=== PATIENT | female | born 1960 | race Caucasian/White ===

== ENCOUNTER 2022-11-12 14:11 | Inpatient (IN) ==
--- NOTE | 2022-11-12 14:48 | Emergency Department Note ---
Impression & Plan Weakness, Anemia, Acute pain of left foot, Osteomyelitis, Failure of outpatient treatment ED Provider Note NAME: KENYETTA SUMMERS AGE: 62 SEX: F : 1960 ARRIVES VIA: Walk-In INFORMANT: [Patient][family] ED PROVIDER(S): [Frank Santana MD] CHIEF COMPLAINT: Weakness HISTORY OF PRESENT ILLNESS: The patient is a 62-year-old female who presents to the ER with increasing weakness to the point where she can no longer care for herself. She does not feel safe at home. She is dealing with an infection in her left foot for which she is receiving antibiotics with dialysis. She has received 3 doses thus far, Tuesday and Tuesday of this week. She did have dialysis today. She see the wound center in [facility]. The patient was referred to the ED for hospitalization and strengthening. The patient was referred by Dr. Mckeon. The patient complains of left foot pain from the infection. Her family thinks the redness looks somewhat better since they started the vancomycin. There has been no fever, no chills, she has not been short of breath. No chest pain, no vomiting or diarrhea. Of note a wound culture was obtained from the wound center and [facility]. The culture grew staph pseudintermedius as well as Enterococcus faecalis. Both organisms appears sensitive to vancomycin. PMHx/PSHx: See Below SOCIAL HISTORY: See Below. PHYSICAL EXAM: GENERAL: Patient is in no acute distress. HEENT: No acute trauma, normocephalic atraumatic, mucous membranes moist, no nasal congestion. NECK: No stridor, no adenopathy, no meningismus, trachea is midline. LUNGS: Markedly diminished breath sounds on the right. The left lung seems fairly clear. HEART: 2/6 systolic murmur. Regular rate and rhythm. ABDOMEN: Soft, nontender, bowel sounds positive, no peritonitis. EXTREMITIES: No cyanosis or edema. The patient has a wound on her left distal lateral foot. There is some drainage on the dressing. A culture was obtained. There is surrounding erythema and some warmth. This area is tender to palpate. Patient has a small ulcer on the plantar aspect of the right foot. No drainage on the dressing, no surrounding erythema. NEUROLOGIC: Oriented x 3, no acute motor or sensory deficits, no focal weakness. SKIN: No jaundice, no diaphoresis. DIFFERENTIAL DIAGNOSIS: Bacteremia or sepsis, cellulitis, osteomyelitis, abscess, electrolyte imbalance, anemia, cardiac ischemia, pleural effusion or pneumonia, among others. EMERGENCY DEPARTMENT COURSE/PROCEDURES: Prior/Outside records reviewed: None. ECG per my interpretation: Indication was weakness. The ECG shows a normal sinus rhythm with a rate of 61. There is LVH present. No concerning ST elevation, no PVCs. The QTc is 438. Continuous Cardiac Monitoring per my interpretation: An order was placed for continuous cardiac monitoring. The monitor shows a rate of 62 with normal sinus rhythm. MEDICAL DECISION MAKING: There is no leukocytosis. The patient is anemic with a hemoglobin of 9. I have no old values to use for comparison. There was a normal platelet count. Sed ra te was elevated at 42, this is consistent with infection/inflammation. Creatinine was high at 2.69, consistent with her dialysis need. Lactic acid level was not elevated making sepsis less likely. ECG showed a normal sinus rhythm with LVH, no ST elevation. Cardiac enzyme testing x1 was slightly elevated. This elevation could be secondary to cardiac injury or potentially just mismatch. The troponin elevation could also be secondary to her renal disease. The patient appeared to be in a euthyroid state. COVID test returned negative. Left foot CT did show osteomyelitis in the area of her ulcer and cellulitis. Chest x-ray did not show pneumonia or CHF per my review. On exam, the patient had a cellulitis with an ulcer to the lateral left foot. There was some warmth present. A culture was obtained. I did speak with the patient about her findings, I spoke with case management. Patient will require a hospital stay and surgical consult. She may require OR intervention. I did speak with the on-call hospitalist. The patient is currently resting comfortably. I did not give any additional antibiotics as she had received vancomycin earlier today with her dialysis. DISPOSITION: The patient presentation and findings warrant a hospital stay. Past Med/Surg History Medical History Anemia CHF (congestive heart failure) HTN (hypertension) Social History Smoking Status: Current every day smoker Cigarettes Per Day: 6; Second Hand Exposure: No; Do You Dip or Chew Tobacco: No; Tobacco Cessation Education Requested by Patient: No Hx Alcohol Use: No Hx Substance Use: No Preferred Language: Italian Communication Ability: Effective Journalist Required: No Beliefs That Will Affect Care: None Current Living Situation: Spouse and Family Other Information That Helps Us Care for You: No Feels Safe at Home: Yes Safety Concerns: Feels Safe At This Time Assistive Devices: Cane, Walker and Wheelchair Allergies Allergies Allergy/AdvReac Type Severity Reaction Status Date / Time morphine Allergy Severe Hallucinati Unverified 11/12/22 19:08 ng codeine Allergy Intermediate Redness of Unverified 11/12/22 19:08 Skin prednisone Allergy Intermediate Itching Unverified 11/12/22 19:08 Home Meds Home Medications Medication Instructions Recorded Confirmed albuterol sulfate 90 mcg/actuation 1 puff inhalation QID PRN bad cough 11/12/22 11/12/22 aerosol inhaler allopurinol 100 mg tablet 100 mg PO DAILY 11/12/22 11/12/22 amitriptyline 100 mg tablet 100 mg PO HS 11/12/22 11/12/22 amlodipine 2.5 mg tablet 2.5 mg PO DAILY 11/12/22 11/12/22 ascorbic acid (vitamin C) 500 mg 500 mg PO DAILY 11/12/22 11/12/22 capsule aspirin 81 mg chewable tablet 81 mg PO DAILY 11/12/22 11/12/22 atorvastatin 40 mg tablet (Lipitor) 40 mg PO HS 11/12/22 11/12/22 cholecalciferol (vitamin D3) 50 50 mcg PO DAILY 11/12/22 11/12/22 mcg (2,000 unit) tablet clonidine HCl 0.1 mg tablet 0.1 mg PO DAILY 11/12/22 11/12/22 clopidogrel 75 mg tablet 75 mg PO DAILY 11/12/22 11/12/22 denosumab 60 mg/mL subcutaneous 60 mg subcut Q6M 11/12/22 11/12/22 syringe (Prolia) docusate sodium 100 mg capsule 100 mg PO DAILY 11/12/22 11/12/22 (Colace) esomeprazole magnesium 40 mg 40 mg PO DAILY 11/12/22 11/12/22 capsule,delayed release (Nexium) ezetimibe 10 mg tablet 10 mg PO DAILY 11/12/22 11/12/22 furosemide 40 mg tablet (Lasix) 40 mg PO DAILY 11/12/22 11/12/22 gentamicin 0.1 % topical ointment 1 applic topical DAILY foot wound 11/12/22 11/12/22 insulin lispro 100 unit/mL 0 - 10 sliding scale dose subcut 11/12/22 11/12/22 subcutaneous pen (Humalog Tempo QID Pen (U-100) Insulin) isosorbide mononitrate 30 mg 30 mg PO HS 11/12/22 11/12/22 tablet,extended release 24 hr latanoprost 0.005 % eye drops 1 drp ophthalmic (eye) HS 11/12/22 11/12/22 levothyroxine 125 mcg tablet 125 mcg PO QAM 11/12/22 11/12/22 lisinopril 40 mg tablet (Zestril) 40 mg PO DAILY 11/12/22 11/12/22 loratadine 10 mg tablet 10 mg PO DAILY 11/12/22 11/12/22 melatonin 10 mg capsule 10 mg PO HS 11/12/22 11/12/22 meloxicam 15 mg tablet 15 mg PO DAILY 11/12/22 11/12/22 metoprolol tartrate 50 mg tablet See Rx Instructions .Route .COMPLEX 11/12/22 11/12/22 nitroglycerin 0.4 mg sublingual See Rx Instructions .Route .COMPLEX 11/12/22 11/12/22 tablet sevelamer carbonate 800 mg tablet 0 mg PO TID 11/12/22 11/12/22 vit B,C-folic ac 800 mcg-zinc 12.5 1 tab PO DAILY 11/12/22 11/12/22 mg-selen-D3 2,000 unit-vit E tablet (RenaPlex-D) zolpidem 5 mg tablet (Ambien) 5 mg PO DAILY 11/12/22 11/12/22 Results & Data (ED) Vital Signs Vital Signs - 24 hr 11/12/22 14:19 11/12/22 16:49 11/12/22 17:00 Temperature 36.8 C Temperature Source Temporal Artery Scan Pulse Rate 60 68 69 Pulse Rate from SpO2 Sensor 69 Respiratory Rate 14 Blood Pressure 133/57 L 173/95 H Blood Pressure Mean 82 121 Pulse Oximetry 97 96 Oxygen Delivery Method Room Air Sepsis Recent Fever Within 48 Hours No Sepsis New/Unexplained Change in Mental Status No Sepsis Action Taken by Nursing No Action Required Home Medications Current Medication List: was personally reviewed by me Laboratory Data Attestation: I reviewed the patient's lab results. 11/12/22 15:26 11/12/22 15:26 Lab Results 11/12/22 11/12/22 11/12/22 Range/Units 14:55 15:26 15:26 WBC 4.17 L (4.8-10.8) K/ul RBC 2.70 L (4.20-5.40) M/uL Hgb 9.0 L (12.0-16.0) g/dl Hct 26.4 L (37.0-47.0) % MCV 97.8 (80.0-100.0) fL MCH 33.3 (25.0-34.0) pg MCHC 34.1 (32.0-36.0) g/dL RDW Std Deviation 58.4 H (36.4-46.3) fL RDW Coeff of Evette 16.4 H (11.5-14.5) % Plt Count 237 (130-400) K/uL MPV 9.8 (9.4-12.4) fL Immature Gran % (Auto) 0.2 % Neut % (Auto) 52.3 % Lymph % (Auto) 36.0 % [place] % (Auto) 9.8 % Eos % (Auto) 1.0 % Baso % (Auto) 0.7 % Neut # (Auto) 2.18 (1.40-6.50) K/uL Lymph # (Auto) 1.50 (1.2-3.4) K/uL [place] # (Auto) 0.41 (0.11-0.59) K/uL Eos # (Auto) 0.04 (0-0.50) K/uL Baso # (Auto) 0.03 (0-0.2) K/uL Immature Gran # (Auto) 0.01 (0.01-0.20) K/uL ESR (0-30) mm/hr Sodium 136 (136-145) mmol/L Potassium 3.7 (3.5-5.1) mmol/L Chloride 96 L (98-107) mmol/L Carbon Dioxide 33 H (21-32) mmol/L Anion Gap 7 (3-11) BUN 13 (6-23) mg/dl Creatinine 2.69 H (0.6-1.2) mg/dl Est Cr Clr Drug Dosing Not Reportable Est GFR ( Amer) 21.3 ml/min Est GFR (Non-Af Amer) 18.4 ml/min BUN/Creatinine Ratio 4.8 L (10-20) Glucose 118 H (70-99(Fasting)) mg/dl POC Glucose (70-99) mg/dl Lactate (0.4-2.0) mmol/L Calcium 8.2 L (8.6-10.3) mg/dl Magnesium 1.9 (1.7-2.4) mg/dl Total Bilirubin 0.5 (0.2-1.0) mg/dl AST 28 (13-39) U/L ALT 22 (7-52) U/L Alkaline Phosphatase 100 (34-104) U/L Troponin I High Sens 15.4 H (0-14) pg/ml C-Reactive Protein < 0.50 (0-0.5) mg/dl Total Protein 6.1 (6.0-8.3) gm/dl Albumin 2.8 L (3.4-5.0) gm/dl Globulin 3.3 (2.5-4.0) gm/dl Albumin/Globulin Ratio 0.8 L (0.9-2) TSH (0.300-4.500) uIu/ml SARS-CoV-2, RNA, NAAT NEGATIVE (NEGATIVE) 11/12/22 11/12/22 11/12/22 Range/Units 15:26 15:26 15:26 WBC (4.8-10.8) K/ul RBC (4.20-5.40) M/uL Hgb (12.0-16.0) g/dl Hct (37.0-47.0) % MCV (80.0-100.0) fL MCH (25.0-34.0) pg MCHC (32.0-36.0) g/dL RDW Std Deviation (36.4-46.3) fL RDW Coeff of Evette (11.5-14.5) % Plt Count (130-400) K/uL MPV (9.4-12.4) fL Immature Gran % (Auto) % Neut % (Auto) % Lymph % (Auto) % Dod[place]idge % (Auto) % Eos % (Auto) % Baso % (Auto) % Neut # (Auto) (1.40-6.50) K/uL Lymph # (Auto) (1.2-3.4) K/uL Dod[place] # (Auto) (0.11-0.59) K/uL Eos # (Auto) (0-0.50) K/uL Baso # (Auto) (0-0.2) K/uL Immature Gran # (Auto) (0.01-0.20) K/uL ESR 42 H (0-30) mm/hr Sodium (136-145) mmol/L Potassium (3.5-5.1) mmol/L Chloride (98-107) mmol/L Carbon Dioxide (21-32) mmol/L Anion Gap (3-11) BUN (6-23) mg/dl Creatinine (0.6-1.2) mg/dl Est Cr Clr Drug Dosing Est GFR ( Amer) ml/min Est GFR (Non-Af Amer) ml/min BUN/Creatinine Ratio (10-20) Glucose (70-99(Fasting)) mg/dl POC Glucose (70-99) mg/dl Lactate 0.9 (0.4-2.0) mmol/L Calcium (8.6-10.3) mg/dl Magnesium (1.7-2.4) mg/dl Total Bilirubin (0.2-1.0) mg/dl AST (13-39) U/L ALT (7-52) U/L Alkaline Phosphatase (34-104) U/L Troponin I High Sens (0-14) pg/ml C-Reactive Protein (0-0.5) mg/dl Total Protein (6.0-8.3) gm/dl Albumin (3.4-5.0) gm/dl Globulin (2.5-4.0) gm/dl Albumin/Globulin Ratio (0.9-2) TSH 1.995 (0.300-4.500) uIu/ml SARS-CoV-2, RNA, NAAT (NEGATIVE) 11/12/22 Range/Units 16:08 WBC (4.8-10.8) K/ul RBC (4.20-5.40) M/uL Hgb (12.0-16.0) g/dl Hct (37.0-47.0) % MCV (80.0-100.0) fL MCH (25.0-34.0) pg MCHC (32.0-36.0) g/dL RDW Std Deviation (36.4-46.3) fL RDW Coeff of Evette (11.5-14.5) % Plt Count (130-400) K/uL MPV (9.4-12.4) fL Immature Gran % (Auto) % Neut % (Auto) % Lymph % (Auto) % Dod[place]idge % (Auto) % Eos % (Auto) % Baso % (Auto) % Neut # (Auto) (1.40-6.50) K/uL Lymph # (Auto) (1.2-3.4) K/uL [place] # (Auto) (0.11-0.59) K/uL Eos # (Auto) (0-0.50) K/uL Baso # (Auto) (0-0.2) K/uL Immature Gran # (Auto) (0.01-0.20) K/uL ESR (0-30) mm/hr Sodium (136-145) mmol/L Potassium (3.5-5.1) mmol/L Chloride (98-107) mmol/L Carbon Dioxide (21-32) mmol/L Anion Gap (3-11) BUN (6-23) mg/dl Creatinine (0.6-1.2) mg/dl Est Cr Clr Drug Dosing Est GFR ( Amer) ml/min Est GFR (Non-Af Amer) ml/min BUN/Creatinine Ratio (10-20) Glucose (70-99(Fasting)) mg/dl POC Glucose 93 (70-99) mg/dl Lactate (0.4-2.0) mmol/L Calcium (8.6-10.3) mg/dl Magnesium (1.7-2.4) mg/dl Total Bilirubin (0.2-1.0) mg/dl AST (13-39) U/L ALT (7-52) U/L Alkaline Phosphatase (34-104) U/L Troponin I High Sens (0-14) pg/ml C-Reactive Protein (0-0.5) mg/dl Total Protein (6.0-8.3) gm/dl Albumin (3.4-5.0) gm/dl Globulin (2.5-4.0) gm/dl Albumin/Globulin Ratio (0.9-2) TSH (0.300-4.500) uIu/ml SARS-CoV-2, RNA, NAAT (NEGATIVE) Administered Medications Atorvastatin Calcium (Atorvastatin 40 Mg Tab) 40 mg PO HS [facility] Stop: 12/12/22 20:59 Last Admin: 11/12/22 21:44 Dose: 40 mg Documented By: RLP Heparin Sodium (Porcine) (Heparin Sod 5,000 Unit/0.5 Ml Vial) 5,000 units SQ Q12 [facility] Stop: 12/12/22 20:59 Last Admin: 11/12/22 21:44 Dose: 5,000 units Documented By: RLP Insulin Glargine (Lantus Per Unit Charge) 0 units SQ BID [facility]; Protocol Stop: 12/12/22 20:59 Last Admin: 11/12/22 21:45 Dose: Not Given Documented By: RLP Isosorbide Mononitrate (Isosorbide [place] Extended Rel 30 Mg Tabcr) 30 mg [address] [facility] Stop: 12/12/22 20:59 Last Admin: 11/12/22 21:45 Dose: 30 mg Documented By: RLP Metoprolol Tartrate (Metoprolol Tartrate 50 Mg Tab) 100 mg PO QPM [facility] Stop: 12/12/22 20:59 Last Admin: 11/12/22 21:45 Dose: 100 mg Documented By: RLP Miscellaneous (Remove Nicoderm Patch) 1 each N/A DAILY@0859 [facility] Stop: 12/12/22 19:29 Last Admin: 11/12/22 21:40 Dose: Not Given Documented By: RLP Nicotine (Nicotine 21 Mg/24 Hr Tdsy) 21 mg TD QAM [facility] Stop: 12/12/22 18:59 Last Admin: 11/12/22 21:40 Dose: Not Given Documented By: RLP Zolpidem Tartrate (Zolpidem Tartrate 5 Mg Tab) 5 mg PO HS [facility] Stop: 12/12/22 20:59 Last Admin: 11/12/22 21:47 Dose: 5 mg Documented By: RLP Discontinued Medications Insulin Aspart (Insulin Aspart Per Unit Charge) 0 units SC ACHS [facility] Stop: 12/12/22 20:59 Last Admin: 11/12/22 21:45 Dose: Not Given Documented By: RLP Imaging Data Radiologist's Impression: Chest X-Ray 11/12/22 14:26 XR chest 1V portable CLINICAL HISTORY: weakness TECHNIQUE: Single frontal radiograph of the chest was obtained. Comparison: None available at the time of this dictation. FINDINGS: No recorded versus previous pacemaker is seen. Calcified aortic knob is seen. The lungs are clear. No evidence of pleural effusion or pneumothorax. IMPRESSION: No acute chest disease. ACT 112: Negative or not required by law. Electronically signed by: Richard Chirinos M.D. 11/12/2022 3:[address] 11/12/22 14:42 CT SCAN OF THE LEFT FOOT WITHOUT IV CONTRAST CLINICAL HISTORY: Foot infection. COMPARISON STUDY: No priors. TECHNIQUE: CT scan of the left foot is performed from the ankle to the base of the foot. Images are reviewed in the axial, sagittal, and coronal planes. IV contrast was not administered for this examination. A dose lowering technique was utilized adhering to the principles of ALARA. Note that interpretation is significantly suboptimal without plain film correlate. CT DOSE: 291.20 mGy.cm FINDINGS: The skeletal structures are heterogeneously osteopenic. No acute fracture is seen. The ankle mortise is intact. The first distal phalanx is not identified and presumed surgically absent. A soft tissue ulceration is suggested overlying the fifth metatarsal. There is erosive/destructive change involving the fifth proximal phalanx, likely representing osteomyelitis. The fifth middle and distal phalanges are not visualized. There is significant inflammation with soft tissue gas and fluid seen overlying the distal fifth metatarsal. No organized/drainable fluid collection is identified to suggest abscess on this unenhanced examination. No additional foci of bony erosion are seen. Mild arthritic changes are seen throughout the foot. There are small dorsal and plantar calcaneal enthesophytes. The Achilles tendon is intact as visualized. Moderate soft tissue edema is seen throughout the remainder of the foot and ankle. Atherosclerotic calcification is observed in the regional arteries. IMPRESSION: 1. A soft tissue ulceration is suggested overlying the fifth metatarsal head with evidence of surrounding cellulitis. No organized/drainable fluid collection is seen on this unenhanced examination. 2. Erosive/destructive changes are present within the base of the fifth proximal phalanx. This likely represents osteomyelitis. Correlate clinically. 3. The fifth middle and distal phalanges and the first distal phalanx are not identified and may be surgically absent. Correlate clinically. 4. No additional foci of destructive bony change are are seen throughout the remainder of the foot. No fracture is identified. ACT 112: Negative or not required by law. Dictated: 11/12/2022 4:31 PM Transcribed: 11/12/2022 4:55 PM [facility] [id number] [email or web address] Electronically signed by: Frank Jones M.D. 11/12/2022 5:17 PM Duplex Scan Lower Extremity Artery 11/12/22 17:40 Exam(s): US ARTERIAL BILATERAL LOWER EXTREMITIES EXAM: US Duplex Bilateral Lower Extremities Arteries CLINICAL HISTORY: Reason for exam: diabetic ulcers. TECHNIQUE: Real-time duplex ultrasound scan of the bilateral lower extremity arteries integrating B-mode two-dimensional vascular structure, Doppler spectral analysis and color flow Doppler imaging. COMPARISON: No relevant prior studies available. FINDINGS: There is extensive atherosclerotic vascular disease in the right lower extremity arteries without arterial occlusion in either leg. RIGHT LOWER EXTREMITY Common femoral artery: 217 cm/s, triphasic. Deep femoral artery: 65 cm/s, biphasic. Proximal SFA: 127 cm/s, triphasic. Mid SFA: 137 cm/s, biphasic. Distal SFA: 85 cm/s, monophasic. Proximal popliteal artery: 72 cm/s, monophasic. Distal popliteal artery: 93 cm/s, monophasic. Proximal posterior tibial artery: 92 cm/s, monophasic. Distal posterior tibial artery: 119 cinders per second, monophasic. Proximal anterior tibial artery: 43 cm/s, monophasic. Distal anterior tibial artery: 6 cm/s, monophasic. Proximal peroneal artery: 128 cm/s, monophasic. Distal peroneal artery: 74 cm/s, monophasic. Dorsalis pedis artery: 41 cm/s, monophasic. LEFT LOWER EXTREMITY Common femoral artery: 185 cm/s, triphasic. Deep femoral artery: 137 cm/s, monophasic. Proximal SFA: 295 cm/s, monophasic. Mid SFA: 160 cm/s, monophasic. Distal SFA: 103 cm/s, monophasic. Proximal popliteal artery: 186 cm/s, monophasic. Proximal posterior tibial artery: 79 cm/s, monophasic. Distal posterior tibial artery: 31 cm/s, monophasic. Proximal anterior tibial artery: 95 cm/s, monophasic. Distal anterior tibial artery: 69 cm/s, monophasic. Proximal peroneal artery: 99 cinders per second, monophasic. Distal peroneal artery: 28 cm/s, monophasic. Dorsalis pedis artery: 53 cm/s, monophasic. IMPRESSION: 1. Patent bilateral lower exam he arteries with extensive atherosclerotic vascular disease. Predominantly monophasic waveforms bilaterally. 2. In the right leg, greatest stenosis is at the common femoral artery with estimated 50-74% based on peak systolic velocity criteria. 3. In the left leg, greatest stenosis is at the proximal SFA with estimated stenosis of 50-74% based on peak systolic velocity criteria. Electronically signed by: Marya Cintron M.D. 11/12/22 20:39 PM Discharge Plan Visit Data Chief Complaint: Weakness Stated Complaint: WEAKNESS ED Provider: Frank Santana Discharge Problem: Weakness, Anemia, Acute pain of left foot, Osteomyelitis, Failure of outpatient treatment Patient Disposition: Admitted As Inpatient Condition: Good Discharge Instructions Interventions: ED Discharge Assessment Last Done: 11/12/22 20:15
--- NOTE | 2022-11-12 15:17 | Electrocardiogram Report ---
Test Reason : Blood Pressure : / mmHG Vent. Rate : 061 BPM Atrial Rate : 061 BPM P-R Int : 148 ms QRS Dur : 088 ms QT Int : 436 ms P-R-T Axes : 008 -16 080 degrees QTc Int : 438 ms Normal sinus rhythm Left ventricular hypertrophy with repolarization abnormality Abnormal ECG No previous ECGs available Confirmed by Danny Jones ([id number]) on 11/12/2022 3:17:14 PM Referred By: Confirmed By:Danny Jones
--- NOTE | 2022-11-12 15:24 | XRay Report ---
XR chest 1V portable CLINICAL HISTORY: weakness TECHNIQUE: Single frontal radiograph of the chest was obtained. Comparison: None available at the time of this dictation. FINDINGS: No recorded versus previous pacemaker is seen. Calcified aortic knob is seen. The lungs are clear. No evidence of pleural effusion or pneumothorax. IMPRESSION: No acute chest disease. ACT 112: Negative or not required by law. Electronically signed by: Richard Chirinos M.D. 11/12/2022 3:23 PM
[2022-11-12 15:45] LABS: Basophils # (auto) 0.03 K/uL (0-0.2); Basophils % (auto) 0.7 %; Eosinophils # (auto) 0.04 K/uL (0-0.50); Hematocrit (blood only) 26.4 % (37.0-47.0); Immature Granulocytes # (auto) 0.01 K/uL (0.01-0.20); Immature Granulocytes % (auto) 0.2 %; Mean Corpuscular Hemoglobin 33.3 pg (25.0-34.0); Mean Corpuscular Hgb Conc 34.1 g/dL (32.0-36.0); Mean Corpuscular Volume 97.8 fL (80.0-100.0); Mean Platelet Volume 9.8 fL (9.4-12.4); Monocytes # (auto) 0.41 K/uL (0.11-0.59); Monocytes % (auto) 9.8 %; Neutrophils # (auto) 2.18 K/uL (1.40-6.50); Neutrophils % (auto) 52.3 %; Platelet Count 237 K/uL (130-400); RDW Coefficient of Variation 16.4 % (11.5-14.5); RDW Standard Deviation 58.4 fL (36.4-46.3); White Blood Count 4.17 K/ul (4.8-10.8)
[2022-11-12 16:01] LABS: Alanine Aminotransferase 22 U/L (7-52); Albumin Globulin Ratio 0.8 (0.9-2); Albumin Level 2.8 gm/dl (3.4-5.0); Alkaline Phosphatase 100 U/L (34-104); Anion Gap 7 (3-11); Aspartate Aminotransferase 28 U/L (13-39); BUN Creatinine Ratio 4.8 (10-20); Bilirubin,Total 0.5 mg/dl (0.2-1.0); Blood Urea Nitrogen 13 mg/dl (6-23); Calcium 8.2 mg/dl (8.6-10.3); Carbon Dioxide 33 mmol/L (21-32); Chloride 96 mmol/L (98-107); Est GFR (African American) 21.3 ml/min; Est GFR (Non-African American) 18.4 ml/min; Globulin 3.3 gm/dl (2.5-4.0); Glucose 118 mg/dl (70-99(Fasting)); Magnesium 1.9 mg/dl (1.7-2.4); Potassium 3.7 mmol/L (3.5-5.1); Sodium 136 mmol/L (136-145); Total Protein 6.1 gm/dl (6.0-8.3)
[2022-11-12 16:06] LABS: Troponin I High Sensitivity 15.4 pg/ml (0-14)
--- NOTE | 2022-11-12 17:18 | CT Scan Report ---
CT SCAN OF THE LEFT FOOT WITHOUT IV CONTRAST CLINICAL HISTORY: Foot infection. COMPARISON STUDY: No priors. TECHNIQUE: CT scan of the left foot is performed from the ankle to the base of the foot. Images are r eviewed in the axial, sagittal, and coronal planes. IV contrast was not administered for this examina tion. A dose lowering technique was utilized adhering to the principles of ALARA. Note that interpret ation is significantly suboptimal without plain film correlate. CT DOSE: 291.20 mGy.cm FINDINGS: The skeletal structures are heterogeneously osteopenic. No acute fracture is seen. The ankl e mortise is intact. The first distal phalanx is not identified and presumed surgically absent. A sof t tissue ulceration is suggested overlying the fifth metatarsal. There is erosive/destructive change involving the fifth proximal phalanx, likely representing osteomyelitis. The fifth middle and distal phalanges are not visualized. There is significant inflammation with soft tissue gas and fluid seen o verlying the distal fifth metatarsal. No organized/drainable fluid collection is identified to sugges t abscess on this unenhanced examination. No additional foci of bony erosion are seen. Mild arthritic changes are seen throughout the foot. There are small dorsal and plantar calcaneal enthesophytes. Th e Achilles tendon is intact as visualized. Moderate soft tissue edema is seen throughout the remainde r of the foot and ankle. Atherosclerotic calcification is observed in the regional arteries. IMPRESSION: 1. A soft tissue ulceration is suggested overlying the fifth metatarsal head with evidence of surroun ding cellulitis. No organized/drainable fluid collection is seen on this unenhanced examination. 2. Erosive/destructive changes are present within the base of the fifth proximal phalanx. This likely represents osteomyelitis. Correlate clinically. 3. The fifth middle and distal phalanges and the first distal phalanx are not identified and may be s urgically absent. Correlate clinically. 4. No additional foci of destructive bony change are are seen throughout the remainder of the foot. N o fracture is identified. ACT 112: Negative or not required by law. Dictated: 11/12/2022 4:31 PM Transcribed: 11/12/2022 4:55 PM [facility] [id number] [email or web address] Electronically signed by: Frank Jones M.D. 11/12/2022 5:17 PM
--- NOTE | 2022-11-12 17:47 | History & Physical Report ---
Date of Service November 12, 2022 Assessment & Plan (1) Osteomyelitis of left foot: Plan: -Admit to med/surge -Currently stable -Patient has had an ongoing infection of the left fifth toe amputation site, procedure was approximately 2 months ago a CHRISTY Foley -Has been following with the wound care clinic in [place], [facility] cultures from 10/19/22 grew Staph Pseudintermedius and Enterococcus faecalis both sensitive to vancomycin >Patient has been receiving Vancomycin on dialysis days for the past 2 weeks with her last dose today -No signs of cellulitis or tracking around the left foot wound, will hold antibiotics for now until she can have the bone biopsied by Podiatry -Podiatry consult placed, will make NPO at midnight in case of OR tomorrow -Will obtain BL arterial dopplers of the lower extremities for further evaluation as this is a diabetic foot infection -Blood cultures obtained in the ED, continue to follow -Pain control with PO tylenol to start, could slowly advance as needed -AM CBC, CMP, Mag, Phos, PT/INR -SQ heparin 5000 units q12h for DVT PPX. Will give HS dose tonight and put hold on am dose in case of OR tomorrow (2) Elevated troponin: Plan: -Initial high sen trop elevated at 15 -Patient is asymptomatic and without acute ECG changes -Likely mildly elevated due to her ESRD on HD status -Will not repeat another at this time, monitor for any cardiac symptoms (3) Ambulatory dysfunction: Plan: -Patient has had multiple falls over the past 3 months -Requesting help with rehab placement -PT/OT/CM consults placed (4) Insomnia: Plan: -Continue home ambien (5) Hypothyroidism: Plan: -Continue levothyroxine (6) Anemia: Plan: -Hgb at 9, no previous baseline -Continue irone, B12, and folic acid -Monitor daily CBC (7) Tobacco abuse: Plan: -Continue to stress importance of cessation -Nicotine patches ordered (8) Hyperlipidemia: Plan: -Continue atorvastatin (9) HTN (hypertension): Plan: -Stable -Continue lisinopril, amlodipine, lasix -Continue clonidine on non-dialysis days (10) S/P drug eluting coronary stent placement: Plan: -Patient reports PCI with WILLIAM placement approximately one year ago, we have no previous records -Continue aspirin and plavix (11) Hemodialysis status: Plan: -MWF -Had full session earlier today -Electrolytes WNL -Follows with Dr. Mckeon -Nephrology consult placed -Continue renal vitamins -AM CBC, Mag, Phos (12) CAD (coronary artery disease): Plan: -Continue aspirin, plavix, metoprolol, and statin (13) DM II (diabetes mellitus, type II), controlled: Plan: -Monitor BSG ACHS, goal in 110-140 -Takes 27 units of Glargine daily at home, will start with 10 units BID to avoid hypoglycemia -CF of 50 ACHS -DMII and renal dialysis diet -Pharmacy glycemic consult (14) CHF (congestive heart failure): Plan: -Unsure of severity as no previous records on file -Currently euvolemic after dialysis today -Continue lasix, Imdur Plan The patient was discussed with Dr. Franks at the time of the admission History of Present Illness Chief Complaint: Lower extremity wounds Primary Care Provider: Christina Alcantar PA-C Jacqui is a 62 year old female with a PMH significant for ESRD on HD MWF (Follows with Dr. Mckeon), DM II, HLD, CAD S/P PCI and WILLIAM placement x 2 approximately 1 year ago, Hypothyroidism, insomnia, and current left foot infection, currently receiving outpatient vancomycin. In the ED the patient was noted to be stable. Labs were significant for a leukopenia of 4.17, Cr of 2.69 with stable electrolytes, high sen trop of 15, and covid 19 negative. Chest xray was negative for acute findings. CT of the left foot without IV con was read as "1. A soft tissue ulceration is suggested overlying the fifth metatarsal head with evidence of surrounding cellulitis. No organized/drainable fluid collection is seen on this unenhanced examination. 2. Erosive/destructive changes are present within the base of the fifth proximal phalanx. This likely represents osteomyelitis. Correlate clinically. 3. The fifth middle and distal phalanges and the first distal phalanx are not identified and may be surgically absent. Correlate clinically. 4. No additional foci of destructive bony change are are seen throughout the remainder of the foot. No fracture is identified.". We were asked to admit the patient for further evaluation/treatment of her osteomyelitis and rehab placement. At the time of the exam the patient was lying in bed in no acute distress. She states that she has been dealing with an infection at her left fifth toe amputation site since it was amputated approximately 2 months ago at [facility]. Wound cultures obtained from [facility] in [place] from 10/19/22 grew Staph Pseudintermedius and Enterococcus faecalis both sensitive to vancomycin. She had been receiving Vancomycin in coordination with her dialysis appointments. She states that she had two doses of vancomycin last week and three doses this week. She had her last dose of vancomycin earlier today and also notes a full dialysis session today. She came to the ED today because she is too weak for she and her family to care for her at this time. Over the past 3-4 months she has had multiple mechanical falls at home due to ambulatory dysfunction from her left foot infection. She still has a bruise on her right cheek from a fall which occur approximately 3 weeks ago. This fall occurred in her kitchen when she was walking to the family room. She feel and hit her face but denies losing consciousness. She was evaluated at the [facility] ED and states that she had imaging of her head and face that were negative for any fractures or bleeding. We discussed code status, she wishes to be a DNR/DNI and would want her to make medical decisions for her if she cannot make them herself. Please refer to Dr. Franks's attestation for any changes to the treatment plan Allergies Allergy/AdvReac Type Severity Reaction Status Date / Time morphine Allergy Severe Hallucinati Unverified 11/12/22 19:08 ng codeine Allergy Intermediate Redness of Unverified 11/12/22 19:08 Skin prednisone Allergy Intermediate Itching Unverified 11/12/22 19:08 Home Medications Medication Instructions Recorded Confirmed Type albuterol sulfate 90 mcg/actuation 1 puff inhalation QID PRN bad cough 11/12/22 11/12/22 History aerosol inhaler allopurinol 100 mg tablet 100 mg PO DAILY 11/12/22 11/12/22 History amitriptyline 100 mg tablet 100 mg PO HS 11/12/22 11/12/22 History amlodipine 2.5 mg tablet 2.5 mg PO DAILY 11/12/22 11/12/22 History ascorbic acid (vitamin C) 500 mg 500 mg PO DAILY 11/12/22 11/12/22 History capsule aspirin 81 mg chewable tablet 81 mg PO DAILY 11/12/22 11/12/22 History atorvastatin 40 mg tablet (Lipitor) 40 mg PO HS 11/12/22 11/12/22 History cholecalciferol (vitamin D3) 50 50 mcg PO DAILY 11/12/22 11/12/22 History mcg (2,000 unit) tablet clonidine HCl 0.1 mg tablet 0.1 mg PO DAILY 11/12/22 11/12/22 History clopidogrel 75 mg tablet 75 mg PO DAILY 11/12/22 11/12/22 History denosumab 60 mg/mL subcutaneous 60 mg subcut Q6M 11/12/22 11/12/22 History syringe (Prolia) docusate sodium 100 mg capsule 100 mg PO DAILY 11/12/22 11/12/22 History (Colace) esomeprazole magnesium 40 mg 40 mg PO DAILY 11/12/22 11/12/22 History capsule,delayed release (Nexium) ezetimibe 10 mg tablet 10 mg PO DAILY 11/12/22 11/12/22 History furosemide 40 mg tablet (Lasix) 40 mg PO DAILY 11/12/22 11/12/22 History gentamicin 0.1 % topical ointment 1 applic topical DAILY foot wound 11/12/22 11/12/22 History insulin lispro 100 unit/mL 0 - 10 sliding scale dose subcut 11/12/22 11/12/22 History subcutaneous pen (Humalog Tempo QID Pen (U-100) Insulin) isosorbide mononitrate 30 mg 30 mg PO HS 11/12/22 11/12/22 History tablet,extended release 24 hr latanoprost 0.005 % eye drops 1 drp ophthalmic (eye) HS 11/12/22 11/12/22 History levothyroxine 125 mcg tablet 125 mcg PO QAM 11/12/22 11/12/22 History lisinopril 40 mg tablet (Zestril) 40 mg PO DAILY 11/12/22 11/12/22 History loratadine 10 mg tablet 10 mg PO DAILY 11/12/22 11/12/22 History melatonin 10 mg capsule 10 mg PO HS 11/12/22 11/12/22 History meloxicam 15 mg tablet 15 mg PO DAILY 11/12/22 11/12/22 History metoprolol tartrate 50 mg tablet See Rx Instructions .Route .COMPLEX 11/12/22 11/12/22 History nitroglycerin 0.4 mg sublingual See Rx Instructions .Route .COMPLEX 11/12/22 11/12/22 History tablet sevelamer carbonate 800 mg tablet 0 mg PO TID 11/12/22 11/12/22 History vit B,C-folic ac 800 mcg-zinc 12.5 1 tab PO DAILY 11/12/22 11/12/22 History mg-selen-D3 2,000 unit-vit E tablet (RenaPlex-D) zolpidem 5 mg tablet (Ambien) 5 mg PO DAILY 11/12/22 11/12/22 History Past Med/Surg History Medical History (Updated 11/13/22 @ 09:58 by Frank Leon PA-C) Anemia CHF (congestive heart failure) ESRD (end stage renal disease) on dialysis HD . Follows with Dr. Mckeon HTN (hypertension) Social History Smoking Status: Current every day smoker Cigarettes Per Day: 6; Second Hand Exposure: No; Do You Dip or Chew Tobacco: No; Tobacco Cessation Education Requested by Patient: No Hx Alcohol Use: No Hx Substance Use: No Preferred Language: Sudanese Communication Ability: Effective Automation Tech Required: No Beliefs That Will Affect Care: None Current Living Situation: Spouse and Family Other Information That Helps Us Care for You: No Feels Safe at Home: Yes Safety Concerns: Feels Safe At This Time Assistive Devices: Denture - Upper, Denture - Lower, Walker and Wheelchair Physical Exam Physical Exam: Physical Exam: General: In no acute distress, stated age, chronically ill appearing HEENT: Normocephalic, patient with bruising on the right cheek in various stages of healing, no scleral icterus, pupils around round, symmetrical, and reactive to light, moist mucus membranes, trachea midline, no thyromegaly Chest/Pulm: Loop recorder located in the left upper chest, No respiratory distress, symmetrical chest expansion, clear breath sounds throughout Cardiac: RRR, no murmurs noted Abdomen: Negative for ascites and bruising, normoactive bowel sounds, soft, non-tender to palpation throughout Musculoskeletal: Patient with left fifit toe amputation site currently with purulent drainage and minimal surrounding erythema, no signs of sinus tracking up the left leg, S/P right great toe amputation Extremities: AV fistula in the right forearm with intact thrill, left Radial, dorsalis pedis, and posterior tibial pulses are intact and symmetrical, no edema noted in the BL LE's Skin: Patient with multiple healing skin tears on the forearms due to previous falls and scratches, no signs of infection, left foot infection as described above Neuro: Alert and oriented to person, place, month, year, and president, no focal defects, CN II-XII tested and intact, no tremors noted Psych: No acute distress, calm and cooperative during the exam Results & Data Results & Data Vital Signs (Past 12 Hours) Vital Signs Temp Pulse Resp BP Pulse Ox O2 Del Method 11/12/22 17:00 69 14 173/95 H 96 11/12/22 16:49 68 11/12/22 14:19 36.8 C 60 133/57 L 97 Room Air Laboratory Results Abnormal lab results 11/12/22 11/12/22 Range/Units 15:26 15:26 WBC 4.17 L (4.8-10.8) K/ul RBC 2.70 L (4.20-5.40) M/uL Hgb 9.0 L (12.0-16.0) g/dl Hct 26.4 L (37.0-47.0) % RDW Std Deviation 58.4 H (36.4-46.3) fL RDW Coeff of Evette 16.4 H (11.5-14.5) % Chloride 96 L (98-107) mmol/L Carbon Dioxide 33 H (21-32) mmol/L Creatinine 2.69 H (0.6-1.2) mg/dl BUN/Creatinine Ratio 4.8 L (10-20) Glucose 118 H (70-99(Fasting)) mg/dl Calcium 8.2 L (8.6-10.3) mg/dl Troponin I High Sens 15.4 H (0-14) pg/ml Albumin 2.8 L (3.4-5.0) gm/dl Albumin/Globulin Ratio 0.8 L (0.9-2) Diagnostic Findings Chest X-Ray 11/12/22 14:26 XR chest 1V portable CLINICAL HISTORY: weakness TECHNIQUE: Single frontal radiograph of the chest was obtained. Comparison: None available at the time of this dictation. FINDINGS: No recorded versus previous pacemaker is seen. Calcified aortic knob is seen. The lungs are clear. No evidence of pleural effusion or pneumothorax. IMPRESSION: No acute chest disease. ACT 112: Negative or not required by law. Electronically signed by: Richard Chirinos M.D. 11/12/2022 3:[address] 11/12/22 14:42 CT SCAN OF THE LEFT FOOT WITHOUT IV CONTRAST CLINICAL HISTORY: Foot infection. COMPARISON STUDY: No priors. TECHNIQUE: CT scan of the left foot is performed from the ankle to the base of the foot. Images are reviewed in the axial, sagittal, and coronal planes. IV contrast was not administered for this examination. A dose lowering technique was utilized adhering to the principles of ALARA. Note that interpretation is significantly suboptimal without plain film correlate. CT DOSE: 291.20 mGy.cm FINDINGS: The skeletal structures are heterogeneously osteopenic. No acute fracture is seen. The ankle mortise is intact. The first distal phalanx is not identified and presumed surgically absent. A soft tissue ulceration is suggested overlying the fifth metatarsal. There is erosive/destructive change involving the fifth proximal phalanx, likely representing osteomyelitis. The fifth middle and distal phalanges are not visualized. There is significant inflammation with soft tissue gas and fluid seen overlying the distal fifth metatarsal. No organized/drainable fluid collection is identified to suggest abscess on this unenhanced examination. No additional foci of bony erosion are seen. Mild arthritic changes are seen throughout the foot. There are small dorsal and plantar calcaneal enthesophytes. The Achilles tendon is intact as visualized. Moderate soft tissue edema is seen throughout the remainder of the foot and ankle. Atherosclerotic calcification is observed in the regional arteries. IMPRESSION: 1. A soft tissue ulceration is suggested overlying the fifth metatarsal head with evidence of surrounding cellulitis. No organized/drainable fluid collection is seen on this unenhanced examination. 2. Erosive/destructive changes are present within the base of the fifth proximal phalanx. This likely represents osteomyelitis. Correlate clinically. 3. The fifth middle and distal phalanges and the first distal phalanx are not identified and may be surgically absent. Correlate clinically. 4. No additional foci of destructive bony change are are seen throughout the remainder of the foot. No fracture is identified. ACT 112: Negative or not required by law. Dictated: 11/12/2022 4:31 PM Transcribed: 11/12/2022 4:55 PM Néstor [id number] [email or web address] Electronically signed by: Frank Jones M.D. 11/12/2022 5:17 PM ECG Additional Comments: Normal sinus rhythm Left ventricular hypertrophy with repolarization abnormality Abnormal ECG No previous ECGs available Confirmed by Danny Jones ([id number]) on 11/12/2022 3:17:14 PM Code Status & VTE Plan Code Status DNR/DNI VTE Prophylaxis Plan VTE Prophylaxis will be ordered: Yes Supervising Physician Co-Signing Physician Notes I personally saw and examined the patient. I verified all morris points and agree with Jass Zhao PA-C with the following exceptions and/or additions: 62 year old female presents to the ER on advice of her java jsf developer for generalized decline. Ongoing wound care after amputation of her 5th toe and diabetic wound O/E A&Ox3, HS RRR, systolic murmur, Chest CTAB, Abdo SNT, left 5th toe amputation with slough on base and mild surrounding erythema A/P Osteomyelitis / diabetic ulcer - currently on vancomycin as outpatient however recommend getting bone biopsy before continuing further antibiotics therefore no further antibiotics currently prescribed. US arterial doppler. Consult podiatry for potential need for amputation. Generalized decline - PT/OT ESRD on dialysis - consult nephrology PG Care Time/CCT Total # of Minutes Spent Total Time Spent with Patient: Total time spent is greater than 50% in coordination of care (as documented) at patient's floor/unit and/or counseling patient: Coding [place] [address] INT INP/OBS CARE 3/75MIN Patient Type Established Medical Decision Making High Complexity Diagnoses Osteomyelitis of left foot M86.9 Elevated troponin R77.8 Ambulatory dysfunction R26.2 Insomnia G47.00 Hypothyroidism E03.9 Anemia D64.9 Tobacco abuse Z72.0 Hyperlipidemia E78.5 HTN (hypertension) I10 S/P drug eluting coronary stent placement Z95.5 Hemodialysis status Z99.2 CAD (coronary artery disease) I25.10 DM II (diabetes mellitus, type II), controlled E11.9 CHF (congestive heart failure) I50.9
[2022-11-12] MEDS ORDERED: DEXTROSE 50% 50 ML SYRINGE IV PRN (18:38)
[2022-11-12] MEDS ORDERED: GLUCAGON FOR INJ 1 MG VIAL SQ PRN (18:38)
[2022-11-12] MEDS ORDERED: GLUCOSE 40% GEL 15 GM TUBE PO PRN (18:38)
[2022-11-12] MEDS ORDERED: GLUCOSE 10 TAB/TUBE PO PRN (18:38)
[2022-11-12] MEDS ORDERED: CARBOHYDRATES FOR HYPOGLYCEMIA PO PRN (18:38)
[2022-11-12] MEDS ORDERED: PHARMACY GLYCEMIC MGMT CONSULT PRN (18:40)
[2022-11-12] MEDS ORDERED: Patient's ALLERGY Info needs ENTERED SCH (19:15)
[2022-11-12 19:47] LABS: C Reactive Protein < 0.50 mg/dl (0-0.5)
[2022-11-12] MEDS ORDERED: ACETAMINOPHEN 325 MG TAB PO PRN (20:34)
[2022-11-12] MEDS ORDERED: ALBUTEROL HFA 8 GM INHALER INH PRN (20:34)
--- NOTE | 2022-11-12 20:40 | Ultrasound Report ---
Exam(s): US ARTERIAL BILATERAL LOWER EXTREMITIES EXAM: US Duplex Bilateral Lower Extremities Arteries CLINICAL HISTORY: Reason for exam: diabetic ulcers. TECHNIQUE: Real-time duplex ultrasound scan of the bilateral lower extremity arteries integrating B-mode two-dimensional vascular structure, Doppler spectral analysis and color flow Doppler imaging. COMPARISON: No relevant prior studies available. FINDINGS: There is extensive atherosclerotic vascular disease in the right lower extremity arteries without arterial occlusion in either leg. RIGHT LOWER EXTREMITY Common femoral artery: 217 cm/s, triphasic. Deep femoral artery: 65 cm/s, biphasic. Proximal SFA: 127 cm/s, triphasic. Mid SFA: 137 cm/s, biphasic. Distal SFA: 85 cm/s, monophasic. Proximal popliteal artery: 72 cm/s, monophasic. Distal popliteal artery: 93 cm/s, monophasic. Proximal posterior tibial artery: 92 cm/s, monophasic. Distal posterior tibial artery: 119 cinders per second, monophasic. Proximal anterior tibial artery: 43 cm/s, monophasic. Distal anterior tibial artery: 6 cm/s, monophasic. Proximal peroneal artery: 128 cm/s, monophasic. Distal peroneal artery: 74 cm/s, monophasic. Dorsalis pedis artery: 41 cm/s, monophasic. LEFT LOWER EXTREMITY Common femoral artery: 185 cm/s, triphasic. Deep femoral artery: 137 cm/s, monophasic. Proximal SFA: 295 cm/s, monophasic. Mid SFA: 160 cm/s, monophasic. Distal SFA: 103 cm/s, monophasic. Proximal popliteal artery: 186 cm/s, monophasic. Proximal posterior tibial artery: 79 cm/s, monophasic. Distal posterior tibial artery: 31 cm/s, monophasic. Proximal anterior tibial artery: 95 cm/s, monophasic. Distal anterior tibial artery: 69 cm/s, monophasic. Proximal peroneal artery: 99 cinders per second, monophasic. Distal peroneal artery: 28 cm/s, monophasic. Dorsalis pedis artery: 53 cm/s, monophasic. IMPRESSION: 1. Patent bilateral lower exam he arteries with extensive atherosclerotic vascular disease. Predominantly monophasic waveforms bilaterally. 2. In the right leg, greatest stenosis is at the common femoral artery with estimated 50-74% based on peak systolic velocity criteria. 3. In the left leg, greatest stenosis is at the proximal SFA with estimated stenosis of 50-74% based on peak systolic velocity criteria. Electronically signed by: Marya Cintron M.D. 11/12/22 20:39 PM
[2022-11-12] MEDS ORDERED: LANTUS PER UNIT CHARGE SQ SCH (21:00)
[2022-11-12] MEDS ORDERED: INSULIN ASPART PER UNIT CHARGE SC SCH (21:00)
[2022-11-12] MEDS: NICOTINE 21 MG/24 HR TDSY TD SCH (21:40)
[2022-11-12] MEDS: HEPARIN SOD 5,000 UNIT/0.5 ML VIAL SQ SCH (21:44)
[2022-11-12] MEDS: ATORVASTATIN 40 MG TAB PO SCH (21:44)
[2022-11-12] MEDS: LANTUS PER UNIT CHARGE SQ SCH (21:45)
[2022-11-12] MEDS: METOPROLOL TARTRATE 50 MG TAB PO SCH (21:45)
[2022-11-12] MEDS: ISOSORBIDE MONO EXTENDED REL 30 MG TABCR PO SCH (21:45)
[2022-11-12] MEDS: ZOLPIDEM TARTRATE 5 MG TAB PO SCH (21:47)
[2022-11-12] MEDS: Patient's HEIGHT &/or WEIGHT Needed SCH ×3 (23:20→23:21)
[2022-11-13] MEDS: INSULIN ASPART PER UNIT CHARGE SC SCH ×3 (06:17→17:38)
[2022-11-13] MEDS: LEVOTHYROXINE SODIUM 125 MCG TABLET PO SCH (06:21)
[2022-11-13 07:05] LABS: Basophils # (auto) 0.02 K/uL (0-0.2); Basophils % (auto) 0.4 %; Eosinophils # (auto) 0.07 K/uL (0-0.50); Eosinophils % (auto) 1.3 %; Hematocrit (blood only) 27.3 % (37.0-47.0); Hemoglobin 9.1 g/dl (12.0-16.0); Immature Granulocytes # (auto) 0.01 K/uL (0.01-0.20); Immature Granulocytes % (auto) 0.2 %; Lymphocytes # (auto) 1.82 K/uL (1.2-3.4); Lymphocytes % (auto) 34.5 %; Mean Corpuscular Hemoglobin 32.4 pg (25.0-34.0); Mean Corpuscular Hgb Conc 33.3 g/dL (32.0-36.0); Mean Corpuscular Volume 97.2 fL (80.0-100.0); Mean Platelet Volume 10.4 fL (9.4-12.4); Monocytes # (auto) 0.41 K/uL (0.11-0.59); Monocytes % (auto) 7.8 %; Neutrophils # (auto) 2.94 K/uL (1.40-6.50); Neutrophils % (auto) 55.8 %; Platelet Count 231 K/uL (130-400); RDW Standard Deviation 57.4 fL (36.4-46.3); Red Blood Count 2.81 M/uL (4.20-5.40); White Blood Count 5.27 K/ul (4.8-10.8)
[2022-11-13 07:19] LABS: Estimated Average Glucose 114 mg/dl; Hemoglobin A1C 5.6 % (4.5-5.6)
[2022-11-13 07:21] LABS: Albumin Globulin Ratio 0.9 (0.9-2); Albumin Level 2.6 gm/dl (3.4-5.0); BUN Creatinine Ratio 4.8 (10-20); Bilirubin,Total 0.4 mg/dl (0.2-1.0); Calcium 8.6 mg/dl (8.6-10.3); Creatinine Clr Calc Pharmacy 15.1 ml/min; Est GFR (African American) 16.4 ml/min; Est GFR (Non-African American) 14.1 ml/min; Magnesium 1.9 mg/dl (1.7-2.4); Phosphorus 4.5 mg/dl (2.5-4.9); Potassium 3.9 mmol/L (3.5-5.1); Total Protein 5.6 gm/dl (6.0-8.3)
[2022-11-13 07:28] LABS: Prothrombin Time 11.4 Seconds (9.0-12.0)
[2022-11-13] MEDS: allopurinoL 100 MG TAB PO SCH (08:45)
[2022-11-13] MEDS: PANTOprazole 40 MG TAB PO SCH (08:45)
[2022-11-13] MEDS: amLODIPine BESYLATE 5 MG TAB PO SCH (08:45)
[2022-11-13] MEDS: CHOLECALCIFEROL 1,000 UNITS 25 MCG TAB PO SCH (08:45)
[2022-11-13] MEDS: cloNIDine HCL 0.1 MG TAB PO SCH (08:45)
[2022-11-13] MEDS: METOPROLOL TARTRATE 50 MG TAB PO SCH ×2 (08:45→20:29)
[2022-11-13] MEDS: FUROSEMIDE 40 MG TAB PO SCH (08:46)
[2022-11-13] MEDS: EZETIMIBE 10 MG TABLET PO SCH (08:46)
[2022-11-13] MEDS: lisinopril 40 MG TAB PO SCH (08:46)
[2022-11-13] MEDS: ASPIRIN 81 MG ECTAB PO SCH (08:46)
[2022-11-13] MEDS: NEPHROCAPS PO SCH (08:46)
[2022-11-13] MEDS: CLOPIDOGREL BISULFATE 75 MG TAB PO SCH (08:46)
[2022-11-13] MEDS: SEVELAMER HCL 800 MG TABLET PO SCH ×3 (08:47→17:20)
[2022-11-13] MEDS: NICOTINE 21 MG/24 HR TDSY TD SCH (08:47)
[2022-11-13] MEDS: LANTUS PER UNIT CHARGE SQ SCH (08:47)
[2022-11-13] MEDS ORDERED: ASPIRIN 81 MG CHEW PO SCH (09:00)
--- NOTE | 2022-11-13 09:56 | Hospitalist Progress Note ---
Date of Service November 13, 2022 Assessment & Plan (1) Osteomyelitis of left foot: Plan: Patient has received vancomycin with dialysis for the last 2 weeks. At this time we will hold further antibiotics until biopsy of the foot podiatry was consulted and patient was seen this morning by Dr. Dias. Anticipate surgical biopsy tomorrow in the OR increased pain. No effect with Tylenol. Will add Dilaudid 0.5 mg IV every 4 hours as needed. Patient previously had diagnosis of MRSA at wound care clinic [address] contact precaution isolation order in the system. (2) Ambulatory dysfunction: Plan: Multifactorial to chronic comorbid disease as well as amputation of toe and current probable osteomyelitis PT/OT evaluation and treatment We will see if patient requires inpatient rehab at time of discharge (3) DM II (diabetes mellitus, type II), controlled: Plan: Hemoglobin A1c 5.6% on 11/13/2022. This may be unreliable due to patient's chronic end-stage renal disease and hemodialysis Wednesdays and Fridays Basal insulin is currently on hold secondary to n.p.o. status for surgery Continue with sliding scale insulin We will follow [facility]'s ACHS (4) CAD (coronary artery disease): Plan: Continue amlodipine, clopidogrel, Imdur, lisinopril, metoprolol tartrate, and aspirin Patient denies any chest pain or tightness Continue diuresis with furosemide and follow strict ins and outs (5) ESRD (end stage renal disease) on dialysis: Plan: Hemodialysis Tuesday and Tuesday Nephrology is consulted. Appreciate their input (6) HTN (hypertension): Plan: Multi agent therapy at this time Hemodynamically stable Continue outpatient monitoring with cardiology (7) B12 deficiency: Plan: Continue repletion (8) Hypothyroidism: Plan: Continue levothyroxine 125 mcg daily Outpatient management (9) Tobacco abuse: Plan: Patient continues to smoke daily Discussed importance of abstention Patient denies urges for cigarettes at this time Nicotine patch offered and deferred (10) Hyperlipidemia: Plan: Continue ezetimibe Plan Patient is For biopsy of toe tomorrow with Dr. Dias. This will be performed in the operating theater. Continue antibiotic therapy and monitoring until that time and then reevaluate Admission and Anticipated Discharge Date Admission Date: November 12, 2022 Subjective Attending: Dr. Rios This is a 62-year-old female with past medical history significant for ESRD on hemodialysis Tuesday and Tuesday with Dr. Brink, diabetes mellitus type 2, hyperlipidemia, CAD, status post PCI and WILLIAM placement x212 months ago, hypothyroidism, insomnia, left foot infection with osteomyelitis, status post left fifth toe amputation, ambulatory dysfunction, multiple falls at home, gout, tobacco abuse. Patient has osteomyelitis of the left foot. She has been receiving vancomycin on dialysis for 2 weeks. Currently further antibiotics are being hold pending podiatry consult with bone biopsy. Patient was made n.p.o. at midnight in the event that biopsy needs to be done in the OR. Patient complaining of foot pain today. Tylenol with no effect. Requesting escalation of analgesia. Patient denies any fever, chills, sweats, rigors. No nausea or vomiting. Aside from foot pain at site of infection, no lower extremity pain. Patient has no other acute complaints. Patient is currently refusing NicoDerm patch as she states that she has no desire for tobacco. She is aware that the nicotine patch is available should she decide she needs. Review of Systems Review of Systems: A total of 10 systems was reviewed and is negative other than as listed in the HPI Physical Exam Physical Exam: GENERAL : No acute distress EYES: No icterus, gaze conjugate NOSE: No evidence of epistaxis MOUTH: No lesions or candidiasis NECK: Supple LUNGS: CTA B/L, no wheezes, rales or rhonchi HEART: Regular, rate controlled ABDOMEN: Soft, NT, ND, BS Present EXTREMITIES: No LE edema, pedal pulses intact NEURO: A&OX3 Results & Data Results & Data Vital Signs (Past 12 Hours) Vital Signs Temp Pulse Resp BP Pulse Ox O2 Del Method 11/13/22 07:30 36.7 C 63 18 149/69 H 97 Room Air 11/13/22 08:00 Room Air Critical Care Results & Data Vital Signs (Past 12 Hours) Vital Signs Temp Pulse Resp BP Pulse Ox O2 Del Method 11/13/22 07:30 36.7 C 63 18 149/69 H 97 Room Air 11/13/22 08:00 Room Air Lab & Micro Results (Past 24 Hours) RBC 2.81 M/uL (4.20-5.40) L 11/13/22 WBC 5.27 K/ul (4.8-10.8) 11/13/22 Hgb 9.1 g/dl (12.0-16.0) L 11/13/22 Hct 27.3 % (37.0-47.0) L 11/13/22 MCV 97.2 fL (80.0-100.0) 11/13/22 MCH 32.4 pg (25.0-34.0) 11/13/22 MCHC 33.3 g/dL (32.0-36.0) 11/13/22 RDW Standard Deviation 57.4 fL (36.4-46.3) H 11/13/22 RDW Coefficient of Variation 16.0 % (11.5-14.5) H 11/13/22 Plt Count 231 K/uL (130-400) 11/13/22 MPV 10.4 fL (9.4-12.4) 11/13/22 Neutrophils (%) (Auto) 55.8 % 11/13/22 Lymphocytes (%) (Auto) 34.5 % 11/13/22 Monocytes # (Auto) 0.41 K/uL (0.11-0.59) 11/13/22 Eosinophils # (Auto) 0.07 K/uL (0-0.50) 11/13/22 Immature Granulocyte % (Auto) 0.2 % 11/13/22 Neutrophils # (Auto) 2.94 K/uL (1.40-6.50) 11/13/22 Lymphocytes # (Auto) 1.82 K/uL (1.2-3.4) 11/13/22 Monocytes # (Auto) 0.41 K/uL (0.11-0.59) 11/13/22 Eosinophils # (Auto) 0.07 K/uL (0-0.50) 11/13/22 Basophils # (Auto) 0.02 K/uL (0-0.2) 11/13/22 Immature Granulocyte # (Auto) 0.01 K/uL (0.01-0.20) 3 Na 138 mmol/L (136-145) 11/13/22 K 3.9 mmol/L (3.5-5.1) 11/13/22 Cl 97 mmol/L (98-107) L 11/13/22 CO2 35 mmol/L (21-32) H 11/13/22 Anion Gap 6 (3-11) 11/13/22 BUN 16 mg/dl (6-23) 11/13/22 Creatinine 3.34 mg/dl (0.6-1.2) H 11/13/22 Estimated GFR ( Amer) 16.4 ml/min 11/13/22 Estimated GFR (Non-Af Amer) 14.1 ml/min 11/13/22 BUN/Creatinine Ratio 4.8 (10-20) L 11/13/22 Glu 94 mg/dl (70-99(Fasting)) 11/13/22 Ca 8.6 mg/dl (8.6-10.3) 11/13/22 Phosphorus Level 4.5 mg/dl (2.5-4.9) 11/13/22 Total Bilirubin 0.4 mg/dl (0.2-1.0) 11/13/22 AST 30 U/L (13-39) 11/13/22 ALT 22 U/L (7-52) 11/13/22 Alkaline Phosphatase 97 U/L (34-104) 11/13/22 TP 5.6 gm/dl (6.0-8.3) L 11/13/22 Albumin 2.6 gm/dl (3.4-5.0) L 11/13/22 Globulin 3.0 gm/dl (2.5-4.0) 11/13/22 Albumin/Globulin Ratio 0.9 (0.9-2) 11/13/22 Mg 1.9 mg/dl (1.7-2.4) 11/13/22 06:12 Calcium Level 8.6 mg/dl (8.6-10.3) 11/13/22 06:12 Prothromb Time International Ratio 1.0 (0.9-1.1) 11/13/22 06:1 2 Microbiology 11/12/22 14:45 Gram Stain - Final Foot,Left Diagnostic Findings (Past 24 Hours) Chest X-Ray 11/12/22 14:26 XR chest 1V portable CLINICAL HISTORY: weakness TECHNIQUE: Single frontal radiograph of the chest was obtained. Comparison: None available at the time of this dictation. FINDINGS: No recorded versus previous pacemaker is seen. Calcified aortic knob is seen. The lungs are clear. No evidence of pleural effusion or pneumothorax. IMPRESSION: No acute chest disease. ACT 112: Negative or not required by law. Electronically signed by: Richard Chirinos M.D. 11/12/2022 3:[address] 11/12/22 14:42 CT SCAN OF THE LEFT FOOT WITHOUT IV CONTRAST CLINICAL HISTORY: Foot infection. COMPARISON STUDY: No priors. TECHNIQUE: CT scan of the left foot is performed from the ankle to the base of the foot. Images are reviewed in the axial, sagittal, and coronal planes. IV contrast was not administered for this examination. A dose lowering technique was utilized adhering to the principles of ALARA. Note that interpretation is significantly suboptimal without plain film correlate. CT DOSE: 291.20 mGy.cm FINDINGS: The skeletal structures are heterogeneously osteopenic. No acute fracture is seen. The ankle mortise is intact. The first distal phalanx is not identified and presumed surgically absent. A soft tissue ulceration is suggested overlying the fifth metatarsal. There is erosive/destructive change involving the fifth proximal phalanx, likely representing osteomyelitis. The fifth middle and distal phalanges are not visualized. There is significant inflammation with soft tissue gas and fluid seen overlying the distal fifth metatarsal. No organized/drainable fluid collection is identified to suggest abscess on this unenhanced examination. No additional foci of bony erosion are seen. Mild arthritic changes are seen throughout the foot. There are small dorsal and plantar calcaneal enthesophytes. The Achilles tendon is intact as visualized. Moderate soft tissue edema is seen throughout the remainder of the foot and ankle. Atherosclerotic calcification is observed in the regional arteries. IMPRESSION: 1. A soft tissue ulceration is suggested overlying the fifth metatarsal head with evidence of surrounding cellulitis. No organized/drainable fluid collection is seen on this unenhanced examination. 2. Erosive/destructive changes are present within the base of the fifth proximal phalanx. This likely represents osteomyelitis. Correlate clinically. 3. The fifth middle and distal phalanges and the first distal phalanx are not identified and may be surgically absent. Correlate clinically. 4. No additional foci of destructive bony change are are seen throughout the remainder of the foot. No fracture is identified. ACT 112: Negative or not required by law. Dictated: 11/12/2022 4:31 PM Transcribed: 11/12/2022 4:55 PM Néstor [id number] [email or web address] Electronically signed by: Frank Jones M.D. 11/12/2022 5:17 PM Duplex Scan Lower Extremity Artery 11/12/22 17:40 Exam(s): US ARTERIAL BILATERAL LOWER EXTREMITIES EXAM: US Duplex Bilateral Lower Extremities Arteries CLINICAL HISTORY: Reason for exam: diabetic ulcers. TECHNIQUE: Real-time duplex ultrasound scan of the bilateral lower extremity arteries integrating B-mode two-dimensional vascular structure, Doppler spectral analysis and color flow Doppler imaging. COMPARISON: No relevant prior studies available. FINDINGS: There is extensive atherosclerotic vascular disease in the right lower extremity arteries without arterial occlusion in either leg. RIGHT LOWER EXTREMITY Common femoral artery: 217 cm/s, triphasic. Deep femoral artery: 65 cm/s, biphasic. Proximal SFA: 127 cm/s, triphasic. Mid SFA: 137 cm/s, biphasic. Distal SFA: 85 cm/s, monophasic. Proximal popliteal artery: 72 cm/s, monophasic. Distal popliteal artery: 93 cm/s, monophasic. Proximal posterior tibial artery: 92 cm/s, monophasic. Distal posterior tibial artery: 119 cinders per second, monophasic. Proximal anterior tibial artery: 43 cm/s, monophasic. Distal anterior tibial artery: 6 cm/s, monophasic. Proximal peroneal artery: 128 cm/s, monophasic. Distal peroneal artery: 74 cm/s, monophasic. Dorsalis pedis artery: 41 cm/s, monophasic. LEFT LOWER EXTREMITY Common femoral artery: 185 cm/s, triphasic. Deep femoral artery: 137 cm/s, monophasic. Proximal SFA: 295 cm/s, monophasic. Mid SFA: 160 cm/s, monophasic. Distal SFA: 103 cm/s, monophasic. Proximal popliteal artery: 186 cm/s, monophasic. Proximal posterior tibial artery: 79 cm/s, monophasic. Distal posterior tibial artery: 31 cm/s, monophasic. Proximal anterior tibial artery: 95 cm/s, monophasic. Distal anterior tibial artery: 69 cm/s, monophasic. Proximal peroneal artery: 99 cinders per second, monophasic. Distal peroneal artery: 28 cm/s, monophasic. Dorsalis pedis artery: 53 cm/s, monophasic. IMPRESSION: 1. Patent bilateral lower exam he arteries with extensive atherosclerotic vascular disease. Predominantly monophasic waveforms bilaterally. 2. In the right leg, greatest stenosis is at the common femoral artery with estimated 50-74% based on peak systolic velocity criteria. 3. In the left leg, greatest stenosis is at the proximal SFA with estimated stenosis of 50-74% based on peak systolic velocity criteria. Electronically signed by: Marya Cintron M.D. 11/12/22 20:39 PM I & O Totals 24 Hours 11/12/22 11/13/22 11/14/22 06:59 06:59 06:59 Intake Total 200 / 200 Output Total 150 / 150 Balance 200 / 200 -150 / -150 Cumulative 11/12/22 14:11 thru 11/13/22 07:45 Intake Total 200 Output Total 150 Balance 50 RT Ventilator Mngmt (Last Documented) Ventilator Ordered Settings Respiratory Rate 18 11/13/22 07:30 Ventilator - PT Measurements Respiratory Rate 18 PG Care Time/CCT Total # of Minutes Spent Total Time Spent with Patient: Total time spent is greater than 50% in coordination of care (as documented) at patient's floor/unit and/or counseling patient:35 Coding Level of Care Code 60463 SUB INP/OBS CARE 2/35MIN Diagnoses Osteomyelitis of left foot M86.9 Ambulatory dysfunction R26.2 DM II (diabetes mellitus, type II), controlled E11.9 CAD (coronary artery disease) I25.10 ESRD (end stage renal disease) on dialysis N18.6; Z99.2 HTN (hypertension) I10 B12 deficiency E53.8 Hypothyroidism E03.9 Tobacco abuse Z72.0 Hyperlipidemia E78.5 Time Spent (min) 35
[2022-11-13] MEDS: HYDROmorphone INJ 0.5 MG/0.5 ML SYR IV PRN ×3 (11:16→20:28)
--- NOTE | 2022-11-13 11:28 | Nephrology Consultation ---
Date of Consultation November 13, 2022 Assessment & Plan (1) ESRD (end stage renal disease) on dialysis: (2) HTN (hypertension): (3) Anemia: (4) Weakness: (5) Acute pain of left foot: (6) Osteomyelitis: Plan 62-year-old female with end-stage renal disease, on hemodialysis secondary to diabetic nephropathy, chronic diabetic foot ulcer status post amputation and surgical site infection now admitted with generalized weakness and concern for osteomyelitis with failed outpatient antibiotic after receiving vancomycin for 2 weeks. Waiting on bone biopsy tomorrow to make decision regarding antibiotic management. Overall clinically otherwise stable. Electrolyte, volume status acceptable. BP fair. --Monitor over the weekend and tentatively plan to keep on her regular dialysis treatment on Tuesday for 3 hours. --Right arm nephrology precaution for AV fistula, dose medications for EGFR less than 10 --AUGIE with HD on 11/15/22 --continue Nephrocaps and Renvela Will follow. Thank you for allowing me to participate in your patient's care. It was a pleasure to see Jacqui. History of Present Illness Reason for Consultation: End-stage renal disease, on hemodialysis, admitted with generalized weakness and left foot osteomyelitis. Attending Physician: Del Rios History of Present Illness Ms Jacqui Hudson is a 62 year old female with PMH significant for ESRD on HD MWF , DM II, HLD, CAD S/P PCI and WILLIAM placement x 2 approximately 1 year ago, Hypothyroidism, insomnia, and current left foot infection, admitted to the hospital with generalized weakness and pain in left foot with osteomyelitis despite getting outpatient antibiotic. Nephrology consult requested for management of hemodialysis while inpatient. EMR records are reviewed in detail during patient's visit. Jacqui has history of diabetic foot ulcer since February of last year and had left 5th toe amputation approximately 2 months ago at [facility]. Since then she has been having infection at the amputation site. [facility] cultures [facility] in [place] from 10/19/22 grew Staph Pseudintermedius and Enterococcus faecalis both sensitive to vancomycin. She had been receiving Vancomycin after dialysis, had her last dose of vancomycin yesterday after dialysis. She was then referred to ER as she continues to have significant pain in her left foot and was too weak for her family to care for her. Over the past 3-4 months she has had multiple mechanical falls at home due to ambulatory dysfunction from her left foot infection. Labs were significant for a leukopenia of 4.17, Cr of 2.69 with stable electrolytes. Chest xray was negative for acute findings. CT of the left foot without IV contrast showed soft tissue ulceration overlying the fifth metatarsal head with evidence of surrounding cellulitis, Erosive/destructive changes within the base of the fifth proximal phalanx, likely represents osteomyelitis. She is currently off of antibiotic pending bone culture by Podiatry tomorrow. Jacqui has end-stage renal disease secondary to diabetic nephropathy, has been on dialysis for last almost 3 years via right brachiocephalic AV fistula, at [facility] under care of Dr. Mckeon. She had full dialysis treatment yesterday. She usually gets 3 hours dialysis. She still voids. current active smoker, smokes about 5 cigarettes a day for 50 years. Lives at home with her and grown-up son and grand children. Continues to have significant pain in her left foot and overall feels weak and tired. Denies any shortness of breath Chest pain. Allergies Allergy/AdvReac Type Severity Reaction Status Date / Time morphine Allergy Severe Hallucinati Unverified 11/12/22 19:08 ng codeine Allergy Intermediate Redness of Unverified 11/12/22 19:08 Skin prednisone Allergy Intermediate Itching Unverified 11/12/22 19:08 Home Medications Medication Instructions Recorded Confirmed Type albuterol sulfate 90 mcg/actuation 1 puff inhalation QID PRN bad cough 11/12/22 11/12/22 History aerosol inhaler allopurinol 100 mg tablet 100 mg PO DAILY 11/12/22 11/12/22 History amitriptyline 100 mg tablet 100 mg PO HS 11/12/22 11/12/22 History amlodipine 2.5 mg tablet 2.5 mg PO DAILY 11/12/22 11/12/22 History ascorbic acid (vitamin C) 500 mg 500 mg PO DAILY 11/12/22 11/12/22 History capsule aspirin 81 mg chewable tablet 81 mg PO DAILY 11/12/22 11/12/22 History atorvastatin 40 mg tablet (Lipitor) 40 mg PO HS 11/12/22 11/12/22 History cholecalciferol (vitamin D3) 50 50 mcg PO DAILY 11/12/22 11/12/22 History mcg (2,000 unit) tablet clonidine HCl 0.1 mg tablet 0.1 mg PO DAILY 11/12/22 11/12/22 History clopidogrel 75 mg tablet 75 mg PO DAILY 11/12/22 11/12/22 History denosumab 60 mg/mL subcutaneous 60 mg subcut Q6M 11/12/22 11/12/22 History syringe (Prolia) docusate sodium 100 mg capsule 100 mg PO DAILY 11/12/22 11/12/22 History (Colace) esomeprazole magnesium 40 mg 40 mg PO DAILY 11/12/22 11/12/22 History capsule,delayed release (Nexium) ezetimibe 10 mg tablet 10 mg PO DAILY 11/12/22 11/12/22 History furosemide 40 mg tablet (Lasix) 40 mg PO DAILY 11/12/22 11/12/22 History gentamicin 0.1 % topical ointment 1 applic topical DAILY foot wound 11/12/22 11/12/22 History insulin lispro 100 unit/mL 0 - 10 sliding scale dose subcut 11/12/22 11/12/22 History subcutaneous pen (Humalog Tempo QID Pen (U-100) Insulin) isosorbide mononitrate 30 mg 30 mg PO HS 11/12/22 11/12/22 History tablet,extended release 24 hr latanoprost 0.005 % eye drops 1 drp ophthalmic (eye) HS 11/12/22 11/12/22 History levothyroxine 125 mcg tablet 125 mcg PO QAM 11/12/22 11/12/22 History lisinopril 40 mg tablet (Zestril) 40 mg PO DAILY 11/12/22 11/12/22 History loratadine 10 mg tablet 10 mg PO DAILY 11/12/22 11/12/22 History melatonin 10 mg capsule 10 mg PO HS 11/12/22 11/12/22 History meloxicam 15 mg tablet 15 mg PO DAILY 11/12/22 11/12/22 History metoprolol tartrate 50 mg tablet See Rx Instructions .Route .COMPLEX 11/12/22 11/12/22 History nitroglycerin 0.4 mg sublingual See Rx Instructions .Route .COMPLEX 11/12/22 11/12/22 History tablet sevelamer carbonate 800 mg tablet 0 mg PO TID 11/12/22 11/12/22 History vit B,C-folic ac 800 mcg-zinc 12.5 1 tab PO DAILY 11/12/22 11/12/22 History mg-selen-D3 2,000 unit-vit E tablet (RenaPlex-D) zolpidem 5 mg tablet (Ambien) 5 mg PO DAILY 11/12/22 11/12/22 History Patient History Medical History (Updated 11/13/22 @ 09:58 by JARED CheemaC) Anemia CHF (congestive heart failure) ESRD (end stage renal disease) on dialysis HD --. Follows with Dr. Mckeon HTN (hypertension) Social History Smoking Status: Current every day smoker Cigarettes Per Day: 6; Second Hand Exposure: No; Do You Dip or Chew Tobacco: No; Tobacco Cessation Education Requested by Patient: No Hx Alcohol Use: No Hx Substance Use: No Preferred Language: Tamazight Communication Ability: Effective Principal Administrative Clerk Required: No Beliefs That Will Affect Care: None Current Living Situation: Spouse and Family Other Information That Helps Us Care for You: No Feels Safe at Home: Yes Safety Concerns: Feels Safe At This Time Assistive Devices: Denture - Upper, Denture - Lower, Walker and Wheelchair Review of Systems Review of Systems: detailed review of system was done and pertinent positives and negatives are mentioned above. Physical Exam Constitutional: WD/WN, vitals as above no acute distress Eyes: + anicteric sclerae Neck: normal visual inspection Respiratory: no respiratory distress Auscultation: lungs clear to auscultation bilaterally Cardiovascular: Rate/Rhythm: regular rate and regular rhythm Heart Sounds: normal S1 and normal S2 Extremities: + AV fistula (RT BC AVF with thrill and bruit.); no edema Gastrointestinal (Abdomen): Inspection/Auscultation: abdomen normal to inspection Percussion/Palpation: abdomen soft; abdomen nontender Musculoskeletal: left foot ulcer in dressing. Skin: no rashes, warm and dry Neurologic: no focal motor deficits Psychiatric: Orientation: alert and oriented x 3 Affect: euthymic affect Results & Data Vital Signs (Past 12 Hours) Vital Signs Temp Pulse Resp BP Pulse Ox O2 Del Method 11/13/22 07:30 36.7 C 63 18 149/69 H 97 Room Air 11/13/22 08:00 Room Air PG Care Time/CCT Total # of Minutes Spent Total Time Spent with Patient: Total time spent is greater than 50% in coordination of care (as documented) at patient's floor/unit and/or counseling patient: Coding Level of Care Code 72684 INT INP/OBS CARE MIN Diagnoses ESRD (end stage renal disease) on dialysis N18.6; Z99.2 HTN (hypertension) I10 Anemia D64.9 Weakness R53.1 Acute pain of left foot M79.672 Osteomyelitis M86.9 Laterality: left Osteomyelitis location: foot Osteomyelitis type: unspecified type (6) Osteomyelitis Laterality: left Osteomyelitis location: foot Osteomyelitis type: unspecified type Qualified Code(s): M86.9 - Osteomyelitis, unspecified
--- NOTE | 2022-11-13 14:45 | Pharmacy Report ---
Pharmacy Glycemic Short Note 2 - Date of Service November 13, 2022 - Glycemic Short BSG Results (Last 24 hours): 11/12/22 11/12/22 11/12/22 15:26 16:08 20:05 Glucose 118 H POC Glucose 93 105 H 11/13/22 11/13/22 11/13/22 05:54 06:12 12:28 Glucose 94 POC Glucose 117 H 111 H OUTPATIENT ANTIDIABETIC REGIMEN: * Toujeo 27 units SQ daily * Humalog SS QID * Trulicity ASSESSMENT: * 62 y/o F 83 y/o M admitted for chronic diabetic foot infection and possible osteomyelitis. Patient was recently on IV Vancomycin and potential failed therapy. Also with history of ESRD and chronic Hemodialysis. * Although patient is prescribed above home meds, per med rec notes, she was only taking Humalog insulin prior to admission. * Patient's A1c = 5.6% today. * However, this result is likely somewhat unreliable in ESRD patients d/t interactions between the A1c analyzing technique and high levels of urea in ESRD, reduced RBC life span, iron deficiency anemia, and EPO administration. * Pharmacy consulted last night and patient was ordered Novolog (based on stress of 2) and Lantus but her BSGs have been stable and controlled since admission. So she has not received any insulin so far. * Basal insulin is currently discontinued. Will re-assess and order this if BSG trends up. * Fasting BSG was 110 mg/dl today. Continued Novolog with same parameters. Pre- lunch BSG = 111 mg/dl. * Patient is also currently NPO for bone biopsy tomorrow. PLAN FOR INPATIENT GLYCEMIC CONTROL: * Hold outpatient diabetes medications * Basal insulin * on hold * Bolus insulin * NovoLog per scale ACHS or Q6hrs while NPO * Goal Range: Low 110 mg/dL - High 140 mg/dL * Correction Factor: 40 mg/dL/unit * Nutritional / Prandial insulin per carb ratio of 1 unit per 13 grams CHO consumed
[2022-11-13] MEDS: HEPARIN SOD 5,000 UNIT/0.5 ML VIAL SQ SCH (20:28)
[2022-11-13] MEDS: ISOSORBIDE MONO EXTENDED REL 30 MG TABCR PO SCH (20:30)
[2022-11-13] MEDS: ATORVASTATIN 40 MG TAB PO SCH (20:30)
[2022-11-13] MEDS: ZOLPIDEM TARTRATE 5 MG TAB PO SCH (20:32)
--- NOTE | 2022-11-13 21:58 | Orthopedic Consultation ---
Date of Consultation November 13, 2022 Assessment & Plan (1) Osteomyelitis of left foot: Patient seen, evaluated, and treated Reviewed CT with (+) OM and Arterial US with (+) PAD Patient scheduled for resection of osteomyelitic bone, excision of wound 7:30 11/14/22. Appreciate vascular referral for possible intervention as needed. Thank you for allowing me to participate in the care of this patient. History of Present Illness Attending Physician: Del Rios History of Present Illness Patient is a type II diabetic, 62 year old female seen at bedside for left diabetic foot ulcer. Patient has a past medical history significant for ESRD on HD MWF (Follows with Dr. Mckeon), DM II, HLD, CAD S/P PCI and WILLIAM placement x 2 approximately 1 year ago, Hypothyroidism, insomnia, and current left foot infection, currently receiving outpatient vancomycin. Patient presented to [facility] ED today treatment of her osteomyelitis and rehab placement. Patient is status post 2 months partial fifth toe amputation at [facility] now with open amputation site wound. CT of the left foot without IV con was read as "1. A soft tissue ulceration is suggested overlying the fifth metatarsal head with evidence of surrounding cellulitis. No organized/drainable fluid collection is seen on this unenhanced examination. 2. Erosive/destructive change. [facility] [place] from 10/19/22 grew Staph Pseudintermedius and Enterococcus faecalis both sensitive to vancomycin. She had been receiving Vancomycin in coordination with her dialysis appointments. Patient came to the ED today because she is too weak for she and her family to care for her at this time. Over the past 3-4 months she has had multiple mechanical falls at home due to ambulatory dysfunction from her left foot infection. Allergies Allergy/AdvReac Type Severity Reaction Status Date / Time morphine Allergy Severe Hallucinati Unverified 11/12/22 19:08 ng codeine Allergy Intermediate Redness of Unverified 11/12/22 19:08 Skin prednisone Allergy Intermediate Itching Unverified 11/12/22 19:08 Home Medications Medication Instructions Recorded Confirmed Type albuterol sulfate 90 mcg/actuation 1 puff inhalation QID PRN bad cough 11/12/22 11/12/22 History aerosol inhaler allopurinol 100 mg tablet 100 mg PO DAILY 11/12/22 11/12/22 History amitriptyline 100 mg tablet 100 mg PO HS 11/12/22 11/12/22 History amlodipine 2.5 mg tablet 2.5 mg PO DAILY 11/12/22 11/12/22 History ascorbic acid (vitamin C) 500 mg 500 mg PO DAILY 11/12/22 11/12/22 History capsule aspirin 81 mg chewable tablet 81 mg PO DAILY 11/12/22 11/12/22 History atorvastatin 40 mg tablet (Lipitor) 40 mg PO HS 11/12/22 11/12/22 History cholecalciferol (vitamin D3) 50 50 mcg PO DAILY 11/12/22 11/12/22 History mcg (2,000 unit) tablet clonidine HCl 0.1 mg tablet 0.1 mg PO DAILY 11/12/22 11/12/22 History clopidogrel 75 mg tablet 75 mg PO DAILY 11/12/22 11/12/22 History denosumab 60 mg/mL subcutaneous 60 mg subcut Q6M 11/12/22 11/12/22 History syringe (Prolia) docusate sodium 100 mg capsule 100 mg PO DAILY 11/12/22 11/12/22 History (Colace) esomeprazole magnesium 40 mg 40 mg PO DAILY 11/12/22 11/12/22 History capsule,delayed release (Nexium) ezetimibe 10 mg tablet 10 mg PO DAILY 11/12/22 11/12/22 History furosemide 40 mg tablet (Lasix) 40 mg PO DAILY 11/12/22 11/12/22 History gentamicin 0.1 % topical ointment 1 applic topical DAILY foot wound 11/12/22 11/12/22 History insulin lispro 100 unit/mL 0 - 10 sliding scale dose subcut 11/12/22 11/12/22 History subcutaneous pen (Humalog Tempo QID Pen (U-100) Insulin) isosorbide mononitrate 30 mg 30 mg PO HS 11/12/22 11/12/22 History tablet,extended release 24 hr latanoprost 0.005 % eye drops 1 drp ophthalmic (eye) HS 11/12/22 11/12/22 History levothyroxine 125 mcg tablet 125 mcg PO QAM 11/12/22 11/12/22 History lisinopril 40 mg tablet (Zestril) 40 mg PO DAILY 11/12/22 11/12/22 History loratadine 10 mg tablet 10 mg PO DAILY 11/12/22 11/12/22 History melatonin 10 mg capsule 10 mg PO HS 11/12/22 11/12/22 History meloxicam 15 mg tablet 15 mg PO DAILY 11/12/22 11/12/22 History metoprolol tartrate 50 mg tablet See Rx Instructions .Route .COMPLEX 11/12/22 11/12/22 History nitroglycerin 0.4 mg sublingual See Rx Instructions .Route .COMPLEX 11/12/22 11/12/22 History tablet sevelamer carbonate 800 mg tablet 0 mg PO TID 11/12/22 11/12/22 History vit B,C-folic ac 800 mcg-zinc 12.5 1 tab PO DAILY 11/12/22 11/12/22 History mg-selen-D3 2,000 unit-vit E tablet (RenaPlex-D) zolpidem 5 mg tablet (Ambien) 5 mg PO DAILY 11/12/22 11/12/22 History Patient History Medical History (Updated 11/13/22 @ 09:58 by Frank Leon PA-C) Anemia CHF (congestive heart failure) ESRD (end stage renal disease) on dialysis HD . Follows with Dr. Mckeon HTN (hypertension) Social History Smoking Status: Current every day smoker Cigarettes Per Day: 6; Second Hand Exposure: No; Do You Dip or Chew Tobacco: No; Tobacco Cessation Education Requested by Patient: No Hx Alcohol Use: No Hx Substance Use: No Preferred Language: Latvian Communication Ability: Effective Fourdrinier Tender Required: No Beliefs That Will Affect Care: None Current Living Situation: Spouse and Family Other Information That Helps Us Care for You: No Feels Safe at Home: Yes Safety Concerns: Feels Safe At This Time Assistive Devices: Denture - Upper, Denture - Lower, Walker and Wheelchair Review of Systems Review of Systems: All systems reviewed & are unremarkable except as noted in HPI & below Physical Exam Physical Exam: Constitutional: cooperative and comfortable Eyes: normal visual todd by confrontation Neck: normal visual inspection and trachea midline Respiratory: normal respiratory effort Cardiovascular: Rate/Rhythm: regular rate and regular rhythm Musculoskeletal: Extremities: + amputation noted (Left fifth toe) Skin: + ulcer (purulent drainage and minimal surrounding erythema) Neurologic: moves all extremities (Decreased epicritic sensation) Psychiatric: Orientation: alert and oriented x 3 Results & Data Vital Signs (Past 12 Hours) Vital Signs Temp Pulse Resp BP Pulse Ox O2 Del Method 11/13/22 15:00 36.8 C 79 18 163/63 H 97 Room Air Diagnostic Findings [place], [place] [phone] Ultrasound Report Patient:KENYETTA SUMMERS Admit Date:11/12/22 MR#:[id number] Address1:[address] [facility] Acct ID:[id number] Address2: Date:1960 [facility] Zip:[place] [address] Age:62 Location:3N Sex:F Room/Bed:[facility] Att Phy:Albaro Franks MD Diagnosis:LEFT FOOT WOUND, NEED FOR PLACEMENT Юлия Phy:Christina Alcantar PA-C Service Date:11/12/22 Fam Phy: Interpreting Phy:Marya Cintron MDAdmit Phy:Albaro Franks MD Ordering Phy:Albaro Franks MD cc: ~ Exam(s): US ARTERIAL BILATERAL LOWER EXTREMITIES EXAM: US Duplex Bilateral Lower Extremities Arteries CLINICAL HISTORY: Reason for exam: diabetic ulcers. TECHNIQUE: Real-time duplex ultrasound scan of the bilateral lower extremity arteries integrating B-mode two-dimensional vascular structure, Doppler spectral analysis and color flow Doppler imaging. COMPARISON: No relevant prior studies available. FINDINGS: There is extensive atherosclerotic vascular disease in the right lower extremity arteries without arterial occlusion in either leg. RIGHT LOWER EXTREMITY Common femoral artery: 217 cm/s, triphasic. Deep femoral artery: 65 cm/s, biphasic. Proximal SFA: 127 cm/s, triphasic. Mid SFA: 137 cm/s, biphasic. Distal SFA: 85 cm/s, monophasic. Proximal popliteal artery: 72 cm/s, monophasic. Distal popliteal artery: 93 cm/s, monophasic. Proximal posterior tibial artery: 92 cm/s, monophasic. Distal posterior tibial artery: 119 cinders per second, monophasic. Proximal anterior tibial artery: 43 cm/s, monophasic. Distal anterior tibial artery: 6 cm/s, monophasic. Proximal peroneal artery: 128 cm/s, monophasic. Distal peroneal artery: 74 cm/s, monophasic. Dorsalis pedis artery: 41 cm/s, monophasic. LEFT LOWER EXTREMITY Common femoral artery: 185 cm/s, triphasic. Deep femoral artery: 137 cm/s, monophasic. Proximal SFA: 295 cm/s, monophasic. Mid SFA: 160 cm/s, monophasic. Distal SFA: 103 cm/s, monophasic. Proximal popliteal artery: 186 cm/s, monophasic. Proximal posterior tibial artery: 79 cm/s, monophasic. Distal posterior tibial artery: 31 cm/s, monophasic. Proximal anterior tibial artery: 95 cm/s, monophasic. Distal anterior tibial artery: 69 cm/s, monophasic. Proximal peroneal artery: 99 cinders per second, monophasic. Distal peroneal artery: 28 cm/s, monophasic. Dorsalis pedis artery: 53 cm/s, monophasic. IMPRESSION: 1. Patent bilateral lower exam he arteries with extensive atherosclerotic vascular disease. Predominantly monophasic waveforms bilaterally. 2. In the right leg, greatest stenosis is at the common femoral artery with estimated 50-74% based on peak systolic velocity criteria. 3. In the left leg, greatest stenosis is at the proximal SFA with estimated stenosis of 50-74% based on peak systolic velocity criteria. CT SCAN OF THE LEFT FOOT WITHOUT IV CONTRAST CLINICAL HISTORY: Foot infection. COMPARISON STUDY: No priors. TECHNIQUE: CT scan of the left foot is performed from the ankle to the base of the foot. Images are reviewed in the axial, sagittal, and coronal planes. IV contrast was not administered for this examination. A dose lowering technique was utilized adhering to the principles of ALARA. Note that interpretation is significantly suboptimal without plain film correlate. CT DOSE: 291.20 mGy.cm FINDINGS: The skeletal structures are heterogeneously osteopenic. No acute fracture is seen. The ankle mortise is intact. The first distal phalanx is not identified and presumed surgically absent. A soft tissue ulceration is suggested overlying the fifth metatarsal. There is erosive/destructive change involving the fifth proximal phalanx, likely representing osteomyelitis. The fifth middle and distal phalanges are not visualized. There is significant inflammation with soft tissue gas and fluid seen overlying the distal fifth metatarsal. No organized/drainable fluid collection is identified to suggest abscess on this unenhanced examination. No additional foci of bony erosion are seen. Mild arthritic changes are seen throughout the foot. There are small dorsal and plantar calcaneal enthesophytes. The Achilles tendon is intact as visualized. Moderate soft tissue edema is seen throughout the remainder of the foot and ankle. Atherosclerotic calcification is observed in the regional arteries. IMPRESSION: 1. A soft tissue ulceration is suggested overlying the fifth metatarsal head with evidence of surrounding cellulitis. No organized/drainable fluid collection is seen on this unenhanced examination. 2. Erosive/destructive changes are present within the base of the fifth proximal phalanx. This likely represents osteomyelitis. Correlate clinically. 3. The fifth middle and distal phalanges and the first distal phalanx are not identified and may be surgically absent. Correlate clinically. 4. No additional foci of destructive bony change are are seen throughout the remainder of the foot. No fracture is identified.
[2022-11-14] MEDS: INSULIN ASPART PER UNIT CHARGE SC SCH ×5 (01:11→21:16)
[2022-11-14] MEDS: HYDROmorphone INJ 0.5 MG/0.5 ML SYR IV PRN ×4 (03:39→21:39)
[2022-11-14] MEDS: LEVOTHYROXINE SODIUM 125 MCG TABLET PO SCH (05:45)
--- NOTE | 2022-11-14 07:33 | Anesthesiology Consultation ---
Date of Service November 14, 2022 Assessment & Plan Chart Review Chart Review: Acceptable Risk for Surgery and Patient NOT seen in Pre Admission Testing Consults Requested none ASA ASA4 Proposed Anesthesia Anesthesia Type: MAC Risk / Benefits Reviewed With: PT / POA / Parent / Guardian, Accepts Plan and Informed Consent Obtained History Surgery Operation Date: 11/14/22 07:30 Proposed Procedures p left 5th ray amputation(Left) - Yong Dias, DPM, MS Height/Weight Height: 5 ft 2 in Weight: 61.5 kg Allergies Allergy/AdvReac Type Severity Reaction Status Date / Time morphine Allergy Severe Hallucinati Unverified 11/12/22 19:08 ng codeine Allergy Intermediate Redness of Unverified 11/12/22 19:08 Skin prednisone Allergy Intermediate Itching Unverified 11/12/22 19:08 Medications Home Medications Medication Instructions Recorded Confirmed Last Taken albuterol sulfate 90 mcg/actuation 1 puff inhalation QID PRN bad cough 11/12/22 11/12/22 Unknown aerosol inhaler allopurinol 100 mg tablet 100 mg PO DAILY 11/12/22 11/12/22 Unknown amitriptyline 100 mg tablet 100 mg PO HS 11/12/22 11/12/22 Unknown amlodipine 2.5 mg tablet 2.5 mg PO DAILY 11/12/22 11/12/22 Unknown ascorbic acid (vitamin C) 500 mg 500 mg PO DAILY 11/12/22 11/12/22 Unknown capsule aspirin 81 mg chewable tablet 81 mg PO DAILY 11/12/22 11/12/22 Unknown atorvastatin 40 mg tablet (Lipitor) 40 mg PO HS 11/12/22 11/12/22 Unknown cholecalciferol (vitamin D3) 50 50 mcg PO DAILY 11/12/22 11/12/22 Unknown mcg (2,000 unit) tablet clonidine HCl 0.1 mg tablet 0.1 mg PO DAILY 11/12/22 11/12/22 Unknown clopidogrel 75 mg tablet 75 mg PO DAILY 11/12/22 11/12/22 Unknown denosumab 60 mg/mL subcutaneous 60 mg subcut Q6M 11/12/22 11/12/22 Unknown syringe (Prolia) docusate sodium 100 mg capsule 100 mg PO DAILY 11/12/22 11/12/22 Unknown (Colace) esomeprazole magnesium 40 mg 40 mg PO DAILY 11/12/22 11/12/22 Unknown capsule,delayed release (Nexium) ezetimibe 10 mg tablet 10 mg PO DAILY 11/12/22 11/12/22 Unknown furosemide 40 mg tablet (Lasix) 40 mg PO DAILY 11/12/22 11/12/22 Unknown gentamicin 0.1 % topical ointment 1 applic topical DAILY foot wound 11/12/22 11/12/22 Unknown insulin lispro 100 unit/mL 0 - 10 sliding scale dose subcut 11/12/22 11/12/22 Unknown subcutaneous pen (Humalog Tempo QID Pen (U-100) Insulin) isosorbide mononitrate 30 mg 30 mg PO HS 11/12/22 11/12/22 Unknown tablet,extended release 24 hr latanoprost 0.005 % eye drops 1 drp ophthalmic (eye) HS 11/12/22 11/12/22 Unknown levothyroxine 125 mcg tablet 125 mcg PO QAM 11/12/22 11/12/22 Unknown lisinopril 40 mg tablet (Zestril) 40 mg PO DAILY 11/12/22 11/12/22 Unknown loratadine 10 mg tablet 10 mg PO DAILY 11/12/22 11/12/22 Unknown melatonin 10 mg capsule 10 mg PO HS 11/12/22 11/12/22 Unknown meloxicam 15 mg tablet 15 mg PO DAILY 11/12/22 11/12/22 Unknown metoprolol tartrate 50 mg tablet See Rx Instructions .Route .COMPLEX 11/12/22 11/12/22 Unknown nitroglycerin 0.4 mg sublingual See Rx Instructions .Route .COMPLEX 11/12/22 11/12/22 Unknown tablet sevelamer carbonate 800 mg tablet 0 mg PO TID 11/12/22 11/12/22 Unknown vit B,C-folic ac 800 mcg-zinc 12.5 1 tab PO DAILY 11/12/22 11/12/22 Unknown mg-selen-D3 2,000 unit-vit E tablet (RenaPlex-D) zolpidem 5 mg tablet (Ambien) 5 mg PO DAILY 11/12/22 11/12/22 Unknown Active Medications Generic Name Dose Route Start Last Admin Trade Name Artemioq PRN Reason Stop Dose Admin Allopurinol 100 mg 11/13/22 09:00 11/13/22 08:45 Allopurinol 100 Mg Tab PO 12/13/22 08:59 100 mg DAILY SHARIFA Administration Amlodipine Besylate 2.5 mg 11/13/22 09:00 11/13/22 08:45 Amlodipine Besylate 5 Mg Tab PO 12/13/22 08:59 2.5 mg DAILY SHARIFA Administration Aspirin 81 mg 11/13/22 09:00 11/13/22 08:46 Aspirin 81 Mg Ectab PO 12/13/22 08:59 81 mg DAILY SHARIFA Administration Atorvastatin Calcium 40 mg 11/12/22 21:00 11/13/22 20:30 Atorvastatin 40 Mg Tab PO 12/12/22 20:59 40 mg HS SHARIFA Administration Clonidine HCl 0.1 mg 11/13/22 09:00 11/13/22 08:45 Clonidine Hcl 0.1 Mg Tab PO 12/13/22 08:59 0.1 mg [id number] SHARIFA Administration Clopidogrel Bisulfate 75 mg 11/13/22 09:00 11/13/22 08:46 Clopidogrel Bisulfate 75 Mg Tab PO 12/13/22 08:59 75 mg DAILY SHARIFA Administration Ezetimibe 10 mg 11/13/22 09:00 11/13/22 08:46 Ezetimibe 10 Mg Tablet PO 12/13/22 08:59 10 mg DAILY SHARIFA Administration Furosemide 40 mg 11/13/22 09:00 11/13/22 08:46 Furosemide 40 Mg Tab PO 12/13/22 08:59 40 mg DAILY SHARIFA Administration Heparin Sodium (Porcine) 5,000 units 11/12/22 21:00 11/13/22 20:28 Heparin Sod 5,000 Unit/0.5 Ml Vial SQ 12/12/22 20:59 5,000 units Q12 SHARIFA Administration Hydromorphone HCl 0.5 mg 11/13/22 10:52 11/14/22 03:39 Hydromorphone Inj 0.5 Mg/0.5 Ml Syr IV 11/27/22 10:51 0.5 mg Q4H PRN Administration Pain Insulin Aspart 0 units 11/13/22 06:00 11/14/22 05:45 Insulin Aspart Per Unit Charge SC 12/13/22 05:59 Not Given Q6 SHARIFA Isosorbide Mononitrate 30 mg 11/12/22 21:00 11/13/22 20:30 Isosorbide Crane Extended Rel 30 Mg Tabcr PO 12/12/22 20:59 30 mg HS SHARIFA Administration Levothyroxine Sodium 125 mcg 11/13/22 06:30 11/14/22 05:45 Levothyroxine Sodium 125 Mcg Tablet PO 12/13/22 06:29 125 mcg DAILYBB SHARIFA Administration Lisinopril 40 mg 11/13/22 09:00 11/13/22 08:46 Lisinopril 40 Mg Tab PO 12/13/22 08:59 40 mg DAILY SHARIFA Administration Metoprolol Tartrate 50 mg 11/13/22 09:00 11/13/22 08:45 Metoprolol Tartrate 50 Mg Tab PO 12/13/22 08:59 50 mg QAM SHARIFA Administration Metoprolol Tartrate 100 mg 11/12/22 21:00 11/13/22 20:29 Metoprolol Tartrate 50 Mg Tab PO 12/12/22 20:59 100 mg QPM SHARIFA Administration Miscellaneous 1 each 11/12/22 19:30 11/13/22 08:46 Remove Nicoderm Patch N/A 12/12/22 19:29 1 each [id number]@[id number] SHARIFA Administration Nicotine 21 mg 11/12/22 19:00 11/13/22 08:47 Nicotine 21 Mg/24 Hr Tdsy TD 12/12/22 18:59 Not Given QAM SHARIFA Pantoprazole Sodium 40 mg 11/13/22 09:00 11/13/22 08:45 Pantoprazole 40 Mg Tab PO 12/13/22 08:59 40 mg DAILY SHARIFA Administration Sevelamer HCl 0 mg 11/13/22 08:00 11/13/22 17:20 Sevelamer Hcl 800 Mg Tablet PO 12/13/22 07:59 800 mg TIDM SHARIFA Administration Vitamin B Complex/Folic Acid 1 cap 11/13/22 09:00 11/13/22 08:46 Nephrocaps PO 12/13/22 08:59 1 cap DAILY SHARIFA Administration Vitamin D 2,000 units 11/13/22 09:00 11/13/22 08:45 Cholecalciferol 1,000 Units 25 Mcg Tab PO 12/13/22 08:59 2,000 units DAILY SHARIFA Administration Zolpidem Tartrate 5 mg 11/12/22 21:00 11/13/22 20:32 Zolpidem Tartrate 5 Mg Tab PO 12/12/22 20:59 5 mg HS SHARIFA Administration NPO Date Last Intake of Fluids: 11/14/22 Time Last Intake of Fluids: 05:00 Last Intake of Fluids Comment: sip of water with meds Date Last Intake of Solids: 11/13/22 Time Last Intake of Solids: 20:00 Past Medical History Medical History Anemia CHF (congestive heart failure) ESRD (end stage renal disease) on dialysis HD . Follows with Dr. Mckeon HTN (hypertension) Exercise / Class Metabolic Activity III < 4 Walking/Shop/Light housework Past Anesthesia History No Hx of Anesthesia Complications and No Family Hx of Anesthesia Complications History of PONV No Hx of PONV and No Hx of Motion Sickness Social History Smoking Status: Current every day smoker tobacco type: cigarettes Smoking cigarettes per day: 6 Do You Dip or Chew Tobacco: No Hx Alcohol Use: No Hx Substance Use: No substance use type: does not use Physical Exam Vital Signs Last Vital Signs Temp 36.9 C 11/14/22 00:02 Pulse 67 11/14/22 00:02 Resp 18 11/14/22 00:02 BP 160/66 H 11/14/22 00:02 Pulse Ox 99 11/14/22 00:02 O2 Del Method Room Air 11/14/22 00:02 Constitutional no acute distress and not obese ENMT Mouth: + dentition abnormality and + edentulous Thyromental Distance: < 3.5 Finger Breadths Mallampati Class: II Neck normal visual inspection and trachea midline; neck extension not limited Respiratory normal respiratory effort Auscultation: + diminished lung sounds Cardiovascular Rate/Rhythm: regular rate and regular rhythm Heart Sounds: no murmur Vessels: no carotid bruit Chest (Breasts) Chest: + vascular access device or port Musculoskeletal Spine: normal cervical ROM and no pain with cervical ROM Extremities: full ROM of extremities Neurologic moves all extremities Motor/Sensory: + sensory deficit Psychiatric Orientation: alert and oriented x 3 Testing Laboratory Results 11/13/22 06:12 11/13/22 06:12 PT 11.4 Seconds (9.0-12.0) 11/13/22 06:12 INR 1.0 (0.9-1.1) 11/13/22 06:12 Hemoglobin A1c 5.6 % (4.5-5.6) 11/13/22 06:12 11/12/22 16:25 Aerobic Blood Culture - Preliminary Blood No growth in Aerobic bottle after 24 hours. Anaerobic Blood Culture - Final 11/12/22 15:26 Aerobic Blood Culture - Preliminary Blood No growth in Aerobic bottle after 24 hours. Anaerobic Blood Culture - Preliminary No growth in Anaerobic bottle after 24 hours. 11/12/22 14:45 Gram Stain - Final Foot,Left Aerobic and Anaerobic Culture - Preliminary Pin-point growth present, reincubating. 11/14/22 11/13/22 11/13/22 05:44 23:59 19:55 POC Glucose 121 H 111 H 110 H Electrocardiogram Date: 11/12/22 Findings: + NSR @ (@ 62) and + LVH Chest X-Ray Date: 11/12/22 Findings: + NAD and + atherosclerosis of thoracic aorta
[2022-11-14] MEDS ORDERED: ATROPINE SULFATE 0.1 MG/ML 10ML SYR IV PRN (07:34)
[2022-11-14] MEDS ORDERED: ePHEDrine sulfate 50 MG/ML AMP IV PRN (07:34)
--- NOTE | 2022-11-14 07:34 | History & Physical Bridge Note ---
Date of Service November 14, 2022 History & Physical Bridge Note I have examined the patient, reviewed the History & Physical and in the interval since the performance of the History & Physical I have noted the following changes of clinical significance: no changes noted
[2022-11-14] MEDS ORDERED: BUPIVACAINE 0.5 % 5 MG/1 ML MPF 30ML VIAL ONE (07:49)
[2022-11-14] MEDS ORDERED: PROPOFOL IV EMULSION 10 MG/ML 20 ML VIAL IV ONE (07:54)
[2022-11-14] MEDS ORDERED: LIDOCAINE 2% 2 ML VIAL/AMP(20MG/ML) INFIL ONE (07:54)
[2022-11-14] MEDS ORDERED: fentaNYL citrate PF 100 MCG/2 ML VIAL ONE (07:54)
[2022-11-14] MEDS ORDERED: MIDAZOLAM HCL 1 MG/ML 2ML VIAL ONE (07:54)
--- NOTE | 2022-11-14 08:29 | Post Operative Brief Note ---
Immediate Post Op Note v1 Date of Surgery November 14, 2022 Pre & Post Diagnosis Operation Date: 11/14/22 07:30 Pre-Op Diagnosis: Osteomyelitis of left foot Post-Op Diagnosis: Osteomyelitis of left foot I identified the patient and participated in the time-out.: Yes Procedure Operation Date: 11/14/22 07:30 Actual Procedures p left 5th ray amputation(Left) - Yong Dias DPM, MS Surgeon Yong Dias DPM, MS Medical Research Tech None Estimated Blood Loss 0 Findings Consistent with Post-Op Diagnosis Necrotic left foot wound Specimens Left foot proximal phalanx bone fifth toe
[2022-11-14] MEDS ORDERED: ceFAZolin 1000MG 1,000 MG/7.5 ML SYR IV ONE (08:32)
[2022-11-14] MEDS ORDERED: ceFAZolin 330 MG/ML 1 GM VIAL ONE (08:36)
--- NOTE | 2022-11-14 09:02 | Operative Report ---
Post Operative Report Pre & Post Diagnosis Operation Date: 11/14/22 07:30 Pre-Op Diagnosis: Osteomyelitis of left foot Post-Op Diagnosis: Osteomyelitis of left foot I identified the patient and participated in the time-out.: Yes Procedure Operation Date: 11/14/22 07:30 Actual Procedures p left 5th ray amputation, application of wound vac dressing(Left) - Yong Dias DPM, MS Surgeon Yong Dias DPM, MS Traffic Supervisor None Estimated Blood Loss 0 Findings Consistent with Post-Op Diagnosis Necrotic left foot wound Specimens left foot fifth proximal phalanx bone Description of Procedure Patient is a type I diabetic, 62 year old female who presents for treatment of a diabetic left foot wound. CT has shown osteomyelitis of residual left fifth proximal phalanx. Patient is seen today for surgical debridement, excision of non viable bone and soft tissue and application of wound vac. I have reviewed the procedure and post operative recovery with Patient in detail. All questions answered. All potential risks, benefits, complications, alternatives, rehab, potential for incomplete relief of symptoms, need for further surgery, DVT, PE, , persistent pain, swelling, scarring, weakness, neurovascular, wound complications and potential for amputations were discussed with patient. Unwanted outcomes such as, but not limited to were reviewed including under correction, overcorrection, return of deformity, infection. All questions were answered. Patient has decided to proceed with procedure as indicated. Preoperative diagnosis: 1.) Left foot diabetic non healing wound 2.) Left foot fifth proximal phalanx Osteomyelitis Postoperative diagnosis: Same Name of operation: 1.) Wound excision left foot 2.) Left fifth proximal phalanx excision 3.) Left partial excision of fifth metatarsal head 4.) Left foot application of wound vac Surgeon: Dr. Dias Traffic Supervisor: None Anesthesia: General Estimated blood loss: Minimal Procedure in detail: Under mild sedation the patient was brought in the operating room placed on the operating table in supine position. A pneumatic calf tourniquet was then placed about the patient's left ankle. Following sedation, the foot was then prepped, scrubbed, and draped, in the usual aseptic manner. An Esmarch bandage utilized examining the patient's left foot and the pneumatic ankle tourniquet was inflated. Attention was then directed to the lateral foot non healing necrotic wound measuring 5 x 3 x 2 cm. Utilizing a sharp sterile, number 15 blade the wound was excised with out incident and placed on the back table. At this time the resdiual proximal phalanx bone was located and excised in toto. This was placed on the back table, labelled and sent for culture and sensitivities. At this time attention was directed to the wound and wound base. Utilizing a sharp sterile, number 15 blade the 5 x 3 x 2 cm diabetic lateral foot ulcer was debridement sharply down to healthy bleeding tissue. The wound base exposed the fifth metatarsal head which was noted to be discolored consistent with non viable tissue and suspected osteomyelitis. Utilizing an oscillating bone saw the head of the fifth metatarsal was removed and then excised with a #15 blade. The pneumatic ankle tourniquet was deflated. The wound was irrigated with 3 L of lactate ringer. At this time negative pressure wound therapy was applied to the left foot lateral wound. The wound vac was placed on 125mmHg continuous. The Patient tolerated the procedure and anesthesia well. The Patient was transferred to recovery room with vital signs stable. Following a period of Postoperative monitoring the Patient will be readmitted to the floor resuming all preoperative orders. I attest to the content of the Intraoperative Record and any orders documented therein. Any exceptions are noted below.
--- NOTE | 2022-11-14 09:49 | Anesthesiology Progress Note ---
Date of Service November 14, 2022 Anesthesia Post Procedure Vital Signs Vital Signs: Temp Pulse Pulse Pulse Resp BP Pulse Ox 11/14/22 08:50 36.3 C L 57 L 14 165/82 H 99 11/14/22 08:40 36.3 C L 58 L 17 157/66 H 100 11/14/22 08:29 36.3 C L 58 L 8 L 145/47 H 94 11/14/22 00:02 36.9 C 67 18 160/66 H 99 11/13/22 15:00 36.8 C 79 18 163/63 H 97 O2 Del Method O2 Flow Rate 11/14/22 08:50 Room Air 11/14/22 08:40 Oxymask 3 11/14/22 08:29 Oxymask 5 11/14/22 00:02 Room Air 11/13/22 15:00 Room Air Transfer of Care Handoff Completed per policy Notes Mental Status: alert / awake / arousable Patient Amnestic to Procedure: Yes Nausea / Vomiting: adequately controlled Pain: adequately controlled Airway Patency, RR, SpO2: stable & adequate BP & HR: stable & adequate Hydration State: stable & adequate Anesthetic Complications: no major complications apparent
[2022-11-14] MEDS: METOPROLOL TARTRATE 50 MG TAB PO SCH ×2 (10:04→20:22)
[2022-11-14] MEDS: FUROSEMIDE 40 MG TAB PO SCH (10:05)
[2022-11-14] MEDS: cloNIDine HCL 0.1 MG TAB PO SCH (10:05)
[2022-11-14] MEDS: allopurinoL 100 MG TAB PO SCH (10:05)
[2022-11-14] MEDS: CLOPIDOGREL BISULFATE 75 MG TAB PO SCH (10:05)
[2022-11-14] MEDS: NEPHROCAPS PO SCH (10:05)
[2022-11-14] MEDS: lisinopril 40 MG TAB PO SCH (10:05)
[2022-11-14] MEDS: EZETIMIBE 10 MG TABLET PO SCH (10:05)
[2022-11-14] MEDS: amLODIPine BESYLATE 5 MG TAB PO SCH (10:06)
[2022-11-14] MEDS: ASPIRIN 81 MG ECTAB PO SCH (10:06)
[2022-11-14] MEDS: NICOTINE 21 MG/24 HR TDSY TD SCH (10:06)
[2022-11-14] MEDS: HEPARIN SOD 5,000 UNIT/0.5 ML VIAL SQ SCH ×2 (10:07→20:22)
[2022-11-14] MEDS: CHOLECALCIFEROL 1,000 UNITS 25 MCG TAB PO SCH (10:07)
[2022-11-14 10:17] LABS: Basophils # (auto) 0.02 K/uL (0-0.2); Basophils % (auto) 0.4 %; Eosinophils # (auto) 0.08 K/uL (0-0.50); Eosinophils % (auto) 1.4 %; Hematocrit (blood only) 27.1 % (37.0-47.0); Immature Granulocytes # (auto) 0.01 K/uL (0.01-0.20); Immature Granulocytes % (auto) 0.2 %; Lymphocytes # (auto) 1.78 K/uL (1.2-3.4); Lymphocytes % (auto) 31.4 %; Mean Corpuscular Hemoglobin 33.3 pg (25.0-34.0); Mean Corpuscular Hgb Conc 33.2 g/dL (32.0-36.0); Mean Corpuscular Volume 100.4 fL (80.0-100.0); Mean Platelet Volume 10.3 fL (9.4-12.4); Monocytes % (auto) 7.1 %; Neutrophils # (auto) 3.38 K/uL (1.40-6.50); Neutrophils % (auto) 59.5 %; Platelet Count 200 K/uL (130-400); RDW Coefficient of Variation 15.9 % (11.5-14.5); RDW Standard Deviation 58.3 fL (36.4-46.3); White Blood Count 5.67 K/ul (4.8-10.8)
[2022-11-14 10:37] LABS: Albumin Globulin Ratio 0.8 (0.9-2); Albumin Level 2.7 gm/dl (3.4-5.0); BUN Creatinine Ratio 5.1 (10-20); Bilirubin,Total 0.4 mg/dl (0.2-1.0); Calcium 8.5 mg/dl (8.6-10.3); Creatinine Clr Calc Pharmacy 10.7 ml/min; Est GFR (African American) 10.7 ml/min; Est GFR (Non-African American) 9.2 ml/min; Globulin 3.2 gm/dl (2.5-4.0); Magnesium 1.9 mg/dl (1.7-2.4); Phosphorus 5.6 mg/dl (2.5-4.9); Total Protein 5.9 gm/dl (6.0-8.3)
[2022-11-14 10:52] LABS: Prothrombin Time 11.1 Seconds (9.0-12.0)
[2022-11-14] MEDS: SEVELAMER HCL 800 MG TABLET PO SCH ×3 (10:59→17:34)
[2022-11-14] MEDS: PANTOprazole 40 MG TAB PO SCH (11:33)
--- NOTE | 2022-11-14 11:41 | Nephrology Progress Note ---
Date of Service November 14, 2022 Assessment & Plan (1) ESRD (end stage renal disease) on dialysis: (2) HTN (hypertension): (3) Anemia: (4) Weakness: (5) Acute pain of left foot: (6) Osteomyelitis: Plan 62-year-old female with end-stage renal disease, on hemodialysis secondary to d iabetic nephropathy, chronic diabetic foot ulcer status post amputation and surgical site infection now admitted with generalized weakness and concern for osteomyelitis with failed outpatient antibiotic after receiving vancomycin for 2 weeks. Had toe amputation and wound vac placed on 11/14/22 Currently off of antibiotic , pending bone biopsy after toe amputation today. Overall clinically otherwise stable. Electrolyte, volume status acceptable. BP fair. --plan for dialysis treatment on Tuesday for 3 hours. --Right arm nephrology precaution for AV fistula, dose medications for EGFR less than 10 --AUGIE with HD on 11/15/22 --continue Nephrocaps and Renvela --will need rehab. Will follow. Admission and Anticipated Discharge Date Admission Date: November 12, 2022 Subjective Jacqui was seen and evaluated this morning. She just had left 5th toe amputation, denies any pain. Otherwise feels well. Review of Systems Review of Systems: detailed review of system was done and pertinent positives and negatives are mentioned above. Physical Exam Constitutional: WD/WN, vitals as above no acute distress Eyes: + anicteric sclerae Neck: normal visual inspection Respiratory: no respiratory distress Auscultation: lungs clear to auscultation bilaterally Cardiovascular: Rate/Rhythm: regular rate and regular rhythm Heart Sounds: normal S1 and normal S2 Extremities: + AV fistula (RT BC AVF with thrill and bruit.); no edema Musculoskeletal: left foot s/p 5th toe amputation, wound vac in place. Skin: no rashes, warm and dry Neurologic: no focal motor deficits Psychiatric: Orientation: alert and oriented x 3 Affect: euthymic affect Results & Data Vital Signs (Past 12 Hours) Vital Signs Temp Pulse Pulse Resp BP Pulse Ox O2 Del Method 11/14/22 11:27 36.6 C 60 18 160/66 H 98 Room Air 11/14/22 10:20 36.6 C 60 16 175/68 H 99 Room Air 11/14/22 09:44 36.6 C 62 16 174/58 H 100 Room Air 11/14/22 08:50 36.3 C L 57 L 14 165/82 H 99 Room Air 11/14/22 08:40 36.3 C L 58 L 17 157/66 H 100 Oxymask 11/14/22 08:29 36.3 C L 58 L 8 L 145/47 H 94 Oxymask 11/14/22 00:02 36.9 C 67 18 160/66 H 99 Room Air O2 Flow Rate 11/14/22 11:27 11/14/22 10:20 11/14/22 09:44 11/14/22 08:50 11/14/22 08:40 3 11/14/22 08:29 5 11/14/22 00:02 PG Care Time/CCT Total # of Minutes Spent Total Time Spent with Patient: Total time spent is greater than 50% in coordination of care (as documented) at patient's floor/unit and/or counseling patient: Coding Level of Care Code 57161 SUB INP/OBS CARE 2/35MIN Diagnoses ESRD (end stage renal disease) on dialysis N18.6; Z99.2 HTN (hypertension) I10 Anemia D64.9 Weakness R53.1 Acute pain of left foot M79.672 Osteomyelitis M86.9 Laterality: left Osteomyelitis location: foot Osteomyelitis type: unspecified type (6) Osteomyelitis Laterality: left Osteomyelitis location: foot Osteomyelitis type: unspecified type Qualified Code(s): M86.9 - Osteomyelitis, unspecified
[2022-11-14 14:11] LABS: Appearance Urine Clear (Clear); Bacteria Urine Automated Negative (Negative); Bilirubin Urine Negative (Negative); Blood Urine Negative (Negative); Cast Urine Automated 0 /lpf (0-5); Color Urine Yellow; Epithelial Cell Urine Auto >30 /lpf (0-5); Glucose Urine UA Negative (Negative); Ketones Urine Negative (Negative); Leukocyte Esterase Urine Negative (Negative); Nitrite Urine Negative (Negative); Specific Gravity Urine 1.009 (1.000-1.030); Urobilinogen Urine Negative (Negative)
[2022-11-14] MEDS ORDERED: Nursing to Pharmacy Communication SCH (14:15)
[2022-11-14 14:35] LABS: Protein Urine 2+ (Negative)
--- NOTE | 2022-11-14 16:00 | Hospitalist Progress Note ---
Date of Service November 14, 2022 Assessment & Plan (1) Osteomyelitis of left foot: Plan: Status post left fifth toe amputation 11/[address] Awaiting biopsy results (2) Ambulatory dysfunction: Plan: Multifactorial to chronic comorbid disease as well as amputation of toe and current probable osteomyelitis PT/OT evaluation and treatment We will see if patient requires inpatient rehab at time of discharge (3) DM II (diabetes mellitus, type II), controlled: Plan: Hemoglobin A1c 5.6% on 11/13/2022. This may be unreliable due to patient's chronic end-stage renal disease and hemodialysis Wednesdays and Fridays Basal insulin is currently on hold secondary to n.p.o. status for surgery Continue with sliding scale insulin We will follow BS's ACHS (4) CAD (coronary artery disease): Plan: Continue amlodipine, clopidogrel, Imdur, lisinopril, metoprolol tartrate, and aspirin Patient denies any chest pain or tightness Continue home dose of 40 mg of p.o. furosemide and follow strict ins and outs (5) ESRD (end stage renal disease) on dialysis: Plan: Hemodialysis Tuesday and Tuesday Nephrology is consulted. Appreciate their input (6) HTN (hypertension): Plan: Multi agent therapy at this time Hemodynamically stable Continue outpatient monitoring with cardiology (7) B12 deficiency: Plan: Continue repletion (8) Hypothyroidism: Plan: Continue levothyroxine 125 mcg daily Outpatient management (9) Tobacco abuse: Plan: Patient continues to smoke daily Discussed importance of abstention Patient denies urges for cigarettes at this time Nicotine patch offered and deferred (10) Hyperlipidemia: Plan: Continue ezetimibe Admission and Anticipated Discharge Date Admission Date: November 12, 2022 Subjective Patient went to the OR today. Had fifth toe amputation done by Dr. Dias. Wound VAC in place. She denies any chest pain or shortness of breath. Review of Systems Review of Systems: All systems reviewed & are unremarkable except as noted in Subjective Physical Exam Physical Exam: General: Awake, conversant Heart: S1, S2/regular rate and rhythm, no murmur rubs or gallops Lungs: Clear to auscultation bilaterally. Normal effort Abdomen: Soft/nontender/nondistended. No hepatosplenomegaly Extremities: No clubbing/cyanosis. No edema. Status post left fifth toe amputation. Wound VAC in place. Behavior: Appropriate, cooperative Results & Data Results & Data Vital Signs (Past 12 Hours) Vital Signs Temp Pulse Pulse Resp BP Pulse Ox O2 Del Method 11/14/22 12:56 62 18 138/55 L 96 Room Air 11/14/22 11:27 36.6 C 60 18 160/66 H 98 Room Air 11/14/22 10:20 36.6 C 60 16 175/68 H 99 Room Air 11/14/22 09:44 36.6 C 62 16 174/58 H 100 Room Air 11/14/22 08:50 36.3 C L 57 L 14 165/82 H 99 Room Air 11/14/22 08:40 36.3 C L 58 L 17 157/66 H 100 Oxymask 11/14/22 08:29 36.3 C L 58 L 8 L 145/47 H 94 Oxymask O2 Flow Rate 11/14/22 12:56 11/14/22 11:27 11/14/22 10:20 11/14/22 09:44 11/14/22 08:50 11/14/22 08:40 3 11/14/22 08:29 5 Laboratory Results Abnormal lab results 11/13/22 11/13/22 11/13/22 Range/Units 16:58 19:55 23:59 RBC (4.20-5.40) M/uL Hgb (12.0-16.0) g/dl Hct (37.0-47.0) % MCV (80.0-100.0) fL RDW Std Deviation (36.4-46.3) fL RDW Coeff of Evette (11.5-14.5) % Chloride (98-107) mmol/L Carbon Dioxide (21-32) mmol/L BUN (6-23) mg/dl Creatinine (0.6-1.2) mg/dl BUN/Creatinine Ratio (10-20) POC Glucose 105 H 110 H 111 H (70-99) mg/dl Calcium (8.6-10.3) mg/dl Phosphorus (2.5-4.9) mg/dl AST (13-39) U/L Alkaline Phosphatase (34-104) U/L Total Protein (6.0-8.3) gm/dl Albumin (3.4-5.0) gm/dl Albumin/Globulin Ratio (0.9-2) Urine pH (4.5-7.5) Urine Protein (Negative) Urine RBC (Auto) (0-4) /hpf U Epithel Cells (Auto) (0-5) /lpf 11/14/22 11/14/22 11/14/22 Range/Units 05:44 09:29 09:29 RBC 2.70 L (4.20-5.40) M/uL Hgb 9.0 L (12.0-16.0) g/dl Hct 27.1 L (37.0-47.0) % MCV 100.4 H (80.0-100.0) fL RDW Std Deviation 58.3 H (36.4-46.3) fL RDW Coeff of Evette 15.9 H (11.5-14.5) % Chloride 97 L (98-107) mmol/L Carbon Dioxide 33 H (21-32) mmol/L BUN 24 H (6-23) mg/dl Creatinine 4.75 H* D (0.6-1.2) mg/dl BUN/Creatinine Ratio 5.1 L (10-20) POC Glucose 121 H (70-99) mg/dl Calcium 8.5 L (8.6-10.3) mg/dl Phosphorus 5.6 H (2.5-4.9) mg/dl AST 47 H (13-39) U/L Alkaline Phosphatase 139 H (34-104) U/L Total Protein 5.9 L (6.0-8.3) gm/dl Albumin 2.7 L (3.4-5.0) gm/dl Albumin/Globulin Ratio 0.8 L (0.9-2) Urine pH (4.5-7.5) Urine Protein (Negative) Urine RBC (Auto) (0-4) /hpf U Epithel Cells (Auto) (0-5) /lpf 11/14/22 Range/Units 13:09 RBC (4.20-5.40) M/uL Hgb (12.0-16.0) g/dl Hct (37.0-47.0) % MCV (80.0-100.0) fL RDW Std Deviation (36.4-46.3) fL RDW Coeff of Evette (11.5-14.5) % Chloride (98-107) mmol/L Carbon Dioxide (21-32) mmol/L BUN (6-23) mg/dl Creatinine (0.6-1.2) mg/dl BUN/Creatinine Ratio (10-20) POC Glucose (70-99) mg/dl Calcium (8.6-10.3) mg/dl Phosphorus (2.5-4.9) mg/dl AST (13-39) U/L Alkaline Phosphatase (34-104) U/L Total Protein (6.0-8.3) gm/dl Albumin (3.4-5.0) gm/dl Albumin/Globulin Ratio (0.9-2) Urine pH 8.0 H (4.5-7.5) Urine Protein 2+ H (Negative) Urine RBC (Auto) 5-10 H (0-4) /hpf U Epithel Cells (Auto) >30 H (0-5) /lpf PG Care Time/CCT Total # of Minutes Spent Total Time Spent with Patient: Total time spent is greater than 50% in coordination of care (as documented) at patient's floor/unit and/or counseling patient: Coding Level of Care Code 02183 SUB INP/OBS CARE 2/35MIN Diagnoses Osteomyelitis of left foot M86.9 Ambulatory dysfunction R26.2 DM II (diabetes mellitus, type II), controlled E11.9 CAD (coronary artery disease) I25.10 ESRD (end stage renal disease) on dialysis N18.6; Z99.2 HTN (hypertension) I10 B12 deficiency E53.8 Hypothyroidism E03.9 Tobacco abuse Z72.0 Hyperlipidemia E78.5
[2022-11-14] MEDS: ISOSORBIDE MONO EXTENDED REL 30 MG TABCR PO SCH (20:22)
[2022-11-14] MEDS: ATORVASTATIN 40 MG TAB PO SCH (20:22)
[2022-11-14] MEDS: ZOLPIDEM TARTRATE 5 MG TAB PO SCH (20:24)
[2022-11-15] MEDS: HYDROmorphone INJ 0.5 MG/0.5 ML SYR IV PRN ×5 (01:41→22:06)
[2022-11-15] MEDS: LEVOTHYROXINE SODIUM 125 MCG TABLET PO SCH (05:33)
[2022-11-15] MEDS: INSULIN ASPART PER UNIT CHARGE SC SCH ×4 (08:17→22:00)
[2022-11-15] MEDS: EZETIMIBE 10 MG TABLET PO SCH (08:18)
[2022-11-15] MEDS: CHOLECALCIFEROL 1,000 UNITS 25 MCG TAB PO SCH (08:18)
[2022-11-15] MEDS: METOPROLOL TARTRATE 50 MG TAB PO SCH ×2 (08:18→22:08)
[2022-11-15] MEDS: NICOTINE 21 MG/24 HR TDSY TD SCH (08:18)
[2022-11-15] MEDS: PANTOprazole 40 MG TAB PO SCH (08:18)
[2022-11-15] MEDS: lisinopril 40 MG TAB PO SCH (08:18)
[2022-11-15] MEDS: allopurinoL 100 MG TAB PO SCH (08:18)
[2022-11-15] MEDS: HEPARIN SOD 5,000 UNIT/0.5 ML VIAL SQ SCH ×2 (08:19→20:18)
[2022-11-15] MEDS: NEPHROCAPS PO SCH (08:19)
[2022-11-15] MEDS: ASPIRIN 81 MG ECTAB PO SCH (08:19)
[2022-11-15] MEDS: FUROSEMIDE 40 MG TAB PO SCH (08:19)
[2022-11-15] MEDS: amLODIPine BESYLATE 5 MG TAB PO SCH (08:19)
[2022-11-15] MEDS: CLOPIDOGREL BISULFATE 75 MG TAB PO SCH (08:19)
[2022-11-15] MEDS ORDERED: EPOETIN ALFA 10,000 UNITS/ML VIAL IV SCH (09:00)
[2022-11-15 09:08] LABS: Basophils # (auto) 0.02 K/uL (0-0.2); Basophils % (auto) 0.4 %; Eosinophils # (auto) 0.07 K/uL (0-0.50); Eosinophils % (auto) 1.3 %; Immature Granulocytes # (auto) 0.02 K/uL (0.01-0.20); Immature Granulocytes % (auto) 0.4 %; Lymphocytes # (auto) 1.82 K/uL (1.2-3.4); Lymphocytes % (auto) 33.4 %; Mean Corpuscular Hemoglobin 32.7 pg (25.0-34.0); Mean Corpuscular Hgb Conc 33.3 g/dL (32.0-36.0); Mean Corpuscular Volume 98.2 fL (80.0-100.0); Mean Platelet Volume 10.6 fL (9.4-12.4); Monocytes % (auto) 7.3 %; Neutrophils # (auto) 3.12 K/uL (1.40-6.50); Neutrophils % (auto) 57.2 %; Platelet Count 176 K/uL (130-400); RDW Coefficient of Variation 15.5 % (11.5-14.5); RDW Standard Deviation 54.6 fL (36.4-46.3); Red Blood Count 2.75 M/uL (4.20-5.40); White Blood Count 5.45 K/ul (4.8-10.8)
[2022-11-15] MEDS: SEVELAMER HCL 800 MG TABLET PO SCH ×3 (09:24→17:26)
[2022-11-15 09:39] LABS: Prothrombin Time 11.4 Seconds (9.0-12.0)
[2022-11-15 09:47] LABS: Albumin Level 2.7 gm/dl (3.4-5.0); BUN Creatinine Ratio 5.5 (10-20); Bilirubin,Total 0.3 mg/dl (0.2-1.0); Calcium 8.6 mg/dl (8.6-10.3); Creatinine Clr Calc Pharmacy 9.1 ml/min; Est GFR (African American) 8.7 ml/min; Est GFR (Non-African American) 7.5 ml/min; Globulin 2.8 gm/dl (2.5-4.0); Magnesium 1.9 mg/dl (1.7-2.4); Potassium 4.3 mmol/L (3.5-5.1); Total Protein 5.5 gm/dl (6.0-8.3)
--- NOTE | 2022-11-15 12:46 | Nephrology Progress Note ---
Date of Service November 15, 2022 Assessment & Plan (1) ESRD (end stage renal disease) on dialysis: Plan: HD MWF. Orders for dialysis today entered into EHR and reviewed with RN. Completed majority of treatment. Adequate clearance and UF. AVF functioning well. Medications appropriately dosed for IHD. Patient was seen and evaluated during HD. (2) HTN (hypertension): Plan: Volume status acceptable. Renal diet. BP acceptable. Continue lisinopril, clonidine, metoprolol, Imdur, and amlodipine per home Rx. (3) Anemia: Plan: s/p 1 unit PRBC transfusion support on Tuesday prior to admission. H/H stable. No melena or hematochezia. Epogen 33791 units provided with HD today. (4) Weakness: Plan: Anticipate placement at [facility]/SNF versus rehab at discharge. (5) Osteomyelitis: Plan: POD # 1 s/p amputation by Dr. Dias. Plan Admission and Anticipated Discharge Date Admission Date: November 12, 2022 Subjective No acute events overnight. Jacqui was seen and evaluated during HD this AM. She is tolerating dialysis well. Due to short power outage during treatment, blood was returned and machine reset once. Following second outage, blood was returned and treatment stopped 40 minutes early. BP acceptable. Overall, Jacqui has not complaints. Pain is well controlled. Review of Systems Review of Systems: All systems reviewed & are unremarkable except as noted in HPI & below Physical Exam Constitutional: WD/WN, vitals as above no acute distress Eyes: + anicteric sclerae Neck: normal visual inspection Respiratory: no respiratory distress Auscultation: lungs clear to auscultation bilaterally Cardiovascular: Rate/Rhythm: regular rate and regular rhythm Heart Sounds: normal S1 and normal S2 Extremities: + AV fistula (RT BC AVF with thrill and bruit.); no edema Musculoskeletal: left foot s/p 5th toe amputation, wound vac in place. Skin: no rashes, warm and dry Neurologic: no focal motor deficits Psychiatric: Orientation: alert and oriented x 3 Affect: euthymic affect Results & Data Vital Signs (Past 12 Hours) Vital Signs Temp Pulse Pulse Pulse Resp BP BP 11/15/22 12:35 36.7 C 69 16 162/78 H 11/15/22 10:30 61 161/55 H 11/15/22 11:00 61 157/85 H 11/15/22 10:00 53 L 150/55 H 11/15/22 09:30 53 L 162/66 H 11/15/22 09:17 54 L 163/58 H 11/15/22 09:13 36.8 C 57 L 11/15/22 07:43 36.8 C 60 16 139/68 11/15/22 05:24 36.5 C 60 16 148/61 H Pulse Ox O2 Del Method 11/15/22 12:35 98 Room Air 11/15/22 10:30 11/15/22 11:00 11/15/22 10:00 11/15/22 09:30 11/15/22 09:17 11/15/22 09:13 11/15/22 07:43 95 Room Air 11/15/22 05:24 96 Room Air Laboratory Results Laboratory Results - last 24 hr 11/14/22 11/14/22 11/14/22 13:09 17:16 20:52 WBC RBC Hgb Hct MCV MCH MCHC RDW Std Deviation RDW Coeff of Evette Plt Count MPV Immature Gran % (Auto) Neut % (Auto) Lymph % (Auto) [place] % (Auto) Eos % (Auto) Baso % (Auto) Neut # (Auto) Lymph # (Auto) [place] # (Auto) Eos # (Auto) Baso # (Auto) Immature Gran # (Auto) PT INR Sodium Potassium Chloride Carbon Dioxide Anion Gap BUN Creatinine Est Cr Clr Drug Dosing Est GFR ( Amer) Est GFR (Non-Af Amer) BUN/Creatinine Ratio Glucose POC Glucose 124 H 124 H Calcium Phosphorus Magnesium Total Bilirubin AST ALT Alkaline Phosphatase Total Protein Albumin Globulin Albumin/Globulin Ratio Urine Color Yellow Urine Appearance Clear Urine pH 8.0 H Ur Specific [place] 1.009 Urine Protein 2+ H Urine Glucose (UA) Negative Urine Ketones Negative Urine Blood Negative Urine Nitrite Negative Urine Bilirubin Negative Urine Urobilinogen Negative Ur Leukocyte Esterase Negative Urine WBC (Auto) 1-5 Urine RBC (Auto) 5-10 H U Hyaline Cast (Auto) 0 U Epithel Cells (Auto) >30 H Urine Bacteria (Auto) Negative 11/15/22 11/15/22 11/15/22 08:07 08:18 08:18 WBC 5.45 RBC 2.75 L Hgb 9.0 L Hct 27.0 L MCV 98.2 MCH 32.7 MCHC 33.3 RDW Std Deviation 54.6 H RDW Coeff of Evette 15.5 H Plt Count 176 MPV 10.6 Immature Gran % (Auto) 0.4 Neut % (Auto) 57.2 Lymph % (Auto) 33.4 [place] % (Auto) 7.3 Eos % (Auto) 1.3 Baso % (Auto) 0.4 Neut # (Auto) 3.12 Lymph # (Auto) 1.82 [place] # (Auto) 0.40 Eos # (Auto) 0.07 Baso # (Auto) 0.02 Immature Gran # (Auto) 0.02 PT 11.4 INR 1.0 Sodium Potassium Chloride Carbon Dioxide Anion Gap BUN Creatinine Est Cr Clr Drug Dosing Est GFR ( Amer) Est GFR (Non-Af Amer) BUN/Creatinine Ratio Glucose POC Glucose 101 H Calcium Phosphorus Magnesium Total Bilirubin AST ALT Alkaline Phosphatase Total Protein Albumin Globulin Albumin/Globulin Ratio Urine Color Urine Appearance Urine pH Ur Specific [place] Urine Protein Urine Glucose (UA) Urine Ketones Urine Blood Urine Nitrite Urine Bilirubin Urine Urobilinogen Ur Leukocyte Esterase Urine WBC (Auto) Urine RBC (Auto) U Hyaline Cast (Auto) U Epithel Cells (Auto) Urine Bacteria (Auto) 11/15/22 11/15/22 08:18 12:30 WBC RBC Hgb Hct MCV MCH MCHC RDW Std Deviation RDW Coeff of Evette Plt Count MPV Immature Gran % (Auto) Neut % (Auto) Lymph % (Auto) [place] % (Auto) Eos % (Auto) Baso % (Auto) Neut # (Auto) Lymph # (Auto) [place] # (Auto) Eos # (Auto) Baso # (Auto) Immature Gran # (Auto) PT INR Sodium 136 Potassium 4.3 Chloride 99 Carbon Dioxide 32 Anion Gap 5 BUN 31 H Creatinine 5.65 H* D Est Cr Clr Drug Dosing 9.1 Est GFR ( Amer) 8.7 Est GFR (Non-Af Amer) 7.5 BUN/Creatinine Ratio 5.5 L Glucose 83 POC Glucose 122 H Calcium 8.6 Phosphorus 6.0 H Magnesium 1.9 Total Bilirubin 0.3 AST 27 ALT 13 Alkaline Phosphatase 114 H Total Protein 5.5 L Albumin 2.7 L Globulin 2.8 Albumin/Globulin Ratio 1.0 Urine Color Urine Appearance Urine pH Ur Specific [place] Urine Protein Urine Glucose (UA) Urine Ketones Urine Blood Urine Nitrite Urine Bilirubin Urine Urobilinogen Ur Leukocyte Esterase Urine WBC (Auto) Urine RBC (Auto) U Hyaline Cast (Auto) U Epithel Cells (Auto) Urine Bacteria (Auto) PG Care Time/CCT Total # of Minutes Spent Total Time Spent with Patient: Total time spent is greater than 50% in coordination of care (as documented) at patient's floor/unit and/or counseling patient: Coding Level of Care Code 87973 SUB INP/OBS CARE 3/50MIN Diagnoses ESRD (end stage renal disease) on dialysis N18.6; Z99.2 HTN (hypertension) I10 Anemia D64.9 Weakness R53.1 Osteomyelitis M86.9 Laterality: left Osteomyelitis location: foot Osteomyelitis type: unspecified type (5) Osteomyelitis Laterality: left Osteomyelitis location: foot Osteomyelitis type: unspecified type Qualified Code(s): M86.9 - Osteomyelitis, unspecified
--- NOTE | 2022-11-15 15:49 | Hospitalist Progress Note ---
Date of Service November 15, 2022 Assessment & Plan (1) Osteomyelitis of left foot: Plan: Status post left fifth toe amputation 11/[address] Awaiting biopsy results Patient was on IV vancomycin with dialysis for 2 weeks. Depending on biopsy results, we may put her on p.o. antibiotics Patient is complaining of pain. Started on oxycodone 5 mg p.o. every 6 as needed for longer lasting pain control. Will continue IV Dilaudid for breakthrough pain. (2) Ambulatory dysfunction: Plan: Multifactorial to chronic comorbid disease as well as amputation of toe and current probable osteomyelitis PT/OT evaluation and treatment PT OT recommending rehab (3) DM II (diabetes mellitus, type II), controlled: Plan: Hemoglobin A1c 5.6% on 11/13/2022. This may be unreliable due to patient's chronic end-stage renal disease and hemodialysis Wednesdays and Fridays Basal insulin is currently on hold secondary to n.p.o. status for surgery Continue with sliding scale insulin We will follow [facility]'s ACHS (4) CAD (coronary artery disease): Plan: Continue amlodipine, clopidogrel, Imdur, lisinopril, metoprolol tartrate, and aspirin Patient denies any chest pain or tightness Continue home dose of 40 mg of p.o. furosemide and follow strict ins and outs (5) ESRD (end stage renal disease) on dialysis: Plan: Hemodialysis Tuesday and Tuesday Nephrology is consulted. Appreciate their input (6) HTN (hypertension): Plan: Multi agent therapy at this time Hemodynamically stable Continue outpatient monitoring with cardiology (7) B12 deficiency: Plan: Continue repletion (8) Hypothyroidism: Plan: Continue levothyroxine 125 mcg daily Outpatient management (9) Tobacco abuse: Plan: Patient continues to smoke daily Discussed importance of abstention Patient denies urges for cigarettes at this time Nicotine patch offered and deferred (10) Hyperlipidemia: Plan: Continue ezetimibe Admission and Anticipated Discharge Date Admission Date: November 12, 2022 Subjective Patient complains of pain requiring Dilaudid. Dilaudid controls the pain, however its effect does not stay long enough. The pain is at the surgical site. Review of Systems Review of Systems: All systems reviewed & are unremarkable except as noted in Subjective Physical Exam Physical Exam: General: Awake, conversant Heart: S1, S2/regular rate and rhythm, no murmur rubs or gallops Lungs: Clear to auscultation bilaterally. Normal effort Abdomen: Soft/nontender/nondistended. No hepatosplenomegaly Extremities: No clubbing/cyanosis. No edema. Status post left fifth toe amputation. Wound VAC in place. Behavior: Appropriate, cooperative Results & Data Results & Data Vital Signs (Past 12 Hours) Vital Signs Temp Pulse Pulse Pulse Resp BP BP 11/15/22 15:18 36.7 C 69 16 159/49 H 11/15/22 12:25 36.8 C 66 176/55 H 11/15/22 11:30 58 L 172/64 H 11/15/22 12:35 36.7 C 69 16 162/78 H 11/15/22 10:30 61 161/55 H 11/15/22 11:00 61 157/85 H 11/15/22 10:00 53 L 150/55 H 11/15/22 09:30 53 L 162/66 H 11/15/22 09:17 54 L 163/58 H 11/15/22 09:13 36.8 C 57 L 11/15/22 07:43 36.8 C 60 16 139/68 11/15/22 05:24 36.5 C 60 16 148/61 H Pulse Ox O2 Del Method 11/15/22 15:18 99 Room Air 11/15/22 12:25 11/15/22 11:30 11/15/22 12:35 98 Room Air 11/15/22 10:30 11/15/22 11:00 11/15/22 10:00 11/15/22 09:30 11/15/22 09:17 11/15/22 09:13 11/15/22 07:43 95 Room Air 11/15/22 05:24 96 Room Air Laboratory Results Abnormal lab results 11/14/22 11/14/22 11/15/22 Range/Units 17:16 20:52 08:07 RBC (4.20-5.40) M/uL Hgb (12.0-16.0) g/dl Hct (37.0-47.0) % RDW Std Deviation (36.4-46.3) fL RDW Coeff of Veette (11.5-14.5) % BUN (6-23) mg/dl Creatinine (0.6-1.2) mg/dl BUN/Creatinine Ratio (10-20) POC Glucose 124 H 124 H 101 H (70-99) mg/dl Phosphorus (2.5-4.9) mg/dl Alkaline Phosphatase (34-104) U/L Total Protein (6.0-8.3) gm/dl Albumin (3.4-5.0) gm/dl 11/15/22 11/15/22 11/15/22 Range/Units 08:18 08:18 12:30 RBC 2.75 L (4.20-5.40) M/uL Hgb 9.0 L (12.0-16.0) g/dl Hct 27.0 L (37.0-47.0) % RDW Std Deviation 54.6 H (36.4-46.3) fL RDW Coeff of Evette 15.5 H (11.5-14.5) % BUN 31 H (6-23) mg/dl Creatinine 5.65 H* D (0.6-1.2) mg/dl BUN/Creatinine Ratio 5.5 L (10-20) POC Glucose 122 H (70-99) mg/dl Phosphorus 6.0 H (2.5-4.9) mg/dl Alkaline Phosphatase 114 H (34-104) U/L Total Protein 5.5 L (6.0-8.3) gm/dl Albumin 2.7 L (3.4-5.0) gm/dl PG Care Time/CCT Total # of Minutes Spent Total Time Spent with Patient: Total time spent is greater than 50% in coordination of care (as documented) at patient's floor/unit and/or counseling patient: Coding Level of Care Code 39775 SUB INP/OBS CARE 2/35MIN Diagnoses Osteomyelitis of left foot M86.9 Ambulatory dysfunction R26.2 DM II (diabetes mellitus, type II), controlled E11.9 CAD (coronary artery disease) I25.10 ESRD (end stage renal disease) on dialysis N18.6; Z99.2 HTN (hypertension) I10 B12 deficiency E53.8 Hypothyroidism E03.9 Tobacco abuse Z72.0 Hyperlipidemia E78.5
--- NOTE | 2022-11-15 19:51 | Orthopedic Progress Note ---
Date of Service November 15, 2022 Assessment & Plan (1) Osteomyelitis of left foot: Plan: Patient seen, evaluated, and treated Reviewed wound culture with pin point growth. Awaiting reincubation. Patient would benefit from delayed primary closure tentative date 11/17/22 as add on. Thank you for allowing me to participate in the care of this patient. Admission and Anticipated Discharge Date Admission Date: November 12, 2022 Subjective Patient seen at bedside status post Day #1 Left foot debridement with application of wound vac. Patient is resting comfortably. Wound vac is running 125mmHg continuous. Nursing has had to reinforce vac seal with Tegaderm. Review of Systems Review of Systems: All systems reviewed & are unremarkable except as noted in Subjective Physical Exam Physical Exam: Constitutional: cooperative and comfortable Eyes: normal visual todd by confrontation Neck: normal visual inspection and trachea midline Respiratory: normal respiratory effort Cardiovascular: Rate/Rhythm: regular rate and regular rhythm Musculoskeletal: Extremities: + amputation noted (Left fifth toe) Skin: + ulcer Neurologic: moves all extremities (Decreased epicritic sensation) Psychiatric: Orientation: alert and oriented x 3 Results & Data Vital Signs (Past 12 Hours) Vital Signs Temp Pulse Pulse Pulse Resp BP BP 11/15/22 15:18 36.7 C 69 16 159/49 H 11/15/22 12:25 36.8 C 66 176/55 H 11/15/22 11:30 58 L 172/64 H 11/15/22 12:35 36.7 C 69 16 162/78 H 11/15/22 10:30 61 161/55 H 11/15/22 11:00 61 157/85 H 11/15/22 10:00 53 L 150/55 H 11/15/22 09:30 53 L 162/66 H 11/15/22 09:17 54 L 163/58 H 11/15/22 09:13 36.8 C 57 L Pulse Ox O2 Del Method 11/15/22 15:18 99 Room Air 11/15/22 12:25 11/15/22 11:30 11/15/22 12:35 98 Room Air 11/15/22 10:30 11/15/22 11:00 11/15/22 10:00 11/15/22 09:30 11/15/22 09:17 11/15/22 09:13 Diagnostic Findings [facility] [address] [place] [address] / Director: Hermilo Cabral M.D. Clinical Laboratory Report Name: SUMMERSKENYETTA Acct: [id number] Status: ADM IN : 1960 [facility] Date: 11/12/22 Age: 62 Sex: F Dis Date: Loc: Medical/Surgical/Ortho [address] [place] [address]/Bed: N381-1 Spec: [id number] Collected: 11/14/22 Received: 11/14/[address]: Yong Dias, DPM, MS Copy To: Albaro Franks MD Source: Toe,Left Fifth OV Order: Ordered: Aer/Magali Cult/Sm Comments: Comment Proximal phalanx of fifth left: for aerobic, anaer Procedure Result Verified Site Gram Stain Final 11/14/22 Gram Stain Result Rare Polys Rare Gram Positive Cocci Aero/Magali Cult Preliminary 11/15/22-1099 Pin-point growth present, reincubating. Name: KENYETTA SUMMERS : 1960 PAGE 1 Printed: 11/15/221948 END OF REPORT
[2022-11-15] MEDS: oxyCODONE HCL IR 5 MG TAB (IMMEDIATE RELEASE) PO PRN (20:19)
[2022-11-15] MEDS: ISOSORBIDE MONO EXTENDED REL 30 MG TABCR PO SCH (22:07)
[2022-11-15] MEDS: ATORVASTATIN 40 MG TAB PO SCH (22:07)
[2022-11-15] MEDS: ZOLPIDEM TARTRATE 5 MG TAB PO SCH (22:16)
[2022-11-16] MEDS: HYDROmorphone INJ 0.5 MG/0.5 ML SYR IV PRN ×3 (05:49→20:27)
[2022-11-16] MEDS: LEVOTHYROXINE SODIUM 125 MCG TABLET PO SCH (07:08)
[2022-11-16] MEDS: oxyCODONE HCL IR 5 MG TAB (IMMEDIATE RELEASE) PO PRN ×2 (08:27→16:09)
[2022-11-16] MEDS: lisinopril 40 MG TAB PO SCH (08:28)
[2022-11-16] MEDS: allopurinoL 100 MG TAB PO SCH (08:28)
[2022-11-16] MEDS: cloNIDine HCL 0.1 MG TAB PO SCH (08:29)
[2022-11-16] MEDS: amLODIPine BESYLATE 5 MG TAB PO SCH (08:29)
[2022-11-16] MEDS: FUROSEMIDE 40 MG TAB PO SCH (08:29)
[2022-11-16] MEDS: METOPROLOL TARTRATE 50 MG TAB PO SCH ×2 (08:30→20:26)
[2022-11-16] MEDS: PANTOprazole 40 MG TAB PO SCH (08:30)
[2022-11-16] MEDS: EZETIMIBE 10 MG TABLET PO SCH (08:31)
[2022-11-16] MEDS: CLOPIDOGREL BISULFATE 75 MG TAB PO SCH (08:31)
[2022-11-16] MEDS: NEPHROCAPS PO SCH (08:31)
[2022-11-16] MEDS: CHOLECALCIFEROL 1,000 UNITS 25 MCG TAB PO SCH (08:31)
[2022-11-16] MEDS: ASPIRIN 81 MG ECTAB PO SCH (08:31)
[2022-11-16] MEDS: HEPARIN SOD 5,000 UNIT/0.5 ML VIAL SQ SCH ×2 (08:32→20:26)
[2022-11-16] MEDS: NICOTINE 21 MG/24 HR TDSY TD SCH (08:32)
[2022-11-16 08:45] LABS: Albumin Level 2.6 gm/dl (3.4-5.0); BUN Creatinine Ratio 4.2 (10-20); Calcium 8.6 mg/dl (8.6-10.3); Creatinine Clr Calc Pharmacy 13.6 ml/min; Est GFR (African American) 14.1 ml/min; Est GFR (Non-African American) 12.1 ml/min; Phosphorus 3.7 mg/dl (2.5-4.9); Potassium 4.5 mmol/L (3.5-5.1)
[2022-11-16] MEDS: INSULIN ASPART PER UNIT CHARGE SC SCH ×4 (09:00→21:45)
[2022-11-16] MEDS: SEVELAMER HCL 800 MG TABLET PO SCH ×4 (09:34→17:49)
--- NOTE | 2022-11-16 10:43 | Nephrology Progress Note ---
Date of Service November 16, 2022 Assessment & Plan (1) ESRD (end stage renal disease) on dialysis: Plan: HD MWF. Completed shortened treatment yesterday with adequate clearance and UF. Electrolytes controlled. Volume status acceptable. Next HD will be scheduled for tomorrow. AVF functioning well. Medications appropriately dosed for IHD. (2) HTN (hypertension): Plan: Volume status acceptable. Renal diet. BP acceptable. Continue lisinopril, clonidine, metoprolol, Imdur, and amlodipine per home Rx. (3) Anemia: Plan: s/p 1 unit PRBC transfusion support on 11/12 prior to admission. H/H stable. No melena or hematochezia. Epogen 75918 units provided with HD yesterday. (4) Weakness: Plan: Evaluating options for rehab post discharge. (5) Osteomyelitis: Plan: POD # 2 s/p amputation by Dr. Dias. Wound care following. Wound vac to be changed today. Plan Admission and Anticipated Discharge Date Admission Date: November 12, 2022 Subjective No acute events overnight. Jacqui was resting comfortably in bed this AM. She reports intermittent severe pain in her foot. This is reasonably controlled with pain medications. Wound vac to be changed. No fevers or chills. Evaluating options for rehab post discharge. Expressed interest in [facility] in [place]. Tolerated HD well yesterday. Volume status controlled. Breathing comfortably. Review of Systems Review of Systems: All systems reviewed & are unremarkable except as noted in HPI & below Physical Exam Constitutional: WD/WN, vitals as above no acute distress Eyes: + anicteric sclerae Neck: normal visual inspection Respiratory: no respiratory distress Auscultation: lungs clear to auscultation bilaterally Cardiovascular: Rate/Rhythm: regular rate and regular rhythm Heart Sounds: normal S1 and normal S2 Extremities: + AV fistula (RT BC AVF with thrill and bruit.); no edema Skin: no rashes, warm and dry Neurologic: no focal motor deficits Psychiatric: Orientation: alert and oriented x 3 Affect: euthymic affect Results & Data Vital Signs (Past 12 Hours) Vital Signs Temp Pulse Resp BP Pulse Ox O2 Del Method 11/16/22 07:39 36.7 C 64 16 169/61 H 97 Room Air Laboratory Results Laboratory Results - last 24 hr 11/15/22 11/15/22 11/15/22 12:30 17:01 20:38 Sodium Potassium Chloride Carbon Dioxide Anion Gap BUN Creatinine Est Cr Clr Drug Dosing Est GFR ( Amer) Est GFR (Non-Af Amer) BUN/Creatinine Ratio Glucose POC Glucose 122 H 105 H 104 H Calcium Phosphorus Albumin 11/16/22 11/16/22 06:46 07:53 Sodium 137 Potassium 4.5 Chloride 100 Carbon Dioxide 31 Anion Gap 6 BUN 16 Creatinine 3.79 H D Est Cr Clr Drug Dosing 13.6 Est GFR ( Amer) 14.1 Est GFR (Non-Af Amer) 12.1 BUN/Creatinine Ratio 4.2 L Glucose 71 POC Glucose 87 Calcium 8.6 Phosphorus 3.7 D Albumin 2.6 L PG Care Time/CCT Total # of Minutes Spent Total Time Spent with Patient: Total time spent is greater than 50% in coordination of care (as documented) at patient's floor/unit and/or counseling patient: Coding Level of Care Code 28784 SUB INP/OBS CARE 3/50MIN Diagnoses ESRD (end stage renal disease) on dialysis N18.6; Z99.2 HTN (hypertension) I10 Anemia D64.9 Weakness R53.1 Osteomyelitis M86.9 Laterality: left Osteomyelitis location: foot Osteomyelitis type: unspecified type (5) Osteomyelitis Laterality: left Osteomyelitis location: foot Osteomyelitis type: unspecified type Qualified Code(s): M86.9 - Osteomyelitis, unspecified
--- NOTE | 2022-11-16 15:45 | Hospitalist Progress Note ---
Date of Service November 16, 2022 Assessment & Plan (1) Osteomyelitis of left foot: Plan: Status post left fifth toe amputation 11/[address] Awaiting biopsy results Patient was on IV vancomycin with dialysis for 2 weeks. Depending on biopsy results, we may put her on p.o. antibiotics Patient is complaining of pain. Increased oxycodone from 5 mg to 10 mg p.o. every 6 as needed. Will continue IV Dilaudid for breakthrough pain. Podiatry considering taking her back to the OR 11/17. (2) Ambulatory dysfunction: Plan: Multifactorial to chronic comorbid disease as well as amputation of toe and current probable osteomyelitis PT/OT evaluation and treatment PT OT recommending rehab (3) DM II (diabetes mellitus, type II), controlled: Plan: Hemoglobin A1c 5.6% on 11/13/2022. This may be unreliable due to patient's chronic end-stage renal disease and hemodialysis Wednesdays and Fridays Basal insulin is currently on hold secondary to n.p.o. status for surgery Continue with sliding scale insulin We will follow [facility]'s ACHS (4) CAD (coronary artery disease): Plan: Continue amlodipine, clopidogrel, Imdur, lisinopril, metoprolol tartrate, and aspirin Patient denies any chest pain or tightness Continue home dose of 40 mg of p.o. furosemide and follow strict ins and outs (5) ESRD (end stage renal disease) on dialysis: Plan: Hemodialysis Tuesday and Tuesday Nephrology is consulted. Appreciate their input (6) HTN (hypertension): Plan: Multi agent therapy at this time Hemodynamically stable Continue outpatient monitoring with cardiology (7) B12 deficiency: Plan: Continue repletion (8) Hypothyroidism: Plan: Continue levothyroxine 125 mcg daily Outpatient management (9) Tobacco abuse: Plan: Patient continues to smoke daily Discussed importance of abstention Patient denies urges for cigarettes at this time Nicotine patch offered and deferred (10) Hyperlipidemia: Plan: Continue ezetimibe Admission and Anticipated Discharge Date Admission Date: November 12, 2022 Subjective Patient feels well. Other than pain at the surgical site, no complaints. She says that the oxycodone 5 mg is not doing much to control the pain. She would like to try a higher dose. Review of Systems Review of Systems: All systems reviewed & are unremarkable except as noted in Subjective Physical Exam Physical Exam: General: Awake, conversant Heart: S1, S2/regular rate and rhythm, no murmur rubs or gallops Lungs: Clear to auscultation bilaterally. Normal effort Abdomen: Soft/nontender/nondistended. No hepatosplenomegaly Extremities: No clubbing/cyanosis. No edema. Status post left fifth toe amputation. Wound VAC in place. Behavior: Appropriate, cooperative Results & Data Results & Data Vital Signs (Past 12 Hours) Vital Signs Temp Pulse Resp BP Pulse Ox O2 Del Method 11/16/22 09:15 Room Air 11/16/22 07:39 36.7 C 64 16 169/61 H 97 Room Air PG Care Time/CCT Total # of Minutes Spent Total Time Spent with Patient: Total time spent is greater than 50% in coordination of care (as documented) at patient's floor/unit and/or counseling patient: Coding Level of Care Code 17027 SUB INP/OBS CARE 2/35MIN Diagnoses Osteomyelitis of left foot M86.9 Ambulatory dysfunction R26.2 DM II (diabetes mellitus, type II), controlled E11.9 CAD (coronary artery disease) I25.10 ESRD (end stage renal disease) on dialysis N18.6; Z99.2 HTN (hypertension) I10 B12 deficiency E53.8 Hypothyroidism E03.9 Tobacco abuse Z72.0 Hyperlipidemia E78.5
[2022-11-16] MEDS: ISOSORBIDE MONO EXTENDED REL 30 MG TABCR PO SCH (20:26)
[2022-11-16] MEDS: ATORVASTATIN 40 MG TAB PO SCH (20:26)
[2022-11-16] MEDS: ZOLPIDEM TARTRATE 5 MG TAB PO SCH (20:43)
--- NOTE | 2022-11-16 21:38 | Orthopedic Progress Note ---
Date of Service November 16, 2022 Assessment & Plan (1) Osteomyelitis of left foot: Plan: Patient seen, evaluated, and treated Reviewed wound culture with pin point growth. Awaiting re-incubation results. Patient scheduled for delayed primary closure 11/17/22 as add on. Thank you for allowing me to participate in the care of this patient. Admission and Anticipated Discharge Date Admission Date: November 12, 2022 Subjective Patient seen at bedside resting comfortably. Patient is status post left foot wound excision DOS: 11/14/22. Physical Exam Physical Exam: Constitutional: cooperative and comfortable Eyes: normal visual todd by confrontation Neck: normal visual inspection and trachea midline Respiratory: normal respiratory effort Cardiovascular: Rate/Rhythm: regular rate and regular rhythm Musculoskeletal: Extremities: + amputation noted (Left fifth toe) Skin: + ulcer Neurologic: moves all extremities (Decreased epicritic sensation) Psychiatric: Orientation: alert and oriented x 3 Results & Data Vital Signs (Past 12 Hours) Vital Signs Temp Pulse Resp BP Pulse Ox O2 Del Method 11/16/22 20:22 36.8 C 60 20 159/77 H 98 Room Air 11/16/22 15:46 36.9 C 60 16 152/69 H 98 Room Air
[2022-11-17] MEDS: LEVOTHYROXINE SODIUM 125 MCG TABLET PO SCH (05:47)
[2022-11-17] MEDS: HYDROmorphone INJ 0.5 MG/0.5 ML SYR IV PRN ×2 (05:47→19:32)
--- NOTE | 2022-11-17 08:06 | Hospitalist Progress Note ---
Date of Service November 17, 2022 Assessment & Plan (1) Osteomyelitis of left foot: Plan: Wound cultures 10/19/22 in [place] grew Staph pseudintermedius and Enterococcus faecalis both sensitive to vancomycin Patient was on IV vancomycin with dialysis for 2 weeks, completed 11/12/22 Presented to hospital for difficulty ambulating and deconditioning 2/2 foot wound; no evidence of systemic infection CT with osteomyelitis of residual left fifth proximal phalanx S/p left fifth toe amputation 11/14, for return to OR 11/17 for delayed primary closure Continue oxycodone 10 mg p.o. every 6 as needed, with IV Dilaudid for breakthrough pain In discussion with Dr. Dias, he feels that he achieved source control and IV abx should not be necessary, but will reassess during surgery today (2) Ambulatory dysfunction: Plan: Multifactorial to chronic comorbid disease as well as amputation of toe and osteomyelitis PT/OT recommending rehab on discharge (3) DM II (diabetes mellitus, type II), controlled: Plan: Hemoglobin A1c 5.6% on 11/13/2022 Basal insulin is currently on hold secondary to n.p.o. status for surgery Continue with sliding scale insulin (4) CAD (coronary artery disease): Plan: Continue amlodipine, clopidogrel, Imdur, lisinopril, metoprolol tartrate, and aspirin Patient denies any chest pain or tightness Continue home dose of 40 mg of p.o. furosemide and follow strict I/Os (5) ESRD (end stage renal disease) on dialysis: Plan: Hemodialysis MWF Nephrology consulted while admitted (6) HTN (hypertension): Plan: Hemodynamically stable, continue home meds (7) B12 deficiency: Plan: Continue repletion (8) Hypothyroidism: Plan: Continue levothyroxine 125 mcg daily (9) Tobacco abuse: Plan: Patient continues to smoke daily, smoking cessation has been discussed this admission Patient denies urges for cigarettes at this time, nicotine patches if desired (10) Hyperlipidemia: Plan: Continue ezetimibe Plan OR today by Dr. Dias as add on, with ultimately plan for PT and OT following for dispo planning, anticipate need for rehab on discharge Admission and Anticipated Discharge Date Admission Date: November 12, 2022 Subjective No acute events overnight. No complaints other than pain at surgical site. No chest pain or SOB. Review of Systems Review of Systems: All systems reviewed & are unremarkable except as noted in Subjective Physical Exam Constitutional: WD/WN, vitals as above Musculoskeletal: left foot with wound vac in place right plantar foot with 1cm dark lesion, nontender Skin: no rashes, warm and dry Psychiatric: Orientation: alert and oriented x 3 Results & Data Results & Data Vital Signs (Past 12 Hours) Vital Signs Temp Pulse Resp BP Pulse Ox O2 Del Method 11/17/22 07:55 164/64 H 11/17/22 07:00 36.9 C 61 16 182/68 H 96 Room Air 11/16/22 20:22 36.8 C 60 20 159/77 H 98 Room Air PG Care Time/CCT Total # of Minutes Spent Total Time Spent with Patient: Total time spent is greater than 50% in coordination of care (as documented) at patient's floor/unit and/or counseling patient: Coding Level of Care Code 89365 SUB INP/OBS CARE 3/50MIN Diagnoses Osteomyelitis of left foot M86.9 Ambulatory dysfunction R26.2 DM II (diabetes mellitus, type II), controlled E11.9 CAD (coronary artery disease) I25.10 ESRD (end stage renal disease) on dialysis N18.6; Z99.2 HTN (hypertension) I10 B12 deficiency E53.8 Hypothyroidism E03.9 Tobacco abuse Z72.0 Hyperlipidemia E78.5
[2022-11-17] MEDS: PANTOprazole 40 MG TAB PO SCH (08:42)
[2022-11-17] MEDS: FUROSEMIDE 40 MG TAB PO SCH (08:42)
[2022-11-17] MEDS: METOPROLOL TARTRATE 50 MG TAB PO SCH ×2 (08:42→19:36)
[2022-11-17] MEDS: amLODIPine BESYLATE 5 MG TAB PO SCH (08:43)
[2022-11-17] MEDS: lisinopril 40 MG TAB PO SCH (08:43)
[2022-11-17 09:43] LABS: Basophils # (auto) 0.03 K/uL (0-0.2); Basophils % (auto) 0.6 %; Eosinophils # (auto) 0.06 K/uL (0-0.50); Eosinophils % (auto) 1.3 %; Hematocrit (blood only) 27.5 % (37.0-47.0); Immature Granulocytes # (auto) 0.01 K/uL (0.01-0.20); Immature Granulocytes % (auto) 0.2 %; Lymphocytes % (auto) 29.4 %; Mean Corpuscular Hemoglobin 32.4 pg (25.0-34.0); Mean Corpuscular Hgb Conc 32.7 g/dL (32.0-36.0); Mean Corpuscular Volume 98.9 fL (80.0-100.0); Mean Platelet Volume 11.5 fL (9.4-12.4); Monocytes # (auto) 0.38 K/uL (0.11-0.59); Neutrophils # (auto) 2.88 K/uL (1.40-6.50); Neutrophils % (auto) 60.5 %; Platelet Count 158 K/uL (130-400); RDW Coefficient of Variation 14.7 % (11.5-14.5); RDW Standard Deviation 53.9 fL (36.4-46.3); Red Blood Count 2.78 M/uL (4.20-5.40); White Blood Count 4.76 K/ul (4.8-10.8)
[2022-11-17] MEDS: INSULIN ASPART PER UNIT CHARGE SC SCH ×4 (10:13→21:30)
[2022-11-17] MEDS: SEVELAMER HCL 800 MG TABLET PO SCH ×3 (10:13→18:49)
[2022-11-17] MEDS: CLOPIDOGREL BISULFATE 75 MG TAB PO SCH (10:14)
[2022-11-17] MEDS: allopurinoL 100 MG TAB PO SCH (10:14)
[2022-11-17] MEDS: ASPIRIN 81 MG ECTAB PO SCH (10:14)
[2022-11-17] MEDS: CHOLECALCIFEROL 1,000 UNITS 25 MCG TAB PO SCH (10:14)
[2022-11-17] MEDS: HEPARIN SOD 5,000 UNIT/0.5 ML VIAL SQ SCH ×2 (10:15→19:35)
[2022-11-17] MEDS: NICOTINE 21 MG/24 HR TDSY TD SCH (10:15)
[2022-11-17] MEDS: NEPHROCAPS PO SCH (10:15)
[2022-11-17] MEDS: EZETIMIBE 10 MG TABLET PO SCH (10:15)
[2022-11-17 10:21] LABS: BUN Creatinine Ratio 4.1 (10-20); Calcium 8.6 mg/dl (8.6-10.3); Creatinine Clr Calc Pharmacy 10.1 ml/min; Est GFR (African American) 9.8 ml/min; Est GFR (Non-African American) 8.5 ml/min; Phosphorus 4.5 mg/dl (2.5-4.9); Potassium 4.7 mmol/L (3.5-5.1)
--- NOTE | 2022-11-17 11:40 | Nephrology Progress Note ---
Date of Service November 17, 2022 Assessment & Plan (1) ESRD (end stage renal disease) on dialysis: Plan: HD MWF. Orders for HD today entered into the EHR and reviewed with corporate driver. Tolerating treatment well. Qb at goal. Clearance acceptable. BP slightly elevated. UF goal 2+ L as tolerated. AVF functioning well. Medications appropriately dosed for IHD. (2) HTN (hypertension): Plan: Volume status acceptable. Renal diet. BP acceptable. Continue lisinopril, clonidine, metoprolol, Imdur, and amlodipine per home Rx. (3) Anemia: Plan: s/p 1 unit PRBC transfusion support on 11/12 prior to admission. H/H stable. No melena or hematochezia. Epogen 82127 units provided with HD 11/15. (4) Weakness: Plan: Evaluating options for rehab post discharge. (5) Osteomyelitis: Plan: POD # 3 s/p amputation by Dr. Dias. Returning to the OR today for wound vac removal and closure. Plan Admission and Anticipated Discharge Date Admission Date: November 12, 2022 Subjective No acute events overnight. Pain controlled. No fevers or chills. Jacqui was seen and evaluated during hemodialysis today. She is tolerating treatment well. Review of Systems Review of Systems: All systems reviewed & are unremarkable except as noted in HPI & below Physical Exam Constitutional: WD/WN, vitals as above no acute distress Eyes: + anicteric sclerae Neck: normal visual inspection Respiratory: no respiratory distress Auscultation: lungs clear to auscultation bilaterally Cardiovascular: Rate/Rhythm: regular rate and regular rhythm Heart Sounds: normal S1 and normal S2 Extremities: + AV fistula (RT BC AVF with thrill and bruit.); no edema Skin: no rashes, warm and dry Neurologic: no focal motor deficits Psychiatric: Orientation: alert and oriented x 3 Affect: euthymic affect Results & Data Vital Signs (Past 12 Hours) Vital Signs Temp Pulse Pulse Resp BP BP Pulse Ox 11/17/22 11:00 64 171/65 H 11/17/22 10:30 58 L 166/60 H 11/17/22 10:00 54 L 162/55 H 11/17/22 09:45 56 L 166/64 H 11/17/22 07:55 164/64 H 11/17/22 07:00 36.9 C 61 16 182/68 H 96 O2 Del Method 11/17/22 11:00 11/17/22 10:30 11/17/22 10:00 11/17/22 09:45 11/17/22 07:55 11/17/22 07:00 Room Air Laboratory Results Laboratory Results - last 24 hr 11/16/22 11/16/22 11/16/22 11:57 17:09 20:34 WBC RBC Hgb Hct MCV MCH MCHC RDW Std Deviation RDW Coeff of Evette Plt Count MPV Immature Gran % (Auto) Neut % (Auto) Lymph % (Auto) Reeves % (Auto) Eos % (Auto) Baso % (Auto) Neut # (Auto) Lymph # (Auto) Reeves # (Auto) Eos # (Auto) Baso # (Auto) Immature Gran # (Auto) Sodium Potassium Chloride Carbon Dioxide Anion Gap BUN Creatinine Est Cr Clr Drug Dosing Est GFR ( Amer) Est GFR (Non-Af Amer) BUN/Creatinine Ratio Glucose POC Glucose 127 H 80 106 H Calcium Phosphorus 11/17/22 11/17/22 11/17/22 06:07 08:51 08:51 WBC 4.76 L RBC 2.78 L Hgb 9.0 L Hct 27.5 L MCV 98.9 MCH 32.4 MCHC 32.7 RDW Std Deviation 53.9 H RDW Coeff of Evette 14.7 H Plt Count 158 MPV 11.5 Immature Gran % (Auto) 0.2 Neut % (Auto) 60.5 Lymph % (Auto) 29.4 Reeves % (Auto) 8.0 Eos % (Auto) 1.3 Baso % (Auto) 0.6 Neut # (Auto) 2.88 Lymph # (Auto) 1.40 Reeves # (Auto) 0.38 Eos # (Auto) 0.06 Baso # (Auto) 0.03 Immature Gran # (Auto) 0.01 Sodium 136 Potassium 4.7 Chloride 100 Carbon Dioxide 29 Anion Gap 7 BUN 21 Creatinine 5.11 H* D Est Cr Clr Drug Dosing 10.1 Est GFR ( Amer) 9.8 Est GFR (Non-Af Amer) 8.5 BUN/Creatinine Ratio 4.1 L Glucose 77 POC Glucose 78 Calcium 8.6 Phosphorus 4.5 PG Care Time/CCT Total # of Minutes Spent Total Time Spent with Patient: Total time spent is greater than 50% in coordination of care (as documented) at patient's floor/unit and/or counseling patient: Coding Level of Care Code 32263 SUB INP/OBS CARE MIN Diagnoses ESRD (end stage renal disease) on dialysis N18.6; Z99.2 HTN (hypertension) I10 Anemia D64.9 Weakness R53.1 Osteomyelitis M86.9 Laterality: left Osteomyelitis location: foot Osteomyelitis type: unspecified type (5) Osteomyelitis Laterality: left Osteomyelitis location: foot Osteomyelitis type: unspecified type Qualified Code(s): M86.9 - Osteomyelitis, unspecified
[2022-11-17] MEDS: oxyCODONE HCL IR 5 MG TAB (IMMEDIATE RELEASE) PO PRN ×2 (12:32→21:26)
--- NOTE | 2022-11-17 13:17 | Pharmacy Report ---
Pharmacy Glycemic Short Note 2 - Date of Service November 17, 2022 - Glycemic Short BSG Results (Last 24 hours): 11/16/22 11/16/22 11/17/22 17:09 20:34 06:07 Glucose POC Glucose 80 106 H 78 11/17/22 11/17/22 08:51 12:29 Glucose 77 POC Glucose 91 OUTPATIENT ANTIDIABETIC REGIMEN: * Toujeo 27 units SQ daily * Humalog SS QID * Trulicity ASSESSMENT: 11/17/22: * BSGs have been consistently below goal for the past several days. Pt has not been receiving any basal insulin and very little Novolog (less than 5 units per day). * Pt had an HD session again today. * Pt has been NPO today for return to OR for wound vac removal and closure. * No changes indicated at this time. from 11/13 * 62 y/o F 83 y/o M admitted for chronic diabetic foot infection and possible osteomyelitis. Patient was recently on IV Vancomycin and potential failed therapy. Also with history of ESRD and chronic Hemodialysis. * Although patient is prescribed above home meds, per med rec notes, she was only taking Humalog insulin prior to admission. * Patient's A1c = 5.6% today. * However, this result is likely somewhat unreliable in ESRD patients d/t interactions between the A1c analyzing technique and high levels of urea in ESRD, reduced RBC life span, iron deficiency anemia, and EPO administration. * Pharmacy consulted last night and patient was ordered Novolog (based on stress of 2) and Lantus but her BSGs have been stable and controlled since admission. So she has not received any insulin so far. * Basal insulin is currently discontinued. Will re-assess and order this if BSG trends up. * Fasting BSG was 110 mg/dl today. Continued Novolog with same parameters. Pre- lunch BSG = 111 mg/dl. * Patient is also currently NPO for bone biopsy tomorrow. PLAN FOR INPATIENT GLYCEMIC CONTROL: * Hold outpatient diabetes medications * Basal insulin * on hold * Bolus insulin * NovoLog per scale ACHS or Q6hrs while NPO * Goal Range: Low 110 mg/dL - High 140 mg/dL * Correction Factor: 40 mg/dL/unit * Nutritional / Prandial insulin per carb ratio of 1 unit per 15 grams CHO consumed
--- NOTE | 2022-11-17 15:18 | Anesthesiology Consultation ---
Date of Service November 17, 2022 Assessment & Plan (1) Encounter for pre-operative examination: Chart Review Chart Review: Acceptable Risk for Surgery and Patient NOT seen in Pre Admission Testing Consults Requested none History Surgery Operation Date: 11/14/22 07:30 Proposed Procedures p left 5th ray amputation(Left) - Yong Dias DPM, MS Operation Date: 11/17/22 10:45 Proposed Procedures p Left Foot Delayed Primary Closure - Yong Dias DPM, MS Height/Weight Height: 5 ft 2 in Weight: 63.4 kg Allergies Allergy/AdvReac Type Severity Reaction Status Date / Time morphine Allergy Severe Hallucinati Unverified 11/12/22 19:08 ng codeine Allergy Intermediate Redness of Unverified 11/12/22 19:08 Skin prednisone Allergy Intermediate Itching Unverified 11/12/22 19:08 Medications Home Medications Medication Instructions Recorded Confirmed Last Taken albuterol sulfate 90 mcg/actuation 1 puff inhalation QID PRN bad cough 11/12/22 11/12/22 Unknown aerosol inhaler allopurinol 100 mg tablet 100 mg PO DAILY 11/12/22 11/12/22 Unknown amitriptyline 100 mg tablet 100 mg PO HS 11/12/22 11/12/22 Unknown amlodipine 2.5 mg tablet 2.5 mg PO DAILY 11/12/22 11/12/22 Unknown ascorbic acid (vitamin C) 500 mg 500 mg PO DAILY 11/12/22 11/12/22 Unknown capsule aspirin 81 mg chewable tablet 81 mg PO DAILY 11/12/22 11/12/22 Unknown atorvastatin 40 mg tablet (Lipitor) 40 mg PO HS 11/12/22 11/12/22 Unknown cholecalciferol (vitamin D3) 50 50 mcg PO DAILY 11/12/22 11/12/22 Unknown mcg (2,000 unit) tablet clonidine HCl 0.1 mg tablet 0.1 mg PO DAILY 11/12/22 11/12/22 Unknown clopidogrel 75 mg tablet 75 mg PO DAILY 11/12/22 11/12/22 Unknown denosumab 60 mg/mL subcutaneous 60 mg subcut Q6M 11/12/22 11/12/22 Unknown syringe (Prolia) docusate sodium 100 mg capsule 100 mg PO DAILY 11/12/22 11/12/22 Unknown (Colace) esomeprazole magnesium 40 mg 40 mg PO DAILY 11/12/22 11/12/22 Unknown capsule,delayed release (Nexium) ezetimibe 10 mg tablet 10 mg PO DAILY 11/12/22 11/12/22 Unknown furosemide 40 mg tablet (Lasix) 40 mg PO DAILY 11/12/22 11/12/22 Unknown gentamicin 0.1 % topical ointment 1 applic topical DAILY foot wound 11/12/22 Unknown insulin lispro 100 unit/mL 0 - 10 sliding scale dose subcut 11/12/22 11/12/22 Unknown subcutaneous pen (Humalog Tempo QID Pen (U-100) Insulin) isosorbide mononitrate 30 mg 30 mg PO HS 11/12/22 11/12/22 Unknown tablet,extended release 24 hr latanoprost 0.005 % eye drops 1 drp ophthalmic (eye) HS 11/12/22 11/12/22 Unknown levothyroxine 125 mcg tablet 125 mcg PO QAM 11/12/22 11/12/22 Unknown lisinopril 40 mg tablet (Zestril) 40 mg PO DAILY 11/12/22 11/12/22 Unknown loratadine 10 mg tablet 10 mg PO DAILY 11/12/22 11/12/22 Unknown melatonin 10 mg capsule 10 mg PO HS 11/12/22 11/12/22 Unknown meloxicam 15 mg tablet 15 mg PO DAILY 11/12/22 11/12/22 Unknown metoprolol tartrate 50 mg tablet See Rx Instructions .Route .COMPLEX 11/12/22 11/12/22 Unknown nitroglycerin 0.4 mg sublingual See Rx Instructions .Route .COMPLEX 11/12/22 11/12/22 Unknown tablet sevelamer carbonate 800 mg tablet 0 mg PO TID 11/12/22 11/12/22 Unknown vit B,C-folic ac 800 mcg-zinc 12.5 1 tab PO DAILY 11/12/22 11/12/22 Unknown mg-selen-D3 2,000 unit-vit E tablet (RenaPlex-D) zolpidem 5 mg tablet (Ambien) 5 mg PO DAILY 11/12/22 11/12/22 Unknown Active Medications Generic Name Dose Route Start Last Admin Trade Name Freq PRN Reason Stop Dose Admin Allopurinol 100 mg 11/13/22 09:00 11/17/22 10:14 Allopurinol 100 Mg Tab PO 12/13/22 08:59 Not Given DAILY SHARIFA Amlodipine Besylate 2.5 mg 11/13/22 09:00 11/17/22 08:43 Amlodipine Besylate 5 Mg Tab PO 12/13/22 08:59 2.5 mg DAILY SHARIFA Administration Aspirin 81 mg 11/13/22 09:00 11/17/22 10:14 Aspirin 81 Mg Ectab PO 12/13/22 08:59 Not Given DAILY SHARIFA Atorvastatin Calcium 40 mg 11/12/22 21:00 11/16/22 20:26 Atorvastatin 40 Mg Tab PO 12/12/22 20:59 40 mg HS SHARIFA Administration Clonidine HCl 0.1 mg 11/13/22 09:00 11/16/22 08:29 Clonidine Hcl 0.1 Mg Tab PO 12/13/22 08:59 0.1 mg [id number] SHARIFA Administration Clopidogrel Bisulfate 75 mg 11/13/22 09:00 11/17/22 10:14 Clopidogrel Bisulfate 75 Mg Tab PO 12/13/22 08:59 Not Given DAILY [facility] Ezetimibe 10 mg 11/13/22 09:00 11/17/22 10:15 Ezetimibe 10 Mg Tablet PO 12/13/22 08:59 Not Given DAILY [facility] Furosemide 40 mg 11/13/22 09:00 11/17/22 08:42 Furosemide 40 Mg Tab PO 12/13/22 08:59 40 mg DAILY SHARIFA Administration Heparin Sodium (Porcine) 5,000 units 11/12/22 21:00 11/17/22 10:15 Heparin Sod 5,000 Unit/0.5 Ml Vial SQ 12/12/22 20:59 Not Given Q12 SHARIFA Hydromorphone HCl 0.5 mg 11/13/22 10:52 11/17/22 05:47 Hydromorphone Inj 0.5 Mg/0.5 Ml Syr IV 11/27/22 10:51 0.5 mg Q4H PRN Administration Pain Insulin Aspart 0 units 11/14/22 16:30 11/17/22 14:41 Insulin Aspart Per Unit Charge SC 12/14/22 16:29 Not Given ACHS SHARIFA Isosorbide Mononitrate 30 mg 11/12/22 21:00 11/16/22 20:26 Isosorbide [place] Extended Rel 30 Mg Tabcr PO 12/12/22 20:59 30 mg HS SHARIFA Administration Levothyroxine Sodium 125 mcg 11/13/22 06:30 11/17/22 05:47 Levothyroxine Sodium 125 Mcg Tablet PO 12/13/22 06:29 125 mcg DAILYBB SHARIFA Administration Lisinopril 40 mg 11/13/22 09:00 11/17/22 08:43 Lisinopril 40 Mg Tab PO 12/13/22 08:59 40 mg DAILY SHARIFA Administration Metoprolol Tartrate 50 mg 11/13/22 09:00 11/17/22 08:42 Metoprolol Tartrate 50 Mg Tab PO 12/13/22 08:59 50 mg QAM SHARIFA Administration Metoprolol Tartrate 100 mg 11/12/22 21:00 11/16/22 20:26 Metoprolol Tartrate 50 Mg Tab PO 12/12/22 20:59 100 mg QPM SHARIFA Administration Miscellaneous 1 each 11/12/22 19:30 11/17/22 10:14 Remove Nicoderm Patch N/A 12/12/22 19:29 Not Given DAILY@0859 [facility] Nicotine 21 mg 11/12/22 19:00 11/17/22 10:15 Nicotine 21 Mg/24 Hr Tdsy TD 12/12/22 18:59 Not Given QAM SHARIFA Oxycodone HCl 10 mg 11/16/22 15:43 11/17/22 12:32 Oxycodone Hcl Ir 5 Mg Tab (Immediate Release) PO 11/29/22 15:46 10 mg Q6 PRN Administration Mild-Mod Pain (Scale 1-6) Pantoprazole Sodium 40 mg 11/13/22 09:00 11/17/22 08:42 Pantoprazole 40 Mg Tab PO 12/13/22 08:59 40 mg DAILY SHARIFA Administration Sevelamer HCl 800 mg 11/16/22 09:00 11/17/22 14:42 Sevelamer Hcl 800 Mg Tablet PO 12/13/22 07:59 Not Given TIDM [facility] Vitamin B Complex/Folic Acid 1 cap 11/13/22 09:00 11/17/22 10:15 Nephrocaps PO 12/13/22 08:59 Not Given DAILY [facility] Vitamin D 2,000 units 11/13/22 09:00 11/17/22 10:14 Cholecalciferol 1,000 Units 25 Mcg Tab PO 12/13/22 08:59 Not Given DAILY SHARIFA Zolpidem Tartrate 5 mg 11/12/22 21:00 11/16/22 20:43 Zolpidem Tartrate 5 Mg Tab PO 12/12/22 20:59 5 mg HS SHARIFA Administration Past Medical History Medical History (Updated 11/17/22 @ 15:19 by Darron Obrien MD) Anemia CAD (coronary artery disease) CHF (congestive heart failure) DM II (diabetes mellitus, type II), controlled ESRD (end stage renal disease) on dialysis HD --. Follows with Dr. Mckeon HTN (hypertension) Hypothyroidism Osteomyelitis of left foot Tobacco abuse Weakness Exercise / Class Metabolic Activity III < 4 Walking/Shop/Light housework Past Surgical History Surgical History S/P drug eluting coronary stent placement 5th toe amputation Past Anesthesia History No Hx of Anesthesia Complications and No Family Hx of Anesthesia Complications Social History Smoking Status: Current every day smoker tobacco type: cigarettes Smoking cigarettes per day: 6 Do You Dip or Chew Tobacco: No Hx Alcohol Use: No Hx Substance Use: No substance use type: does not use Physical Exam Vital Signs Last Vital Signs Temp 36.6 C 11/17/22 15:00 Pulse 60 11/17/22 15:00 Resp 20 11/17/22 15:00 BP 116/72 11/17/22 15:00 Pulse Ox 96 11/17/22 15:00 O2 Del Method Room Air 11/17/22 15:10 O2 Flow Rate 3 11/14/22 08:40 Testing Laboratory Results 11/17/22 08:51 11/17/22 08:51 PT 11.4 Seconds (9.0-12.0) 11/15/22 08:18 INR 1.0 (0.9-1.1) 11/15/22 08:18 Hemoglobin A1c 5.6 % (4.5-5.6) 11/13/22 06:12 Urine Color Yellow 11/14/22 13:09 Urine Appearance Clear (Clear) 11/14/22 13:09 Urine pH 8.0 (4.5-7.5) H 11/14/22 13:09 Ur Specific [place] 1.009 (1.000-1.030) 11/14/22 13:09 Urine Protein 2+ (Negative) H 11/14/22 13:09 Urine Glucose (UA) Negative (Negative) 11/14/22 13:09 Urine Ketones Negative (Negative) 11/14/22 13:09 Urine Nitrite Negative (Negative) 11/14/22 13:09 Ur Leukocyte Esterase Negative (Negative) 11/14/22 13:09 Urine WBC (Auto) 1-5 /hpf (0-5) 11/14/22 13:09 Urine RBC (Auto) 5-10 /hpf (0-4) H 11/14/22 13:09 U Hyaline Cast (Auto) 0 /lpf (0-5) 11/14/22 13:09 U Epithel Cells (Auto) >30 /lpf (0-5) H 11/14/22 13:09 Urine Bacteria (Auto) Negative (Negative) 11/14/22 13:09 11/12/22 14:45 Gram Stain - Final Foot,Left Aerobic and Anaerobic Culture - Final Low counts mixed probable skin microbiota. No further identifications or sensitivities to follow. 11/14/22 08:13 Gram Stain - Final Toe,Left Fifth Aerobic and Anaerobic Culture - Preliminary Low counts mixed probable skin microbiota. 11/12/22 16:25 Aerobic Blood Culture - Preliminary Blood No growth in Aerobic bottle after 48 hours. Anaerobic Blood Culture - Final 11/12/22 15:26 Aerobic Blood Culture - Preliminary Blood No growth in Aerobic bottle after 48 hours. Anaerobic Blood Culture - Preliminary No growth in Anaerobic bottle after 48 hours. 11/17/22 11/17/22 12:29 06:07 POC Glucose 91 78 Electrocardiogram Date: 11/12/22 Findings: + NSR @ (@ 61) and + LVH Chest X-Ray Date: 11/12/22 Findings: + NAD and + atherosclerosis of thoracic aorta
--- NOTE | 2022-11-17 16:01 | History & Physical Bridge Note ---
Date of Service November 17, 2022 History & Physical Bridge Note I have examined the patient, reviewed the History & Physical and in the interval since the performance of the History & Physical I have noted the following changes of clinical significance: no changes noted
[2022-11-17] MEDS ORDERED: ATROPINE SULFATE 0.1 MG/ML 10ML SYR IV PRN (16:06)
[2022-11-17] MEDS ORDERED: ePHEDrine sulfate 50 MG/ML AMP IV PRN (16:06)
[2022-11-17] MEDS ORDERED: ONDANSETRON INJ 2 MG/ML 2 ML VIAL IV PRN (16:06)
[2022-11-17] MEDS ORDERED: fentaNYL citrate PF 100 MCG/2 ML VIAL ONE (16:16)
[2022-11-17] MEDS ORDERED: LIDOCAINE 2% 2 ML VIAL/AMP(20MG/ML) INFIL ONE (16:42)
[2022-11-17] MEDS ORDERED: ETOMIDATE 2 MG/ML 20 ML VIAL IV ONE (16:42)
[2022-11-17] MEDS ORDERED: PROPOFOL IV EMULSION 10 MG/ML 20 ML VIAL IV ONE (16:42)
[2022-11-17] MEDS ORDERED: ceFAZolin 1000MG 1,000 MG/7.5 ML SYR IV ONE (16:47)
[2022-11-17] MEDS ORDERED: ePHEDrine sulfate 50 MG/ML AMP ONE (16:52)
--- NOTE | 2022-11-17 17:02 | Post Operative Brief Note ---
Immediate Post Op Note v1 Date of Surgery November 17, 2022 Pre & Post Diagnosis Operation Date: 11/17/22 10:45 Pre-Op Diagnosis: Diabetic Foot Wound Post-Op Diagnosis: Diabetic Foot Wound I identified the patient and participated in the time-out.: Yes Procedure Operation Date: 11/17/22 10:45 Actual Procedures p Left Foot Delayed Primary Closure(Left) - Yong Dias DPM, MS Surgeon Yong Dias DPM, MS Judicial Reporter None Estimated Blood Loss 2 Findings Consistent with Post-Op Diagnosis Specimens Left foot proximal phalanx bone fifth toe
--- NOTE | 2022-11-17 17:23 | Anesthesiology Progress Note ---
Date of Service November 17, 2022 Anesthesia Post Procedure Vital Signs Vital Signs: Temp Pulse Pulse Pulse Pulse Resp BP 11/17/22 17:20 67 18 11/17/22 17:10 68 20 11/17/22 17:04 36.3 C L 71 16 11/17/22 15:45 37.1 C 75 16 11/17/22 08:30 11/17/22 15:10 11/17/22 15:00 36.6 C 60 20 11/17/22 13:45 36.7 C 73 11/17/22 09:37 37 C 57 L 11/17/22 13:00 71 166/63 H 11/17/22 12:30 70 167/57 H 11/17/22 12:00 70 175/67 H 11/17/22 11:30 64 167/67 H 11/17/22 11:00 64 171/65 H 11/17/22 10:30 58 L 166/60 H 11/17/22 10:00 54 L 162/55 H 11/17/22 09:45 56 L 166/64 H 11/17/22 07:55 11/17/22 07:00 36.9 C 61 16 11/16/22 20:22 36.8 C 60 20 BP Pulse Ox O2 Del Method O2 Flow Rate 11/17/22 17:20 180/61 H 96 Room Air 11/17/22 17:10 160/58 H 97 Room Air 11/17/22 17:04 142/55 H 97 Oxymask 6 11/17/22 15:45 178/79 H 97 Room Air 11/17/22 08:30 Room Air 11/17/22 15:10 Room Air 11/17/22 15:00 116/72 96 Room Air 11/17/22 13:45 194/74 H 11/17/22 09:37 11/17/22 13:00 11/17/22 12:30 11/17/22 12:00 11/17/22 11:30 11/17/22 11:00 11/17/22 10:30 11/17/22 10:00 11/17/22 09:45 11/17/22 07:55 164/64 H 11/17/22 07:00 182/68 H 96 Room Air 11/16/22 20:22 159/77 H 98 Room Air Pain Intensity Left Foot: Pain Intensity: 5 Transfer of Care Handoff Completed per policy Notes Mental Status: alert / awake / arousable Patient Amnestic to Procedure: Yes Nausea / Vomiting: adequately controlled Pain: adequately controlled Airway Patency, RR, SpO2: stable & adequate BP & HR: stable & adequate Hydration State: stable & adequate Anesthetic Complications: no major complications apparent
[2022-11-17] MEDS: fentaNYL citrate PF 100 MCG/2 ML VIAL IV PRN ×2 (17:34→17:39)
[2022-11-17] MEDS: ISOSORBIDE MONO EXTENDED REL 30 MG TABCR PO SCH (19:35)
[2022-11-17] MEDS: ATORVASTATIN 40 MG TAB PO SCH (19:35)
[2022-11-17] MEDS: ZOLPIDEM TARTRATE 5 MG TAB PO SCH (19:36)
--- NOTE | 2022-11-17 21:39 | Operative Report ---
Post Operative Report Pre & Post Diagnosis Operation Date: 11/17/22 10:45 Pre-Op Diagnosis: Diabetic Foot Wound Post-Op Diagnosis: Diabetic Foot Wound I identified the patient and participated in the time-out.: Yes Procedure Operation Date: 11/17/22 10:45 Actual Procedures p Left Foot Delayed Primary Closure(Left) - Yong Dias DPM, MS Surgeon Yong Dias DPM, MS Subway Conductor None Estimated Blood Loss 2 Findings Consistent with Post-Op Diagnosis Diabetic left foot ulcer Specimens None Description of Procedure History of present illness: Patient is a type II diabetic, 62 year old female who is seen for delayed primary closure. Patient recently had left fifth ray resected due to non healing wound and osteomyelitis. Due to infection wound was left open to drain and retention sutures were placed. Soft tissue has no demarcated. All questions answered. Discussed procedure in detail and postoperative recovery. All potential risks, benefits, complications, alternatives, rehab, potential for incomplete relief of symptoms, need for further surgery, DVT, PE, , persistent pain, swelling, scarring, weakness, neurovascular, wound complications and potential for amputations were discussed with patient. Unwanted outcomes such as, but not limited to were reviewed including under correction, overcorrection, return of deformity, infection. All questions were answered. Patient has decided to proceed with procedure as indicated. Preoperative diagnosis: 1.) Diabetic foot wound left Postoperative diagnosis: same Name of operation: 1.) Debridement of left foot wound 2.) Delayed primary closure of surgical wound extensive left foot Surgeon: Dr. Dias Subway Conductor: None Anesthesia: Monitored anesthesia care Hemostasis: pneumatic ankle tourniquet Estimated blood loss: minimal Procedure in detail: Under mild sedation the patient was brought in the operating room placed on the operating table in supine position. A pneumatic calf tourniquet was then placed about the patient's left ankle. Following IV sedation the foot was prepped scrubbed and draped in usual aseptic manner. Attention was then directed to a large surgical deficit of the left foot. The fifth ray has been resected including an excised diabetic foot wound. The wound measures 8 cm x 3 cm x 2.5 cm. The wound bed shows 30% necrotic or non viable tissue well demarcated. Utilizing a sharp, sterile, #15 blade the wound is voided of non viable soft tissue. Excision debridement is carried down to and including muscle and tendon to achieve a healthy wound bed. Lactate ringer was then irrigated low flow into the wound. A plantar rotational skin plasty is utilized in order to gain coverage. At this time wound is closed in layers. Vertical mattress sutures are applied distal to wound as retention sutures utilizing 2-0 nylon. More proximal to wound edges horizontal mattress sutures are applied. Finally wound edges are re-approximated using 3-0 nylon with simple suture technique. Upon completion of the procedure the lateral wound was dressed with sterile dressing consisting of 4 x 4's Catherine Kerlix ABD. The Patient tolerated the procedure and anesthesia well. He was transferred to recovery room vital signs stable and vascular status intact all toes of the left foot following. Following a period of postoperative monitoring the patient will be readmitted to floor with the continuation of all preoperative orders. I attest to the content of the Intraoperative Record and any orders documented therein. Any exceptions are noted below.
[2022-11-18] MEDS: HYDROmorphone INJ 0.5 MG/0.5 ML SYR IV PRN ×4 (02:24→21:53)
[2022-11-18] MEDS: LEVOTHYROXINE SODIUM 125 MCG TABLET PO SCH (05:11)
[2022-11-18] MEDS: oxyCODONE HCL IR 5 MG TAB (IMMEDIATE RELEASE) PO PRN ×3 (05:11→20:36)
[2022-11-18] MEDS: INSULIN ASPART PER UNIT CHARGE SC SCH ×4 (09:30→20:43)
[2022-11-18] MEDS ORDERED: VANCOMYCIN CONSULT ACTIVE PRN (09:41)
[2022-11-18] MEDS ORDERED: VANCOMYCIN HCL 1,250 MG in SODIUM CHLORIDE 0.9% 250 ML IV ONE (09:45)
[2022-11-18] MEDS: SEVELAMER HCL 800 MG TABLET PO SCH ×3 (09:46→18:02)
[2022-11-18] MEDS: HEPARIN SOD 5,000 UNIT/0.5 ML VIAL SQ SCH ×2 (09:46→20:42)
[2022-11-18] MEDS: allopurinoL 100 MG TAB PO SCH (09:46)
[2022-11-18] MEDS: NEPHROCAPS PO SCH (09:47)
[2022-11-18] MEDS: ASPIRIN 81 MG ECTAB PO SCH (09:47)
[2022-11-18] MEDS: EZETIMIBE 10 MG TABLET PO SCH (09:47)
[2022-11-18] MEDS: CHOLECALCIFEROL 1,000 UNITS 25 MCG TAB PO SCH (09:47)
[2022-11-18] MEDS: CLOPIDOGREL BISULFATE 75 MG TAB PO SCH (09:47)
[2022-11-18] MEDS: amLODIPine BESYLATE 5 MG TAB PO SCH (09:49)
[2022-11-18] MEDS: cloNIDine HCL 0.1 MG TAB PO SCH (09:50)
[2022-11-18] MEDS: PANTOprazole 40 MG TAB PO SCH (09:50)
[2022-11-18] MEDS: lisinopril 40 MG TAB PO SCH (09:51)
[2022-11-18] MEDS: FUROSEMIDE 40 MG TAB PO SCH (09:51)
[2022-11-18] MEDS: METOPROLOL TARTRATE 50 MG TAB PO SCH ×2 (09:51→20:42)
[2022-11-18] MEDS: NICOTINE 21 MG/24 HR TDSY TD SCH (09:52)
--- NOTE | 2022-11-18 11:16 | Nephrology Progress Note ---
Date of Service November 18, 2022 Assessment & Plan (1) ESRD (end stage renal disease) on dialysis: Plan: HD MWF. Adequate clearance and UF. Volume status controlled. Next treatment tomorrow. AVF functioning well. Medications appropriately dosed for IHD. (2) HTN (hypertension): Plan: Volume status acceptable. Renal diet. BP acceptable. Continue lisinopril, clonidine, metoprolol, Imdur, and amlodipine per home Rx. (3) Anemia: Plan: s/p 1 unit PRBC transfusion support on 11/12 prior to admission. H/H stable. No melena or hematochezia. Epogen 93253 units provided with HD 11/15. (4) Weakness: Plan: Evaluating options for rehab post discharge. (5) Osteomyelitis: Plan: POD # 4 s/p amputation by Dr. Dias. Returned to the OR yesteray for wound vac removal and closure. Plan Admission and Anticipated Discharge Date Admission Date: November 12, 2022 Subjective No acute events overnight. Pain at surgical site reasonably controlled with pain medications. No fevers or chills. Tolerated HD well yesterday. No complications with treatment. Review of Systems Review of Systems: All systems reviewed & are unremarkable except as noted in HPI & below Physical Exam Constitutional: WD/WN, vitals as above no acute distress Eyes: + anicteric sclerae Neck: normal visual inspection Respiratory: no respiratory distress Auscultation: lungs clear to auscultation bilaterally Cardiovascular: Rate/Rhythm: regular rate and regular rhythm Heart Sounds: normal S1 and normal S2 Extremities: + AV fistula (RT BC AVF with thrill and bruit.); no edema Skin: no rashes, warm and dry Neurologic: no focal motor deficits Psychiatric: Orientation: alert and oriented x 3 Affect: euthymic affect Results & Data Vital Signs (Past 12 Hours) Vital Signs Temp Pulse Resp BP Pulse Ox O2 Del Method 11/18/22 07:39 Room Air 11/18/22 07:00 36.8 C 69 16 147/50 H 98 Room Air 11/18/22 03:54 36.8 C 65 18 170/60 H 96 Room Air Laboratory Results Laboratory Results - last 24 hr 11/17/22 11/17/22 11/17/22 12:29 17:07 17:55 POC Glucose 91 88 86 11/17/22 11/18/22 11/18/22 20:54 08:16 08:17 POC Glucose 77 67 L* 65 L* 11/18/22 08:39 POC Glucose 77 PG Care Time/CCT Total # of Minutes Spent Total Time Spent with Patient: Total time spent is greater than 50% in coordination of care (as documented) at patient's floor/unit and/or counseling patient: Coding Level of Care Code 70324 SUB INP/OBS CARE 3/50MIN Diagnoses ESRD (end stage renal disease) on dialysis N18.6; Z99.2 HTN (hypertension) I10 Anemia D64.9 Weakness R53.1 Osteomyelitis M86.9 Laterality: left Osteomyelitis location: foot Osteomyelitis type: unspecified type (5) Osteomyelitis Laterality: left Osteomyelitis location: foot Osteomyelitis type: unspecified type Qualified Code(s): M86.9 - Osteomyelitis, unspecified
--- NOTE | 2022-11-18 12:58 | Pharmacy Report ---
Pharmacy Glycemic Short Note 2 - Date of Service November 18, 2022 - Glycemic Short BSG Results (Last 24 hours): 11/17/22 11/17/22 11/17/22 17:07 17:55 20:54 POC Glucose 88 86 77 11/18/22 11/18/22 11/18/22 08:16 08:17 08:39 POC Glucose 67 L* 65 L* 77 11/18/22 12:13 POC Glucose 163 H OUTPATIENT ANTIDIABETIC REGIMEN: * Toujeo 27 units SQ daily * Humalog SS QID * Trulicity ASSESSMENT: 11/18/22: * BSGs remained lower end of goal with no insulin on board yesterday * Fasting 65 mg/dL this morning- continue to hold basal * Novolog carb ratio was loosened; lunch BSG 163 mg/dL (no novolog with b reakfast) 11/17/22: * BSGs have been consistently below goal for the past several days. Pt has not been receiving any basal insulin and very little Novolog (less than 5 units per day). * Pt had an HD session again today. * Pt has been NPO today for return to OR for wound vac removal and closure. * No changes indicated at this time. from 11/13 * 62 y/o F 83 y/o M admitted for chronic diabetic foot infection and possible osteomyelitis. Patient was recently on IV Vancomycin and potential failed therapy. Also with history of ESRD and chronic Hemodialysis. * Although patient is prescribed above home meds, per med rec notes, she was only taking Humalog insulin prior to admission. * Patient's A1c = 5.6% today. * However, this result is likely somewhat unreliable in ESRD patients d/t interactions between the A1c analyzing technique and high levels of urea in ESRD, reduced RBC life span, iron deficiency anemia, and EPO administration. * Pharmacy consulted last night and patient was ordered Novolog (based on stress of 2) and Lantus but her BSGs have been stable and controlled since admission. So she has not received any insulin so far. * Basal insulin is currently discontinued. Will re-assess and order this if BSG trends up. * Fasting BSG was 110 mg/dl today. Continued Novolog with same parameters. Pre- lunch BSG = 111 mg/dl. * Patient is also currently NPO for bone biopsy tomorrow. PLAN FOR INPATIENT GLYCEMIC CONTROL: * Hold outpatient diabetes medications * Basal insulin * on hold * Bolus insulin * NovoLog per scale ACHS or Q6hrs while NPO * Goal Range: Low 110 mg/dL - High 140 mg/dL * Correction Factor: 40 mg/dL/unit * Nutritional / Prandial insulin per carb ratio of 1 unit per 18 grams CHO consumed
--- NOTE | 2022-11-18 13:02 | Pharmacy Report ---
Pharmacy [facility] Short Note - Date of Service November 18, 2022 - Assessment & Plan Assessment 62 year old F receiving vancomycin for treatment of diabetic foot wound- post OR excision. Per hospitalist would like to treat for 5 days- previous culture data with E. faecalis and Staph pseudintermedius. Patient is HD schedule MWF, will dose by levels. Day # 1/5 of antimicrobial therapy Plan Vancomycin * 20 mg/kg 1250 mg x 1 given today * Will obtain level tomorrow AM prior to dialysis to assist with further dosing. Pharmacy will continue to follow and will adjust dose/frequency as necessary. Thank you.
--- NOTE | 2022-11-18 14:24 | Hospitalist Progress Note ---
Date of Service November 18, 2022 Assessment & Plan (1) Osteomyelitis of left foot: Plan: Wound cultures 10/19/22 in [place] grew Staph pseudintermedius and Enterococcus faecalis both sensitive to vancomycin Patient was on IV vancomycin with dialysis for 2 weeks, completed 11/12/22 Presented to hospital for difficulty ambulating and deconditioning 2/2 foot wound; no evidence of systemic infection CT with osteomyelitis of residual left fifth proximal phalanx S/p left fifth toe amputation 11/14, returned to OR 11/17 for delayed primary closure Continue oxycodone 10 mg p.o. every 6 as needed, with IV Dilaudid for breakthrough pain In discussion with Dr. Dias, he feels that he achieved source control, will therefore treat any residual cellulitis with 5 days of vancomycin, which can be dosed during hemodialysis if if patient discharged from hospital in the next 5 days (2) Ambulatory dysfunction: Plan: Multifactorial to chronic comorbid disease as well as amputation of toe and osteomyelitis PT/OT recommending rehab on discharge, case management assisting with this (3) DM II (diabetes mellitus, type II), controlled: Plan: Hemoglobin A1c 5.6% on 11/13/2022 Basal insulin held for surgeries, however patient's blood sugars have been very well controlled so therefore we will continue with sliding scale insulin only for now (4) CAD (coronary artery disease): Plan: Continue amlodipine, clopidogrel, Imdur, lisinopril, metoprolol tartrate, and aspirin Patient denies any chest pain or tightness Continue home dose of 40 mg of p.o. furosemide and follow strict I/Os (5) ESRD (end stage renal disease) on dialysis: Plan: Hemodialysis [facility] Nephrology consulted while admitted (6) HTN (hypertension): Plan: Hemodynamically stable, continue home meds (7) B12 deficiency: Plan: Continue repletion (8) Hypothyroidism: Plan: Continue levothyroxine 125 mcg daily (9) Tobacco abuse: Plan: Patient continues to smoke daily, smoking cessation has been discussed this admission Patient denies urges for cigarettes at this time, nicotine patches if desired (10) Hyperlipidemia: Plan: Continue ezetimibe Plan We will apply for off tomorrow for rehab placement on discharge, case management to assist with this. Patient has been able to receive vancomycin with hemodialysis in the past, will write prescription for this if patient is discharged prior to completion of 5 days of antibiotics, which started today 11/18 Admission and Anticipated Discharge Date Admission Date: November 12, 2022 Subjective Patient without any acute events overnight. Reports left foot pain, and is concerned about right plantar foot wound, concerned that it is getting larger. Review of Systems Review of Systems: All systems reviewed & are unremarkable except as noted in Subjective Physical Exam Constitutional: WD/WN, vitals as above Musculoskeletal: left foot with wound vac in place right plantar foot with 1cm dark lesion, nontender, unchanged from yesterday Skin: no rashes, warm and dry Psychiatric: Orientation: alert and oriented x 3 Results & Data Results & Data Vital Signs (Past 12 Hours) Vital Signs Temp Pulse Resp BP Pulse Ox O2 Del Method 11/18/22 11:57 36.9 C 63 18 160/87 H 97 Room Air 11/18/22 07:39 Room Air 11/18/22 07:00 36.8 C 69 16 147/50 H 98 Room Air 11/18/22 03:54 36.8 C 65 18 170/60 H 96 Room Air PG Care Time/CCT Total # of Minutes Spent Total Time Spent with Patient: Total time spent is greater than 50% in coordination of care (as documented) at patient's floor/unit and/or counseling patient: Coding Level of Care Code 68284 SUB INP/OBS CARE 2/35MIN Diagnoses Osteomyelitis of left foot M86.9 Ambulatory dysfunction R26.2 DM II (diabetes mellitus, type II), controlled E11.9 CAD (coronary artery disease) I25.10 ESRD (end stage renal disease) on dialysis N18.6; Z99.2 HTN (hypertension) I10 B12 deficiency E53.8 Hypothyroidism E03.9 Tobacco abuse Z72.0 Hyperlipidemia E78.5
[2022-11-18] MEDS: ZOLPIDEM TARTRATE 5 MG TAB PO SCH (20:42)
[2022-11-18] MEDS: ATORVASTATIN 40 MG TAB PO SCH (20:42)
[2022-11-18] MEDS: ISOSORBIDE MONO EXTENDED REL 30 MG TABCR PO SCH (20:42)
--- NOTE | 2022-11-18 21:37 | Orthopedic Progress Note ---
Date of Service November 18, 2022 Assessment & Plan (1) Osteomyelitis of left foot: Plan: Patient seen, evaluated, and treated Reviewed wound culture. Awaiting final re-incubation results. Necrosis noted at re-approximation site. Will continue to follow. Thank you for allowing me to participate in the care of this patient. Admission and Anticipated Discharge Date Admission Date: November 12, 2022 Subjective Patient seen at bedside in presence of wound care nursing. Patient is status post day #1 left foot delayed primary closure. Review of Systems Review of Systems: All systems reviewed & are unremarkable except as noted in Subjective Physical Exam Physical Exam: Constitutional: cooperative and comfortable Eyes: normal visual todd by confrontation Neck: normal visual inspection and trachea midline Respiratory: normal respiratory effort Cardiovascular: Rate/Rhythm: regular rate and regular rhythm Musculoskeletal: Extremities: + amputation noted (Left fifth toe) Skin: + wound (sutures intact. Necrosis noted over sight of re-approximation.) Neurologic: moves all extremities (Decreased epicritic sensation) Psychiatric: Orientation: alert and oriented x 3 Results & Data Vital Signs (Past 12 Hours) Vital Signs Temp Pulse Resp BP Pulse Ox O2 Del Method 11/18/22 20:37 36.9 C 66 16 142/45 H 94 Room Air 11/18/22 15:50 36.8 C 57 L 18 132/71 98 Room Air 11/18/22 11:57 36.9 C 63 18 160/87 H 97 [place] [address] / Director: Hermilo Cabral M.D. Clinical Laboratory Report Name: KENYETTA SUMMERS Acct: [id number] [place]: [place] 1960 [facility] [place]12/22 Age: 62 Sex: F Dis Date: Loc: Medical/Surgical/Ortho [address] [place] [address]/Bed: N3[facility] Spec: [id number] Collected: 11/14/22 Received: 11/14/[address]: Yong Dias, DPM, MS Copy To: Albaro Franks MD Source: Toe,Left Fifth OV Order: Ordered: Aer/Magali Cult/Sm Comments: Comment Proximal phalanx of fifth left: for aerobic, anaer Procedure Result Verified Site Gram Stain Final 11/14/22 Gram Stain Result Rare Polys Rare Gram Positive Cocci Aero/Magali Cult Preliminary 11/18/22 Low counts mixed probable skin microbiota. Name: KENYETTA SUMMERS : 1960 PAGE 1 Printed: 11/18/22 3611 END OF REPORT
[2022-11-19] MEDS: LEVOTHYROXINE SODIUM 125 MCG TABLET PO SCH (05:34)
[2022-11-19] MEDS: HYDROmorphone INJ 0.5 MG/0.5 ML SYR IV PRN ×3 (07:47→22:15)
[2022-11-19 08:02] LABS: Hemoglobin 8.9 g/dl (12.0-16.0); Mean Corpuscular Hemoglobin 33.1 pg (25.0-34.0); Mean Corpuscular Volume 100.4 fL (80.0-100.0); Mean Platelet Volume 11.2 fL (9.4-12.4); Platelet Count 180 K/uL (130-400); RDW Standard Deviation 54.3 fL (36.4-46.3); Red Blood Count 2.69 M/uL (4.20-5.40); White Blood Count 5.06 K/ul (4.8-10.8)
[2022-11-19 08:24] LABS: BUN Creatinine Ratio 2.6 (10-20); Calcium 8.6 mg/dl (8.6-10.3); Creatinine Clr Calc Pharmacy 12.4 ml/min; Est GFR (African American) 12.5 ml/min; Est GFR (Non-African American) 10.8 ml/min; Potassium 4.3 mmol/L (3.5-5.1)
[2022-11-19] MEDS: NICOTINE 21 MG/24 HR TDSY TD SCH (08:47)
[2022-11-19] MEDS: SEVELAMER HCL 800 MG TABLET PO SCH ×3 (08:48→17:39)
[2022-11-19] MEDS: PANTOprazole 40 MG TAB PO SCH (08:49)
[2022-11-19] MEDS: CLOPIDOGREL BISULFATE 75 MG TAB PO SCH (08:49)
[2022-11-19] MEDS: NEPHROCAPS PO SCH (08:49)
[2022-11-19] MEDS: FUROSEMIDE 40 MG TAB PO SCH (08:49)
[2022-11-19] MEDS: CHOLECALCIFEROL 1,000 UNITS 25 MCG TAB PO SCH (08:49)
[2022-11-19] MEDS: ASPIRIN 81 MG ECTAB PO SCH (08:50)
[2022-11-19] MEDS: EZETIMIBE 10 MG TABLET PO SCH (08:50)
[2022-11-19] MEDS: allopurinoL 100 MG TAB PO SCH (08:51)
[2022-11-19] MEDS: INSULIN ASPART PER UNIT CHARGE SC SCH ×4 (08:58→21:55)
[2022-11-19] MEDS: HEPARIN SOD 5,000 UNIT/0.5 ML VIAL SQ SCH ×2 (08:59→21:54)
--- NOTE | 2022-11-19 09:26 | Pharmacy Report ---
Pharmacy PK ABX Note - Date of Service November 19, 2022 - Assessment and Plan Assessment 62 year old F receiving vancomycin for treatment of diabetic foot wound- post OR excision. Per hospitalist would like to treat for 5 days (achieved source control)- previous culture data with E. faecalis and Staph pseudintermedius. Patient is HD schedule MWF, will dose by levels. Day # 2/5 of antimicrobial therapy Plan Vancomycin * Current regimen: 1250 mg IV x 1 dose yesterday * Random level obtained this morning resulted as 17.5 mcg/mL. * HD today - redose after HD - 750mg IV x 1 * Repeat random level in AM, patient still producing urine. Pharmacy will continue to follow and will adjust dose/frequency as necessary. Thank you.
--- NOTE | 2022-11-19 12:06 | Nephrology Progress Note ---
Date of Service November 19, 2022 Assessment & Plan (1) ESRD (end stage renal disease) on dialysis: Plan: HD MWF. Orders for HD today entered into the EHR and reviewed with heel slicker. Outpatient Rx: MWF at [facility] 3 hours on a 180 optflux Qb 400 Qd 600. 2K, 35 HCO3, 137 Na. EDW 60.5 kg. AVF functioning well. Medications appropriately dosed for IHD. (2) HTN (hypertension): Plan: Volume status acceptable. Renal diet. BP acceptable. Continue lisinopril, clonidine, metoprolol, Imdur, and amlodipine per home Rx. (3) Anemia: Plan: s/p 1 unit PRBC transfusion support on 11/12 prior to admission. H/H stable. No melena or hematochezia. Epogen 16419 units provided with HD 11/15. Venofer 100 mg and Epogen 52383 units with HD today. (4) Weakness: Plan: Potential discharge to [facility] on Tuesday. At , resume HD at [facility]. (5) Osteomyelitis: Plan: POD # 5 s/p amputation by Dr. Dias. POD#2 s/p delayed closure and vac removal. Cultures pending. Remains on vancomycin for 1 week. Post HD dosing today per pharmacy. Plan to coordinate post discharge with [facility]. Plan Admission and Anticipated Discharge Date Admission Date: November 12, 2022 Subjective No acute events overnight. No complaints this AM. Reasonable pain control. No fevers or chills. Review of Systems Review of Systems: All systems reviewed & are unremarkable except as noted in HPI & below Physical Exam Constitutional: WD/WN, vitals as above no acute distress Eyes: + anicteric sclerae Neck: normal visual inspection Respiratory: no respiratory distress Auscultation: lungs clear to auscultation bilaterally Cardiovascular: Rate/Rhythm: regular rate and regular rhythm Heart Sounds: normal S1 and normal S2 Extremities: + AV fistula (RT BC AVF with thrill and bruit.); no edema Skin: no rashes, warm and dry Neurologic: no focal motor deficits Psychiatric: Orientation: alert and oriented x 3 Affect: euthymic affect Results & Data Vital Signs (Past 12 Hours) Vital Signs Temp Pulse Pulse Pulse Resp BP BP 11/19/22 11:30 58 L 127/40 L 11/19/22 11:00 61 143/46 H 11/19/22 10:30 57 L 140/50 L 11/19/22 10:13 57 L 154/57 H 11/19/22 10:06 36.9 C 60 11/19/22 07:18 36.7 C 64 18 162/52 H Pulse Ox O2 Del Method 11/19/22 11:30 11/19/22 11:00 11/19/22 10:30 11/19/22 10:13 11/19/22 10:06 11/19/22 07:18 100 Room Air Laboratory Results Laboratory Results - last 24 hr 11/18/22 11/18/22 11/18/22 12:13 17:04 20:35 WBC RBC Hgb Hct MCV MCH MCHC RDW Std Deviation RDW Coeff of Evette Plt Count MPV Sodium Potassium Chloride Carbon Dioxide Anion Gap BUN Creatinine Est Cr Clr Drug Dosing Est GFR ( Amer) Est GFR (Non-Af Amer) BUN/Creatinine Ratio Glucose POC Glucose 163 H 95 182 H Calcium Random Vancomycin 11/19/22 11/19/22 11/19/22 07:32 07:32 07:32 WBC 5.06 RBC 2.69 L Hgb 8.9 L Hct 27.0 L MCV 100.4 H MCH 33.1 MCHC 33.0 RDW Std Deviation 54.3 H RDW Coeff of Evette 15.0 H Plt Count 180 MPV 11.2 Sodium 137 Potassium 4.3 Chloride 104 Carbon Dioxide 26 Anion Gap 7 BUN 11 Creatinine 4.18 H D Est Cr Clr Drug Dosing 12.4 Est GFR ( Amer) 12.5 Est GFR (Non-Af Amer) 10.8 BUN/Creatinine Ratio 2.6 L Glucose 107 H POC Glucose Calcium 8.6 Random Vancomycin 17.5 11/19/22 08:10 WBC RBC Hgb Hct MCV MCH MCHC RDW Std Deviation RDW Coeff of Evette Plt Count MPV Sodium Potassium Chloride Carbon Dioxide Anion Gap BUN Creatinine Est Cr Clr Drug Dosing Est GFR ( Amer) Est GFR (Non-Af Amer) BUN/Creatinine Ratio Glucose POC Glucose 89 Calcium Random Vancomycin PG Care Time/CCT Total # of Minutes Spent Total Time Spent with Patient: Total time spent is greater than 50% in coordination of care (as documented) at patient's floor/unit and/or counseling patient: Coding Level of Care Code 86048 SUB INP/OBS CARE MIN Diagnoses ESRD (end stage renal disease) on dialysis N18.6; Z99.2 HTN (hypertension) I10 Anemia D64.9 Weakness R53.1 Osteomyelitis M86.9 Laterality: left Osteomyelitis location: foot Osteomyelitis type: unspecified type (5) Osteomyelitis Laterality: left Osteomyelitis location: foot Osteomyelitis type: unspecified type Qualified Code(s): M86.9 - Osteomyelitis, unspecified
[2022-11-19] MEDS ORDERED: EPOETIN ALFA 20,000 UNITS/ML VIAL IV ONE (12:08)
[2022-11-19] MEDS ORDERED: IRON SUCROSE 100 MG in SYRINGE 0 ML IV ONE (12:15)
--- NOTE | 2022-11-19 12:41 | Pharmacy Report ---
Pharmacy Glycemic Short Note 2 - Date of Service November 19, 2022 - Glycemic Short BSG Results (Last 24 hours): 11/18/22 11/18/22 11/19/22 17:04 20:35 07:32 Glucose 107 H POC Glucose 95 182 H 11/19/22 08:10 Glucose POC Glucose 89 OUTPATIENT ANTIDIABETIC REGIMEN: * Toujeo 27 units SQ daily * Humalog SS QID * Trulicity ASSESSMENT: 11/17/22: * BSGs remained lower end of goal, continue to hold basal insulin, change goal range to prevent hypoglycemia. * Remains on IV Vancomycin and HD MWF. 11/18/22: * BSGs remained lower end of goal with no insulin on board yesterday * Fasting 65 mg/dL this morning- continue to hold basal * Novolog carb ratio was loosened; lunch BSG 163 mg/dL (no novolog with breakfast) 11/17/22: * BSGs have been consistently below goal for the past several days. Pt has not been receiving any basal insulin and very little Novolog (less than 5 units per day). * Pt had an HD session again today. * Pt has been NPO today for return to OR for wound vac removal and closure. * No changes indicated at this time. from 11/13 * 62 y/o F 83 y/o M admitted for chronic diabetic foot infection and possible osteomyelitis. Patient was recently on IV Vancomycin and potential failed therapy. Also with history of ESRD and chronic Hemodialysis. * Although patient is prescribed above home meds, per med rec notes, she was only taking Humalog insulin prior to admission. * Patient's A1c = 5.6% today. * However, this result is likely somewhat unreliable in ESRD patients d/t interactions between the A1c analyzing technique and high levels of urea in ESRD, reduced RBC life span, iron deficiency anemia, and EPO administration. * Pharmacy consulted last night and patient was ordered Novolog (based on stress of 2) and Lantus but her BSGs have been stable and controlled since admission. So she has not received any insulin so far. * Basal insulin is currently discontinued. Will re-assess and order this if BSG trends up. * Fasting BSG was 110 mg/dl today. Continued Novolog with same parameters. Pre- lunch BSG = 111 mg/dl. * Patient is also currently NPO for bone biopsy tomorrow. PLAN FOR INPATIENT GLYCEMIC CONTROL: * Hold outpatient diabetes medications * Basal insulin * on hold * Bolus insulin * NovoLog per scale ACHS or Q6hrs while NPO * CHANGE: Goal Range: Low 120 mg/dL - High 160 mg/dL * Correction Factor: 40 mg/dL/unit * Nutritional / Prandial insulin per carb ratio of 1 unit per 18 grams CHO consumed
[2022-11-19] MEDS: METOPROLOL TARTRATE 50 MG TAB PO SCH ×2 (14:30→21:54)
[2022-11-19] MEDS: lisinopril 40 MG TAB PO SCH (14:31)
[2022-11-19] MEDS: amLODIPine BESYLATE 5 MG TAB PO SCH (14:31)
--- NOTE | 2022-11-19 15:01 | Hospitalist Progress Note ---
Date of Service November 19, 2022 Assessment & Plan (1) Osteomyelitis of left foot: Plan: Wound cultures 10/19/22 in [place] grew Staph pseudintermedius and Enterococcus faecalis both sensitive to vancomycin Patient was on IV vancomycin with dialysis for 2 weeks, completed 11/12/22 Presented to hospital for difficulty ambulating and deconditioning 2/2 foot wound; no evidence of systemic infection CT with osteomyelitis of residual left fifth proximal phalanx S/p left fifth toe amputation 11/14, returned to OR 11/17 for delayed primary closure Continue oxycodone 10 mg p.o. every 6 as needed, with IV Dilaudid for breakthrough pain Per discussions yesterday with Dr. Dias, he feels that he achieved source control, will therefore treat any residual cellulitis with 5 days of vancomycin, which can be dosed during hemodialysis if if patient discharged from hospital in the next 5 days Continue daily dressing changes, elevation Repeat labs in AM (2) Ambulatory dysfunction: Plan: Multifactorial to chronic comorbid disease as well as amputation of toe and osteomyelitis PT/OT recommending rehab on discharge, case management assisting with this (3) DM II (diabetes mellitus, type II), controlled: Plan: Hemoglobin A1c 5.6% on 11/13/2022 Basal insulin held for surgeries, however patient's blood sugars have been very well controlled so therefore we will continue with sliding scale insulin only for now (4) CAD (coronary artery disease): Plan: Continue amlodipine, clopidogrel, Imdur, lisinopril, metoprolol tartrate, and aspirin Patient denies any chest pain or tightness Continue home dose of 40 mg of p.o. furosemide and follow strict I/Os (5) ESRD (end stage renal disease) on dialysis: Plan: Hemodialysis MWF Nephrology consulted while admitted (6) HTN (hypertension): Plan: Chronic stable Hemodynamically stable, continue home meds (7) B12 deficiency: Plan: chronic and stable Continue repletion (8) Hypothyroidism: Plan: Chronic and stable Continue levothyroxine 125 mcg daily (9) Tobacco abuse: Plan: Patient continues to smoke daily, smoking cessation has been discussed this admission Patient denies urges for cigarettes at this time, nicotine patches if desired (10) Hyperlipidemia: Plan: Chronic and stable Continue ezetimibe Plan [facility] is able to accept patient on Tuesday if medically stable. Will need updated PT notes Tuesday. Patient has been able to receive vancomycin with hemodialysis in the past, will write prescription for this if patient is discharged prior to completion of 5 days of antibiotics, which started today 11/18 Admission and Anticipated Discharge Date Admission Date: November 12, 2022 Subjective No acute events overnight, patient seen this afternoon after dialysis. She complains of foot pain. Per patient she states it looks better today compared to yesterday. Review of Systems 2 Review of Systems: A total of 10 systems was reviewed and is negative other than as listed in the HPI Physical Exam Constitutional: WD/WN, vitals as above Neck: trachea midline, no thyromegaly Respiratory: normal respiratory effort, lungs clear to auscultation Cardiovascular: RRR, no murmur, no edema Gastrointestinal (Abdomen): normal bowel sounds, soft, nontender, no hepatosplenomegaly Skin: Left 5th toe s/p amputation, sutures intact, swelling, no discharge, tender, per patient less erythema compared to yesterday Psychiatric: A+Ox3, euthymic affect Results & Data Results & Data Vital Signs (Past 12 Hours) Vital Signs Temp Pulse Pulse Pulse Resp BP BP 11/19/22 13:50 36.7 C 175/53 H 11/19/22 13:30 64 167/59 H 11/19/22 13:00 64 167/59 H 11/19/22 12:30 59 L 161/52 H 11/19/22 12:00 59 L 144/51 H 11/19/22 11:30 58 L 127/40 L 11/19/22 11:00 61 143/46 H 11/19/22 10:30 57 L 140/50 L 11/19/22 10:13 57 L 154/57 H 11/19/22 10:06 36.9 C 60 11/19/22 07:18 36.7 C 64 18 162/52 H Pulse Ox O2 Del Method 11/19/22 13:50 11/19/22 13:30 11/19/22 13:00 11/19/22 12:30 11/19/22 12:00 11/19/22 11:30 11/19/22 11:00 11/19/22 10:30 11/19/22 10:13 11/19/22 10:06 11/19/22 07:18 100 Room Air Laboratory Results Abnormal lab results 11/18/22 11/19/22 11/19/22 Range/Units 20:35 07:32 07:32 RBC 2.69 L (4.20-5.40) M/uL Hgb 8.9 L (12.0-16.0) g/dl Hct 27.0 L (37.0-47.0) % MCV 100.4 H (80.0-100.0) fL RDW Std Deviation 54.3 H (36.4-46.3) fL RDW Coeff of Evette 15.0 H (11.5-14.5) % Creatinine 4.18 H D (0.6-1.2) mg/dl BUN/Creatinine Ratio 2.6 L (10-20) Glucose 107 H (70-99(Fasting)) mg/dl POC Glucose 182 H (70-99) mg/dl 11/19/22 Range/Units 14:05 RBC (4.20-5.40) M/uL Hgb (12.0-16.0) g/dl Hct (37.0-47.0) % MCV (80.0-100.0) fL RDW Std Deviation (36.4-46.3) fL RDW Coeff of Evette (11.5-14.5) % Creatinine (0.6-1.2) mg/dl BUN/Creatinine Ratio (10-20) Glucose (70-99(Fasting)) mg/dl POC Glucose 130 H (70-99) mg/dl PG Care Time/CCT Total # of Minutes Spent Total Time Spent with Patient: Total time spent is greater than 50% in coordination of care (as documented) at patient's floor/unit and/or counseling patient: Coding Level of Care Code 36395 SUB INP/OBS CARE 07/07MIN Diagnoses Osteomyelitis of left foot M86.9 Ambulatory dysfunction R26.2 DM II (diabetes mellitus, type II), controlled E11.9 CAD (coronary artery disease) I25.10 ESRD (end stage renal disease) on dialysis N18.6; Z99.2 HTN (hypertension) I10 B12 deficiency E53.8 Hypothyroidism E03.9 Tobacco abuse Z72.0 Hyperlipidemia E78.5
[2022-11-19] MEDS: oxyCODONE HCL IR 5 MG TAB (IMMEDIATE RELEASE) PO PRN ×2 (15:41→21:41)
[2022-11-19] MEDS ORDERED: VANCOMYCIN HCL 750 MG in SODIUM CHLORIDE 0.9% 250 ML IV SCH (18:00)
[2022-11-19] MEDS: ATORVASTATIN 40 MG TAB PO SCH (21:54)
[2022-11-19] MEDS: ZOLPIDEM TARTRATE 5 MG TAB PO SCH (21:54)
[2022-11-19] MEDS: ISOSORBIDE MONO EXTENDED REL 30 MG TABCR PO SCH (21:54)
[2022-11-20 06:10] LABS: Basophils # (auto) 0.03 K/uL (0-0.2); Basophils % (auto) 0.6 %; Eosinophils # (auto) 0.13 K/uL (0-0.50); Eosinophils % (auto) 2.7 %; Hematocrit (blood only) 26.7 % (37.0-47.0); Hemoglobin 8.9 g/dl (12.0-16.0); Immature Granulocytes # (auto) 0.02 K/uL (0.01-0.20); Immature Granulocytes % (auto) 0.4 %; Lymphocytes # (auto) 1.44 K/uL (1.2-3.4); Lymphocytes % (auto) 29.9 %; Mean Corpuscular Hemoglobin 33.1 pg (25.0-34.0); Mean Corpuscular Hgb Conc 33.3 g/dL (32.0-36.0); Mean Corpuscular Volume 99.3 fL (80.0-100.0); Monocytes # (auto) 0.57 K/uL (0.11-0.59); Monocytes % (auto) 11.9 %; Neutrophils # (auto) 2.62 K/uL (1.40-6.50); Neutrophils % (auto) 54.5 %; Platelet Count 186 K/uL (130-400); RDW Coefficient of Variation 15.1 % (11.5-14.5); RDW Standard Deviation 54.5 fL (36.4-46.3); Red Blood Count 2.69 M/uL (4.20-5.40); White Blood Count 4.81 K/ul (4.8-10.8)
[2022-11-20] MEDS: LEVOTHYROXINE SODIUM 125 MCG TABLET PO SCH (06:15)
[2022-11-20] MEDS: oxyCODONE HCL IR 5 MG TAB (IMMEDIATE RELEASE) PO PRN ×2 (06:15→13:53)
[2022-11-20 06:24] LABS: BUN Creatinine Ratio 2.3 (10-20); Calcium 8.6 mg/dl (8.6-10.3); Creatinine Clr Calc Pharmacy 19.4 ml/min; Est GFR (African American) 21.6 ml/min; Est GFR (Non-African American) 18.6 ml/min; Potassium 3.9 mmol/L (3.5-5.1)
--- NOTE | 2022-11-20 07:27 | Orthopedic Progress Note ---
Date of Service November 19, 2022 Assessment & Plan (1) Osteomyelitis of left foot: Plan: Patient seen, evaluated, and treated Reviewed wound culture. No growth Continued necrosis noted at re-approximation site. Unfortunate due to PAD. Will continue to monitor and follow. Thank you for allowing me to participate in the care of this patient. Admission and Anticipated Discharge Date Admission Date: November 12, 2022 Subjective Patient seen this afternoon after dialysis. She complains of both right and left foot pain. Review of Systems Review of Systems: All systems reviewed & are unremarkable except as noted in Subjective Physical Exam Physical Exam: Constitutional: cooperative and comfortable Eyes: normal visual todd by confrontation Neck: normal visual inspection and trachea midline Respiratory: normal respiratory effort Cardiovascular: Rate/Rhythm: regular rate and regular rhythm Musculoskeletal: Extremities: + amputation noted (Left fifth toe) Skin: + ulcer and + wound (sutures intact. Necrosis noted over sight of re- approximation.) Neurologic: moves all extremities (Decreased epicritic sensation) Psychiatric: Orientation: alert and oriented x 3 Results & Data Vital Signs (Past 12 Hours) Vital Signs Temp Pulse Pulse Resp BP Pulse Ox O2 Del Method 11/20/22 07:02 36.8 C 66 16 134/47 L 99 Room Air 11/19/22 22:15 Room Air 11/19/22 21:05 37.8 C H 74 18 135/56 L 96 Room [place] [address] / Director: Hermilo Cabral M.D. Clinical Laboratory Report Name: KENYETTA SUMMERS Acct: [id number] Status: ADM [place] : 1960 [facility] [place] Date: 11/12/22 Age: 62 Sex: F Dis Date: Loc: Medical/Surgical/Ortho [address] [place] [address]/Bed: N3-1 Spec: [id number] Collected: 11/14/22 Received: 11/14/[address]: Yong Dias, DPM, MS Copy To: Albaro Franks MD Source: Toe,Left Fifth OV Order: Ordered: Aer/Magali Cult/Sm Comments: Comment Proximal phalanx of fifth left: for aerobic, anaer Procedure Result Verified Site Gram Stain Final 11/14/22 Gram Stain Result Rare Polys Rare Gram Positive Cocci Aero/Magali Cult Final 11/19/22 Low counts mixed probable skin microbiota. No further identifications or sensitivities to follow. Name: KENYETTA SUMMERS : 1960 PAGE 1 Printed: 11/20/22 0738 END OF REPORT
--- NOTE | 2022-11-20 08:33 | Nephrology Progress Note ---
Date of Service November 20, 2022 Assessment & Plan (1) ESRD (end stage renal disease) on dialysis: Plan: * ESKD due to diabetic nephropathy * Outpatient HD MWF [facility] (3 hours, F-180NR, Qb 400/Qd 600, 2K, 35 HCO3, 137 Na, EDW 60.5 kg) * Clinically euvolemic, electrolyte balance is acceptable. No acute indication for HD today. Will reassess in am (2) HTN (hypertension): Plan: * BP remains well controlled * Continue lisinopril, clonidine, metoprolol, Imdur, and amlodipine per home Rx (3) Anemia: Plan: * s/p 1 unit PRBC 11/12 * Epogen 10,000 IV on 11/15 * Venofer 100 mg and Epogen 20,000 units with HD 11/19/22 (4) Weakness: Plan: * Potential discharge to [facility] on Tuesday (5) Osteomyelitis: Plan: * L 5th ray amputation 11/14/[address] Dias Plan Admission and Anticipated Discharge Date Admission Date: November 12, 2022 Subjective Mrs. Hudson was evaluated in her hospital room this morning. She was dialyzed yesterday for 2 L UF without complication. She voiced no new medical concerns Review of Systems Constitutional: no fever Eyes: no problem reported Ear, Nose, Mouth, Throat: no problem reported Respiratory: no problem reported Cardiovascular: no chest pain Gastrointestinal: no abdominal pain, no nausea, no vomiting and no diarrhea/loose stools Physical Exam Constitutional: not in distress Eyes: PERRL, conjunctivae normal, anicteric sclerae ENMT: external ear and nose normal, oropharynx normal Neck: trachea midline, no thyromegaly Respiratory: normal respiratory effort, lungs clear to auscultation Cardiovascular: Rate/Rhythm: regular rate and regular rhythm Heart Sounds: + murmur (soft systolic murmur) R BC AVF + bruit Gastrointestinal (Abdomen): normal bowel sounds, soft, nontender, no hepatosplenomegaly Musculoskeletal: Extremities: no cyanosis Neurologic: Speech / Cognition: normal speech and normal cognition Results & Data Vital Signs (Past 12 Hours) Vital Signs Temp Pulse Pulse Resp BP Pulse Ox O2 Del Method 11/20/22 07:02 36.8 C 66 16 134/47 L 99 Room Air 11/19/22 22:15 Room Air 11/19/22 21:05 37.8 C H 74 18 135/56 L 96 Room Air Laboratory Results Laboratory Tests 11/20/22 11/20/22 05:55 05:55 WBC 4.81 Hgb 8.9 L Hct 26.7 L Plt Count 186 Sodium 136 Potassium 3.9 Chloride 104 Carbon Dioxide 27 BUN 6 Creatinine 2.66 H D Glucose 96 Calcium 8.6 PG Care Time/CCT Total # of Minutes Spent Total Time Spent with Patient: Total time spent is greater than 50% in coordination of care (as documented) at patient's floor/unit and/or counseling patient: Coding Level of Care Code 28415 SUB INP/OBS CARE 3/50MIN Diagnoses ESRD (end stage renal disease) on dialysis N18.6; Z99.2 HTN (hypertension) I10 Anemia D64.9 Weakness R53.1 Osteomyelitis M86.9 Laterality: left Osteomyelitis location: foot Osteomyelitis type: unspecified type (5) Osteomyelitis Laterality: left Osteomyelitis location: foot Osteomyelitis type: unspecified type Qualified Code(s): M86.9 - Osteomyelitis, unspecified
[2022-11-20] MEDS: ASPIRIN 81 MG ECTAB PO SCH (08:34)
[2022-11-20] MEDS: NEPHROCAPS PO SCH (08:34)
[2022-11-20] MEDS: HEPARIN SOD 5,000 UNIT/0.5 ML VIAL SQ SCH ×2 (08:34→21:07)
[2022-11-20] MEDS: amLODIPine BESYLATE 5 MG TAB PO SCH (08:34)
[2022-11-20] MEDS: SEVELAMER HCL 800 MG TABLET PO SCH ×3 (08:34→17:42)
[2022-11-20] MEDS: CLOPIDOGREL BISULFATE 75 MG TAB PO SCH (08:35)
[2022-11-20] MEDS: FUROSEMIDE 40 MG TAB PO SCH (08:35)
[2022-11-20] MEDS: cloNIDine HCL 0.1 MG TAB PO SCH (08:35)
[2022-11-20] MEDS: CHOLECALCIFEROL 1,000 UNITS 25 MCG TAB PO SCH (08:35)
[2022-11-20] MEDS: lisinopril 40 MG TAB PO SCH (08:35)
[2022-11-20] MEDS: METOPROLOL TARTRATE 50 MG TAB PO SCH ×2 (08:36→21:07)
[2022-11-20] MEDS: EZETIMIBE 10 MG TABLET PO SCH (08:36)
[2022-11-20] MEDS: PANTOprazole 40 MG TAB PO SCH (08:36)
[2022-11-20] MEDS: NICOTINE 21 MG/24 HR TDSY TD SCH (08:36)
[2022-11-20] MEDS: allopurinoL 100 MG TAB PO SCH (08:36)
[2022-11-20] MEDS: INSULIN ASPART PER UNIT CHARGE SC SCH ×4 (08:39→20:53)
--- NOTE | 2022-11-20 10:14 | Pharmacy Report ---
Pharmacy PK ABX Note - Date of Service November 20, 2022 - Assessment and Plan Assessment 62 year old F receiving vancomycin for treatment of diabetic foot wound- post OR excision. Per hospitalist would like to treat for 5 days (achieved source control)- previous culture data with E. faecalis and Staph pseudintermedius. Patient is HD schedule MWF, will dose by levels. Day # 3/5 of antimicrobial therapy Plan Vancomycin * Current regimen: Dosing by Levels * Random level obtained this morning resulted as 22.2 mcg/mL.-no HD planned * Repeat random level in AM, patient still producing some urine. Pharmacy will continue to follow and will adjust dose/frequency as necessary. Thank you.
--- NOTE | 2022-11-20 10:52 | Hospitalist Progress Note ---
Date of Service November 20, 2022 Assessment & Plan (1) Osteomyelitis of left foot: Plan: Wound cultures 10/19/22 in [place] grew Staph pseudintermedius and Enterococcus faecalis both sensitive to vancomycin Patient was on IV vancomycin with dialysis for 2 weeks, completed 11/12/22 Presented to hospital for difficulty ambulating and deconditioning 2/2 foot wound; no evidence of systemic infection CT with osteomyelitis of residual left fifth proximal phalanx S/p left fifth toe amputation 11/14, returned to OR 11/17 for delayed primary closure Continue oxycodone 10 mg p.o. every 6 as needed, with IV Dilaudid for breakthrough pain Per discussions yesterday with Dr. Dias, he feels that he achieved source control, will therefore treat any residual cellulitis with 5 days of vancomycin, which can be dosed during hemodialysis if if patient discharged from hospital in the next 5 days Continue daily dressing changes, elevation (day 3) Repeat labs in AM (2) Ambulatory dysfunction: Plan: Multifactorial to chronic comorbid disease as well as amputation of toe and osteomyelitis PT/OT recommending rehab on discharge, case management assisting with this (3) DM II (diabetes mellitus, type II), controlled: Plan: Hemoglobin A1c 5.6% on 11/13/2022 Basal insulin held for surgeries, however patient's blood sugars have been very well controlled so therefore we will continue with sliding scale insulin only for now (4) CAD (coronary artery disease): Plan: Continue amlodipine, clopidogrel, Imdur, lisinopril, metoprolol tartrate, and aspirin Patient denies any chest pain or tightness Continue home dose of 40 mg of p.o. furosemide and follow strict I/Os (5) ESRD (end stage renal disease) on dialysis: Plan: Hemodialysis F Nephrology consulted while admitted (6) HTN (hypertension): Plan: Chronic stable Hemodynamically stable, continue home meds BP 135/56 (7) B12 deficiency: Plan: chronic and stable Continue repletion (8) Hypothyroidism: Plan: Chronic and stable Continue levothyroxine 125 mcg daily (9) Tobacco abuse: Plan: Chronic, unstable Patient continues to smoke daily, smoking cessation has been discussed this a dmission Patient denies urges for cigarettes at this time, nicotine patches if desired (10) Hyperlipidemia: Plan: Chronic and stable Continue ezetimibe (11) PAD (peripheral artery disease): Plan: Chronic, unstable Continued necrosis at re-approximation site Last duplex scan 11/12/22 IMPRESSION: 1. Patent bilateral lower exam he arteries with extensive atherosclerotic vascular disease. Predominantly monophasic waveforms bilaterally. 2. In the right leg, greatest stenosis is at the common femoral artery with estimated 50-74% based on peak systolic velocity criteria. 3. In the left leg, greatest stenosis is at the proximal SFA with estimated stenosis of 50-74% based on peak systolic velocity criteria. Plan [facility] able to accept patient on Tuesday if medically stable. Will need updated PT notes Tuesday. Patient has been able to receive vancomycin with hemodialysis in the past, will write prescription for this if patient is discharged prior to completion of 5 days of antibiotics, which started today 11/18 Admission and Anticipated Discharge Date Admission Date: November 12, 2022 Subjective Patient seen this AM, she was awake sitting up in recliner. She still continues to have right foot pain at the surgical sit and also at the heel. She denies any previous pain prior to the surgery and denies any pain with walking. Review of Systems Review of Systems: A total of 10 systems was reviewed and is negative other than as listed in the HPI Physical Exam Constitutional: WD/WN, vitals as above Neck: trachea midline, no thyromegaly Respiratory: normal respiratory effort, lungs clear to auscultation Cardiovascular: RRR, no murmur, no edema Gastrointestinal (Abdomen): normal bowel sounds, soft, nontender, no hepatosplenomegaly Psychiatric: A+Ox3, euthymic affect Results & Data Results & Data Vital Signs (Past 12 Hours) Vital Signs Temp Pulse Resp BP Pulse Ox O2 Del Method 11/20/22 07:02 36.8 C 66 16 134/47 L 99 Room Air PG Care Time/CCT Total # of Minutes Spent Total Time Spent with Patient: Total time spent is greater than 50% in coordination of care (as documented) at patient's floor/unit and/or counseling patient: Coding Level of Care Code 32743 SUB INP/OBS CARE 07/07MIN Diagnoses Osteomyelitis of left foot M86.9 Ambulatory dysfunction R26.2 DM II (diabetes mellitus, type II), controlled E11.9 CAD (coronary artery disease) I25.10 ESRD (end stage renal disease) on dialysis N18.6; Z99.2 HTN (hypertension) I10 B12 deficiency E53.8 Hypothyroidism E03.9 Tobacco abuse Z72.0 Hyperlipidemia E78.5 PAD (peripheral artery disease) I73.9
[2022-11-20] MEDS: HYDROmorphone INJ 0.5 MG/0.5 ML SYR IV PRN ×3 (17:42→23:47)
[2022-11-20] MEDS ORDERED: bisacodyL 10 MG SUPP PR ONE (18:00)
[2022-11-20] MEDS ORDERED: MAGNESIUM HYDROXIDE SUSP 30 ML UDC PO ONE (18:00)
[2022-11-20] MEDS ORDERED: Nursing to Pharmacy Communication SCH (18:15)
[2022-11-20] MEDS ORDERED: bisacodyL 10 MG SUPP PR PRN (18:26)
[2022-11-20] MEDS: ZOLPIDEM TARTRATE 5 MG TAB PO SCH (21:06)
[2022-11-20] MEDS: ATORVASTATIN 40 MG TAB PO SCH (21:06)
[2022-11-20] MEDS: ISOSORBIDE MONO EXTENDED REL 30 MG TABCR PO SCH (21:06)
[2022-11-21] MEDS: LEVOTHYROXINE SODIUM 125 MCG TABLET PO SCH (05:33)
[2022-11-21 06:06] LABS: Hematocrit (blood only) 25.3 % (37.0-47.0); Hemoglobin 8.5 g/dl (12.0-16.0); Mean Corpuscular Hemoglobin 32.7 pg (25.0-34.0); Mean Corpuscular Hgb Conc 33.6 g/dL (32.0-36.0); Mean Corpuscular Volume 97.3 fL (80.0-100.0); Mean Platelet Volume 11.3 fL (9.4-12.4); Platelet Count 190 K/uL (130-400); RDW Coefficient of Variation 14.6 % (11.5-14.5); RDW Standard Deviation 52.4 fL (36.4-46.3); White Blood Count 4.73 K/ul (4.8-10.8)
[2022-11-21 06:24] LABS: BUN Creatinine Ratio 3.2 (10-20); Calcium 8.6 mg/dl (8.6-10.3); Creatinine Clr Calc Pharmacy 12.6 ml/min; Est GFR (African American) 12.8 ml/min; Potassium 4.3 mmol/L (3.5-5.1)
[2022-11-21] MEDS: oxyCODONE HCL IR 5 MG TAB (IMMEDIATE RELEASE) PO PRN ×3 (06:34→19:50)
--- NOTE | 2022-11-21 08:27 | Nephrology Progress Note ---
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 No acute indication for HD today. Will schedule next HD for am (2) HTN (hypertension): Plan: * BP remains acceptable * Continue lisinopril, clonidine, metoprolol, Imdur, and amlodipine per home Rx (3) Anemia: Plan: * s/p 1 unit PRBC 11/12 * Epogen 10,000 IV on 11/15 * Venofer 100 mg and Epogen 20,000 units with HD 11/19/22 (4) Weakness: Plan: * Potential discharge to [facility] on Tuesday (5) Osteomyelitis: Plan: * L 5th ray amputation 11/14/[address] Dias Plan Admission and Anticipated Discharge Date Admission Date: November 12, 2022 Subjective Mrs. Hudson was evaluated in her hospital room this morning. She c/o L foot discomfort. She voiced no new medical concerns Review of Systems Review of Systems: Constitutional: no fever Eyes: no problem reported Ear, Nose, Mouth, Throat: no problem reported Respiratory: no problem reported Cardiovascular: no chest pain Gastrointestinal: no abdominal pain, no nausea, no vomiting and no diarrhea/loose stools Physical Exam Constitutional: not in distress Eyes: PERRL, conjunctivae normal, anicteric sclerae ENMT: external ear and nose normal, oropharynx normal Neck: trachea midline, no thyromegaly Respiratory: normal respiratory effort, lungs clear to auscultation Cardiovascular: Rate/Rhythm: regular rate and regular rhythm Heart Sounds: + murmur (soft systolic murmur) R BC AVF + bruit Gastrointestinal (Abdomen): normal bowel sounds, soft, nontender, no hepatosplenomegaly Musculoskeletal: Extremities: no cyanosis Neurologic: Speech / Cognition: normal speech and normal cognition Results & Data Vital Signs (Past 12 Hours) Vital Signs Temp Pulse Pulse Resp BP Pulse Ox O2 Del Method 11/21/22 07:35 37.0 C 62 16 152/54 H 97 Room Air 11/20/22 22:37 37.4 C 66 16 133/45 L 95 Room Air 11/20/22 21:05 71 16 151/52 H 99 Room Air Laboratory Results Laboratory Tests 11/21/22 11/21/22 05:38 05:38 WBC 4.73 L Hgb 8.5 L Hct 25.3 L Plt Count 190 Sodium 135 L Potassium 4.3 Chloride 102 Carbon Dioxide 27 BUN 13 Creatinine 4.11 H D Glucose 108 H PG Care Time/CCT Total # of Minutes Spent Total Time Spent with Patient: Total time spent is greater than 50% in coordination of care (as documented) at patient's floor/unit and/or counseling patient: Coding Level of Care Code 96211 SUB INP/OBS CARE 3/50MIN Diagnoses ESRD (end stage renal disease) on dialysis N18.6; Z99.2 HTN (hypertension) I10 Anemia D64.9 Weakness R53.1 Osteomyelitis M86.9 Laterality: left Osteomyelitis location: foot Osteomyelitis type: unspecified type (5) Osteomyelitis Laterality: left Osteomyelitis location: foot Osteomyelitis type: unspecified type Qualified Code(s): M86.9 - Osteomyelitis, unspecified
[2022-11-21] MEDS: lisinopril 40 MG TAB PO SCH (08:54)
[2022-11-21] MEDS: cloNIDine HCL 0.1 MG TAB PO SCH (08:55)
[2022-11-21] MEDS: CHOLECALCIFEROL 1,000 UNITS 25 MCG TAB PO SCH (08:55)
[2022-11-21] MEDS: NEPHROCAPS PO SCH (08:55)
[2022-11-21] MEDS: ASPIRIN 81 MG ECTAB PO SCH (08:55)
[2022-11-21] MEDS: amLODIPine BESYLATE 5 MG TAB PO SCH (08:55)
[2022-11-21] MEDS: allopurinoL 100 MG TAB PO SCH (08:56)
[2022-11-21] MEDS: EZETIMIBE 10 MG TABLET PO SCH (08:56)
[2022-11-21] MEDS: FUROSEMIDE 40 MG TAB PO SCH (08:56)
[2022-11-21] MEDS: METOPROLOL TARTRATE 50 MG TAB PO SCH ×2 (08:56→20:55)
[2022-11-21] MEDS: PANTOprazole 40 MG TAB PO SCH (08:57)
[2022-11-21] MEDS: SEVELAMER HCL 800 MG TABLET PO SCH ×3 (08:57→17:48)
[2022-11-21] MEDS: HEPARIN SOD 5,000 UNIT/0.5 ML VIAL SQ SCH ×2 (08:57→20:56)
[2022-11-21] MEDS: CLOPIDOGREL BISULFATE 75 MG TAB PO SCH (08:57)
[2022-11-21] MEDS: NICOTINE 21 MG/24 HR TDSY TD SCH (08:58)
[2022-11-21] MEDS: INSULIN ASPART PER UNIT CHARGE SC SCH ×4 (09:04→21:45)
--- NOTE | 2022-11-21 10:16 | Pharmacy Report ---
Pharmacy PK ABX Note - Date of Service November 21, 2022 - Assessment and Plan Assessment 62 year old F receiving vancomycin for treatment of diabetic foot wound- post OR excision. Per hospitalist would like to treat for 5 days (achieved source control)- previous culture data with E. faecalis and Staph pseudintermedius. Patient is HD schedule MWF, will dose by levels. Day # 4/5 of antimicrobial therapy Plan Vancomycin * Current regimen: Dosing by Levels * Random level obtained this morning resulted as 17.4 mcg/mL.-no HD planned * Kinetics with levels suggest half life ~66hrs, ke 0.0104, approximate level tomorrow morning ~12, to avoid being subtherapeutic post-dialysis will give supplemental 500 mg dose x1 today * Repeat random level in AM prior to dialysis, patient still producing some urine. Pharmacy will continue to follow and will adjust dose/frequency as necessary. Thank you.
[2022-11-21] MEDS ORDERED: oxyCODONE HCL IR 5 MG TAB (IMMEDIATE RELEASE) PO PRN (11:04)
[2022-11-21] MEDS ORDERED: ACETAMINOPHEN 500 MG TAB PO PRN (11:04)
--- NOTE | 2022-11-21 11:23 | Hospitalist Progress Note ---
Date of Service November 21, 2022 Assessment & Plan (1) Osteomyelitis of left foot: Plan: Acute/unstable - moderate to high risk - secondary to PAD - Wound cultures 10/19/22 in [place] grew Staph pseudintermedius and E. faecalis both sensitive to vancomycin - Patient was on IV vancomycin with dialysis for 2 weeks, completed 11/12/22 - Presented to hospital for difficulty ambulating and deconditioning 2/2 foot wound; no evidence of systemic infection - CT with osteomyelitis of residual left fifth proximal phalanx - S/p left fifth toe amputation 11/14, returned to OR 11/17 for delayed primary closure - Per discussions with Dr. Dias, he feels that he achieved source control, will therefore treat any residual cellulitis with 5 days of vancomycin, which can be dosed during HD - Today day #4/5 - Continue daily dressing changes, elevation - Reviewed cbc, wbc WNL and H&H stable (2) Ambulatory dysfunction: Plan: Chronic/stable - low risk - Multifactorial to chronic comorbid disease as well as amputation of toe and osteomyelitis - PT/OT recommending rehab on discharge, case management assisting with this (3) DM II (diabetes mellitus, type II), controlled: Plan: Chronic/stable - Hemoglobin A1c 5.6% on 11/13/2022 - Basal insulin held for surgeries, however patient's blood sugars have been very well controlled - continue sliding scale insulin only for now (4) CAD (coronary artery disease): Plan: HTN/CAD/HLD Chronic/stable - Continue amlodipine, clopidogrel, Imdur, lisinopril, metoprolol tartrate, and aspirin - Patient denies any chest pain or tightness - Continue home dose of 40 mg of p.o. furosemide and follow strict I/Os - Continue Zetia & Lipitor (5) ESRD (end stage renal disease) on dialysis: Plan: Chronic/stable - with anemia of chronic disease - Hemodialysis MWF - Nephrology consulted while admitted for HD orders - Continue nephrocaps - Chemistry reviewed, no electrolyte derangements, Cr 4.11 (6) Tobacco abuse: Plan: Chronic/unstable - Patient continues to smoke daily, importance of smoking cessation has been discussed this admission - Continue nicotine patch daily (7) PAD (peripheral artery disease): Plan: Chronic/unstable - Continued necrosis at re-approximation site - Consider referral to vascular - ?addition of pletal as opposed to plavix given extent of PAD - 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 Patent bilateral lower exam he arteries with extensive atherosclerotic vascular disease. Predominantly monophasic waveforms bilaterally. 2. In the right leg, greatest stenosis is at the common femoral artery with estimated 50-74% based on peak systolic velocity criteria. 3. In the left leg, greatest stenosis is at the proximal SFA with estimated stenosis of 50-74% based on peak systolic velocity criteria. Plan [facility] patient on Wednesday 11/22 - Will need updated PT notes today. Medically stable for dc once facility able to accept and i nsurance auth received. AM labs have been ordered. Will d/w Dr. Rocha. Admission and Anticipated Discharge Date Admission Date: November 12, 2022 Annette Hudson was seen on rounds this morning. Reports pain in her L foot seems controlled, but mainly with IV narcotics. She states the "oxycodone does nothing." She denies cp, dyspnea, f/c, headache, or gu symptoms. Physical Exam Physical Exam: GENERAL: 62 yo wd/wn chronically ill appearing F. AAOx4. NAD. LUNGS: Clear to auscultation bilaterally w/o W/R/R. CARDIOVASCULAR: Regular rate and rhythm EXTREMITIES: RUE AV fistula noted. No LE edema noted. L foot incision with necrosis at approximation site. Sutures intact. No drainage or active bleeding. Results & Data Results & Data Vital Signs (Past 12 Hours) Vital Signs Temp Pulse Resp BP Pulse Ox O2 Del Method 11/21/22 07:35 37.0 C 62 16 152/54 H 97 Room Air Laboratory Results 11/21/22 05:38 11/21/22 05:38 PG Care Time/CCT Total # of Minutes Spent Total Time Spent with Patient: Total time spent is greater than 50% in coordination of care (as documented) at patient's floor/unit and/or counseling patient: Coding Level of Care Code 97088 SUB INP/OBS CARE 2/35MIN Diagnoses Osteomyelitis of left foot M86.9 Ambulatory dysfunction R26.2 DM II (diabetes mellitus, type II), controlled E11.9 CAD (coronary artery disease) I25.10 ESRD (end stage renal disease) on dialysis N18.6; Z99.2 Tobacco abuse Z72.0 PAD (peripheral artery disease) I73.9
[2022-11-21] MEDS ORDERED: VANCOMYCIN HCL 500 MG in NSS 100mL IV ONE (12:00)
[2022-11-21] MEDS: ISOSORBIDE MONO EXTENDED REL 30 MG TABCR PO SCH (20:56)
[2022-11-21] MEDS: ZOLPIDEM TARTRATE 5 MG TAB PO SCH (20:56)
[2022-11-21] MEDS: ATORVASTATIN 40 MG TAB PO SCH (20:56)
[2022-11-22] MEDS: oxyCODONE HCL IR 5 MG TAB (IMMEDIATE RELEASE) PO PRN ×2 (02:59→13:45)
[2022-11-22] MEDS: LEVOTHYROXINE SODIUM 125 MCG TABLET PO SCH (06:18)
[2022-11-22] MEDS ORDERED: SODIUM CHLORIDE 0.9% 1000ML 1,000 ML IV PRN (07:00)
[2022-11-22] MEDS ORDERED: HEPARIN SOD (PORCINE) 1000 UNIT/ML IV SCH (07:00)
--- NOTE | 2022-11-22 08:47 | Pharmacy Report ---
Pharmacy PK ABX Note - Date of Service November 22, 2022 - Assessment and Plan Assessment 62 year old F receiving vancomycin for treatment of diabetic foot wound- post OR excision. Per hospitalist would like to treat for 5 days (achieved source control)- previous culture data with E. faecalis and Staph pseudintermedius. Patient is HD schedule MWF, will dose by levels. Day #5/5 of antimicrobial therapy Plan Vancomycin * Current regimen: Dosing by Levels * Random level obtained this morning resulted as 20.5 mcg/mL.- HD planned * No additional dosing today. Pharmacy will continue to follow and will adjust dose/frequency as necessary. Thank you.
[2022-11-22] MEDS: SEVELAMER HCL 800 MG TABLET PO SCH ×2 (09:01→13:28)
--- NOTE | 2022-11-22 09:10 | Nephrology Progress Note ---
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 * Will schedule HD today and provide 3 L UF * Outpatient HD MWF [facility] (3 hours, F-180NR, Qb 400/Qd 600, 2K, 35 HCO3, 137 Na, EDW 60.5 kg) * If discharge is anticipated, please have patient resume outpatient MWF HD at [facility] (2) HTN (hypertension): Plan: * BP remains acceptable * Continue lisinopril, clonidine, metoprolol, Imdur, and amlodipine as per home Rx (3) Anemia: Plan: * s/p 1 unit PRBC 11/12 * Epogen 10,000 IV on 11/15 * Venofer 100 mg and Epogen 20,000 units with HD 11/19/22 (4) Weakness: Plan: * [facility] in [place] has accepted patient following hospital discharge (5) Osteomyelitis: Plan: * L 5th ray amputation 11/14/[address] Dias Plan Admission and Anticipated Discharge Date Admission Date: November 12, 2022 Subjective Mrs. Hudson was evaluated in her hospital room this morning. She reports that her foot discomfort is improved. She is anxious to be discharged from the hospital Review of Systems Review of Systems: Constitutional: no fever Eyes: no problem reported Ear, Nose, Mouth, Throat: no problem reported Respiratory: no problem reported Cardiovascular: no chest pain Gastrointestinal: no abdominal pain, no nausea, no vomiting and no diarrhea/l oose stools Physical Exam Constitutional: not in distress Eyes: PERRL, conjunctivae normal, anicteric sclerae ENMT: external ear and nose normal, oropharynx normal Neck: trachea midline, no thyromegaly Respiratory: normal respiratory effort, lungs clear to auscultation Cardiovascular: Rate/Rhythm: regular rate and regular rhythm Heart Sounds: + murmur (soft systolic murmur) Gastrointestinal (Abdomen): normal bowel sounds, soft, nontender, no hepatosplenomegaly Musculoskeletal: Extremities: no cyanosis Neurologic: Speech / Cognition: normal speech and normal cognition Results & Data Vital Signs (Past 12 Hours) Vital Signs Temp Pulse Resp BP Pulse Ox O2 Del Method 11/22/22 07:25 36.9 C 61 16 131/97 91 Room Air PG Care Time/CCT Total # of Minutes Spent Total Time Spent with Patient: Total time spent is greater than 50% in coordination of care (as documented) at patient's floor/unit and/or counseling patient: Coding Level of Care Code 52812 SUB INP/OBS CARE 3/50MIN Diagnoses ESRD (end stage renal disease) on dialysis N18.6; Z99.2 HTN (hypertension) I10 Anemia D64.9 Weakness R53.1 Osteomyelitis M86.9 Laterality: left Osteomyelitis location: foot Osteomyelitis type: unspecified type (5) Osteomyelitis Laterality: left Osteomyelitis location: foot Osteomyelitis type: unspecified type Qualified Code(s): M86.9 - Osteomyelitis, unspecified
[2022-11-22] MEDS: INSULIN ASPART PER UNIT CHARGE SC SCH ×2 (09:18→14:13)
[2022-11-22] MEDS: HEPARIN SOD (PORCINE) 1000 UNIT/ML IV SCH ×2 (10:28→11:37)
--- NOTE | 2022-11-22 11:58 | Discharge Summary ---
Date of Service November 22, 2022 Admission HPI Per Admitting Provider Jacqui is a 62 year old female with a PMH significant for ESRD on HD MWF (Follows with Dr. Mckeon), DM II, HLD, CAD S/P PCI and WILLIAM placement x 2 approximately 1 year ago, Hypothyroidism, insomnia, and current left foot infe ction, currently receiving outpatient vancomycin. In the ED the patient was noted to be stable. Labs were significant for a leukopenia of 4.17, Cr of 2.69 with stable electrolytes, high sen trop of 15, and covid 19 negative. Chest xray was negative for acute findings. CT of the left foot without IV con was read as "1. A soft tissue ulceration is suggested overlying the fifth metatarsal head with evidence of surrounding cellulitis. No organized/drainable fluid collection is seen on this unenhanced examination. 2. Erosive/destructive changes are present within the base of the fifth proximal phalanx. This likely represents osteomyelitis. Correlate clinically. 3. The fifth middle and distal phalanges and the first distal phalanx are not identified and may be surgically absent. Correlate clinically. 4. No additional foci of destructive bony change are are seen throughout the remainder of the foot. No fracture is identified.". We were asked to admit the patient for further evaluation/treatment of her osteomyelitis and rehab placement. At the time of the exam the patient was lying in bed in no acute distress. She states that she has been dealing with an infection at her left fifth toe a mputation site since it was amputated approximately 2 months ago at [facility]. [facility] [place] from 10/19/22 grew Staph Pseudintermedius and Enterococcus faecalis both sensitive to vancomycin. She had been receiving Vancomycin in coordination with her dialysis appointments. She states that she had two doses of vancomycin last week and three doses this week. She had her last dose of vancomycin earlier today and also notes a full dialysis session today. She came to the ED today because she is too weak for she and her family to care for her at this time. Over the past 3-4 months she has had multiple mechanical falls at home due to ambulatory dysfunction from her left foot infection. She still has a bruise on her right cheek from a fall which occur approximately 3 weeks ago. This fall occurred in her kitchen when she was walking to the family room. She feel and hit her face but denies losing consciousness. She was evaluated at the [facility] ED and states that she had imaging of her head and face that were negative for any fractures or bleeding. We discussed code status, she wishes to be a DNR/DNI and would want her to make medical decisions for her if she cannot make them herself. Please refer to Dr. Franks's attestation for any changes to the treatment plan Principal Diagnosis Osteomyelitis L foot Discharge Exam GENERAL: 62 yo wd/wn chronically ill appearing F. AAOx4. NAD. LUNGS: Clear to auscultation bilaterally w/o W/R/R. CARDIOVASCULAR: Regular rate and rhythm EXTREMITIES: RUE AV fistula noted. No LE edema noted. L foot incision with necrosis at approximation site. Sutures intact. No drainage or active bleeding. Discharge Data Allergies Allergy/AdvReac Type Severity Reaction Status Date / Time morphine Allergy Severe Hallucinati Unverified 11/12/22 19:08 ng codeine Allergy Intermediate Redness of Unverified 11/12/22 19:08 Skin prednisone Allergy Intermediate Itching Unverified 11/12/22 19:08 Consultations 11/12/22 17:42 ED Decision to Admit Stat 11/12/22 17:56 Consult Nephrology Routine 11/12/22 17:57 Consult Podiatry Routine Procedures Performed Operation Date: 11/17/22 10:45 Actual Procedures p Left Foot Delayed Primary Closure(Left) - Yong Dias, JEFFRY, MS Ordered Studies Chest X-Ray 11/12/22 14:26 XR chest 1V portable CLINICAL HISTORY: weakness TECHNIQUE: Single frontal radiograph of the chest was obtained. Comparison: None available at the time of this dictation. FINDINGS: No recorded versus previous pacemaker is seen. Calcified aortic knob is seen. The lungs are clear. No evidence of pleural effusion or pneumothorax. IMPRESSION: No acute chest disease. ACT 112: Negative or not required by law. Electronically signed by: Richard Chirinos M.D. 11/12/2022 3:[address] 11/12/22 14:42 CT SCAN OF THE LEFT FOOT WITHOUT IV CONTRAST CLINICAL HISTORY: Foot infection. COMPARISON STUDY: No priors. TECHNIQUE: CT scan of the left foot is performed from the ankle to the base of the foot. Images are reviewed in the axial, sagittal, and coronal planes. IV contrast was not administered for this examination. A dose lowering technique was utilized adhering to the principles of ALARA. Note that interpretation is significantly suboptimal without plain film correlate. CT DOSE: 291.20 mGy.cm FINDINGS: The skeletal structures are heterogeneously osteopenic. No acute fracture is seen. The ankle mortise is intact. The first distal phalanx is not identified and presumed surgically absent. A soft tissue ulceration is suggested overlying the fifth metatarsal. There is erosive/destructive change involving the fifth proximal phalanx, likely representing osteomyelitis. The fifth middle and distal phalanges are not visualized. There is significant inflammation with soft tissue gas and fluid seen overlying the distal fifth metatarsal. No organized/drainable fluid collection is identified to suggest abscess on this unenhanced examination. No additional foci of bony erosion are seen. Mild arthritic changes are seen throughout the foot. There are small dorsal and plantar calcaneal enthesophytes. The Achilles tendon is intact as visualized. Moderate soft tissue edema is seen throughout the remainder of the foot and ankle. Atherosclerotic calcification is observed in the regional arteries. IMPRESSION: 1. A soft tissue ulceration is suggested overlying the fifth metatarsal head with evidence of surrounding cellulitis. No organized/drainable fluid collection is seen on this unenhanced examination. 2. Erosive/destructive changes are present within the base of the fifth proximal phalanx. This likely represents osteomyelitis. Correlate clinically. 3. The fifth middle and distal phalanges and the first distal phalanx are not identified and may be surgically absent. Correlate clinically. 4. No additional foci of destructive bony change are are seen throughout the remainder of the foot. No fracture is identified. ACT 112: Negative or not required by law. Dictated: 11/12/2022 4:31 PM Transcribed: 11/12/2022 4:55 PM Néstor [id number] Electronically signed by: Frank Jones M.D. 11/12/2022 5:17 PM Duplex Scan Lower Extremity Artery 11/12/22 17:40 Exam(s): US ARTERIAL BILATERAL LOWER EXTREMITIES EXAM: US Duplex Bilateral Lower Extremities Arteries CLINICAL HISTORY: Reason for exam: diabetic ulcers. TECHNIQUE: Real-time duplex ultrasound scan of the bilateral lower extremity arteries integrating B-mode two-dimensional vascular structure, Doppler spectral analysis and color flow Doppler imaging. COMPARISON: No relevant prior studies available. FINDINGS: There is extensive atherosclerotic vascular disease in the right lower extremity arteries without arterial occlusion in either leg. RIGHT LOWER EXTREMITY Common femoral artery: 217 cm/s, triphasic. Deep femoral artery: 65 cm/s, biphasic. Proximal SFA: 127 cm/s, triphasic. Mid SFA: 137 cm/s, biphasic. Distal SFA: 85 cm/s, monophasic. Proximal popliteal artery: 72 cm/s, monophasic. Distal popliteal artery: 93 cm/s, monophasic. Proximal posterior tibial artery: 92 cm/s, monophasic. Distal posterior tibial artery: 119 cinders per second, monophasic. Proximal anterior tibial artery: 43 cm/s, monophasic. Distal anterior tibial artery: 6 cm/s, monophasic. Proximal peroneal artery: 128 cm/s, monophasic. Distal peroneal artery: 74 cm/s, monophasic. Dorsalis pedis artery: 41 cm/s, monophasic. LEFT LOWER EXTREMITY Common femoral artery: 185 cm/s, triphasic. Deep femoral artery: 137 cm/s, monophasic. Proximal SFA: 295 cm/s, monophasic. Mid SFA: 160 cm/s, monophasic. Distal SFA: 103 cm/s, monophasic. Proximal popliteal artery: 186 cm/s, monophasic. Proximal posterior tibial artery: 79 cm/s, monophasic. Distal posterior tibial artery: 31 cm/s, monophasic. Proximal anterior tibial artery: 95 cm/s, monophasic. Distal anterior tibial artery: 69 cm/s, monophasic. Proximal peroneal artery: 99 cinders per second, monophasic. Distal peroneal artery: 28 cm/s, monophasic. Dorsalis pedis artery: 53 cm/s, monophasic. IMPRESSION: 1. Patent bilateral lower exam he arteries with extensive atherosclerotic vascular disease. Predominantly monophasic waveforms bilaterally. 2. In the right leg, greatest stenosis is at the common femoral artery with estimated 50-74% based on peak systolic velocity criteria. 3. In the left leg, greatest stenosis is at the proximal SFA with estimated stenosis of 50-74% based on peak systolic velocity criteria. Electronically signed by: Marya Cintron M.D. 11/12/22 20:39 PM Hospital Course (1) Osteomyelitis of left foot: L foot OM secondary to PAD - Wound cultures 10/19/22 in [place] grew Staph pseudintermedius and E. faecalis both sensitive to vancomycin - Patient was on IV vancomycin with dialysis for 2 weeks, completed 11/12/22 - Presented to hospital for difficulty ambulating and deconditioning 2/2 foot wound; no evidence of systemic infection - CT with osteomyelitis of residual left fifth proximal phalanx - S/p left fifth toe amputation 11/14, returned to OR 11/17 for delayed primary closure - Per discussions with Dr. Dias, he feels that he achieved source control, will therefore treat any residual cellulitis with 5 days of vancomycin, which can be dosed during HD - Completes Vancomycin therapy today (11/22), day #5/5 - Continue daily dressing changes, elevation - will need close f/u with Dr. Dias as outpatient (2) Ambulatory dysfunction: Chronic/stable - low risk - Multifactorial to chronic comorbid disease as well as amputation of toe and os teomyelitis - PT/OT recommending rehab on discharge, case management assisting with this (3) DM II (diabetes mellitus, type II), controlled: Chronic/stable - Hemoglobin A1c 5.6% on 11/13/2022 - Basal insulin held for surgeries, however patient's blood sugars have been very well controlled - continue sliding scale insulin only for now, mostly only requiring 1-2 units or not given at all - No plan to continue insulin upon d/c - she should continue with dietary control and could consider addition of Januvia 25mg daily but will defer to pcp (4) CAD (coronary artery disease): HTN/CAD/HLD Chronic/stable - Continue amlodipine, clopidogrel, Imdur, lisinopril, metoprolol tartrate, and aspirin - Has been w/o chest pain or tightness - Continue home dose of 40 mg of p.o. furosemide - Continue Zetia & Lipitor (5) ESRD (end stage renal disease) on dialysis: Chronic/stable - with anemia of chronic disease - Hemodialysis MWF - Nephrology consulted while admitted for HD orders - Continue nephrocaps and sevelamer and f/u with nephrology as per her usual schedule (6) Tobacco abuse: Chronic/unstable - Patient continues to smoke daily, importance of smoking cessation has been discussed this admission - Continue nicotine patch daily (7) PAD (peripheral artery disease): Chronic/unstable - Continued necrosis at re-approximation site - Consider referral to vascular - ?addition of pletal as opposed to plavix given extent of PAD - 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 Patent bilateral lower exam he arteries with extensive atherosclerotic vascular disease. Predominantly monophasic waveforms bilaterally. 2. In the right leg, greatest stenosis is at the common femoral artery with estimated 50-74% based on peak systolic velocity criteria. 3. In the left leg, greatest stenosis is at the proximal SFA with estimated stenosis of 50-74% based on peak systolic velocity criteria. Plan Patient is medically and hemodynamically stable for discharge to acute rehab today. She will need f/u with Dr. Dias which has been scheduled for her on her behalf. Wound care at SNF daily. Plan d/w Dr. Rocha who is in agreement. Total Time Total Time Spent Total Time Spent (In Minutes): 40 Discharge Plan Discharge Items Patient Disposition: Transfer Assisted Fac Reason For Visit: LEFT FOOT WOUND, NEED FOR PLACEMENT Discharge Diagnosis: left foot bone infection Condition on Discharge: Good Activity: As commented below Activity Comment: non weightbearing on L foot Non-emergency contact: Primary Care Provider, Surgeon and Supervisor Char House Call non-emergency contact if: you have any medication questions and your symptoms worsen Follow-up/Referrals: Yong Dias DPM, MS [Physician] - 11/30/22 12:00 pm (ADDRESS FOR APPOINTMENT: [address], [address] [facility] [address] Enter Emergency room entrance take elevators to 3rd floor. ) Christina Alcantar PA-C [Primary Care Provider] - Diet: Carb Consistent or DM2 Addtl Attending Provider Instructions: You were hospitalized due to infection in the bone of your left foot. You were taken to surgery and completed a course of antibiotics through you IV. You will need to continue with daily dressing changes and follow up with Dr. Dias as instructed. Keeping off of this foot will be important to ensure that it heals properly. Physical and occupational therapy worked with you and determined that you would benefit from going to rehab. A bed has been found for you at [facility] where you will be transported. You will be monitored by a medical team while you are there and would encourage close follow up with your family doctor when you are discharged from the facility. You will continue on your schedule of dialysis on Tuesday, Tuesday, and Tuesday. Keep your routine scheduled follow up with your kidney doctors. If you have questions after you leave the hospital, feel free to call the nonemergency number listed on your discharge paperwork. Pending Studies at Discharge: No Stand-Alone Forms: My [facility] Skilled Items Patient informed of condition?: Yes DNR: Yes Discharge Level of Care: Skilled Communicable Disease: No Discharge Prognosis: Stable Lines: None Urinary Catheter: No Medications and DC Order Prescriptions: New oxycodone 5 mg tablet 5 mg PO Q4H Qty: 20 0RF Rx Instructions: 1 tab (5mg) q4h prn pain scale 4-6 2 tabs (10mg) q4h prn pain scale 7-10 Continued furosemide [Lasix] 40 mg tablet 40 mg PO DAILY latanoprost 0.005 % drops 1 drp ophthalmic (eye) HS atorvastatin [Lipitor] 40 mg tablet 40 mg PO HS clonidine HCl 0.1 mg tablet 0.1 mg PO DAILY isosorbide mononitrate 30 mg tablet extended release 24 hr 30 mg PO HS amlodipine 2.5 mg tablet 2.5 mg PO DAILY clopidogrel 75 mg tablet 75 mg PO DAILY allopurinol 100 mg tablet 100 mg PO DAILY esomeprazole magnesium [Nexium] 40 mg capsule,delayed release(DR/EC) 40 mg PO DAILY levothyroxine 125 mcg tablet 125 mcg PO QAM metoprolol tartrate 50 mg tablet See Rx Instructions .ROUTE .COMPLEX Rx Instructions: Take 50mg by mouth in the morning and 100mg by mouth at bedtime nitroglycerin 0.4 mg tablet, sublingual See Rx Instructions .ROUTE .COMPLEX Rx Instructions: Take 1 tablet by mouth every 5 minutes X3 for chest pain as needed aspirin 81 mg tablet,chewable 81 mg PO DAILY zolpidem [Ambien] 5 mg tablet 5 mg PO DAILY albuterol sulfate 90 mcg/actuation HFA aerosol inhaler 1 puff INHALATION QID PRN (Reason: bad cough) lisinopril [Zestril] 40 mg tablet 40 mg PO DAILY loratadine 10 mg tablet 10 mg PO DAILY gentamicin 0.1 % ointment 1 applic TOPICAL DAILY ezetimibe 10 mg tablet 10 mg PO DAILY sevelamer carbonate 800 mg tablet 0 mg PO TID Rx Instructions: Patient takes 2400mg by mouth once daily (pt states they only eat once daily) cholecalciferol (vitamin D3) 50 mcg (2,000 unit) tablet 50 mcg PO DAILY Prolia 60 mg/mL syringe 60 mg SUBCUT Q6M melatonin 10 mg capsule 10 mg PO HS ascorbic acid (vitamin C) 500 mg capsule 500 mg PO DAILY RenaPlex-D 800 mcg-12.5 mg -2,000 unit tablet 1 tab PO DAILY insulin lispro [Humalog Tempo Pen(U-100)Insuln] 100 unit/mL insulin pen 0 - 10 sliding scale dose SUBCUT QID docusate sodium [Colace] 100 mg Capsule 100 mg PO DAILY amitriptyline 100 mg tablet 100 mg PO HS Discontinued meloxicam 15 mg tablet 15 mg PO DAILY Discharge Orders: Discharge Order (Routine); Ordered 11/22/22 Ordered By: Brigida Greco Admission Data Admit Date/Time: 11/12/22 17:55 Attending Provider: Barrett Rocha Admit Provider: Albaro Franks Primary Care Provider: Christina Alcantar Other Providers: Mirian Leung ; Albaro Franks ; Isabelle Gardiner ; Yong Dias Coding Level of Care Code 49406 INP/OBS DISCH >30 MIN Diagnoses Osteomyelitis of left foot M86.9 Ambulatory dysfunction R26.2 DM II (diabetes mellitus, type II), controlled E11.9 CAD (coronary artery disease) I25.10 ESRD (end stage renal disease) on dialysis N18.6; Z99.2 Tobacco abuse Z72.0 PAD (peripheral artery disease) I73.9
[2022-11-22] MEDS: FUROSEMIDE 40 MG TAB PO SCH (13:28)
[2022-11-22] MEDS: amLODIPine BESYLATE 5 MG TAB PO SCH (13:28)
[2022-11-22] MEDS: NEPHROCAPS PO SCH (13:28)
[2022-11-22] MEDS: lisinopril 40 MG TAB PO SCH (13:29)
[2022-11-22] MEDS: ASPIRIN 81 MG ECTAB PO SCH (13:29)
[2022-11-22] MEDS: EZETIMIBE 10 MG TABLET PO SCH (13:29)
[2022-11-22] MEDS: CHOLECALCIFEROL 1,000 UNITS 25 MCG TAB PO SCH (13:30)
[2022-11-22] MEDS: PANTOprazole 40 MG TAB PO SCH (13:30)
[2022-11-22] MEDS: allopurinoL 100 MG TAB PO SCH (13:30)
[2022-11-22] MEDS: METOPROLOL TARTRATE 50 MG TAB PO SCH (13:30)
[2022-11-22] MEDS: HEPARIN SOD 5,000 UNIT/0.5 ML VIAL SQ SCH (13:31)
[2022-11-22] MEDS: CLOPIDOGREL BISULFATE 75 MG TAB PO SCH (13:31)
[2022-11-22] MEDS: NICOTINE 21 MG/24 HR TDSY TD SCH (13:32)
== END 2022-11-22 14:56 | DRG 617 ==
LOC: ED 14:11 → 3N 17:55 → SUATTDRO 17:55 → 3N 20:15

== ENCOUNTER 2022-12-25 12:05 | Inpatient (IN) ==
--- NOTE | 2022-12-25 12:24 | Emergency Department Note ---
ED Provider Note History of Present Illness Chief Complaint: Foot Injury/Pain Stated Complaint: LEFT FOOT PAIN, SURGERY TOMORROW Time Seen by Provider: 12/25/22 12:23 This is a 62-year-old female with a history of peripheral arterial disease, type 2 diabetes, end-stage renal disease on dialysis Tuesday, hypertension, tobacco abuse, peripheral arterial disease, who is referred to the emergency department by her bee rancher Dr. Dias for nonhealing wound to the left foot. Patient states Dr. Dias would like her to be admitted for debridement and wound VAC placement. Patient had fifth toe resection 1.5 months ago secondary to nonhealing wounds and osteomyelitis. She has had difficulty with the wound ever since. She was seen by Dr. Dias several times over the past few weeks, and at her most recent visit, due to the condition of the wound was referred to the hospital today. Patient denies any fevers, chills, body aches, red streaks traveling up her leg. She had dialysis yesterday, no complications. Has not been on any antibiotics lately. Patient has had other partial toe amputations in the past. She has a chronic wound on the bottom of her right foot monitored by home care nursing. She denies any changes in this wound lately. Has a history of skin discoloration/ahmadi hue to her bilateral lower extremities which she states is her baseline. Has seen vascular in the past. Denies any recent falls. Home Medications Medication Instructions Recorded Confirmed Type albuterol sulfate 90 mcg/actuation 1 puff inhalation QID PRN bad cough 11/12/22 12/25/22 History aerosol inhaler allopurinol 100 mg tablet 100 mg PO DAILY 11/12/22 12/25/22 History amitriptyline 100 mg tablet 100 mg PO HS 11/12/22 12/25/22 History amlodipine 2.5 mg tablet 2.5 mg PO DAILY 11/12/22 12/25/22 History ascorbic acid (vitamin C) 500 mg 500 mg PO DAILY 11/12/22 12/25/22 History capsule aspirin 81 mg chewable tablet 81 mg PO DAILY 11/12/22 12/25/22 History atorvastatin 40 mg tablet (Lipitor) 40 mg PO HS 11/12/22 12/25/22 History cholecalciferol (vitamin D3) 50 50 mcg PO DAILY 11/12/22 12/25/22 History mcg (2,000 unit) tablet clonidine HCl 0.1 mg tablet 0.1 mg PO DAILY 11/12/22 12/25/22 History clopidogrel 75 mg tablet 75 mg PO DAILY 11/12/22 12/25/22 History denosumab 60 mg/mL subcutaneous 60 mg subcut Q6M 11/12/22 12/25/22 History syringe (Prolia) docusate sodium 100 mg capsule 100 mg PO DAILY PRN Constipation 11/12/22 12/25/22 History (Colace) esomeprazole magnesium 40 mg 40 mg PO DAILY 11/12/22 12/25/22 History capsule,delayed release (Nexium) ezetimibe 10 mg tablet 10 mg PO DAILY 11/12/22 12/25/22 History furosemide 40 mg tablet (Lasix) 40 mg PO DAILY 11/12/22 12/25/22 History isosorbide mononitrate 30 mg 30 mg PO HS 11/12/22 12/25/22 History tablet,extended release 24 hr latanoprost 0.005 % eye drops 1 drp ophthalmic (eye) HS 11/12/22 12/25/22 History levothyroxine 125 mcg tablet 125 mcg PO QAM 11/12/22 12/25/22 History lisinopril 40 mg tablet (Zestril) 40 mg PO DAILY 11/12/22 12/25/22 History loratadine 10 mg tablet 10 mg PO DAILY 11/12/22 12/25/22 History melatonin 10 mg capsule 10 mg PO HS 11/12/22 12/25/22 History metoprolol tartrate 50 mg tablet See Rx Instructions .Route .COMPLEX 11/12/22 12/25/22 History nitroglycerin 0.4 mg sublingual See Rx Instructions .Route .COMPLEX 11/12/22 12/25/22 History tablet sevelamer carbonate 800 mg tablet 800 mg PO TID 11/12/22 12/25/22 History vit B,C-folic ac 800 mcg-zinc 12.5 1 tab PO DAILY 11/12/22 12/25/22 History mg-selen-D3 2,000 unit-vit E tablet (RenaPlex-D) zolpidem 5 mg tablet (Ambien) 5 mg PO HS 11/12/22 12/25/22 History oxycodone 5 mg tablet 5 mg PO Q4H #20 tabs 11/22/22 12/25/22 Rx insulin aspart U-100 100 unit/mL 2 sliding scale dose subcut 12/25/22 12/25/22 History (3 mL) subcutaneous pen (Novolog .TIDWMEALS FlexPen U-100 Insulin aspart) Allergies Allergy/AdvReac Type Severity Reaction Status Date / Time morphine Allergy Severe Hallucinati Unverified 12/25/22 15:17 ng codeine Allergy Intermediate Redness of Unverified 12/25/22 15:17 Skin prednisone Allergy Intermediate Itching Unverified 12/25/22 15:17 Past Med/Surg History Medical History Anemia CAD (coronary artery disease) CHF (congestive heart failure) DM II (diabetes mellitus, type II), controlled ESRD (end stage renal disease) on dialysis HD -. Follows with Dr. Mckeon HTN (hypertension) Hypothyroidism Osteomyelitis of left foot Tobacco abuse Weakness Surgical History S/P drug eluting coronary stent placement Social History Smoking Status: Current every day smoker Cigarettes Per Day: 6; Second Hand Exposure: No; Do You Dip or Chew Tobacco: No; Hx Alcohol Use: No Hx Substance Use: No Preferred Language: [place] Communication Ability: Effective [employer]st Required: No Beliefs That Will Affect Care: None Current Living Situation: Spouse and Family Feels Safe at Home: Yes Assistive Devices: Denture - Upper, Denture - Lower, Walker and Wheelchair Physical Exam Vital Signs Vital Signs - 24 hr 12/25/22 12:11 12/25/22 14:48 12/25/22 17:01 Temperature 97.2 F L Temperature Source Temporal Artery Scan Pulse Rate 56 L Pulse Rate [Right Finger] 82 78 Respiratory Rate 18 18 18 Respiratory Effort / Characteristics Non-Labored Spontaneous Respiratory Depth Normal Respiratory Pattern Regular Blood Pressure 105/49 L Blood Pressure [Left Arm] 170/95 H 175/76 H Blood Pressure Mean 67 Blood Pressure Mean [Left Arm] 120 109 Blood Pressure Position Sitting Pulse Oximetry 99 99 98 Oxygen Delivery Method Room Air Room Air Room Air Sepsis Recent Fever Within 48 Hours No Sepsis New/Unexplained Change in Mental Status N/A Sepsis Action Taken by Nursing No Action Required CONSTITUTIONAL: Well developed, well nourished, in no acute distress resting com fortably. HEAD: Normocephalic, atraumatic. NECK: Full active range of motion. RESPIRATORY: Breathing unlabored and symmetric. Lungs clear to auscultation bilaterally. No wheeze, rales, or rhonchi. CARDIOVASCULAR: Regular rate and rhythm. No murmurs, rubs, or gallops. Bilateral feet in warm to touch. However unable to palpate DP or PT pulses bilaterally. Capillary refill to 3 seconds bilaterally. Dusky appearance to bilateral anterior lower extremities, baseline per patient MUSCULOSKELETAL: Left lower extremity: Relatively large open wound located on the lateral aspect of the foot with dry gangrene and mild purulence. No surrounding erythema. First toe has been partially resected. No lymphatic streaking. SKIN: [place], warm, dry. Dusky appearance to bilateral anterior lower legs, ba brenda per patient. NEUROLOGIC: Awake, alert, oriented. Gaze is conjugate. Face symmetric. Decrease d sensation in bilateral feet, baseline per patient PSYCHIATRIC: Appropriate. Normal affect. Course Administered Medications Discontinued Medications Piperacillin Sod/Tazobactam Sod (Zosyn) 4.5 gm in 120 mls @ 240 mls/hr IV NOW ONE Stop: 12/25/22 16:14 Last Admin: 12/25/22 16:28 Dose: Not Given Documented By: QGV Medical Decision Making Differential Diagnosis Dry gangrene, wet gangrene, abscess, osteomyelitis, cellulitis, diabetic wound, peripheral vascular disease, among other pathology Medical Records Attestation: I reviewed the patient's medical records. (Reviewed prior surgery notes from podiatry) Laboratory Data 12/25/22 13:23 12/25/22 13:23 Lab Results 12/25/22 12/25/22 12/25/22 Range/Units 13:23 13:23 16:06 WBC 8.97 (4.8-10.8) K/ul RBC 3.51 L (4.20-5.40) M/uL Hgb 11.7 L (12.0-16.0) g/dl Hct 33.5 L (37.0-47.0) % MCV 95.4 (80.0-100.0) fL MCH 33.3 (25.0-34.0) pg MCHC 34.9 (32.0-36.0) g/dL RDW Std Deviation 48.6 H (36.4-46.3) fL RDW Coeff of Evette 13.8 (11.5-14.5) % Plt Count 236 (130-400) K/uL MPV 10.7 (9.4-12.4) fL Immature Gran % (Auto) 0.3 % Neut % (Auto) 73.5 % Lymph % (Auto) 18.2 % [place] % (Auto) 5.8 % Eos % (Auto) 1.9 % Baso % (Auto) 0.3 % Neut # (Auto) 6.59 H (1.40-6.50) K/uL Lymph # (Auto) 1.63 (1.2-3.4) K/uL [place] # (Auto) 0.52 (0.11-0.59) K/uL Eos # (Auto) 0.17 (0-0.50) K/uL Baso # (Auto) 0.03 (0-0.2) K/uL Immature Gran # (Auto) 0.03 (0.01-0.20) K/uL ESR 32 H (0-30) mm/hr Sodium 134 L (136-145) mmol/L Potassium 4.2 (3.5-5.1) mmol/L Chloride 94 L (98-107) mmol/L Carbon Dioxide 34 H (21-32) mmol/L Anion Gap 6 (3-11) BUN 20 (6-23) mg/dl Creatinine 3.70 H (0.6-1.2) mg/dl Est Cr Clr Drug Dosing Not Reportable Est GFR ( Amer) 14.5 ml/min Est GFR (Non-Af Amer) 12.5 ml/min BUN/Creatinine Ratio 5.4 L (10-20) Glucose 244 H (70-99(Fasting)) mg/dl Calcium 9.4 (8.6-10.3) mg/dl Total Bilirubin 0.4 (0.2-1.0) mg/dl AST 34 (13-39) U/L ALT 37 (7-52) U/L Alkaline Phosphatase 132 H (34-104) U/L C-Reactive Protein < 0.50 (0-0.5) mg/dl Total Protein 7.3 (6.0-8.3) gm/dl Albumin 3.7 (3.4-5.0) gm/dl Globulin 3.6 (2.5-4.0) gm/dl Albumin/Globulin Ratio 1.0 (0.9-2) Procalcitonin (0-0.5) ng/ml SARS-CoV-2, RNA, NAAT (NEGATIVE) 12/25/22 12/25/22 Range/Units 16:06 16:40 WBC (4.8-10.8) K/ul RBC (4.20-5.40) M/uL Hgb (12.0-16.0) g/dl Hct (37.0-47.0) % MCV (80.0-100.0) fL MCH (25.0-34.0) pg MCHC (32.0-36.0) g/dL RDW Std Deviation (36.4-46.3) fL RDW Coeff of Evette (11.5-14.5) % Plt Count (130-400) K/uL MPV (9.4-12.4) fL Immature Gran % (Auto) % Neut % (Auto) % Lymph % (Auto) % [place] % (Auto) % Eos % (Auto) % Baso % (Auto) % Neut # (Auto) (1.40-6.50) K/uL Lymph # (Auto) (1.2-3.4) K/uL [place] # (Auto) (0.11-0.59) K/uL Eos # (Auto) (0-0.50) K/uL Baso # (Auto) (0-0.2) K/uL Immature Gran # (Auto) (0.01-0.20) K/uL ESR (0-30) mm/hr Sodium (136-145) mmol/L Potassium (3.5-5.1) mmol/L Chloride (98-107) mmol/L Carbon Dioxide (21-32) mmol/L Anion Gap (3-11) BUN (6-23) mg/dl Creatinine (0.6-1.2) mg/dl Est Cr Clr Drug Dosing Est GFR ( Amer) ml/min Est GFR (Non-Af Amer) ml/min BUN/Creatinine Ratio (10-20) Glucose (70-99(Fasting)) mg/dl Calcium (8.6-10.3) mg/dl Total Bilirubin (0.2-1.0) mg/dl AST (13-39) U/L ALT (7-52) U/L Alkaline Phosphatase (34-104) U/L C-Reactive Protein (0-0.5) mg/dl Total Protein (6.0-8.3) gm/dl Albumin (3.4-5.0) gm/dl Globulin (2.5-4.0) gm/dl Albumin/Globulin Ratio (0.9-2) Procalcitonin 0.05 (0-0.5) ng/ml SARS-CoV-2, RNA, NAAT NEGATIVE (NEGATIVE) Imaging Data Attestation: I personally reviewed and interpreted this imaging study as follows: (I agree with the radiologist's interpretation) Radiologist's Impression: Foot X-Ray 12/25/22 12:41 XR foot LT min 3V routine CLINICAL HISTORY: wound with possible osteo, lateral metatarsal COMPARISON STUDY: Left foot CT 11/12/2022. FINDINGS: Status post partial resection of the distal left fifth metatarsal. Irregularity at the resection edge is nonspecific but favors postoperative change. An underlying osteomyelitis would be difficult to exclude. Prior partial resection of the left first toe. Mild vascular calcifications are noted. No acute fracture or dislocation. Small plantar and posterior calcaneal spurs are noted. IMPRESSION: Status post partial resection of the distal left fifth metatarsal. Irregularity at the resection edge is nonspecific but favors postoperative change. An underlying osteomyelitis would be difficult to exclude. ACT 112: Negative or not required by law. Electronically signed by: Mark Stevens M.D. 12/25/2022 1:19 PM MDM Narrative 62-year-old female is referred to the emergency department by her bee rancher for admission for debridement and wound VAC placement secondary to nonhealing wound located on the left foot, recently had fifth ray resection 1.5 months ago and has had difficulty with the wound ever since. The wound does appear to have a dry gangrene appearance with some mild purulence, no surrounding erythema. Bilateral lower extremities have a dusky appearance which sounds like her baseline given her peripheral arterial disease, fortunately capillary refill is 2 to 3 seconds bilaterally. Feet are warm. Patient overall well-appearing in no acute distress, stable. Culture was obtained. Basic labs were obtained. IV was inserted X-ray shows an irregularity at the resection edge of the left fifth metatarsal felt to be likely postoperative change but underlying osteomyelitis would be difficult to exclude. Labs: No leukocytosis. Mild anemia hemoglobin 11.7 though this is improved from last month (hemoglobin 8.5). Sodium and chloride minimally low not requiring immediate intervention, possibly secondary to dietary. Creatinine 3.7 expected due to dialysis. Glucose elevated at 244 -known diabetic. I spoke with Dr. Dias who requested that the patient be admitted under medicine and he plans to debride the wound tomorrow in the OR and will place a wound VAC. He initially had requested IV antibiotics due to the concerning finding on x-ray, however after I discussed the case with Dr. Franks ([facility]) he again spoke with Dr. Dias and we will hold off on antibiotics for now. Patient will be admitted under the hospitalist service. Impression Open wound of left foot Discharge Plan Visit Data Chief Complaint: Foot Injury/Pain Stated Complaint: LEFT FOOT PAIN, SURGERY TOMORROW ED Provider: Manolo Skelton ED Midlevel Provider: Michel Ferrera Discharge Problem: Open wound of left foot Patient Disposition: Admitted As Inpatient Condition: Fair Prescriptions Prescriptions: No Action furosemide [Lasix] 40 mg tablet 40 mg PO DAILY latanoprost 0.005 % drops 1 drp ophthalmic (eye) HS atorvastatin [Lipitor] 40 mg tablet 40 mg PO HS clonidine HCl 0.1 mg tablet 0.1 mg PO DAILY isosorbide mononitrate 30 mg tablet extended release 24 hr 30 mg PO HS amlodipine 2.5 mg tablet 2.5 mg PO DAILY clopidogrel 75 mg tablet 75 mg PO DAILY allopurinol 100 mg tablet 100 mg PO DAILY esomeprazole magnesium [Nexium] 40 mg capsule,delayed release(DR/EC) 40 mg PO DAILY levothyroxine 125 mcg tablet 125 mcg PO QAM metoprolol tartrate 50 mg tablet See Rx Instructions .ROUTE .COMPLEX Rx Instructions: Take 50mg by mouth in the morning and 100mg by mouth at bedtime nitroglycerin 0.4 mg tablet, sublingual See Rx Instructions .ROUTE .COMPLEX Rx Instructions: Take 1 tablet by mouth every 5 minutes X3 for chest pain as needed aspirin 81 mg tablet,chewable 81 mg PO DAILY zolpidem [Ambien] 5 mg tablet 5 mg PO HS albuterol sulfate 90 mcg/actuation HFA aerosol inhaler 1 puff INHALATION QID PRN (Reason: bad cough) lisinopril [Zestril] 40 mg tablet 40 mg PO DAILY loratadine 10 mg tablet 10 mg PO DAILY ezetimibe 10 mg tablet 10 mg PO DAILY sevelamer carbonate 800 mg tablet 800 mg PO TID cholecalciferol (vitamin D3) 50 mcg (2,000 unit) tablet 50 mcg PO DAILY Prolia 60 mg/mL syringe 60 mg SUBCUT Q6M melatonin 10 mg capsule 10 mg PO HS ascorbic acid (vitamin C) 500 mg capsule 500 mg PO DAILY RenaPlex-D 800 mcg-12.5 mg -2,000 unit tablet 1 tab PO DAILY docusate sodium [Colace] 100 mg Capsule 100 mg PO DAILY PRN (Reason: Constipation) amitriptyline 100 mg tablet 100 mg PO HS oxycodone 5 mg tablet 5 mg PO Q4H Qty: 20 0RF Rx Instructions: 1 tab (5mg) q4h prn pain scale 4-6 2 tabs (10mg) q4h prn pain scale 7-10 insulin aspart U-100 [Novolog FlexPen U-100 Insulin] 100 unit/mL (3 mL) Insulin Pen 2 sliding scale dose SUBCUT .TIDWMEALS Referrals Referrals: Christina Alcantar PA-C [Primary Care Provider] - Open wound of left foot Qualifiers: Encounter type: initial encounter Qualified Code(s): S91.302A - Unspecified open wound, left foot, initial encounter
--- NOTE | 2022-12-25 13:21 | XRay Report ---
XR foot LT min 3V routine CLINICAL HISTORY: wound with possible osteo, lateral metatarsal COMPARISON STUDY: Left foot CT 11/12/2022. FINDINGS: Status post partial resection of the distal left fifth metatarsal. Irregularity at the rese ction edge is nonspecific but favors postoperative change. An underlying osteomyelitis would be diffi cult to exclude. Prior partial resection of the left first toe. Mild vascular calcifications are note d. No acute fracture or dislocation. Small plantar and posterior calcaneal spurs are noted. IMPRESSION: Status post partial resection of the distal left fifth metatarsal. Irregularity at the r esection edge is nonspecific but favors postoperative change. An underlying osteomyelitis would be di fficult to exclude. ACT 112: Negative or not required by law. Electronically signed by: Mark Stevens M.D. 12/25/2022 1:19 PM
[2022-12-25 14:05] LABS: Basophils # (auto) 0.03 K/uL (0-0.2); Basophils % (auto) 0.3 %; Eosinophils # (auto) 0.17 K/uL (0-0.50); Eosinophils % (auto) 1.9 %; Hematocrit (blood only) 33.5 % (37.0-47.0); Hemoglobin 11.7 g/dl (12.0-16.0); Immature Granulocytes # (auto) 0.03 K/uL (0.01-0.20); Immature Granulocytes % (auto) 0.3 %; Lymphocytes # (auto) 1.63 K/uL (1.2-3.4); Lymphocytes % (auto) 18.2 %; Mean Corpuscular Hemoglobin 33.3 pg (25.0-34.0); Mean Corpuscular Hgb Conc 34.9 g/dL (32.0-36.0); Mean Corpuscular Volume 95.4 fL (80.0-100.0); Mean Platelet Volume 10.7 fL (9.4-12.4); Monocytes # (auto) 0.52 K/uL (0.11-0.59); Monocytes % (auto) 5.8 %; Neutrophils # (auto) 6.59 K/uL (1.40-6.50); Neutrophils % (auto) 73.5 %; Platelet Count 236 K/uL (130-400); RDW Coefficient of Variation 13.8 % (11.5-14.5); RDW Standard Deviation 48.6 fL (36.4-46.3); Red Blood Count 3.51 M/uL (4.20-5.40); White Blood Count 8.97 K/ul (4.8-10.8)
[2022-12-25 14:22] LABS: Alanine Aminotransferase 37 U/L (7-52); Albumin Level 3.7 gm/dl (3.4-5.0); Alkaline Phosphatase 132 U/L (34-104); Anion Gap 6 (3-11); Aspartate Aminotransferase 34 U/L (13-39); BUN Creatinine Ratio 5.4 (10-20); Bilirubin,Total 0.4 mg/dl (0.2-1.0); Blood Urea Nitrogen 20 mg/dl (6-23); Calcium 9.4 mg/dl (8.6-10.3); Carbon Dioxide 34 mmol/L (21-32); Chloride 94 mmol/L (98-107); Est GFR (African American) 14.5 ml/min; Est GFR (Non-African American) 12.5 ml/min; Globulin 3.6 gm/dl (2.5-4.0); Glucose 244 mg/dl (70-99(Fasting)); Potassium 4.2 mmol/L (3.5-5.1); Sodium 134 mmol/L (136-145); Total Protein 7.3 gm/dl (6.0-8.3)
[2022-12-25] MEDS ORDERED: PIPERACILLIN/TAZOBACTAM 4.5 GM/120 ML BAG IV ONE (15:45)
[2022-12-25 16:27] LABS: C Reactive Protein < 0.50 mg/dl (0-0.5)
--- NOTE | 2022-12-25 16:30 | History & Physical Report ---
Date of Service December 25, 2022 Assessment & Plan (1) Open wound of left foot: Plan: Will defer antibiotics as discussed with Dr Dias prior to getting a good surgical wound culture NPO after midnight, no IV fluids due to dialysis patient Consult podiatry (2) PAD (peripheral artery disease): Plan: Continue DAPT and atorvastatin Left leg - greatest stenosis is at the proximal SFA with estimated stenosis of 50-74% based on peak systolic velocity criteria. Do not suspect this requires intervention but may wish to discuss with vascular surgery on Tuesday. (3) ESRD (end stage renal disease) on dialysis: Plan: Consult nephrology - no urgent need for dialysis Continue her usual medications (4) HTN (hypertension): Plan: Continue her usual medication regimen Plan VTE Prophylaxis - deferred pending surgical decision, start heparin SQ post operatively Diet - dialysis renal T2DM, NPO after midnight Disposition - admit to med/surg Admission and Anticipated Discharge Date Admission Date: December 25, 2022 History of Present Illness Chief Complaint: Left infected wound Primary Care Provider: Christina Alcantar PA-C Jacqui Hudson is a 62 year old female with end stage renal disease on dialysis who presents ot the ER on 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 She denies any fever or chills. She was recently hospitalized from November 12 - 2022 due to osteomyelitis of her left foot. On November 15 she underwent left 5th ray amputation, application of wound vac dressing, subsequently on November 17 she underwent left foot delayed primary closure performed by Dr Dias. She was referred to the emergency department today and recommend requiring a debridement under anesthesia. She denies any shortness of breath or chest pain. Allergies Allergy/AdvReac Type Severity Reaction Status Date / Time morphine Allergy Severe Hallucinati Unverified 12/25/22 15:17 ng codeine Allergy Intermediate Redness of Unverified 12/25/22 15:17 Skin prednisone Allergy Intermediate Itching Unverified 12/25/22 15:17 Home Medications Medication Instructions Recorded Confirmed Type albuterol sulfate 90 mcg/actuation 1 puff inhalation QID PRN bad cough 11/12/22 12/25/22 History aerosol inhaler allopurinol 100 mg tablet 100 mg PO DAILY 11/12/22 12/25/22 History amitriptyline 100 mg tablet 100 mg PO HS 11/12/22 12/25/22 History amlodipine 2.5 mg tablet 2.5 mg PO DAILY 11/12/22 12/25/22 History ascorbic acid (vitamin C) 500 mg 500 mg PO DAILY 11/12/22 12/25/22 History capsule aspirin 81 mg chewable tablet 81 mg PO DAILY 11/12/22 12/25/22 History atorvastatin 40 mg tablet (Lipitor) 40 mg PO HS 11/12/22 12/25/22 History cholecalciferol (vitamin D3) 50 50 mcg PO DAILY 11/12/22 12/25/22 History mcg (2,000 unit) tablet clonidine HCl 0.1 mg tablet 0.1 mg PO DAILY 11/12/22 12/25/22 History clopidogrel 75 mg tablet 75 mg PO DAILY 11/12/22 12/25/22 History denosumab 60 mg/mL subcutaneous 60 mg subcut Q6M 11/12/22 12/25/22 History syringe (Prolia) docusate sodium 100 mg capsule 100 mg PO DAILY PRN Constipation 11/12/22 12/25/22 History (Colace) esomeprazole magnesium 40 mg 40 mg PO DAILY 11/12/22 12/25/22 History capsule,delayed release (Nexium) ezetimibe 10 mg tablet 10 mg PO DAILY 11/12/22 12/25/22 History furosemide 40 mg tablet (Lasix) 40 mg PO DAILY 11/12/22 12/25/22 History isosorbide mononitrate 30 mg 30 mg PO HS 11/12/22 12/25/22 History tablet,extended release 24 hr latanoprost 0.005 % eye drops 1 drp ophthalmic (eye) HS 11/12/22 12/25/22 History levothyroxine 125 mcg tablet 125 mcg PO QAM 11/12/22 12/25/22 History lisinopril 40 mg tablet (Zestril) 40 mg PO DAILY 11/12/22 12/25/22 History loratadine 10 mg tablet 10 mg PO DAILY 11/12/22 12/25/22 History melatonin 10 mg capsule 10 mg PO HS 11/12/22 12/25/22 History metoprolol tartrate 50 mg tablet See Rx Instructions .Route .COMPLEX 11/12/22 12/25/22 History nitroglycerin 0.4 mg sublingual See Rx Instructions .Route .COMPLEX 11/12/22 12/25/22 History tablet sevelamer carbonate 800 mg tablet 800 mg PO TID 11/12/22 12/25/22 History vit B,C-folic ac 800 mcg-zinc 12.5 1 tab PO DAILY 11/12/22 12/25/22 History mg-selen-D3 2,000 unit-vit E tablet (RenaPlex-D) zolpidem 5 mg tablet (Ambien) 5 mg PO HS 11/12/22 12/25/22 History oxycodone 5 mg tablet 5 mg PO Q4H #20 tabs 11/22/22 12/25/22 Rx insulin aspart U-100 100 unit/mL 2 sliding scale dose subcut 12/25/22 12/25/22 History (3 mL) subcutaneous pen (Novolog .TIDWMEALS FlexPen U-100 Insulin aspart) Past Med/Surg History Medical History Anemia CAD (coronary artery disease) CHF (congestive heart failure) DM II (diabetes mellitus, type II), controlled ESRD (end stage renal disease) on dialysis HD . Follows with Dr. 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 Beliefs That Will Affect Care: None Current Living Situation: Family Other Information That Helps Us Care for You: No Feels Safe at Home: Yes Safety Concerns: Feels Safe At This Time Assistive Devices: Bedside Commode, Hospital Bed and Walker Review of Systems Review of Systems: All systems reviewed & are unremarkable except as noted in HPI & below Physical Exam Constitutional: WD/WN, vitals as above ENMT: external ear and nose normal, oropharynx normal Respiratory: normal respiratory effort, lungs clear to auscultation Cardiovascular: Rate/Rhythm: regular rate and regular rhythm Heart Sounds: + murmur (systolic) Extremities: normal capillary refill and + pedal edema; no calf tenderness Gastrointestinal (Abdomen): normal bowel sounds, soft, nontender, no hepatosplenomegaly Skin: healthy dialysis AV fistula on right antecubital fossa Left foot surgical wound with eschar formation but no surrounding cellulitic changes Neurologic: moves all extremities and awake; not confused Psychiatric: A+Ox3, euthymic affect Results & Data Results & Data Vital Signs (Past 12 Hours) Vital Signs Temp Pulse Pulse Resp BP BP Pulse Ox 12/25/22 14:48 82 18 170/95 H 99 12/25/22 12:11 36.2 C L 56 L 18 105/49 L 99 O2 Del Method 12/25/22 14:48 Room Air 12/25/22 12:11 Room Air Laboratory Results Abnormal lab results 12/25/22 12/25/22 12/25/22 Range/Units 13:23 13:23 16:06 RBC 3.51 L (4.20-5.40) M/uL Hgb 11.7 L (12.0-16.0) g/dl Hct 33.5 L (37.0-47.0) % RDW Std Deviation 48.6 H (36.4-46.3) fL Neut # (Auto) 6.59 H (1.40-6.50) K/uL ESR 32 H (0-30) mm/hr Sodium 134 L (136-145) mmol/L Chloride 94 L (98-107) mmol/L Carbon Dioxide 34 H (21-32) mmol/L Creatinine 3.70 H (0.6-1.2) mg/dl BUN/Creatinine Ratio 5.4 L (10-20) Glucose 244 H (70-99(Fasting)) mg/dl POC Glucose (70-99) mg/dl Alkaline Phosphatase 132 H (34-104) U/L Diagnostic Findings XR foot LT min 3V routine CLINICAL HISTORY: wound with possible osteo, lateral metatarsal COMPARISON STUDY: Left foot CT 11/12/2022. FINDINGS: Status post partial resection of the distal left fifth metatarsal. Irregularity at the resection edge is nonspecific but favors postoperative change. An underlying osteomyelitis would be difficult to exclude. Prior partial resection of the left first toe. Mild vascular calcifications are noted. No acute fracture or dislocation. Small plantar and posterior calcaneal spurs are noted. IMPRESSION: Status post partial resection of the distal left fifth metatarsal. Irregularity at the resection edge is nonspecific but favors postoperative change. An underlying osteomyelitis would be difficult to exclude. Medications Administered ER Medications Given: None (IV Zosyn discontinued prior to being given) Code Status & VTE Plan Code Status DNR/DNI per patient wishes VTE Prophylaxis Plan VTE Prophylaxis will be ordered: Yes PG Care Time/CCT Total # of Minutes Spent Total Time Spent with Patient: Total time spent is greater than 50% in coordination of care (as documented) at patient's floor/unit and/or counseling patient: Coding Level of Care Code 97051 INT INP/OBS CARE MIN Diagnoses Open wound of left foot S91.302A Encounter type: initial encounter PAD (peripheral artery disease) I73.9 ESRD (end stage renal disease) on dialysis N18.6; Z99.2 HTN (hypertension) I10 (1) Open wound of left foot Encounter type: initial encounter Qualified Code(s): S91.302A - Unspecified open wound, left foot, initial encounter
[2022-12-25] MEDS: LATANOPROST 0.005% OP SOLN 2.5 ML BTL OP SCH (19:53)
[2022-12-25] MEDS: METOPROLOL TARTRATE 50 MG TAB PO SCH (19:54)
[2022-12-25] MEDS: AMITRIPTYLINE HCL 100 MG TAB PO SCH (19:54)
[2022-12-25] MEDS: ATORVASTATIN 40 MG TAB PO SCH (19:54)
[2022-12-25] MEDS: ISOSORBIDE MONO EXTENDED REL 30 MG TABCR PO SCH (19:55)
[2022-12-25] MEDS: SEVELAMER HCL 800 MG TABLET PO SCH (19:56)
[2022-12-25] MEDS: ZOLPIDEM TARTRATE 5 MG TAB PO SCH (20:04)
[2022-12-25] MEDS ORDERED: GLUCAGON FOR INJ 1 MG VIAL SQ PRN (21:58)
[2022-12-25] MEDS ORDERED: GLUCOSE 10 TAB/TUBE PO PRN (21:58)
[2022-12-25] MEDS ORDERED: CARBOHYDRATES FOR HYPOGLYCEMIA PO PRN (21:58)
[2022-12-25] MEDS ORDERED: GLUCOSE 40% GEL 15 GM TUBE PO PRN (21:58)
[2022-12-25] MEDS ORDERED: DEXTROSE 50% 50 ML SYRINGE IV PRN (21:58)
[2022-12-26] MEDS: LEVOTHYROXINE SODIUM 125 MCG TABLET PO SCH (05:33)
[2022-12-26] MEDS: PANTOprazole 40 MG TAB PO SCH (07:27)
[2022-12-26] MEDS: SEVELAMER HCL 800 MG TABLET PO SCH ×3 (07:27→17:08)
[2022-12-26] MEDS: lisinopril 40 MG TAB PO SCH (07:27)
[2022-12-26] MEDS: LORATADINE 10 MG TAB PO SCH (07:28)
[2022-12-26] MEDS: FUROSEMIDE 40 MG TAB PO SCH (07:28)
[2022-12-26] MEDS: CEROVITE ADV FORMULA TAB PO SCH (07:28)
[2022-12-26] MEDS: CLOPIDOGREL BISULFATE 75 MG TAB PO SCH (07:28)
[2022-12-26] MEDS: METOPROLOL TARTRATE 50 MG TAB PO SCH ×2 (07:28→19:33)
[2022-12-26] MEDS: ASPIRIN 81 MG CHEW PO SCH (07:29)
[2022-12-26] MEDS: amLODIPine BESYLATE 5 MG TAB PO SCH (07:29)
[2022-12-26] MEDS: INSULIN ASPART PER UNIT CHARGE SC SCH ×4 (07:29→20:53)
[2022-12-26] MEDS: allopurinoL 100 MG TAB PO SCH (07:29)
[2022-12-26] MEDS: cloNIDine HCL 0.1 MG TAB PO SCH (07:30)
[2022-12-26] MEDS ORDERED: fentaNYL citrate PF 100 MCG/2 ML VIAL ONE (07:40)
--- NOTE | 2022-12-26 07:41 | Anesthesiology Consultation ---
Date of Service December 26, 2022 Assessment & Plan Chart Review Chart Review: Acceptable Risk for Surgery and Patient NOT seen in Pre Admission Testing Consults Requested none ASA ASA4 Proposed Anesthesia Anesthesia Type: MAC History Surgery Operation Date: 12/26/22 09:00 Proposed Procedures p Incision and Drainage Left Foot(Left) - Yong Dias, DPM, MS Height/Weight Height: 5 ft 2 in Weight: 59.2 kg Allergies Allergy/AdvReac Type Severity Reaction Status Date / Time morphine Allergy Severe Hallucinati Unverified 12/25/22 15:17 ng codeine Allergy Intermediate Redness of Unverified 12/25/22 15:17 Skin prednisone Allergy Intermediate Itching Unverified 12/25/22 15:17 Medications Home Medications Medication Instructions Recorded Confirmed Last Taken albuterol sulfate 90 mcg/actuation 1 puff inhalation QID PRN bad cough 11/12/22 12/25/22 Unknown aerosol inhaler allopurinol 100 mg tablet 100 mg PO DAILY 11/12/22 12/25/22 12/25/22 amitriptyline 100 mg tablet 100 mg PO HS 11/12/22 12/25/22 12/24/22 amlodipine 2.5 mg tablet 2.5 mg PO DAILY 11/12/22 12/25/22 12/25/22 ascorbic acid (vitamin C) 500 mg 500 mg PO DAILY 11/12/22 12/25/22 12/25/22 capsule aspirin 81 mg chewable tablet 81 mg PO DAILY 11/12/22 12/25/22 12/25/22 atorvastatin 40 mg tablet (Lipitor) 40 mg PO HS 11/12/22 12/25/22 12/24/22 cholecalciferol (vitamin D3) 50 50 mcg PO DAILY 11/12/22 12/25/22 12/25/22 mcg (2,000 unit) tablet clonidine HCl 0.1 mg tablet 0.1 mg PO DAILY 11/12/22 12/25/22 12/25/22 clopidogrel 75 mg tablet 75 mg PO DAILY 11/12/22 12/25/22 12/25/22 denosumab 60 mg/mL subcutaneous 60 mg subcut Q6M 11/12/22 12/25/22 7 Months Ago syringe (Prolia) ~05/27/22 docusate sodium 100 mg capsule 100 mg PO DAILY PRN Constipation 11/12/22 12/25/22 Unknown (Colace) esomeprazole magnesium 40 mg 40 mg PO DAILY 11/12/22 12/25/22 12/25/22 capsule,delayed release (Nexium) ezetimibe 10 mg tablet 10 mg PO DAILY 11/12/22 12/25/22 12/25/22 furosemide 40 mg tablet (Lasix) 40 mg PO DAILY 11/12/22 12/25/22 12/25/22 isosorbide mononitrate 30 mg 30 mg PO HS 11/12/22 12/25/22 12/24/22 tablet,extended release 24 hr latanoprost 0.005 % eye drops 1 drp ophthalmic (eye) HS 11/12/22 12/25/22 12/24/22 levothyroxine 125 mcg tablet 125 mcg PO QAM 11/12/22 12/25/22 12/25/22 lisinopril 40 mg tablet (Zestril) 40 mg PO DAILY 11/12/22 12/25/22 12/25/22 loratadine 10 mg tablet 10 mg PO DAILY 11/12/22 12/25/22 12/25/22 melatonin 10 mg capsule 10 mg PO HS 11/12/22 12/25/22 12/24/22 metoprolol tartrate 50 mg tablet See Rx Instructions .Route .COMPLEX 11/12/22 12/25/22 12/25/22 nitroglycerin 0.4 mg sublingual See Rx Instructions .Route .COMPLEX 11/12/22 12/25/22 Unknown tablet sevelamer carbonate 800 mg tablet 800 mg PO TID 11/12/22 12/25/22 12/25/22 vit B,C-folic ac 800 mcg-zinc 12.5 1 tab PO DAILY 11/12/22 12/25/22 12/25/22 mg-selen-D3 2,000 unit-vit E tablet (RenaPlex-D) zolpidem 5 mg tablet (Ambien) 5 mg PO HS 11/12/22 12/25/22 12/24/22 oxycodone 5 mg tablet 5 mg PO Q4H #20 tabs 11/22/22 12/25/22 12/25/22 insulin aspart U-100 100 unit/mL 2 sliding scale dose subcut 12/25/22 12/25/22 12/24/22 (3 mL) subcutaneous pen (Novolog .TIDWMEALS FlexPen U-100 Insulin aspart) Active Medications Generic Name Dose Route Start Last Admin Trade Name Artemioq PRN Reason Stop Dose Admin Allopurinol 100 mg 12/26/22 09:00 12/26/22 07:29 Allopurinol 100 Mg Tab PO 01/25/23 08:59 Not Given DAILY SHARIFA Amitriptyline HCl 100 mg 12/25/22 21:00 12/25/22 19:54 Amitriptyline Hcl 100 Mg Tab PO 01/24/23 20:59 100 mg HS SHARIFA Administration Amlodipine Besylate 2.5 mg 12/26/22 09:00 12/26/22 07:29 Amlodipine Besylate 5 Mg Tab PO 01/25/23 08:59 2.5 mg DAILY SHARIFA Administration Aspirin 81 mg 12/26/22 09:00 12/26/22 07:29 Aspirin 81 Mg Chew PO 01/25/23 08:59 Not Given DAILY SHARIFA Atorvastatin Calcium 40 mg 12/25/22 21:00 12/25/22 19:54 Atorvastatin 40 Mg Tab PO 01/24/23 20:59 40 mg HS SHARIFA Administration Clonidine HCl 0.1 mg 12/26/22 09:00 12/26/22 07:30 Clonidine Hcl 0.1 Mg Tab PO 01/25/23 08:59 0.1 mg DAILY SHARIFA Administration Clopidogrel Bisulfate 75 mg 12/26/22 09:00 12/26/22 07:28 Clopidogrel Bisulfate 75 Mg Tab PO 01/25/23 08:59 Not Given DAILY SHARIFA Furosemide 40 mg 12/26/22 09:00 12/26/22 07:28 Furosemide 40 Mg Tab PO 01/25/23 08:59 Not Given DAILY SHARIFA Insulin Aspart 0 units 12/26/22 07:30 12/26/22 07:29 Insulin Aspart Per Unit Charge SC 01/25/23 07:29 Not Given ACHS SHARIFA Isosorbide Mononitrate 30 mg 12/25/22 21:00 12/25/22 19:55 Isosorbide Mayes Extended Rel 30 Mg Tabcr PO 01/24/23 20:59 30 mg HS SHARIFA Administration Latanoprost 1 drops 12/25/22 21:00 12/25/22 19:53 Latanoprost 0.005% Op Soln 2.5 Ml Btl OP 01/24/23 20:59 1 drops HS SHARIFA Administration Levothyroxine Sodium 125 mcg 12/26/22 06:30 12/26/22 05:33 Levothyroxine Sodium 125 Mcg Tablet PO 01/25/23 06:29 125 mcg DAILYBB SHARIFA Administration Lisinopril 40 mg 12/26/22 09:00 12/26/22 07:27 Lisinopril 40 Mg Tab PO 01/25/23 08:59 40 mg DAILY SHARIFA Administration Loratadine 10 mg 12/26/22 09:00 12/26/22 07:28 Loratadine 10 Mg Tab PO 01/25/23 08:59 Not Given DAILY SHARIFA Metoprolol Tartrate 50 mg 12/26/22 09:00 12/26/22 07:28 Metoprolol Tartrate 50 Mg Tab PO 01/25/23 08:59 50 mg QAM SHARIFA Administration Metoprolol Tartrate 100 mg 12/25/22 21:00 12/25/22 19:54 Metoprolol Tartrate 50 Mg Tab PO 01/24/23 20:59 100 mg HS SHARIFA Administration Multivitamins/Minerals 1 tab 12/26/22 09:00 12/26/22 07:28 Cerovite Adv Formula Tab PO 01/25/23 08:59 Not Given DAILY SHARIFA Pantoprazole Sodium 40 mg 12/26/22 09:00 12/26/22 07:27 Pantoprazole 40 Mg Tab PO 01/25/23 08:59 40 mg DAILY SHARIFA Administration Protocol Sevelamer HCl 800 mg 12/25/22 21:00 12/26/22 07:27 Sevelamer Hcl 800 Mg Tablet PO 01/24/23 20:59 Not Given TIDM SHARIFA Zolpidem Tartrate 5 mg 12/25/22 21:00 12/25/22 20:04 Zolpidem Tartrate 5 Mg Tab PO 01/24/23 20:59 5 mg HS SHARIFA Administration Past Medical History Medical History Anemia CAD (coronary artery disease) CHF (congestive heart failure) DM II (diabetes mellitus, type II), controlled ESRD (end stage renal disease) on dialysis HD M-W-. Follows with Dr. Mckeon HTN (hypertension) Hypothyroidism Osteomyelitis of left foot Tobacco abuse Weakness PVD COPD Exercise / Class Metabolic Activity III < 4 Walking/Shop/Light housework Past Surgical History Surgical History S/P drug eluting coronary stent placement Past Anesthesia History No Hx of Anesthesia Complications and No Family Hx of Anesthesia Complications History of PONV No Hx of PONV and No Hx of Motion Sickness Social History Smoking Status: Current every day smoker tobacco type: cigarettes Smoking cigarettes per day: 6 Do You Dip or Chew Tobacco: No Hx Alcohol Use: No Hx Substance Use: No substance use type: does not use Physical Exam Vital Signs Last Vital Signs Temp 36.8 C 12/26/22 07:28 Pulse 61 12/26/22 07:28 Resp 16 12/26/22 07:28 BP 175/69 H 12/26/22 07:28 Pulse Ox 94 12/26/22 07:28 O2 Del Method Room Air 12/26/22 07:28 Testing Laboratory Results 12/25/22 13:23 12/25/22 13:23 12/25/22 15:42 Gram Stain - Final Foot,Left 12/26/22 12/25/22 06:33 20:30 POC Glucose 121 H 135 H Electrocardiogram Date: 11/12/22 Findings: + NSR @ (@ 62;LVH)
--- NOTE | 2022-12-26 08:21 | Hospitalist Progress Note ---
Date of Service December 26, 2022 Assessment & Plan (1) Open wound of left foot: Plan: Ongoing issues w/ foot for the past year. s/p LEFT 5th toe amputation w/ ongoing infection ESR32, CRP <0.5. Procal 0.05 Cx obtained on admission -- GNB on preliminary. Blood cultures pending from admission Abx deferred until able to get good surgical cx NPO this morning, podiatry on consult with Dr Dias S/P debridement and wound vac placement this morning 12/26 discussed w/ Dr Dias and able to get deep cultures Monitor OR cultures/tailor abx as able Start broad spectrum abx w/ Vanco/Cefepime in meantime Pain control/supportive care Ok w/ podiatry to start Heparin SQ for DVT prophylaxis post-op F/u labs and cultures on repeat and tailor abx as able (2) PAD (peripheral artery disease): Plan: Continue DAPT and atorvastatin Left leg - greatest stenosis is at the proximal SFA with estimated stenosis of 50-74% based on peak systolic velocity criteria. Do not suspect this requires intervention but may wish to discuss with vascular surgery on Tuesday. (3) ESRD (end stage renal disease) on dialysis: Plan: Consult nephrology - no urgent need for dialysis Continue her usual medications renal dose meds/avoid nephrotoxins as able Resuming usual HD schedule for tomorrow -- appreciate assistance from nephrology (4) HTN (hypertension): Plan: Continue her usual medication regimen BP stable 168/73 post-op Admission and Anticipated Discharge Date Admission Date: December 25, 2022 Supervising Physician Co-Signing Physician Notes The patient was not seen by me. The chart was reviewed. Case discussed with SKYLAR Payan. Agree with assessment and plan Subjective eval around 1130 post op, sitting up in bed, at bedside, doing well starting abx and discussed monitoring cultures. she has been having this issue ongoing for the past year per patient/. no current fever/chills, chest pain, shortness of breath. no yet eaten but is hungry. Not yet seen by Nephrology however appears will continuing usual HD schedule for tomorrow. Broad spectrum abx to begin now and will await cultures. Prelim w/ GNB. Questions/concerns addressed at this time. Physical Exam Constitutional: WD/WN, vitals as above sitting up in bed post-op, at bedside, NAD ENMT: external ear and nose normal, oropharynx normal mm slightly dry Respiratory: normal respiratory effort, lungs clear to auscultation Cardiovascular: Rate/Rhythm: regular rate and regular rhythm Heart Sounds: + murmur (systolic) Extremities: normal capillary refill and + pedal edema; no calf tenderness Gastrointestinal (Abdomen): normal bowel sounds, soft, nontender, no hepatosplenomegaly Skin: healthy dialysis AV fistula on right antecubital fossa dressing to LEFT foot c/d/i (did not remove), wound vac with brownish/bloody drainage in cannister Neurologic: moves all extremities and awake; not confused Psychiatric: A+Ox3, euthymic affect Results & Data Results & Data Vital Signs (Past 12 Hours) Vital Signs Temp Pulse Resp BP Pulse Ox O2 Del Method 12/26/22 08:00 Room Air 12/26/22 07:28 36.8 C 61 16 175/69 H 94 Room Air Laboratory Results 12/26/22 12/26/22 12/25/22 Range/Units 07:52 06:33 20:30 WBC (4.8-10.8) K/ul RBC (4.20-5.40) M/uL Hgb (12.0-16.0) g/dl Hct (37.0-47.0) % MCV (80.0-100.0) fL MCH (25.0-34.0) pg MCHC (32.0-36.0) g/dL RDW Std Deviation (36.4-46.3) fL RDW Coeff of Ev[place] (11.5-14.5) % Plt Count (130-400) K/uL MPV (9.4-12.4) fL Immature Gran % (Auto) % Neut % (Auto) % Lymph % (Auto) % [place] % (Auto) % Eos % (Auto) % Baso % (Auto) % Neut # (Auto) (1.40-6.50) K/uL Lymph # (Auto) (1.2-3.4) K/uL [place] # (Auto) (0.11-0.59) K/uL Eos # (Auto) (0-0.50) K/uL Baso # (Auto) (0-0.2) K/uL Immature Gran # (Auto) (0.01-0.20) K/uL ESR (0-30) mm/hr Sodium (136-145) mmol/L Potassium (3.5-5.1) mmol/L Chloride (98-107) mmol/L Carbon Dioxide (21-32) mmol/L Anion Gap (3-11) BUN (6-23) mg/dl Creatinine (0.6-1.2) mg/dl Est Cr Clr Drug Dosing Est GFR ( Amer) ml/min Est GFR (Non-Af Amer) ml/min BUN/Creatinine Ratio (10-20) Glucose (70-99(Fasting)) mg/dl POC Glucose 95 121 H 135 H (70-99) mg/dl Calcium (8.6-10.3) mg/dl Total Bilirubin (0.2-1.0) mg/dl AST (13-39) U/L ALT (7-52) U/L Alkaline Phosphatase (34-104) U/L C-Reactive Protein (0-0.5) mg/dl Total Protein (6.0-8.3) gm/dl Albumin (3.4-5.0) gm/dl Globulin (2.5-4.0) gm/dl Albumin/Globulin Ratio (0.9-2) Procalcitonin (0-0.5) ng/ml SARS-CoV-2, RNA, NAAT (NEGATIVE) 12/25/22 12/25/22 12/25/22 Range/Units 16:40 16:06 16:06 WBC (4.8-10.8) K/ul RBC (4.20-5.40) M/uL Hgb (12.0-16.0) g/dl Hct (37.0-47.0) % MCV (80.0-100.0) fL MCH (25.0-34.0) pg MCHC (32.0-36.0) g/dL RDW Std Deviation (36.4-46.3) fL RDW Coeff of Evette (11.5-14.5) % Plt Count (130-400) K/uL MPV (9.4-12.4) fL Immature Gran % (Auto) % Neut % (Auto) % Lymph % (Auto) % [place] % (Auto) % Eos % (Auto) % Baso % (Auto) % Neut # (Auto) (1.40-6.50) K/uL Lymph # (Auto) (1.2-3.4) K/uL [place] # (Auto) (0.11-0.59) K/uL Eos # (Auto) (0-0.50) K/uL Baso # (Auto) (0-0.2) K/uL Immature Gran # (Auto) (0.01-0.20) K/uL ESR 32 H (0-30) mm/hr Sodium (136-145) mmol/L Potassium (3.5-5.1) mmol/L Chloride (98-107) mmol/L Carbon Dioxide (21-32) mmol/L Anion Gap (3-11) BUN (6-23) mg/dl Creatinine (0.6-1.2) mg/dl Est Cr Clr Drug Dosing Est GFR ( Amer) ml/min Est GFR (Non-Af Amer) ml/min BUN/Creatinine Ratio (10-20) Glucose (70-99(Fasting)) mg/dl POC Glucose (70-99) mg/dl Calcium (8.6-10.3) mg/dl Total Bilirubin (0.2-1.0) mg/dl AST (13-39) U/L ALT (7-52) U/L Alkaline Phosphatase (34-104) U/L C-Reactive Protein (0-0.5) mg/dl Total Protein (6.0-8.3) gm/dl Albumin (3.4-5.0) gm/dl Globulin (2.5-4.0) gm/dl Albumin/Globulin Ratio (0.9-2) Procalcitonin 0.05 (0-0.5) ng/ml SARS-CoV-2, RNA, NAAT NEGATIVE (NEGATIVE) 12/25/22 12/25/22 Range/Units 13:23 13:23 WBC 8.97 (4.8-10.8) K/ul RBC 3.51 L (4.20-5.40) M/uL Hgb 11.7 L (12.0-16.0) g/dl Hct 33.5 L (37.0-47.0) % MCV 95.4 (80.0-100.0) fL MCH 33.3 (25.0-34.0) pg MCHC 34.9 (32.0-36.0) g/dL RDW Std Deviation 48.6 H (36.4-46.3) fL RDW Coeff of [place]ette 13.8 (11.5-14.5) % Plt Count 236 (130-400) K/uL MPV 10.7 (9.4-12.4) fL Immature Gran % (Auto) 0.3 % Neut % (Auto) 73.5 % Lymph % (Auto) 18.2 % [place] % (Auto) 5.8 % Eos % (Auto) 1.9 % Baso % (Auto) 0.3 % Neut # (Auto) 6.59 H (1.40-6.50) K/uL Lymph # (Auto) 1.63 (1.2-3.4) K/uL [place] # (Auto) 0.52 (0.11-0.59) K/uL Eos # (Auto) 0.17 (0-0.50) K/uL Baso # (Auto) 0.03 (0-0.2) K/uL Immature Gran # (Auto) 0.03 (0.01-0.20) K/uL ESR (0-30) mm/hr Sodium 134 L (136-145) mmol/L Potassium 4.2 (3.5-5.1) mmol/L Chloride 94 L (98-107) mmol/L Carbon Dioxide 34 H (21-32) mmol/L Anion Gap 6 (3-11) BUN 20 (6-23) mg/dl Creatinine 3.70 H (0.6-1.2) mg/dl Est Cr Clr Drug Dosing Not Reportable Est GFR ( Amer) 14.5 ml/min Est GFR (Non-Af Amer) 12.5 ml/min BUN/Creatinine Ratio 5.4 L (10-20) Glucose 244 H (70-99(Fasting)) mg/dl POC Glucose (70-99) mg/dl Calcium 9.4 (8.6-10.3) mg/dl Total Bilirubin 0.4 (0.2-1.0) mg/dl AST 34 (13-39) U/L ALT 37 (7-52) U/L Alkaline Phosphatase 132 H (34-104) U/L C-Reactive Protein < 0.50 (0-0.5) mg/dl Total Protein 7.3 (6.0-8.3) gm/dl Albumin 3.7 (3.4-5.0) gm/dl Globulin 3.6 (2.5-4.0) gm/dl Albumin/Globulin Ratio 1.0 (0.9-2) Procalcitonin (0-0.5) ng/ml SARS-CoV-2, RNA, NAAT (NEGATIVE) Diagnostic Findings Foot X-Ray 12/25/22 12:41 XR foot LT min 3V routine CLINICAL HISTORY: wound with possible osteo, lateral metatarsal COMPARISON STUDY: Left foot CT 11/12/2022. FINDINGS: Status post partial resection of the distal left fifth metatarsal. Irregularity at the resection edge is nonspecific but favors postoperative change. An underlying osteomyelitis would be difficult to exclude. Prior partial resection of the left first toe. Mild vascular calcifications are noted. No acute fracture or dislocation. Small plantar and posterior calcaneal spurs are noted. IMPRESSION: Status post partial resection of the distal left fifth metatarsal. Irregularity at the resection edge is nonspecific but favors postoperative change. An underlying osteomyelitis would be difficult to exclude. ACT 112: Negative or not required by law. Electronically signed by: Mark Stevens M.D. 12/25/2022 1:19 PM PG Care Time/CCT Total # of Minutes Spent Total Time Spent with Patient: Total time spent is greater than 50% in coordination of care (as documented) at patient's floor/unit and/or counseling patient: Coding Level of Care Code 19533 SUB INP/OBS CARE 3/50MIN Diagnoses Open wound of left foot S91.302A Encounter type: initial encounter PAD (peripheral artery disease) I73.9 ESRD (end stage renal disease) on dialysis N18.6; Z99.2 HTN (hypertension) I10 (1) Open wound of left foot Encounter type: initial encounter Qualified Code(s): S91.302A - Unspecified open wound, left foot, initial encounter
[2022-12-26 08:34] LABS: Basophils # (auto) 0.03 K/uL (0-0.2); Basophils % (auto) 0.4 %; Eosinophils % (auto) 2.8 %; Hematocrit (blood only) 29.7 % (37.0-47.0); Hemoglobin 10.1 g/dl (12.0-16.0); Immature Granulocytes # (auto) 0.01 K/uL (0.01-0.20); Immature Granulocytes % (auto) 0.1 %; Lymphocytes # (auto) 1.81 K/uL (1.2-3.4); Lymphocytes % (auto) 25.4 %; Mean Corpuscular Hemoglobin 32.1 pg (25.0-34.0); Mean Corpuscular Volume 94.3 fL (80.0-100.0); Mean Platelet Volume 10.7 fL (9.4-12.4); Monocytes # (auto) 0.52 K/uL (0.11-0.59); Monocytes % (auto) 7.3 %; Neutrophils # (auto) 4.57 K/uL (1.40-6.50); Platelet Count 193 K/uL (130-400); RDW Coefficient of Variation 13.5 % (11.5-14.5); RDW Standard Deviation 46.5 fL (36.4-46.3); Red Blood Count 3.15 M/uL (4.20-5.40); White Blood Count 7.14 K/ul (4.8-10.8)
[2022-12-26 08:49] LABS: BUN Creatinine Ratio 5.8 (10-20); Calcium 9.2 mg/dl (8.6-10.3); Creatinine Clr Calc Pharmacy 10.9 ml/min; Est GFR (African American) 12.1 ml/min; Est GFR (Non-African American) 10.4 ml/min; Potassium 4.2 mmol/L (3.5-5.1)
--- NOTE | 2022-12-26 09:00 | Orthopedic Consultation ---
Date of Consultation December 25, 2022 Assessment & Plan (1) Open wound of left foot: Patient seen, evaluated, and treated. Significant debris present on left foot wound requiring debridement. Discussed OR debridement and application of negative pressure therapy. Deep cultures to be obtained in OR. Patient scheduled for 12/26/22 (2) PAD (peripheral artery disease): History of Present Illness Attending Physician: Julian Betancourt MD History of Present Illness Patient is a type II diabetic, 62 year old female who is seen at bedside this evening for a non-healing left foot ulcer. Patient has past medical history significant for CAD, CHF, type II DM, ESRD on dialysis, HTN, Hypothyroidism, OM, tobacco use, and generalized weakness. Patient was recently hospitalized from November 12 - 2022 due to osteomyelitis of her left foot. On November 15 she underwent left 5th ray amputation, application of wound vac dressing, subsequently on November 17 she underwent left foot delayed primary closure. Allergies Allergy/AdvReac Type Severity Reaction Status Date / Time morphine Allergy Severe Hallucinati Unverified 12/25/22 15:17 ng codeine Allergy Intermediate Redness of Unverified 12/25/22 15:17 Skin prednisone Allergy Intermediate Itching Unverified 12/25/22 15:17 Home Medications Medication Instructions Recorded Confirmed Type albuterol sulfate 90 mcg/actuation 1 puff inhalation QID PRN bad cough 11/12/22 12/25/22 History aerosol inhaler allopurinol 100 mg tablet 100 mg PO DAILY 11/12/22 12/25/22 History amitriptyline 100 mg tablet 100 mg PO HS 11/12/22 12/25/22 History amlodipine 2.5 mg tablet 2.5 mg PO DAILY 11/12/22 12/25/22 History ascorbic acid (vitamin C) 500 mg 500 mg PO DAILY 11/12/22 12/25/22 History capsule aspirin 81 mg chewable tablet 81 mg PO DAILY 11/12/22 12/25/22 History atorvastatin 40 mg tablet (Lipitor) 40 mg PO HS 11/12/22 12/25/22 History cholecalciferol (vitamin D3) 50 50 mcg PO DAILY 11/12/22 12/25/22 History mcg (2,000 unit) tablet clonidine HCl 0.1 mg tablet 0.1 mg PO DAILY 11/12/22 12/25/22 History clopidogrel 75 mg tablet 75 mg PO DAILY 11/12/22 12/25/22 History denosumab 60 mg/mL subcutaneous 60 mg subcut Q6M 11/12/22 12/25/22 History syringe (Prolia) docusate sodium 100 mg capsule 100 mg PO DAILY PRN Constipation 11/12/22 12/25/22 History (Colace) esomeprazole magnesium 40 mg 40 mg PO DAILY 11/12/22 12/25/22 History capsule,delayed release (Nexium) ezetimibe 10 mg tablet 10 mg PO DAILY 11/12/22 12/25/22 History furosemide 40 mg tablet (Lasix) 40 mg PO DAILY 11/12/22 12/25/22 History isosorbide mononitrate 30 mg 30 mg PO HS 11/12/22 12/25/22 History tablet,extended release 24 hr latanoprost 0.005 % eye drops 1 drp ophthalmic (eye) HS 11/12/22 12/25/22 History levothyroxine 125 mcg tablet 125 mcg PO QAM 11/12/22 12/25/22 History lisinopril 40 mg tablet (Zestril) 40 mg PO DAILY 11/12/22 12/25/22 History loratadine 10 mg tablet 10 mg PO DAILY 11/12/22 12/25/22 History melatonin 10 mg capsule 10 mg PO HS 11/12/22 12/25/22 History metoprolol tartrate 50 mg tablet See Rx Instructions .Route .COMPLEX 11/12/22 12/25/22 History nitroglycerin 0.4 mg sublingual See Rx Instructions .Route .COMPLEX 11/12/22 12/25/22 History tablet sevelamer carbonate 800 mg tablet 800 mg PO TID 11/12/22 12/25/22 History vit B,C-folic ac 800 mcg-zinc 12.5 1 tab PO DAILY 11/12/22 12/25/22 History mg-selen-D3 2,000 unit-vit E tablet (RenaPlex-D) zolpidem 5 mg tablet (Ambien) 5 mg PO HS 11/12/22 12/25/22 History oxycodone 5 mg tablet 5 mg PO Q4H #20 tabs 11/22/22 12/25/22 Rx insulin aspart U-100 100 unit/mL 2 sliding scale dose subcut 12/25/22 12/25/22 History (3 mL) subcutaneous pen (Novolog .TIDWMEALS FlexPen U-100 Insulin aspart) Patient History Medical History Anemia CAD (coronary artery disease) CHF (congestive heart failure) DM II (diabetes mellitus, type II), controlled ESRD (end stage renal disease) on dialysis HD . Follows with Dr. Mckeon HTN (hypertension) Hypothyroidism Osteomyelitis of left foot Tobacco abuse Weakness Surgical History S/P drug eluting coronary stent placement Social History Smoking Status: Current every day smoker Cigarettes Per Day: 6; Second Hand Exposure: No; Do You Dip or Chew Tobacco: No; Tobacco Cessation Education Requested by Patient: Yes Hx Alcohol Use: No Hx Substance Use: No Preferred Language: Mohawk Communication Ability: Effective Escalator Service Mechanic Required: No Beliefs That Will Affect Care: None Current Living Situation: Family Other Information That Helps Us Care for You: No Feels Safe at Home: Yes Safety Concerns: Feels Safe At This Time Assistive Devices: Bedside Commode, Hospital Bed and Walker Review of Systems Review of Systems: All systems reviewed & are unremarkable except as noted in HPI & below Physical Exam Constitutional: + frail appearing, cooperative and comfortable Eyes: normal visual todd by confrontation Respiratory: normal respiratory effort Cardiovascular: Rate/Rhythm: regular rate and regular rhythm Musculoskeletal: Extremities: + foot abnormality (4th & 5th Ray amputation) Left Neurologic: moves all extremities (Absent epicritic sensation) Psychiatric: Orientation: alert and oriented x 3 Results & Data Vital Signs (Past 12 Hours) Vital Signs Temp Pulse Resp BP Pulse Ox O2 Del Method 12/26/22 08:00 Room Air 12/26/22 07:28 36.8 C 61 16 175/69 H 94 Room Air (1) Open wound of left foot Encounter type: initial encounter Qualified Code(s): S91.302A - Unspecified open wound, left foot, initial encounter
[2022-12-26] MEDS ORDERED: ATROPINE SULFATE 0.1 MG/ML 10ML SYR IV PRN (09:17)
[2022-12-26] MEDS ORDERED: MIDAZOLAM HCL 1 MG/ML 2ML VIAL ONE ×2 (09:20→09:41)
--- NOTE | 2022-12-26 09:22 | History & Physical Bridge Note ---
Date of Service December 26, 2022 History & Physical Bridge Note I have examined the patient, reviewed the History & Physical and in the interval since the performance of the History & Physical I have noted the following changes of clinical significance: no changes noted
[2022-12-26] MEDS ORDERED: ONDANSETRON INJ 2 MG/ML 2 ML VIAL ONE (09:47)
[2022-12-26] MEDS ORDERED: PROPOFOL IV EMULSION 10 MG/ML 20 ML VIAL IV ONE (09:47)
--- NOTE | 2022-12-26 09:54 | Nephrology Consultation ---
Date of Consultation December 26, 2022 Assessment & Plan (1) Open wound of left foot: * Taken to the operating room by Dr. 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 * HD MWF via AVF * Outpatient HD MWF [facility] (3 hours, F-180NR, Qb 400/Qd 500, 2K, 35 HCO3, 137 Na, EDW 58 kg) * Medications appropriate for kidney function * Renal diet * Continue Sevelamer QA (3) HTN (hypertension): * Continue lisinopril, clonidine, metoprolol, Imdur, and amlodipine as per home Rx * BP remains acceptable (4) Anemia: * Hgb 9.7 on 7.5 * Maintained on Micera as outpatient * Epogen to be provided with HD History of Present Illness Reason for Consultation: ESRD on HD Requesting Physician: Julian Betancourt MD Attending Physician: Julian Betancourt MD History of Present Illness Mrs. Jacqui Hudson is a 62 year old female withESRD attributed to DKD. She has b een on HD for several years. Jacqui dialyzes on a MWF schedule at [facility] under my care. Her last treatment was on 12/24. Jacqui has been tolerating HD well. PMH also notable for DMII, HLD, CAD, PAD, hypothyroidism, significant smoking history, osteoprosis treated with Prolia, and osteomyelitis left foot. Jacqui hasa history of diabetic foot ulcer since February of last year. She underwent left 5th toe amputation several months ago at [facility]. Unfortunately, she continued to struggle with infection at the amputation site. Jacqui was recently hospitalized at [facility] in November with o steomyelitis of her left foot. On November 15, she underwent left 5th ray amputation, application of wound vac dressing, subsequently on November 17 she underwent left foot delayed primary closure. She was discharged to [facility]. She returned to the hospital yesterday for evaluation of persistent infection. Jacqui was taken to the operating room this morning. Jacqui has a well functioning right brachiocephalic AV fistula. Rx is 3 hours of a 180 Optiflux with Qb 400 and Qd 500. 2K bath. EDW 58 kg. Allergies Allergy/AdvReac Type Severity Reaction Status Date / Time morphine Allergy Severe Hallucinati Unverified 12/25/22 15:17 ng codeine Allergy Intermediate Redness of Unverified 12/25/22 15:17 Skin prednisone Allergy Intermediate Itching Unverified 12/25/22 15:17 Home Medications Medication Instructions Recorded Confirmed Type albuterol sulfate 90 mcg/actuation 1 puff inhalation QID PRN bad cough 11/12/22 12/25/22 History aerosol inhaler allopurinol 100 mg tablet 100 mg PO DAILY 11/12/22 12/25/22 History amitriptyline 100 mg tablet 100 mg PO HS 11/12/22 12/25/22 History amlodipine 2.5 mg tablet 2.5 mg PO DAILY 11/12/22 12/25/22 History ascorbic acid (vitamin C) 500 mg 500 mg PO DAILY 11/12/22 12/25/22 History capsule aspirin 81 mg chewable tablet 81 mg PO DAILY 11/12/22 12/25/22 History atorvastatin 40 mg tablet (Lipitor) 40 mg PO HS 11/12/22 12/25/22 History cholecalciferol (vitamin D3) 50 50 mcg PO DAILY 11/12/22 12/25/22 History mcg (2,000 unit) tablet clonidine HCl 0.1 mg tablet 0.1 mg PO DAILY 11/12/22 12/25/22 History clopidogrel 75 mg tablet 75 mg PO DAILY 11/12/22 12/25/22 History denosumab 60 mg/mL subcutaneous 60 mg subcut Q6M 11/12/22 12/25/22 History syringe (Prolia) docusate sodium 100 mg capsule 100 mg PO DAILY PRN Constipation 11/12/22 12/25/22 History (Colace) esomeprazole magnesium 40 mg 40 mg PO DAILY 11/12/22 12/25/22 History capsule,delayed release (Nexium) ezetimibe 10 mg tablet 10 mg PO DAILY 11/12/22 12/25/22 History furosemide 40 mg tablet (Lasix) 40 mg PO DAILY 11/12/22 12/25/22 History isosorbide mononitrate 30 mg 30 mg PO HS 11/12/22 12/25/22 History tablet,extended release 24 hr latanoprost 0.005 % eye drops 1 drp ophthalmic (eye) HS 11/12/22 12/25/22 History levothyroxine 125 mcg tablet 125 mcg PO QAM 11/12/22 12/25/22 History lisinopril 40 mg tablet (Zestril) 40 mg PO DAILY 11/12/22 12/25/22 History loratadine 10 mg tablet 10 mg PO DAILY 11/12/22 12/25/22 History melatonin 10 mg capsule 10 mg PO HS 11/12/22 12/25/22 History metoprolol tartrate 50 mg tablet See Rx Instructions .Route .COMPLEX 11/12/22 12/25/22 History nitroglycerin 0.4 mg sublingual See Rx Instructions .Route .COMPLEX 11/12/22 12/25/22 History tablet sevelamer carbonate 800 mg tablet 800 mg PO TID 11/12/22 12/25/22 History vit B,C-folic ac 800 mcg-zinc 12.5 1 tab PO DAILY 11/12/22 12/25/22 History mg-selen-D3 2,000 unit-vit E tablet (RenaPlex-D) zolpidem 5 mg tablet (Ambien) 5 mg PO HS 11/12/22 12/25/22 History oxycodone 5 mg tablet 5 mg PO Q4H #20 tabs 11/22/22 12/25/22 Rx insulin aspart U-100 100 unit/mL 2 sliding scale dose subcut 12/25/22 12/25/22 History (3 mL) subcutaneous pen (Novolog .TIDWMEALS FlexPen U-100 Insulin aspart) Patient History Medical History Anemia CAD (coronary artery disease) CHF (congestive heart failure) DM II (diabetes mellitus, type II), controlled ESRD (end stage renal disease) on dialysis HD -. Follows with Dr. Mckeon HTN (hypertension) Hypothyroidism Osteomyelitis of left foot Tobacco abuse Weakness Surgical History S/P drug eluting coronary stent placement Social History Smoking Status: Current every day smoker Cigarettes Per Day: 6; Second Hand Exposure: No; Do You Dip or Chew Tobacco: No; Tobacco Cessation Education Requested by Patient: Yes Hx Alcohol Use: No Hx Substance Use: No Preferred Language: Sami Communication Ability: Effective Experimental Display Builder Required: No Beliefs That Will Affect Care: None Current Living Situation: Family Other Information That Helps Us Care for You: No Feels Safe at Home: Yes Safety Concerns: Feels Safe At This Time Assistive Devices: Bedside Commode, Hospital Bed and Walker Review of Systems Review of Systems: All systems reviewed & are unremarkable except as noted in HPI & below Physical Exam Constitutional: WD/WN, vitals as above no acute distress Eyes: + anicteric sclerae Neck: normal visual inspection Respiratory: no respiratory distress Auscultation: lungs clear to auscultation bilaterally Cardiovascular: Rate/Rhythm: regular rate and regular rhythm Heart Sounds: normal S1 and normal S2 Extremities: + AV fistula (RT BC AVF with thrill and bruit.); no edema Skin: no rashes, warm and dry Neurologic: no focal motor deficits Psychiatric: Orientation: alert and cooperative Results & Data Vital Signs (Past 12 Hours) Vital Signs Temp Pulse Resp BP Pulse Ox O2 Del Method 12/26/22 08:00 Room Air 12/26/22 07:28 36.8 C 61 16 175/69 H 94 Room Air Laboratory Results Laboratory Results - last 24 hr 12/25/22 12/25/22 12/25/22 13:23 13:23 16:06 WBC 8.97 RBC 3.51 L Hgb 11.7 L Hct 33.5 L MCV 95.4 MCH 33.3 MCHC 34.9 RDW Std Deviation 48.6 H RDW Coeff of Evette 13.8 Plt Count 236 MPV 10.7 Immature Gran % (Auto) 0.3 Neut % (Auto) 73.5 Lymph % (Auto) 18.2 Caswell % (Auto) 5.8 Eos % (Auto) 1.9 Baso % (Auto) 0.3 Neut # (Auto) 6.59 H Lymph # (Auto) 1.63 Caswell # (Auto) 0.52 Eos # (Auto) 0.17 Baso # (Auto) 0.03 Immature Gran # (Auto) 0.03 ESR 32 H Sodium 134 L Potassium 4.2 Chloride 94 L Carbon Dioxide 34 H Anion Gap 6 BUN 20 Creatinine 3.70 H Est Cr Clr Drug Dosing Not Reportable Est GFR ( Amer) 14.5 Est GFR (Non-Af Amer) 12.5 BUN/Creatinine Ratio 5.4 L Glucose 244 H POC Glucose Calcium 9.4 Total Bilirubin 0.4 AST 34 ALT 37 Alkaline Phosphatase 132 H C-Reactive Protein < 0.50 Total Protein 7.3 Albumin 3.7 Globulin 3.6 Albumin/Globulin Ratio 1.0 Procalcitonin SARS-CoV-2, RNA, NAAT 12/25/22 12/25/22 12/25/22 16:06 16:40 20:30 WBC RBC Hgb Hct MCV MCH MCHC RDW Std Deviation RDW Coeff of Evette Plt Count MPV Immature Gran % (Auto) Neut % (Auto) Lymph % (Auto) Caswell % (Auto) Eos % (Auto) Baso % (Auto) Neut # (Auto) Lymph # (Auto) Caswell # (Auto) Eos # (Auto) Baso # (Auto) Immature Gran # (Auto) ESR Sodium Potassium Chloride Carbon Dioxide Anion Gap BUN Creatinine Est Cr Clr Drug Dosing Est GFR ( Amer) Est GFR (Non-Af Amer) BUN/Creatinine Ratio Glucose POC Glucose 135 H Calcium Total Bilirubin AST ALT Alkaline Phosphatase C-Reactive Protein Total Protein Albumin Globulin Albumin/Globulin Ratio Procalcitonin 0.05 SARS-CoV-2, RNA, NAAT NEGATIVE 12/26/22 12/26/22 12/26/22 06:33 07:45 07:45 WBC 7.14 RBC 3.15 L Hgb 10.1 L Hct 29.7 L MCV 94.3 MCH 32.1 MCHC 34.0 RDW Std Deviation 46.5 H RDW Coeff of Evette 13.5 Plt Count 193 MPV 10.7 Immature Gran % (Auto) 0.1 Neut % (Auto) 64.0 Lymph % (Auto) 25.4 Caswell % (Auto) 7.3 Eos % (Auto) 2.8 Baso % (Auto) 0.4 Neut # (Auto) 4.57 Lymph # (Auto) 1.81 Caswell # (Auto) 0.52 Eos # (Auto) 0.20 Baso # (Auto) 0.03 Immature Gran # (Auto) 0.01 ESR Sodium 136 Potassium 4.2 Chloride 97 L Carbon Dioxide 33 H Anion Gap 6 BUN 25 H Creatinine 4.29 H D Est Cr Clr Drug Dosing 10.9 Est GFR ( Amer) 12.1 Est GFR (Non-Af Amer) 10.4 BUN/Creatinine Ratio 5.8 L Glucose 94 POC Glucose 121 H Calcium 9.2 Total Bilirubin AST ALT Alkaline Phosphatase C-Reactive Protein Total Protein Albumin Globulin Albumin/Globulin Ratio Procalcitonin SARS-CoV-2, RNA, NAAT 12/26/22 07:52 WBC RBC Hgb Hct MCV MCH MCHC RDW Std Deviation RDW Coeff of Evette Plt Count MPV Immature Gran % (Auto) Neut % (Auto) Lymph % (Auto) Caswell % (Auto) Eos % (Auto) Baso % (Auto) Neut # (Auto) Lymph # (Auto) Caswell # (Auto) Eos # (Auto) Baso # (Auto) Immature Gran # (Auto) ESR Sodium Potassium Chloride Carbon Dioxide Anion Gap BUN Creatinine Est Cr Clr Drug Dosing Est GFR ( Amer) Est GFR (Non-Af Amer) BUN/Creatinine Ratio Glucose POC Glucose 95 Calcium Total Bilirubin AST ALT Alkaline Phosphatase C-Reactive Protein Total Protein Albumin Globulin Albumin/Globulin Ratio Procalcitonin SARS-CoV-2, RNA, NAAT PG Care Time/CCT Total # of Minutes Spent Total Time Spent with Patient: Total time spent is greater than 50% in coordination of care (as documented) at patient's floor/unit and/or counseling patient: Coding Level of Care Code 44361 IN/OBS CONSULT LVL 4,60M Diagnoses Open wound of left foot S91.302A Encounter type: initial encounter ESRD (end stage renal disease) on dialysis N18.6; Z99.2 HTN (hypertension) I10 Anemia D64.9 (1) Open wound of left foot Encounter type: initial encounter Qualified Code(s): S91.302A - Unspecified open wound, left foot, initial encounter
--- NOTE | 2022-12-26 10:00 | Post Operative Brief Note ---
Immediate Post Op Note v1 Date of Surgery December 26, 2022 Pre & Post Diagnosis Operation Date: 12/26/22 09:00 <No data on this case meets the specified criteria> I identified the patient and participated in the time-out.: Yes Procedure Operation Date: 12/26/22 09:00 <No data on this case meets the specified criteria> Surgeon Yong Dias, JEFFRY, MS [employer] none Estimated Blood Loss 0 Findings Consistent with Post-Op Diagnosis findings consistent with pre-operative diagnosis
--- NOTE | 2022-12-26 10:42 | Anesthesiology Progress Note ---
Date of Service December 26, 2022 Anesthesia Post Procedure Vital Signs Vital Signs: Temp Pulse Pulse Pulse Resp BP BP 12/26/22 10:35 36.6 C 53 L 13 128/47 L 12/26/22 10:25 53 L 14 123/43 L 12/26/22 10:15 53 L 12 117/39 L 12/26/22 10:05 36.5 C 53 L 12 120/39 L 12/26/22 08:00 12/26/22 07:28 36.8 C 61 16 175/69 H 12/25/22 19:15 36.5 C 60 14 184/66 H 12/25/22 20:19 36.5 C 60 14 184/66 H 12/25/22 17:01 78 18 175/76 H 12/25/22 14:48 82 18 170/95 H 12/25/22 12:11 36.2 C L 56 L 18 105/49 L Pulse Ox O2 Del Method 12/26/22 10:35 95 Room Air 12/26/22 10:25 93 Room Air 12/26/22 10:15 94 Room Air 12/26/22 10:05 97 Room Air 12/26/22 08:00 Room Air 12/26/22 07:28 94 Room Air 12/25/22 19:15 99 Room Air 12/25/22 20:19 99 Room Air 12/25/22 17:01 98 Room Air 12/25/22 14:48 99 Room Air 12/25/22 12:11 99 Room Air Pain Intensity Left Foot: Pain Intensity: 2 Transfer of Care Handoff Completed per policy Notes Mental Status: alert / awake / arousable Patient Amnestic to Procedure: Yes Nausea / Vomiting: adequately controlled Pain: adequately controlled Airway Patency, RR, SpO2: stable & adequate BP & HR: stable & adequate Hydration State: stable & adequate Anesthetic Complications: no major complications apparent
[2022-12-26] MEDS ORDERED: VANCOMYCIN CONSULT ACTIVE PRN (10:57)
[2022-12-26] MEDS ORDERED: CEFEPIME 2,000 MG in SYRINGE 0 ML IV SCH (11:00)
[2022-12-26] MEDS ORDERED: VANCOMYCIN HCL 1,000 MG in SODIUM CHLORIDE 0.9% 250 ML IV ONE (12:00)
--- NOTE | 2022-12-26 12:05 | Pharmacy Report ---
Pharmacy PK ABX Note - Date of Service December 26, 2022 - Assessment and Plan Assessment 62 year old F receiving vancomycin and cefepime for treatment of bone and joint infection. POD #0 debridement. Pre-op foot culture (+) GNB. Blood cultures and intra-op cultures pending. Patient is ESRD on iHD MWF. No clear plan for dialysis today at this point. Day #1 of antimicrobial therapy. Plan Vancomycin * Loading dose: 1000 mg IV x 1 * Random level tomorrow AM to guide further dosing. Dosing by levels in setting of dialysis. Pharmacy will continue to follow and will adjust dose/frequency as necessary. Thank you.
[2022-12-26] MEDS: CEFEPIME 1,000 MG in SYRINGE 0 ML IV SCH (12:26)
[2022-12-26] MEDS: oxyCODONE HCL IR 5 MG TAB (IMMEDIATE RELEASE) PO PRN ×2 (13:10→20:42)
--- NOTE | 2022-12-26 15:48 | Operative Report ---
Post Operative Report Pre & Post Diagnosis Operation Date: 12/26/22 09:00 Pre-Op Diagnosis: Open wound of left foot Post-Op Diagnosis: Open wound of left foot I identified the patient and participated in the time-out.: Yes Procedure Operation Date: 12/26/22 09:00 Actual Procedures p Nonhealing wound irrigation and debridement with application of negative pre ssure wound therapy- left foot(Left) - Yong Dias DPM, MS Surgeon Yong Dias DPM, MS Tv Technician none Estimated Blood Loss 0 Findings Consistent with Post-Op Diagnosis consistent with pre operative diagnosis Specimens Deep cultures swab - Micro Description of Procedure Patient is a 62-year-old female with prior history of left diabetic foot ulcers resulting in amputation of 4th and 5th ray. Patient seen today for debridement of necrotic wound bed, and application of wound vac negative pressure therapy. Procedure in detail was discussed as well as postoperative care. All questions were answered. All potential risks, benefits, complications, alternatives, rehab, potential for incomplete relief of symptoms, need for further surgery, D VT, PE, , persistent pain, swelling, scarring, weakness, neurovascular, wound complications and potential for amputations were discussed with patient. Unwanted outcomes such as, but not limited to were reviewed including under correction, overcorrection, return of deformity, infection. All questions were answered. Patient has decided to proceed with procedure as indicated. Preoperative diagnosis: Left foot wound, necrotic soft tissue down to muscle and tendon Postoperative diagnosis: Same Procedure in detail: 1.) Excision of necrotic soft tissue down to muscle and tendon left with wash out 2.) Application of wound vac left foot Surgeon: Dr. Dias Tv Technician: none Anesthesia: Local monitored anesthesia care Hemostasis: none Estimated blood loss: 0 ml Specimens: None Procedure in detail: Under mild sedation the patient was brought in the operating room and placed on the operating table in supine position. Following sedation the foot and ankle were prepped scrubbed and draped in the usual aseptic manner. Attention was then directed to left foot diabetic non healing wound with exposed necrotic muscle and tendon. The wound measures roughly 5 cm x 4 cm x 1.6 cm. Utilizing a sharp, sterile, #15 blade of extensive debridement of necrotic devitalized soft tissue was achieved. The wound bed was voided of all non-viable tissue. All bleeders were ligated and cauterized as necessary. Copious amounts of Lactate ringer was utilized to flush the wound under low flow. Deep tissue swab taken at this time. Next negative pressure wound therapy was applied. The KCI wound vac was placed on 125mmHg continuous setting. The Patient tolerated procedure and anesthesia well he was transferred to recovery room vital signs stable and vascular status intact all remaining toes of the left foot following. Following a period of postoperative monitoring the patient will be discharged back to floor on the following written and postoperative oral instructions. Keep dressing clean dry and intact, avoid ambulation. Dr. Dias for all postoperative care if any problems arise. I attest to the content of the Intraoperative Record and any orders documented therein. Any exceptions are noted below.
[2022-12-26] MEDS: HEPARIN SOD 5,000 UNIT/0.5 ML VIAL SQ SCH (19:32)
[2022-12-26] MEDS: AMITRIPTYLINE HCL 100 MG TAB PO SCH (19:33)
[2022-12-26] MEDS: ZOLPIDEM TARTRATE 5 MG TAB PO SCH (19:33)
[2022-12-26] MEDS: ATORVASTATIN 40 MG TAB PO SCH (19:34)
[2022-12-26] MEDS: ISOSORBIDE MONO EXTENDED REL 30 MG TABCR PO SCH (19:34)
[2022-12-26] MEDS: LATANOPROST 0.005% OP SOLN 2.5 ML BTL OP SCH (19:35)
[2022-12-27] MEDS: LEVOTHYROXINE SODIUM 125 MCG TABLET PO SCH (05:36)
[2022-12-27] MEDS: oxyCODONE HCL IR 5 MG TAB (IMMEDIATE RELEASE) PO PRN ×2 (08:10→16:22)
[2022-12-27] MEDS: amLODIPine BESYLATE 5 MG TAB PO SCH (08:11)
[2022-12-27] MEDS: SEVELAMER HCL 800 MG TABLET PO SCH ×3 (08:12→17:24)
[2022-12-27] MEDS: CEROVITE ADV FORMULA TAB PO SCH (08:12)
[2022-12-27] MEDS: PANTOprazole 40 MG TAB PO SCH (08:12)
[2022-12-27] MEDS: CLOPIDOGREL BISULFATE 75 MG TAB PO SCH (08:12)
[2022-12-27] MEDS: lisinopril 40 MG TAB PO SCH (08:13)
[2022-12-27] MEDS: cloNIDine HCL 0.1 MG TAB PO SCH (08:13)
[2022-12-27] MEDS: FUROSEMIDE 40 MG TAB PO SCH (08:13)
[2022-12-27] MEDS: ASPIRIN 81 MG CHEW PO SCH (08:13)
[2022-12-27] MEDS: allopurinoL 100 MG TAB PO SCH (08:14)
[2022-12-27] MEDS: LORATADINE 10 MG TAB PO SCH (08:14)
[2022-12-27] MEDS: METOPROLOL TARTRATE 50 MG TAB PO SCH ×2 (08:18→19:47)
[2022-12-27 08:32] LABS: Hematocrit (blood only) 29.1 % (37.0-47.0); Mean Corpuscular Hemoglobin 31.8 pg (25.0-34.0); Mean Corpuscular Hgb Conc 34.4 g/dL (32.0-36.0); Mean Corpuscular Volume 92.7 fL (80.0-100.0); Platelet Count 169 K/uL (130-400); RDW Coefficient of Variation 13.3 % (11.5-14.5); RDW Standard Deviation 45.4 fL (36.4-46.3); Red Blood Count 3.14 M/uL (4.20-5.40); White Blood Count 6.53 K/ul (4.8-10.8)
[2022-12-27] MEDS: INSULIN ASPART PER UNIT CHARGE SC SCH ×4 (08:34→20:43)
[2022-12-27] MEDS ORDERED: EPOETIN ALFA 10,000 UNITS/ML VIAL IV ONE (08:35)
[2022-12-27 08:46] LABS: BUN Creatinine Ratio 6.3 (10-20); Calcium 9.2 mg/dl (8.6-10.3); Creatinine Clr Calc Pharmacy 8.2 ml/min; Est GFR (African American) 8.6 ml/min; Est GFR (Non-African American) 7.4 ml/min; Magnesium 1.9 mg/dl (1.7-2.4); Potassium 4.8 mmol/L (3.5-5.1)
[2022-12-27] MEDS: HEPARIN SOD 5,000 UNIT/0.5 ML VIAL SQ SCH ×2 (09:02→19:46)
[2022-12-27] MEDS: ACETAMINOPHEN 325 MG TAB PO PRN ×2 (09:02→17:23)
--- NOTE | 2022-12-27 10:42 | Pharmacy Report ---
Pharmacy PK ABX Note - Date of Service December 27, 2022 - Assessment and Plan Assessment 62 year old F receiving vancomycin and cefepime for treatment of bone and joint infection. POD #0 debridement. Pre-op foot culture (+) E coli pansensitive + S species. Blood cultures are NGTD and intra-op cultures show GNB + Staph species. Patient is ESRD on iHD MWF. Dialysis planned for today. Day #1 of antimicrobial therapy. Plan Vancomycin * Random level from this AM was 11.3 mg/mL. * Redose vancomycin 1000 mg IV x 1 (17 mg/mL) after dialysis * Random level tomorrow AM to guide further dosing. Dosing by levels in setting of dialysis. Pharmacy will continue to follow and will adjust dose/frequency as necessary. Thank you.
--- NOTE | 2022-12-27 10:44 | Nephrology Progress Note ---
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 * HD MWF via AVF * Orders for HD today entered into the EHR and reviewed with process validation engineer * Outpatient HD MWF [facility] (3 hours, F-180NR, Qb 400/Qd 500, 2K, 35 HCO3, 137 Na, EDW 58 kg) * Medications appropriate for kidney function * Renal diet * Continue Sevelamer QAC (2) HTN (hypertension): Plan: * Continue lisinopril, clonidine, metoprolol, Imdur, and amlodipine as per home Rx * Anticipate improvement with dialysis (3) Anemia: Plan: * Epogen 80597 units with HD today (4) Open wound of left foot: Plan: * POD #1 s/p I&D and application of wound vac * Remains on cefepime dosed for kidney function * Vanco dosing per pharmacy * Culture +GNR and staph Admission and Anticipated Discharge Date Admission Date: December 25, 2022 Subjective No acute events overnight. Jacqui is resting comfortably in bed this morning. Pain reasonably controlled. No fevers or chills. Expressed frustration regarding hospitalizations. Review of Systems Review of Systems: All systems reviewed & are unremarkable except as noted in HPI & below Physical Exam Constitutional: WD/WN, vitals as above no acute distress Eyes: + anicteric sclerae Neck: normal visual inspection Respiratory: no respiratory distress Auscultation: lungs clear to auscultation bilaterally Cardiovascular: Rate/Rhythm: regular rate and regular rhythm Heart Sounds: normal S1 and normal S2 Extremities: + AV fistula (RT BC AVF with thrill and bruit.); no edema Musculoskeletal: L foot with MILLIE dressing and wound vac Skin: no rashes, warm and dry Neurologic: no focal motor deficits Psychiatric: Orientation: alert and cooperative Results & Data Vital Signs (Past 12 Hours) Vital Signs Temp Pulse Pulse Resp BP Pulse Ox O2 Del Method 12/27/22 08:26 Room Air 12/27/22 07:43 36.6 C 57 L 18 177/63 H 97 Room Air 12/27/22 04:30 36.8 C 61 14 190/63 H 96 Room Air 12/26/22 23:15 37.1 C 65 16 163/67 H 95 Room Air Laboratory Results Laboratory Results - last 24 hr 12/26/22 12/26/22 12/26/22 12:10 16:50 20:37 WBC RBC Hgb Hct MCV MCH MCHC RDW Std Deviation RDW Coeff of Evette Plt Count MPV Sodium Potassium Chloride Carbon Dioxide Anion Gap BUN Creatinine Est Cr Clr Drug Dosing Est GFR ( Amer) Est GFR (Non-Af Amer) BUN/Creatinine Ratio Glucose POC Glucose 137 H 121 H 121 H Calcium Magnesium Random Vancomycin 12/27/22 12/27/22 12/27/22 07:50 07:50 07:50 WBC 6.53 RBC 3.14 L Hgb 10.0 L Hct 29.1 L MCV 92.7 MCH 31.8 MCHC 34.4 RDW Std Deviation 45.4 RDW Coeff of Evette 13.3 Plt Count 169 MPV 11.0 Sodium 135 L Potassium 4.8 Chloride 98 Carbon Dioxide 30 Anion Gap 7 BUN 36 H Creatinine 5.69 H* D Est Cr Clr Drug Dosing 8.2 Est GFR ( Amer) 8.6 Est GFR (Non-Af Amer) 7.4 BUN/Creatinine Ratio 6.3 L Glucose 88 POC Glucose Calcium 9.2 Magnesium 1.9 Random Vancomycin 11.3 12/27/22 08:00 WBC RBC Hgb Hct MCV MCH MCHC RDW Std Deviation RDW Coeff of Evette Plt Count MPV Sodium Potassium Chloride Carbon Dioxide Anion Gap BUN Creatinine Est Cr Clr Drug Dosing Est GFR ( Amer) Est GFR (Non-Af Amer) BUN/Creatinine Ratio Glucose POC Glucose 85 Calcium Magnesium Random Vancomycin PG Care Time/CCT Total # of Minutes Spent Total Time Spent with Patient: Total time spent is greater than 50% in coordination of care (as documented) at patient's floor/unit and/or counseling patient: Coding Level of Care Code 03978 SUB INP/OBS CARE 3/50MIN Diagnoses ESRD (end stage renal disease) on dialysis N18.6; Z99.2 HTN (hypertension) I10 Anemia D64.9 Open wound of left foot S91.302A Encounter type: initial encounter (4) Open wound of left foot Encounter type: initial encounter Qualified Code(s): S91.302A - Unspecified open wound, left foot, initial encounter
--- NOTE | 2022-12-27 11:20 | Hospitalist Progress Note ---
Date of Service December 27, 2022 Assessment & Plan (1) Open wound of left foot: Plan: Debrided by podiatry on December 26. Swab culture growing gram-negative rods and staph. Further identification and sensitivities pending. Continue vancomycin and cefepime for now. Continue wound care. (2) PAD (peripheral artery disease): Plan: Continue DAPT and atorvastatin. Left leg - greatest stenosis is at the proximal SFA with estimated stenosis of 50-74% based on peak systolic velocity criteria. Outpatient follow-up and management (3) ESRD (end stage renal disease) on dialysis: Plan: Nephrology consultation appreciated. Hemodialysis today, December 27. Serial labs. (4) HTN (hypertension): Plan: Stable. Continue current medical management Plan Anticipate eventual discharge to home Admission and Anticipated Discharge Date Admission Date: December 25, 2022 Subjective Alert and oriented. No acute distress. She will undergo hemodialysis today. Creatinine has risen to 5.69. Her left foot was debrided yesterday, December 26. She remains on vancomycin and cefepime. Swab culture from the left foot growing gram-negative rods and staph. Further identification and sensitivities pending Review of Systems Review of Systems: Constitutional-no fever or chills ENT-no blurred vision, no double vision, no epistaxis, no sore throat Respiratory-no cough, no wheezing, no shortness of breath Cardiac-no palpitations, no chest pain, no syncope GI-no nausea, vomiting, diarrhea, melena, hematochezia -no urinary retention, no urinary incontinence, no dysuria, no hematuria Musculoskeletal-left foot heavily bandaged Skin-no bruising, no rashes, no pruritus Neuro-no isolated weakness, no paresthesia Psych-no depression, no anxiety Physical Exam Physical Exam: General-alert and oriented x3, no fevers, no chills HEENT-head atraumatic and normocephalic, pupils equal and reactive to light, extraocular muscles intact Neck-no lymphadenopathy or thyromegaly, trachea midline Chest-clear to auscultation percussion. No rales wheezing or rhonchi Cardiac-regular rate and rhythm, normal S1 and S2 Abdomen-normal bowel sounds, nontender, no hepatosplenomegaly Extremities-left foot heavily bandaged Neuro-cranial nerves II through XII intact, motor and sensory function within normal limits, strength symmetrical , no focal deficits Psych-normal affect, normal mood Results & Data Results & Data Vital Signs (Past 12 Hours) Vital Signs Temp Pulse Pulse Resp BP Pulse Ox O2 Del Method 12/27/22 08:26 Room Air 12/27/22 07:43 36.6 C 57 L 18 177/63 H 97 Room Air 12/27/22 04:30 36.8 C 61 14 190/63 H 96 Room Air Laboratory Results 12/27/22 07:50 12/27/22 07:50 PG Care Time/CCT Total # of Minutes Spent Total Time Spent with Patient: Total time spent is greater than 50% in coordination of care (as documented) at patient's floor/unit and/or counseling patient: Coding Level of Care Code 72416 SUB INP/OBS CARE 3/50MIN Diagnoses Open wound of left foot S91.302A Encounter type: initial encounter PAD (peripheral artery disease) I73.9 ESRD (end stage renal disease) on dialysis N18.6; Z99.2 HTN (hypertension) I10 (1) Open wound of left foot Encounter type: initial encounter Qualified Code(s): S91.302A - Unspecified open wound, left foot, initial encounter
[2022-12-27] MEDS: CEFEPIME 1,000 MG in SYRINGE 0 ML IV SCH (11:55)
--- NOTE | 2022-12-27 19:04 | Orthopedic Progress Note ---
Date of Service December 27, 2022 Assessment & Plan (1) Open wound of left foot: Plan: Patient seen, evaluated and treated. Reviewed Wound cultures growing gram-negative rods and staph. Awaiting sensitivities, Patient on vancomycin and cefepime. Wound Care consulted for Vac change. Will continue to follow while in house. Admission and Anticipated Discharge Date Admission Date: December 25, 2022 Subjective Patient seen during dialysis today resting comfortably. Patient is status post wound debridement with application of wound vac day #1 (DOS 12/26/22) She notes left foot pain. Review of Systems Review of Systems: All systems reviewed & are unremarkable except as noted in Subjective Physical Exam Constitutional: cooperative and comfortable Respiratory: normal respiratory effort Skin: + wound (Left foot) Neurologic: moves all extremities (Absent epicritic sensation ) Psychiatric: Orientation: alert and oriented x 3 Results & Data Vital Signs (Past 12 Hours) Vital Signs Temp Pulse Pulse Pulse Pulse Resp BP 12/27/22 16:00 36.5 C 58 L 12/27/22 16:18 36.7 C 59 L 18 12/27/22 15:30 56 L 149/56 H 12/27/22 15:00 54 L 125/50 L 12/27/22 14:30 53 L 116/53 L 12/27/22 14:00 77 115/50 L 12/27/22 13:30 52 L 121/50 L 12/27/22 13:00 52 L 133/56 L 12/27/22 12:50 36.5 C 55 L 12/27/22 08:26 12/27/22 07:43 36.6 C 57 L 18 BP Pulse Ox O2 Del Method 12/27/22 16:00 151/68 H 12/27/22 16:18 159/64 H 92 Room Air 12/27/22 15:30 12/27/22 15:00 12/27/22 14:30 12/27/22 14:00 12/27/22 13:30 12/27/22 13:00 12/27/22 12:50 12/27/22 08:26 Room Air 12/27/22 07:43 177/63 H 97 Room Air Diagnostic Findings [facility] [address], [place] [address] / Director: Hermilo Cabral M.D. Clinical Laboratory Report Name: SUMMERSKENYETTA Acct: [id number] [place]: [place] 1960 [facility] [place]25/22 Age: 62 Sex: F Dis Date: Loc: Medical/Surgical/Ortho [address] [place] [id number] Collected: 12/26/22 Received: 12/26/[address]: Yong Dias DPM, MS Copy To: Albaro Franks MD Source: Foot,Left OV Order: Ordered: Aer/Magali Cult/Sm Comments: Comment #1. Left foot deep culture Procedure Result Verified Site Gram Stain Final 12/26/22 Gram Stain Result Moderate Gram Positive Cocci Rare Gram Positive Bacilli Few WBCs Seen Aero/Magali Cult Preliminary 12/27/22 Organism 1 Gram negative bacilli Quantity Moderate Sens Sensitivities to Follow +MixWound Plus Moderate Counts of Probable Skin Gretchen Organism 2 Staphylococcus species Quantity Moderate Sens Sensitivities to Follow Name: KENYETTA SUMMERS : 1960 PAGE 1 Printed: 12/27/221903 END OF REPORT (1) Open wound of left foot Encounter type: initial encounter Qualified Code(s): S91.302A - Unspecified open wound, left foot, initial encounter
[2022-12-27] MEDS: AMITRIPTYLINE HCL 100 MG TAB PO SCH (19:45)
[2022-12-27] MEDS: ATORVASTATIN 40 MG TAB PO SCH (19:46)
[2022-12-27] MEDS: ZOLPIDEM TARTRATE 5 MG TAB PO SCH (19:46)
[2022-12-27] MEDS: ISOSORBIDE MONO EXTENDED REL 30 MG TABCR PO SCH (19:47)
[2022-12-27] MEDS: LATANOPROST 0.005% OP SOLN 2.5 ML BTL OP SCH (19:48)
[2022-12-28] MEDS: oxyCODONE HCL IR 5 MG TAB (IMMEDIATE RELEASE) PO PRN ×3 (00:50→20:59)
[2022-12-28] MEDS: LEVOTHYROXINE SODIUM 125 MCG TABLET PO SCH (05:34)
[2022-12-28 06:46] LABS: Hematocrit (blood only) 27.2 % (37.0-47.0); Hemoglobin 8.9 g/dl (12.0-16.0); Mean Corpuscular Hemoglobin 31.9 pg (25.0-34.0); Mean Corpuscular Hgb Conc 32.7 g/dL (32.0-36.0); Mean Corpuscular Volume 97.5 fL (80.0-100.0); Mean Platelet Volume 10.9 fL (9.4-12.4); Platelet Count 160 K/uL (130-400); RDW Coefficient of Variation 13.3 % (11.5-14.5); RDW Standard Deviation 48.1 fL (36.4-46.3); Red Blood Count 2.79 M/uL (4.20-5.40); White Blood Count 5.71 K/ul (4.8-10.8)
[2022-12-28 07:13] LABS: Basophils # (auto) 0.02 K/uL (0-0.2); Basophils % (auto) 0.4 %; Eosinophils # (auto) 0.16 K/uL (0-0.50); Eosinophils % (auto) 2.8 %; Immature Granulocytes # (auto) 0.01 K/uL (0.01-0.20); Immature Granulocytes % (auto) 0.2 %; Lymphocytes # (auto) 1.56 K/uL (1.2-3.4); Lymphocytes % (auto) 27.3 %; Neutrophils # (auto) 3.56 K/uL (1.40-6.50); Neutrophils % (auto) 62.3 %
[2022-12-28 07:22] LABS: Calcium 8.8 mg/dl (8.6-10.3); Potassium 4.7 mmol/L (3.5-5.1)
[2022-12-28 07:28] LABS: BUN Creatinine Ratio 4.7 (10-20); Creatinine Clr Calc Pharmacy 11.6 ml/min; Est GFR (Non-African American) 11.2 ml/min
[2022-12-28] MEDS ORDERED: VANCOMYCIN HCL 1,250 MG in SODIUM CHLORIDE 0.9% 250 ML IV ONE (08:00)
[2022-12-28] MEDS: INSULIN ASPART PER UNIT CHARGE SC SCH ×4 (08:14→21:05)
[2022-12-28] MEDS: ASPIRIN 81 MG CHEW PO SCH (08:36)
[2022-12-28] MEDS: LORATADINE 10 MG TAB PO SCH (08:36)
[2022-12-28] MEDS: CLOPIDOGREL BISULFATE 75 MG TAB PO SCH (08:36)
[2022-12-28] MEDS: allopurinoL 100 MG TAB PO SCH (08:36)
[2022-12-28] MEDS: CEROVITE ADV FORMULA TAB PO SCH (08:36)
[2022-12-28] MEDS: METOPROLOL TARTRATE 50 MG TAB PO SCH ×2 (08:36→19:35)
[2022-12-28] MEDS: amLODIPine BESYLATE 5 MG TAB PO SCH (08:37)
[2022-12-28] MEDS: FUROSEMIDE 40 MG TAB PO SCH (08:37)
[2022-12-28] MEDS: cloNIDine HCL 0.1 MG TAB PO SCH (08:37)
[2022-12-28] MEDS: PANTOprazole 40 MG TAB PO SCH (08:37)
[2022-12-28] MEDS: lisinopril 40 MG TAB PO SCH (08:38)
[2022-12-28] MEDS: SEVELAMER HCL 800 MG TABLET PO SCH ×3 (08:38→18:09)
[2022-12-28] MEDS: HEPARIN SOD 5,000 UNIT/0.5 ML VIAL SQ SCH ×2 (08:38→19:37)
--- NOTE | 2022-12-28 10:42 | Nephrology Progress Note ---
Date of Service December 28, 2022 Assessment & Plan (1) ESRD (end stage renal disease) on dialysis: Plan: * ESKD due to diabetic nephropathy * HD MWF via AVF * Outpatient HD MWF [facility] (3 hours, F-180NR, Qb 400/Qd 500, 2K, 35 HCO3, 137 Na, EDW 58 kg) * Medications appropriate for kidney function * Renal diet. Daily fluid restriction 1.5 L. * Continue Sevelamer QAC (2) HTN (hypertension): Plan: * Continue lisinopril, clonidine, metoprolol, Imdur, and amlodipine as per home Rx * Anticipate improvement with dialysis (3) Anemia: Plan: * Epogen with HD (4) Open wound of left foot: Plan: * POD #2 s/p I&D and application of wound vac * Remains on cefepime dosed for kidney function * Vanco dosing per pharmacy * Culture +GNR and staph Admission and Anticipated Discharge Date Admission Date: December 25, 2022 Subjective No acute events overnight. No complaints this AM. Pain reasonably controlled. No fevers or chills. Jacqui hopes to be discharged home in the next day or two. Tolerated HD yesterday without complications. Review of Systems Review of Systems: All systems reviewed & are unremarkable except as noted in HPI & below Physical Exam Constitutional: WD/WN, vitals as above no acute distress Eyes: + anicteric sclerae Neck: normal visual inspection Respiratory: no respiratory distress Auscultation: lungs clear to auscultation bilaterally Cardiovascular: Rate/Rhythm: regular rate and regular rhythm Heart Sounds: normal S1 and normal S2 Extremities: + AV fistula (RT BC AVF with thrill and bruit.); no edema Skin: no rashes, warm and dry Neurologic: no focal motor deficits Psychiatric: Orientation: alert and cooperative Results & Data Vital Signs (Past 12 Hours) Vital Signs Temp Pulse Resp BP Pulse Ox O2 Del Method 12/28/22 07:04 37.2 C 66 16 171/62 H 96 Room Air Laboratory Results Laboratory Results - last 24 hr 12/27/22 12/27/22 12/27/22 11:56 17:00 20:37 WBC RBC Hgb Hct MCV MCH MCHC RDW Std Deviation RDW Coeff of Evette Plt Count MPV Immature Gran % (Auto) Neut % (Auto) Lymph % (Auto) Day % (Auto) Eos % (Auto) Baso % (Auto) Neut # (Auto) Lymph # (Auto) Day # (Auto) Eos # (Auto) Baso # (Auto) Immature Gran # (Auto) Sodium Potassium Chloride Carbon Dioxide Anion Gap BUN Creatinine Est Cr Clr Drug Dosing Est GFR ( Amer) Est GFR (Non-Af Amer) BUN/Creatinine Ratio Glucose POC Glucose 241 H 109 H 330 H* Calcium Random Vancomycin 12/27/22 12/27/22 12/28/22 20:38 20:40 06:19 WBC 5.71 RBC 2.79 L Hgb 8.9 L Hct 27.2 L MCV 97.5 D MCH 31.9 MCHC 32.7 RDW Std Deviation 48.1 H RDW Coeff of Evette 13.3 Plt Count 160 MPV 10.9 Immature Gran % (Auto) 0.2 Neut % (Auto) 62.3 Lymph % (Auto) 27.3 Day % (Auto) 7.0 Eos % (Auto) 2.8 Baso % (Auto) 0.4 Neut # (Auto) 3.56 Lymph # (Auto) 1.56 Day # (Auto) 0.40 Eos # (Auto) 0.16 Baso # (Auto) 0.02 Immature Gran # (Auto) 0.01 Sodium Potassium Chloride Carbon Dioxide Anion Gap BUN Creatinine Est Cr Clr Drug Dosing Est GFR ( Amer) Est GFR (Non-Af Amer) BUN/Creatinine Ratio Glucose POC Glucose 117 H 122 H Calcium Random Vancomycin 12/28/22 12/28/22 12/28/22 06:19 06:19 08:10 WBC RBC Hgb Hct MCV MCH MCHC RDW Std Deviation RDW Coeff of Evette Plt Count MPV Immature Gran % (Auto) Neut % (Auto) Lymph % (Auto) Day % (Auto) Eos % (Auto) Baso % (Auto) Neut # (Auto) Lymph # (Auto) Day # (Auto) Eos # (Auto) Baso # (Auto) Immature Gran # (Auto) Sodium 135 L Potassium 4.7 Chloride 101 Carbon Dioxide 28 Anion Gap 6 BUN 19 Creatinine 4.04 H D Est Cr Clr Drug Dosing 11.6 Est GFR ( Amer) 13.0 Est GFR (Non-Af Amer) 11.2 BUN/Creatinine Ratio 4.7 L Glucose 84 POC Glucose 85 Calcium 8.8 Random Vancomycin 8.4 L PG Care Time/CCT Total # of Minutes Spent Total Time Spent with Patient: Total time spent is greater than 50% in coordination of care (as documented) at patient's floor/unit and/or counseling patient: Coding Level of Care Code 02963 SUB INP/OBS CARE 3/50MIN Diagnoses ESRD (end stage renal disease) on dialysis N18.6; Z99.2 HTN (hypertension) I10 Anemia D64.9 Open wound of left foot S91.302A Encounter type: initial encounter (4) Open wound of left foot Encounter type: initial encounter Qualified Code(s): S91.302A - Unspecified open wound, left foot, initial encounter
[2022-12-28] MEDS: CEFEPIME 1,000 MG in SYRINGE 0 ML IV SCH (12:43)
[2022-12-28] MEDS: AMPICILLIN/SULBACTAM SOD 3,000 MG in 0.9 % SODIUM CHLORIDE 100 ML IV SCH (15:54)
--- NOTE | 2022-12-28 19:07 | Hospitalist Progress Note ---
Date of Service December 28, 2022 Assessment & Plan (1) Open wound of left foot: Plan: POD #2 s/p debridement and placement of wound vac by Dr Dias over the L 5th metatarsal area. She had L 5th toe amputation 11/14/[address] Dias due to osteomyelitis. She has had poor wound healing. Surface wound culture from 12/25 and deep wound culture from the OR on 12/26 both with e.coli + MSSA. Can narrow abx today - stop IV vanco, stop IV cefepime. In the event there are anaerobes that did not grow, etc will switch to IV unasyn. I corresponded with Dr Dias from podiatry - to determine length of course of abx will need MRI L foot to ensure no osteomyelitis of remaining portion of L 5th metatarsal bone. If negative for osteomyelitis can likely treat with short course of IV/PO abx. Await MRI L foot. (2) PAD (peripheral artery disease): Plan: Patient had some form of angioplasty with stent placement of b/l LEs several months ago in [facility]. Details uncertain. Records are unavailable. She had b/l arterial dopplers of legs on 11/12/22 showing stenosis of the left proximal SFA with estimated stenosis of 50-74% based on peak systolic velocity criteria. The remaining LE vessels were monophasic in nature. She remains on statin, asa, and plavix. It is uncertain if she has adequate blood flow to the left foot to ensure wound healing. Will consult Dr Campbell from cardiology for his opinion. Request records from [facility]. (3) ESRD (end stage renal disease) on dialysis: Plan: Appreciate [facility] Nephrology consultation and HD management. Scheduled - M/W/F. Volume status, electrolytes are acceptable. Cont sevelamer TID w/ meals. (4) HTN (hypertension): Plan: Stable. Continue current medical management with amlodipine, clonidine, lasix, imdur, lisinopril, and metoprolol. Given the # of BP meds she is on consider renin/yoko levels as well as renal artery duplex. (5) CAD (coronary artery disease): Plan: follows with [facility]. cont asa, plavix, BB, statin, imdur. no ischemic symptoms at this time. (6) Anemia: Plan: 2nd to ESRD. defer Fe management, etc to nephrology. (7) Hyperlipidemia: Plan: cont statin (8) Hypothyroidism: Plan: TSH in 11/2022 was wnl cont synthroid (9) DM II (diabetes mellitus, type II), controlled: Plan: a1c 5.6% November 2022 DM diet novolog SSI BSGs controlled (10) DVT prophylaxis: Plan: heparin 5000 BID (11) Depression: Plan: will need to investigate this in more detail tomorrow consider meds if necessary Plan needs PT, OT Admission and Anticipated Discharge Date Admission Date: December 25, 2022 Subjective pt reports that several months ago at [facility] she underwent arteriogram with placement of b/l stents in LEs she also had angioplasty to her recollection cannot remember the provider who did the procedure - it was a same-day procedure and there were no complications she c/o left foot pain but not severe eating/drinking fair at best -- she typically only eats 1 meal/day at home the patient did not mention this to me during the visit but apparently earlier in the day the pt mentioned to nursing staff she has depressed for some time as even contemplated stopping dialysis Review of Systems Review of Systems: gen - no fevers cv - no cp, no orthopnea pulm - no dyspnea GI - no diarrhea Physical Exam Physical Exam: gen - NAD, lying flat in bed comfortably mouth - MMM, no thrush heart - RRR, s1 s2, 1/6 MARILY LSB lung - CTA b/l abd - soft NT ND BS+ vascular - AV fistula RUE; popliteal pulses b/l 1+; pulses R foot 1-2+; L foot 1+ ext - left foot with dressings and wound vac in place; right foot w/o edema psych - a/o x 3 Results & Data Results & Data Vital Signs (Past 12 Hours) Vital Signs Temp Pulse Resp BP Pulse Ox O2 Del Method 12/28/22 15:15 37 C 18 L 18 166/92 H 98 Room Air 12/28/22 08:30 Room Air Laboratory Results Laboratory Results - last 24 hr 12/27/22 12/27/22 12/27/22 20:37 20:38 20:40 WBC RBC Hgb Hct MCV MCH MCHC RDW Std Deviation RDW Coeff of Evette Plt Count MPV Immature Gran % (Auto) Neut % (Auto) Lymph % (Auto) Ballard % (Auto) Eos % (Auto) Baso % (Auto) Neut # (Auto) Lymph # (Auto) Ballard # (Auto) Eos # (Auto) Baso # (Auto) Immature Gran # (Auto) Sodium Potassium Chloride Carbon Dioxide Anion Gap BUN Creatinine Est Cr Clr Drug Dosing Est GFR ( Amer) Est GFR (Non-Af Amer) BUN/Creatinine Ratio Glucose POC Glucose 330 H* 117 H 122 H Calcium Random Vancomycin 12/28/22 12/28/22 12/28/22 06:19 06:19 06:19 WBC 5.71 RBC 2.79 L Hgb 8.9 L Hct 27.2 L MCV 97.5 D MCH 31.9 MCHC 32.7 RDW Std Deviation 48.1 H RDW Coeff of Evette 13.3 Plt Count 160 MPV 10.9 Immature Gran % (Auto) 0.2 Neut % (Auto) 62.3 Lymph % (Auto) 27.3 Ballard % (Auto) 7.0 Eos % (Auto) 2.8 Baso % (Auto) 0.4 Neut # (Auto) 3.56 Lymph # (Auto) 1.56 Ballard # (Auto) 0.40 Eos # (Auto) 0.16 Baso # (Auto) 0.02 Immature Gran # (Auto) 0.01 Sodium 135 L Potassium 4.7 Chloride 101 Carbon Dioxide 28 Anion Gap 6 BUN 19 Creatinine 4.04 H D Est Cr Clr Drug Dosing 11.6 Est GFR ( Amer) 13.0 Est GFR (Non-Af Amer) 11.2 BUN/Creatinine Ratio 4.7 L Glucose 84 POC Glucose Calcium 8.8 Random Vancomycin 8.4 L 12/28/22 12/28/22 12/28/22 08:10 11:59 16:57 WBC RBC Hgb Hct MCV MCH MCHC RDW Std Deviation RDW Coeff of Evette Plt Count MPV Immature Gran % (Auto) Neut % (Auto) Lymph % (Auto) Ballard % (Auto) Eos % (Auto) Baso % (Auto) Neut # (Auto) Lymph # (Auto) Ball[place] # (Auto) Eos # (Auto) Baso # (Auto) Immature Gran # (Auto) Sodium Potassium Chloride Carbon Dioxide Anion Gap BUN Creatinine Est Cr Clr Drug Dosing Est GFR ( Amer) Est GFR (Non-Af Amer) BUN/Creatinine Ratio Glucose POC Glucose 85 193 H 86 Calcium Random Vancomycin Diagnostic Findings 12/26 intra-op deep wound culture from L foot - MSSA, e.coli admission blood cultures negative PG Care Time/CCT Total # of Minutes Spent Total Time Spent with Patient: Total time spent is greater than 50% in coordination of care (as documented) at patient's floor/unit and/or counseling patient: Coding Level of Care Code 31138 SUB INP/OBS CARE 3/50MIN Diagnoses Open wound of left foot S91.302A Encounter type: initial encounter PAD (peripheral artery disease) I73.9 ESRD (end stage renal disease) on dialysis N18.6; Z99.2 HTN (hypertension) I10 CAD (coronary artery disease) I25.10 Anemia D64.9 Hyperlipidemia E78.5 Hypothyroidism E03.9 DM II (diabetes mellitus, type II), controlled E11.9 DVT prophylaxis Z29.9 Depression F32.A (1) Open wound of left foot Encounter type: initial encounter Qualified Code(s): S91.302A - Unspecified open wound, left foot, initial encounter
[2022-12-28] MEDS: ZOLPIDEM TARTRATE 5 MG TAB PO SCH (19:35)
[2022-12-28] MEDS: ISOSORBIDE MONO EXTENDED REL 30 MG TABCR PO SCH (19:36)
[2022-12-28] MEDS: AMITRIPTYLINE HCL 100 MG TAB PO SCH (19:37)
[2022-12-28] MEDS: ATORVASTATIN 40 MG TAB PO SCH (19:37)
[2022-12-28] MEDS: LATANOPROST 0.005% OP SOLN 2.5 ML BTL OP SCH (19:38)
[2022-12-29] MEDS: oxyCODONE HCL IR 5 MG TAB (IMMEDIATE RELEASE) PO PRN ×3 (01:06→19:36)
[2022-12-29] MEDS: AMPICILLIN/SULBACTAM SOD 3,000 MG in 0.9 % SODIUM CHLORIDE 100 ML IV SCH ×2 (03:05→16:47)
[2022-12-29] MEDS: LEVOTHYROXINE SODIUM 125 MCG TABLET PO SCH (05:36)
[2022-12-29 06:59] LABS: Basophils # (auto) 0.03 K/uL (0-0.2); Basophils % (auto) 0.5 %; Eosinophils # (auto) 0.15 K/uL (0-0.50); Eosinophils % (auto) 2.5 %; Hematocrit (blood only) 25.8 % (37.0-47.0); Hemoglobin 8.6 g/dl (12.0-16.0); Immature Granulocytes # (auto) 0.02 K/uL (0.01-0.20); Immature Granulocytes % (auto) 0.3 %; Lymphocytes # (auto) 1.69 K/uL (1.2-3.4); Mean Corpuscular Hemoglobin 31.5 pg (25.0-34.0); Mean Corpuscular Hgb Conc 33.3 g/dL (32.0-36.0); Mean Corpuscular Volume 94.5 fL (80.0-100.0); Mean Platelet Volume 11.1 fL (9.4-12.4); Monocytes # (auto) 0.46 K/uL (0.11-0.59); Monocytes % (auto) 7.6 %; Neutrophils # (auto) 3.69 K/uL (1.40-6.50); Neutrophils % (auto) 61.1 %; Platelet Count 170 K/uL (130-400); RDW Coefficient of Variation 13.1 % (11.5-14.5); RDW Standard Deviation 45.1 fL (36.4-46.3); Red Blood Count 2.73 M/uL (4.20-5.40); White Blood Count 6.04 K/ul (4.8-10.8)
[2022-12-29] MEDS ORDERED: EPOETIN ALFA 20,000 UNITS/ML VIAL IV ONE (07:00)
[2022-12-29 07:40] LABS: BUN Creatinine Ratio 6.7 (10-20); Creatinine Clr Calc Pharmacy 8.2 ml/min; Est GFR (African American) 8.6 ml/min; Est GFR (Non-African American) 7.5 ml/min
[2022-12-29] MEDS: INSULIN ASPART PER UNIT CHARGE SC SCH ×4 (08:36→20:44)
[2022-12-29] MEDS: FUROSEMIDE 40 MG TAB PO SCH (09:57)
[2022-12-29] MEDS: lisinopril 40 MG TAB PO SCH (09:57)
[2022-12-29] MEDS: SEVELAMER HCL 800 MG TABLET PO SCH ×3 (11:40→16:50)
[2022-12-29] MEDS: METOPROLOL TARTRATE 50 MG TAB PO SCH ×2 (11:41→19:37)
[2022-12-29] MEDS: cloNIDine HCL 0.1 MG TAB PO SCH (11:41)
[2022-12-29] MEDS: CEROVITE ADV FORMULA TAB PO SCH (11:41)
[2022-12-29] MEDS: CLOPIDOGREL BISULFATE 75 MG TAB PO SCH (11:41)
[2022-12-29] MEDS: amLODIPine BESYLATE 5 MG TAB PO SCH (11:41)
[2022-12-29] MEDS: allopurinoL 100 MG TAB PO SCH (11:41)
[2022-12-29] MEDS: LORATADINE 10 MG TAB PO SCH (11:41)
[2022-12-29] MEDS: ASPIRIN 81 MG CHEW PO SCH (11:42)
[2022-12-29] MEDS: PANTOprazole 40 MG TAB PO SCH (11:42)
[2022-12-29] MEDS: HEPARIN SOD 5,000 UNIT/0.5 ML VIAL SQ SCH ×2 (11:42→19:36)
--- NOTE | 2022-12-29 11:42 | Hospitalist Progress Note ---
Date of Service December 29, 2022 Assessment & Plan (1) Open wound of left foot: Plan: Acute wound infection of left foot complicated by diabetes, PAD, and ESRD. - Cultures from 26 December obtained in OR and 15July obtained on admission - E. COLI and MSSA - Currently on day #2 of Unasyn - Renally dosed and scheduled appropriate following dialysis - Completed 2 days of Cefepime and Vancomycin prior - Afebrile overnight- WBC count and NLR- normal limits - MRI today pending- Case discussed yesterday by hospitalist with electronic engineering technician for ongoing/length of therapy- consider ID consultation pending clinical course - Continue wound vac (2) PAD (peripheral artery disease): Plan: Chronic- review of chart implies that patient did have some intervention to BLE for her PAD at [facility]- no outside records received or available for review at this time. - Bilateral arterial Doppler 12/03- stenosis of the left proximal SFA with estimated stenosis of 50-74% based on peak systolic velocity criteria and remaining vessels interpreted as monophasic - In regards to this impacting her wound healing, awaiting evaluation by interventional cardiology/vascular - Dr. Campbell for further studies/treatments to optimize #1 - Continue ASA/Plavix (3) DM II (diabetes mellitus, type II), controlled: Plan: Chronic - controlled currently with HGBa1c 5.6% in November 2022 Carb consistent diet Novolog SSI BSGs controlled (4) ESRD (end stage renal disease) on dialysis: Plan: Chronic- she has AV fistula in right bicep - MWF dialysis- appreciate Nephrology assistance - Fluid Volume status controll with dialysis - Hold Lasix - Follow renal indices and electrolytes - Continue sevelimir (5) HTN (hypertension): Plan: Chronic/Stable. - Continue current medical plan with amlodipine, clonidine, imdur, lisinopril, and metoprolol. (6) CAD (coronary artery disease): Plan: Chronic stable- without chest pain or symptoms -follows with [facility]. -cont asa, plavix, BB, statin, imdur. (7) Anemia: Plan: Chronic- AOCD 2nd to ESRD. defer Fe management, to nephrology. (8) Hyperlipidemia: Plan: Chronic cont statin (9) Hypothyroidism: Plan: Chronic TSH in 11/2022 was normal limits cont Synthroid (10) DVT prophylaxis: Plan: heparin 5000 BID (11) Depression: Plan: Patient voices no concerns of depression or suicide ideations at this time - continue to follow her response and feelings Plan needs PT, OT Admission and Anticipated Discharge Date Admission Date: December 25, 2022 Supervising Physician Co-Signing Physician Notes FLYING INSTRUCTOR Supervision Note: I did not personally see or examine the patient. I verified all morris points and agree with Rick ENRIQUEZ with the following exceptions and/or additions: MRI with ? postsurgical changes at prox shaft of 5th metatarsal (vs. osteo), as well as concern for developing OM at left 4th metatarsal and base of left 4th prox phalanx, follow up with Podiatry Subjective Patient is HD# 4 and POD #3 for debridement. Admitted for infected left foot wound in the setting of PAD, DM, and ESRD. She is pending MRI today to assist with assessment of osteo/length of abx as well as evaluation by interventional vascular/cardiology- Dr. Campbell for her PAD of LLE. She was evaluated in the dialysis unit undergoing GRANTS ASSISTANT. She is being followed by Nephrology and Cardiology/Vascular. Cultures from LLE on [id number] is positive for E.Coli and Staph Aureus (MSSA)- Currently Day #2 of Unasyn. Await imaging and consultation for disposition. She voices no concerns this morning, tolerating diet, pain controlled, can't remember last BM so will add on stool softner. She voices that she urinates once daily. Hold MILLIE today pending dialysis (restart 12/30/22) and hold Lasix. CODE: DNR/DNI Physical Exam Physical Exam: PHYSICAL EXAM: General: awake, alert, no apparent distress Head: Normocephalic, atraumatic ENT: PERRL, EOMI, no pharyngeal exudate, mucous membranes dry Neuro: AAO x 3, speech clear and appropriate, strength intact bilaterally 5/5, sensation intact and equal all extremities and dermatomes, no pronator drift Chest: equal rise and fall of the chest, no accessory muscle use, decreased in bases Cardiac: Regular rate and rhythm, telemetry reviewed, skin warm dry, cap refill <3 seconds, peripheral pulses +2 Upper, 1+ left lower no JVD, no murmur, GI: NABS x 4 quadrants, soft, nontender to palpation, no rebound, guarding or tenderness : Spontaneously voiding- voids once per day Skin: wound to left foot and redness of both heels Results & Data Results & Data Vital Signs (Past 12 Hours) Vital Signs Temp Pulse Pulse Pulse Resp BP BP 12/29/22 11:00 58 L 137/47 L 12/29/22 10:30 57 L 134/44 L 12/29/22 10:00 55 L 93/65 L 12/29/22 09:30 58 L 127/44 L 12/29/22 09:00 58 L 134/39 L 12/29/22 08:30 55 L 124/52 L 12/29/22 08:08 56 L 142/44 H 12/29/22 07:59 36.8 C 58 L 12/29/22 07:01 36.8 C 62 16 145/63 H Pulse Ox O2 Del Method 12/29/22 11:00 12/29/22 10:30 12/29/22 10:00 12/29/22 09:30 12/29/22 09:00 12/29/22 08:30 12/29/22 08:08 12/29/22 07:59 12/29/22 07:01 96 Room Air Laboratory Results Laboratory Results - last 24 hr 12/28/22 12/28/22 12/28/22 11:59 16:57 20:39 WBC RBC Hgb Hct MCV MCH MCHC RDW Std Deviation RDW Coeff of Evette Plt Count MPV Immature Gran % (Auto) Neut % (Auto) Lymph % (Auto) Churchill % (Auto) Eos % (Auto) Baso % (Auto) Neut # (Auto) Lymph # (Auto) Churchill # (Auto) Eos # (Auto) Baso # (Auto) Immature Gran # (Auto) Sodium Potassium Chloride Carbon Dioxide Anion Gap BUN Creatinine Est Cr Clr Drug Dosing Est GFR ( Amer) Est GFR (Non-Af Amer) BUN/Creatinine Ratio Glucose POC Glucose 193 H 86 130 H Calcium 12/29/22 12/29/22 06:23 06:23 WBC 6.04 RBC 2.73 L Hgb 8.6 L Hct 25.8 L MCV 94.5 MCH 31.5 MCHC 33.3 RDW Std Deviation 45.1 RDW Coeff of Evette 13.1 Plt Count 170 MPV 11.1 Immature Gran % (Auto) 0.3 Neut % (Auto) 61.1 Lymph % (Auto) 28.0 Churchill % (Auto) 7.6 Eos % (Auto) 2.5 Baso % (Auto) 0.5 Neut # (Auto) 3.69 Lymph # (Auto) 1.69 Churchill # (Auto) 0.46 Eos # (Auto) 0.15 Baso # (Auto) 0.03 Immature Gran # (Auto) 0.02 Sodium 133 L Potassium 5.0 Chloride 99 Carbon Dioxide 29 Anion Gap 5 BUN 38 H Creatinine 5.67 H* D Est Cr Clr Drug Dosing 8.2 Est GFR ( Amer) 8.6 Est GFR (Non-Af Amer) 7.5 BUN/Creatinine Ratio 6.7 L Glucose 92 POC Glucose Calcium 9.0 Medications Administered Acetaminophen (Acetaminophen 325 Mg Tab) 650 mg PO Q4H PRN PRN Reason: pain/fever Stop: 01/24/23 19:04 Last Admin: 12/27/22 17:23 Dose: 650 mg Documented By: Admin: 12/27/22 09:02 Dose: 650 mg Documented By: EMETERIO Allopurinol (Allopurinol 100 Mg Tab) 100 mg PO DAILY [facility] Stop: 01/25/23 08:59 Last Admin: 12/29/22 11:41 Dose: 100 mg Documented By: Admin: 12/28/22 08:36 Dose: 100 mg Documented By: Admin: 12/27/22 08:14 Dose: 100 mg Documented By: Admin: 12/26/22 07:29 Dose: Not Given Documented By: ASHLEY Amitriptyline HCl (Amitriptyline Hcl 100 Mg Tab) 100 mg PO [facility] Stop: 01/24/23 20:59 Last Admin: 12/28/22 19:37 Dose: 100 mg Documented By: Admin: 12/27/22 19:45 Dose: 100 mg Documented By: Admin: 12/26/22 19:33 Dose: 100 mg Documented By: Admin: 12/25/22 19:54 Dose: 100 mg Documented By: DARIAN Amlodipine Besylate (Amlodipine Besylate 5 Mg Tab) 2.5 mg PO DAILY [facility] Stop: 01/25/23 08:59 Last Admin: 12/29/22 11:41 Dose: 2.5 mg Documented By: Admin: 12/28/22 08:37 Dose: 2.5 mg Documented By: Admin: 12/27/22 08:11 Dose: 2.5 mg Documented By: Admin: 12/26/22 07:29 Dose: 2.5 mg Documented By: ASHLEY Aspirin (Aspirin 81 Mg Chew) 81 mg PO DAILY [facility] Stop: 01/25/23 08:59 Last Admin: 12/29/22 11:42 Dose: 81 mg Documented By: Admin: 12/28/22 08:36 Dose: 81 mg Documented By: Admin: 12/27/22 08:13 Dose: 81 mg Documented By: Admin: 12/26/22 07:29 Dose: Not Given Documented By: ASHLEY Atorvastatin Calcium (Atorvastatin 40 Mg Tab) 40 mg PO HS [facility] Stop: 01/24/23 20:59 Last Admin: 12/28/22 19:37 Dose: 40 mg Documented By: Admin: 12/27/22 19:46 Dose: 40 mg Documented By: Admin: 12/26/22 19:34 Dose: 40 mg Documented By: Admin: 12/25/22 19:54 Dose: 40 mg Documented By: DARIAN Clonidine HCl (Clonidine Hcl 0.1 Mg Tab) 0.1 mg PO DAILY [facility] Stop: 01/25/23 08:59 Last Admin: 12/29/22 11:41 Dose: 0.1 mg Documented By: Admin: 12/28/22 08:37 Dose: 0.1 mg Documented By: Admin: 12/27/22 08:13 Dose: 0.1 mg Documented By: Admin: 12/26/22 07:30 Dose: 0.1 mg Documented By: ASHLEY Clopidogrel Bisulfate (Clopidogrel Bisulfate 75 Mg Tab) 75 mg PO DAILY [facility] Stop: 01/25/23 08:59 Last Admin: 12/29/22 11:41 Dose: 75 mg Documented By: Admin: 12/28/22 08:36 Dose: 75 mg Documented By: Admin: 12/27/22 08:12 Dose: 75 mg Documented By: Admin: 12/26/22 07:28 Dose: Not Given Documented By: ASHLEY Furosemide (Furosemide 40 Mg Tab) 40 mg PO DAILY [facility] Stop: 01/25/23 08:59 Last Admin: 12/29/22 09:57 Dose: Not Given Documented By: Admin: 12/28/22 08:37 Dose: 40 mg Documented By: Admin: 12/27/22 08:13 Dose: 40 mg Documented By: Admin: 12/26/22 07:28 Dose: Not Given Documented By: ASHLEY Heparin Sodium (Porcine) (Heparin Sod 5,000 Unit/0.5 Ml Vial) 5,000 units SQ Q12 [facility] Stop: 01/25/23 20:59 Last Admin: 12/29/22 11:42 Dose: 5,000 units Documented By: Admin: 12/28/22 19:37 Dose: 5,000 units Documented By: Admin: 12/28/22 08:38 Dose: 5,000 units Documented By: Admin: 12/27/22 19:46 Dose: 5,000 units Documented By: Admin: 12/27/22 09:02 Dose: 5,000 units Documented By: Admin: 12/26/22 19:32 Dose: 5,000 units Documented By: DARIAN Ampicillin Sodium/Sulbactam Sodium 3,000 mg/ Sodium Chloride 108 mls @ 216 mls/hr IV Q12H [facility] Stop: 01/04/23 13:29 Last Infusion: 12/29/22 04:23 Dose: 0 mls/hr Documented By: Admin: 12/29/22 03:05 Dose: 216 mls/hr Documented By: Infusion: 12/28/22 16:30 Dose: 0 mls/hr Documented By: Admin: 12/28/22 15:54 Dose: 216 mls/hr Documented By: PATTI Insulin Aspart (Insulin Aspart Per Unit Charge) 0 units SC ACHS [facility] Stop: 01/25/23 07:29 Last Admin: 12/29/22 08:36 Dose: Not Given Documented By: Admin: 12/28/22 21:05 Dose: Not Given Documented By: DARIAN Co-signed By: LASHAWN Admin: 12/28/22 17:22 Dose: Not Given Documented By: Admin: 12/28/22 12:36 Dose: Not Given Documented By: Admin: 12/28/22 08:14 Dose: Not Given Documented By: Admin: 12/27/22 20:43 Dose: Not Given Documented By: DARIAN Co-signed By: VIVI Admin: 12/27/22 17:26 Dose: Not Given Documented By: Admin: 12/27/22 12:21 Dose: 2 units Documented By: EMETERIO Co-signed By: MARYCRUZ Admin: 12/27/22 08:34 Dose: Not Given Documented By: Admin: 12/26/22 20:53 Dose: Not Given Documented By: DARIAN Co-signed By: DIANA Admin: 12/26/22 17:08 Dose: Not Given Documented By: Admin: 12/26/22 12:16 Dose: Not Given Documented By: Admin: 12/26/22 07:29 Dose: Not Given Documented By: ASHLEY Isosorbide Mononitrate (Isosorbide Churchill Extended Rel 30 Mg Tabcr) 30 mg PO HS [facility] Stop: 01/24/23 20:59 Last Admin: 12/28/22 19:36 Dose: 30 mg Documented By: Admin: 12/27/22 19:47 Dose: 30 mg Documented By: TKDevon Admin: 12/26/22 19:34 Dose: 30 mg Documented By: TKDevon Admin: 12/25/22 19:55 Dose: 30 mg Documented By: DARIAN Latanoprost (Latanoprost 0.005% Op Soln 2.5 Ml Btl) 1 drops OP HS SH[facility]IFA Stop: 01/24/23 20:59 Last Admin: 12/28/22 19:38 Dose: 1 drops Documented By: Admin: 12/27/22 19:48 Dose: 1 drops Documented By: Admin: 12/26/22 19:35 Dose: 1 drops Documented By: Admin: 12/25/22 19:53 Dose: 1 drops Documented By: DARIAN Levothyroxine Sodium (Levothyroxine Sodium 125 Mcg Tablet) 125 mcg PO DAILYBB [facility] Stop: 01/25/23 06:29 Last Admin: 12/29/22 05:36 Dose: 125 mcg Documented By: TKDevon Admin: 12/28/22 05:34 Dose: 125 mcg Documented By: TKDevon Admin: 12/27/22 05:36 Dose: 125 mcg Documented By: Admin: 12/26/22 05:33 Dose: 125 mcg Documented By: DARIAN Lisinopril (Lisinopril 40 Mg Tab) 40 mg PO DAILY [facility] Stop: 01/25/23 08:59 Last Admin: 12/29/22 09:57 Dose: Not Given Documented By: Admin: 12/28/22 08:38 Dose: 40 mg Documented By: Admin: 12/27/22 08:13 Dose: 40 mg Documented By: Admin: 12/26/22 07:27 Dose: 40 mg Documented By: ASHLEY Loratadine (Loratadine 10 Mg Tab) 10 mg PO DAILY [facility] Stop: 01/25/23 08:59 Last Admin: 12/29/22 11:41 Dose: 10 mg Documented By: Admin: 12/28/22 08:36 Dose: 10 mg Documented By: Admin: 12/27/22 08:14 Dose: 10 mg Documented By: Admin: 12/26/22 07:28 Dose: Not Given Documented By: ASHLEY Metoprolol Tartrate (Metoprolol Tartrate 50 Mg Tab) 50 mg PO QAM SH[facility] Stop: 01/25/23 08:59 Last Admin: 12/29/22 11:41 Dose: 50 mg Documented By: Admin: 12/28/22 08:36 Dose: 50 mg Documented By: Admin: 12/27/22 08:18 Dose: Not Given Documented By: Admin: 12/26/22 07:28 Dose: 50 mg Documented By: ASHLEY Metoprolol Tartrate (Metoprolol Tartrate 50 Mg Tab) 100 mg PO HS [facility] Stop: 01/24/23 20:59 Last Admin: 12/28/22 19:35 Dose: 100 mg Documented By: Admin: 12/27/22 19:47 Dose: 100 mg Documented By: Admin: 12/26/22 19:33 Dose: 100 mg Documented By: Admin: 12/25/22 19:54 Dose: 100 mg Documented By: DARIAN Multivitamins/Minerals (Cerovite Adv Formula Tab) 1 tab PO DAILY [facility] Stop: 01/25/23 08:59 Last Admin: 12/29/22 11:41 Dose: 1 tab Documented By: Admin: 12/28/22 08:36 Dose: 1 tab Documented By: Admin: 12/27/22 08:12 Dose: 1 tab Documented By: Admin: 12/26/22 07:28 Dose: Not Given Documented By: ASHLEY Oxycodone HCl (Oxycodone Hcl Ir 5 Mg Tab (Immediate Release)) 5 - 10 mg PO Q4H PRN PRN Reason: Pain Stop: 01/08/23 19:04 Last Admin: 12/29/22 11:46 Dose: 10 mg Documented By: Admin: 12/29/22 01:06 Dose: 10 mg Documented By: Admin: 12/28/22 20:59 Dose: 10 mg Documented By: Admin: 12/28/22 08:57 Dose: 5 mg Documented By: Admin: 12/28/22 00:50 Dose: 10 mg Documented By: Admin: 12/27/22 16:22 Dose: 10 mg Documented By: Admin: 12/27/22 08:10 Dose: 10 mg Documented By: Admin: 12/26/22 20:42 Dose: 10 mg Documented By: Admin: 12/26/22 13:10 Dose: 10 mg Documented By: ASHLEY Pantoprazole Sodium (Pantoprazole 40 Mg Tab) 40 mg PO DAILY [facility]A; Protocol Stop: 01/25/23 08:59 Last Admin: 12/29/22 11:42 Dose: 40 mg Documented By: Admin: 12/28/22 08:37 Dose: 40 mg Documented By: Admin: 12/27/22 08:12 Dose: 40 mg Documented By: Admin: 12/26/22 07:27 Dose: 40 mg Documented By: ASHLEY Sevelamer HCl (Sevelamer Hcl 800 Mg Tablet) 800 mg PO TIDM [facility] Stop: 01/24/23 20:59 Last Admin: 12/29/22 11:40 Dose: 800 mg Documented By: Admin: 12/29/22 11:40 Dose: Not Given Documented By: Admin: 12/28/22 18:09 Dose: 800 mg Documented By: Admin: 12/28/22 12:37 Dose: 800 mg Documented By: Admin: 12/28/22 08:38 Dose: 800 mg Documented By: Admin: 12/27/22 17:24 Dose: 800 mg Documented By: Admin: 12/27/22 11:56 Dose: 800 mg Documented By: Admin: 12/27/22 08:12 Dose: 800 mg Documented By: Admin: 12/26/22 17:08 Dose: 800 mg Documented By: Admin: 12/26/22 12:15 Dose: 800 mg Documented By: Admin: 12/26/22 07:27 Dose: Not Given Documented By: Admin: 12/25/22 19:56 Dose: 800 mg Documented By: DARIAN Zolpidem Tartrate (Zolpidem Tartrate 5 Mg Tab) 5 mg PO HS [facility] Stop: 01/24/23 20:59 Last Admin: 12/28/22 19:35 Dose: 5 mg Documented By: Admin: 12/27/22 19:46 Dose: 5 mg Documented By: Admin: 12/26/22 19:33 Dose: 5 mg Documented By: Admin: 12/25/22 20:04 Dose: 5 mg Documented By: DARIAN Discontinued Medications Epoetin Papo (Epoetin Papo 10,000 Units/Ml Vial) 10,000 units IV ONE ONE Stop: 12/27/22 08:36 Last Admin: 12/27/22 17:23 Dose: Not Given Documented By: EMETERIO Epoetin Papo (Epoetin Papo 20,000 Units/Ml Vial) 20,000 units IV ONE ONE Stop: 12/29/22 07:01 Last Admin: 12/29/22 10:18 Dose: 20,000 units Documented By: CAMMIE Piperacillin Sod/Tazobactam Sod (Zosyn) 4.5 gm in 120 mls @ 240 mls/hr IV NOW ONE Stop: 12/25/22 16:14 Last Admin: 12/25/22 16:28 Dose: Not Given Documented By: QGV Vancomycin HCl 1,000 mg/ (Sodium Chloride) 270 mls @ 200 mls/hr IV NOW ONE Stop: 12/26/22 13:20 Last Infusion: 12/26/22 14:00 Dose: 0 mls/hr Documented By: Admin: 12/26/22 12:26 Dose: 200 mls/hr Documented By: ASHLEY Cefepime HCl 1,000 mg/ Syringe 10 mls @ 5 mls/min IV Q24H [facility] Stop: 02/06/23 11:59 Last Admin: 12/28/22 12:43 Dose: 5 mls/min Documented By: Admin: 12/27/22 11:55 Dose: 5 mls/min Documented By: Admin: 12/26/22 12:26 Dose: 5 mls/min Documented By: ASHLEY Vancomycin HCl 1,250 mg/ (Sodium Chloride) 275 mls @ 200 mls/hr IV NOW ONE Stop: 12/28/22 09:22 Last Infusion: 12/28/22 11:08 Dose: 0 mls/hr Documented By: Admin: 12/28/22 08:57 Dose: 200 mls/hr Documented By: PATTI PG Care Time/CCT Total # of Minutes Spent Total Time Spent with Patient: Total time spent is greater than 50% in coordination of care (as documented) at patient's floor/unit and/or counseling patient: Coding Level of Care Code 25117 SUB INP/OBS CARE 3/50MIN Diagnoses Open wound of left foot S91.302A Encounter type: initial encounter PAD (peripheral artery disease) I73.9 DM II (diabetes mellitus, type II), controlled E11.9 ESRD (end stage renal disease) on dialysis N18.6; Z99.2 HTN (hypertension) I10 CAD (coronary artery disease) I25.10 Anemia D64.9 Hyperlipidemia E78.5 Hypothyroidism E03.9 DVT prophylaxis Z29.9 Depression F32.A (1) Open wound of left foot Encounter type: initial encounter Qualified Code(s): S91.302A - Unspecified open wound, left foot, initial encounter
--- NOTE | 2022-12-29 12:28 | Nephrology Progress Note ---
Date of Service December 29, 2022 Assessment & Plan (1) ESRD (end stage renal disease) on dialysis: Plan: * ESKD due to diabetic nephropathy * HD MWF via AVF * Orders for HD today entered into the EHR and reviewed with lift supervisor * UF goal adjusted for low BP. Otherwise, tolerating HD well * Outpatient HD MWF [facility] Ha (3 hours, F-180NR, Qb 400/Qd 500, 2K, 35 HCO3, 137 Na, EDW 58 kg) * Medications appropriate for kidney function * Renal diet. Daily fluid restriction 1.5 L. * Continue Sevelamer QAC (2) HTN (hypertension): Plan: * Continue lisinopril, clonidine, metoprolol, Imdur, and amlodipine as per home Rx (3) Anemia: Plan: * Epogen 17534 units with HD today (4) Open wound of left foot: Plan: * POD #3 s/p I&D and application of wound vac * Culture +E coli and staph * Day #2 Unasyn Admission and Anticipated Discharge Date Admission Date: December 25, 2022 Subjective No acute events overnight. No fevers or chills. Jacqui reports adequate pain control. Very tired this AM. Slept well last night. She was seen and evaluated during dialysis. Tolerating treatment well. BP slightly low during treatment and UF goal adjusted. Review of Systems Review of Systems: All systems reviewed & are unremarkable except as noted in HPI & below Physical Exam Constitutional: WD/WN, vitals as above no acute distress Eyes: + anicteric sclerae Neck: normal visual inspection Respiratory: no respiratory distress Auscultation: lungs clear to auscultation bilaterally Cardiovascular: Rate/Rhythm: regular rate and regular rhythm Heart Sounds: normal S1 and normal S2 Extremities: + AV fistula (RT BC AVF with thrill and bruit.); no edema Skin: no rashes, warm and dry Neurologic: no focal motor deficits Psychiatric: Orientation: alert and cooperative Results & Data Vital Signs (Past 12 Hours) Vital Signs Temp Pulse Pulse Pulse Resp BP BP 12/29/22 11:12 36.6 C 60 152/52 H 12/29/22 11:00 58 L 137/47 L 12/29/22 10:30 57 L 134/44 L 12/29/22 10:00 55 L 93/65 L 12/29/22 09:30 58 L 127/44 L 12/29/22 09:00 58 L 134/39 L 12/29/22 08:30 55 L 124/52 L 12/29/22 08:08 56 L 142/44 H 12/29/22 07:59 36.8 C 58 L 12/29/22 07:01 36.8 C 62 16 145/63 H Pulse Ox O2 Del Method 12/29/22 11:12 12/29/22 11:00 12/29/22 10:30 12/29/22 10:00 12/29/22 09:30 12/29/22 09:00 12/29/22 08:30 12/29/22 08:08 12/29/22 07:59 12/29/22 07:01 96 Room Air Laboratory Results Laboratory Results - last 24 hr 12/28/22 12/28/22 12/29/22 16:57 20:39 06:23 WBC 6.04 RBC 2.73 L Hgb 8.6 L Hct 25.8 L MCV 94.5 MCH 31.5 MCHC 33.3 RDW Std Deviation 45.1 RDW Coeff of Evette 13.1 Plt Count 170 MPV 11.1 Immature Gran % (Auto) 0.3 Neut % (Auto) 61.1 Lymph % (Auto) 28.0 Ashley % (Auto) 7.6 Eos % (Auto) 2.5 Baso % (Auto) 0.5 Neut # (Auto) 3.69 Lymph # (Auto) 1.69 Ashley # (Auto) 0.46 Eos # (Auto) 0.15 Baso # (Auto) 0.03 Immature Gran # (Auto) 0.02 Sodium Potassium Chloride Carbon Dioxide Anion Gap BUN Creatinine Est Cr Clr Drug Dosing Est GFR ( Amer) Est GFR (Non-Af Amer) BUN/Creatinine Ratio Glucose POC Glucose 86 130 H Calcium 12/29/22 12/29/22 06:23 11:59 WBC RBC Hgb Hct MCV MCH MCHC RDW Std Deviation RDW Coeff of Evette Plt Count MPV Immature Gran % (Auto) Neut % (Auto) Lymph % (Auto) Ashley % (Auto) Eos % (Auto) Baso % (Auto) Neut # (Auto) Lymph # (Auto) Ashley # (Auto) Eos # (Auto) Baso # (Auto) Immature Gran # (Auto) Sodium 133 L Potassium 5.0 Chloride 99 Carbon Dioxide 29 Anion Gap 5 BUN 38 H Creatinine 5.67 H* D Est Cr Clr Drug Dosing 8.2 Est GFR ( Amer) 8.6 Est GFR (Non-Af Amer) 7.5 BUN/Creatinine Ratio 6.7 L Glucose 92 POC Glucose 81 Calcium 9.0 PG Care Time/CCT Total # of Minutes Spent Total Time Spent with Patient: Total time spent is greater than 50% in coordination of care (as documented) at patient's floor/unit and/or counseling patient: Coding Level of Care Code 39111 SUB INP/OBS CARE 350MIN Diagnoses ESRD (end stage renal disease) on dialysis N18.6; Z99.2 HTN (hypertension) I10 Anemia D64.9 Open wound of left foot S91.302A Encounter type: initial encounter (4) Open wound of left foot Encounter type: initial encounter Qualified Code(s): S91.302A - Unspecified open wound, left foot, initial encounter
--- NOTE | 2022-12-29 15:29 | Ultrasound Report ---
ANKLE TO BRACHIAL INDICES CLINICAL HISTORY: Peripheral arterial disease. COMPARISON STUDY: Bilateral lower extremity arterial Doppler ultrasound November 12, 2022. TECHNIQUE: Ankle to brachial indices were attempted. Right ankle to brachial index could not be obtai honorio due to vessel noncompressibility. FINDINGS: The right ankle-brachial index could not be obtained due to vessel noncompressibility. The left ankle to brachial index measured 1.12 when using the dorsalis pedis and 0.65 when using posterio r tibial artery. The left toe to brachial index measured 0.16. IMPRESSION: 1. Left ankle to brachial index of 1.12, as described above. However, this could be artifactually leonid vated due to atherosclerotic calcification. Unable to obtain right ankle to brachial index. 2. Significantly diminished left toe to brachial index of 0.16. This indicates atherosclerotic diseas e. ACT 112: Negative or not required by law. Electronically signed by: Brian Jackson M.D. 12/29/2022 3:28 PM
--- NOTE | 2022-12-29 15:48 | Magnetic Resonance Report ---
MR foot LT w/o con HISTORY: Nonhealing left foot wound. Rule out osteomyelitis TECHNIQUE: Multiplanar multisequence MRI of the left forefoot was performed without contrast accordin g to standard departmental protocol. COMPARISON STUDY: Left foot radiograph 12/25/2022. FINDINGS: Suboptimal evaluation the foot due to the motion artifact. Patient is status post resection of the fifth metatarsal head/toe. Abnormal marrow signal within the residual proximal shaft of the f ifth metatarsal is nonspecific but favors postoperative change. Underlying infection would be a possi ble to exclude. There is abnormal T2 hyperintense, T1 hypointense marrow signal throughout the majori ty of the left fourth metatarsal and base of the left fourth toe proximal phalanx. No definite destru ctive changes at this time. However, in the absence of recent surgery of the fourth metatarsal/toe, t hese findings are concerning for a developing osteomyelitis. There is a normal marrow signal intensit y seen throughout the remaining osseous structures of the forefoot. Diffuse soft tissue edema within the forefoot is noted. No definite fractures identified. No dislocation. No loculated fluid collectio ns to suggest an abscess. IMPRESSION: 1. Difficult evaluation of the left forefoot due to the motion artifact. 2. Patient is status post resection of the left fifth metatarsal head/toe. 3. Abnormal marrow signal within the residual proximal shaft of the fifth metatarsal is nonspecific b ut favors postoperative change. Underlying infection would be impossible to exclude. 4. There is also abnormal marrow signal within the majority of the left fourth metatarsal and base of the left fourth toe proximal phalanx. No destructive changes identified. However, in the absence of recent surgery at the fourth metatarsal/toe, these findings are concerning for a developing osteomyel itis. ACT 112: Negative or not required by law. Electronically signed by: Mark Stevens M.D. 12/29/2022 3:46 PM
[2022-12-29] MEDS: ZOLPIDEM TARTRATE 5 MG TAB PO SCH (19:36)
[2022-12-29] MEDS: AMITRIPTYLINE HCL 100 MG TAB PO SCH (19:38)
[2022-12-29] MEDS: ISOSORBIDE MONO EXTENDED REL 30 MG TABCR PO SCH (19:38)
[2022-12-29] MEDS: ATORVASTATIN 40 MG TAB PO SCH (19:39)
[2022-12-29] MEDS: LATANOPROST 0.005% OP SOLN 2.5 ML BTL OP SCH (19:39)
[2022-12-30] MEDS: AMPICILLIN/SULBACTAM SOD 3,000 MG in 0.9 % SODIUM CHLORIDE 100 ML IV SCH ×2 (03:06→16:33)
[2022-12-30] MEDS: LEVOTHYROXINE SODIUM 125 MCG TABLET PO SCH (05:29)
--- NOTE | 2022-12-30 06:24 | Orthopedic Progress Note ---
Date of Service December 30, 2022 Assessment & Plan (1) Open wound of left foot: Plan: Patient seen, evaluated and treated. Reviewed recent MRI showing concern for possible (+)OM fourth met, base of proximal phalanx. I did review TMA with Patient who is electing for this procedure. She does understand she is at high risk for loss of limb. Patient is requesting TMA of left foot at this time. I reviewed procedure in detail as well as postoperative recovery. I discussed expectations and patient's current weightbearing status. All questions answered. I have discussed procedure in detail as well as postoperative recovery. All potential risks, benefits, complications, alternatives, rehab, potential for incomplete relief of symptoms, need for further surgery, DVT, PE, , persistent pain, swelling, scarring, weakness, neurovascular, wound complications and potential for amputations were discussed with patient. Unwanted outcomes such as, but not limited to were reviewed including under correction, overcorrection, return of deformity, infection. All questions were answered. Patient has decided to proceed with procedure as indicated. Admission and Anticipated Discharge Date Admission Date: December 25, 2022 Subjective Patient is 62 year old female with history of PAD. She is status post day#4 wound debridement and application of wound vac. Patient does continue to smoke but does note she has cut down from 4 ppd to less than 1/2 a ppd. She is concerned for non healing left foot wound and is requesting transmetatarsal amp utation. Patient states she has been to multiple wound clinics and is prepared for loss of foot if her TMA does not heal. She has previously been counseled on this. 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 COMPARISON STUDY: Bilateral lower extremity arterial Doppler ultrasound November 12, 2022. TECHNIQUE: Ankle to brachial indices were attempted. Right ankle to brachial index could not be obtained due to vessel noncompressibility. FINDINGS: The right ankle-brachial index could not be obtained due to vessel noncompressibility. The left ankle to brachial index measured 1.12 when using the dorsalis pedis and 0.65 when using posterior tibial artery. The left toe to brachial index measured 0.16. IMPRESSION: 1. Left ankle to brachial index of 1.12, as described above. However, this could be artifactually elevated due to atherosclerotic calcification. Unable to obtain right ankle to brachial index. 2. Significantly diminished left toe to brachial index of 0.16. This indicates atherosclerotic disease. ACT 112: Negative or not required by law. Electronically signed by: Brian Jackson M.D. 12/29/2022 3:28 PM MR foot LT w/o con HISTORY: Nonhealing left foot wound. Rule out osteomyelitis TECHNIQUE: Multiplanar multisequence MRI of the left forefoot was performed without contrast according to standard departmental protocol. COMPARISON STUDY: Left foot radiograph 12/25/2022. FINDINGS: Suboptimal evaluation the foot due to the motion artifact. Patient is status post resection of the fifth metatarsal head/toe. Abnormal marrow signal within the residual proximal shaft of the fifth metatarsal is nonspecific but favors postoperative change. Underlying infection would be a possible to exclude. There is abnormal T2 hyperintense, T1 hypointense marrow signal throughout the majority of the left fourth metatarsal and base of the left fourth toe proximal phalanx. No definite destructive changes at this time. However, in the absence of recent surgery of the fourth metatarsal/toe, these findings are concerning for a developing osteomyelitis. There is a normal marrow signal intensity seen throughout the remaining osseous structures of the forefoot. Diffuse soft tissue edema within the forefoot is noted. No definite fractures identified. No dislocation. No loculated fluid collections to suggest an abscess. IMPRESSION: 1. Difficult evaluation of the left forefoot due to the motion artifact. 2. Patient is status post resection of the left fifth metatarsal head/toe. 3. Abnormal marrow signal within the residual proximal shaft of the fifth metatarsal is nonspecific but favors postoperative change. Underlying infection would be impossible to exclude. 4. There is also abnormal marrow signal within the majority of the left fourth metatarsal and base of the left fourth toe proximal phalanx. No destructive changes identified. However, in the absence of recent surgery at the fourth metatarsal/toe, these findings are concerning for a developing osteomyelitis. (1) Open wound of left foot Encounter type: initial encounter Qualified Code(s): S91.302A - Unspecified open wound, left foot, initial encounter
[2022-12-30] MEDS: SEVELAMER HCL 800 MG TABLET PO SCH ×3 (07:07→18:58)
[2022-12-30] MEDS: ASPIRIN 81 MG CHEW PO SCH (07:13)
[2022-12-30] MEDS: HEPARIN SOD 5,000 UNIT/0.5 ML VIAL SQ SCH ×2 (07:13→20:31)
[2022-12-30] MEDS: CLOPIDOGREL BISULFATE 75 MG TAB PO SCH (07:13)
[2022-12-30] MEDS: lisinopril 40 MG TAB PO SCH (07:14)
[2022-12-30 08:00] LABS: Basophils # (auto) 0.03 K/uL (0-0.2); Basophils % (auto) 0.5 %; Eosinophils # (auto) 0.18 K/uL (0-0.50); Eosinophils % (auto) 2.8 %; Hematocrit (blood only) 26.9 % (37.0-47.0); Hemoglobin 8.8 g/dl (12.0-16.0); Immature Granulocytes # (auto) 0.02 K/uL (0.01-0.20); Immature Granulocytes % (auto) 0.3 %; Lymphocytes # (auto) 1.46 K/uL (1.2-3.4); Lymphocytes % (auto) 22.5 %; Mean Corpuscular Hemoglobin 31.8 pg (25.0-34.0); Mean Corpuscular Hgb Conc 32.7 g/dL (32.0-36.0); Mean Corpuscular Volume 97.1 fL (80.0-100.0); Mean Platelet Volume 11.4 fL (9.4-12.4); Monocytes # (auto) 0.51 K/uL (0.11-0.59); Monocytes % (auto) 7.8 %; Neutrophils % (auto) 66.1 %; Platelet Count 170 K/uL (130-400); RDW Coefficient of Variation 13.2 % (11.5-14.5); RDW Standard Deviation 47.1 fL (36.4-46.3); Red Blood Count 2.77 M/uL (4.20-5.40)
[2022-12-30 08:27] LABS: BUN Creatinine Ratio 7.6 (10-20); Calcium 9.2 mg/dl (8.6-10.3); Creatinine Clr Calc Pharmacy 13.2 ml/min; Est GFR (African American) 15.2 ml/min; Est GFR (Non-African American) 13.1 ml/min; Magnesium 1.7 mg/dl (1.7-2.4); Potassium 4.7 mmol/L (3.5-5.1)
[2022-12-30] MEDS: CEROVITE ADV FORMULA TAB PO SCH (08:29)
[2022-12-30] MEDS: cloNIDine HCL 0.1 MG TAB PO SCH (08:29)
[2022-12-30] MEDS: LORATADINE 10 MG TAB PO SCH (08:29)
[2022-12-30] MEDS: METOPROLOL TARTRATE 50 MG TAB PO SCH ×2 (08:29→20:33)
[2022-12-30] MEDS: amLODIPine BESYLATE 5 MG TAB PO SCH (08:30)
[2022-12-30] MEDS: INSULIN ASPART PER UNIT CHARGE SC SCH ×4 (08:30→21:39)
[2022-12-30] MEDS: allopurinoL 100 MG TAB PO SCH (08:30)
[2022-12-30] MEDS: PANTOprazole 40 MG TAB PO SCH (08:30)
[2022-12-30 08:47] LABS: Ferritin 795.9 ng/ml (8-388)
--- NOTE | 2022-12-30 11:11 | Hospitalist Progress Note ---
Date of Service December 30, 2022 Assessment & Plan (1) Open wound of left foot: Plan: Acute wound infection of left foot complicated by diabetes, PAD, and ESRD. - Cultures from 26 December obtained in OR and 15July obtained on admission - E. COLI and MSSA - Currently on day #3 of Unasyn - Renally dosed and scheduled appropriate following dialysis - completed 2 days of Cefepime and Vancomycin prior - Remains Afebrile t- WBC count and NLR- normal limits - Pending TMA today with Ortho - Continue wound vac or dressing postoperativel (2) PAD (peripheral artery disease): Plan: Chronic- review of chart implies that patient did have some intervention to BLE for her PAD at [facility]- no outside records received or available for review at this time. LEVAR completed [id number]- as above - in regards to this impacting her wound healing, awaiting evaluation by interventional cardiology/vascular - Dr. Campbell for further studies/treatments to optimize #1 - - Appreciate Dr. Campbell evaluation - plan for arteriogram on 12/31/22- NPO after midnight- discussed with Nephrology and is able to support dialysis following study - currently planned for 1300 - Continue ASA/Plavix (3) DM II (diabetes mellitus, type II), controlled: Plan: Chronic- controlled currently with HGBa1c 5.6% in November 2022 Carb consistent diet novolog SSI BSGs controlled (4) ESRD (end stage renal disease) on dialysis: Plan: Chronic- she has AV fistula in right bicep - MWF dialysis- appreciate Nephrology assistance - Fluid Volume status controll with dialysis - Hold Lasix - Follow renal indices and electrolytes - Continue sevelamer - Appreciate Nephrology recommendations (5) HTN (hypertension): Plan: Chronic/Stable. - Continue current medical plan with amlodipine, clonidine, imdur, lisinopril, and metoprolol. (6) CAD (coronary artery disease): Plan: Chronic stable- without chest pain or symptoms -follows with [facility]. -cont asa, Plavix, BB, statin, Imdur. (7) Anemia: Plan: Chronic- AOCD 2nd to ESRD. - Iron studies sent by [facility]- FE 50, TIBC low-184, Unsat IBC L-134, Ferritin H- 795 - defer Fe management, to nephrology. - HGB stable at upper 8's. (8) Hyperlipidemia: Plan: Chronic cont statin (9) Hypothyroidism: Plan: Chronic TSH in 11/2022 was normal limits cont Synthroid (10) DVT prophylaxis: Plan: heparin 5000 BID (11) Depression: Plan: Patient voices no concerns of depression or suicide ideations at this time - continue to follow her response and feelings - feels improved today and better rested Plan needs PT, OT Admission and Anticipated Discharge Date Admission Date: December 25, 2022 Supervising Physician Co-Signing Physician Notes MANAGER DATABASE Supervision Note: I did not personally see or examine the patient. I verified all morris points and agree with ZOE Hodgson with the following exceptions and/or additions: none Subjective Patient is HD# 5 and POD #4 for debridement. Admitted for infected left foot wound in the setting of PAD, DM, and ESRD. She had MRI completed on 12/29/22- which was concerning for possible continued osteomyelitis of 4th metatarsal. She is being followed by podiatry/ortho and is planned for TMA later this afternoon. She also had LEVAR's bilaterally completed 12/29/22 with incompletion of right LEVAR secondary to inability to compress vessels, LEFT LEVAR 1.12 but limited to artifact. Interventional vascular/cardiology- Dr. Campbell has been consulted for her PAD of LLE. Cultures from LLE on 26Dec2022 is positive for E.Coli and Staph Aureus (MSSA)- Currently Day #3 of Unasyn. She voices no concerns this morning, and states she feels much more rested today and improved. She states she is glad to be getting her foot taken care, because it has been causing her pain and issues for a long time. Will follow up with patient post-operatively. NPO after midnight 12/31/22- for arteriogram with Dr. Campbell on 12/31/22 Renal diet if tolerating following surgery this afternoon pain control Dialysis per Nephro Physical Exam Physical Exam: PHYSICAL EXAM: General: awake, alert, no apparent distress Head: Normocephalic, atraumatic ENT: PERRL, EOMI, no pharyngeal exudate, mucous membranes improved Neuro: AAO x 3, speech clear and appropriate, strength intact bilaterally 5/5, sensation intact and equal all extremities and dermatomes, no pronator drift Chest: equal rise and fall of the chest, no accessory muscle use, decreased in bases Cardiac: Regular rate and rhythm, skin warm dry, cap refill <3 seconds, peripheral pulses +2 Upper, 1+ left lower, 1+ right lower, no JVD, no murmur, GI: NABS x 4 quadrants, soft, nontender to palpation, no rebound, guarding or tenderness : Spontaneously voiding- voids once per day Skin: wound to left foot and redness of both heels- woundvac in place with good seal Results & Data Results & Data Vital Signs (Past 12 Hours) Vital Signs Temp Pulse Resp BP Pulse Ox O2 Del Method 12/30/22 07:48 Room Air 12/30/22 07:39 37.3 C 66 16 162/65 H 97 Room Air Laboratory Results Abnormal lab results 12/29/22 12/29/22 12/30/22 Range/Units 17:00 20:39 05:51 RBC (4.20-5.40) M/uL Hgb (12.0-16.0) g/dl Hct (37.0-47.0) % RDW Std Deviation (36.4-46.3) fL BUN (6-23) mg/dl Creatinine (0.6-1.2) mg/dl BUN/Creatinine Ratio (10-20) Glucose (70-99(Fasting)) mg/dl POC Glucose 168 H 170 H 119 H (70-99) mg/dl TIBC (250-450) mcg/dl Unsaturated IBC (155-355) mcg/dl Ferritin (8-388) ng/ml 12/30/22 12/30/22 Range/Units 07:23 07:23 RBC 2.77 L (4.20-5.40) M/uL Hgb 8.8 L (12.0-16.0) g/dl Hct 26.9 L (37.0-47.0) % RDW Std Deviation 47.1 H (36.4-46.3) fL BUN 27 H (6-23) mg/dl Creatinine 3.55 H D (0.6-1.2) mg/dl BUN/Creatinine Ratio 7.6 L (10-20) Glucose 113 H (70-99(Fasting)) mg/dl POC Glucose (70-99) mg/dl TIBC 184 L (250-450) mcg/dl Unsaturated IBC 134 L (155-355) mcg/dl Ferritin 795.9 H (8-388) ng/ml Diagnostic Findings Ankle Brachial Index 12/29/22 00:00 ANKLE TO BRACHIAL INDICES CLINICAL HISTORY: Peripheral arterial disease. COMPARISON STUDY: Bilateral lower extremity arterial Doppler ultrasound November 12, 2022. TECHNIQUE: Ankle to brachial indices were attempted. Right ankle to brachial index could not be obtained due to vessel noncompressibility. FINDINGS: The right ankle-brachial index could not be obtained due to vessel noncompressibility. The left ankle to brachial index measured 1.12 when using the dorsalis pedis and 0.65 when using posterior tibial artery. The left toe to brachial index measured 0.16. IMPRESSION: 1. Left ankle to brachial index of 1.12, as described above. However, this could be artifactually elevated due to atherosclerotic calcification. Unable to obtain right ankle to brachial index. 2. Significantly diminished left toe to brachial index of 0.16. This indicates atherosclerotic disease. ACT 112: Negative or not required by law. Electronically signed by: Brian Jackson M.D. 12/29/2022 3:28 PM Foot MRI 12/29/22 08:19 MR foot LT w/o con HISTORY: Nonhealing left foot wound. Rule out osteomyelitis TECHNIQUE: Multiplanar multisequence MRI of the left forefoot was performed without contrast according to standard departmental protocol. COMPARISON STUDY: Left foot radiograph 12/25/2022. FINDINGS: Suboptimal evaluation the foot due to the motion artifact. Patient is status post resection of the fifth metatarsal head/toe. Abnormal marrow signal within the residual proximal shaft of the fifth metatarsal is nonspecific but favors postoperative change. Underlying infection would be a possible to exclude. There is abnormal T2 hyperintense, T1 hypointense marrow signal throughout the majority of the left fourth metatarsal and base of the left fourth toe proximal phalanx. No definite destructive changes at this time. How ever, in the absence of recent surgery of the fourth metatarsal/toe, these findings are concerning for a developing osteomyelitis. There is a normal marrow signal intensity seen throughout the remaining osseous structures of the forefoot. Diffuse soft tissue edema within the forefoot is noted. No definite fractures identified. No dislocation. No loculated fluid collections to suggest an abscess. IMPRESSION: 1. Difficult evaluation of the left forefoot due to the motion artifact. 2. Patient is status post resection of the left fifth metatarsal head/toe. 3. Abnormal marrow signal within the residual proximal shaft of the fifth metatarsal is nonspecific but favors postoperative change. Underlying infection would be impossible to exclude. 4. There is also abnormal marrow signal within the majority of the left fourth metatarsal and base of the left fourth toe proximal phalanx. No destructive changes identified. However, in the absence of recent surgery at the fourth metatarsal/toe, these findings are concerning for a developing osteomyelitis. ACT 112: Negative or not required by law. Electronically signed by: Mark Stevens M.D. 12/29/2022 3:46 PM Medications Administered Active Medications Acetaminophen (Acetaminophen 325 Mg Tab) 650 mg PO Q4H PRN PRN Reason: pain/fever Stop: 01/24/23 19:04 Last Admin: 12/27/22 17:23 Dose: 650 mg Allopurinol (Allopurinol 100 Mg Tab) 100 mg PO DAILY SHARIFA Stop: 01/25/23 08:59 Last Admin: 12/30/22 08:30 Dose: 100 mg Amitriptyline HCl (Amitriptyline Hcl 100 Mg Tab) 100 mg PO HS SHARIFA Stop: 01/24/23 20:59 Last Admin: 12/29/22 19:38 Dose: 100 mg Amlodipine Besylate (Amlodipine Besylate 5 Mg Tab) 2.5 mg PO DAILY SHARIFA Stop: 01/25/23 08:59 Last Admin: 12/30/22 08:30 Dose: 2.5 mg Aspirin (Aspirin 81 Mg Chew) 81 mg PO DAILY SHARIFA Stop: 01/25/23 08:59 Last Admin: 12/30/22 07:13 Dose: Not Given Atorvastatin Calcium (Atorvastatin 40 Mg Tab) 40 mg PO HS SHARIFA Stop: 01/24/23 20:59 Last Admin: 12/29/22 19:39 Dose: 40 mg Clonidine HCl (Clonidine Hcl 0.1 Mg Tab) 0.1 mg PO DAILY SHARIFA Stop: 01/25/23 08:59 Last Admin: 12/30/22 08:29 Dose: 0.1 mg Clopidogrel Bisulfate (Clopidogrel Bisulfate 75 Mg Tab) 75 mg PO DAILY SHARIFA Stop: 01/25/23 08:59 Last Admin: 12/30/22 07:13 Dose: Not Given Dextrose (Dextrose 50% 50 Ml Syringe) 25 - 50 ml IV UD PRN; Protocol PRN Reason: Hypoglycemia Protocol Stop: 01/24/23 21:57 Furosemide (Furosemide 40 Mg Tab) 40 mg PO DAILY SHARIFA Stop: 01/25/23 08:59 Last Admin: 12/29/22 09:57 Dose: Not Given Glucagon (Glucagon For Inj 1 Mg Vial) 1 mg SQ UD PRN; Protocol PRN Reason: Hypoglycemia Protocol Stop: 01/24/23 21:57 Glucose (Glucose 10 Tab/Tube) 4 - 8 tab PO UD PRN; Protocol PRN Reason: Hypoglycemia Treatment Stop: 01/24/23 21:57 Glucose (Glucose 40% Gel 15 Gm Tube) 15 - 30 gm PO UD PRN; Protocol PRN Reason: Hypoglycemia Protocol Stop: 01/24/23 21:57 Heparin Sodium (Porcine) (Heparin Sod 5,000 Unit/0.5 Ml Vial) 5,000 units SQ Q12 SHARIFA Stop: 01/25/23 20:59 Last Admin: 12/30/22 07:13 Dose: Not Given Ampicillin Sodium/Sulbactam Sodium 3,000 mg/ Sodium Chloride 108 mls @ 216 mls/hr IV Q12H SHARIFA Stop: 01/04/23 13:29 Last Infusion: 12/30/22 03:36 Dose: Infused Insulin Aspart (Insulin Aspart Per Unit Charge) 0 units SC ACHS SHARIFA Stop: 01/25/23 07:29 Last Admin: 12/30/22 08:30 Dose: Not Given Isosorbide Mononitrate (Isosorbide Dent Extended Rel 30 Mg Tabcr) 30 mg PO HS SHARIFA Stop: 01/24/23 20:59 Last Admin: 12/29/22 19:38 Dose: 30 mg Latanoprost (Latanoprost 0.005% Op Soln 2.5 Ml Btl) 1 drops OP HS SHARIFA Stop: 01/24/23 20:59 Last Admin: 12/29/22 19:39 Dose: 1 drops Levothyroxine Sodium (Levothyroxine Sodium 125 Mcg Tablet) 125 mcg PO DAILYBB SHARIFA Stop: 01/25/23 06:29 Last Admin: 12/30/22 05:29 Dose: 125 mcg Lisinopril (Lisinopril 40 Mg Tab) 40 mg PO DAILY SHARIFA Stop: 01/25/23 08:59 Last Admin: 12/30/22 07:14 Dose: Not Given Loratadine (Loratadine 10 Mg Tab) 10 mg PO DAILY SHARIFA Stop: 01/25/23 08:59 Last Admin: 12/30/22 08:29 Dose: 10 mg Metoprolol Tartrate (Metoprolol Tartrate 50 Mg Tab) 50 mg PO QAM SHARIFA Stop: 01/25/23 08:59 Last Admin: 12/30/22 08:29 Dose: 50 mg Metoprolol Tartrate (Metoprolol Tartrate 50 Mg Tab) 100 mg PO HS SHARIFA Stop: 01/24/23 20:59 Last Admin: 12/29/22 19:37 Dose: 100 mg Miscellaneous (Carbohydrates For Hypoglycemia ) 15 - 30 gm PO UD PRN PRN Reason: Hypoglycemia Protocol Stop: 01/24/23 21:57 Multivitamins/Minerals (Cerovite Adv Formula Tab) 1 tab PO DAILY SHARIFA Stop: 01/25/23 08:59 Last Admin: 12/30/22 08:29 Dose: 1 tab Oxycodone HCl (Oxycodone Hcl Ir 5 Mg Tab (Immediate Release)) 5 - 10 mg PO Q4H PRN PRN Reason: Pain Stop: 01/08/23 19:04 Last Admin: 12/29/22 19:36 Dose: 10 mg Pantoprazole Sodium (Pantoprazole 40 Mg Tab) 40 mg PO DAILY SHARIFA; Protocol Stop: 01/25/23 08:59 Last Admin: 12/30/22 08:30 Dose: 40 mg Sevelamer HCl (Sevelamer Hcl 800 Mg Tablet) 800 mg PO TIDM SHARIFA Stop: 01/24/23 20:59 Last Admin: 12/30/22 07:07 Dose: Not Given Zolpidem Tartrate (Zolpidem Tartrate 5 Mg Tab) 5 mg PO HS SHARIFA Stop: 01/24/23 20:59 Last Admin: 12/29/22 19:36 Dose: 5 mg PG Care Time/CCT Total # of Minutes Spent Total Time Spent with Patient: Total time spent is greater than 50% in coordination of care (as documented) at patient's floor/unit and/or counseling patient: Coding Level of Care Code 93123 SUB INP/OBS CARE 2/35MIN Medical Decision Making Moderate Complexity Diagnoses Open wound of left foot S91.302A Encounter type: initial encounter PAD (peripheral artery disease) I73.9 DM II (diabetes mellitus, type II), controlled E11.9 ESRD (end stage renal disease) on dialysis N18.6; Z99.2 HTN (hypertension) I10 CAD (coronary artery disease) I25.10 Anemia D64.9 Hyperlipidemia E78.5 Hypothyroidism E03.9 DVT prophylaxis Z29.9 Depression F32.A (1) Open wound of left foot Encounter type: initial encounter Qualified Code(s): S91.302A - Unspecified open wound, left foot, initial encounter
[2022-12-30] MEDS ORDERED: ONDANSETRON INJ 2 MG/ML 2 ML VIAL IV PRN (16:10)
[2022-12-30] MEDS ORDERED: ATROPINE SULFATE 0.1 MG/ML 10ML SYR IV PRN (16:10)
[2022-12-30] MEDS ORDERED: ePHEDrine sulfate 50 MG/ML AMP IV PRN (16:10)
[2022-12-30] MEDS ORDERED: fentaNYL citrate PF 100 MCG/2 ML VIAL IV PRN (16:10)
--- NOTE | 2022-12-30 16:13 | Anesthesiology Consultation ---
Date of Service December 30, 2022 Assessment & Plan (1) Encounter for pre-operative examination: Chart Review Chart Review: Acceptable Risk for Surgery and Patient NOT seen in Pre Admission Testing Consults Requested none History Surgery Operation Date: 12/26/22 09:00 Proposed Procedures p Incision and Drainage Left Foot(Left) - Yong Dias DPM, MS Operation Date: 12/30/22 14:20 Proposed Procedures p Left Foot Amputation Transmetatarsal - Yong Dias DPM, MS Height/Weight Height: 5 ft 2 in Weight: 59.2 kg Allergies Allergy/AdvReac Type Severity Reaction Status Date / Time morphine Allergy Severe Hallucinati Unverified 12/25/22 15:17 ng codeine Allergy Intermediate Redness of Unverified 12/25/22 15:17 Skin prednisone Allergy Intermediate Itching Unverified 12/25/22 15:17 Medications Home Medications Medication Instructions Recorded Confirmed Last Taken albuterol sulfate 90 mcg/actuation 1 puff inhalation QID PRN bad cough 11/12/22 12/25/22 Unknown aerosol inhaler allopurinol 100 mg tablet 100 mg PO DAILY 11/12/22 12/25/22 12/25/22 amitriptyline 100 mg tablet 100 mg PO HS 11/12/22 12/25/22 12/24/22 amlodipine 2.5 mg tablet 2.5 mg PO DAILY 11/12/22 12/25/22 12/25/22 ascorbic acid (vitamin C) 500 mg 500 mg PO DAILY 11/12/22 12/25/22 12/25/22 capsule aspirin 81 mg chewable tablet 81 mg PO DAILY 11/12/22 12/25/22 12/25/22 atorvastatin 40 mg tablet (Lipitor) 40 mg PO HS 11/12/22 12/25/22 12/24/22 cholecalciferol (vitamin D3) 50 50 mcg PO DAILY 11/12/22 12/25/22 12/25/22 mcg (2,000 unit) tablet clonidine HCl 0.1 mg tablet 0.1 mg PO DAILY 11/12/22 12/25/22 12/25/22 clopidogrel 75 mg tablet 75 mg PO DAILY 11/12/22 12/25/22 12/25/22 denosumab 60 mg/mL subcutaneous 60 mg subcut Q6M 11/12/22 12/25/22 7 Months Ago syringe (Prolia) ~05/27/22 docusate sodium 100 mg capsule 100 mg PO DAILY PRN Constipation 11/12/22 12/25/22 Unknown (Colace) esomeprazole magnesium 40 mg 40 mg PO DAILY 11/12/22 12/25/22 12/25/22 capsule,delayed release (Nexium) ezetimibe 10 mg tablet 10 mg PO DAILY 11/12/22 12/25/22 12/25/22 furosemide 40 mg tablet (Lasix) 40 mg PO DAILY 11/12/22 12/25/22 12/25/22 isosorbide mononitrate 30 mg 30 mg PO HS 11/12/22 12/25/22 12/24/22 tablet,extended release 24 hr latanoprost 0.005 % eye drops 1 drp ophthalmic (eye) HS 11/12/22 12/25/22 12/24/22 levothyroxine 125 mcg tablet 125 mcg PO QAM 11/12/22 12/25/22 12/25/22 lisinopril 40 mg tablet (Zestril) 40 mg PO DAILY 11/12/22 12/25/22 12/25/22 loratadine 10 mg tablet 10 mg PO DAILY 11/12/22 12/25/22 12/25/22 melatonin 10 mg capsule 10 mg PO HS 11/12/22 12/25/22 12/24/22 metoprolol tartrate 50 mg tablet See Rx Instructions .Route .COMPLEX 11/12/22 12/25/22 12/25/22 nitroglycerin 0.4 mg sublingual See Rx Instructions .Route .COMPLEX 11/12/22 12/25/22 Unknown tablet sevelamer carbonate 800 mg tablet 800 mg PO TID 11/12/22 12/25/22 12/25/22 vit B,C-folic ac 800 mcg-zinc 12.5 1 tab PO DAILY 11/12/22 12/25/22 12/25/22 mg-selen-D3 2,000 unit-vit E tablet (RenaPlex-D) zolpidem 5 mg tablet (Ambien) 5 mg PO HS 11/12/22 12/25/22 12/24/22 oxycodone 5 mg tablet 5 mg PO Q4H #20 tabs 11/22/22 12/25/22 12/25/22 insulin aspart U-100 100 unit/mL 2 sliding scale dose subcut 12/25/22 12/25/22 12/24/22 (3 mL) subcutaneous pen (Novolog .TIDWMEALS FlexPen U-100 Insulin aspart) Active Medications Generic Name Dose Route Start Last Admin Trade Name Freq PRN Reason Stop Dose Admin Acetaminophen 650 mg 12/25/22 19:05 12/27/22 17:23 Acetaminophen 325 Mg Tab PO 01/24/23 19:04 650 mg Q4H PRN Administration pain/fever Allopurinol 100 mg 12/26/22 09:00 12/30/22 08:30 Allopurinol 100 Mg Tab PO 01/25/23 08:59 100 mg DAILY SHARIFA Administration Amitriptyline HCl 100 mg 12/25/22 21:00 12/29/22 19:38 Amitriptyline Hcl 100 Mg Tab PO 01/24/23 20:59 100 mg HS SHARIFA Administration Amlodipine Besylate 2.5 mg 12/26/22 09:00 12/30/22 08:30 Amlodipine Besylate 5 Mg Tab PO 01/25/23 08:59 2.5 mg DAILY SHARIFA Administration Aspirin 81 mg 12/26/22 09:00 12/30/22 07:13 Aspirin 81 Mg Chew PO 01/25/23 08:59 Not Given DAILY SHARIFA Atorvastatin Calcium 40 mg 12/25/22 21:00 12/29/22 19:39 Atorvastatin 40 Mg Tab PO 01/24/23 20:59 40 mg HS SHARIFA Administration Clonidine HCl 0.1 mg 12/26/22 09:00 12/30/22 08:29 Clonidine Hcl 0.1 Mg Tab PO 01/25/23 08:59 0.1 mg DAILY SHARIFA Administration Clopidogrel Bisulfate 75 mg 12/26/22 09:00 12/30/22 07:13 Clopidogrel Bisulfate 75 Mg Tab PO 01/25/23 08:59 Not Given DAILY SHARIFA Furosemide 40 mg 12/26/22 09:00 12/29/22 09:57 Furosemide 40 Mg Tab PO 01/25/23 08:59 Not Given DAILY SHARIFA Heparin Sodium (Porcine) 5,000 units 12/26/22 21:00 12/30/22 07:13 Heparin Sod 5,000 Unit/0.5 Ml Vial SQ 01/25/23 20:59 Not Given Q12 SHARIFA Ampicillin Sodium/Sulbactam 108 mls @ 216 mls/hr 12/28/22 16:00 12/30/22 03:36 Sodium 3,000 mg/ Sodium IV 01/04/23 13:29 Infused Chloride Q12H SHARIFA Infusion Insulin Aspart 0 units 12/26/22 07:30 12/30/22 12:21 Insulin Aspart Per Unit Charge SC 01/25/23 07:29 Not Given ACHS SHARIFA Isosorbide Mononitrate 30 mg 12/25/22 21:00 12/29/22 19:38 Isosorbide [place] Extended Rel 30 Mg Tabcr PO 01/24/23 20:59 30 mg HS SHARIFA Administration Latanoprost 1 drops 12/25/22 21:00 12/29/22 19:39 Latanoprost 0.005% Op Soln 2.5 Ml Btl OP 01/24/23 20:59 1 drops HS SHARIFA Administration Levothyroxine Sodium 125 mcg 12/26/22 06:30 12/30/22 05:29 Levothyroxine Sodium 125 Mcg Tablet PO 01/25/23 06:29 125 mcg DAILYBB SHARIFA Administration Lisinopril 40 mg 12/26/22 09:00 12/30/22 07:14 Lisinopril 40 Mg Tab PO 01/25/23 08:59 Not Given DAILY SHARIFA Loratadine 10 mg 12/26/22 09:00 12/30/22 08:29 Loratadine 10 Mg Tab PO 01/25/23 08:59 10 mg DAILY SHARIFA Administration Metoprolol Tartrate 50 mg 12/26/22 09:00 12/30/22 08:29 Metoprolol Tartrate 50 Mg Tab PO 01/25/23 08:59 50 mg QAM SHARIFA Administration Metoprolol Tartrate 100 mg 12/25/22 21:00 12/29/22 19:37 Metoprolol Tartrate 50 Mg Tab PO 01/24/23 20:59 100 mg HS SHARIFA Administration Multivitamins/Minerals 1 tab 12/26/22 09:00 12/30/22 08:29 Cerovite Adv Formula Tab PO 01/25/23 08:59 1 tab DAILY SHARIFA Administration Oxycodone HCl 5 - 10 mg 12/25/22 19:05 12/29/22 19:36 Oxycodone Hcl Ir 5 Mg Tab (Immediate Release) PO 01/08/23 19:04 10 mg Q4H PRN Administration Pain Pantoprazole Sodium 40 mg 12/26/22 09:00 12/30/22 08:30 Pantoprazole 40 Mg Tab PO 01/25/23 08:59 40 mg DAILY SHARIFA Administration Protocol Sevelamer HCl 800 mg 12/25/22 21:00 12/30/22 12:23 Sevelamer Hcl 800 Mg Tablet PO 01/24/23 20:59 Not Given TIDM SHARIFA Zolpidem Tartrate 5 mg 12/25/22 21:00 12/29/22 19:36 Zolpidem Tartrate 5 Mg Tab PO 01/24/23 20:59 5 mg HS SHARIFA Administration Past Medical History Medical History Anemia CAD (coronary artery disease) CHF (congestive heart failure) DM II (diabetes mellitus, type II), controlled ESRD (end stage renal disease) on dialysis HD --. Follows with Dr. Mckeon HTN (hypertension) Hypothyroidism Osteomyelitis of left foot Tobacco abuse Weakness Past Surgical History Surgical History S/P drug eluting coronary stent placement Past Anesthesia History No Hx of Anesthesia Complications and No Family Hx of Anesthesia Complications History of PONV No Hx of PONV and No Hx of Motion Sickness Social History Smoking Status: Current every day smoker tobacco type: cigarettes Smoking cigarettes per day: 6 Do You Dip or Chew Tobacco: No Hx Alcohol Use: No Hx Substance Use: No substance use type: does not use Physical Exam Vital Signs Last Vital Signs Temp 37.1 C 12/30/22 14:29 Pulse 57 L 12/30/22 14:29 Resp 16 12/30/22 14:29 BP 163/71 H 12/30/22 14:29 Pulse Ox 94 12/30/22 14:29 O2 Del Method Room Air 12/30/22 14:29 O2 Flow Rate 5 12/26/22 10:05 Testing Laboratory Results 12/30/22 07:23 12/30/22 07:23 12/26/22 10:16 Gram Stain - Final Foot,Left Aerobic and Anaerobic Culture - Preliminary Escherichia coli Staphylococcus aureus 12/25/22 15:42 Gram Stain - Final Foot,Left Aerobic and Anaerobic Culture - Final Escherichia coli Staphylococcus aureus 12/25/22 16:06 Aerobic Blood Culture - Preliminary Blood No growth in Aerobic bottle after 48 hours. Anaerobic Blood Culture - Preliminary No growth in Anaerobic bottle after 48 hours. 12/25/22 16:06 Aerobic Blood Culture - Preliminary Blood No growth in Aerobic bottle after 48 hours. Anaerobic Blood Culture - Preliminary No growth in Anaerobic bottle after 48 hours. 12/30/22 12/30/22 12:16 05:51 POC Glucose 132 H 119 H Electrocardiogram Date: 11/12/22 Findings: + NSR @ (@ 61;LVH)
[2022-12-30] MEDS ORDERED: MIDAZOLAM HCL 1 MG/ML 2ML VIAL ONE (16:26)
[2022-12-30] MEDS ORDERED: fentaNYL citrate PF 100 MCG/2 ML VIAL ONE ×2 (16:26→17:16)
[2022-12-30] MEDS ORDERED: PROPOFOL IV EMULSION 10 MG/ML 20 ML VIAL IV ONE ×2 (16:26→17:11)
[2022-12-30] MEDS ORDERED: LIDOCAINE 2% 2 ML VIAL/AMP(20MG/ML) INFIL ONE (16:26)
--- NOTE | 2022-12-30 16:28 | History & Physical Bridge Note ---
Date of Service December 30, 2022 History & Physical Bridge Note I have examined the patient, reviewed the History & Physical and in the interval since the performance of the History & Physical I have noted the following changes of clinical significance: no changes noted
[2022-12-30] MEDS ORDERED: BUPIVACAINE 0.5 % 5 MG/1 ML MPF 30ML VIAL ONE (16:31)
--- NOTE | 2022-12-30 16:33 | Nephrology Progress Note ---
Date of Service December 30, 2022 Assessment & Plan (1) ESRD (end stage renal disease) on dialysis: Plan: ESKD due to diabetic nephropathy. HD MWF via AVF. BP and volume status acceptable. Electrolytes controlled. Next HD tomorrow. Outpatient HD MWF [facility] Ha (3 hours, F-180NR, Qb 400/Qd 500, 2K, 35 HCO3, 137 Na, EDW 58 kg). Medications appropriate for kidney function. Renal diet. Daily fluid restriction 1.5 L. Continue Sevelamer QAC. (2) HTN (hypertension): Plan: Continue lisinopril, clonidine, metoprolol, Imdur, and amlodipine as per home Rx. (3) Anemia: Plan: Epogen 12405 units with HD provided yesterday. Tsat 27 with ferritin >700. IV iron held. (4) Open wound of left foot: Plan: POD #4 s/p I&D and application of wound vac. Unasyn dosed for IHD. MRI reviewed. TMA scheduled for today. For PAD, arteriogram scheduled with Dr. Campbell for tomorrow. Admission and Anticipated Discharge Date Admission Date: December 25, 2022 Subjective No acute events. Jacqui was seen and evaluated this AM. Tolerated HD well yesterday. No fevers or chills. Review of Systems 2 Review of Systems: All systems reviewed & are unremarkable except as noted in HPI & below Physical Exam Constitutional: WD/WN, vitals as above no acute distress Eyes: + anicteric sclerae Neck: normal visual inspection Respiratory: no respiratory distress Auscultation: lungs clear to auscultation bilaterally Cardiovascular: Rate/Rhythm: regular rate and regular rhythm Heart Sounds: normal S1 and normal S2 Extremities: + AV fistula (RT BC AVF with thrill and bruit.); no edema Skin: no rashes, warm and dry Neurologic: no focal motor deficits Psychiatric: Orientation: alert and cooperative Results & Data Vital Signs (Past 12 Hours) Vital Signs Temp Pulse Pulse Resp BP Pulse Ox O2 Del Method 12/30/22 16:14 37 C 63 64 18 167/52 H 95 Room Air 12/30/22 14:29 37.1 C 57 L 16 163/71 H 94 Room Air 12/30/22 07:48 Room Air 12/30/22 07:39 37.3 C 66 16 162/65 H 97 Room Air Laboratory Results Laboratory Results - last 24 hr 12/29/22 12/29/22 12/30/22 17:00 20:39 05:51 WBC RBC Hgb Hct MCV MCH MCHC RDW Std Deviation RDW Coeff of Evette Plt Count MPV Immature Gran % (Auto) Neut % (Auto) Lymph % (Auto) [place] % (Auto) Eos % (Auto) Baso % (Auto) Neut # (Auto) Lymph # (Auto) [place] # (Auto) Eos # (Auto) Baso # (Auto) Immature Gran # (Auto) Sodium Potassium Chloride Carbon Dioxide Anion Gap BUN Creatinine Est Cr Clr Drug Dosing Est GFR ( Amer) Est GFR (Non-Af Amer) BUN/Creatinine Ratio Glucose POC Glucose 168 H 170 H 119 H Calcium Magnesium Iron TIBC Unsaturated IBC Transferrin % Sat Ferritin 12/30/22 12/30/22 12/30/22 07:23 07:23 12:16 WBC 6.50 RBC 2.77 L Hgb 8.8 L Hct 26.9 L MCV 97.1 MCH 31.8 MCHC 32.7 RDW Std Deviation 47.1 H RDW Coeff of Evette 13.2 Plt Count 170 MPV 11.4 Immature Gran % (Auto) 0.3 Neut % (Auto) 66.1 Lymph % (Auto) 22.5 [place] % (Auto) 7.8 Eos % (Auto) 2.8 Baso % (Auto) 0.5 Neut # (Auto) 4.30 Lymph # (Auto) 1.46 [place] # (Auto) 0.51 Eos # (Auto) 0.18 Baso # (Auto) 0.03 Immature Gran # (Auto) 0.02 Sodium 137 Potassium 4.7 Chloride 104 Carbon Dioxide 27 Anion Gap 6 BUN 27 H Creatinine 3.55 H D Est Cr Clr Drug Dosing 13.2 Est GFR ( Amer) 15.2 Est GFR (Non-Af Amer) 13.1 BUN/Creatinine Ratio 7.6 L Glucose 113 H POC Glucose 132 H Calcium 9.2 Magnesium 1.7 Iron 50 TIBC 184 L Unsaturated IBC 134 L Transferrin % Sat 27 Ferritin 795.9 H PG Care Time/CCT Total # of Minutes Spent Total Time Spent with Patient: Total time spent is greater than 50% in coordination of care (as documented) at patient's floor/unit and/or counseling patient: Coding Level of Care Code 99418 SUB INP/OBS CARE MIN Diagnoses ESRD (end stage renal disease) on dialysis N18.6; Z99.2 HTN (hypertension) I10 Anemia D64.9 Open wound of left foot S91.302A Encounter type: initial encounter (4) Open wound of left foot Encounter type: initial encounter Qualified Code(s): S91.302A - Unspecified open wound, left foot, initial encounter
[2022-12-30] MEDS ORDERED: THROMBIN FOR SOLN 20000 UNIT KIT ONE (17:19)
[2022-12-30] MEDS ORDERED: GELATIN SPONGE SZ 100 ONE (17:19)
--- NOTE | 2022-12-30 17:38 | Post Operative Brief Note ---
Immediate Post Op Note v1 Date of Surgery December 30, 2022 Pre & Post Diagnosis Operation Date: 12/30/22 14:20 Pre-Op Diagnosis: Open wound of left foot Post-Op Diagnosis: Open wound of left foot I identified the patient and participated in the time-out.: Yes Procedure Operation Date: 12/30/22 14:20 Actual Procedures p Left Foot Amputation Transmetatarsal(Left) - Yong Dias DPM, MS Surgeon Yong Dias DPM, MS Overlocker none Estimated Blood Loss 20 Findings Consistent with Post-Op Diagnosis Non healing foot wound. Necrotic 4th metatarsal. Specimens 4th metatatarsal left- Microbiology Leftfore foot - Pathology
--- NOTE | 2022-12-30 17:55 | Operative Report ---
Post Operative Report Pre & Post Diagnosis Operation Date: 12/30/22 14:20 Pre-Op Diagnosis: Open wound of left foot Post-Op Diagnosis: Open wound of left foot I identified the patient and participated in the time-out.: Yes Procedure Operation Date: 12/30/22 14:20 Actual Procedures p Left Foot Amputation Transmetatarsal(Left) - Yong Dias DPM, MS Surgeon Yong Dias DPM, MS Production Supervisor Off Shift none Estimated Blood Loss 20 Findings Consistent with Post-Op Diagnosis Non-healing left foot wound Specimens 1.) Metatarsal bone left fourth - microbiology 2.) Left forefoot amputation - Pathology Description of Procedure History of present illness: Patient is a 62 year old female who is seen for treatment of left foot non healing wound and suspected osteomyelitis. Patient is requesting transmetatarsal amputation. She is at severe risk for loss of limb due to non healing TMA site and wishes to proceed despite risks. I discussed transmetatarsal amputation and reviewed surgery. All questions answered. Discussed procedure in detail and postoperative recovery. All potential risks, benefits, complications, alternatives, rehab, potential for incomplete relief of symptoms, need for further surgery, DVT, PE, , persistent pain, swelling, scarring, weakness, neurovascular, wound complications and potential for amputations were discussed with patient. Unwanted outcomes such as, but not limited to were reviewed including under correction, overcorrection, return of deformity, infection. All questions were answered. Patient has decided to proceed with procedure as indicated. Preoperative diagnosis: 1.) Left foot non healing wound 2.) fourth metatarsal osteomyelitis Postoperative diagnosis: Same Name of operation: 1.) Left foot transmetatarsal amputation 2.) Delayed Primary Closure left foot Surgeon Dr. Dias Production Supervisor Off Shift: None Anesthesia: Monitored anesthesia care Hemostasis: Anatomic dissection, Pneumatic calf tourniquet Estimated blood loss: 20cc Procedure in detail: Under mild sedation the patient was brought in the operating room placed on the operating table in supine position. A pneumatic calf tourniquet was then placed about the patient's left calf. Following IV sedation local anesthesia was obtained about the left ankle utilizing 20 cc of 0.5% Marcaine plain. The foot was then prepped scrubbed and draped in usual aseptic manner. An Esmarch bandage was utilized to exsanguinate the patient's left foot and the pneumatic calf tourniquet was then inflated. Attention was then directed to the left foot. A fish mouth incision was created utilizing a sharp, sterile, #15 blade encompassing the forefoot. The incision which was deepened through subcutaneous tissue using sharp blunt dissection. Care was taken to identify and retract all vital neurovascular structures. All bleeders were ligated and cauterized necessary. Once down to the layer of periosteum and bone, a transverse incision was made within the periosteum. A morris elevator was then used to free the soft tissue at the site of the metatarsal neck regions. Once this was performed a sagittal saw was utilized to transversely cut the metatarsals. Once all the metatarsals have been cut, the metatarsal heads were then disarticulated from the surrounding soft tissue with the use of a 15 blade dissecting down through the medial aspect of the first metatarsal capsule including the sesamoids the soft tissue was then reflected from the plantar aspect of the metatarsal heads plantarly. The patient at that point then had the forefoot completely disarticulated and passed off to the back table in order to be sent for pathology. The fourth metatarsal head was removed and sent to microbiology for culture and sensitivities. Attention was now directed back towards the forefoot. There was no gross infectious signs noted at this point. The patient then underwent copious irrigation with the use of 3 L of lactate ringer. All participants in the surgery removed their top layer of gloves and only clean instrumentation was used from here on out. Hemostasis was acquired. Due to infection the wound was left open and Patient will be brought back at a later date for delayed closure of wound once infection resolves. The pneumatic tourniquet was deflated and a prompt hyperemic response was noted to the left foot. Dry sterile dressing was applied consisting of 4x4's, ABD, Kerlix and Wiliam. The Patient tolerated the procedure and anesthesia well. He was transferred to recovery room vital signs stable. After postoperative monitoring the patient will be re admitted to the floor resuming all pre operative orders. I attest to the content of the Intraoperative Record and any orders documented therein. Any exceptions are noted below.
--- NOTE | 2022-12-30 18:04 | Anesthesiology Progress Note ---
Date of Service December 30, 2022 Anesthesia Post Procedure Vital Signs Vital Signs: Temp Pulse Pulse Pulse Resp BP Pulse Ox 12/30/22 17:55 60 12 120/47 L 96 12/30/22 17:45 59 L 12 121/48 L 100 12/30/22 17:36 36.2 C L 58 L 16 104/42 L 100 12/30/22 16:14 37 C 63 64 18 167/52 H 95 12/30/22 14:29 37.1 C 57 L 16 163/71 H 94 12/30/22 07:48 12/30/22 07:39 37.3 C 66 16 162/65 H 97 12/29/22 19:33 36.6 C 63 16 154/82 H 97 O2 Del Method O2 Flow Rate 12/30/22 17:55 Room Air 12/30/22 17:45 Oxymask 5 12/30/22 17:36 Oxymask 5 12/30/22 16:14 Room Air 12/30/22 14:29 Room Air 12/30/22 07:48 Room Air 12/30/22 07:39 Room Air 12/29/22 19:33 Room Air Pain Intensity Left Foot: Pain Intensity: 3 Transfer of Care Handoff Completed per policy Notes Mental Status: alert / awake / arousable and participated in evaluation Patient Amnestic to Procedure: Yes Nausea / Vomiting: adequately controlled Pain: adequately controlled Airway Patency, RR, SpO2: stable & adequate BP & HR: stable & adequate Hydration State: stable & adequate Anesthetic Complications: no major complications apparent and Pt Satisfied with anesthetic care
[2022-12-30] MEDS: oxyCODONE HCL IR 5 MG TAB (IMMEDIATE RELEASE) PO PRN (20:27)
[2022-12-30] MEDS: ATORVASTATIN 40 MG TAB PO SCH (20:30)
[2022-12-30] MEDS: AMITRIPTYLINE HCL 100 MG TAB PO SCH (20:30)
[2022-12-30] MEDS: ISOSORBIDE MONO EXTENDED REL 30 MG TABCR PO SCH (20:31)
[2022-12-30] MEDS: LATANOPROST 0.005% OP SOLN 2.5 ML BTL OP SCH (20:32)
[2022-12-30] MEDS: ZOLPIDEM TARTRATE 5 MG TAB PO SCH (20:34)
--- NOTE | 2022-12-31 01:01 | Vascular Medicine Consultation ---
Date of Consultation December 31, 2022 Assessment & Plan (1) PAD (peripheral artery disease): 2. Left lower extremity ulcer, osteomyelitis 3. End-stage renal disease on HD 4. Type 2 diabetes 5. Coronary artery disease post PCI 6. Hypertension 7. Anemia Patient seen today in the setting of nonhealing left lower extremity ulceration/osteomyelitis. To undergo left TMA later today. Arterial duplex last month suggested only moderate residual left SFA disease but exam and more recent non-invasive vascular testing suggestive of more severe arterial insufficiency. Recommend further evaluation with left lower extremity angiogram. If significant obstructive disease, threatened limb/surgical would could potentially benefit from revascularization. Discussed risks, benefits, alternatives of procedure with patient and her and they are willing to proceed Please keep n.p.o. past midnight. Primary team coordinating dialysis with nephrology.. Thank you for allowing us to participate in the care of this patient. Please contact with any questions. History of Present Illness Attending Physician: Tyesha Weiss, History of Present Illness Mrs. Hudson is a very pleasant 62-year-old woman seen today for lower extremity ulceration in the setting of PAD. Prior medical history remarkable for end-stage renal disease on dialysis, type 2 diabetes, coronary artery disease post prior PCI with WILLIAM hypertension, hypothyroidism, tobacco abuse, GERD. Patient has a history of lower extremity PAD and previously underwent bilateral endovascular intervention at [facility] 05/2022. She with a history of diabetic foot ulcers and is post partial great toe amputation bilaterally. More recently has been dealing with longstanding/nonhealing ulcer involving left fourth/fifth toes complicated by osteomyelitis. Has been following with coming to the wound center. Has undergone multiple resections. Most recently with Dr. Dias 11/2022 with left fourth/fifth ray amputation, repeat debridement 12/26/2022. Scheduled to undergo transmetatarsal amputation today in the setting of MRI finding suggestive of osteo involving left fourth metatarsal. Wound cultures growing E. coli and Staph aureus. Arterial duplex 11/2022right ACIDIZER WATER WELL 50 to 74% (PSV 217), proximal SFA 50 to 74% stenosis (PSV 295). Distal SFA/popliteal/tibial is monophasic bilaterally. LEVAR/TBI 12/29/2022: Left LEVAR 1.12, TBI 0.16 (24 mmHg). Right LEVAR NC Allergies Allergy/AdvReac Type Severity Reaction Status Date / Time morphine Allergy Severe Hallucinati Unverified 12/25/22 15:17 ng codeine Allergy Intermediate Redness of Unverified 12/25/22 15:17 Skin prednisone Allergy Intermediate Itching Unverified 12/25/22 15:17 Home Medications Medication Instructions Recorded Confirmed Type albuterol sulfate 90 mcg/actuation 1 puff inhalation QID PRN bad cough 11/12/22 12/25/22 History aerosol inhaler allopurinol 100 mg tablet 100 mg PO DAILY 11/12/22 12/25/22 History amitriptyline 100 mg tablet 100 mg PO HS 11/12/22 12/25/22 History amlodipine 2.5 mg tablet 2.5 mg PO DAILY 11/12/22 12/25/22 History ascorbic acid (vitamin C) 500 mg 500 mg PO DAILY 11/12/22 12/25/22 History capsule aspirin 81 mg chewable tablet 81 mg PO DAILY 11/12/22 12/25/22 History atorvastatin 40 mg tablet (Lipitor) 40 mg PO HS 11/12/22 12/25/22 History cholecalciferol (vitamin D3) 50 50 mcg PO DAILY 11/12/22 12/25/22 History mcg (2,000 unit) tablet clonidine HCl 0.1 mg tablet 0.1 mg PO DAILY 11/12/22 12/25/22 History clopidogrel 75 mg tablet 75 mg PO DAILY 11/12/22 12/25/22 History denosumab 60 mg/mL subcutaneous 60 mg subcut Q6M 11/12/22 12/25/22 History syringe (Prolia) docusate sodium 100 mg capsule 100 mg PO DAILY PRN Constipation 11/12/22 12/25/22 History (Colace) esomeprazole magnesium 40 mg 40 mg PO DAILY 11/12/22 12/25/22 History capsule,delayed release (Nexium) ezetimibe 10 mg tablet 10 mg PO DAILY 11/12/22 12/25/22 History furosemide 40 mg tablet (Lasix) 40 mg PO DAILY 11/12/22 12/25/22 History isosorbide mononitrate 30 mg 30 mg PO HS 11/12/22 12/25/22 History tablet,extended release 24 hr latanoprost 0.005 % eye drops 1 drp ophthalmic (eye) HS 11/12/22 12/25/22 History levothyroxine 125 mcg tablet 125 mcg PO QAM 11/12/22 12/25/22 History lisinopril 40 mg tablet (Zestril) 40 mg PO DAILY 11/12/22 12/25/22 History loratadine 10 mg tablet 10 mg PO DAILY 11/12/22 12/25/22 History melatonin 10 mg capsule 10 mg PO HS 11/12/22 12/25/22 History metoprolol tartrate 50 mg tablet See Rx Instructions .Route .COMPLEX 11/12/22 12/25/22 History nitroglycerin 0.4 mg sublingual See Rx Instructions .Route .COMPLEX 11/12/22 12/25/22 History tablet sevelamer carbonate 800 mg tablet 800 mg PO TID 11/12/22 12/25/22 History vit B,C-folic ac 800 mcg-zinc 12.5 1 tab PO DAILY 11/12/22 12/25/22 History mg-selen-D3 2,000 unit-vit E tablet (RenaPlex-D) zolpidem 5 mg tablet (Ambien) 5 mg PO HS 11/12/22 12/25/22 History oxycodone 5 mg tablet 5 mg PO Q4H #20 tabs 11/22/22 12/25/22 Rx insulin aspart U-100 100 unit/mL 2 sliding scale dose subcut 12/25/22 12/25/22 History (3 mL) subcutaneous pen (Novolog .TIDWMEALS FlexPen U-100 Insulin aspart) Patient History Medical History Anemia CAD (coronary artery disease) CHF (congestive heart failure) DM II (diabetes mellitus, type II), controlled ESRD (end stage renal disease) on dialysis HD --. Follows with Dr. Mckeon HTN (hypertension) Hypothyroidism Osteomyelitis of left foot Tobacco abuse Weakness Surgical History S/P drug eluting coronary stent placement Social History Smoking Status: Current every day smoker Cigarettes Per Day: 6; Second Hand Exposure: No; Do You Dip or Chew Tobacco: No; Tobacco Cessation Education Requested by Patient: Yes Hx Alcohol Use: No Hx Substance Use: No Preferred Language: Slovak Communication Ability: Effective Prosthetic Aide Required: No Beliefs That Will Affect Care: None Current Living Situation: Family Other Information That Helps Us Care for You: No Feels Safe at Home: Yes Safety Concerns: Feels Safe At This Time Assistive Devices: Walker Review of Systems Review of Systems: All systems reviewed & are unremarkable except as noted in HPI & below Physical Exam Physical Exam: General: Comfortable, no acute distress Eyes: Sclerae anicteric Lungs: Clear to auscultation bilaterally Cardiac: Regular rate and rhythm, no murmurs Abdomen: Soft, nontender Neuro: Nonfocal Psych: Alert orient x3, normal affect and mood Extremities/Vascular: -- Right brachiocephalic fistula with thrill Diminished radial pulses bilaterally -- 1+ femoral bilaterally 2+ popliteal pulses bilateral -- Nonpalpable DP pulses bilaterally. 1+ PT pulses bilaterally right greater than left. Toes pale with sluggish capillary refill -- No edema -- Left lateral foot wound dressed, no surrounding erythema Results & Data Vital Signs (Past 12 Hours) Vital Signs Temp Pulse Pulse Pulse Resp BP Pulse Ox 12/30/22 20:10 12/30/22 21:40 98.2 F 70 17 144/60 H 96 12/30/22 20:22 98.1 F 64 18 138/68 96 12/30/22 19:29 98.1 F 60 17 148/65 H 95 12/30/22 18:50 98.1 F 62 16 164/71 H 97 12/30/22 17:55 60 12 120/47 L 96 12/30/22 18:06 98.2 F 60 15 123/76 96 12/30/22 17:45 59 L 12 121/48 L 100 12/30/22 17:36 97.2 F L 58 L 16 104/42 L 100 12/30/22 16:14 98.6 F 63 64 18 167/52 H 95 12/30/22 14:29 98.8 F 57 L 16 163/71 H 94 O2 Del Method O2 Flow Rate 12/30/22 20:10 Room Air 12/30/22 21:40 Room Air 12/30/22 20:22 Room Air 12/30/22 19:29 Room Air 12/30/22 18:50 Room Air 12/30/22 17:55 Room Air 12/30/22 18:06 Room Air 12/30/22 17:45 Oxymask 5 12/30/22 17:36 Oxymask 5 12/30/22 16:14 Room Air 12/30/22 14:29 Room Air PG Care Time/CCT Total # of Minutes Spent Total Time Spent with Patient: Total time spent is greater than 50% in coordination of care (as documented) at patient's floor/unit and/or counseling patient: Coding Level of Care Code 19066 INT INP/OBS CARE 75MIN Diagnoses PAD (peripheral artery disease) I73.9
[2022-12-31] MEDS: oxyCODONE HCL IR 5 MG TAB (IMMEDIATE RELEASE) PO PRN ×4 (02:03→21:24)
[2022-12-31] MEDS: AMPICILLIN/SULBACTAM SOD 3,000 MG in 0.9 % SODIUM CHLORIDE 100 ML IV SCH ×2 (04:17→21:45)
[2022-12-31] MEDS: LEVOTHYROXINE SODIUM 125 MCG TABLET PO SCH (06:14)
[2022-12-31] MEDS: INSULIN ASPART PER UNIT CHARGE SC SCH ×4 (08:04→21:33)
[2022-12-31] MEDS: SEVELAMER HCL 800 MG TABLET PO SCH ×3 (08:05→16:53)
[2022-12-31 08:26] LABS: Hematocrit (blood only) 24.3 % (37.0-47.0); Mean Corpuscular Hemoglobin 31.5 pg (25.0-34.0); Mean Corpuscular Hgb Conc 32.9 g/dL (32.0-36.0); Mean Corpuscular Volume 95.7 fL (80.0-100.0); Platelet Count 174 K/uL (130-400); RDW Coefficient of Variation 13.3 % (11.5-14.5); RDW Standard Deviation 46.6 fL (36.4-46.3); Red Blood Count 2.54 M/uL (4.20-5.40); White Blood Count 6.22 K/ul (4.8-10.8)
[2022-12-31 08:47] LABS: Albumin Level 2.7 gm/dl (3.4-5.0); BUN Creatinine Ratio 6.9 (10-20); Calcium 9.4 mg/dl (8.6-10.3); Creatinine Clr Calc Pharmacy 9.5 ml/min; Est GFR (African American) 10.2 ml/min; Est GFR (Non-African American) 8.8 ml/min; Phosphorus 4.1 mg/dl (2.5-4.9)
--- NOTE | 2022-12-31 08:57 | Hospitalist Progress Note ---
Date of Service December 31, 2022 Assessment & Plan (1) Open wound of left foot: Plan: Acute wound infection of left foot complicated by diabetes, PAD, and ESRD. - Cultures from 26 December obtained in OR and 25 December obtained on admission - E. COLI and MSSA - Currently on day #4 of Unasyn - Renally dosed and scheduled appropriately following dialysis - Completed 2 days of Cefepime and Vancomycin prior - Remains afebrile, with normal WBC count - S/p TMA by orthopedics on 12/30 - S/p angio with balloon/stenting to left proximal/mid SFA disease, also noted to have small diffuse disease in pedal vessels - Continue wound care, case discussed with Dr. Campbell 12/31 (2) PAD (peripheral artery disease): Plan: Chronic- review of chart implies that patient did have some intervention to BLE for her PAD at [facility]- no outside records received or available for review at this time LEVAR completed JAN 02 - s/p angio as above - Continue ASA/Plavix (3) DM II (diabetes mellitus, type II), controlled: Plan: Chronic- controlled currently with HGBa1c 5.6% in November 2022 Carb consistent diet Novolog SSI BSGs controlled (4) ESRD (end stage renal disease) on dialysis: Plan: Chronic- she has AV fistula in right bicep - MWF dialysis - Holding Lasix - Daily BMP - Continue sevelamer - Appreciate Nephrology recommendations (5) HTN (hypertension): Plan: Chronic/Stable. - Continue current medical plan with amlodipine, clonidine, Imdur, lisinopril, and metoprolol (6) CAD (coronary artery disease): Plan: Chronic stable- without chest pain or symptoms -follows with [facility] -cont asa, Plavix, BB, statin, Imdur. (7) Anemia: Plan: Chronic- AOCD 2nd to ESRD. - Iron studies sent by [facility]- FE 50, TIBC low-184, Unsat IBC L-134, Ferritin H- 795 - defer Fe management to nephrology. - HGB stable at 8.0 (8) Hyperlipidemia: Plan: Chronic cont statin (9) Hypothyroidism: Plan: Chronic TSH in 11/2022 was normal limits cont Synthroid (10) DVT prophylaxis: Plan: heparin 5000 BID (11) Depression: Plan: Patient voices no concerns of depression or suicide ideations at this time - continue to follow her response and feelings - feels improved today and better rested Plan PT and OT for post-op Admission and Anticipated Discharge Date Admission Date: December 25, 2022 Subjective No acute events overnight. Seen s/p angio today, doing well, no pain reported, no SOB or chest pain, nausea. Review of Systems Review of Systems: All systems reviewed & are unremarkable except as noted in Subjective Physical Exam Constitutional: WD/WN, vitals as above Gastrointestinal (Abdomen): normal bowel sounds, soft, nontender, no hepatosplenomegaly Skin: no rashes, warm and dry Dressing intact to LLE Psychiatric: A+Ox3, euthymic affect Results & Data Results & Data Vital Signs (Past 12 Hours) Vital Signs Temp Pulse Resp BP Pulse Ox O2 Del Method 12/31/22 08:15 36.7 C 64 16 168/65 H 99 Room Air 12/31/22 03:17 36.7 C 61 17 166/71 H 96 Room Air 12/30/22 21:40 36.8 C 70 17 144/60 H 96 Room Air PG Care Time/CCT Total # of Minutes Spent Total Time Spent with Patient: Total time spent is greater than 50% in coordination of care (as documented) at patient's floor/unit and/or counseling patient: Coding Level of Care Code 10936 SUB INP/OBS CARE 3/50MIN Diagnoses Open wound of left foot S91.302A Encounter type: initial encounter PAD (peripheral artery disease) I73.9 DM II (diabetes mellitus, type II), controlled E11.9 ESRD (end stage renal disease) on dialysis N18.6; Z99.2 HTN (hypertension) I10 CAD (coronary artery disease) I25.10 Anemia D64.9 Hyperlipidemia E78.5 Hypothyroidism E03.9 DVT prophylaxis Z29.9 Depression F32.A (1) Open wound of left foot Encounter type: initial encounter Qualified Code(s): S91.302A - Unspecified open wound, left foot, initial encounter
[2022-12-31] MEDS: METOPROLOL TARTRATE 50 MG TAB PO SCH ×2 (10:00→21:30)
[2022-12-31] MEDS: CEROVITE ADV FORMULA TAB PO SCH (10:00)
[2022-12-31] MEDS: PANTOprazole 40 MG TAB PO SCH (10:00)
[2022-12-31] MEDS: amLODIPine BESYLATE 5 MG TAB PO SCH (10:00)
[2022-12-31] MEDS ORDERED: IRON SUCROSE 100 MG in SYRINGE 0 ML IV SCH (10:00)
[2022-12-31] MEDS: allopurinoL 100 MG TAB PO SCH (10:00)
[2022-12-31] MEDS ORDERED: EPOETIN ALFA 20,000 UNITS/ML VIAL IV SCH (10:00)
[2022-12-31] MEDS: cloNIDine HCL 0.1 MG TAB PO SCH (10:01)
[2022-12-31] MEDS: CLOPIDOGREL BISULFATE 75 MG TAB PO SCH (10:01)
[2022-12-31] MEDS: lisinopril 40 MG TAB PO SCH (10:01)
[2022-12-31] MEDS: HEPARIN SOD 5,000 UNIT/0.5 ML VIAL SQ SCH ×2 (10:01→21:28)
[2022-12-31] MEDS: ASPIRIN 81 MG CHEW PO SCH (10:01)
[2022-12-31] MEDS: LORATADINE 10 MG TAB PO SCH (10:01)
[2022-12-31] MEDS: FUROSEMIDE 40 MG TAB PO SCH (11:34)
[2022-12-31] MEDS ORDERED: fentaNYL citrate PF 100 MCG/2 ML VIAL ONE (13:34)
[2022-12-31] MEDS ORDERED: HEPARIN (PORCINE) 1000 UNIT/ML 10 ML (CATH LAB USE ONLY) ONE (13:34)
[2022-12-31] MEDS ORDERED: MIDAZOLAM HCL 5 MG/ML 1 ML VIAL ONE (13:34)
[2022-12-31] MEDS ORDERED: LIDOCAINE 1% LOCAL 20 ML VIAL ONE (13:40)
[2022-12-31] MEDS ORDERED: niCARdipine HCL INJ 2.5 MG/ML 10 ML AMP ONE (13:51)
[2022-12-31] MEDS ORDERED: NITROGLYCERIN/D5W 100MCG/ML 20ML SYR ONE (13:51)
--- NOTE | 2022-12-31 16:29 | Pre Anesthesia Assessment ---
Date of Service December 31, 2022 Pre Sedation Assessment Vital Signs Temp Pulse Pulse Pulse Resp BP Pulse Ox 12/31/22 15:45 58 L 16 164/50 H 94 12/31/22 15:30 59 L 16 173/81 H 95 12/31/22 13:28 64 18 174/54 H 96 12/31/22 10:50 12/31/22 10:18 12/31/22 08:15 98.1 F 64 16 168/65 H 99 12/31/22 03:17 98.1 F 61 17 166/71 H 96 12/30/22 20:10 12/30/22 21:40 98.2 F 70 17 144/60 H 96 12/30/22 20:22 98.1 F 64 18 138/68 96 12/30/22 19:29 98.1 F 60 17 148/65 H 95 12/30/22 18:50 98.1 F 62 16 164/71 H 97 12/30/22 17:55 60 12 120/47 L 96 12/30/22 18:06 98.2 F 60 15 123/76 96 12/30/22 17:45 59 L 12 121/48 L 100 12/30/22 17:36 97.2 F L 58 L 16 104/42 L 100 Pulse Ox O2 Del Method O2 Flow Rate 12/31/22 15:45 Room Air 12/31/22 15:30 Room Air 12/31/22 13:28 Room Air 12/31/22 10:50 99 12/31/22 10:18 Room Air 12/31/22 08:15 Room Air 12/31/22 03:17 Room Air 12/30/22 20:10 Room Air 12/30/22 21:40 Room Air 12/30/22 20:22 Room Air 12/30/22 19:29 Room Air 12/30/22 18:50 Room Air 12/30/22 17:55 Room Air 12/30/22 18:06 Room Air 12/30/22 17:45 Oxymask 5 12/30/22 17:36 Oxymask 5 Cardiovascular RRR, no murmur, no edema Respiratory normal respiratory effort, lungs clear to auscultation Pre-Sedation Airway Assessment Smoking Status: Current every day smoker Hx Sleep Apnea: No Hx Difficult Intubation: No Short, Thick Neck: No Thyromental Distance: < 3.5 Finger Breadths Oral Cavity: + Dental Abnormalities Mallampati Class: II ASA: ASA3 NPO Status Date of Last Intake of Fluids: 12/30/22 Time of Last Intake of Fluids: 22:00 Date of Last Intake of Solid Food: 12/30/22 Time of Last Intake of Solid Foods: 22:00 Procedure Planning Contraindications for Sedation: none Current Medications Reviewed: Yes Notes The planned sedation has been discussed with the patient. Informed Consent was obtained. I have identified the patient, determined the appropriateness of sedation and have assessed the patient immediately prior to the procedure. All medicine(s) and interventions are by my order.
--- NOTE | 2022-12-31 16:30 | Post Anesthesia Assessment ---
Date of Service December 31, 2022 Post Sedation Assessment Vital Signs Temp Pulse Pulse Pulse Resp BP Pulse Ox 12/31/22 15:45 58 L 16 164/50 H 94 12/31/22 15:30 59 L 16 173/81 H 95 12/31/22 13:28 64 18 174/54 H 96 12/31/22 10:50 12/31/22 10:18 12/31/22 08:15 98.1 F 64 16 168/65 H 99 12/31/22 03:17 98.1 F 61 17 166/71 H 96 12/30/22 20:10 12/30/22 21:40 98.2 F 70 17 144/60 H 96 12/30/22 20:22 98.1 F 64 18 138/68 96 12/30/22 19:29 98.1 F 60 17 148/65 H 95 12/30/22 18:50 98.1 F 62 16 164/71 H 97 12/30/22 17:55 60 12 120/47 L 96 12/30/22 18:06 98.2 F 60 15 123/76 96 12/30/22 17:45 59 L 12 121/48 L 100 12/30/22 17:36 97.2 F L 58 L 16 104/42 L 100 Pulse Ox O2 Del Method O2 Flow Rate 12/31/22 15:45 Room Air 12/31/22 15:30 Room Air 12/31/22 13:28 Room Air 12/31/22 10:50 99 12/31/22 10:18 Room Air 12/31/22 08:15 Room Air 12/31/22 03:17 Room Air 12/30/22 20:10 Room Air 12/30/22 21:40 Room Air 12/30/22 20:22 Room Air 12/30/22 19:29 Room Air 12/30/22 18:50 Room Air 12/30/22 17:55 Room Air 12/30/22 18:06 Room Air 12/30/22 17:45 Oxymask 5 12/30/22 17:36 Oxymask 5 Recovery Score Activity: Moves 4 extremities Respiration: Deep Breath/Cough Circulation: +/-20% PreAnes Value Consciousness: Fully Awake Oxygen Saturation: > 92% On Room Air Post Anesthesia Score: 10 Discharge Sedation Level of Care: Fast Track Phase II Post Sedation Plan On clinical assessment, the patient appears to have tolerated the sedation without complications. Patient is recovering as anticipated. Patient will continue to be monitored by nursing and may be discharged when sedation discharge criteria are met per below protocol. Upon Completions of procedure up to 15 minutes continue every 5 minute vital signs and the P.A.R. score; then discharge to a Phase I or Fast Track to Phase II per the following guidelines: * Discharge Patient to appropriate Phase II area if PAR is 8 or greater or return to pre- procedure baseline. The post - procedure orders will be as directed. * If PAR score is less than 8 or not return to pre-procedure baseline then patient will follow Phase I monitoring till PAR is reached for Phase II. The Phase I may be done in procedure room or may call to secure a Phase I area. * If naloxone or flumazenil are used for reversal, hold in Phase I for continued monitoring from when last reversal dose was given for a minimum of 60 minutes or longer pending the nurse and/or physician discretion of patient condition before discharge to Phase II. Please call the Sedation Physician to re-evaluate and complete post-note for discharge to Phase II area. Do NOT discharge from procedure sedation or Phase 1 until post- sedation evaluation note is complete by procedure /sedation MD Sedation Discharge Instructions to be given to the patient at discharge to home.
--- NOTE | 2022-12-31 17:12 | Endovascular Procedure Note ---
[facility] Endovascular Procedure Rpt Pre & Post Diagnosis Peripheral arterial disease I identified the patient and participated in the time-out.: Yes Procedure Operation Date: 12/31/22 12:00 Actual Procedures p Angio Extremity Unilateral - Mitul Campbell MD p Fem Pop Stent Balloon - Mitul Campbell MD s Placement Art Occlusive Device - Mitul Campbell MD Surgeon Alexsander Campbell MD Electronic Engineering Technician none Estimated Blood Loss 20 Findings Consistent with Post-Op Diagnosis Right lower extremity-- -Common iliacostial/proximal stent patent -External iliacwidely patent -CFA50% calcified, mid stenosis just above high bifurcation stenosis Left lower extremity-- -Common iliac ostial to mid external iliac stents widely patent -Internal iliac small, diffuse disease -EXERCISE RIDER, profunda widely patent -SFA 30% ostial, 70% proximal stenosis, 60% earlymid focal stenosis, distal SFA stent patent with mild in-stent restenosis -Popliteal mild to moderate diffuse disease up to 40% mid segment stenosis -JACINDA patent, distal vessel very small with focal 80% stenosis at the ankle -MISSION WORKER 100% occluded in mid segment -Peroneal small vessel, patent to the ankle. -DPA very small vessel, diffusely diseased with limited branches to midfoot. Medial/lateral plantar arteries occluded Anesthesia Type RN Sedation Radiation Exposure (mGv) Radiation (mGy): 130 Contrast Contrast: 55 Complications none Disposition Accompanied Patient To Recovery: Yes Disposition: Building Equipment Operator Holding Description of Procedure Right EXERCISE RIDER obtained under ultrasound guidance, short 5Fr sheath placed Up and over and proximal left lower extremity angiogram performed with RIM catheter. Selective angiography with quick cross catheter placed in SFA. Pullback gradient across mid/proximal SFA >50 mmHg 5 Fr 45 cm destination sheath placed from right EXERCISE RIDER to left EXERCISE RIDER. Proximal/mid SFA disease crossed with glide advantage wire and quick cross support catheter. Angioplasty of proximal/mid SFA with 4.0 balloon Proximal to mid SFA treated with 4.0 x 150 Lutonix drug-eluting balloon Residual proximal SFA dissection partially flow-limiting Proximal SFA stented with 5.0 x 80 mm Bard self-expanding stent Post procedure good angiographic result, no evidence of dissection and two- vessel runoff down to foot Contrast used: 55 Moderate sedation: [id number] Access closure: Mynx Summary: 1. Left lower extremity --widely patent common/external iliac stents, 70% proximal/mid SFA disease (gradient >50 mmHg), patent distal SFA stent with mild ISR. 40% mid popliteal. Two-vessel runoff to the ankle (occluded MISSION WORKER). Very small diseased distal JACINDA/DPA. 2. Right lower extremity --widely patent common iliac stent, 50% calcified mid EXERCISE RIDER. 3. Successful angioplasty proximal/mid left SFA with drug-eluting balloon (4.0 x 150 Lutonix) and stenting of proximal SFA (5.0 x 80). Recommendations: Continue DAPT extended DAPT with ASA/Clopidogrel. Follow-up non-invasive vascular testing in 2 weeks. I attest to the content of the Intraoperative Record and any orders documented therein. Any exceptions are noted below. Vascular Charges Angiography/Venography Procedure 1: Angiography/Venography charges: [id number] Initial 3rd order or selective abd, pelvic, or LE branch Lower Extremity Interventions Procedure 1: Lower Extremity Intervention charges: [id number] Stent placement(s), femoral, popliteal artery(s), unilateral Additional Services Procedure 1: Additional Services Charges: 90711 Ultrasound guidance - vascular access Procedure 2: Additional Services Charges: 58563 Moderate sedation initial 15 min Procedure 3: Additional Services Charges: 34360 Moderate sedation, each additional 15 min
--- NOTE | 2022-12-31 17:16 | Vascular Medicine ProgressNote ---
Date of Service December 31, 2022 Assessment & Plan (1) PAD (peripheral artery disease): Plan: 2. Left lower extremity ulcer, osteomyelitis 3. End-stage renal disease on HD 4. Type 2 diabetes 5. Coronary artery disease post PCI 6. Hypertension 7. Anemia Patient underwent successful endovascular invention to flow-limiting left proximal/mid SFA disease. Has very small, diffusely diseased pedal vessels but feel post procedure arterial perfusion should be adequate for surgical wound healing. Continue long-term aspirin, clopidogrel. Repeat noninvasive vascular testing as an outpatient in 2 weeks. Admission and Anticipated Discharge Date Admission Date: December 25, 2022 Subjective Underwent left lower extremity angiogram with SFA angioplasty/stenting. Procedure uncomplicated. Review of Systems Review of Systems: Unobtainable due to reduced consciousness Physical Exam Physical Exam: General: Post procedure sleepy Eyes: Sclerae anicteric Lungs: Clear to auscultation bilaterally Cardiac: Regular rate and rhythm, no murmurs Abdomen: Soft, nontender Neuro: Nonfocal Psych: Sleeping Extremities/Vascular: -- Right brachiocephalic fistula with thrill Diminished radial pulses bilaterally -- 1+ femoral bilaterally 2+ popliteal pulses bilateral -- Right DATA INTEGRATION ANALYST with no ecchymosis/hematoma. Left forefoot surgical dressing in place -- No edema Results & Data Vital Signs (Past 12 Hours) Vital Signs Temp Pulse Pulse Pulse Pulse Resp BP 12/31/22 16:30 60 171/71 H 12/31/22 16:15 60 171/71 H 12/31/22 16:30 12/31/22 16:06 58 L 174/67 H 12/31/22 15:58 97.7 F 58 L 12/31/22 15:45 58 L 16 12/31/22 15:30 59 L 16 12/31/22 13:28 64 18 12/31/22 10:50 12/31/22 10:18 12/31/22 08:15 98.1 F 64 16 BP Pulse Ox Pulse Ox O2 Del Method 12/31/22 16:30 12/31/22 16:15 12/31/22 16:30 Room Air 12/31/22 16:06 12/31/22 15:58 12/31/22 15:45 164/50 H 94 Room Air 12/31/22 15:30 173/81 H 95 Room Air 12/31/22 13:28 174/54 H 96 Room Air 12/31/22 10:50 99 12/31/22 10:18 Room Air 12/31/22 08:15 168/65 H 99 Room Air PG Care Time/CCT Total # of Minutes Spent Total Time Spent with Patient: Total time spent is greater than 50% in coordination of care (as documented) at patient's floor/unit and/or counseling patient: Coding Level of Care Code 70174 SUB INP/OBS CARE 3/50MIN Diagnoses PAD (peripheral artery disease) I73.9
--- NOTE | 2022-12-31 17:17 | Nephrology Progress Note ---
Date of Service December 31, 2022 Assessment & Plan (1) ESRD (end stage renal disease) on dialysis: Plan: ESKD due to diabetic nephropathy. HD MWF via AVF. Orders for HD today entered into the EHR an reviewed with clinic cma. Outpatient HD MWF [facility] Ha (3 hours, F-180NR, Qb 400/Qd 500, 2K, 35 HCO3, 137 Na, EDW 58 kg). Medications appropriate for kidney function. Renal diet. Daily fluid restriction 1.5 L. Continue Sevelamer QAC. (2) HTN (hypertension): Plan: Continue lisinopril, clonidine, metoprolol, Imdur, and amlodipine as per home Rx. (3) Anemia: Plan: Epogen 67735 units with HD provided 12/29. (4) Open wound of left foot: Plan: POD #5 s/p I&D and application of wound vac. POD#1 s/p TMA POD#0 s/p angioplasty left SFA with balloon and WILLIAM. Unasyn dosed for IHD. Admission and Anticipated Discharge Date Admission Date: December 25, 2022 Subjective No acute events. Jacqui was seen and evaluated on HD this afternoon. s/p angiography with stent. She is resting comfortably following pain medications. BP acceptable. Review of Systems Review of Systems: All systems reviewed & are unremarkable except as noted in HPI & below Physical Exam Constitutional: WD/WN, vitals as above + frail appearing; no acute distress Eyes: + anicteric sclerae Neck: normal visual inspection Respiratory: no respiratory distress Auscultation: lungs clear to auscultation bilaterally Cardiovascular: Rate/Rhythm: regular rate and regular rhythm Heart Sounds: normal S1 and normal S2 Extremities: + AV fistula (RT BC AVF with thrill and bruit.); no edema Skin: no rashes, warm and dry Neurologic: no focal motor deficits Psychiatric: Orientation: alert and cooperative Results & Data Vital Signs (Past 12 Hours) Vital Signs Temp Pulse Pulse Pulse Pulse Resp BP 12/31/22 16:30 60 171/71 H 12/31/22 16:15 60 171/71 H 12/31/22 16:30 12/31/22 16:06 58 L 174/67 H 12/31/22 15:58 36.5 C 58 L 12/31/22 15:45 58 L 16 07/21/23 15:30 59 L 16 12/31/22 13:28 64 18 12/31/22 10:50 12/31/22 10:18 12/31/22 08:15 36.7 C 64 16 BP Pulse Ox Pulse Ox O2 Del Method 12/31/22 16:30 12/31/22 16:15 12/31/22 16:30 Room Air 12/31/22 16:06 12/31/22 15:58 12/31/22 15:45 164/50 H 94 Room Air 12/31/22 15:30 173/81 H 95 Room Air 12/31/22 13:28 174/54 H 96 Room Air 12/31/22 10:50 99 12/31/22 10:18 Room Air 12/31/22 08:15 168/65 H 99 Room Air Laboratory Results Laboratory Results - last 24 hr 12/30/22 12/30/22 12/30/22 17:39 18:23 21:35 WBC RBC Hgb Hct MCV MCH MCHC RDW Std Deviation RDW Coeff of Evette Plt Count MPV Activ Coag Time Kaolin Sodium Potassium Chloride Carbon Dioxide Anion Gap BUN Creatinine Est Cr Clr Drug Dosing Est GFR ( Amer) Est GFR (Non-Af Amer) BUN/Creatinine Ratio Glucose POC Glucose 98 97 127 H Calcium Phosphorus Albumin 12/31/22 12/31/22 12/31/22 07:21 08:04 08:04 WBC 6.22 RBC 2.54 L Hgb 8.0 L Hct 24.3 L MCV 95.7 MCH 31.5 MCHC 32.9 RDW Std Deviation 46.6 H RDW Coeff of Evette 13.3 Plt Count 174 MPV 11.0 Activ Coag Time Kaolin Sodium 135 L Potassium 5.0 Chloride 104 Carbon Dioxide 24 Anion Gap 7 BUN 34 H Creatinine 4.94 H* D Est Cr Clr Drug Dosing 9.5 Est GFR ( Amer) 10.2 Est GFR (Non-Af Amer) 8.8 BUN/Creatinine Ratio 6.9 L Glucose 97 POC Glucose 112 H Calcium 9.4 Phosphorus 4.1 Albumin 2.7 L 12/31/22 12/31/22 12/31/22 11:51 15:04 16:27 WBC RBC Hgb Hct MCV MCH MCHC RDW Std Deviation RDW Coeff of Evette Plt Count MPV Activ Coag Time Kaolin 293 H Sodium Potassium Chloride Carbon Dioxide Anion Gap BUN Creatinine Est Cr Clr Drug Dosing Est GFR ( Amer) Est GFR (Non-Af Amer) BUN/Creatinine Ratio Glucose POC Glucose 172 H 112 H Calcium Phosphorus Albumin PG Care Time/CCT Total # of Minutes Spent Total Time Spent with Patient: Total time spent is greater than 50% in coordination of care (as documented) at patient's floor/unit and/or counseling patient: Coding Level of Care Code 87290 SUB INP/OBS CARE 3/50MIN Diagnoses ESRD (end stage renal disease) on dialysis N18.6; Z99.2 HTN (hypertension) I10 Anemia D64.9 Open wound of left foot S91.302A Encounter type: initial encounter (4) Open wound of left foot Encounter type: initial encounter Qualified Code(s): S91.302A - Unspecified open wound, left foot, initial encounter
[2022-12-31] MEDS: ZOLPIDEM TARTRATE 5 MG TAB PO SCH (21:26)
[2022-12-31] MEDS: AMITRIPTYLINE HCL 100 MG TAB PO SCH (21:29)
[2022-12-31] MEDS: ATORVASTATIN 40 MG TAB PO SCH (21:30)
[2022-12-31] MEDS: ISOSORBIDE MONO EXTENDED REL 30 MG TABCR PO SCH (21:30)
[2022-12-31] MEDS: LATANOPROST 0.005% OP SOLN 2.5 ML BTL OP SCH (21:33)
[2023-01-01] MEDS ORDERED: hydrALAZINE HCL 20 MG/ML VIAL IV STA (00:14)
[2023-01-01] MEDS ORDERED: Nursing to Pharmacy Communication SCH (04:15)
[2023-01-01] MEDS: oxyCODONE HCL IR 5 MG TAB (IMMEDIATE RELEASE) PO PRN ×4 (04:21→21:55)
[2023-01-01] MEDS: LEVOTHYROXINE SODIUM 125 MCG TABLET PO SCH (04:22)
[2023-01-01] MEDS: ACETAMINOPHEN 325 MG TAB PO PRN ×2 (04:22→21:54)
--- NOTE | 2023-01-01 06:23 | Orthopedic Progress Note ---
Date of Service December 31, 2022 Assessment & Plan (1) Open wound of left foot: Plan: Patient seen, evaluated and treated. Patient status post Day #1 TMA left foot DOS: 12/30/22. Dressing change with out incident. Patient non weight bearing left foot. Reviewed recent delayed primary closure scheduled for 01/02/23. I have discussed procedure in detail as well as postoperative recovery. All potential risks, benefits, complications, alternatives, rehab, potential for incomplete relief of symptoms, need for further surgery, DVT, PE, , persistent pain, swelling, scarring, weakness, neurovascular, wound complications and potential for amputations were discussed with patient. Unwanted outcomes such as, but not limited to were reviewed including under correction, overcorrection, return of deformity, infection. All questions were answered. Patient has decided to proceed with procedure as indicated. Admission and Anticipated Discharge Date Admission Date: December 25, 2022 Subjective Patient seen at bedside. Patient status post Day #1 TMA left foot DOS: 12/30/22. Dressing is clean dry and intact. Review of Systems Review of Systems: All systems reviewed & are unremarkable except as noted in HPI & below Physical Exam Constitutional: + frail appearing, cooperative and comfortable Eyes: normal visual todd by confrontation Respiratory: normal respiratory effort Cardiovascular: Rate/Rhythm: regular rate and regular rhythm Musculoskeletal: Extremities: + foot abnormality (TMA amputation) Left Skin: + wound (Left foot) Neurologic: moves all extremities (Absent epicritic sensation ) Psychiatric: Orientation: alert and oriented x 3 Results & Data Vital Signs (Past 12 Hours) Vital Signs Temp Pulse Pulse Pulse Pulse Resp BP 12/31/22 22:30 71 01/01/23 03:06 37.2 C 77 20 01/01/23 01:49 78 16 01/01/23 01:00 73 16 01/01/23 00:00 12/31/22 21:00 12/31/22 23:22 36.7 C 70 16 12/31/22 20:02 36.8 C 74 17 12/31/22 19:32 36.8 C 69 12/31/22 18:45 65 137/53 L 12/31/22 18:30 64 144/53 H BP Pulse Ox O2 Del Method 12/31/22 22:30 01/01/23 03:06 158/67 H 98 Room Air 01/01/23 01:49 157/61 H 01/01/23 01:00 169/67 H 93 Room Air 01/01/23 00:00 200/65 H 12/31/22 21:00 Room Air 12/31/22 23:22 185/65 H 98 Room Air 12/31/22 20:02 181/67 H 95 Room Air 12/31/22 19:32 170/57 H 12/31/22 18:45 12/31/22 18:30 (1) Open wound of left foot Encounter type: initial encounter Qualified Code(s): S91.302A - Unspecified open wound, left foot, initial encounter
[2023-01-01 07:34] LABS: Hematocrit (blood only) 26.1 % (37.0-47.0); Hemoglobin 8.5 g/dl (12.0-16.0); Mean Corpuscular Hemoglobin 31.6 pg (25.0-34.0); Mean Corpuscular Hgb Conc 32.6 g/dL (32.0-36.0); Mean Platelet Volume 11.4 fL (9.4-12.4); Nucleated RBC # (auto) 0.02 K/uL (0-0.12); Nucleated RBC % (auto) 0.3 %; Platelet Count 181 K/uL (130-400); RDW Coefficient of Variation 13.2 % (11.5-14.5); RDW Standard Deviation 47.4 fL (36.4-46.3); Red Blood Count 2.69 M/uL (4.20-5.40); White Blood Count 6.68 K/ul (4.8-10.8)
--- NOTE | 2023-01-01 07:35 | Hospitalist Progress Note ---
Date of Service January 01, 2023 Assessment & Plan (1) Open wound of left foot: Plan: Acute wound infection of left foot complicated by diabetes, PAD, and ESRD - Cultures from 26 December obtained in OR and 25 December obtained on admission - E. coli and MSSA - Currently on day #5 of Unasyn - Renally dosed and scheduled appropriately following dialysis - Completed 2 days of Cefepime and Vancomycin prior - Remains afebrile, with normal WBC count - S/p TMA by Podiatry on 12/30, with plan for delayed closure on 01/02 - S/p angio with balloon/stenting to left proximal/mid SFA disease 12/31, also noted to have small diffuse disease in pedal vessels - Continue wound care, NPO at midnight for surgery (2) PAD (peripheral artery disease): Plan: Chronic - review of chart implies that patient did have some intervention to BLE for her PAD at [facility]- no outside records received or available for review at this time LEVAR completed JAN 02 - s/p Angio as above - Continue ASA/Plavix (3) DM II (diabetes mellitus, type II), controlled: Plan: Chronic- controlled currently with Hbg A1c 5.6% in November 2022 Carb consistent diet Novolog SSI BSGs controlled (4) ESRD (end stage renal disease) on dialysis: Plan: Chronic- she has AV fistula in right bicep - MWF dialysis - Resume Lasix - Daily BMP - Continue sevelamer - Appreciate Nephrology recommendations (5) HTN (hypertension): Plan: Chronic/Stable. - Continue current medical plan with amlodipine, clonidine, Imdur, lisinopril, and metoprolol (6) CAD (coronary artery disease): Plan: Chronic stable- without chest pain or symptoms - Follows with [facility] - Cont asa, Plavix, BB, statin, Imdur (7) Anemia: Plan: Chronic- anemia of chronic disease 2nd to ESRD. - Iron studies sent by Nephrology - FE 50, TIBC 184, Unsat IBC 134, Ferritin 795 - Defer Fe management to Nephrology, s/p Venofer - HGB stable at 8.5, CBC reviewed (8) Hyperlipidemia: Plan: Chronic Cont statin (9) Hypothyroidism: Plan: Chronic TSH in 11/2022 was normal limits Cont Synthroid (10) DVT prophylaxis: Plan: Heparin 5000 BID (11) Depression: Plan: Patient voices no concerns of depression or suicide ideations at this time, does have depressed affect - Continue to follow her response and feelings - feels improved today and better rested Plan PT and OT post-op, to help determine discharge needs Admission and Anticipated Discharge Date Admission Date: December 25, 2022 Subjective No overnight events. Had forgotten what day it was, didn't remember if surgery was today or tomorrow. Denies pain at time of interview, no SOB, no chest pain. Review of Systems Review of Systems: All systems reviewed & are unremarkable except as noted in Subjective Physical Exam Constitutional: WD/WN, vitals as above Cardiovascular: RRR, no murmur, no edema Gastrointestinal (Abdomen): normal bowel sounds, soft, nontender, no hepatosplenomegaly Skin: no rashes, warm and dry Dressing intact to LLE Psychiatric: A+Ox3, euthymic affect Results & Data Results & Data Vital Signs (Past 12 Hours) Vital Signs Temp Pulse Pulse Pulse Resp BP Pulse Ox 12/31/22 22:30 71 01/01/23 03:06 37.2 C 77 20 158/67 H 98 01/01/23 01:49 78 16 157/61 H 01/01/23 01:00 73 16 169/67 H 93 01/01/23 00:00 200/65 H 12/31/22 21:00 12/31/22 23:22 36.7 C 70 16 185/65 H 98 12/31/22 20:02 36.8 C 74 17 181/67 H 95 O2 Del Method 12/31/22 22:30 01/01/23 03:06 Room Air 01/01/23 01:49 01/01/23 01:00 Room Air 01/01/23 00:00 12/31/22 21:00 Room Air 12/31/22 23:22 Room Air 12/31/22 20:02 Room Air PG Care Time/CCT Total # of Minutes Spent Total Time Spent with Patient: Total time spent is greater than 50% in coordination of care (as documented) at patient's floor/unit and/or counseling patient: Coding Level of Care Code 29149 SUB INP/OBS CARE 3/50MIN Diagnoses Open wound of left foot S91.302A Encounter type: initial encounter PAD (peripheral artery disease) I73.9 DM II (diabetes mellitus, type II), controlled E11.9 ESRD (end stage renal disease) on dialysis N18.6; Z99.2 HTN (hypertension) I10 CAD (coronary artery disease) I25.10 Anemia D64.9 Hyperlipidemia E78.5 Hypothyroidism E03.9 DVT prophylaxis Z29.9 Depression F32.A (1) Open wound of left foot Encounter type: initial encounter Qualified Code(s): S91.302A - Unspecified open wound, left foot, initial encounter
[2023-01-01 08:52] LABS: BUN Creatinine Ratio 4.6 (10-20); Calcium 9.4 mg/dl (8.6-10.3); Creatinine Clr Calc Pharmacy 16.6 ml/min; Est GFR (African American) 20.2 ml/min; Est GFR (Non-African American) 17.4 ml/min; Potassium 4.2 mmol/L (3.5-5.1)
--- NOTE | 2023-01-01 08:52 | Nephrology Progress Note ---
Date of Service January 01, 2023 Assessment & Plan (1) ESRD (end stage renal disease) on dialysis: Plan: * Dialyzed yesterday without complication. Volume status and electrolyte balance are acceptable. No acute indication for HD today * Outpatient HD MWF [facility] Ha (3 hours, F-180NR, Qb 400/Qd 500, 2K, 35 HCO3, 137 Na, EDW 58 kg). * Recommend renal diet, daily fluid restriction of 1.5 L * Continue Sevelamer QAC (2) HTN (hypertension): Plan: * BP is acceptable * Continue lisinopril, clonidine, metoprolol, Imdur, and amlodipine (3) Anemia: Plan: * Epogen 55367 units with HD provided 12/29. (4) Open wound of left foot: Plan: * L foot wound irrigation and application of wound vac 12/26/22 * s/p L TMA 12/30/22 * BILL ADJUSTER w/ WILLIAM of L SFA 12/31/22 Admission and Anticipated Discharge Date Admission Date: December 25, 2022 Subjective Mrs. Hudson was evaluated in her hospital room this morning. She c/o discomfort from her L TMA site. She denies angina, dyspnea. She reports no complications w/ HD yesterday Review of Systems Constitutional: no fever Eyes: no worsening vision Ear, Nose, Mouth, Throat: no problem reported Respiratory: no cough and no dyspnea Cardiovascular: no chest pain Gastrointestinal: no abdominal pain, no nausea, no vomiting and no diarrhea/loose stools Physical Exam Constitutional: not in distress Eyes: PERRL, conjunctivae normal, anicteric sclerae ENMT: external ear and nose normal, oropharynx normal Neck: trachea midline, no thyromegaly Respiratory: normal respiratory effort, lungs clear to auscultation Cardiovascular: RRR, no murmur, no edema Extremities: + AV fistula (R BC AVF + bruit) Gastrointestinal (Abdomen): normal bowel sounds, soft, nontender, no hepatosplenomegaly Neurologic: Speech / Cognition: normal speech and normal cognition Results & Data Vital Signs (Past 12 Hours) Vital Signs Temp Pulse Pulse Pulse Resp BP Pulse Ox 01/01/23 07:12 36.7 C 73 18 139/58 L 95 12/31/22 22:30 71 01/01/23 03:06 37.2 C 77 20 158/67 H 98 01/01/23 01:49 78 16 157/61 H 01/01/23 01:00 73 16 169/67 H 93 01/01/23 00:00 200/65 H 12/31/22 21:00 12/31/22 23:22 36.7 C 70 16 185/65 H 98 O2 Del Method 01/01/23 07:12 Room Air 12/31/22 22:30 01/01/23 03:06 Room Air 01/01/23 01:49 01/01/23 01:00 Room Air 01/01/23 00:00 12/31/22 21:00 Room Air 12/31/22 23:22 Room Air Laboratory Results Laboratory Tests 12/31/22 01/01/23 01/01/23 08:04 06:21 06:21 WBC 6.68 Hgb 8.0 L 8.5 L Hct 26.1 L Plt Count 181 Sodium 139 Potassium 4.2 Chloride 104 Carbon Dioxide 24 BUN 13 D Creatinine 2.81 H D Glucose 111 H PG Care Time/CCT Total # of Minutes Spent Total Time Spent with Patient: Total time spent is greater than 50% in coordination of care (as documented) at patient's floor/unit and/or counseling patient: Coding Level of Care Code 67248 SUB INP/OBS CARE 350MIN Diagnoses ESRD (end stage renal disease) on dialysis N18.6; Z99.2 HTN (hypertension) I10 Anemia D64.9 Open wound of left foot S91.302A Encounter type: initial encounter (4) Open wound of left foot Encounter type: initial encounter Qualified Code(s): S91.302A - Unspecified open wound, left foot, initial encounter
[2023-01-01] MEDS: INSULIN ASPART PER UNIT CHARGE SC SCH ×4 (09:23→22:01)
[2023-01-01] MEDS: ASPIRIN 81 MG CHEW PO SCH (10:09)
[2023-01-01] MEDS: FUROSEMIDE 40 MG TAB PO SCH (10:09)
[2023-01-01] MEDS: cloNIDine HCL 0.1 MG TAB PO SCH (10:09)
[2023-01-01] MEDS: SEVELAMER HCL 800 MG TABLET PO SCH ×3 (10:10→17:15)
[2023-01-01] MEDS: CLOPIDOGREL BISULFATE 75 MG TAB PO SCH (10:10)
[2023-01-01] MEDS: allopurinoL 100 MG TAB PO SCH (10:10)
[2023-01-01] MEDS: CEROVITE ADV FORMULA TAB PO SCH (10:10)
[2023-01-01] MEDS: LORATADINE 10 MG TAB PO SCH (10:11)
[2023-01-01] MEDS: amLODIPine BESYLATE 5 MG TAB PO SCH (10:11)
[2023-01-01] MEDS: lisinopril 40 MG TAB PO SCH (10:12)
[2023-01-01] MEDS: METOPROLOL TARTRATE 50 MG TAB PO SCH ×2 (10:13→21:59)
[2023-01-01] MEDS: PANTOprazole 40 MG TAB PO SCH (10:13)
[2023-01-01] MEDS: AMPICILLIN/SULBACTAM SOD 3,000 MG in 0.9 % SODIUM CHLORIDE 100 ML IV SCH ×2 (10:42→22:35)
[2023-01-01] MEDS: HEPARIN SOD 5,000 UNIT/0.5 ML VIAL SQ SCH ×2 (11:33→21:57)
--- NOTE | 2023-01-01 14:31 | Anesthesiology Consultation ---
Date of Service January 01, 2023 Assessment & Plan Chart Review Chart Review: water and gas helper initiated History Surgery Operation Date: 12/26/22 09:00 Proposed Procedures p Incision and Drainage Left Foot(Left) - Yong Dias DPM, MS Operation Date: 12/30/22 14:20 Proposed Procedures p Left Foot Amputation Transmetatarsal - Yong Dias DPM, MS Operation Date: 12/31/22 12:00 Proposed Procedures p Angiogram Extremity Unilateral - Mitul Campbell MD Operation Date: 01/02/23 09:30 Proposed Procedures p Left Foot Wash Out and Delayed Primary Closure - Yong Dias DPM, MS Height/Weight Height: 5 ft 2 in Weight: 59.2 kg Allergies Allergy/AdvReac Type Severity Reaction Status Date / Time morphine Allergy Severe Hallucinati Unverified 12/25/22 15:17 ng codeine Allergy Intermediate Redness of Unverified 12/25/22 15:17 Skin prednisone Allergy Intermediate Itching Unverified 12/25/22 15:17 Medications Home Medications Medication Instructions Recorded Confirmed Last Taken albuterol sulfate 90 mcg/actuation 1 puff inhalation QID PRN bad cough 11/12/22 12/25/22 Unknown aerosol inhaler allopurinol 100 mg tablet 100 mg PO DAILY 11/12/22 12/25/22 12/25/22 amitriptyline 100 mg tablet 100 mg PO HS 11/12/22 12/25/22 12/24/22 amlodipine 2.5 mg tablet 2.5 mg PO DAILY 11/12/22 12/25/22 12/25/22 ascorbic acid (vitamin C) 500 mg 500 mg PO DAILY 11/12/22 12/25/22 12/25/22 capsule aspirin 81 mg chewable tablet 81 mg PO DAILY 11/12/22 12/25/22 12/25/22 atorvastatin 40 mg tablet (Lipitor) 40 mg PO HS 11/12/22 12/25/22 12/24/22 cholecalciferol (vitamin D3) 50 50 mcg PO DAILY 11/12/22 12/25/22 12/25/22 mcg (2,000 unit) tablet clonidine HCl 0.1 mg tablet 0.1 mg PO DAILY 11/12/22 12/25/22 12/25/22 clopidogrel 75 mg tablet 75 mg PO DAILY 06/08/0512/25/22 12/25/22 denosumab 60 mg/mL subcutaneous 60 mg subcut Q6M 11/12/22 12/25/22 7 Months Ago syringe (Prolia) ~05/27/22 docusate sodium 100 mg capsule 100 mg PO DAILY PRN Constipation 11/12/22 12/25/22 Unknown (Colace) esomeprazole magnesium 40 mg 40 mg PO DAILY 11/12/22 12/25/22 12/25/22 capsule,delayed release (Nexium) ezetimibe 10 mg tablet 10 mg PO DAILY 11/12/22 12/25/22 12/25/22 furosemide 40 mg tablet (Lasix) 40 mg PO DAILY 11/12/22 12/25/22 12/25/22 isosorbide mononitrate 30 mg 30 mg PO HS 11/12/22 12/25/22 12/24/22 tablet,extended release 24 hr latanoprost 0.005 % eye drops 1 drp ophthalmic (eye) HS 11/12/22 12/25/22 12/24/22 levothyroxine 125 mcg tablet 125 mcg PO QAM 11/12/22 12/25/22 12/25/22 lisinopril 40 mg tablet (Zestril) 40 mg PO DAILY 11/12/22 12/25/22 12/25/22 loratadine 10 mg tablet 10 mg PO DAILY 11/12/22 12/25/22 12/25/22 melatonin 10 mg capsule 10 mg PO HS 11/12/22 12/25/22 12/24/22 metoprolol tartrate 50 mg tablet See Rx Instructions .Route .COMPLEX 11/12/22 12/25/22 12/25/22 nitroglycerin 0.4 mg sublingual See Rx Instructions .Route .COMPLEX 11/12/22 12/25/22 Unknown tablet sevelamer carbonate 800 mg tablet 800 mg PO TID 11/12/22 12/25/22 12/25/22 vit B,C-folic ac 800 mcg-zinc 12.5 1 tab PO DAILY 11/12/22 12/25/22 12/25/22 mg-selen-D3 2,000 unit-vit E tablet (RenaPlex-D) zolpidem 5 mg tablet (Ambien) 5 mg PO HS 11/12/22 12/25/22 12/24/22 oxycodone 5 mg tablet 5 mg PO Q4H #20 tabs 11/22/22 12/25/22 12/25/22 insulin aspart U-100 100 unit/mL 2 sliding scale dose subcut 12/25/22 12/25/22 12/24/22 (3 mL) subcutaneous pen (Novolog .TIDWMEALS FlexPen U-100 Insulin aspart) Active Medications Generic Name Dose Route Start Last Admin Trade Name Miquel PRN Reason Stop Dose Admin Acetaminophen 650 mg 12/25/22 19:05 01/01/23 04:22 Acetaminophen 325 Mg Tab PO 01/24/23 19:04 650 mg Q4H PRN Administration pain/fever Allopurinol 100 mg 12/26/22 09:00 01/01/23 10:10 Allopurinol 100 Mg Tab PO 01/25/23 08:59 100 mg DAILY SHARIFA Administration Amitriptyline HCl 100 mg 12/25/22 21:00 12/31/22 21:29 Amitriptyline Hcl 100 Mg Tab PO 01/24/23 20:59 100 mg HS SHARIFA Administration Amlodipine Besylate 2.5 mg 12/26/22 09:00 01/01/23 10:11 Amlodipine Besylate 5 Mg Tab PO 01/25/23 08:59 2.5 mg DAILY SHARIFA Administration Aspirin 81 mg 12/26/22 09:00 01/01/23 10:09 Aspirin 81 Mg Chew PO 01/25/23 08:59 81 mg DAILY SHARIFA Administration Atorvastatin Calcium 40 mg 12/25/22 21:00 12/31/22 21:30 Atorvastatin 40 Mg Tab PO 01/24/23 20:59 40 mg HS SHARIFA Administration Clonidine HCl 0.1 mg 12/26/22 09:00 01/01/23 10:09 Clonidine Hcl 0.1 Mg Tab PO 01/25/23 08:59 0.1 mg DAILY SHARIFA Administration Clopidogrel Bisulfate 75 mg 12/26/22 09:00 01/01/23 10:10 Clopidogrel Bisulfate 75 Mg Tab PO 01/25/23 08:59 75 mg DAILY SHARIFA Administration Furosemide 40 mg 12/26/22 09:00 01/01/23 10:09 Furosemide 40 Mg Tab PO 01/25/23 08:59 40 mg DAILY SHARIFA Administration Heparin Sodium (Porcine) 5,000 units 12/26/22 21:00 01/01/23 11:33 Heparin Sod 5,000 Unit/0.5 Ml Vial SQ 01/25/23 20:59 5,000 units Q12 SHARIFA Administration Ampicillin Sodium/Sulbactam 108 mls @ 216 mls/hr 12/28/22 16:00 01/01/23 11:19 Sodium 3,000 mg/ Sodium IV 01/04/23 13:29 Infused Chloride Q12H SHARIFA Infusion Insulin Aspart 0 units 12/26/22 07:30 01/01/23 12:23 Insulin Aspart Per Unit Charge SC 01/25/23 07:29 Not Given ACHS SHARIFA Isosorbide Mononitrate 30 mg 12/25/22 21:00 12/31/22 21:30 Isosorbide [place] Extended Rel 30 Mg Tabcr PO 01/24/23 20:59 30 mg HS SHARIFA Administration Latanoprost 1 drops 12/25/22 21:00 12/31/22 21:33 Latanoprost 0.005% Op Soln 2.5 Ml Btl OP 01/24/23 20:59 1 drops HS SHARIFA Administration Levothyroxine Sodium 125 mcg 12/26/22 06:30 01/01/23 04:22 Levothyroxine Sodium 125 Mcg Tablet PO 01/25/23 06:29 125 mcg DAILYBB SHARIFA Administration Lisinopril 40 mg 12/26/22 09:00 01/01/23 10:12 Lisinopril 40 Mg Tab PO 01/25/23 08:59 40 mg DAILY SHARIFA Administration Loratadine 10 mg 12/26/22 09:00 01/01/23 10:11 Loratadine 10 Mg Tab PO 01/25/23 08:59 10 mg DAILY SHARIFA Administration Metoprolol Tartrate 50 mg 12/26/22 09:00 01/01/23 10:13 Metoprolol Tartrate 50 Mg Tab PO 01/25/23 08:59 50 mg QAM SHARIFA Administration Metoprolol Tartrate 100 mg 12/25/22 21:00 12/31/22 21:30 Metoprolol Tartrate 50 Mg Tab PO 01/24/23 20:59 100 mg HS SHARIFA Administration Multivitamins/Minerals 1 tab 12/26/22 09:00 01/01/23 10:10 Cerovite Adv Formula Tab PO 01/25/23 08:59 1 tab DAILY SHARIFA Administration Oxycodone HCl 5 - 10 mg 12/25/22 19:05 01/01/23 10:41 Oxycodone Hcl Ir 5 Mg Tab (Immediate Release) PO 01/08/23 19:04 10 mg Q4H PRN Administration Pain Pantoprazole Sodium 40 mg 12/26/22 09:00 01/01/23 10:13 Pantoprazole 40 Mg Tab PO 01/25/23 08:59 40 mg DAILY SHARIFA Administration Protocol Sevelamer HCl 800 mg 12/25/22 21:00 01/01/23 12:04 Sevelamer Hcl 800 Mg Tablet PO 01/24/23 20:59 800 mg TIDM SHARIFA Administration Zolpidem Tartrate 5 mg 12/25/22 21:00 12/31/22 21:26 Zolpidem Tartrate 5 Mg Tab PO 01/24/23 20:59 5 mg HS SHARIFA Administration NPO Date Last Intake of Fluids: 12/29/22 Time Last Intake of Fluids: 23:59 Date Last Intake of Solids: 12/29/22 Time Last Intake of Solids: 12:00 Past Medical History Medical History Anemia CAD (coronary artery disease) CHF (congestive heart failure) DM II (diabetes mellitus, type II), controlled ESRD (end stage renal disease) on dialysis HD -. Follows with Dr. Mckeon HTN (hypertension) Hypothyroidism Osteomyelitis of left foot Tobacco abuse Weakness Past Surgical History Surgical History S/P drug eluting coronary stent placement Social History Smoking Status: Current every day smoker tobacco type: cigarettes Smoking cigarettes per day: 6 Do You Dip or Chew Tobacco: No Hx Alcohol Use: No Hx Substance Use: No substance use type: does not use Physical Exam Vital Signs Last Vital Signs Temp 98.4 F 01/01/23 10:59 Pulse 69 01/01/23 10:59 Resp 16 01/01/23 10:59 BP 153/72 H 01/01/23 10:59 Pulse Ox 99 01/01/23 10:59 O2 Del Method Room Air 01/01/23 10:59 O2 Flow Rate 5 12/30/22 17:45 Testing Laboratory Results 01/01/23 06:21 01/01/23 06:21 12/26/22 10:16 Gram Stain - Final Foot,Left Aerobic and Anaerobic Culture - Final Escherichia coli Staphylococcus aureus 12/30/22 17:54 Gram Stain - Final Foot,Left Aerobic and Anaerobic Culture - Preliminary No growth to date. 12/25/22 16:06 Aerobic Blood Culture - Final Blood No growth in Aerobic bottle after 5 days. Anaerobic Blood Culture - Final No growth in Anaerobic bottle after 5 days. 12/25/22 16:06 Aerobic Blood Culture - Final Blood No growth in Aerobic bottle after 5 days. Anaerobic Blood Culture - Final No growth in Anaerobic bottle after 5 days. 12/25/22 15:42 Gram Stain - Final Foot,Left Aerobic and Anaerobic Culture - Final Escherichia coli Staphylococcus aureus 01/01/23 01/01/23 11:17 07:17 POC Glucose 152 H 105 H Electrocardiogram Date: 11/12/22 Findings: + NSR @ (@ 61;LVH)
[2023-01-01] MEDS: POLYETHYLENE (MIRALAX) 17 GM PACK PO SCH (15:38)
[2023-01-01] MEDS: ZOLPIDEM TARTRATE 5 MG TAB PO SCH (21:54)
[2023-01-01] MEDS: ATORVASTATIN 40 MG TAB PO SCH (21:57)
[2023-01-01] MEDS: AMITRIPTYLINE HCL 100 MG TAB PO SCH (21:58)
[2023-01-01] MEDS: ISOSORBIDE MONO EXTENDED REL 30 MG TABCR PO SCH (21:59)
[2023-01-01] MEDS: LATANOPROST 0.005% OP SOLN 2.5 ML BTL OP SCH (22:00)
[2023-01-02] MEDS: LEVOTHYROXINE SODIUM 125 MCG TABLET PO SCH (05:04)
--- NOTE | 2023-01-02 07:01 | Hospitalist Progress Note ---
Date of Service January 02, 2023 Assessment & Plan (1) Open wound of left foot: Plan: Acute wound infection of left foot complicated by diabetes, PAD, and ESRD - Cultures from 26 December obtained in OR and 25 December obtained on admission - E. coli and MSSA - Currently on day #6 of Unasyn - Renally dosed and scheduled appropriately following dialysis - Completed 2 days of Cefepime and Vancomycin prior to Abx change - Remains afebrile, with normal WBC count - S/p TMA by Podiatry on 12/30, with delayed primary wound closure on 01/02 - S/p angio with balloon/stenting to left proximal/mid SFA disease 12/31, also noted to have small diffuse disease in pedal vessels - Continue wound care (2) PAD (peripheral artery disease): Plan: Chronic - review of chart implies that patient did have some intervention to BLE for her PAD at [facility]- no outside records received or available for review at this time - LEVAR completed JAN 02 - s/p Angio as above - Continue ASA/Plavix (3) ESRD (end stage renal disease) on dialysis: Plan: Chronic- she has AV fistula in right bicep, and gets MWF dialysis. Patient is on Lasix at home, ordered by non-Nephrology provider, would clarify if this medication should continue (patient does make a little bit of urine). Continue sevelamer (4) DM II (diabetes mellitus, type II), controlled: Plan: Chronic- controlled currently with Hbg A1c 5.6% in November 2022. Continue carb- consistent diet, with SSI. (5) HTN (hypertension): Plan: Chronic/Stable. Continue current medical plan with amlodipine, clonidine, Imdur, lisinopril, and metoprolol. (6) CAD (coronary artery disease): Plan: Chronic stable- without chest pain or symptoms - Follows with [facility] - Cont asa, Plavix, BB, statin, Imdur (7) Anemia: Plan: Anemia of chronic disease 2nd to ESRD. Iron studies recently sent by Nephrology - FE 50, TIBC 184, Unsat IBC 134, Ferritin 795. S/p Venofer. Hgb stable at 8.3, did go to OR today, will check AM hemoglobin. (8) Hyperlipidemia: Plan: Chronic, continue statin. (9) Hypothyroidism: Plan: TSH in 11/2022 was WNL. Continue Synthroid. (10) DVT prophylaxis: Plan: Heparin 5000 BID (11) Depression: Plan: Patient voices no concerns of depression or suicide ideations at this time, but does have depressed affect Plan PT and OT post-op, to help determine discharge needs. Admission and Anticipated Discharge Date Admission Date: December 25, 2022 Subjective Had delayed wound closure surgery today. Tired and feels cold on my afternoon interview, no complaints of chest pain, SOB, abdominal pain, lightheadedness. Review of Systems Review of Systems: All systems reviewed & are unremarkable except as noted in Subjective Physical Exam Constitutional: WD/WN, vitals as above Cardiovascular: RRR, no murmur, no edema Gastrointestinal (Abdomen): normal bowel sounds, soft, nontender, no hepatosplenomegaly Skin: no rashes, warm and dry Dressing intact to LLE Psychiatric: alert and oriented, tired, arouses to voice, euthymic affect Results & Data Results & Data Vital Signs (Past 12 Hours) Vital Signs Temp Pulse Pulse Resp BP Pulse Ox O2 Del Method 01/02/23 04:00 36.4 C L 61 18 154/63 H 100 Room Air 01/02/23 00:10 36.8 C 73 73 H 160/64 H 99 Room Air 01/01/23 22:20 72 01/01/23 22:00 Room Air 01/01/23 20:15 37.2 C 85 17 188/70 H 100 Room Air PG Care Time/CCT Total # of Minutes Spent Total Time Spent with Patient: Total time spent is greater than 50% in coordination of care (as documented) at patient's floor/unit and/or counseling patient: Coding Level of Care Code 93825 SUB INP/OBS CARE 3/50MIN Diagnoses Open wound of left foot S91.302A Encounter type: initial encounter PAD (peripheral artery disease) I73.9 ESRD (end stage renal disease) on dialysis N18.6; Z99.2 DM II (diabetes mellitus, type II), controlled E11.9 HTN (hypertension) I10 CAD (coronary artery disease) I25.10 Anemia D64.9 Hyperlipidemia E78.5 Hypothyroidism E03.9 DVT prophylaxis Z29.9 Depression F32.A (1) Open wound of left foot Encounter type: initial encounter Qualified Code(s): S91.302A - Unspecified open wound, left foot, initial encounter
[2023-01-02 07:04] LABS: Hemoglobin 8.3 g/dl (12.0-16.0); Mean Corpuscular Hemoglobin 31.6 pg (25.0-34.0); Mean Corpuscular Hgb Conc 33.2 g/dL (32.0-36.0); Mean Corpuscular Volume 95.1 fL (80.0-100.0); Mean Platelet Volume 11.5 fL (9.4-12.4); Nucleated RBC # (auto) 0.02 K/uL (0-0.12); Nucleated RBC % (auto) 0.2 %; Platelet Count 198 K/uL (130-400); RDW Coefficient of Variation 13.6 % (11.5-14.5); RDW Standard Deviation 46.7 fL (36.4-46.3); Red Blood Count 2.63 M/uL (4.20-5.40); White Blood Count 8.07 K/ul (4.8-10.8)
[2023-01-02 07:11] LABS: BUN Creatinine Ratio 4.7 (10-20); Calcium 9.5 mg/dl (8.6-10.3); Creatinine Clr Calc Pharmacy 11.5 ml/min; Est GFR (African American) 12.9 ml/min; Est GFR (Non-African American) 11.1 ml/min; Potassium 4.5 mmol/L (3.5-5.1)
[2023-01-02] MEDS ORDERED: fentaNYL citrate PF 100 MCG/2 ML VIAL IV PRN (07:30)
[2023-01-02] MEDS ORDERED: ePHEDrine sulfate 50 MG/ML AMP IV PRN (07:30)
[2023-01-02] MEDS ORDERED: ONDANSETRON INJ 2 MG/ML 2 ML VIAL IV PRN (07:30)
[2023-01-02] MEDS ORDERED: ATROPINE SULFATE 0.1 MG/ML 10ML SYR IV PRN (07:30)
[2023-01-02] MEDS: INSULIN ASPART PER UNIT CHARGE SC SCH ×4 (08:33→20:41)
--- NOTE | 2023-01-02 08:52 | History & Physical Bridge Note ---
Date of Service January 02, 2023 History & Physical Bridge Note I have examined the patient, reviewed the History & Physical and in the interval since the performance of the History & Physical I have noted the following changes of clinical significance: no changes noted
[2023-01-02] MEDS ORDERED: fentaNYL citrate PF 100 MCG/2 ML VIAL ONE (08:53)
[2023-01-02] MEDS ORDERED: MIDAZOLAM HCL 1 MG/ML 2ML VIAL ONE (08:53)
[2023-01-02] MEDS ORDERED: PROPOFOL IV EMULSION 10 MG/ML 20 ML VIAL IV ONE (08:53)
[2023-01-02] MEDS ORDERED: LIDOCAINE 2% 2 ML VIAL/AMP(20MG/ML) INFIL ONE (08:53)
[2023-01-02] MEDS ORDERED: BUPIVACAINE/EPINEPHRINE 0.5% MPF 1:200,000 30 ML VIAL ONE (08:58)
--- NOTE | 2023-01-02 09:03 | Nephrology Progress Note ---
Date of Service January 02, 2023 Assessment & Plan (1) ESRD (end stage renal disease) on dialysis: Plan: * Volume status and electrolyte balance are acceptable. No acute indication for HD today * Will schedule next HD for Tuesday am * Outpatient HD MWF [facility] Ha (3 hours, F-180NR, Qb 400/Qd 500, 2K, 35 HCO3, 137 Na, EDW 58 kg). * Recommend renal diet, daily fluid restriction of 1.5 L * Continue Sevelamer QAC (2) HTN (hypertension): Plan: * BP is acceptable * Continue lisinopril, clonidine, metoprolol, Imdur, and amlodipine (3) Anemia: Plan: * Epogen 58020 units with HD provided 12/29. (4) Open wound of left foot: Plan: * L foot wound irrigation and application of wound vac 12/26/22 * s/p L TMA 12/30/22 * METAL BONDING PRESS OPERATOR w/ WILLIAM of L SFA 12/31/22 * L foot wound wash out 01/02/23 Admission and Anticipated Discharge Date Admission Date: December 25, 2022 Subjective Mrs. Hudson was evaluated in her hospital room this morning. She underwent wash out of her L foot surgical site this morning Review of Systems Constitutional: no fever Eyes: no worsening vision Ear, Nose, Mouth, Throat: no problem reported Respiratory: no cough and no dyspnea Cardiovascular: no chest pain Gastrointestinal: no abdominal pain, no nausea, no vomiting and no diarrhea/loose stools Physical Exam Constitutional: not in distress Eyes: PERRL, conjunctivae normal, anicteric sclerae ENMT: external ear and nose normal, oropharynx normal Neck: trachea midline, no thyromegaly Respiratory: normal respiratory effort, lungs clear to auscultation Cardiovascular: RRR, no murmur, no edema Extremities: + AV fistula (R BC AVF + bruit) Gastrointestinal (Abdomen): normal bowel sounds, soft, nontender, no hepatosplenomegaly Neurologic: Speech / Cognition: normal speech and normal cognition Results & Data Vital Signs (Past 12 Hours) Vital Signs Temp Pulse Pulse Resp BP Pulse Ox O2 Del Method 01/02/23 07:56 60 01/02/23 04:00 36.4 C L 61 18 154/63 H 100 Room Air 01/02/23 00:10 36.8 C 73 73 H 160/64 H 99 Room Air 01/01/23 22:20 72 01/01/23 22:00 Room Air Laboratory Results Laboratory Tests 01/02/23 01/02/23 06:25 06:25 WBC 8.07 Hgb 8.3 L Hct 25.0 L Plt Count 198 Sodium 137 Potassium 4.5 Chloride 103 Carbon Dioxide 27 BUN 19 Creatinine 4.08 H D Glucose 106 H PG Care Time/CCT Total # of Minutes Spent Total Time Spent with Patient: Total time spent is greater than 50% in coordination of care (as documented) at patient's floor/unit and/or counseling patient: Coding Level of Care Code 54026 SUB INP/OBS CARE 3/50MIN Diagnoses ESRD (end stage renal disease) on dialysis N18.6; Z99.2 HTN (hypertension) I10 Anemia D64.9 Open wound of left foot S91.302A Encounter type: initial encounter (4) Open wound of left foot Encounter type: initial encounter Qualified Code(s): S91.302A - Unspecified open wound, left foot, initial encounter
--- NOTE | 2023-01-02 09:55 | Post Operative Brief Note ---
Immediate Post Op Note v1 Date of Surgery January 02, 2023 Pre & Post Diagnosis Operation Date: 01/02/23 09:30 Pre-Op Diagnosis: Open wound of left foot Post-Op Diagnosis: Open wound of left foot I identified the patient and participated in the time-out.: Yes Procedure Operation Date: 01/02/23 09:30 Actual Procedures p Left Foot Wash Out and Delayed Primary Closure(Left) - Yong Dias DPM, MS Surgeon Yong Dias DPM, MS Survey Research Associate none Estimated Blood Loss 0 Findings Consistent with Post-Op Diagnosis None Specimens 4th metatatarsal left- Microbiology Leftfore foot - Pathology Anesthesia Type RN Sedation
[2023-01-02] MEDS: AMPICILLIN/SULBACTAM SOD 3,000 MG in 0.9 % SODIUM CHLORIDE 100 ML IV SCH ×2 (09:59→21:25)
--- NOTE | 2023-01-02 10:22 | Anesthesiology Progress Note ---
Date of Service January 02, 2023 Anesthesia Post Procedure Vital Signs Vital Signs: Temp Pulse Pulse Resp BP Pulse Ox O2 Del Method 01/02/23 07:16 97.5 F L 61 17 163/80 H 97 Room Air 01/02/23 07:56 60 01/02/23 04:00 97.5 F L 61 18 154/63 H 100 Room Air 01/02/23 00:10 98.2 F 73 73 H 160/64 H 99 Room Air 01/01/23 22:20 72 01/01/23 22:00 Room Air 01/01/23 20:15 99.0 F 85 17 188/70 H 100 Room Air 01/01/23 15:42 98.1 F 69 16 97 Room Air 01/01/23 15:25 66 01/01/23 10:59 98.4 F 69 16 153/72 H 99 Room Air Pain Intensity Left Foot: Pain Intensity: 8 Transfer of Care Handoff Completed per policy Notes Mental Status: alert / awake / arousable and participated in evaluation Patient Amnestic to Procedure: Yes Nausea / Vomiting: adequately controlled Pain: adequately controlled Airway Patency, RR, SpO2: stable & adequate BP & HR: stable & adequate Hydration State: stable & adequate Anesthetic Complications: no major complications apparent and Pt Satisfied with anesthetic care
[2023-01-02] MEDS: SEVELAMER HCL 800 MG TABLET PO SCH ×3 (11:27→17:07)
[2023-01-02] MEDS: FUROSEMIDE 40 MG TAB PO SCH (11:28)
[2023-01-02] MEDS: METOPROLOL TARTRATE 50 MG TAB PO SCH ×2 (11:29→20:37)
[2023-01-02] MEDS: LORATADINE 10 MG TAB PO SCH (11:29)
[2023-01-02] MEDS: lisinopril 40 MG TAB PO SCH (11:30)
[2023-01-02] MEDS: PANTOprazole 40 MG TAB PO SCH (11:30)
[2023-01-02] MEDS: CEROVITE ADV FORMULA TAB PO SCH (11:31)
[2023-01-02] MEDS: CLOPIDOGREL BISULFATE 75 MG TAB PO SCH (11:31)
[2023-01-02] MEDS: amLODIPine BESYLATE 5 MG TAB PO SCH (11:32)
[2023-01-02] MEDS: allopurinoL 100 MG TAB PO SCH (11:33)
[2023-01-02] MEDS: SENNA 8.6 MG TAB PO SCH (11:34)
[2023-01-02] MEDS: POLYETHYLENE (MIRALAX) 17 GM PACK PO SCH (11:49)
[2023-01-02] MEDS: HEPARIN SOD 5,000 UNIT/0.5 ML VIAL SQ SCH ×2 (11:50→20:38)
[2023-01-02] MEDS: ASPIRIN 81 MG CHEW PO SCH (12:34)
[2023-01-02] MEDS: cloNIDine HCL 0.1 MG TAB PO SCH (12:34)
--- NOTE | 2023-01-02 18:03 | Operative Report ---
Post Operative Report Pre & Post Diagnosis Operation Date: 01/02/23 09:30 Pre-Op Diagnosis: Open wound of left foot Post-Op Diagnosis: Open wound of left foot I identified the patient and participated in the time-out.: Yes Procedure Operation Date: 01/02/23 09:30 Actual Procedures p Left Foot Wash Out and Delayed Primary Closure(Left) - oYng Dias DPM, MS Surgeon Yong Dias DPM, MS Appeals Analyst none Estimated Blood Loss 0 Findings Consistent with Post-Op Diagnosis Consistent with pre-operative findings Specimens None Description of Procedure History of present illness: Patient is a diabetic, 62 year old female who is seen for delayed primary closure. Patient is a vasculopathy and neuropath is st atus post transmetatarsal amputation. Due to infection wound was left open. Soft tissue has demarcated. Patient requires skin plasty for closure. All questions answered. Discussed procedure in detail and postoperative recovery. All potential risks, benefits, complications, alternatives, rehab, potential for incomplete relief of symptoms, need for further surgery, DVT, PE, , persistent pain, swelling, scarring, weakness, neurovascular, wound complications and potential for amputations were discussed with patient. Unwanted outcomes such as, but not limited to were reviewed including under correction, overcorrection, return of deformity, infection. All questions were answered. Patient has decided to proceed with procedure as indicated. Preoperative diagnosis: 1.) Diabetic foot wound left Postoperative diagnosis: same Name of operation: 1.) Debridement of left foot wound 2.)Secondary closure of surgical wound extensive with skin plasty left foot Surgeon: Dr. Dias Appeals Analyst: None Anesthesia: Monitored anesthesia care Hemostasis: None Estimated blood loss: 0 ml Procedure in detail: Under mild sedation the patient was brought in the operating room placed on the operating table in supine position. Following IV sedation the foot was prepped scrubbed and draped in usual aseptic manner. Attention was then directed to a large surgical deficit of the left foot. Patient is status post transmetatarsal amputation. The wound measures 10 cm x 8 cm x 5 cm. The wound bed shows 30% necrotic or non viable tissue well demarcated. Utilizing a sharp, sterile, #15 blade the wound is voided of non viable soft tissue. Excision debridement is carried down to and including muscle and tendon to achieve a healthy wound bed. 1L of lactate ringer was then irrigated with into the wound. A plantar rotational skin plasty is utilized in order to gain coverage. At this time wound is closed in layers. Vertical mattress sutures are applied distal to wound as retention sutures utilizing 2-0 nylon. More proximal to wound edges vertical mattress sutures are applied. Finally wound edges are re-approximated using 3-0 nylon with simple suture technique. Upon completion of the procedure the lateral wound was dressed with sterile dressing consisting of 4 x 4's Catherine Kerlix ABD. The Patient tolerated the procedure and anesthesia well. He was transferred to recovery room vital signs stable and vascular status intact all toes of the left foot following. Following a period of postoperative monitoring the patient will be readmitted to floor with the continuation of all preoperative orders. I attest to the content of the Intraoperative Record and any orders documented therein. Any exceptions are noted below.
[2023-01-02] MEDS: LATANOPROST 0.005% OP SOLN 2.5 ML BTL OP SCH (20:36)
[2023-01-02] MEDS: AMITRIPTYLINE HCL 100 MG TAB PO SCH (20:36)
[2023-01-02] MEDS: ATORVASTATIN 40 MG TAB PO SCH (20:36)
[2023-01-02] MEDS: ISOSORBIDE MONO EXTENDED REL 30 MG TABCR PO SCH (20:37)
[2023-01-02] MEDS: ACETAMINOPHEN 325 MG TAB PO PRN (20:39)
[2023-01-02] MEDS: oxyCODONE HCL IR 5 MG TAB (IMMEDIATE RELEASE) PO PRN (20:39)
[2023-01-02] MEDS: ZOLPIDEM TARTRATE 5 MG TAB PO SCH (20:40)
[2023-01-03] MEDS: LEVOTHYROXINE SODIUM 125 MCG TABLET PO SCH (04:30)
[2023-01-03 06:49] LABS: Calcium 9.3 mg/dl (8.6-10.3); Potassium 4.4 mmol/L (3.5-5.1)
[2023-01-03 06:50] LABS: Hematocrit (blood only) 21.3 % (37.0-47.0); Hemoglobin 6.9 g/dl (12.0-16.0)
[2023-01-03 06:56] LABS: BUN Creatinine Ratio 4.9 (10-20); Creatinine Clr Calc Pharmacy 9.1 ml/min; Est GFR (African American) 9.8 ml/min; Est GFR (Non-African American) 8.4 ml/min
[2023-01-03] MEDS ORDERED: SODIUM CHLORIDE 0.9% 1000ML 1,000 ML IV PRN (07:00)
[2023-01-03] MEDS ORDERED: EPOETIN ALFA 10,000 UNITS/ML VIAL IV ONE (07:00)
[2023-01-03] MEDS: METOPROLOL TARTRATE 50 MG TAB PO SCH ×2 (08:37→21:44)
[2023-01-03] MEDS: INSULIN ASPART PER UNIT CHARGE SC SCH ×4 (08:37→21:38)
[2023-01-03] MEDS: CLOPIDOGREL BISULFATE 75 MG TAB PO SCH (08:37)
[2023-01-03] MEDS: CEROVITE ADV FORMULA TAB PO SCH (08:38)
[2023-01-03] MEDS: FUROSEMIDE 40 MG TAB PO SCH (08:38)
[2023-01-03] MEDS: amLODIPine BESYLATE 5 MG TAB PO SCH (08:38)
[2023-01-03] MEDS: SEVELAMER HCL 800 MG TABLET PO SCH ×3 (08:39→16:45)
[2023-01-03] MEDS: POLYETHYLENE (MIRALAX) 17 GM PACK PO SCH (08:39)
[2023-01-03] MEDS: SENNA 8.6 MG TAB PO SCH (08:39)
[2023-01-03] MEDS: LORATADINE 10 MG TAB PO SCH (08:39)
[2023-01-03] MEDS: allopurinoL 100 MG TAB PO SCH (08:39)
[2023-01-03] MEDS: lisinopril 40 MG TAB PO SCH (08:39)
[2023-01-03] MEDS: HEPARIN SOD 5,000 UNIT/0.5 ML VIAL SQ SCH ×2 (08:40→21:37)
[2023-01-03] MEDS: PANTOprazole 40 MG TAB PO SCH (08:43)
[2023-01-03] MEDS: ASPIRIN 81 MG CHEW PO SCH (08:43)
[2023-01-03] MEDS: cloNIDine HCL 0.1 MG TAB PO SCH (08:43)
[2023-01-03] MEDS: ACETAMINOPHEN 325 MG TAB PO PRN ×3 (08:47→21:44)
--- NOTE | 2023-01-03 08:50 | Nephrology Progress Note ---
Date of Service January 03, 2023 Assessment & Plan (1) ESRD (end stage renal disease) on dialysis: Plan: * Will provide HD this am. Orders have been entered into EMR and HD RN notified * Outpatient HD MWF [facility] Ha (3 hours, F-180NR, Qb 400/Qd 500, 2K, 35 HCO3, 137 Na, EDW 58 kg). * Recommend renal diet, daily fluid restriction of 1.5 L * Continue Sevelamer QAC (2) HTN (hypertension): Plan: * BP is acceptable * Continue lisinopril, clonidine, metoprolol, Imdur, and amlodipine (3) Anemia: Plan: * Recommend transfusion for Hgb < 8.0 * Will provide AUGIE w/ HD today (4) Open wound of left foot: Plan: * L foot wound irrigation and application of wound vac 12/26/22 * s/p L TMA 12/30/22 * A R SPECIALIST w/ WILLIAM of L SFA 12/31/22 * L foot wound wash out 01/02/23 Admission and Anticipated Discharge Date Admission Date: December 25, 2022 Subjective Mrs. Hudson was evaluated prior to HD this morning. She underwent wash out of her L foot surgical site yesterday. She c/o discomfort at the surgical site but voices no other concerns Review of Systems Constitutional: no fever Eyes: no worsening vision Ear, Nose, Mouth, Throat: no problem reported Respiratory: no cough and no dyspnea Cardiovascular: no chest pain Gastrointestinal: no abdominal pain, no nausea, no vomiting and no diarrhea/loose stools Physical Exam Constitutional: not in distress Eyes: PERRL, conjunctivae normal, anicteric sclerae ENMT: external ear and nose normal, oropharynx normal Neck: trachea midline, no thyromegaly Respiratory: normal respiratory effort, lungs clear to auscultation Cardiovascular: RRR, no murmur, no edema Extremities: + AV fistula (R BC AVF + bruit) Gastrointestinal (Abdomen): normal bowel sounds, soft, nontender, no hepatosplenomegaly Neurologic: Speech / Cognition: normal speech and normal cognition Results & Data Vital Signs (Past 12 Hours) Vital Signs Temp Pulse Pulse Resp BP Pulse Ox O2 Del Method 01/02/23 22:05 72 01/02/23 22:57 36.6 C 72 18 153/67 H 98 Room Air Laboratory Results Laboratory Tests 01/03/23 01/03/23 06:02 06:02 Hgb 6.9 L* Hct 21.3 L Sodium 137 Potassium 4.4 Chloride 104 Carbon Dioxide 24 BUN 25 H Creatinine 5.12 H* D Glucose 102 H Calcium 9.3 PG Care Time/CCT Total # of Minutes Spent Total Time Spent with Patient: Total time spent is greater than 50% in coordination of care (as documented) at patient's floor/unit and/or counseling patient: Coding Level of Care Code 80113 SUB INP/OBS CARE 3/50MIN Diagnoses ESRD (end stage renal disease) on dialysis N18.6; Z99.2 HTN (hypertension) I10 Anemia D64.9 Open wound of left foot S91.302A Encounter type: initial encounter (4) Open wound of left foot Encounter type: initial encounter Qualified Code(s): S91.302A - Unspecified open wound, left foot, initial encounter
[2023-01-03] MEDS: AMPICILLIN/SULBACTAM SOD 3,000 MG in 0.9 % SODIUM CHLORIDE 100 ML IV SCH ×2 (12:50→21:46)
[2023-01-03] MEDS: oxyCODONE HCL IR 5 MG TAB (IMMEDIATE RELEASE) PO PRN ×2 (12:53→21:45)
--- NOTE | 2023-01-03 16:50 | Hospitalist Progress Note ---
Date of Service January 03, 2023 Assessment & Plan (1) Open wound of left foot: Plan: Acute wound infection of left foot complicated by diabetes, PAD, and ESRD. Cultures from 26 December obtained in OR and 25 December obtained on admission - E. coli and MSSA. Currently on day #7 of Unasyn. Completed 2 days of Cefepime and Vancomycin prior to Abx change. S/p left foot transmetatarsal amputation by Podiatry on 12/30, with delayed primary wound closure yesterday on 01/02. S/p angio with balloon/stenting to left proximal/mid SFA disease 12/31, also noted to have small diffuse disease in pedal vessels. Continue wound care (2) PAD (peripheral artery disease): Plan: s/p Angio as above. Continue ASA/Plavix (3) ESRD (end stage renal disease) on dialysis: Plan: Receives hemodialysis every Tuesday. AV fistula in right upper arm. Continue sevelamer. Appreciate nephrology consultation and management (4) DM II (diabetes mellitus, type II), controlled: Plan: ADA diet. Sliding scale coverage. Continue current medical management. Hbg A1c 5.6% in November 2022. (5) HTN (hypertension): Plan: Stable. Continue current medical plan with amlodipine, clonidine, Imdur, lisinopril, and metoprolol. (6) CAD (coronary artery disease): Plan: stable. Cont asa, Plavix, BB, statin, Imdur (7) Anemia: Plan: Anemia of chronic disease 2nd to ESRD. Iron studies recently sent by Nephrology - FE 50, TIBC 184, Unsat IBC 134, Ferritin 795. S/p Venofer. Serial labs (8) Hyperlipidemia: Plan: Stable. Continue statin. (9) Hypothyroidism: Plan: TSH in 11/2022 was WNL. Continue Synthroid. (10) DVT prophylaxis: Plan: Heparin 5000 BID (11) Depression: Plan: Patient voices no concerns of depression or suicide ideations at this time, but does have depressed affect Plan Probable discharge to [facility] in [place] when arrangements are finalized. She will not require ongoing parenteral antibiotics at discharge Admission and Anticipated Discharge Date Admission Date: December 25, 2022 Subjective Somewhat lethargic from medication side effect but hemodynamically stable. She underwent left foot transmetatarsal amputation on December 30 with subsequent delayed primary closure on January 02. She remains on intravenous Unasyn. Wound culture is growing E. coli and MSSA. Awaiting placement at [facility] in [place]. Review of Systems Review of Systems: Constitutional-no fever or chills ENT-no blurred vision, no double vision, no epistaxis, no sore throat Respiratory-no cough, no wheezing, no shortness of breath Cardiac-no palpitations, no chest pain, no syncope GI-no nausea, vomiting, diarrhea, melena, hematochezia -no urinary retention, no urinary incontinence, no dysuria, no hematuria Musculoskeletal-no joint pain, no muscle tenderness Skin-no bruising, no rashes, no pruritus Neuro-no isolated weakness, no paresthesia, no weakness Psych-no depression, no anxiety Physical Exam Physical Exam: General-awake but mildly lethargic. No fever HEENT-head atraumatic and normocephalic, pupils equal and reactive to light, extraocular muscles intact Neck-no lymphadenopathy or thyromegaly, trachea midline Chest-clear to auscultation percussion. No rales wheezing or rhonchi Cardiac-regular rate and rhythm, normal S1 and S2 Abdomen-normal bowel sounds, nontender, no hepatosplenomegaly Extremities-left foot heavily bandaged Neuro-cranial nerves II through XII intact, motor and sensory function within normal limits, strength symmetrical , no focal deficits Psych-normal affect, normal mood Results & Data Results & Data Vital Signs (Past 12 Hours) Vital Signs Temp Pulse Pulse Resp BP BP Pulse Ox 01/03/23 15:48 36.4 C L 68 18 150/77 H 98 01/03/23 12:40 36.5 C 68 128/70 01/03/23 12:30 68 138/58 L 01/03/23 12:45 36.7 C 72 21 158/77 H 98 01/03/23 12:00 70 154/61 H 01/03/23 11:30 67 109/60 01/03/23 11:00 69 162/57 H 01/03/23 10:30 70 144/88 H 01/03/23 10:00 68 168/60 H 01/03/23 09:13 36.4 C L 64 01/03/23 08:30 01/03/23 07:34 36.4 C L 63 20 144/71 H 97 O2 Del Method 01/03/23 15:48 Room Air 01/03/23 12:40 01/03/23 12:30 01/03/23 12:45 Room Air 01/03/23 12:00 01/03/23 11:30 01/03/23 11:00 01/03/23 10:30 01/03/23 10:00 01/03/23 09:13 01/03/23 08:30 Room Air 01/03/23 07:34 Room Air Laboratory Results 01/03/23 06:02 01/03/23 06:02 PG Care Time/CCT Total # of Minutes Spent Total Time Spent with Patient: Total time spent is greater than 50% in coordination of care (as documented) at patient's floor/unit and/or counseling patient: Coding Level of Care Code 17061 SUB INP/OBS CARE 3/50MIN Diagnoses Open wound of left foot S91.302A Encounter type: initial encounter PAD (peripheral artery disease) I73.9 ESRD (end stage renal disease) on dialysis N18.6; Z99.2 DM II (diabetes mellitus, type II), controlled E11.9 HTN (hypertension) I10 CAD (coronary artery disease) I25.10 Anemia D64.9 Hyperlipidemia E78.5 Hypothyroidism E03.9 DVT prophylaxis Z29.9 Depression F32.A (1) Open wound of left foot Encounter type: initial encounter Qualified Code(s): S91.302A - Unspecified open wound, left foot, initial encounter
--- NOTE | 2023-01-03 19:56 | Orthopedic Progress Note ---
Date of Service January 03, 2023 Assessment & Plan (1) Open wound of left foot: Plan: Patient seen, evaluated and treated. Patient status post Day #4 TMA left foot (DOS: 12/30/22) She is status post day#1 delayed primary closure (DOS 01/02/23) Dressing change with out incident. Patient non weight bearing left foot. Awaiting discharge to SNF. Will continue to follow while in house. Admission and Anticipated Discharge Date Admission Date: December 25, 2022 Subjective Patient seen at bedside. No complaints. She is status post day#1 delayed primary closure (DOS 01/02/23) Physical Exam Constitutional: + frail appearing, cooperative and comfortable Eyes: normal visual todd by confrontation Respiratory: normal respiratory effort Cardiovascular: Rate/Rhythm: regular rate and regular rhythm Musculoskeletal: Extremities: + foot abnormality (TMA amputation) Skin: + wound (Left foot) Neurologic: moves all extremities (Absent epicritic sensation ) Psychiatric: Orientation: alert and oriented x 3 Results & Data Vital Signs (Past 12 Hours) Vital Signs Temp Pulse Pulse Pulse Resp BP BP 01/03/23 19:07 36.8 C 78 20 147/74 H 01/03/23 15:48 36.4 C L 68 18 150/77 H 01/03/23 12:40 36.5 C 68 128/70 01/03/23 12:30 68 138/58 L 01/03/23 12:45 36.7 C 72 21 158/77 H 01/03/23 12:00 70 154/61 H 01/03/23 11:30 67 109/60 01/03/23 11:00 69 162/57 H 01/03/23 10:30 70 144/88 H 01/03/23 10:00 68 168/60 H 01/03/23 09:13 36.4 C L 64 01/03/23 08:30 Pulse Ox O2 Del Method 01/03/23 19:07 96 Room Air 01/03/23 15:48 98 Room Air 01/03/23 12:40 01/03/23 12:30 01/03/23 12:45 98 Room Air 01/03/23 12:00 01/03/23 11:30 01/03/23 11:00 01/03/23 10:30 01/03/23 10:00 01/03/23 09:13 01/03/23 08:30 Room Air (1) Open wound of left foot Encounter type: initial encounter Qualified Code(s): S91.302A - Unspecified open wound, left foot, initial encounter
[2023-01-03] MEDS: LATANOPROST 0.005% OP SOLN 2.5 ML BTL OP SCH (21:40)
[2023-01-03] MEDS: ATORVASTATIN 40 MG TAB PO SCH (21:43)
[2023-01-03] MEDS: ISOSORBIDE MONO EXTENDED REL 30 MG TABCR PO SCH (21:44)
[2023-01-03] MEDS: AMITRIPTYLINE HCL 100 MG TAB PO SCH (21:44)
[2023-01-03] MEDS: ZOLPIDEM TARTRATE 5 MG TAB PO SCH (21:49)
[2023-01-04] MEDS: LEVOTHYROXINE SODIUM 125 MCG TABLET PO SCH (05:14)
[2023-01-04] MEDS: INSULIN ASPART PER UNIT CHARGE SC SCH ×4 (07:43→22:09)
[2023-01-04] MEDS: lisinopril 40 MG TAB PO SCH (07:44)
[2023-01-04] MEDS: METOPROLOL TARTRATE 50 MG TAB PO SCH ×2 (07:44→22:43)
[2023-01-04] MEDS: PANTOprazole 40 MG TAB PO SCH (07:44)
[2023-01-04] MEDS: POLYETHYLENE (MIRALAX) 17 GM PACK PO SCH ×2 (07:45→22:45)
[2023-01-04] MEDS: SENNA 8.6 MG TAB PO SCH ×2 (07:45→22:47)
[2023-01-04] MEDS: amLODIPine BESYLATE 5 MG TAB PO SCH (07:46)
[2023-01-04] MEDS: SEVELAMER HCL 800 MG TABLET PO SCH ×3 (07:46→16:58)
[2023-01-04] MEDS: allopurinoL 100 MG TAB PO SCH (07:47)
[2023-01-04] MEDS: CEROVITE ADV FORMULA TAB PO SCH (07:47)
[2023-01-04] MEDS: LORATADINE 10 MG TAB PO SCH (07:47)
[2023-01-04] MEDS: FUROSEMIDE 40 MG TAB PO SCH (07:48)
[2023-01-04] MEDS: CLOPIDOGREL BISULFATE 75 MG TAB PO SCH (07:49)
[2023-01-04] MEDS: ASPIRIN 81 MG CHEW PO SCH (07:51)
[2023-01-04] MEDS: cloNIDine HCL 0.1 MG TAB PO SCH (07:51)
[2023-01-04 07:53] LABS: Basophils # (auto) 0.02 K/uL (0-0.2); Basophils % (auto) 0.3 %; Eosinophils # (auto) 0.14 K/uL (0-0.50); Eosinophils % (auto) 1.8 %; Hematocrit (blood only) 23.3 % (37.0-47.0); Hemoglobin 7.4 g/dl (12.0-16.0); Immature Granulocytes # (auto) 0.04 K/uL (0.01-0.20); Immature Granulocytes % (auto) 0.5 %; Lymphocytes # (auto) 1.22 K/uL (1.2-3.4); Lymphocytes % (auto) 15.4 %; Mean Corpuscular Hemoglobin 31.5 pg (25.0-34.0); Mean Corpuscular Hgb Conc 31.8 g/dL (32.0-36.0); Mean Corpuscular Volume 99.1 fL (80.0-100.0); Mean Platelet Volume 11.2 fL (9.4-12.4); Monocytes # (auto) 0.65 K/uL (0.11-0.59); Monocytes % (auto) 8.2 %; Neutrophils # (auto) 5.83 K/uL (1.40-6.50); Neutrophils % (auto) 73.8 %; Nucleated RBC # (auto) 0.05 K/uL (0-0.12); Nucleated RBC % (auto) 0.6 %; Platelet Count 215 K/uL (130-400); RDW Coefficient of Variation 14.2 % (11.5-14.5); RDW Standard Deviation 49.9 fL (36.4-46.3); Red Blood Count 2.35 M/uL (4.20-5.40)
[2023-01-04 08:17] LABS: BUN Creatinine Ratio 5.2 (10-20); Calcium 9.3 mg/dl (8.6-10.3); Creatinine Clr Calc Pharmacy 13.5 ml/min; Est GFR (African American) 15.7 ml/min; Est GFR (Non-African American) 13.5 ml/min; Potassium 4.2 mmol/L (3.5-5.1)
[2023-01-04 08:29] LABS: Polychromasia 1+
--- NOTE | 2023-01-04 08:52 | Nephrology Progress Note ---
Date of Service January 04, 2023 Assessment & Plan (1) ESRD (end stage renal disease) on dialysis: Plan: * Volume status and electrolyte balance are acceptable this morning * Will schedule next HD for am * Outpatient HD [facility] Ha (3 hours, F-180NR, Qb 400/Qd 500, 2K, 35 HCO3, 137 Na, EDW 58 kg). * Recommend renal diet, daily fluid restriction of 1.5 L * Continue Sevelamer QAC (2) HTN (hypertension): Plan: * BP is acceptable * Continue lisinopril, clonidine, metoprolol, Imdur, and amlodipine (3) Anemia: Plan: * Hgb 7.4 this am. Will order 1 U PRBC with HD tomorrow * Will provide AUGIE w/ HD tomorrow (4) Open wound of left foot: Plan: * L foot wound irrigation and application of wound vac 12/26/22 * s/p L TMA 12/30/22 * MANAGER POST w/ WILLIAM of L SFA 12/31/22 * L foot wound wash out 01/02/23 Admission and Anticipated Discharge Date Admission Date: December 25, 2022 Subjective Mrs. Hudson was evaluated in her hospital room this morning. She c/o discomfort at her surgical site but voices no other concerns Review of Systems Constitutional: no fever Eyes: no worsening vision Ear, Nose, Mouth, Throat: no problem reported Respiratory: no cough and no dyspnea Cardiovascular: no chest pain Gastrointestinal: no abdominal pain, no nausea, no vomiting and no diarrhea/loose stools Physical Exam Constitutional: not in distress Eyes: PERRL, conjunctivae normal, anicteric sclerae ENMT: external ear and nose normal, oropharynx normal Neck: trachea midline, no thyromegaly Respiratory: normal respiratory effort, lungs clear to auscultation Cardiovascular: RRR, no murmur, no edema Extremities: + AV fistula (R BC AVF + bruit) Gastrointestinal (Abdomen): normal bowel sounds, soft, nontender, no hepatosplenomegaly Neurologic: Speech / Cognition: normal speech and normal cognition Results & Data Vital Signs (Past 12 Hours) Vital Signs Temp Pulse Pulse Pulse Resp BP Pulse Ox 01/04/23 07:17 36.7 C 62 18 146/66 H 96 01/03/23 23:34 71 01/03/23 22:17 36.9 C 68 16 149/72 H 96 01/03/23 22:00 O2 Del Method 01/04/23 07:17 Room Air 01/03/23 23:34 01/03/23 22:17 Room Air 01/03/23 22:00 Room Air Laboratory Results Laboratory Tests 01/04/23 01/04/23 07:17 07:17 WBC 7.90 Hgb 7.4 L Hct 23.3 L Plt Count 215 Sodium 139 Potassium 4.2 Chloride 105 Carbon Dioxide 28 BUN 18 Creatinine 3.46 H D Glucose 97 Calcium 9.3 PG Care Time/CCT Total # of Minutes Spent Total Time Spent with Patient: Total time spent is greater than 50% in coordination of care (as documented) at patient's floor/unit and/or counseling patient: Coding Level of Care Code 25501 SUB INP/OBS CARE 3/50MIN Diagnoses ESRD (end stage renal disease) on dialysis N18.6; Z99.2 HTN (hypertension) I10 Anemia D64.9 Open wound of left foot S91.302A Encounter type: initial encounter (4) Open wound of left foot Encounter type: initial encounter Qualified Code(s): S91.302A - Unspecified open wound, left foot, initial encounter
[2023-01-04] MEDS: HEPARIN SOD 5,000 UNIT/0.5 ML VIAL SQ SCH ×2 (09:23→22:40)
[2023-01-04] MEDS: AMPICILLIN/SULBACTAM SOD 3,000 MG in 0.9 % SODIUM CHLORIDE 100 ML IV SCH (09:23)
[2023-01-04] MEDS ORDERED: SODIUM CHLORIDE 0.9% 250 ML IV PRN (10:02)
[2023-01-04] MEDS: oxyCODONE HCL IR 5 MG TAB (IMMEDIATE RELEASE) PO PRN ×2 (11:53→22:40)
[2023-01-04] MEDS ORDERED: bisacodyL 10 MG SUPP PR STA (12:57)
--- NOTE | 2023-01-04 14:40 | Hospitalist Progress Note ---
Date of Service January 04, 2023 Assessment & Plan (1) Open wound of left foot: Plan: Acute wound infection of left foot complicated by diabetes, PAD, and ESRD. Cultures from 26 December obtained in OR and 25 December obtained on admission - E. coli and MSSA. Currently on day #8 of Unasyn. Completed 2 days of Cefepime and Vancomycin prior to Abx change. S/p left foot transmetatarsal amputation by Podiatry on 12/30, postoperative day #5. Delayed primary wound closure complete on 01/02, postoperative day #2. S/p angio with balloon/stenting to left proximal/mid SFA disease 12/31, also noted to have small diffuse disease in pedal vessels. Continue wound care (2) PAD (peripheral artery disease): Plan: s/p Angio as above. Continue ASA/Plavix (3) ESRD (end stage renal disease) on dialysis: Plan: Receives hemodialysis every Tuesday. AV fistula in right upper arm. Continue sevelamer. Appreciate nephrology consultation and management. She will receive 1 unit packed red blood cells with hemodialysis tomorrowJanuary 05 (4) DM II (diabetes mellitus, type II), controlled: Plan: ADA diet. Sliding scale coverage. Continue current medical management. Hbg A1c 5.6% in November 2022. (5) HTN (hypertension): Plan: Stable. Continue current medical plan with amlodipine, clonidine, Imdur, lisinopril, and metoprolol. (6) CAD (coronary artery disease): Plan: stable. Cont asa, Plavix, BB, statin, Imdur (7) Anemia: Plan: Anemia of chronic disease 2nd to ESRD. Iron studies recently sent by Nephrology - FE 50, TIBC 184, Unsat IBC 134, Ferritin 795. S/p Venofer. Serial labs . She will receive 1 unit packed red blood cells with hemodialysis tomorrowJanuary 05 (8) Hyperlipidemia: Plan: Stable. Continue statin. (9) Hypothyroidism: Plan: TSH in 11/2022 was WNL. Continue Synthroid. (10) DVT prophylaxis: Plan: Heparin 5000 BID (11) Depression: Plan: Patient voices no concerns of depression or suicide ideations at this time, but does have depressed affect Plan Probable discharge to [facility] in [place] when arrangements are finalized. Hopefully tomorrow, January 05. She will not require ongoing parent eral antibiotics at discharge Admission and Anticipated Discharge Date Admission Date: December 25, 2022 Subjective Alert and oriented. No new problems. Unasyn day 8. Postoperative day #5 after left foot transmetatarsal amputation. Day 2 after left foot delayed primary closure. Hemoglobin noted to be 7.4 today. She will receive 1 unit packed red blood cells with hemodialysis tomorrow, January 05. Anticipate eventual discharge to [facility]. She is medically stable. She will not require intravenous antibiotics at the time of discharge Review of Systems Review of Systems: Constitutional-no fever or chills ENT-no blurred vision, no double vision, no epistaxis, no sore throat Respiratory-no cough, no wheezing, no shortness of breath Cardiac-no palpitations, no chest pain, no syncope GI-no nausea, vomiting, diarrhea, melena, hematochezia -no urinary retention, no urinary incontinence, no dysuria, no hematuria Musculoskeletal-no joint pain, no muscle tenderness Skin-no bruising, no rashes, no pruritus Neuro-no isolated weakness, no paresthesia, no weakness Psych-no depression, no anxiety Physical Exam Physical Exam: General-awake but mildly lethargic. No fever HEENT-head atraumatic and normocephalic, pupils equal and reactive to light, extraocular muscles intact Neck-no lymphadenopathy or thyromegaly, trachea midline Chest-clear to auscultation percussion. No rales wheezing or rhonchi Cardiac-regular rate and rhythm, normal S1 and S2 Abdomen-normal bowel sounds, nontender, no hepatosplenomegaly Extremities-left foot heavily bandaged Neuro-cranial nerves II through XII intact, motor and sensory function within normal limits, strength symmetrical , no focal deficits Psych-normal affect, normal mood Results & Data Results & Data Vital Signs (Past 12 Hours) Vital Signs Temp Pulse Pulse Pulse Resp BP Pulse Ox 01/04/23 11:11 36.5 C 59 L 17 145/71 H 98 01/04/23 10:37 01/04/23 09:18 61 01/04/23 07:17 36.7 C 62 18 146/66 H 96 O2 Del Method 01/04/23 11:11 Room Air 01/04/23 10:37 Room Air 01/04/23 09:18 01/04/23 07:17 Room Air Laboratory Results 01/04/23 07:17 01/04/23 07:17 PG Care Time/CCT Total # of Minutes Spent Total Time Spent with Patient: Total time spent is greater than 50% in coordination of care (as documented) at patient's floor/unit and/or counseling patient: Coding Level of Care Code 84056 SUB INP/OBS CARE 3/50MIN Diagnoses Open wound of left foot S91.302A Encounter type: initial encounter PAD (peripheral artery disease) I73.9 ESRD (end stage renal disease) on dialysis N18.6; Z99.2 DM II (diabetes mellitus, type II), controlled E11.9 HTN (hypertension) I10 CAD (coronary artery disease) I25.10 Anemia D64.9 Hyperlipidemia E78.5 Hypothyroidism E03.9 DVT prophylaxis Z29.9 Depression F32.A (1) Open wound of left foot Encounter type: initial encounter Qualified Code(s): S91.302A - Unspecified open wound, left foot, initial encounter
[2023-01-04] MEDS: ACETAMINOPHEN 325 MG TAB PO PRN (22:41)
[2023-01-04] MEDS: ZOLPIDEM TARTRATE 5 MG TAB PO SCH (22:42)
[2023-01-04] MEDS: ISOSORBIDE MONO EXTENDED REL 30 MG TABCR PO SCH (22:42)
[2023-01-04] MEDS: AMITRIPTYLINE HCL 100 MG TAB PO SCH (22:44)
[2023-01-04] MEDS: LATANOPROST 0.005% OP SOLN 2.5 ML BTL OP SCH (22:46)
[2023-01-04] MEDS: ATORVASTATIN 40 MG TAB PO SCH (22:48)
[2023-01-05] MEDS: LEVOTHYROXINE SODIUM 125 MCG TABLET PO SCH (05:09)
[2023-01-05] MEDS ORDERED: EPOETIN ALFA 10,000 UNITS/ML VIAL IV ONE (07:00)
[2023-01-05] MEDS ORDERED: SODIUM CHLORIDE 0.9% 1000ML 1,000 ML IV PRN (07:00)
[2023-01-05] MEDS: INSULIN ASPART PER UNIT CHARGE SC SCH ×2 (07:55→12:09)
[2023-01-05] MEDS: SEVELAMER HCL 800 MG TABLET PO SCH ×2 (07:55→12:05)
[2023-01-05 08:14] LABS: Hematocrit (blood only) 21.3 % (37.0-47.0); Hemoglobin 6.8 g/dl (12.0-16.0); Mean Corpuscular Hemoglobin 32.1 pg (25.0-34.0); Mean Corpuscular Hgb Conc 31.9 g/dL (32.0-36.0); Mean Corpuscular Volume 100.5 fL (80.0-100.0); Mean Platelet Volume 10.7 fL (9.4-12.4); Nucleated RBC # (auto) 0.04 K/uL (0-0.12); Nucleated RBC % (auto) 0.6 %; Platelet Count 191 K/uL (130-400); RDW Coefficient of Variation 14.6 % (11.5-14.5); RDW Standard Deviation 50.4 fL (36.4-46.3); Red Blood Count 2.12 M/uL (4.20-5.40); White Blood Count 6.27 K/ul (4.8-10.8)
[2023-01-05 08:32] LABS: Basophilic Stippling 1+; Basophils # (auto) 0.03 K/uL (0-0.2); Basophils % (auto) 0.5 %; Eosinophils # (auto) 0.18 K/uL (0-0.50); Eosinophils % (auto) 2.9 %; Immature Granulocytes # (auto) 0.02 K/uL (0.01-0.20); Immature Granulocytes % (auto) 0.3 %; Lymphocytes # (auto) 1.81 K/uL (1.2-3.4); Lymphocytes % (auto) 28.9 %; Monocytes # (auto) 0.45 K/uL (0.11-0.59); Monocytes % (auto) 7.2 %; Neutrophils # (auto) 3.78 K/uL (1.40-6.50); Neutrophils % (auto) 60.2 %; Polychromasia 1+
--- NOTE | 2023-01-05 08:50 | Nephrology Progress Note ---
Date of Service January 05, 2023 Assessment & Plan (1) ESRD (end stage renal disease) on dialysis: Plan: * Will provide HD today. Orders have been entered into EMR and HD notified * Outpatient HD [facility] (3 hours, F-180NR, Qb 400/Qd 500, 2K, 35 HCO3, 137 Na, EDW 58 kg). * Recommend renal diet, daily fluid restriction of 1.5 L * Continue Sevelamer QAC (2) HTN (hypertension): Plan: * BP is acceptable * Continue lisinopril, clonidine, metoprolol, Imdur, and amlodipine (3) Anemia: Plan: * Hgb 6.8 this am. Will change transfusion order to 2 U PRBC with HD today * Will provide AUGIE w/ HD today (4) Open wound of left foot: Plan: * L foot wound irrigation and application of wound vac 12/26/22 * s/p L TMA 12/30/22 * RECORD CHANGER TESTER w/ WILLIAM of L SFA 12/31/22 * L foot wound wash out 01/02/23 Admission and Anticipated Discharge Date Admission Date: December 25, 2022 Subjective Mrs. Hudson was evaluated prior to HD this morning. She received Ambien last evening and remains lethargic. She voiced no medical concerns Review of Systems Constitutional: no fever Eyes: no worsening vision Ear, Nose, Mouth, Throat: no problem reported Respiratory: no cough and no dyspnea Cardiovascular: no chest pain Gastrointestinal: no abdominal pain, no nausea, no vomiting and no diarrhea/loose stools Physical Exam Constitutional: not in distress Eyes: PERRL, conjunctivae normal, anicteric sclerae ENMT: external ear and nose normal, oropharynx normal Neck: trachea midline, no thyromegaly Respiratory: normal respiratory effort, lungs clear to auscultation Cardiovascular: RRR, no murmur, no edema Extremities: + AV fistula (R BC AVF + bruit) Gastrointestinal (Abdomen): normal bowel sounds, soft, nontender, no hepatosplenomegaly Neurologic: Speech / Cognition: normal speech and normal cognition Results & Data Vital Signs (Past 12 Hours) Vital Signs Temp Pulse Pulse Resp BP BP Pulse Ox 01/05/23 08:44 36.5 C 52 L 16 116/68 01/05/23 07:59 36.5 C 52 L 17 123/61 99 01/04/23 22:30 69 01/04/23 22:17 36.7 C 106 H 20 151/50 H 91 01/04/23 22:51 O2 Del Method 01/05/23 08:44 01/05/23 07:59 Room Air 01/04/23 22:30 01/04/23 22:17 Room Air 01/04/23 22:51 Room Air Laboratory Results Laboratory Tests 01/05/23 01/05/23 07:32 07:32 WBC 6.27 Hgb 6.8 L* Hct 21.3 L Plt Count 191 Sodium 136 Potassium 4.6 Chloride 103 Carbon Dioxide 28 BUN 31 H Creatinine 4.72 H* D Glucose 105 H PG Care Time/CCT Total # of Minutes Spent Total Time Spent with Patient: Total time spent is greater than 50% in coordination of care (as documented) at patient's floor/unit and/or counseling patient: Coding Level of Care Code 94798 SUB INP/OBS CARE 3/50MIN Diagnoses ESRD (end stage renal disease) on dialysis N18.6; Z99.2 HTN (hypertension) I10 Anemia D64.9 Open wound of left foot S91.302A Encounter type: initial encounter (4) Open wound of left foot Encounter type: initial encounter Qualified Code(s): S91.302A - Unspecified open wound, left foot, initial encounter
[2023-01-05 09:10] LABS: BUN Creatinine Ratio 6.6 (10-20); Calcium 9.2 mg/dl (8.6-10.3); Creatinine Clr Calc Pharmacy 9.9 ml/min; Est GFR (African American) 10.8 ml/min; Est GFR (Non-African American) 9.3 ml/min; Potassium 4.6 mmol/L (3.5-5.1)
[2023-01-05] MEDS ORDERED: SODIUM CHLORIDE 0.9% 250 ML IV PRN ×2 (09:17→09:22)
--- NOTE | 2023-01-05 11:26 | Discharge Summary ---
Date of Service January 05, 2023 Admission HPI Per Admitting Provider Jacqui Hudson is a 62 year old female with end stage renal disease on dialysis who presents ot the ER on advice of her service delivery supervisor for infected left foot wound. She denies any fever or chills. She was recently hospitalized from November 12 - 2022 due to osteomyelitis of her left foot. On November 15 she underwent left 5th ray amputation, application of wound vac dressing, subsequently on November 17 she underwent left foot delayed primary closure performed by Dr Dias. She was referred to the emergency department today and recommend requiring a debridement under anesthesia. She denies any shortness of breath or chest pain. Principal Diagnosis Peripheral vascular insufficiency left lower extremity, status post left transmetatarsal amputation left foot, left foot cellulitis Discharge Exam General-awake but mildly lethargic. No fever HEENT-head atraumatic and normocephalic, pupils equal and reactive to light, extraocular muscles intact Neck-no lymphadenopathy or thyromegaly, trachea midline Chest-clear to auscultation percussion. No rales wheezing or rhonchi Cardiac-regular rate and rhythm, normal S1 and S2 Abdomen-normal bowel sounds, nontender, no hepatosplenomegaly Extremities-left foot heavily bandaged Neuro-cranial nerves II through XII intact, motor and sensory function within normal limits, strength symmetrical , no focal deficits Psych-normal affect, normal mood Discharge Data Allergies Allergy/AdvReac Type Severity Reaction Status Date / Time morphine Allergy Severe Hallucinati Unverified 12/25/22 15:17 ng codeine Allergy Intermediate Redness of Unverified 12/25/22 15:17 Skin prednisone Allergy Intermediate Itching Unverified 12/25/22 15:17 Consultations 12/25/22 16:27 ED Decision to Admit Stat 12/25/22 19:05 Consult Nephrology Routine 12/25/22 21:58 Consult Podiatry Routine 12/27/22 15:08 Consult Wound Care Provider Routine 12/29/22 07:35 Consult Cardiology Routine Procedures Performed Operation Date: 01/02/23 09:30 Actual Procedures p Left Foot Wash Out and Delayed Primary Closure(Left) - Yong Dias, JEFFRY, MS Ordered Studies 12/29/22 US ankle/brachial index ltd Routine 12/29/22 08:19 MR foot LT w/o con Urgent 12/31/22 13:43 CL Cath Imgs for PACS use only Stat Hospital Course (1) Open wound of left foot: Acute wound infection of left foot complicated by diabetes, PAD, and ESRD. Cu ltures from 26 December obtained in OR and 25 December obtained on admission - E. coli and MSSA. Currently on day #9 of Unasyn which will be discontinued today. Completed 2 days of Cefepime and Vancomycin prior to Abx change. S/p left foot transmetatarsal amputation by Podiatry on 12/30, postoperative day #6. Delayed primary wound closure complete on 01/02, postoperative day #3. S/p angio with balloon/stenting to left proximal/mid SFA disease 12/31, also noted to have small diffuse disease in pedal vessels. Continue wound care (2) PAD (peripheral artery disease): s/p Angio as above. Continue ASA/Plavix (3) ESRD (end stage renal disease) on dialysis: Receives hemodialysis every Tuesday. AV fistula in right upper arm. Continue sevelamer. Appreciate nephrology consultation and management. She will receive 1 unit packed red blood cells with hemodialysis today on January 05 (4) DM II (diabetes mellitus, type II), controlled: ADA diet. Sliding scale coverage. Continue current medical management. Hbg A1c 5.6% in November 2022. (5) HTN (hypertension): Stable. Continue current medical plan with amlodipine, clonidine, Imdur, lisinopril, and metoprolol. (6) CAD (coronary artery disease): stable. Cont asa, Plavix, BB, statin, Imdur (7) Anemia: Anemia of chronic disease 2nd to ESRD. Iron studies recently sent by Nephrology - FE 50, TIBC 184, Unsat IBC 134, Ferritin 795. S/p Venofer. Serial labs . She will receive 1 unit packed red blood cells with hemodialysis today on January 05 (8) Hyperlipidemia: Stable. Continue statin. (9) Hypothyroidism: TSH in 11/2022 was WNL. Continue Synthroid. (10) DVT prophylaxis: Heparin 5000 BID while hospitalized (11) Depression: Patient voices no concerns of depression or suicide ideations at this time, but does have depressed affect Plan Discharge to [facility] today, January 05 Total Time Total Time Spent Total Time Spent (In Minutes): 45-minute Discharge Plan Discharge Items Patient Disposition: Transfer [facility] Reason For Visit: INFECTED WOUND Discharge Diagnosis: Peripheral vascular insufficiency left lower extremity, left foot cellulitis, status post left foot transmetatarsal amputation Condition on Discharge: Fair Activity: Per Instructions section Activity Comment: Nonweightbearing left foot Non-emergency contact: Primary Care Provider Call non-emergency contact if: you have any medication questions and your symptoms worsen Follow-up/Referrals: Christina Alcantar PA-C [Primary Care Provider] - Diet: Dialysis Renal Addtl Attending Provider Instructions: Antibiotic therapy was completed while hospitalized. Follow-up with service delivery supervisor who did the foot surgery in 7 to 10 days Pending Studies at Discharge: No Stand-Alone Forms: My [facility] Skilled Items Patient informed of condition?: Yes DNR: Yes Discharge Level of Care: Skilled Communicable Disease: No Discharge Prognosis: Stable Lines: None Urinary Catheter: No Medications and DC Order Prescriptions: New acetaminophen 325 mg Tablet 650 mg PO Q4H PRN (Reason: fever or pain) Qty: 0 0RF sennosides [Senokot] 8.6 mg Tablet 17.2 mg PO BID Qty: 0 0RF Continued furosemide [Lasix] 40 mg tablet 40 mg PO DAILY latanoprost 0.005 % drops 1 drp ophthalmic (eye) HS atorvastatin [Lipitor] 40 mg tablet 40 mg PO HS clonidine HCl 0.1 mg tablet 0.1 mg PO DAILY isosorbide mononitrate 30 mg tablet extended release 24 hr 30 mg PO HS amlodipine 2.5 mg tablet 2.5 mg PO DAILY clopidogrel 75 mg tablet 75 mg PO DAILY allopurinol 100 mg tablet 100 mg PO DAILY esomeprazole magnesium [Nexium] 40 mg capsule,delayed release(DR/EC) 40 mg PO DAILY levothyroxine 125 mcg tablet 125 mcg PO QAM metoprolol tartrate 50 mg tablet See Rx Instructions .ROUTE .COMPLEX Rx Instructions: Take 50mg by mouth in the morning and 100mg by mouth at bedtime nitroglycerin 0.4 mg tablet, sublingual See Rx Instructions .ROUTE .COMPLEX Rx Instructions: Take 1 tablet by mouth every 5 minutes X3 for chest pain as needed aspirin 81 mg tablet,chewable 81 mg PO DAILY zolpidem [Ambien] 5 mg tablet 5 mg PO HS albuterol sulfate 90 mcg/actuation HFA aerosol inhaler 1 puff INHALATION QID PRN (Reason: bad cough) lisinopril [Zestril] 40 mg tablet 40 mg PO DAILY loratadine 10 mg tablet 10 mg PO DAILY ezetimibe 10 mg tablet 10 mg PO DAILY sevelamer carbonate 800 mg tablet 800 mg PO TID cholecalciferol (vitamin D3) 50 mcg (2,000 unit) tablet 50 mcg PO DAILY Prolia 60 mg/mL syringe 60 mg SUBCUT Q6M melatonin 10 mg capsule 10 mg PO HS ascorbic acid (vitamin C) 500 mg capsule 500 mg PO DAILY RenaPlex-D 800 mcg-12.5 mg -2,000 unit tablet 1 tab PO DAILY docusate sodium [Colace] 100 mg Capsule 100 mg PO DAILY PRN (Reason: Constipation) amitriptyline 100 mg tablet 100 mg PO HS oxycodone 5 mg tablet 5 mg PO Q4H Qty: 20 0RF Rx Instructions: 1 tab (5mg) q4h prn pain scale 4-6 2 tabs (10mg) q4h prn pain scale 7-10 insulin aspart U-100 [Novolog FlexPen U-100 Insulin] 100 unit/mL (3 mL) Insulin Pen 2 sliding scale dose SUBCUT .TIDWMEALS Discharge Orders: Discharge Order (Routine); Ordered 01/05/23 Ordered By: Julian Betancourt Admission Data Admit Date/Time: 12/25/22 16:17 Attending Provider: Julian Betancourt Admit Provider: Albaro Franks Primary Care Provider: Christina Alcantar Other Providers: Yong Dias ; Albaro Oneil Jonathan M. ; Jass Mckeon ; Mitul Campbell Coding Level of Care Code 63750 INP/OBS DISCH >30 MIN Diagnoses Open wound of left foot S91.302A Encounter type: initial encounter PAD (peripheral artery disease) I73.9 ESRD (end stage renal disease) on dialysis N18.6; Z99.2 DM II (diabetes mellitus, type II), controlled E11.9 HTN (hypertension) I10 CAD (coronary artery disease) I25.10 Anemia D64.9 Hyperlipidemia E78.5 Hypothyroidism E03.9 DVT prophylaxis Z29.9 Depression F32.A
[2023-01-05] MEDS: METOPROLOL TARTRATE 50 MG TAB PO SCH (11:59)
[2023-01-05] MEDS: POLYETHYLENE (MIRALAX) 17 GM PACK PO SCH (11:59)
[2023-01-05] MEDS: allopurinoL 100 MG TAB PO SCH (12:05)
[2023-01-05] MEDS: FUROSEMIDE 40 MG TAB PO SCH (12:05)
[2023-01-05] MEDS: SENNA 8.6 MG TAB PO SCH (12:06)
[2023-01-05] MEDS: HEPARIN SOD 5,000 UNIT/0.5 ML VIAL SQ SCH (12:06)
[2023-01-05] MEDS: CLOPIDOGREL BISULFATE 75 MG TAB PO SCH (12:06)
[2023-01-05] MEDS: amLODIPine BESYLATE 5 MG TAB PO SCH (12:07)
[2023-01-05] MEDS: LORATADINE 10 MG TAB PO SCH (12:07)
[2023-01-05] MEDS: PANTOprazole 40 MG TAB PO SCH (12:07)
[2023-01-05] MEDS: CEROVITE ADV FORMULA TAB PO SCH (12:08)
[2023-01-05] MEDS: lisinopril 40 MG TAB PO SCH (12:08)
[2023-01-05] MEDS: ASPIRIN 81 MG CHEW PO SCH (12:12)
[2023-01-05] MEDS: cloNIDine HCL 0.1 MG TAB PO SCH (12:12)
== END 2023-01-05 15:18 | DRG 617 ==
LOC: ED 12:05 → SUATTDRO 16:17 → 3W 16:17 → 2S 12-31 16:01
PROC: CLB.AEU (2022-12-31 12:00)

== ENCOUNTER 2023-05-06 12:56 | Inpatient (IN) ==
--- OUTSIDE RECORDS SUMMARY | 2023-05-06 13:01 | External Medical Summary | Summary of Care ---
Author Name Unknown Organization [facility] Address [address] [place] [address] Phone [phone] Care Team Providers Care Human Intelligence Name Role Phone Manolo Soares PA-C Primary Care Provider Reason for Visit * Reason Comments Outpatient Testing Encounter Details Date Type Department Care Team (Late st Contact Info) Description 04/18/2023 9:20 AM EST Laboratory Lab Mobile Phlebotomy [facility] [place] [address], [place] [id number] [facility] [place] [address] [place] [address] Arrived Social History Tobacco Use Types Packs/Day Years Used Date Smoking Tobacco: Never Assessed Sex and Gender Information Value Date Recorded Sex Assigned at Not on file Gender Identity Not on file Sexual Orientation Not on file documented as of this encounter Plan of Treatment Pending Results Name Type Priority Associated Diagnoses Date /Time PHOSPHORUS Lab Routine 04/18/2023 5:5 5 AM EST Health Maintenance Due Date Last Done Comments Lipid Panel 1961 Depression Screening 1973 HIV Screening 1976 Hepatitis C Screening 1979 DTaP,Tdap,and Td Vaccines (1 - Tdap) 1980 Pap Smear 1982 Cervical Cancer Screening 1991 HPV/Co-Test 1991 Cologuard 2006 Colonoscopy 2006 Colorectal Cancer Screening 2006 Fecal Occult Blood Test 2006 Sigmoidoscopy 2006 Zoster Vaccines (1 of 2) 2011 Mammogram 12/27/2015 12/26/2014, 11/20/2013 COVID-19 Vaccine (2 - 2022-2 4 season) 2023 04/16/2022 Influenza Vaccine (FLU shot) (#1) 2023 05/13/2015 GARDASIL-HPV IMMUNIZATION SERIES Aged Out No longer eligible b ased on patient's age to complete this topic Hepatitis B Aged Out No longer eligi ble based on patient's age to complete this topic MENINGOCOCCAL (MENACTRA/MENVEO) Aged Out No longer eligible b ased on patient's age to complete this topic Pneumococcal Vaccine: Pediatrics (0 to 5 Years) and At-Risk Patients (6 to 64 Years) Aged Out No longer eligible b ased on patient's age to complete this topic documented as of this encounter Medical Devices Not on filedocumented as of this encounter Care Teams Human Intelligence Relationship Specialty Start Date End Date Manolo Soares PA-C PCP - General Physician Cold Meat Chef 12/26/14 documented as of this encounter
--- OUTSIDE RECORDS SUMMARY | 2023-05-06 13:02 | External Medical Summary | Continuity Of Care Document ---
Author Name Unknown Address [address] [place] [address] Organization [facility] () Care Team Providers Care Director Employee Communications Name Role Phone Sue Lafleur Primary Care Provider [phone] Problems Code Description Start Date End Date Status M86.9 Osteomyelitis, unspecified 11/22/2022 0 Active R26.2 Difficulty in walking, not elsewhere classified 11/22/2022 Active D64.9 Anemia, unspecified 11/22/2022 Activ e R53.1 Weakness 11/22/2022 Active I25.10 Atherosclerotic hear t disease of [place] coronary artery without angina pectoris 11/22/2022 Active N18.6 End stage renal disease 11/22/2022 A ctive I10. Essential (primary) hypertension 11/22/2022 Active E53.8 Deficiency of other specified B group vitamins 11/22/2022 Active E03.9 Hypothyroidism, unspecified 11/22/2022 00 Active E11.621 Type 2 diabetes mellitus with foot ulcer 2022 Active Z47.89 Encounter for other orthopedic aftercare 2022 Active VITAL SIGNS Date Time Diastolic blood pressure Systolic blood pressure Body height Body weight Temperature SpO2 Blood Sugar Pulse Respirations 61 90356 6 130.40 NI 612 29488 9 61 NI 612 47169 7 90.00 mm[Hg] - Sitting 120.00 mm[Hg] - Sitting 96.00 Tympanic 100.0 0% 60.00/ min 612 28291 7 90.00 mm[Hg] - Sitting 120.00 mm[Hg] - Sitting 96.00 Tympanic 60.00/ min 18.00/min 613 09165 7 47.00 mm[Hg] - Sitting 114.00 mm[Hg] - Sitting 98.00 Forehead Scan 97.00 % 65.00/ min 61 56198 5 53.00 mm[Hg] - Lying Down 160.00 mm[Hg] - Lying Down 97.30 Forehead Scan 59.00/ min 18.00/min 613 52648 9 31003 5 51.00 mm[Hg] - Sitting 141.00 mm[Hg] - Sitting 98.60 Tympanic 98.00 % 60.00/ min
--- OUTSIDE RECORDS SUMMARY | 2023-05-06 13:02 | External Medical Summary ---
Author Name Unknown Address Unknown Organization K09:[facility] [place] [address] Laboratory Report Ordering Provider Test Date Status LAURIE ABDI 04/08/2023 05:30:00 Final Observation Date Value Abnormality Reference (Units ) Status WBC, Total 04/08/2023 05:30:00 6.29 4.00-10.8 0 (K/uL) Final RBC 04/08/2023 05:30:00 2.59 3.85-5.15 (M/uL) Final Hemoglobin 04/08/2023 05:30:00 7.9 Below low normal 12 .0-15.3 (g/dL) Final HCT 04/08/2023 05:30:00 26.3 Below low normal 36. 0-45.2 (%) Final MCV 04/08/2023 05:30:00 101.5 81.5-97.5 (fL) Final MCH 04/08/2023 05:30:00 30.5 27.0-34.0 (pg) Final MCHC 04/08/2023 05:30:00 30.0 32.0-36.0 (g/dL) Final RDW 04/08/2023 05:30:00 18.4 11.5-15.5 (%) Final Platelets 04/08/2023 05:30:00 273 140-400 (K /uL) Final MPV 04/08/2023 05:30:00 10.4 6.6-11.1 ( fL) Final Performing Location [facility] [place] [address]
--- OUTSIDE RECORDS SUMMARY | 2023-05-06 13:02 | External Medical Summary | Continuity of Care Document ---
Author Name Unknown Address [address] [place] [address] Phone [facility] Address [address] [place] [address] Phone Allergies, Adverse Reactions, Alerts Allergen Type Severity Reaction Last Updated Verified Status codeine Allergy Unknown hallucinations August 11, 2020 2:46pm Ye s Active morphine Allergy Unknown unknown August 11, 2020 2:46pm Yes Active prednisone Allergy Unknown red and itchy August 11, 2020 2:46pm Yes Active Social History Smoking Status Unknown if ever smoked Additional Data Assigned Sex Female Problems Active Problems Medical Problem Onset Date Status Familial combined hyperlipidemia Active Ischemic cerebrovascular accident (CVA) Active Primary open angle glaucoma (POAG) March 15, 2019 Active Compression fracture of L1 vertebra Active Insomnia Active Insomnia March 04, 2014 Active Obstructive sleep apnea syndrome Active History of breast surgery Active Type 2 diabetes mellitus with diabetic neuropath y March 17, 2015 Active Nicotine dependence, cigarettes, uncomplicated Active Low back pain January 01, 2016 Active Gastroparesis Active Slurred speech Active Status post placement of implantable loop record er Active Diabetes Active Diabetes Active Essential hypertension Active Essential hypertension December 26, 2013 Active Vitamin B12 deficiency Active Type 2 diabetes mellitus Active URI (upper respiratory infection) Active Coronary artery disease Active CHF (congestive heart failure) A ctive Influenza vaccine administered A ctive Anemia Active Progressive anemia Active Anemia Active Anemia June 03, 2014 Active Unstable angina Active Worsening renal function Active Hematoma of right lower extremity Active Jruxburmwr-umnghqgqs-wicucqg (DPT) vaccination administered at current visit Active TIA (transient ischemic attack) Active Hyperlipidemia Active Hyperlipidemia January 01, 2016 Active Hyponatremia Active Hypothyroidism Active Hypothyroidism January 01, 2016 Active Right leg pain Active Acute coronary syndrome Active Chronic kidney disease Active Chronic kidney disease Active Nonproliferative diabetic retinopathy March Active NSTEMI (non-ST elevated myocardial infarction) Active Chest pain in adult Active Peripheral vascular disease March 04, 2014 Active Status post hysterectomy Active H/O: CVA (cerebrovascular accident) Active Status post carpal tunnel release Active Status post amputation Active Hemodialysis status Active Right hip pain Active Cerebral apoplexy Active Chronic renal failure March 04, 2014 Activ e GERD (gastroesophageal reflux disease) Active Gastroesophageal reflux disease March 04, 2014 Active History of CVA (cerebrovascular accident) Active Wound of right leg Active Chest pain Active Depressive disorder March 04, 2014 Active Hypertension Active Vitamin D deficiency October 11, 2016 Active Fall Active Acute appendicitis Active Obesity March 04, 2014 Active Arteriosclerosis of coronary artery May Active Abrasion forearm Active Dehydration Active Hyperkalemia Active Hyperkalemia Active Inactive/Resolved Problems Medical Problem Onset Date Status Acute upper respiratory infection February Resolved Medications Medication Status Dose Units Route Directions Qty Days St art Date End Date Instructions Zolpidem Tartrate Disconti nued 5 MG PO Every Night 30 2019 1:00am August 16, 2019 4:40pm Loratadine Disconti nued 10 MG PO daily 2019 1:00am September 10, 2019 4:21pm Atorvastatin Calcium (Lipitor) 80 mg tablet Disconti nued 40 MG PO Bedtime 2019 9:28am December 14, 2019 1:21pm Cholecalcife rol (Vitamin D3) (Vitamin D3) 25 mcg (1,000 unit) capsule Disconti nued 2000 UNIT PO Daily 2019 9:30am August 17, 2019 9:08am Metoprolol Tartrate Disconti nued 0 .ROUTE .COMPLEX 2019 1:00am August 24, 2019 8:16am 1 tablet in the morning and 2 tablets in the evening; Dulaglutide (Trulicity) 0.75 mg/0.5 mL pen injector Disconti nued 0.75 MG SUBCUT Every Week 2019 1:00am October 05, 2019 9:29am Esomeprazole Magnesium Disconti nued 40 MG PO daily 30 2019 1:00am September 21, 2019 11:05a m Insulin Glargine,Hum .Rec.Anlog (Tesha [place] U-300 Insulin) 300 unit/mL (1.5 mL) insulin pen Disconti nued 26 UNIT SUBCUT daily 4.5 2019 1:00am 2019 3:41pm Allopurinol Disconti nued 100 MG PO daily 2019 1:00am December 06, 2019 5:10pm Insulin Glargine,Hum .Rec.Anlog (Tourichardson Solostar U-300 Insulin) 300 unit/mL (1.5 mL) insulin pen Disconti nued 27 UNIT SUBCUT daily 4.5 2019 3:39pm October 09, 2019 3:03pm Zolpidem Tartrate Disconti nued 5 MG PO Every Night August 16, 2019 4:40pm August 16, 2019 5:41pm Zolpidem Tartrate Disconti nued 5 MG PO Every Night August 16, 2019 5:40pm September 10, 2019 4:21pm Cholecalcife rol (Vitamin D3) (Vitamin D3) 25 mcg (1,000 unit) capsule Disconti nued 2000 UNIT PO Daily August 17, 2019 9:08am August 17, 2019 9:09am Cholecalcife rol (Vitamin D3) (Vitamin D3) 25 mcg (1,000 unit) capsule Disconti nued 2000 UNIT PO Daily August 17, 2019 9:09am Novemb 2019 4:26pm Metoprolol Tartrate Disconti nued 0 .ROUTE .COMPLEX August 24, 2019 8:16am Sept2019 12:02p m 1 tablet in the morning and 2 tablets in the evening; Loratadine Disconti nued 10 MG PO daily September 10, 2019 4:21pm September 10, 2019 4:22pm Zolpidem Tartrate Disconti nued 5 MG PO Every Night September 10, 2019 4:21pm September 10, 2019 4:27pm Loratadine Disconti nued 10 MG PO daily September 10, 2019 4:22pm February 08, 2020 8:28am Zolpidem Tartrate Disconti nued 5 MG PO Every Night September 10, 2019 4:27pm October 09, 2019 4:10pm do not fill until 09/13/19 Esomeprazole Magnesium Disconti nued 40 MG PO daily September 21, 2019 11:05am Octobe r 2019 12:01p m Clopidogrel Bisulfate (Clopidogrel ) 75 mg tablet Disconti nued 75 MG PO Daily September 28, 2019 9:30am September 28, 2019 9:31am Clopidogrel Bisulfate (Clopidogrel ) 75 mg tablet Disconti nued 75 MG PO Daily September 28, 2019 9:31am Octobe r 2019 12:01p m Dulaglutide (Trulicity) 0.75 mg/0.5 mL pen injector Disconti nued 0.75 MG SUBCUT Every Week 2 October 05, 2019 9:29am January 24, 2020 2:20pm Insulin Glargine,Hum .Rec.Anlog (Tesha Solostar U-300 Insulin) 300 unit/mL (1.5 mL) insulin pen Disconti nued 27 UNIT SUBCUT daily 4.5 October 09, 2019 3:03pm 2020 9:41am Zolpidem Tartrate Disconti nued 5 MG PO Every Night October 09, 2019 4:09pm November 08, 2019 12:01a m do not fill until 10/11/19 Zolpidem Tartrate Disconti nued 5 MG PO Every Night November 15, 2019 2:50pm November 15, 2019 5:07pm do not fill until 10/11/19 Zolpidem Tartrate Disconti nued 5 MG PO Every Night November 15, 2019 5:07pm December 13, 2019 2:20pm Ferrous Sulfate Disconti nued 325 MG PO Daily 60 November 23, 2019 8:36am November 23, 2019 8:39am Ferrous Sulfate Disconti nued 325 MG PO Daily 30 November 23, 2019 8:38am January 28, 2020 8:27am Furosemide Disconti nued 40 MG PO daily November 23, 2019 12:00am November 23, 2019 8:42am Furosemide Disconti nued 40 MG PO daily November 23, 2019 8:42am Novemb er 2019 2:22pm Amitriptylin e Hcl Disconti nued 100 MG PO Bedtime November 29, 2019 4:24pm Decemb er 2019 12:42p m Levothyroxin e Sodium Disconti nued 25 MCG PO Daily November 29, 2019 4:25pm November 29, 2019 4:26pm Levothyroxin e Sodium Disconti nued 25 MCG PO Daily November 29, 2019 4:26pm Septem clark 2019 11:15a m Allopurinol Disconti nued 100 MG PO daily December 06, 2019 5:10pm January 07, 2020 1:29pm Zolpidem Tartrate Disconti nued 5 MG PO Every Night 30 December 13, 2019 2:20pm January 10, 2020 4:50pm Atorvastatin Calcium (Lipitor) 80 mg tablet Disconti nued 40 MG PO Bedtime December 14, 2019 1:21pm Novemb er 2019 2:16pm Allopurinol Disconti nued 100 MG PO daily January 07, 2020 1:29pm Junuar y 2020 12:40p m Zolpidem Tartrate Disconti nued 5 MG PO Every Night January 10, 2020 4:50pm February 09, 2020 12:02a m Ferrous Sulfate Disconti nued 325 MG PO Daily January 28, 2020 8:26am Novemb er 2019 12:49p m Loratadine Disconti nued 10 MG PO daily February 08, 2020 8:28am Septem clark 2019 1:55pm Zolpidem Tartrate Disconti nued 5 MG [facility] 4:49pm Septem clark 2019 8:22am Zolpidem Tartrate Disconti nued 5 MG PO Every Night 30 30 Febemb er 2019 8:22am Octobe r 2019 3:47pm Metoprolol Tartrate Disconti nued 0 .ROUTE .COMPLEX Febemb er 2019 12:02pm Octobe r 2019 4:08pm 1 tablet in the morning and 2 tablets in the evening; Levothyroxin e Sodium Disconti nued 25 MCG PO Daily 30 2019 11:15am Januar y 2020 3:06pm Zolpidem Tartrate Disconti nued 5 MG PO Every Night 90 March 13, 2020 3:46pm [facility] er 2019 1:02am Clopidogrel Bisulfate (Clopidogrel ) 75 mg tablet Disconti nued 75 MG PO Daily March 31, 2020 12:01pm October 10, 2020 3:34pm Esomeprazole Magnesium Disconti nued 40 MG PO daily March 31, 2020 12:01pm [facility] er 2019 4:46pm Metoprolol Tartrate Disconti nued 0 .ROUTE .COMPLEX March 31, 2020 4:08pm September 15, 2020 7:09am 1 tablet in the morning and 2 tablets in the evening; Potassium Chloride (K-Tab Er) 10 mEq tablet extended release Active 10 MEQ PO Twice Daily 2019 1:00am Clonidine Hcl Active 0.1 MG PO daily 2019 1:00am Cholecalcife rol (Vitamin D3) (Vitamin D3) 25 mcg (1,000 unit) capsule Disconti nued 2000 UNIT PO Daily 60 2019 4:25pm [facility] er 2019 1:13pm Ferrous Sulfate Disconti nued 325 MG PO Daily 2019 12:49pm 2020 3:00pm Pantoprazole Sodium (Protonix) 40 mg tablet,delay ed release (DR/EC) Disconti nued 40 MG PO daily 2019 1:00am August 25, 2020 4:43pm Amitriptylin e Hcl Disconti nued 0 .ROUTE .COMPLEX 2019 12:42pm November 26, 2020 12:05p m TAKE 1 TABLET BY MOUTH AT BEDTIME Furosemide Disconti nued 40 MG PO daily 2019 1:00am Februa 2020 2:19pm cholecalcife rol (vitamin D3) 50 mcg (2,000 unit) capsule Disconti nued 50 MCG PO daily 2019 1:00am November 26, 2020 2:34pm Dulaglutide (Trulicity) 1.5 mg/0.5 mL pen injector Disconti nued 1.5 MG SUBCUT Every Week 2019 1:14pm October 27, 2020 8:59am Levothyroxin e Sodium (Synthroid) 25 mcg tablet Active 25 MCG PO Daily June 20, 2020 3:06pm Allopurinol Disconti nued 0 .ROUTE .COMPLEX July 04, 2020 12:40pm January 08, 2021 2:26pm TAKE 1 TABLET BY MOUTH EVERY DAY Insulin Glargine,Hum .Rec.Anlog (Jamaaltinajonathan Fishtressaarnol) 300 unit/mL (1.5 mL) insulin pen Disconti nued 0 .ROUTE .COMPLEX 4.5 2020 9:41am November 11, 2020 11:30a m INJECT 27 UNITS SUBCUTANEOUSL Y EVERY DAY Furosemide Disconti nued 40 MG PO daily 2020 2:19pm August 22, 2020 11:51a m Lidocaine Disconti nued 1 PATCH topical daily August 12, 2020 1:00am October 28, 2020 12:56p m leave on most painful area for up to 12 hrs Furosemide Active 40 MG PO daily August 22, 2020 11:50am Esomeprazole Magnesium Disconti nued 40 MG PO daily August 25, 2020 12:00am December 23, 2020 8:37am Atorvastatin Calcium (Lipitor) 40 mg tablet Disconti nued 40 MG PO daily September 01, 2020 8:21am October 03, 2020 8:44am Metoprolol Tartrate Active 0 .ROUTE .COMPLEX September 15, 2020 7:09am 1 tablet in the morning and 2 tablets in the evening; Zolpidem Tartrate Disconti nued 5 MG PO Every Night September 22, 2020 7:18am September 22, 2020 9:33am Zolpidem Tartrate Disconti nued 5 MG PO Every Night September 22, 2020 9:33am December 21, 2020 12:02a m Lisinopril Active 40 MG PO daily October 03, 2020 8:43am Atorvastatin Calcium (Lipitor) 40 mg tablet Disconti nued 40 MG PO daily October 03, 2020 8:44am January 29, 2021 3:50pm Clopidogrel Bisulfate (Clopidogrel ) 75 mg tablet Disconti nued 75 MG PO Daily October 10, 2020 3:33pm November 11, 2020 11:30a m Dulaglutide (Trulicity) 1.5 mg/0.5 mL pen injector Active 0 .ROUTE .COMPLEX 2 October 27, 2020 8:59am INJECT 1.5 MG SUBCUTANEOUSL Y EVERY WEEK Clopidogrel Bisulfate (Clopidogrel ) 75 mg tablet Active 75 MG PO Daily November 11, 2020 11:29am Insulin Glargine,Hum .Rec.Anlog (Toutrinidado Solostar U-300 Insulin) 300 unit/mL (1.5 mL) insulin pen Active 0 .ROUTE .COMPLEX 4.5 November 11, 2020 11:29am INJECT 27 UNITS SUBCUTANEOUSL Y EVERY DAY Amitriptylin e Hcl Active 0 .ROUTE .COMPLEX November 26, 2020 12:05pm TAKE 1 TABLET AT BEDTIME cholecalcife rol (vitamin D3) 50 mcg (2,000 unit) capsule Disconti nued 50 MCG PO daily November 26, 2020 2:34pm January 22, 2021 3:22pm Zolpidem Tartrate Disconti nued 5 MG PO Every Night 90 90 December 22, 2020 6:48am Octobe r 2020 12:03a m Esomeprazole Magnesium Active 0 .ROUTE .COMPLEX December 23, 2020 8:37am TAKE 1 CAPSULE BY MOUTH EVERY DAY Loratadine Disconti nued 10 MG PO daily December 23, 2020 12:00am December 23, 2020 11:13a m Loratadine Active 0 .ROUTE .COMPLEX December 23, 2020 11:13am TAKE 1 TABLET BY MOUTH EVERY DAY Allopurinol Active 0 .ROUTE .COMPLEX Dec 2:26pm TAKE 1 TABLET BY MOUTH EVERY DAY cholecalcife rol (vitamin D3) 50 mcg (2,000 unit) capsule Active 0 .ROUTE .COMPLEX January 22, 2021 3:21pm TAKE 1 CAPSULE BY MOUTH EVERY DAY Atorvastatin Calcium (Lipitor) 40 mg tablet Active 0 .ROUTE .COMPLEX January 29, 2021 3:50pm TAKE 1 TABLET (40 MG) BY MOUTH EVERY DAY Amitriptylin e Hcl Disconti nued 100 MG PO Bedtime August 12, 2015 1:00am November 29, 2019 4:25pm Amlodipine Besylate/Jose azepril (Amlodipine- Benazepril 2.5-10) 1 EACH Capsule Disconti nued 2.5 MG PO Daily August 12, 2015 1:00am September 07, 2015 4:16pm Atorvastatin Calcium (Lipitor) 80 MG tablet Disconti nued 80 MG PO Bedtime August 12, 2015 1:00am 2019 9:50am Cholecalcife rol (Vitamin D3) (Vitamin D3) 1,000 UNIT capsule Disconti nued 1000 UNITS PO Daily August 12, 2015 1:00am 2019 9:50am Clopidogrel Bisulfate (Plavix) 75 MG tablet Disconti nued 75 MG PO Daily August 12, 2015 1:00am September 28, 2019 9:30am Docusate Sodium (Colace) 100 MG capsule Disconti nued 100 MG PO Bedtime August 12, 2015 1:00am October 28, 2020 12:58p m Ferrous Sulfate Disconti nued 325 MG PO Daily August 12, 2015 1:00am November 23, 2019 8:38am Furosemide (Lasix) 20 MG Tablet Disconti nued 20 MG PO Daily August 12, 2015 1:00am August 29, 2015 10:54a m Latanoprost Disconti nued 1 DROP EACH EYE Every Night August 12, 2015 1:00am September 07, 2015 4:14pm Moxifloxacin Hcl (Avelox) 400 MG Tablet Disconti nued 400 MG PO Daily August 12, 2015 1:00am August 22, 2015 3:17am Humalog Disconti nued 8 UNITS SUBCUT Three Times Daily With Meals August 14, 2015 1:00am August 29, 2015 10:57a m Metocloprami de Hcl (Reglan) 10 MG Tablet Disconti nued 10 MG PO Before Meals & Bed 120 August 16, 2015 1:00am September 08, 2015 9:27am Ranitidine Hcl (Zantac) 150 MG tablet Disconti nued 300 MG PO Bedtime 30 August 16, 2015 1:00am 2019 9:36am Furosemide (Lasix) 20 MG Tablet Disconti nued 20 MG PO Lasix PO BID 60 August 29, 2015 12:00am September 07, 2015 4:16pm Humalog Disconti nued 8 UNITS SUBCUT Three Times Daily With Meals 0 August 29, 2015 10:57am September 07, 2015 4:15pm Furosemide Disconti nued 20 MG PO Daily September 07, 2015 12:00am October 21, 2015 11:29a m Latanoprost Active 1 DRP EACH EYE Bedtime September 07, 2015 12:00am Levothyroxin e Sodium Disconti nued 25 MCG PO Daily September 07, 2015 12:00am November 29, 2019 4:25pm Metocloprami de Hcl (Reglan) 10 MG tablet Disconti nued 10 MG PO Before Meals & Bed 120 September 08, 2015 9:27am Februa 2019 9:36am Furosemide (Lasix) 20 MG Tablet Disconti nued 20 MG PO Lasix PO BID 60 October 21, 2015 12:00am January 25, 2016 3:54pm Cefuroxime Axetil (Ceftin) 250 MG Tablet Disconti nued 250 MG PO Twice Daily 14 October 21, 2015 12:00am January 25, 2016 3:50pm Furosemide (Lasix) 20 MG tablet Disconti nued 40 MG PO Daily January 25, 2016 4:00pm November 23, 2019 8:40am Lisinopril Disconti nued 40 MG PO daily 1 [facility] 2019 12:00am October 03, 2020 8:44am Insulin Lispro (Humalog Kwikpen U-100) 100 unit/mL insulin pen Disconti nued 5 UNIT SUBCUT once daily before dinner 3 [facility] 2019 12:00am Octobe r 2019 2:02pm 5 units at supper time Mupirocin Disconti nued 1 APPLIC topical Twice Daily 15 [facility] 2019 12:00am October 28, 2020 12:56p m Isosorbide Mononitrate (Isosorbide Mononitrate Er) 30 mg tablet extended release 24 hr Active MG PO June 23, 2020 1:00am Aspirin Active 325 MG PO daily June 23, 2020 1:00am Ferrous Sulfate (Slow Release Iron) 140 mg (45 mg iron) tablet extended release Active 140 MG PO daily October 28, 2020 1:16pm Ascorbic Acid Active 500 MG PO daily October 28, 2020 12:00am Lidocaine Active 1 PATCH topical daily October 28, 2020 1:17pm leave on most painful area for up to 12 hrs Dulaglutide (Trulicity) 1.5 mg/0.5 mL pen injector Disconti nued 1.5 MG SUBCUT Every Week January 24, 2020 12:00am [facility] er 2019 1:14pm Insulin Lispro (Insulin Lispro Kwikpen U-100) 100 unit/mL insulin pen Disconti nued 5 UNIT SUBCUT once daily before dinner March 17, 2020 2:01pm [facility] er 2019 2:15pm sliding scale at noon (2 or 4 units); 5 units at supper time Cyanocobalam in (Vitamin B-12) (Vitamin B-12) 1,000 mcg capsule Active MCG PO [facility] r 2019 1:00am Insulin Lispro (Insulin Lispro Kwikpen U-100) 100 unit/mL insulin pen Disconti nued 5 UNIT SUBCUT once daily before dinner [facility] r 2019 2:15pm [facility] er 2019 2:28pm sliding scale at noon (2 or 4 units); 5 units at supper time Atorvastatin Calcium (Lipitor) 40 mg tablet Disconti nued 40 MG PO daily r 2019 1:00am September 01, 2020 8:21am Cephalexin Disconti nued 500 MG PO TID [address] [facility] r 2019 1:00am 2020 1:02am Ferrous Sulfate Disconti nued 325 MG PO Daily June 19, 2020 3:00pm Februa ry 2020 12:36p m Zolpidem Tartrate Disconti nued 5 MG PO Every Night 90 June 19, 2020 3:01pm Junua2020 3:14pm Cephalexin Disconti nued 500 MG PO Twice Daily June 19, 2020 1:00am October 28, 2020 12:59p m Zolpidem Tartrate Disconti nued 5 MG PO Every Night June 19, 2020 3:13pm September 17, 2020 12:02a m Ezetimibe Active 10 MG PO daily 90 y 2020 1:00am Ferrous Sulfate (Slow Release Iron) 140 mg (45 mg iron) tablet extended release Disconti nued 140 MG PO daily 30 y 2020 1:00am October 28, 2020 1:26pm Nicotine (Nicotine Patch) 21-14-7 mg/24 hr patch, TD daily, sequential Disconti nued 0 transde rmal .COMPLEX 56 2020 1:00am October 28, 2020 12:56p m apply 1-21 mg NICOTINE PATCH daily for 28 days; follow with 1-14 mg PATCH daily for 14 days, then 1-7mg PATCH daily for 14 days transdermal Immunizations Immunization Event Date Not Given Reason Dose Number Postbed Stitcher Lot Number Vaccine Information Statement (VIS) Detail Influenza, high-dose, Quadrivalent March 10, 2020 [id number] Pneumococcal 23-Valent Polysaccharide Vaccine February 25, 2015 Tetanus, Diphtheria, Pertussis (Tdap) March 10, 2020 [id number] Influenza Trivalent Vaccine May 13, 2015 Insurance Providers Guarantor Jacqui Hudson Address [address] [place] [address] Contact Info. Home Phone: Payer Policy Id Coverage Id Subscriber's Name Subscriber Id Effective Date Expiration Date [facility] Health Plan [id number] Jacqui Hudson [id number] [place] [address] [id number] Abilio Hudson [id number] 2016 Self Pay Self N/A
--- OUTSIDE RECORDS SUMMARY | 2023-05-06 13:02 | External Medical Summary ---
Author Name Unknown Address Unknown Organization K0G:[facility] [address] [place] [id number] Laboratory Report Ordering Provider Test Date Status HY,DEPAMPHILIS 04/10/2023 05:30:00 Final Observation Date Value Abnormality Reference (Units ) Status BUN 04/10/2023 05:30:00 18 6-20 (mg/dL) Final Creatinine 04/10/2023 05:30:00 3.3 Above high normal 0.5-1.0 (mg/dL) Final Glomerular filtration rate/1.73 sq M.predicted [Volume Rate/Area] in Serum, Plasma or Blood by Creatinine-based formula (CKD-EPI) 04/10/2023 05:30:00 15 Below low normal >=60 (mL/min) Final eGFR is calculated based on the CKD-EPI 2020 equation SODIUM 04/10/2023 05:30:00 134 Below low normal 135 -146 (mmol/L) Final Potassium 04/10/2023 05:30:00 4.0 3.5-5.1 (m mol/L) Final Cl 04/10/2023 05:30:00 95 Below low normal 98- 107 (mmol/L) Final CO2 04/10/2023 05:30:00 27 22-32 (mmo l/L) Final Anion gap 04/10/2023 05:30:00 12 7-15 (mmol /L) Final Glucose 04/10/2023 05:30:00 65 Below low normal 70- 120 (mg/dL) Final Calcium 04/10/2023 05:30:00 7.5 Below low normal 8.4 -10.2 (mg/dL) Final Performing Location [facility] [employer] [address] [place] [id number]
--- OUTSIDE RECORDS SUMMARY | 2023-05-06 13:02 | External Medical Summary | Continuity Of Care Document ---
Author Name Unknown Address [address] [place] [address] Organization [facility] () Care Team Providers Care Bottom Finisher Name Role Phone DO Lafleur Amy Primary Care Provider [phone] Problems Code Description Start Date End Date Status Z89.422 Acquired absence of other left toe(s) Active S91.302D Unspecified open wou nd, left foot, subsequent encounter 01/05/2023 Active D64.9 Anemia, unspecified 01/05/2023 Activ e E03.9 Hypothyroidism, unspecified 01/05/2023 00 Active I10. Essential (primary) hypertension 01/05/2023 Active I73.9 Peripheral vascular disease, unspecified 2022 Active N18.6 End stage renal disease 01/05/2023 A ctive Z99.2 Dependence on renal dialysis 01/05/2023 000 Active I25.10 Atherosclerotic hear t disease of [place] coronary artery without angina pectoris 01/05/2023 Active E78.5 Hyperlipidemia, unspecified 01/05/2023 00 Active VITAL SIGNS Date Time Diastolic blood pressure Systolic blood pressure Body height Body weight Temperature SpO2 Blood Sugar Pulse Respirations 627 03834 6 82.00 mm[Hg] - Sitting 155.00 mm[Hg] - Sitting 97.00 Tympanic 97.00 % 80.00/ min 627 16607 4 62 39528 0 59.00 mm[Hg] - Sitting 161.00 mm[Hg] - Sitting 98.40 Forehead Scan 99.00 % 64.00/ min 628 24007 7 70.00 mm[Hg] - Sitting 175.00 mm[Hg] - Sitting 98.00 Tympanic 64.00/ min 27056 628 13179 4 49.00 mm[Hg] - Sitting 128.00 mm[Hg] - Sitting 98.00 % 63.00/ min 78155 629 21482 7 52.00 mm[Hg] - Sitting 151.00 mm[Hg] - Sitting 98.20 Tympanic 72.00/ min 54288 629 26455 3 49.00 mm[Hg] - Lying Down 155.00 mm[Hg] - Lying Down 98.60 Forehead Scan 95.00 % 69.00/ min 22792 726 09979 6 95558 726 80755 4 62.00 mm[Hg] - Sitting 86.00 mm[Hg] - Sitting 123.40 NI 97.50 Tympanic 18.00/min 89792 726 81975 6 80.00 mm[Hg] - Sitting 120.00 mm[Hg] - Sitting 54947 726 01982 0 78.00 mm[Hg] - Lying Down 118.00 mm[Hg] - Lying Down 98.20 Forehead Scan 99.00 % 68.00/ min 31414 726 16599 9 78.00 mm[Hg] - Sitting 118.00 mm[Hg] - Sitting 98.20 Tympanic 99.00 % 68.00/ min 31330 727 96251 2 98.00 mm[Hg] - Sitting 127.00 mm[Hg] - Sitting 64.00/ min Immunizations Vaccine Date Status COVID-19 08/28/2020 Completed COVID-19 09/18/2020 Completed COVID-19 04/14/2021 Completed COVID-19 04/16/2022 Completed Influenza 03/22/2022 Completed (PPSV23)Pneumococcal 04/05/2019 Completed
--- OUTSIDE RECORDS SUMMARY | 2023-05-06 13:02 | External Medical Summary ---
Author Name Unknown Address Unknown Organization [id number]:LABORATORY [facility] [place] [address] [place] [address] Laboratory Report Ordering Provider Test Date Status AMANDA,MARKER 04/16/2023 08:53:07 Final Observation Date Value Abnormality Reference (Units ) Status WBC, Total 04/16/2023 08:53:07 5.26 4.00-10.8 0 (K/uL) Final RBC 04/16/2023 08:53:07 2.92 3.85-5.15 (M/uL) Final Hemoglobin 04/16/2023 08:53:07 9.1 Below low normal 12 .0-15.3 (g/dL) Final HCT 04/16/2023 08:53:07 29.0 Below low normal 36. 0-45.2 (%) Final MCV 04/16/2023 08:53:07 99.3 81.5-97.5 (fL) Final MCH 04/16/2023 08:53:07 31.2 27.0-34.0 (pg) Final MCHC 04/16/2023 08:53:07 31.4 32.0-36.0 (g/dL) Final RDW 04/16/2023 08:53:07 16.7 11.5-15.5 (%) Final Platelets 04/16/2023 08:53:07 247 140-400 (K /uL) Final MPV 04/16/2023 08:53:07 10.3 6.6-11.1 ( fL) Final Performing Location LABORATORY [facility] [place] [address] [place] [address]
--- OUTSIDE RECORDS SUMMARY | 2023-05-06 13:02 | External Medical Summary | Continuity Of Care Document ---
Author Name Unknown Address [address] [place] [address] Organization [facility] () Care Team Providers Care Fsr Name Role Phone DO Lafleur Amy Primary Care Provider [phone] VITAL SIGNS Date Time Diastolic blood pressure Systolic blood pressure Body height Body weight Temperature SpO2 Blood Sugar Pulse Respirations 627 53666 6 82.00 mm[Hg] - Sitting 155.00 mm[Hg] - Sitting 97.00 Tympanic 97.00 % 80.00/ min 88564 627 38740 4 80321 627 73466 0 59.00 mm[Hg] - Sitting 161.00 mm[Hg] - Sitting 98.40 Forehead Scan 99.00 % 64.00/ min 36001 628 29587 7 70.00 mm[Hg] - Sitting 175.00 mm[Hg] - Sitting 98.00 Tympanic 64.00/ min 68306 628 31162 4 49.00 mm[Hg] - Sitting 128.00 mm[Hg] - Sitting 98.00 % 63.00/ min 99490 629 24279 7 52.00 mm[Hg] - Sitting 151.00 mm[Hg] - Sitting 98.20 Tympanic 72.00/ min 36489 629 27969 3 49.00 mm[Hg] - Lying Down 155.00 mm[Hg] - Lying Down 98.60 Forehead Scan 95.00 % 69.00/ min 06937 726 47029 6 63286 726 73665 4 62.00 mm[Hg] - Sitting 86.00 mm[Hg] - Sitting 123.40 NI 97.50 Tympanic 18.00/min 02363 726 31129 6 80.00 mm[Hg] - Sitting 120.00 mm[Hg] - Sitting 86261 726 29984 0 78.00 mm[Hg] - Lying Down 118.00 mm[Hg] - Lying Down 98.20 Forehead Scan 99.00 % 68.00/ min 31401 726 48395 9 78.00 mm[Hg] - Sitting 118.00 mm[Hg] - Sitting 98.20 Tympanic 99.00 % 68.00/ min Immunizations Vaccine Date Status COVID-19 08/28/2020 Completed COVID-19 09/18/2020 Completed COVID-19 04/14/2021 Completed COVID-19 04/16/2022 Completed Influenza 03/22/2022 Completed (PPSV23)Pneumococcal 04/05/2019 Completed
--- OUTSIDE RECORDS SUMMARY | 2023-05-06 13:02 | External Medical Summary | Continuity of Care Document ---
Author Name Unknown Address [address] [place] [address] Phone [facility] Address [address] [place] [address] Phone Allergies, Adverse Reactions, Alerts Allergen Type [...] Active Hematoma of right lower extremity Active Sjnfuehbaa-xanuwngrt-ijjlrzt (DPT) vaccination administered at current visit Active [...] Disconti nued 5 [facility] 4:49[facility] Septem clark 2019 8:22am [...] Every Night 90 March 13, 2020 3:46pm [facility] er 2019 1:02am Clopidogrel Bisulfate (Clopidogrel ) 75 mg tablet Disconti nued 75 MG PO Daily March 31, 2020 12:01pm October 10, 2020 3:34pm Esomeprazole Magnesium Disconti nued 40 MG PO daily March 31, 2020 12:01pm [facility] er 2019 4:46pm Metoprolol Tartrate Disconti nued [...] 2000 UNIT PO Daily 60 2019 4:25pm [facility] er 2019 1:13pm Ferrous Sulfate Disconti nued [...] Disconti nued 40 MG PO daily 1 [facility] 2019 12:00am October 03, 2020 8:44am Insulin Lispro (Humalog Kwikpen U-100) 100 unit/mL insulin pen Disconti nued 5 UNIT SUBCUT once daily before dinner 3 [facility] 2019 12:00am Octobe r 2019 2:02pm 5 units at supper time Mupirocin Disconti nued 1 APPLIC topical Twice Daily 15 [facility] 2019 12:00am October 28, 2020 12:56p m [...] SUBCUT Every Week January 24, 2020 12:00am [facility] er 2019 1:14pm Insulin Lispro (Insulin Lispro Kwikpen U-100) 100 unit/mL insulin pen Disconti nued 5 UNIT SUBCUT once daily before dinner March 17, 2020 2:01pm [facility] er 2019 2:15pm sliding scale at noon (2 or 4 units); 5 units at supper time Cyanocobalam in (Vitamin B-12) (Vitamin B-12) 1,000 mcg capsule Active MCG PO [facility] r 2019 1:00am Insulin Lispro (Insulin Lispro Kwikpen U-100) 100 unit/mL insulin pen Disconti nued 5 UNIT SUBCUT once daily before dinner [facility] r 2019 2:15pm [facility] er 2019 2:28pm sliding scale at noon (2 or 4 units); 5 units at supper time Atorvastatin Calcium (Lipitor) 40 mg tablet Disconti nued 40 MG PO daily r 2019 1:00am September 01, 2020 8:21am Cephalexin Disconti nued 500 MG PO TID 31 12 [facility] r 2019 1:00am 2020 1:02am Ferrous [...] Event Date Not Given Reason Dose Number Clinical Informatics Strategist Lot Number Vaccine Information Statement (VIS) Detail Influenza, high-dose, Quadrivalent March 10, 2020 [id number] Pneumococcal 23-Valent Polysaccharide Vaccine February 25, 2015 Tetanus, Diphtheria, Pertussis (Tdap) March 10, 2020 [id number] Influenza Trivalent Vaccine May 13, 2015 Insurance Providers Guarantor Jacqui Hudson Address [address] [place] [address] Contact Info. Home Phone: Payer Policy Id Coverage Id Subscriber's Name Subscriber Id Effective Date Expiration Date [facility] Health Plan [id number] Jacqui Hudson [id number] [place] [address] [id number] Abilio Hudson [id number] 2015 Self Pay Self N/A
--- OUTSIDE RECORDS SUMMARY | 2023-05-06 13:02 | External Medical Summary | Continuity Of Care Document ---
Author Name Unknown Address [address] [place] [address] Organization [facility] () Care Team Providers Care Wheel Cutter Name Role Phone DO Lafleur Amy Primary Care Provider [phone] Problems Code Description Start Date End Date [...] Active I25.10 Atherosclerotic hear t disease of [place] coronary artery without angina pectoris 01/05/2023 Active E78.5 Hyperlipidemia, unspecified 01/05/2023 00 Active VITAL SIGNS Date Time Diastolic blood pressure Systolic blood pressure Body height Body weight Temperature SpO2 Blood Sugar Pulse Respirations 726 97854 6 49298 726 76943 4 62.00 mm[Hg] - Sitting 86.00 mm[Hg] - Sitting 123.40 NI 97.50 Tympanic 18.00/min 726 44892 6 80.00 mm[Hg] - Sitting 120.00 mm[Hg] - Sitting 726 10331 0 78.00 mm[Hg] - Lying Down 118.00 mm[Hg] - Lying Down 98.20 Forehead Scan 99.00 % 68.00/ min 726 35174 9 78.00 mm[Hg] - Sitting 118.00 mm[Hg] - Sitting 98.20 Tympanic 99.00 % 68.00/ min 727 76199 1 123.70 NI 727 15412 2 98.00 mm[Hg] - Sitting 127.00 mm[Hg] - Sitting 64.00/ min 727 69280 9 68.00 mm[Hg] - Sitting 134.00 mm[Hg] - Sitting 98.10 Forehead Scan 100.0 0% 73.00/ min 728 18648 0 68.00 mm[Hg] - Sitting 110.00 mm[Hg] - Sitting 97.60 Tympanic 97.00 % 72.00/ min 728 00183 6 78.00 mm[Hg] - Lying Down 195.00 mm[Hg] - Lying Down 97.80 Forehead Scan 96.00 % 70.00/ min 729 00406 0 51.00 mm[Hg] - Sitting 139.00 mm[Hg] - Sitting 97.00 Tympanic 98.00 % 65.00/ min 729 93100 0 78.00 mm[Hg] - Lying Down 130.00 mm[Hg] - Lying Down 97.20 Forehead Scan 95.00 % 79.00/ min 730 61023 3 65.00 mm[Hg] - Sitting 144.00 mm[Hg] - Sitting 97.80 Tympanic 96.00 % 60.00/ min 730 73675 0 68.00 mm[Hg] - Lying Down 130.00 mm[Hg] - Lying Down 96.70 Forehead Scan 99.00 % 78.00/ min 731 58699 7 72.00 mm[Hg] - Sitting 154.00 mm[Hg] - Sitting 97.00 Forehead Scan 95.00 % 99.00/ min 731 41331 0 74.00 mm[Hg] - Lying Down 122.00 mm[Hg] - Lying Down 98.00 Forehead Scan 95.00 % 66.00/ min 731 42137 0 98.00 Tympanic 95.00 % 66.00/ min 801 50177 0 69.00 mm[Hg] - Lying Down 130.00 mm[Hg] - Lying Down 97.60 Forehead Scan 95.00 % 69.00/ min 801 48367 1 69.00 mm[Hg] - Lying Down 130.00 mm[Hg] - Lying Down 130.40 NI 98.00 Tympanic 69.00/ min 18.00/min 801 44025 0 70.00 mm[Hg] - Sitting 160.00 mm[Hg] - Sitting 98.00 Forehead Scan 96.00 % 66.00/ min 802 11522 0 89.00 mm[Hg] - Lying Down 132.00 mm[Hg] - Lying Down 96.70 Tympanic 98.00 % 73.00/ min Immunizations Vaccine Date Status COVID-19 08/28/2020 Completed COVID-19 09/18/2020 Completed COVID-19 04/14/2021 Completed COVID-19 04/16/2022 Completed Influenza 03/22/2022 Completed (PPSV23)Pneumococcal 04/05/2019 Completed
--- OUTSIDE RECORDS SUMMARY | 2023-05-06 13:02 | External Medical Summary ---
Author Name Unknown Address Unknown Organization [id number]:LABORATORY [facility] [address] [place] [address] Laboratory Report Ordering Provider Test Date Status HY,DEPAMPHILIS 04/17/2023 08:02:33 Final Observation Date Value Abnormality Reference (Units ) Status BUN 04/17/2023 08:02:33 18 6-20 (mg/dL) Final Creatinine 04/17/2023 08:02:33 3.3 Above high normal 0.5-1.0 (mg/dL) Final Glomerular filtration rate/1.73 sq M.predicted [Volume Rate/Area] in Serum, Plasma or Blood by Creatinine-based formula (CKD-EPI) 04/17/2023 08:02:33 15 Below low normal >=60 (mL/min) Final eGFR is calculated based on the CKD-EPI 2020 equation SODIUM 04/17/2023 08:02:33 136 135-146 (m mol/L) Final Potassium 04/17/2023 08:02:33 3.9 3.5-5.1 (m mol/L) Final Cl 04/17/2023 08:02:33 97 Below low normal 98- 107 (mmol/L) Final CO2 04/17/2023 08:02:33 29 22-32 (mmo l/L) Final Anion gap 04/17/2023 08:02:33 10 7-15 (mmol /L) Final Glucose 04/17/2023 08:02:33 83 70-120 (mg /dL) Final Calcium 04/17/2023 08:02:33 7.6 Below low normal 8.4 -10.2 (mg/dL) Final Performing Location LABORATORY [place] [address] [place] [address]
--- OUTSIDE RECORDS SUMMARY | 2023-05-06 13:02 | External Medical Summary ---
Author Name Unknown Address Unknown Organization K09:LABORATORY [facility] [address] Laboratory Report Ordering Provider Test Date Status LAURIE ABDI 04/08/2023 05:30:00 Final Observation Date Value Abnormality Reference (Units ) Status BUN 04/08/2023 05:30:00 22 Above high normal 6-20 (mg/dL) Final Creatinine 04/08/2023 05:30:00 3.7 Above high normal 0.5-1.0 (mg/dL) Final Glomerular filtration rate/1.73 sq M.predicted [Volume Rate/Area] in Serum, Plasma or Blood by Creatinine-based formula (CKD-EPI) 04/08/2023 05:30:00 13 Below low normal >=60 (mL/min) Final eGFR is calculated based on the CKD-EPI 2020 equation SODIUM 04/08/2023 05:30:00 135 135-146 (m mol/L) Final Potassium 04/08/2023 05:30:00 4.5 3.5-5.1 (m mol/L) Final Cl 04/08/2023 05:30:00 97 Below low normal 98- 107 (mmol/L) Final CO2 04/08/2023 05:30:00 26 22-32 (mmo l/L) Final Anion gap 04/08/2023 05:30:00 12 7-15 (mmol /L) Final Glucose 04/08/2023 05:30:00 63 Below low normal 70- 120 (mg/dL) Final Calcium 04/08/2023 05:30:00 7.4 Below low normal 8.4 -10.2 (mg/dL) Final Performing Location LABORATORY [facility] [address]
--- OUTSIDE RECORDS SUMMARY | 2023-05-06 13:02 | External Medical Summary ---
Author Name Unknown Address Unknown Organization K09:LABORATORY [place] [address] Laboratory Report Ordering Provider Test Date Status HY,DEPAMPHILIS 04/13/2023 05:30:00 Final Observation Date Value Abnormality Reference (Units ) Status BUN 04/13/2023 05:30:00 18 6-20 (mg/dL) Final Creatinine 04/13/2023 05:30:00 3.3 Above high normal 0.5-1.0 (mg/dL) Final Glomerular filtration rate/1.73 sq M.predicted [Volume Rate/Area] in Serum, Plasma or Blood by Creatinine-based formula (CKD-EPI) 04/13/2023 05:30:00 16 Below low normal >=60 (mL/min) Final eGFR is calculated based on the CKD-EPI 2020 equation SODIUM 04/13/2023 05:30:00 131 Below low normal 135 -146 (mmol/L) Final Potassium 04/13/2023 05:30:00 4.6 3.5-5.1 (m mol/L) Final Cl 04/13/2023 05:30:00 94 Below low normal 98- 107 (mmol/L) Final CO2 04/13/2023 05:30:00 27 22-32 (mmo l/L) Final Anion gap 04/13/2023 05:30:00 10 7-15 (mmol /L) Final Glucose 04/13/2023 05:30:00 76 70-120 (mg /dL) Final Calcium 04/13/2023 05:30:00 7.9 Below low normal 8.4 -10.2 (mg/dL) Final Performing Location LABORATORY [place] [address]
--- OUTSIDE RECORDS SUMMARY | 2023-05-06 13:02 | External Medical Summary ---
Author Name Unknown Address Unknown Organization K01:LABORATORY C - [address] [place] [address] Laboratory Report Ordering Provider Test Date Status HY,DEPAMPHILIS 04/10/2023 05:30:00 Final Observation Date Value Abnormality Reference (Units ) Status Vancomycin, level 04/10/2023 05:30:00 17.0 10 .0-40.0 (ug/mL) Final Performing Location LABORATORY [facility] - [address] [place] [address]
--- OUTSIDE RECORDS SUMMARY | 2023-05-06 13:02 | External Medical Summary | Continuity Of Care Document ---
Author Name Unknown Address [address] [place] [address] [address] [facility] () Care Team Providers Care Wafer Cutter Name Role Phone DO Lafleur Amy Primary Care Provider [phone] Problems Code Description Start Date End Date [...] Active I25.10 Atherosclerotic hear t disease of [place] coronary artery without angina pectoris 01/05/2023 Active E78.5 Hyperlipidemia, unspecified 01/05/2023 00 Active VITAL SIGNS Date Time Diastolic blood pressure Systolic blood pressure Body height Body weight Temperature SpO2 Blood Sugar Pulse Respirations 726 59329 6 38932 726 83134 4 62.00 mm[Hg] - Sitting 86.00 mm[Hg] - Sitting 123.40 NI 97.50 Tympanic 18.00/min 726 39799 6 80.00 mm[Hg] - Sitting 120.00 mm[Hg] - Sitting 726 11377 0 78.00 mm[Hg] - Lying Down 118.00 mm[Hg] - Lying Down 98.20 Forehead Scan 99.00 % 68.00/ min 726 82355 9 78.00 mm[Hg] - Sitting 118.00 mm[Hg] - Sitting 98.20 Tympanic 99.00 % 68.00/ min 727 68161 1 123.70 NI 727 34874 2 98.00 mm[Hg] - Sitting 127.00 mm[Hg] - Sitting 64.00/ min 727 08412 9 68.00 mm[Hg] - Sitting 134.00 mm[Hg] - Sitting 98.10 Forehead Scan 100.0 0% 73.00/ min 728 15950 0 68.00 mm[Hg] - Sitting 110.00 mm[Hg] - Sitting 97.60 Tympanic 97.00 % 72.00/ min 728 57942 6 78.00 mm[Hg] - Lying Down 195.00 mm[Hg] - Lying Down 97.80 Forehead Scan 96.00 % 70.00/ min 729 99495 0 51.00 mm[Hg] - Sitting 139.00 mm[Hg] - Sitting 97.00 Tympanic 98.00 % 65.00/ min 729 50084 0 78.00 mm[Hg] - Lying Down 130.00 mm[Hg] - Lying Down 97.20 Forehead Scan 95.00 % 79.00/ min 730 08976 3 65.00 mm[Hg] - Sitting 144.00 mm[Hg] - Sitting 97.80 Tympanic 96.00 % 60.00/ min 730 33464 0 68.00 mm[Hg] - Lying Down 130.00 mm[Hg] - Lying Down 96.70 Forehead Scan 99.00 % 78.00/ min 731 56692 7 72.00 mm[Hg] - Sitting 154.00 mm[Hg] - Sitting 97.00 Forehead Scan 95.00 % 99.00/ min 731 81589 0 74.00 mm[Hg] - Lying Down 122.00 mm[Hg] - Lying Down 98.00 Forehead Scan 95.00 % 66.00/ min 731 66750 0 98.00 Tympanic 95.00 % 66.00/ min 801 33291 0 69.00 mm[Hg] - Lying Down 130.00 mm[Hg] - Lying Down 97.60 Forehead Scan 95.00 % 69.00/ min 801 39550 1 69.00 mm[Hg] - Lying Down 130.00 mm[Hg] - Lying Down 130.40 NI 98.00 Tympanic 69.00/ min 18.00/min 801 98096 0 70.00 mm[Hg] - Sitting 160.00 mm[Hg] - Sitting 98.00 Forehead Scan 96.00 % 66.00/ min 802 06979 0 89.00 mm[Hg] - Lying Down 132.00 mm[Hg] - Lying Down 96.70 Tympanic 98.00 % 73.00/ min Immunizations Vaccine Date Status COVID-19 08/28/2020 Completed COVID-19 09/18/2020 Completed COVID-19 04/14/2021 Completed COVID-19 04/16/2022 Completed Influenza 03/22/2022 Completed (PPSV23)Pneumococcal 04/05/2019 Completed
--- OUTSIDE RECORDS SUMMARY | 2023-05-06 13:02 | External Medical Summary ---
Author Name Unknown Address Unknown Organization K09:LABORATORY [place] [address] Laboratory Report Ordering Provider Test Date Status JONAS KLEIN 04/18/2023 05:55:00 Final Observation Date Value Abnormality Reference (Units ) Status Phosphate 04/18/2023 05:55:00 2.7 2.5-4.8 (m g/dL) Final Performing Location LABORATORY [place] [address]
--- OUTSIDE RECORDS SUMMARY | 2023-05-06 13:02 | External Medical Summary ---
Author Name Unknown Address Unknown Organization K01:LABORATORY C - [address] [place] [address] Laboratory Report Ordering Provider Test Date Status HY,DEPAMPHILIS 04/13/2023 05:30:00 Final Observation Date Value Abnormality Reference (Units ) Status Vancomycin, level 04/13/2023 05:30:00 16.0 10 .0-40.0 (ug/mL) Final Performing Location LABORATORY [facility] - [address] [place] [address]
--- OUTSIDE RECORDS SUMMARY | 2023-05-06 13:02 | External Medical Summary | Continuity Of Care Document ---
Author Name Unknown Address [address] [place] [address] Organization [facility] () Care Team Providers Care Rn Imcu Name Role Phone DO Lafleur Amy Primary Care Provider [phone] Problems Code Description Start Date End Date [...] Active I25.10 Atherosclerotic hear t disease of [place] coronary artery without angina pectoris 01/05/2023 Active E78.5 Hyperlipidemia, unspecified 01/05/2023 00 Active Z47.81 Encounter for orthop edic aftercare following surgical amputation 01/05/2023 Active E08.9 Diabetes mellitus du e to underlying condition without complications 01/05/2023 Active VITAL SIGNS Date Time Diastolic blood pressure Systolic blood pressure Body height Body weight Temperature SpO2 Blood Sugar Pulse Respirations 726 35220 6 726 02657 4 62.00 mm[Hg] - Sitting 86.00 mm[Hg] - Sitting 123.40 NI 97.50 Tympanic 18.00/min 726 12515 6 80.00 mm[Hg] - Sitting 120.00 mm[Hg] - Sitting 726 54796 0 78.00 mm[Hg] - Lying Down 118.00 mm[Hg] - Lying Down 98.20 Forehead Scan 99.00 % 68.00/ min 726 68309 9 78.00 mm[Hg] - Sitting 118.00 mm[Hg] - Sitting 98.20 Tympanic 99.00 % 68.00/ min 727 27077 1 123.70 NI 727 17782 2 98.00 mm[Hg] - Sitting 127.00 mm[Hg] - Sitting 64.00/ min 727 94468 9 68.00 mm[Hg] - Sitting 134.00 mm[Hg] - Sitting 98.10 Forehead Scan 100.0 0% 73.00/ min 728 87668 0 68.00 mm[Hg] - Sitting 110.00 mm[Hg] - Sitting 97.60 Tympanic 97.00 % 72.00/ min 728 33654 6 78.00 mm[Hg] - Lying Down 195.00 mm[Hg] - Lying Down 97.80 Forehead Scan 96.00 % 70.00/ min 729 42012 0 51.00 mm[Hg] - Sitting 139.00 mm[Hg] - Sitting 97.00 Tympanic 98.00 % 65.00/ min 729 15966 0 78.00 mm[Hg] - Lying Down 130.00 mm[Hg] - Lying Down 97.20 Forehead Scan 95.00 % 79.00/ min 730 00942 3 65.00 mm[Hg] - Sitting 144.00 mm[Hg] - Sitting 97.80 Tympanic 96.00 % 60.00/ min 88944 730 34834 0 68.00 mm[Hg] - Lying Down 130.00 mm[Hg] - Lying Down 96.70 Forehead Scan 99.00 % 78.00/ min 78382 731 24200 7 72.00 mm[Hg] - Sitting 154.00 mm[Hg] - Sitting 97.00 Forehead Scan 95.00 % 99.00/ min 48397 731 72369 0 74.00 mm[Hg] - Lying Down 122.00 mm[Hg] - Lying Down 98.00 Forehead Scan 95.00 % 66.00/ min 43287 731 59048 0 98.00 Tympanic 95.00 % 66.00/ min 801 74311 0 69.00 mm[Hg] - Lying Down 130.00 mm[Hg] - Lying Down 97.60 Forehead Scan 95.00 % 69.00/ min 801 06871 1 69.00 mm[Hg] - Lying Down 130.00 mm[Hg] - Lying Down 130.40 NI 98.00 Tympanic 69.00/ min 18.00/min 801 15703 0 70.00 mm[Hg] - Sitting 160.00 mm[Hg] - Sitting 98.00 Forehead Scan 96.00 % 66.00/ min 802 04953 0 89.00 mm[Hg] - Lying Down 132.00 mm[Hg] - Lying Down 96.70 Tympanic 98.00 % 73.00/ min Immunizations Vaccine Date Status COVID-19 08/28/2020 Completed COVID-19 09/18/2020 Completed COVID-19 04/14/2021 Completed COVID-19 04/16/2022 Completed Influenza 03/22/2022 Completed (PPSV23)Pneumococcal 04/05/2019 Completed
--- OUTSIDE RECORDS SUMMARY | 2023-05-06 13:02 | External Medical Summary ---
Author Name Unknown Address Unknown Organization K01:LABORATORY [facility] - [address] [place] [address] Laboratory Report Ordering Provider Test Date Status HY,DEPAMPHILIS 04/17/2023 08:02:33 Final Observation Date Value Abnormality Reference (Units ) Status Vancomycin, level 04/17/2023 08:02:33 15.9 10 .0-40.0 (ug/mL) Final Performing Location LABORATORY [facility] - [address] [place] [address]
[2023-05-06] MEDS ORDERED: oxyCODONE HCL IR 5 MG TAB (IMMEDIATE RELEASE) PO STA ×2 (14:24→18:37)
--- NOTE | 2023-05-06 14:37 | XRay Report ---
XR chest 1V portable CLINICAL HISTORY: falls TECHNIQUE: Single frontal radiograph of the chest was obtained. Comparison: Comparison is made to chest radiograph 04/11/2023 FINDINGS: No lines and tubes are seen. Cardiomegaly is noted. The aortic arch is calcified. There is prominence and cephalization of the vasculature with Stiven B lines seen. No evidence of pleural effusion or pn eumothorax. IMPRESSION: Cardiomegaly and moderate pulmonary edema. ACT 112: Negative or not required by law. Electronically signed by: Richard Chirinos M.D. 05/06/2023 2:36 PM
--- NOTE | 2023-05-06 14:47 | XRay Report ---
XR foot LT min 3V routine CLINICAL HISTORY: s/p amputation, ?infection TECHNIQUE: 3 views of the left foot were obtained. Comparison: Comparison is made to left foot radiographs 03/14/2023 FINDINGS: No evidence of bony erosion is seen. 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 Vascular calcif ications are noted with soft tissue swelling. IMPRESSION: No radiographic evidence of osteomyelitis. If clinical concern remains, MRI is a more sensitive modal ity. Midfoot resection is seen and there is soft tissue swelling. ACT 112: Negative or not required by law. Electronically signed by: Richard Chirinos M.D. 05/06/2023 2:45 PM
[2023-05-06] MEDS ORDERED: CEFEPIME 2,000 MG/20 ML VIAL IV STA (15:09)
--- NOTE | 2023-05-06 15:16 | Emergency Department Note ---
Impression & Plan Diabetic infection of left foot, Acute pain of left foot, ESRD (end stage renal disease) on dialysis ED Provider Note Provider: Butch Soria MD DATE OF SERVICE: 05/06/2023 CHIEF COMPLAINT: Foot infection, smells HISTORY OF PRESENT ILLNESS: Patient is a 62-year-old female history of type 2 diabetes, end-stage renal disease Tuesday, CAD, PAD status post angioplasty, hypothyroidism, and left diabetic foot infection status post surgical debridement and partial amputation of left foot beginning of March presenting here today due to concerns regarding the left foot. Patient reports she is been getting her vancomycin dosing's at dialysis and went this morning. Noted last all day some increased pain in left foot but no fevers or shortness of breath. Denies significant abdominal pain. Reports a little bit of pain in her chest but fell when getting to the car. Is on Plavix as well as aspirin. Denies striking her head or headache. Reports home health came today and change the dressing her left foot and were very concerned about the appearance as well as a significant smell. Referred here for evaluation. States has been having some drainage. Called Dr. Dias's office and he was unavailable and nursing from the office referred her here for evaluation. Denies any other oral antibiotics at this time. No significant injury to the left foot or other pain in the left leg or issues with the right leg reported. Uses oxycodone at home for pain PAST MEDICAL HISTORY: As noted above MEDICATIONS: Reviewed home medication list includes vancomycin with dialysis SOCIAL HISTORY: Residing at home currently PHYSICAL EXAM: GENERAL: alert and oriented in no acute distress on stretcher Head: normocephalic and atraumatic EYES: No injection, discharge or icterus. NECK: Trachea midline. Supple. ENT: Mucous membranes pink and moist. LUNGS: Airway patent. No retractions. Breath sounds clear HEART: Regular rate and rhythm. Very slight right upper chest wall tenderness over area of small overlying bruising without crepitus ABDOMEN: Soft and non-tender, without guarding or rebound. SKIN: Acyanotic, warm, dry, without rashes EXTREMITIES: Patient with some scattered bruises particular in the upper extremities as well as the left leg with soft compartments of the arms and legs however. Patient with a bandaged left foot and once was taken down midfoot amputation noted with laterally some slight dehiscence of the wound with trace purulence and erythema. There is a black eschar and ulceration to the heel of the foot but redness does not extend to the ankle at this point. Soft and tender left calf and leg otherwise. Left foot is very malodorous. Right upper extremity fistula in place with thrill. Left upper extremity failed fistula by her report in place with mild thrill. NEUROLOGICAL: Moves all extremities. No aphasia. No facial droop or slurred speech. EK bpm normal sinus rhythm. No PVC or PAC. No acute ST segment elevation with a QTc of 455. CONTINUOUS CARDIAC MONITORING: was ordered and showed a heart rate of 70s bpm in normal sinus rhythm Patient's laboratory studies and imaging reviewed. Differential includes Viral syndrome, otitis, pharyngitis, pneumonia, influenza, meningitis, urinary tract infection, sepsis, bacteremia, traumatic injury, osteomyelitis as well as other pathologies. IMPRESSION/MEDICAL DECISION MAKING: Patient presenting with concerns regarding the left foot wound. Wound to left foot appears to have some eschar and ulceration but the midfoot to the area amputation does appear to have purulence and is malodorous. Concerns for infection. Patient likely without fever or hypotension. Doubt septic shock. No significant trauma reported. Obtained x-ray there to the left foot. Did have some fall getting to the car recently is on aspirin and Plavix. Some scattered bruising in the extremities and across the chest but no significant deformities otherwise appreciated. X-ray of the chest obtained without significant abnormality noted. Left foot x-ray per radiology without evidence of osteomyelitis apparent. Had dialysis vancomycin earlier today. Has had gram-positive coverage thus. Wound culture from the left foot as well as blood cultures sent. Given dialysis dependent nature will be careful avoid fluid overload. Lactate normal. COVID-negative. Basic labs obtained. Expanded antibiotic coverage discussed with pharmacist to cefepime for gram-negative coverage including Pseudomonas. Given her diabetic state dialysis dependent with this worsening wound and concerned could require further debridement will bring into the hospital for further evaluation. Inflammatory markers moderately elevated but decreased from previous. No significant leukocytosis. Urinalysis questionably infected and again would be covered by the cefepime she received here. Did place ultrasound-guided IV just proximal to the AV fistula (failed nonfunctional fistula) in the left upper arm due to difficult access after failed attempts by nursing and IV team. DIAGNOSIS: Left diabetic foot infection, end-stage renal disease on dialysis, type 2 diabetes DISPOSITION: Hospitalist will evaluate Patient was agreeable with this plan. Past Med/Surg History Medical History Anemia Anemia due to chronic kidney disease CAD (coronary artery disease) CHF (congestive heart failure) Depression DM II (diabetes mellitus, type II), controlled Encounter for pre-operative examination ESRD (end stage renal disease) on dialysis HD . Follows with Dr. Mckeon HTN (hypertension) Hyperlipidemia Hypothyroidism Open wound of left foot Osteomyelitis of left foot PAD (peripheral artery disease) Tobacco abuse Weakness Surgical History S/P drug eluting coronary stent placement Social History Smoking Status: Current every day smoker Tobacco Type: Cigarettes Cigarettes Per Day: 8 cigarettes per day; Second Hand Exposure: Yes; Do You Dip or Chew Tobacco: No; Hx Alcohol Use: No Hx Substance Use: No Preferred Language: Turkmen Communication Ability: Effective Credit Or Loans Officer Required: No Beliefs That Will Affect Care: None Current Living Situation: Spouse and Family Feels Safe at Home: Yes Assistive Devices: Denture - Upper, Denture - Lower, Walker and Wheelchair Allergies Allergies Allergy/AdvReac Type Severity Reaction Status Date / Time morphine Allergy Severe Hallucinati Verified 05/06/23 16:01 ng codeine Allergy Intermediate Redness of Verified 05/06/23 16:01 Skin prednisone Allergy Intermediate Itching Verified 05/06/23 16:01 Home Meds Home Medications Medication Instructions Recorded Confirmed albuterol sulfate 90 mcg/actuation 1 puff inhalation QID PRN bad cough 11/12/22 05/06/23 aerosol inhaler allopurinol 100 mg tablet 100 mg PO DAILY 11/12/22 05/06/23 ascorbic acid (vitamin C) 500 mg 500 mg PO DAILY 11/12/22 05/06/23 capsule aspirin 81 mg chewable tablet 81 mg PO DAILY 11/12/22 05/06/23 atorvastatin 40 mg tablet (Lipitor) 40 mg PO HS 11/12/22 05/06/23 cholecalciferol (vitamin D3) 50 50 mcg PO DAILY 11/12/22 05/06/23 mcg (2,000 unit) tablet clonidine HCl 0.1 mg tablet 0.1 mg PO DAILY 11/12/22 05/06/23 clopidogrel 75 mg tablet 75 mg PO DAILY 11/12/22 05/06/23 denosumab 60 mg/mL subcutaneous 60 mg subcut Q6M 11/12/22 05/06/23 syringe (Prolia) docusate sodium 100 mg capsule 100 mg PO DAILY PRN Constipation 11/12/22 05/06/23 (Colace) esomeprazole magnesium 40 mg 40 mg PO DAILY 11/12/22 05/06/23 capsule,delayed release (Nexium) ezetimibe 10 mg tablet 10 mg PO DAILY 11/12/22 05/06/23 furosemide 40 mg tablet (Lasix) 40 mg PO DAILY 11/12/22 05/06/23 isosorbide mononitrate 30 mg 30 mg PO HS 11/12/22 05/06/23 tablet,extended release 24 hr levothyroxine 125 mcg tablet 125 mcg PO QAM 11/12/22 05/06/23 lisinopril 40 mg tablet (Zestril) 40 mg PO DAILY 11/12/22 05/06/23 loratadine 10 mg tablet 10 mg PO DAILY PRN allergies 11/12/22 05/06/23 melatonin 10 mg capsule 10 mg PO HS 11/12/22 05/06/23 metoprolol tartrate 50 mg tablet See Rx Instructions .Route .COMPLEX 11/12/22 05/06/23 nitroglycerin 0.4 mg sublingual 0.4 mg sublingual DIRECTED PRN 11/12/22 05/06/23 tablet Chest Pain sevelamer carbonate 800 mg tablet 800 mg PO TIDM 11/12/22 05/06/23 vit B,C-folic ac 800 mcg-zinc 12.5 1 tab PO DAILY 11/12/22 05/06/23 mg-selen-D3 2,000 unit-vit E tablet (RenaPlex-D) calcium carbonate 500 mg-vitamin 1 tab PO BID 03/14/23 05/06/23 D3 10 mcg (400 unit) tablet (Oyster Shell Calcium-Vitamin D3) Previous Rx's Medication Instructions Recorded acetaminophen 325 mg tablet 650 mg (2 x 325 mg) PO Q4H PRN 01/05/23 fever or pain #0 tabs sennosides 8.6 mg tablet (Senokot) 17.2 mg (2 x 8.6 mg) PO BID #0 tabs 01/05/23 amlodipine 10 mg tablet 10 mg PO DAILY #30 tabs 04/07/23 calcitriol 0.25 mcg capsule 0.25 mcg PO QAM #30 caps 04/07/23 oxycodone 5 mg tablet 5 mg PO Q4H PRN Pain #15 tabs 04/07/23 Results & Data (ED) Vital Signs Vital Signs - 24 hr 05/06/23 12:59 05/06/23 14:51 05/06/23 16:04 Temperature 36.7 C Temperature Source Temporal Artery Scan Pulse Rate 67 72 Pulse Rate [Apical] 73 Respiratory Rate 17 18 Respiratory Effort / Characteristics Non-Labored Spontaneous Non-Labored Spontaneous Respiratory Depth Normal Normal Respiratory Pattern Regular Blood Pressure 172/62 H Blood Pressure [Right Arm] 200/82 H Blood Pressure Mean 98 Blood Pressure Mean [Right Arm] 121 Blood Pressure Position Sitting Blood Pressure Position [Right Arm] Lying Pulse Oximetry 100 96 Oxygen Delivery Method Room Air Room Air Sepsis Recent Fever Within 48 Hours No Sepsis New/Unexplained Change in Mental Status No Sepsis Action Taken by Nursing No Action Required 05/06/23 17:11 Temperature Temperature Source Pulse Rate Pulse Rate [Apical] 74 Respiratory Rate 18 Respiratory Effort / Characteristics Respiratory Depth Respiratory Pattern Blood Pressure Blood Pressure [Right Arm] 194/76 H Blood Pressure Mean Blood Pressure Mean [Right Arm] 115 Blood Pressure Position Blood Pressure Position [Right Arm] Lying Pulse Oximetry 95 Oxygen Delivery Method Room Air Sepsis Recent Fever Within 48 Hours Sepsis New/Unexplained Change in Mental Status Sepsis Action Taken by Nursing Laboratory Data 05/06/23 14:33 05/06/23 14:33 Lab Results 05/06/23 05/06/23 Range/Units 14:33 16:20 WBC 8.46 (4.8-10.8) K/ul RBC 2.86 L (4.20-5.40) M/uL Hgb 9.0 L (12.0-16.0) g/dl Hct 28.0 L (37.0-47.0) % MCV 97.9 (80.0-100.0) fL MCH 31.5 (25.0-34.0) pg MCHC 32.1 (32.0-36.0) g/dL RDW Std Deviation 56.2 H (36.4-46.3) fL RDW Coeff of Evette 15.6 H (11.5-14.5) % Plt Count 197 (130-400) K/uL MPV 10.0 (9.4-12.4) fL Immature Gran % (Auto) 0.4 % Neut % (Auto) 78.3 % Lymph % (Auto) 13.0 % [place] % (Auto) 7.4 % Eos % (Auto) 0.8 % Baso % (Auto) 0.1 % Neut # (Auto) 6.62 H (1.40-6.50) K/uL Lymph # (Auto) 1.10 L (1.20-3.40) K/uL Meade # (Auto) 0.63 H (0.11-0.59) K/uL Eos # (Auto) 0.07 (0.00-0.50) K/uL Baso # (Auto) 0.01 (0.00-0.20) K/uL Immature Gran # (Auto) 0.03 (0.01-0.20) K/uL ESR 50 H (0-30) mm/hr PT 11.5 (9.0-12.0) Seconds INR 1.1 (0.9-1.1) Sodium 133 L (136-145) mmol/L Potassium 3.7 (3.5-5.1) mmol/L Chloride 96 L (98-107) mmol/L Carbon Dioxide 34 H (21-32) mmol/L Anion Gap 3 (3-11) BUN 11 (6-23) mg/dl Creatinine 2.14 H (0.6-1.2) mg/dl Est Cr Clr Drug Dosing Not Reportable Est GFR ( Amer) 28.1 ml/min Est GFR (Non-Af Amer) 24.2 ml/min BUN/Creatinine Ratio 5.1 L (10-20) Glucose 147 H (70-99(Fasting)) mg/dl Lactate 1.2 (0.4-2.0) mmol/L Calcium 7.5 L (8.6-10.3) mg/dl Total Bilirubin 0.4 (0.2-1.0) mg/dl AST 20 (13-39) U/L ALT 15 (7-52) U/L Alkaline Phosphatase 102 (34-104) U/L Troponin I High Sens 19.9 H (0-14) pg/ml C-Reactive Protein 5.01 H (0-0.5) mg/dl Total Protein 5.9 L (6.0-8.3) gm/dl Albumin 2.6 L (3.4-5.0) gm/dl Globulin 3.3 (2.5-4.0) gm/dl Albumin/Globulin Ratio 0.8 L (0.9-2) Procalcitonin 0.19 (0-0.5) ng/ml Urine Color Dark Yellow Urine Appearance Turbid A (Clear) Urine pH >= 9.0 H (4.5-7.5) Ur Specific [place] 1.015 (1.000-1.030) Urine Protein 3+ H (Negative) Urine Glucose (UA) Negative (Negative) Urine Ketones Negative (Negative) Urine Blood Negative (Negative) Urine Nitrite Negative (Negative) Urine Bilirubin Negative (Negative) Urine Urobilinogen Negative (Negative) Ur Leukocyte Esterase 3+ H (Negative) Urine WBC (Auto) >30 H (0-5) /hpf Urine RBC (Auto) 0-4 (0-4) /hpf U Hyaline Cast (Auto) 1-5 (0-5) /lpf U Epithel Cells (Auto) >30 H (0-5) /lpf Urine Bacteria (Auto) 1+ H (Negative) Urine Yeast Not Reportable SARS-CoV-2, RNA, NAAT NEGATIVE (NEGATIVE) Administered Medications Discontinued Medications Cefepime HCl (Maxipime) 2,000 mg in 20 mls @ 5 mls/min IV NOW STA; Protocol Stop: 05/06/23 15:12 Last Admin: 05/06/23 16:01 Dose: 5 mls/min Documented By: VIDAL Oxycodone HCl (Oxycodone Hcl Ir 5 Mg Tab (Immediate Release)) 5 mg PO NOW STA Stop: 05/06/23 14:25 Last Admin: 05/06/23 14:31 Dose: 5 mg Documented By: SKB Imaging Data Radiologist's Impression: Foot X-Ray 05/06/23 13:54 XR foot LT min 3V routine CLINICAL HISTORY: s/p amputation, ?infection TECHNIQUE: 3 views of the left foot were obtained. Comparison: Comparison is made to left foot radiographs 03/14/2023 FINDINGS: No evidence of bony erosion is seen. 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 Vascular calcifications are noted with soft tissue swelling. IMPRESSION: No radiographic evidence of osteomyelitis. If clinical concern remains, MRI is a more sensitive modality. Midfoot resection is seen and there is soft tissue swelling. ACT 112: Negative or not required by law. Electronically signed by: Richard Chirinos M.D. 05/06/2023 2:45 PM Chest X-Ray 05/06/23 14:24 XR chest 1V portable CLINICAL HISTORY: falls TECHNIQUE: Single frontal radiograph of the chest was obtained. Comparison: Comparison is made to chest radiograph 04/11/2023 FINDINGS: No lines and tubes are seen. Cardiomegaly is noted. The aortic arch is calcified. There is prominence and cephalization of the vasculature with Stiven B lines seen. No evidence of pleural effusion or pneumothorax. IMPRESSION: Cardiomegaly and moderate pulmonary edema. ACT 112: Negative or not required by law. Electronically signed by: Richard Chirinos M.D. 05/06/2023 2:36 PM Discharge Plan Visit Data Chief Complaint: Foot Injury/Pain Stated Complaint: 4 toes removed, foot smells, foot pain ED Provider: Butch Soria Discharge Problem: Diabetic infection of left foot, Acute pain of left foot, ESRD (end stage renal disease) on dialysis Patient Disposition: Being Evaluated by Hospitalist Forms Stand Alone Forms: My [facility] Prescriptions Prescriptions: No Action calcium carbonate-vitamin D3 [Oyster Shell Calcium-Vit D3] 500 mg-10 mcg (400 unit) tablet 1 tab PO BID amlodipine 10 mg tablet 10 mg PO DAILY Qty: 30 0RF calcitriol 0.25 mcg Capsule 0.25 mcg PO QAM Qty: 30 0RF oxycodone 5 mg tablet 5 mg PO Q4H PRN (Reason: Pain) Qty: 15 0RF furosemide [Lasix] 40 mg tablet 40 mg PO DAILY atorvastatin [Lipitor] 40 mg tablet 40 mg PO HS clonidine HCl 0.1 mg tablet 0.1 mg PO DAILY isosorbide mononitrate 30 mg tablet extended release 24 hr 30 mg PO HS clopidogrel 75 mg tablet 75 mg PO DAILY allopurinol 100 mg tablet 100 mg PO DAILY esomeprazole magnesium [Nexium] 40 mg capsule,delayed release(DR/EC) 40 mg PO DAILY levothyroxine 125 mcg tablet 125 mcg PO QAM metoprolol tartrate 50 mg tablet See Rx Instructions .ROUTE .COMPLEX Rx Instructions: Take 50mg by mouth in the morning and 100mg by mouth at bedtime nitroglycerin 0.4 mg tablet, sublingual 0.4 mg sublingual DIRECTED PRN (Reason: Chest Pain) Rx Instructions: Take 1 tablet by mouth every 5 minutes X3 for chest pain as needed aspirin 81 mg tablet,chewable 81 mg PO DAILY albuterol sulfate 90 mcg/actuation HFA aerosol inhaler 1 puff INHALATION QID PRN (Reason: bad cough) lisinopril [Zestril] 40 mg tablet 40 mg PO DAILY loratadine 10 mg tablet 10 mg PO DAILY PRN (Reason: allergies) ezetimibe 10 mg tablet 10 mg PO DAILY sevelamer carbonate 800 mg tablet 800 mg PO TIDM cholecalciferol (vitamin D3) 50 mcg (2,000 unit) tablet 50 mcg PO DAILY Prolia 60 mg/mL syringe 60 mg SUBCUT Q6M melatonin 10 mg capsule 10 mg PO HS ascorbic acid (vitamin C) 500 mg capsule 500 mg PO DAILY RenaPlex-D 800 mcg-12.5 mg -2,000 unit tablet 1 tab PO DAILY docusate sodium [Colace] 100 mg Capsule 100 mg PO DAILY PRN (Reason: Constipation) acetaminophen 325 mg Tablet 650 mg PO Q4H PRN (Reason: fever or pain) Qty: 0 0RF sennosides [Senokot] 8.6 mg Tablet 17.2 mg PO BID Qty: 0 0RF Referrals Referrals: [facility] [Primary Care Provider] -
[2023-05-06 15:19] LABS: Basophils # (auto) 0.01 K/uL (0.00-0.20); Basophils % (auto) 0.1 %; Eosinophils # (auto) 0.07 K/uL (0.00-0.50); Eosinophils % (auto) 0.8 %; Immature Granulocytes # (auto) 0.03 K/uL (0.01-0.20); Immature Granulocytes % (auto) 0.4 %; Mean Corpuscular Hemoglobin 31.5 pg (25.0-34.0); Mean Corpuscular Hgb Conc 32.1 g/dL (32.0-36.0); Mean Corpuscular Volume 97.9 fL (80.0-100.0); Monocytes # (auto) 0.63 K/uL (0.11-0.59); Monocytes % (auto) 7.4 %; Neutrophils # (auto) 6.62 K/uL (1.40-6.50); Neutrophils % (auto) 78.3 %; Platelet Count 197 K/uL (130-400); RDW Coefficient of Variation 15.6 % (11.5-14.5); RDW Standard Deviation 56.2 fL (36.4-46.3); Red Blood Count 2.86 M/uL (4.20-5.40); White Blood Count 8.46 K/ul (4.8-10.8)
[2023-05-06 15:35] LABS: Alanine Aminotransferase 15 U/L (7-52); Albumin Globulin Ratio 0.8 (0.9-2); Albumin Level 2.6 gm/dl (3.4-5.0); Alkaline Phosphatase 102 U/L (34-104); Anion Gap 3 (3-11); Aspartate Aminotransferase 20 U/L (13-39); BUN Creatinine Ratio 5.1 (10-20); Bilirubin,Total 0.4 mg/dl (0.2-1.0); Blood Urea Nitrogen 11 mg/dl (6-23); C Reactive Protein 5.01 mg/dl (0-0.5); Calcium 7.5 mg/dl (8.6-10.3); Carbon Dioxide 34 mmol/L (21-32); Chloride 96 mmol/L (98-107); Est GFR (African American) 28.1 ml/min; Est GFR (Non-African American) 24.2 ml/min; Globulin 3.3 gm/dl (2.5-4.0); Glucose 147 mg/dl (70-99(Fasting)); Potassium 3.7 mmol/L (3.5-5.1); Sodium 133 mmol/L (136-145); Total Protein 5.9 gm/dl (6.0-8.3)
[2023-05-06 15:41] LABS: Troponin I High Sensitivity 19.9 pg/ml (0-14)
[2023-05-06 15:44] LABS: INR 1.1 (0.9-1.1); Prothrombin Time 11.5 Seconds (9.0-12.0)
[2023-05-06 16:35] LABS: Appearance Urine Turbid (Clear); Bacteria Urine Automated 1+ (Negative); Bilirubin Urine Negative (Negative); Blood Urine Negative (Negative); Color Urine Dark Yellow; Epithelial Cell Urine Auto >30 /lpf (0-5); Glucose Urine UA Negative (Negative); Ketones Urine Negative (Negative); Leukocyte Esterase Urine 3+ (Negative); Nitrite Urine Negative (Negative); Protein Urine 3+ (Negative); RBC Urine Automated 0-4 /hpf (0-4); Specific Gravity Urine 1.015 (1.000-1.030); Urobilinogen Urine Negative (Negative); WBC Urine Automated >30 /hpf (0-5); pH Urine >= 9.0 (4.5-7.5)
--- NOTE | 2023-05-06 17:34 | History & Physical Report ---
Date of Service May 06, 2023 Assessment & Plan (1) Diabetic infection of left foot: Plan: Malodorous left foot infection; sent in while patient was at dialysis on 05/[address] Dias on 03/15 with partial foot amputation Wound culture pending Left foot x-ray revealed no evidence of osteomyelitis MRI left ankle ordered, pending Patient has been taking vancomycin on dialysis days for the past 5 weeks to cover for osteomyelitis Vancomycin consult placed; consider daptomycin as an alternative Cefepime 2000 mg IV q8h Hold oxycodone 5 mg p.o. q6h as needed for pain Dilaudid 0.5-1.0 IV q4h as needed for pain; monitor for oversedation/respiratory distress A.m. 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 Dialysis diet (3) DM II (diabetes mellitus, type II), controlled: Plan: Last A1c was 5.6% on 11/13/2022 Glucose 147 on arrival Patient is not currently on any diabetic medications at home SSI while inpatient; target BSG range 110-140, CF 50, carb ratio 20 T2DM diet Adjust regimen as needed AM A1c (4) UTI (urinary tract infection): Plan: UA positive on arrival Clinically, patient denies burning with urination Cefepime (as above) (5) CHF (congestive heart failure): Plan: Continue Lasix (6) HTN (hypertension): Plan: BP elevated at 194/76 at time of admission Continue isosorbide mononitrate, metoprolol Hold amlodipine, lisinopril Plan Disposition: Admit to [facility] telemetry DNR/DNI T2DM, dialysis renal diet VTE PPx: Heparin 5000u SQ twice daily History of Present Illness Chief Complaint: Foot injury/pain Primary Care Provider: Quyen Salazar [place] is a 62-year-old female with PMH of ESRD on HD M/W/F, CAD, PAD s/p angioplasty, hypothyroidism, T2DM, and left diabetic foot infection s/p surgical debridement and partial left foot amputation on 03/15/[address] Dias. She presented for malodorous left foot and potential infection on 05/06. Patient received dialysis this morning, and the nurses noted that the foot was malodorous. Home health care nurse on Thursday 05/03 also noted that it was starting to smell. Patient endorses sharp, constant left foot pain; 03/22. She has been taking oxycodone for it (10 mg at night) which makes it bearable. Patient has been receiving vancomycin at dialysis to cover for osteomyelitis x5 weeks. Dr. Dias is unavailable until 05/11. Patient endorses tobacco cigarette smoking; 5 cigarettes/daily. She denies alcohol use, vaping, and recreational drug use. Patient took morning medications, and reports no recent changes to medication. She is hypertensive at 194/76 at time of admission. ED course: Oxycodone 5 mg Cefepime 2000 mg Patient received vancomycin earlier today at HD, and has been receiving for osteomyelitis coverage ROS: Patient endorses infrequent urination and L foot pain. Patient denies fever, chills, sweating, NOBLES, dizziness, lightheadedness, CP, SOB, abdominal, N/V/D, burning with urination, numbness/tingling in the LEs. Allergies Allergy/AdvReac Type Severity Reaction Status Date / Time morphine Allergy Severe Hallucinati Verified 05/06/23 16:01 ng codeine Allergy Intermediate Redness of Verified 05/06/23 16:01 Skin prednisone Allergy Intermediate Itching Verified 05/06/23 16:01 Home Medications Medication Instructions Recorded Confirmed Type albuterol sulfate 90 mcg/actuation 1 puff inhalation QID PRN bad cough 11/12/22 05/06/23 History aerosol inhaler allopurinol 100 mg tablet 100 mg PO DAILY 11/12/22 05/06/23 History ascorbic acid (vitamin C) 500 mg 500 mg PO DAILY 11/12/22 05/06/23 History capsule aspirin 81 mg chewable tablet 81 mg PO DAILY 11/12/22 05/06/23 History atorvastatin 40 mg tablet (Lipitor) 40 mg PO HS 11/12/22 05/06/23 History cholecalciferol (vitamin D3) 50 50 mcg PO DAILY 11/12/22 05/06/23 History mcg (2,000 unit) tablet clonidine HCl 0.1 mg tablet 0.1 mg PO DAILY 11/12/22 05/06/23 History clopidogrel 75 mg tablet 75 mg PO DAILY 11/12/22 05/06/23 History denosumab 60 mg/mL subcutaneous 60 mg subcut Q6M 11/12/22 05/06/23 History syringe (Prolia) docusate sodium 100 mg capsule 100 mg PO DAILY PRN Constipation 11/12/22 05/06/23 History (Colace) esomeprazole magnesium 40 mg 40 mg PO DAILY 11/12/22 05/06/23 History capsule,delayed release (Nexium) ezetimibe 10 mg tablet 10 mg PO DAILY 11/12/22 05/06/23 History furosemide 40 mg tablet (Lasix) 40 mg PO DAILY 11/12/22 05/06/23 History isosorbide mononitrate 30 mg 30 mg PO HS 11/12/22 05/06/23 History tablet,extended release 24 hr levothyroxine 125 mcg tablet 125 mcg PO QAM 11/12/22 05/06/23 History lisinopril 40 mg tablet (Zestril) 40 mg PO DAILY 11/12/22 05/06/23 History loratadine 10 mg tablet 10 mg PO DAILY PRN allergies 11/12/22 05/06/23 History melatonin 10 mg capsule 10 mg PO HS 11/12/22 05/06/23 History metoprolol tartrate 50 mg tablet See Rx Instructions .Route .COMPLEX 11/12/22 05/06/23 History nitroglycerin 0.4 mg sublingual 0.4 mg sublingual DIRECTED PRN 11/12/22 05/06/23 History tablet Chest Pain sevelamer carbonate 800 mg tablet 800 mg PO TIDM 11/12/22 05/06/23 History vit B,C-folic ac 800 mcg-zinc 12.5 1 tab PO DAILY 11/12/22 05/06/23 History mg-selen-D3 2,000 unit-vit E tablet (RenaPlex-D) acetaminophen 325 mg tablet 650 mg (2 x 325 mg) PO Q4H PRN 01/05/23 05/06/23 Rx fever or pain #0 tabs sennosides 8.6 mg tablet (Senokot) 17.2 mg (2 x 8.6 mg) PO BID #0 tabs 01/05/23 05/06/23 Rx calcium carbonate 500 mg-vitamin 1 tab PO BID 03/14/23 05/06/23 History D3 10 mcg (400 unit) tablet (Oyster Shell Calcium-Vitamin D3) amlodipine 10 mg tablet 10 mg PO DAILY #30 tabs 04/07/23 05/06/23 Rx calcitriol 0.25 mcg capsule 0.25 mcg PO QAM #30 caps 04/07/23 05/06/23 Rx oxycodone 5 mg tablet 5 mg PO Q4H PRN Pain #15 tabs 04/07/23 05/06/23 Rx Past Med/Surg History Medical History Anemia due to chronic kidney disease Depression Open wound of left foot PAD (peripheral artery disease) Encounter for pre-operative examination ESRD (end stage renal disease) on dialysis HD Follows with Dr. Mike Espinal CHF (congestive heart failure) Osteomyelitis of left foot Hypothyroidism Anemia Tobacco abuse Hyperlipidemia HTN (hypertension) CAD (coronary artery disease) DM II (diabetes mellitus, type II), controlled Surgical History S/P drug eluting coronary stent placement Social History Smoking Status: Current every day smoker Tobacco Type: Cigarettes Cigarettes Per Day: 5; Second Hand Exposure: No; Do You Dip or Chew Tobacco: No; Hx Alcohol Use: No Hx Substance Use: No Preferred Language: Swedish Communication Ability: Effective Management Liaison Required: No Beliefs That Will Affect Care: None Current Living Situation: Spouse and Family Other Information That Helps Us Care for You: No Feels Safe at Home: Yes Safety Concerns: Feels Safe At This Time Assistive Devices: Denture - Upper, Denture - Lower, Glasses and Wheelchair Review of Systems 2 Review of Systems: See HPI above Physical Exam 2 Physical Exam: General: no acute distress; non-toxic appearing; well-nourished; cooperative HEENT: normocephalic, atraumatic; no scleral icterus; PERRLA w/ EOMs intact; moist mucus membrane; vision and hearing grossly intact Neck: supple; no JVD; no lymphadenopathy; trachea midline Skin: warm, dry without signs of tenting; no cyanosis; no rashes, bruising, lesions, or erythema noted CV: chest wall NTP; RRR; S1/S2 normal; no murmurs/rubs/gallops; radial pulses intact, symmetric; pulses intact in the RLE DP, and PT Lungs: no acute respiratory distress; symmetrical chest wall expansion; clear breath sounds across all lung todd w/o adventitious sounds; no wheezing ABD: Soft, NTP; BS present; no rebound/guarding; no ascites; no distention; negative CVA tenderness LLE: Malodorous left foot; eschar on L heel, and purulent drainage from wound site (see photos below) RLE: Missing first digit on right foot; +1 pitting edema extending from the foot to the knee, nonerythematous; scaly, brown MSK: no tics or fasciculations; no edema noted in the LEs b/l Neuro: A&Ox3; normal mood and affect; fluent speech; CN2-12 intact; no focal deficits; sensation grossly intact Results & Data Results & Data Vital Signs (Past 12 Hours) Vital Signs Temp Pulse Pulse Resp BP BP Pulse Ox 05/06/23 17:11 74 18 194/76 H 95 05/06/23 16:04 73 18 200/82 H 96 05/06/23 14:51 72 05/06/23 12:59 36.7 C 67 17 172/62 H 100 O2 Del Method 05/06/23 17:11 Room Air 05/06/23 16:04 Room Air 05/06/23 14:51 05/06/23 12:59 Room Air Laboratory Results Abnormal lab results 05/06/23 05/06/23 Range/Units 14:33 16:20 RBC 2.86 L (4.20-5.40) M/uL Hgb 9.0 L (12.0-16.0) g/dl Hct 28.0 L (37.0-47.0) % RDW Std Deviation 56.2 H (36.4-46.3) fL RDW Coeff of Evette 15.6 H (11.5-14.5) % Neut # (Auto) 6.62 H (1.40-6.50) K/uL Lymph # (Auto) 1.10 L (1.20-3.40) K/uL [place] # (Auto) 0.63 H (0.11-0.59) K/uL ESR 50 H (0-30) mm/hr Sodium 133 L (136-145) mmol/L Chloride 96 L (98-107) mmol/L Carbon Dioxide 34 H (21-32) mmol/L Creatinine 2.14 H (0.6-1.2) mg/dl BUN/Creatinine Ratio 5.1 L (10-20) Glucose 147 H (70-99(Fasting)) mg/dl Calcium 7.5 L (8.6-10.3) mg/dl Troponin I High Sens 19.9 H (0-14) pg/ml C-Reactive Protein 5.01 H (0-0.5) mg/dl Total Protein 5.9 L (6.0-8.3) gm/dl Albumin 2.6 L (3.4-5.0) gm/dl Albumin/Globulin Ratio 0.8 L (0.9-2) Urine Appearance Turbid A (Clear) Urine pH >= 9.0 H (4.5-7.5) Urine Protein 3+ H (Negative) Ur Leukocyte Esterase 3+ H (Negative) Urine WBC (Auto) >30 H (0-5) /hpf U Epithel Cells (Auto) >30 H (0-5) /lpf Urine Bacteria (Auto) 1+ H (Negative) Diagnostic Findings Foot X-Ray 05/06/23 13:54 XR foot LT min 3V routine CLINICAL HISTORY: s/p amputation, ?infection TECHNIQUE: 3 views of the left foot were obtained. Comparison: Comparison is made to left foot radiographs 03/14/2023 FINDINGS: No evidence of bony erosion is seen. 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 Vascular calcifications are noted with soft tissue swelling. IMPRESSION: No radiographic evidence of osteomyelitis. If clinical concern remains, MRI is a more sensitive modality. Midfoot resection is seen and there is soft tissue swelling. ACT 112: Negative or not required by law. Electronically signed by: Richard Chirinos M.D. 05/06/2023 2:45 PM Chest X-Ray 05/06/23 14:24 XR chest 1V portable CLINICAL HISTORY: falls TECHNIQUE: Single frontal radiograph of the chest was obtained. Comparison: Comparison is made to chest radiograph 04/11/2023 FINDINGS: No lines and tubes are seen. Cardiomegaly is noted. The aortic arch is calcified. There is prominence and cephalization of the vasculature with Stiven B lines seen. No evidence of pleural effusion or pneumothorax. IMPRESSION: Cardiomegaly and moderate pulmonary edema. ACT 112: Negative or not required by law. Electronically signed by: Richard Chirinos M.D. 05/06/2023 2:36 PM Code Status & VTE Plan Code Status DNR/DNI VTE Prophylaxis Plan VTE Prophylaxis will be ordered: Yes Supervising Physician Co-Signing Physician Notes Patient seen and examined, chart reviewed, case discussed with Mark Brannon PA-C and I agree with the assessment and plan as above except as otherwise noted Labs and images reviewed Jacqui is a 62-year-old female with past medical history of DM, ESRD on dialysis, CHF, and hypertension who presents with a left diabetic foot infection. Patient underwent dialysis 112 and was referred for concern of malodorous DFI. She has a prior partial amputation with Dr. Dias on 03/15/2023. ESR and CRP are elevated. Troponin minimally elevated 19.9 without chest pain. This is trended. Procalcitonin is negative. No radiographic evidence of osteomyelitis however patient is with history of operative intervention and severe DFI, at bedside she continues to have pain has eschar over the anterior and lateral foot and is diffusely tender and warm. See photo on admitting H&P exam she endorses that she has had phantom pain continued since her prior forefoot resection and this has not changed. She does feel the foot has approximately continue to be warm and tender, and pain has increased in the last 48 hours. She has pain on ankle dorsiflexion/plantarflexion MRI ordered. Patient is not septic on admission. Recommend continuing cefepime. Recieved vanco with dialysis this morning. Continued with HD dosing. Podiatry consulted. Nephrology consulted to continue MWF dialysis, currently no acute volume overload and potassium is normal. Agree with assessment above PG Care Time/CCT Total # of Minutes Spent Total Time Spent with Patient: Total time spent is greater than 50% in coordination of care (as documented) at patient's floor/unit and/or counseling patient: [place] [address] INT INP/OBS CARE 3/75MIN Patient Type Established Medical Decision Making High Complexity Diagnoses Diabetic infection of left foot E11.628; L08.9 ESRD (end stage renal disease) on dialysis N18.6; Z99.2 DM II (diabetes mellitus, type II), controlled E11.9 UTI (urinary tract infection) N39.0 CHF (congestive heart failure) I50.9 HTN (hypertension) I10
[2023-05-06 20:08] LABS: Magnesium 1.8 mg/dl (1.7-2.4)
[2023-05-06] MEDS ORDERED: NALOXONE HCL 0.4 MG/1 ML VIAL/CARP IV PRN (20:39)
[2023-05-06] MEDS: HYDROmorphone INJ 1 MG/ML SYRINGE IV PRN (20:50)
[2023-05-06] MEDS ORDERED: GLUCOSE 40% GEL 15 GM TUBE PO PRN (21:41)
[2023-05-06] MEDS ORDERED: NITROGLYCERIN SL 0.4 MG/TAB TAB SL PRN (21:41)
[2023-05-06] MEDS ORDERED: ALBUTEROL HFA 8 GM INHALER INH PRN (21:41)
[2023-05-06] MEDS ORDERED: GLUCAGON FOR INJ 1 MG VIAL SQ PRN (21:41)
[2023-05-06] MEDS ORDERED: CARBOHYDRATES FOR HYPOGLYCEMIA PO PRN (21:41)
[2023-05-06] MEDS ORDERED: ACETAMINOPHEN 325 MG TAB PO PRN (21:41)
[2023-05-06] MEDS ORDERED: GLUCOSE 10 TAB/TUBE PO PRN (21:41)
[2023-05-06] MEDS ORDERED: LORATADINE 10 MG TAB PO PRN (21:41)
[2023-05-06] MEDS ORDERED: DEXTROSE 50% 50 ML SYRINGE IV PRN (21:41)
[2023-05-06] MEDS ORDERED: VANCOMYCIN CONSULT ACTIVE PRN (21:41)
--- NOTE | 2023-05-06 21:53 | Orthopedic Consultation ---
Date of Consultation May 06, 2023 Assessment & Plan (1) Diabetic infection of left foot: Patient seen and evaluated in [facility] Emergency Room Pod C room C08. Patient has been counseled multiple times for Left below knee amputation and previously declined. She relates she discussed with today and is now open to BKA if warranted. We did discuss limb salvage if possible however this is less likely. Awaiting MRI images and results. Thank you for allowing me to participate in the care of this Patient. Will continue to follow while in house. (2) DM II (diabetes mellitus, type II), controlled: History of Present Illness Attending Physician: Hermilo Mayfield MD History of Present Illness Patient is a pleasant, 62-year-old female seen in [facility] Emergency Room POD C room C08 for left foot malodorous wound. Patient has a past medical history significant for ESRD on HD M/W/F, CAD, PAD s/p angioplasty, hypothyroidism, T2DM, and left diabetic foot non healing transmetatarsal amputation wound (DOS: 03/15/23). Patient has been counseled multiple times for Left below knee amputation. She relates she discussed with today and is now open to BKA if warranted. She received dialysis this morning, and the nurses noted that the foot was malodorous. Patient has been receiving vancomycin at dialysis to cover for osteomyelitis x5 weeks. Patient endorses tobacco cigarette smoking; 5 cigarettes/daily. Allergies Allergy/AdvReac Type Severity Reaction Status Date / Time morphine Allergy Severe Hallucinati Verified 05/06/23 16:01 ng codeine Allergy Intermediate Redness of Verified 05/06/23 16:01 Skin prednisone Allergy Intermediate Itching Verified 05/06/23 16:01 Home Medications Medication Instructions Recorded Confirmed Type albuterol sulfate 90 mcg/actuation 1 puff inhalation QID PRN bad cough 11/12/22 05/06/23 History aerosol inhaler allopurinol 100 mg tablet 100 mg PO DAILY 11/12/22 05/06/23 History ascorbic acid (vitamin C) 500 mg 500 mg PO DAILY 11/12/22 05/06/23 History capsule aspirin 81 mg chewable tablet 81 mg PO DAILY 11/12/22 05/06/23 History atorvastatin 40 mg tablet (Lipitor) 40 mg PO HS 11/12/22 05/06/23 History cholecalciferol (vitamin D3) 50 50 mcg PO DAILY 11/12/22 05/06/23 History mcg (2,000 unit) tablet clonidine HCl 0.1 mg tablet 0.1 mg PO DAILY 11/12/22 05/06/23 History clopidogrel 75 mg tablet 75 mg PO DAILY 11/12/22 05/06/23 History denosumab 60 mg/mL subcutaneous 60 mg subcut Q6M 11/12/22 05/06/23 History syringe (Prolia) docusate sodium 100 mg capsule 100 mg PO DAILY PRN Constipation 11/12/22 05/06/23 History (Colace) esomeprazole magnesium 40 mg 40 mg PO DAILY 11/12/22 05/06/23 History capsule,delayed release (Nexium) ezetimibe 10 mg tablet 10 mg PO DAILY 11/12/22 05/06/23 History furosemide 40 mg tablet (Lasix) 40 mg PO DAILY 11/12/22 05/06/23 History isosorbide mononitrate 30 mg 30 mg PO HS 11/12/22 05/06/23 History tablet,extended release 24 hr levothyroxine 125 mcg tablet 125 mcg PO QAM 11/12/22 05/06/23 History lisinopril 40 mg tablet (Zestril) 40 mg PO DAILY 11/12/22 05/06/23 History loratadine 10 mg tablet 10 mg PO DAILY PRN allergies 11/12/22 05/06/23 History melatonin 10 mg capsule 10 mg PO HS 11/12/22 05/06/23 History metoprolol tartrate 50 mg tablet See Rx Instructions .Route .COMPLEX 11/12/22 05/06/23 History nitroglycerin 0.4 mg sublingual 0.4 mg sublingual DIRECTED PRN 11/12/22 05/06/23 History tablet Chest Pain sevelamer carbonate 800 mg tablet 800 mg PO TIDM 11/12/22 05/06/23 History vit B,C-folic ac 800 mcg-zinc 12.5 1 tab PO DAILY 11/12/22 05/06/23 History mg-selen-D3 2,000 unit-vit E tablet (RenaPlex-D) acetaminophen 325 mg tablet 650 mg (2 x 325 mg) PO Q4H PRN 01/05/23 05/06/23 Rx fever or pain #0 tabs sennosides 8.6 mg tablet (Senokot) 17.2 mg (2 x 8.6 mg) PO BID #0 tabs 01/05/23 05/06/23 Rx calcium carbonate 500 mg-vitamin 1 tab PO BID 03/14/23 05/06/23 History D3 10 mcg (400 unit) tablet (Oyster Shell Calcium-Vitamin D3) amlodipine 10 mg tablet 10 mg PO DAILY #30 tabs 04/07/23 05/06/23 Rx calcitriol 0.25 mcg capsule 0.25 mcg PO QAM #30 caps 04/07/23 05/06/23 Rx oxycodone 5 mg tablet 5 mg PO Q4H PRN Pain #15 tabs 04/07/23 05/06/23 Rx Patient History Medical History Anemia due to chronic kidney disease Depression Open wound of left foot PAD (peripheral artery disease) Encounter for pre-operative examination ESRD (end stage renal disease) on dialysis HD . Follows with Dr. Mike Espinal CHF (congestive heart failure) Osteomyelitis of left foot Hypothyroidism Anemia Tobacco abuse Hyperlipidemia HTN (hypertension) CAD (coronary artery disease) DM II (diabetes mellitus, type II), controlled Surgical History S/P drug eluting coronary stent placement Social History Smoking Status: Current every day smoker Tobacco Type: Cigarettes Cigarettes Per Day: 8 cigarettes per day; Second Hand Exposure: Yes; Do You Dip or Chew Tobacco: No; Hx Alcohol Use: No Hx Substance Use: No Preferred Language: Frisian Communication Ability: Effective Outdoor Advertising Leasing Agent Required: No Beliefs That Will Affect Care: None Current Living Situation: Spouse and Family Feels Safe at Home: Yes Assistive Devices: Denture - Upper, Denture - Lower, Walker and Wheelchair Review of Systems Review of Systems: All systems reviewed & are unremarkable except as noted in HPI & below Physical Exam Constitutional: cooperative and comfortable Eyes: normal visual todd by confrontation Neck: normal visual inspection and trachea midline Respiratory: normal respiratory effort Cardiovascular: Rate/Rhythm: regular rate and regular rhythm Musculoskeletal: Extremities: + amputation noted (Left transmetatarsal amputation) Skin: + ulcer (Left TMA open wound, adjacent e rythema and malodor) Neurologic: moves all extremities (Decreased epicritic sensation) Psychiatric: Orientation: alert and oriented x 3 Results & Data Vital Signs (Past 12 Hours) Vital Signs Temp Pulse Pulse Resp BP BP Pulse Ox 05/06/23 19:39 81 18 194/70 H 92 05/06/23 18:52 76 05/06/23 17:11 74 18 194/76 H 95 05/06/23 16:04 73 18 200/82 H 96 05/06/23 14:51 72 05/06/23 12:59 36.7 C 67 17 172/62 H 100 O2 Del Method 05/06/23 19:39 Room Air 05/06/23 18:52 05/06/23 17:11 Room Air 05/06/23 16:04 Room Air 05/06/23 14:51 05/06/23 12:59 Room Air
[2023-05-06] MEDS: METOPROLOL TARTRATE 50 MG TAB PO SCH (22:21)
[2023-05-06] MEDS: SENNA 8.6 MG TAB PO SCH (22:21)
[2023-05-06] MEDS: ATORVASTATIN 40 MG TAB PO SCH (22:22)
[2023-05-06] MEDS: ISOSORBIDE MONO EXTENDED REL 30 MG TABCR PO SCH (22:22)
[2023-05-06] MEDS: HEPARIN SOD 5,000 UNIT/0.5 ML VIAL SQ SCH (22:22)
[2023-05-06] MEDS: INSULIN ASPART PER UNIT CHARGE SC SCH (22:28)
--- NOTE | 2023-05-07 00:16 | Magnetic Resonance Report ---
Exam(s): MRI LEFT ANKLE Without Contrast EXAM: MR Left Lower Extremity Without Intravenous Contrast, Ankle CLINICAL HISTORY: Osteomyelitis. TECHNIQUE: Multiplanar magnetic resonance images of the left ankle without intravenous contrast. COMPARISON: MRI ankle 03/14/2023 FINDINGS: Limitations: Significantly limited examination as the patient did not tolerate the entirety of the exam and there is significant patient motion. Bones/joints: Subtle hypointensity of the calcaneal bone on T1 imaging could relate to underlying edema and as such osteomyelitis. There are surgical changes of a transmetatarsal amputation. No acute fracture. IMPRESSION: 1. Significantly limited examination as the patient did not tolerate the entirety of the exam and there is significant patient motion. 2. Subtle hypointensity of the calcaneal bone on T1 imaging could relate to underlying edema and as such osteomyelitis. Consider repeat MRI with T2-weighted sequences. Electronically signed by: Pilar Coleman MD 05/07/23 00:15 AM
[2023-05-07] MEDS: HYDROmorphone INJ 1 MG/ML SYRINGE IV PRN ×2 (01:03→06:11)
[2023-05-07] MEDS: LEVOTHYROXINE SODIUM 125 MCG TABLET PO SCH (06:01)
[2023-05-07 06:27] LABS: Basophils # (auto) 0.02 K/uL (0.00-0.20); Basophils % (auto) 0.3 %; Eosinophils # (auto) 0.09 K/uL (0.00-0.50); Eosinophils % (auto) 1.2 %; Hematocrit (blood only) 27.7 % (37.0-47.0); Hemoglobin 8.7 g/dl (12.0-16.0); Immature Granulocytes # (auto) 0.02 K/uL (0.01-0.20); Immature Granulocytes % (auto) 0.3 %; Lymphocytes # (auto) 1.19 K/uL (1.20-3.40); Mean Corpuscular Hemoglobin 31.2 pg (25.0-34.0); Mean Corpuscular Hgb Conc 31.4 g/dL (32.0-36.0); Mean Corpuscular Volume 99.3 fL (80.0-100.0); Mean Platelet Volume 9.8 fL (9.4-12.4); Monocytes # (auto) 0.52 K/uL (0.11-0.59); Neutrophils # (auto) 5.59 K/uL (1.40-6.50); Neutrophils % (auto) 75.2 %; Platelet Count 191 K/uL (130-400); RDW Coefficient of Variation 15.7 % (11.5-14.5); RDW Standard Deviation 56.8 fL (36.4-46.3); Red Blood Count 2.79 M/uL (4.20-5.40); White Blood Count 7.43 K/ul (4.8-10.8)
[2023-05-07 06:50] LABS: BUN Creatinine Ratio 5.7 (10-20); C Reactive Protein 6.52 mg/dl (0-0.5); Calcium 8.1 mg/dl (8.6-10.3); Creatinine Clr Calc Pharmacy 16.5 ml/min; Est GFR (Non-African American) 17.3 ml/min; Potassium 3.9 mmol/L (3.5-5.1)
[2023-05-07 08:20] LABS: Estimated Average Glucose 88 mg/dl; Hemoglobin A1C 4.7 % (4.5-5.6)
--- NOTE | 2023-05-07 08:30 | Electrocardiogram Report ---
Test Reason : Blood Pressure : / mmHG Vent. Rate : 072 BPM Atrial Rate : 072 BPM P-R Int : 156 ms QRS Dur : 094 ms QT Int : 416 ms P-R-T Axes : 041 -22 046 degrees QTc Int : 455 ms Normal sinus rhythm Moderate voltage criteria for LVH, may be normal variant ( R in aVL , [place] product ) Borderline ECG When compared with ECG of 11-APR-2023 04:18, Vent. rate has increased BY 25 BPM T wave inversion no longer evident in Anterior leads QT has shortened Confirmed by Danny Jones ([id number]) on 05/07/2023 8:30:06 AM Referred By: REFERRED SELF Confirmed By:Danny Jones
[2023-05-07] MEDS: INSULIN ASPART PER UNIT CHARGE SC SCH ×4 (09:41→21:24)
--- NOTE | 2023-05-07 10:23 | Hospitalist Progress Note ---
Date of Service May 07, 2023 Assessment & Plan (1) Diabetic infection of left foot: Plan: Malodorous left foot infection; sent in while patient was at dialysis on 05/[address] Dias on 03/15 with partial foot amputation Wound culture pending Left foot x-ray revealed no evidence of osteomyelitis MRI left ankle ordered concerning for osteomyelitis Patient has been taking vancomycin on dialysis days for the past 5 weeks to cover for osteomyelitis Vancomycin + cefepime Appreciate podiatry management - considering below knee amputation at this time, surgery will need to be coordinated with her dialysis (2) ESRD (end stage renal disease) on dialysis: Plan: Consult nephrology for ongoing dialysis management Restart on her usual anti-hypertensives (3) DM II (diabetes mellitus, type II), controlled: Plan: HbA1C not accurate in setting of ESRD on dialysis Patient is not currently on any diabetic medications at home SSI while inpatient; target BSG range 110-140, CF 50, carb ratio 20 (4) UTI (urinary tract infection): Plan: Possible diagnosis although no symptoms of this UA positive on arrival Clinically, patient denies burning with urination Cefepime (as above) (5) CHF (congestive heart failure): Plan: Fluid management with dialysis (6) HTN (hypertension): Plan: BP elevated at 194/76 at time of admission Continue her usual anti-hypertensives Plan Disposition: Admit to [facility] telemetry DNR/DNI T2DM, dialysis renal diet VTE PPx: Heparin 5000u SQ twice daily Admission and Anticipated Discharge Date Admission Date: May 06, 2023 Subjective Tearful about discussing amputation. No fever or chills. No chest pain, shortness of breath or dizziness. Reports good appetite. Last dialysis on Tuesday. Review of Systems Review of Systems: All systems reviewed & are unremarkable except as noted in HPI & below Physical Exam Constitutional: WD/WN, vitals as above Respiratory: normal respiratory effort, lungs clear to auscultation Cardiovascular: RRR, no murmur, no edema Gastrointestinal (Abdomen): normal bowel sounds, soft, nontender, no hepatosplenomegaly Skin: Malodorous left foot but dressing not removed. No cellulitis beyond dressing. Results & Data Results & Data Vital Signs (Past 12 Hours) Vital Signs Temp Pulse Pulse Resp BP Pulse Ox O2 Del Method 05/07/23 07:38 37.0 C 75 18 159/67 H 92 Room Air 05/07/23 07:38 74 05/07/23 04:00 37.4 C 69 18 164/69 H 95 Room Air 05/06/23 23:41 36.7 C 78 18 172/71 H 92 Room Air PG Care Time/CCT Total # of Minutes Spent Total Time Spent with Patient: Total time spent is greater than 50% in coordination of care (as documented) at patient's floor/unit and/or counseling patient: Coding Level of Care Code 41346 SUB INP/OBS CARE 2/35MIN Diagnoses Diabetic infection of left foot E11.628; L08.9 ESRD (end stage renal disease) on dialysis N18.6; Z99.2 DM II (diabetes mellitus, type II), controlled E11.9 UTI (urinary tract infection) N39.0 CHF (congestive heart failure) I50.9 HTN (hypertension) I10
[2023-05-07] MEDS: CLOPIDOGREL BISULFATE 75 MG TAB PO SCH (10:53)
[2023-05-07] MEDS: HEPARIN SOD 5,000 UNIT/0.5 ML VIAL SQ SCH ×2 (10:53→21:24)
[2023-05-07] MEDS: cloNIDine HCL 0.1 MG TAB PO SCH (10:53)
[2023-05-07] MEDS: FUROSEMIDE 40 MG TAB PO SCH (10:53)
[2023-05-07] MEDS: amLODIPine BESYLATE 5 MG TAB PO SCH (10:53)
[2023-05-07] MEDS: ASPIRIN 81 MG CHEW PO SCH (10:53)
[2023-05-07] MEDS: allopurinoL 100 MG TAB PO SCH (10:53)
[2023-05-07] MEDS: lisinopril 40 MG TAB PO SCH (10:53)
[2023-05-07] MEDS: EZETIMIBE 10 MG TAB PO SCH (10:53)
[2023-05-07] MEDS: SEVELAMER HCL 800 MG TABLET PO SCH ×3 (10:53→17:30)
[2023-05-07] MEDS: METOPROLOL TARTRATE 50 MG TAB PO SCH ×2 (10:54→21:24)
[2023-05-07] MEDS: SENNA 8.6 MG TAB PO SCH ×2 (10:54→21:24)
[2023-05-07] MEDS: PANTOprazole 40 MG TAB PO SCH (10:54)
--- NOTE | 2023-05-07 11:19 | Nephrology Consultation ---
Date of Consultation May 07, 2023 Assessment & Plan (1) ESRD (end stage renal disease) on dialysis: * Mrs. Hudson was last dialyzed 05/06/23. Currently she is euvolemic. Electrolyte balance is acceptable. No acute indication for HD today * Outpatient HD Rx: [facility] - MWF, 3 hr, F-180NR, Qb 400/Qd 500, 2K 2Ca, EDW 57 kg * Protect RUE AVF * Continue phosphate binders while eating * Renal diet * Monitor PRP (2) Osteomyelitis: * On empiric IV Cefepime. Recommend consultation w/ pharmacy for dosing while on 3x/week HD * Await surgical consultation re: possible L BKA (3) HTN (hypertension): * In part related to LLE pain * Continue Metoprolol, Amlodipine, Lisinopril, Clonidine (4) Anemia: * Hgb 8.7 * Monitor H&H History of Present Illness Reason for Consultation: ESKD-D Attending Physician: Albaro Franks MD History of Present Illness Mrs. Hudson is a 62 year old female who is seen at the request of [facility] hospitalist service to provide inpatient HD and assist with medical management. Information for the HPI is obtained from direct patient interview and review of the EMR. HPI is summarized as follows: Ms. Hudson has ESKD due to DKD. She dialyzes at [facility] (MWF, 3 hr, F-180NR, Qb 400/Qd 500, 2K 2Ca, EDW 57 kg). Her primary Tax Compliance Officer is Dr. Mckeon. Mrs. Hudson has PVD. She required L TMA 01/02. The wound was slow to heal and she later underwent angioplasty w/ stenting of the L proximal/mid SFA 01/02. Unfortunately, Mrs. Hudson was readmitted 04/04 due to L foot pain. She was diagnosed w/ osteomyelitis and required further surgical debridement. Post-op course was complicated by heavy bleeding and need for blood transfusion. She also developed a new ulcerative lesion on her heel. Mrs. Hudson was discharged to home 04/07/23. She was dialyzed yesterday without complication. Following dialysis her dressing was changed by home health RN. She was referred back to [facility] due to significant malodorous drainage from her L foot and concern for worsening infection. Mrs. Hudson was evaluated by Podiatry 05/06/23, limb salvage may not be possible. They are recommending L BKA PMH: ESKD on IHD, AODM, ASCVD S/P PCI and WILLIAM placement x 2, hyperlipidemia, hypothyroidism, PVD w/ L foot osteomyelitis Allergies Allergy/AdvReac Type Severity Reaction Status Date / Time morphine Allergy Severe Hallucinati Verified 05/06/23 16:01 ng codeine Allergy Intermediate Redness of Verified 05/06/23 16:01 Skin prednisone Allergy Intermediate Itching Verified 05/06/23 16:01 Home Medications Medication Instructions Recorded Confirmed Type albuterol sulfate 90 mcg/actuation 1 puff inhalation QID PRN bad cough 11/12/22 05/06/23 History aerosol inhaler allopurinol 100 mg tablet 100 mg PO DAILY 11/12/22 05/06/23 History ascorbic acid (vitamin C) 500 mg 500 mg PO DAILY 11/12/22 05/06/23 History capsule aspirin 81 mg chewable tablet 81 mg PO DAILY 11/12/22 05/06/23 History atorvastatin 40 mg tablet (Lipitor) 40 mg PO HS 11/12/22 05/06/23 History cholecalciferol (vitamin D3) 50 50 mcg PO DAILY 11/12/22 05/06/23 History mcg (2,000 unit) tablet clonidine HCl 0.1 mg tablet 0.1 mg PO DAILY 11/12/22 05/06/23 History clopidogrel 75 mg tablet 75 mg PO DAILY 11/12/22 05/06/23 History denosumab 60 mg/mL subcutaneous 60 mg subcut Q6M 11/12/22 05/06/23 History syringe (Prolia) docusate sodium 100 mg capsule 100 mg PO DAILY PRN Constipation 11/12/22 05/06/23 History (Colace) esomeprazole magnesium 40 mg 40 mg PO DAILY 11/12/22 05/06/23 History capsule,delayed release (Nexium) ezetimibe 10 mg tablet 10 mg PO DAILY 11/12/22 05/06/23 History furosemide 40 mg tablet (Lasix) 40 mg PO DAILY 11/12/22 05/06/23 History isosorbide mononitrate 30 mg 30 mg PO HS 11/12/22 05/06/23 History tablet,extended release 24 hr levothyroxine 125 mcg tablet 125 mcg PO QAM 11/12/22 05/06/23 History lisinopril 40 mg tablet (Zestril) 40 mg PO DAILY 11/12/22 05/06/23 History loratadine 10 mg tablet 10 mg PO DAILY PRN allergies 11/12/22 05/06/23 History melatonin 10 mg capsule 10 mg PO HS 11/12/22 05/06/23 History metoprolol tartrate 50 mg tablet See Rx Instructions .Route .COMPLEX 11/12/22 05/06/23 History nitroglycerin 0.4 mg sublingual 0.4 mg sublingual DIRECTED PRN 11/12/22 05/06/23 History tablet Chest Pain sevelamer carbonate 800 mg tablet 800 mg PO TIDM 11/12/22 05/06/23 History vit B,C-folic ac 800 mcg-zinc 12.5 1 tab PO DAILY 11/12/22 05/06/23 History mg-selen-D3 2,000 unit-vit E tablet (RenaPlex-D) acetaminophen 325 mg tablet 650 mg (2 x 325 mg) PO Q4H PRN 01/05/23 05/06/23 Rx fever or pain #0 tabs sennosides 8.6 mg tablet (Senokot) 17.2 mg (2 x 8.6 mg) PO BID #0 tabs 01/05/23 05/06/23 Rx calcium carbonate 500 mg-vitamin 1 tab PO BID 03/14/23 05/06/23 History D3 10 mcg (400 unit) tablet (Oyster Shell Calcium-Vitamin D3) amlodipine 10 mg tablet 10 mg PO DAILY #30 tabs 04/07/23 05/06/23 Rx calcitriol 0.25 mcg capsule 0.25 mcg PO QAM #30 caps 04/07/23 05/06/23 Rx oxycodone 5 mg tablet 5 mg PO Q4H PRN Pain #15 tabs 04/07/23 05/06/23 Rx Patient History Medical History Anemia due to chronic kidney disease Depression Open wound of left foot PAD (peripheral artery disease) Encounter for pre-operative examination ESRD (end stage renal disease) on dialysis HD --. Follows with Dr. Mike Espinal CHF (congestive heart failure) Osteomyelitis of left foot Hypothyroidism Anemia Tobacco abuse Hyperlipidemia HTN (hypertension) CAD (coronary artery disease) DM II (diabetes mellitus, type II), controlled Surgical History S/P drug eluting coronary stent placement Social History Smoking Status: Current every day smoker Tobacco Type: Cigarettes Cigarettes Per Day: 5; Second Hand Exposure: No; Do You Dip or Chew Tobacco: No; Hx Alcohol Use: No Hx Substance Use: No Preferred Language: Finnish Communication Ability: Effective Corporate Treasurer Required: No Beliefs That Will Affect Care: None Current Living Situation: Spouse and Family Other Information That Helps Us Care for You: No Feels Safe at Home: Yes Safety Concerns: Feels Safe At This Time Assistive Devices: Denture - Upper, Denture - Lower, Glasses and Wheelchair Review of Systems Constitutional: no fever Eyes: no problem reported Ear, Nose, Mouth, Throat: no problem reported Respiratory: no cough and no dyspnea Cardiovascular: no chest pain Gastrointestinal: + nausea; no vomiting and no diarrhea/lo ose stools Physical Exam Constitutional: + ill appearing Eyes: PERRL, conjunctivae normal, anicteric sclerae ENMT: external ear and nose normal, oropharynx normal Neck: trachea midline, no thyromegaly Respiratory: normal respiratory effort, lungs clear to auscultation Cardiovascular: RRR, no murmur, no edema Extremities: + AV fistula (R BC AVF +bruit) Gastrointestinal (Abdomen): normal bowel sounds, soft, nontender, no hepatosplenomegaly Results & Data Vital Signs (Past 12 Hours) Vital Signs Temp Pulse Pulse Resp BP Pulse Ox O2 Del Method 05/07/23 07:38 37.0 C 75 18 159/67 H 92 Room Air 05/07/23 07:38 74 05/07/23 04:00 37.4 C 69 18 164/69 H 95 Room Air 05/06/23 23:41 36.7 C 78 18 172/71 H 92 Room Air Laboratory Results Laboratory Results WBC 7.43 K/ul (4.8-10.8) 05/07/23 05:52 RBC 2.79 M/uL (4.20-5.40) L 05/07/23 05:52 Hgb 8.7 g/dl (12.0-16.0) L 05/07/23 05:52 Hct 27.7 % (37.0-47.0) L 05/07/23 05:52 MCV 99.3 fL (80.0-100.0) 05/07/23 05:52 MCH 31.2 pg (25.0-34.0) 05/07/23 05:52 MCHC 31.4 g/dL (32.0-36.0) L 05/07/23 05:52 RDW Std Deviation 56.8 fL (36.4-46.3) H 05/07/23 05:52 RDW Coeff of Evette 15.7 % (11.5-14.5) H 05/07/23 05:52 Plt Count 191 K/uL (130-400) 05/07/23 05:52 MPV 9.8 fL (9.4-12.4) 05/07/23 05:52 Immature Gran % (Auto) 0.3 % 05/07/23 05:52 Neut % (Auto) 75.2 % 05/07/23 05:52 Lymph % (Auto) 16.0 % 05/07/23 05:52 [place] % (Auto) 7.0 % 05/07/23 05:52 Eos % (Auto) 1.2 % 05/07/23 05:52 Baso % (Auto) 0.3 % 05/07/23 05:52 Neut # (Auto) 5.59 K/uL (1.40-6.50) 05/07/23 05:52 Lymph # (Auto) 1.19 K/uL (1.20-3.40) L 05/07/23 05:52 [place] # (Auto) 0.52 K/uL (0.11-0.59) 05/07/23 05:52 Eos # (Auto) 0.09 K/uL (0.00-0.50) 05/07/23 05:52 Baso # (Auto) 0.02 K/uL (0.00-0.20) 05/07/23 05:52 Immature Gran # (Auto) 0.02 K/uL (0.01-0.20) 05/07/23 05:52 ESR 54 mm/hr (0-30) H 05/07/23 05:52 PT 11.5 Seconds (9.0-12.0) 05/06/23 14:33 INR 1.1 (0.9-1.1) 05/06/23 14:33 Sodium 134 mmol/L (136-145) L 05/07/23 05:52 Potassium 3.9 mmol/L (3.5-5.1) 05/07/23 05:52 Chloride 97 mmol/L (98-107) L 05/07/23 05:52 Carbon Dioxide 35 mmol/L (21-32) H 05/07/23 05:52 Anion Gap 2 (3-11) L 05/07/23 05:52 BUN 16 mg/dl (6-23) 05/07/23 05:52 Creatinine 2.83 mg/dl (0.6-1.2) H D 05/07/23 05:52 Est Cr Clr Drug Dosing 16.5 ml/min 05/07/23 05:52 Est GFR ( Amer) 20.0 ml/min 05/07/23 05:52 Est GFR (Non-Af Amer) 17.3 ml/min 05/07/23 05:52 BUN/Creatinine Ratio 5.7 (10-20) L 05/07/23 05:52 Glucose 79 mg/dl (70-99(Fasting)) 05/07/23 05:52 POC Glucose 112 mg/dl (70-99) H 05/07/23 07:41 Estimat Average Glucose 88 mg/dl 05/07/23 05:52 Hemoglobin A1c 4.7 % (4.5-5.6) 05/07/23 05:52 Lactate 1.2 mmol/L (0.4-2.0) 05/06/23 14:33 Calcium 8.1 mg/dl (8.6-10.3) L 05/07/23 05:52 Magnesium 1.8 mg/dl (1.7-2.4) 05/06/23 19:32 Total Bilirubin 0.4 mg/dl (0.2-1.0) 05/06/23 14:33 AST 20 U/L (13-39) 05/06/23 14:33 ALT 15 U/L (7-52) 05/06/23 14:33 Alkaline Phosphatase 102 U/L (34-104) 05/06/23 14:33 Troponin I High Sens 20.0 pg/ml (0-14) H 05/06/23 19:32 C-Reactive Protein 6.52 mg/dl (0-0.5) H 05/07/23 05:52 Total Protein 5.9 gm/dl (6.0-8.3) L 05/06/23 14:33 Albumin 2.6 gm/dl (3.4-5.0) L 05/06/23 14:33 Globulin 3.3 gm/dl (2.5-4.0) 05/06/23 14:33 Albumin/Globulin Ratio 0.8 (0.9-2) L 05/06/23 14:33 Procalcitonin 0.19 ng/ml (0-0.5) 05/06/23 14:33 Urine Color Dark Yellow 05/06/23 16:20 Urine Appearance Turbid (Clear) A 05/06/23 16:20 Urine pH >= 9.0 (4.5-7.5) H 05/06/23 16:20 Ur Specific [place] 1.015 (1.000-1.030) 05/06/23 16:20 Urine Protein 3+ (Negative) H 05/06/23 16:20 Urine Glucose (UA) Negative (Negative) 05/06/23 16:20 Urine Ketones Negative (Negative) 05/06/23 16:20 Urine Blood Negative (Negative) 05/06/23 16:20 Urine Nitrite Negative (Negative) 05/06/23 16:20 Urine Bilirubin Negative (Negative) 05/06/23 16:20 Urine Urobilinogen Negative (Negative) 05/06/23 16:20 Ur Leukocyte Esterase 3+ (Negative) H 05/06/23 16:20 Urine WBC (Auto) >30 /hpf (0-5) H 05/06/23 16:20 Urine RBC (Auto) 0-4 /hpf (0-4) 05/06/23 16:20 U Hyaline Cast (Auto) 1-5 /lpf (0-5) 05/06/23 16:20 U Epithel Cells (Auto) >30 /lpf (0-5) H 05/06/23 16:20 Urine Bacteria (Auto) 1+ (Negative) H 05/06/23 16:20 Urine Yeast Not Reportable 05/06/23 16:20 Nasal Screen MRSA (PCR) Negative (Negative) 05/07/23 01:00 Random Vancomycin 15.1 mcg/ml (10-20) 05/06/23 22:52 SARS-CoV-2, RNA, NAAT NEGATIVE (NEGATIVE) 05/06/23 14:33 Impressions Foot X-Ray 05/06/23 13:54 XR foot LT min 3V routine CLINICAL HISTORY: s/p amputation, ?infection TECHNIQUE: 3 views of the left foot were obtained. Comparison: Comparison is made to left foot radiographs 03/14/2023 FINDINGS: No evidence of bony erosion is seen. 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 Vascular calcifications are noted with soft tissue swelling. IMPRESSION: No radiographic evidence of osteomyelitis. If clinical concern remains, MRI is a more sensitive modality. Midfoot resection is seen and there is soft tissue swelling. ACT 112: Negative or not required by law. Electronically signed by: Richard Chirinos M.D. 05/06/2023 2:45 PM Chest X-Ray 05/06/23 14:24 XR chest 1V portable CLINICAL HISTORY: falls TECHNIQUE: Single frontal radiograph of the chest was obtained. Comparison: Comparison is made to chest radiograph 04/11/2023 FINDINGS: No lines and tubes are seen. Cardiomegaly is noted. The aortic arch is calcified. There is prominence and cephalization of the vasculature with Stiven B lines seen. No evidence of pleural effusion or pneumothorax. IMPRESSION: Cardiomegaly and moderate pulmonary edema. ACT 112: Negative or not required by law. Electronically signed by: Richard Chirinos M.D. 05/06/2023 2:36 PM Ankle MRI 05/06/23 20:10 Exam(s): MRI LEFT ANKLE Without Contrast EXAM: MR Left Lower Extremity Without Intravenous Contrast, Ankle CLINICAL HISTORY: Osteomyelitis. TECHNIQUE: Multiplanar magnetic resonance images of the left ankle without intravenous contrast. COMPARISON: MRI ankle 03/14/2023 FINDINGS: Limitations: Significantly limited examination as the patient did not tolerate the entirety of the exam and there is significant patient motion. Bones/joints: Subtle hypointensity of the calcaneal bone on T1 imaging could relate to underlying edema and as such osteomyelitis. There are surgical changes of a transmetatarsal amputation. No acute fracture. IMPRESSION: 1. Significantly limited examination as the patient did not tolerate the entirety of the exam and there is significant patient motion. 2. Subtle hypointensity of the calcaneal bone on T1 imaging could relate to underlying edema and as such osteomyelitis. Consider repeat MRI with T2-weighted sequences. Electronically signed by: Pilar Coleman MD 05/07/23 00:15 AM PG Care Time/CCT Total # of Minutes Spent Total Time Spent with Patient: Total time spent is greater than 50% in coordination of care (as documented) at patient's floor/unit and/or counseling patient: Coding Level of Care Code 08837 IN/OBS CONSULT LVL 5,80M Diagnoses ESRD (end stage renal disease) on dialysis N18.6; Z99.2 Osteomyelitis M86.9 HTN (hypertension) I10 Anemia D64.9
--- NOTE | 2023-05-07 13:37 | Pharmacy Report ---
Pharmacy PK ABX Note - Date of Service May 07, 2023 - Assessment and Plan Assessment 62 year old F receiving VANCOMCYIN/CEFEPIME for treatment of foot infection. Patient has hx of diabetes. Pertinent microbiologic data includes: left foot culture currently growing a gram negative bacilli. E. faecium from most recent foot culture, patient was on vancomycin 500 mg post-dialysis MWF. More extensive culture history can be reviewed in EMR. Typical dialysis schedule MWF. Disc ussing possible BKA. Will dose vancomycin by levels. Day # []/[] of antimicrobial therapy. Plan Vancomycin * Random level today 14.5 mcg/mL * Redose with 500 mg x 1 today * Random level with AM labs. Pharmacy will continue to follow and will adjust dose/frequency as necessary. Thank you. Pharmacy has transitioned to AUC monitoring for vancomycin. AUC/ELIUD is the preferred PK/PD target and is associated with decreased risk of nephrotoxicity compared to traditional trough targets.
[2023-05-07] MEDS ORDERED: VANCOMYCIN HCL 500 MG in NSS 100mL IV ONE (14:00)
[2023-05-07] MEDS: HYDROmorphone INJ 0.5 MG/0.5 ML SYR IV PRN ×2 (14:35→19:21)
[2023-05-07] MEDS: CEFEPIME 1,000 MG in SYRINGE 0 ML IV SCH (16:30)
[2023-05-07] MEDS: ISOSORBIDE MONO EXTENDED REL 30 MG TABCR PO SCH (21:23)
[2023-05-07] MEDS: ATORVASTATIN 40 MG TAB PO SCH (21:23)
[2023-05-07] MEDS: MELATONIN 3 MG TAB PO SCH (21:23)
[2023-05-08] MEDS: HYDROmorphone INJ 0.5 MG/0.5 ML SYR IV PRN ×4 (00:28→17:15)
[2023-05-08 04:58] LABS: Basophils # (auto) 0.01 K/uL (0.00-0.20); Basophils % (auto) 0.1 %; Eosinophils # (auto) 0.09 K/uL (0.00-0.50); Hematocrit (blood only) 22.8 % (37.0-47.0); Hemoglobin 7.4 g/dl (12.0-16.0); Immature Granulocytes # (auto) 0.03 K/uL (0.01-0.20); Immature Granulocytes % (auto) 0.3 %; Lymphocytes # (auto) 1.49 K/uL (1.20-3.40); Lymphocytes % (auto) 15.9 %; Mean Corpuscular Hemoglobin 31.5 pg (25.0-34.0); Mean Corpuscular Hgb Conc 32.5 g/dL (32.0-36.0); Mean Platelet Volume 9.9 fL (9.4-12.4); Monocytes % (auto) 5.3 %; Neutrophils # (auto) 7.28 K/uL (1.40-6.50); Neutrophils % (auto) 77.4 %; Platelet Count 193 K/uL (130-400); RDW Coefficient of Variation 15.5 % (11.5-14.5); RDW Standard Deviation 53.2 fL (36.4-46.3); Red Blood Count 2.35 M/uL (4.20-5.40)
[2023-05-08 05:10] LABS: BUN Creatinine Ratio 7.9 (10-20); C Reactive Protein 11.87 mg/dl (0-0.5); Calcium 8.3 mg/dl (8.6-10.3); Creatinine Clr Calc Pharmacy 12.8 ml/min; Est GFR (African American) 14.7 ml/min; Est GFR (Non-African American) 12.7 ml/min; Potassium 4.3 mmol/L (3.5-5.1)
[2023-05-08] MEDS: LEVOTHYROXINE SODIUM 125 MCG TABLET PO SCH (05:36)
[2023-05-08 05:38] LABS: RBC Morphology Unremarkable
[2023-05-08] MEDS: allopurinoL 100 MG TAB PO SCH (08:24)
[2023-05-08] MEDS: SENNA 8.6 MG TAB PO SCH ×2 (08:24→20:14)
[2023-05-08] MEDS: cloNIDine HCL 0.1 MG TAB PO SCH (08:24)
[2023-05-08] MEDS: lisinopril 40 MG TAB PO SCH (08:24)
[2023-05-08] MEDS: EZETIMIBE 10 MG TAB PO SCH (08:25)
[2023-05-08] MEDS: PANTOprazole 40 MG TAB PO SCH (08:25)
[2023-05-08] MEDS: CLOPIDOGREL BISULFATE 75 MG TAB PO SCH (08:25)
[2023-05-08] MEDS: amLODIPine BESYLATE 5 MG TAB PO SCH (08:25)
[2023-05-08] MEDS: FUROSEMIDE 40 MG TAB PO SCH (08:25)
[2023-05-08] MEDS: METOPROLOL TARTRATE 50 MG TAB PO SCH ×2 (08:26→20:13)
[2023-05-08] MEDS: SEVELAMER HCL 800 MG TABLET PO SCH ×3 (08:26→16:45)
[2023-05-08] MEDS: ASPIRIN 81 MG CHEW PO SCH (08:26)
--- NOTE | 2023-05-08 09:07 | Nephrology Progress Note ---
Date of Service May 08, 2023 Assessment & Plan (1) ESRD (end stage renal disease) on dialysis: Plan: * Patient remains euvolemic. Electrolyte balance is acceptable. No acute indication for HD today. Will plan next HD for am * Outpatient HD Rx: [facility], 3 hr, F-180NR, Qb 400/Qd 500, 2K 2Ca, EDW 57 kg * Protect RUE AVF * Continue phosphate binders while eating * Renal diet * Monitor PRP (2) Osteomyelitis: Plan: * On empiric IV Cefepime * Patient reports that she will undergo L BKA this coming week (3) HTN (hypertension): Plan: * In part related to LLE pain * Continue Metoprolol, Amlodipine, Lisinopril, Clonidine (4) Anemia: Plan: * Hgb 8.7-->7.4. Primary service has ordered blood transfusion * Monitor H&H Admission and Anticipated Discharge Date Admission Date: May 06, 2023 Subjective Mrs. Hudson was evaluated in her hospital room this morning. She denies fever, angina or dyspnea. She reports that she is accepting of LLE BKA if needed Review of Systems Constitutional: no fever Eyes: no problem reported Ear, Nose, Mouth, Throat: no problem reported Respiratory: no cough and no dyspnea Cardiovascular: no chest pain Gastrointestinal: + nausea; no vomiting and no diarrhea/lo ose stools Physical Exam Constitutional: + ill appearing Eyes: PERRL, conjunctivae normal, anicteric sclerae ENMT: external ear and nose normal, oropharynx normal Neck: trachea midline, no thyromegaly Respiratory: normal respiratory effort, lungs clear to auscultation Cardiovascular: RRR, no murmur, no edema Extremities: + AV fistula (R BC AVF +bruit) Gastrointestinal (Abdomen): normal bowel sounds, soft, nontender, no hepatosplenomegaly Results & Data Vital Signs (Past 12 Hours) Vital Signs Temp Pulse Pulse Resp BP Pulse Ox O2 Del Method 05/08/23 07:28 36.9 C 73 18 153/77 H 95 Room Air 05/08/23 03:44 36.9 C 70 18 130/71 91 Room Air 05/07/23 23:09 37.5 C 71 18 127/48 L 91 Room Air 05/07/23 21:56 74 Laboratory Results Laboratory Results - last 24 hr 05/07/23 05/07/23 05/07/23 11:48 12:33 16:53 WBC RBC Hgb Hct MCV MCH MCHC RDW Std Deviation RDW Coeff of Evette Plt Count MPV Immature Gran % (Auto) Neut % (Auto) Lymph % (Auto) [place] % (Auto) Eos % (Auto) Baso % (Auto) Neut # (Auto) Lymph # (Auto) [place] # (Auto) Eos # (Auto) Baso # (Auto) Immature Gran # (Auto) RBC Morphology ESR Sodium Potassium Chloride Carbon Dioxide Anion Gap BUN Creatinine Est Cr Clr Drug Dosing Est GFR ( Amer) Est GFR (Non-Af Amer) BUN/Creatinine Ratio Glucose POC Glucose 86 163 H Calcium C-Reactive Protein Random Vancomycin 14.5 Blood Type Antibody Screen 05/07/23 05/08/23 05/08/23 20:56 04:35 05:39 WBC 9.40 RBC 2.35 L Hgb 7.4 L Hct 22.8 L MCV 97.0 MCH 31.5 MCHC 32.5 RDW Std Deviation 53.2 H RDW Coeff of Evette 15.5 H Plt Count 193 MPV 9.9 Immature Gran % (Auto) 0.3 Neut % (Auto) 77.4 Lymph % (Auto) 15.9 [place] % (Auto) 5.3 Eos % (Auto) 1.0 Baso % (Auto) 0.1 Neut # (Auto) 7.28 H Lymph # (Auto) 1.49 [place] # (Auto) 0.50 Eos # (Auto) 0.09 Baso # (Auto) 0.01 Immature Gran # (Auto) 0.03 RBC Morphology Unremarkable ESR 44 H Sodium 128 L Potassium 4.3 Chloride 92 L Carbon Dioxide 31 Anion Gap 5 BUN 29 H Creatinine 3.65 H D Est Cr Clr Drug Dosing 12.8 Est GFR ( Amer) 14.7 Est GFR (Non-Af Amer) 12.7 BUN/Creatinine Ratio 7.9 L Glucose 107 H POC Glucose 103 H Calcium 8.3 L C-Reactive Protein 11.87 H Random Vancomycin 17.5 Blood Type A Positive Antibody Screen NEGATIVE 05/08/23 08:21 WBC RBC Hgb Hct MCV MCH MCHC RDW Std Deviation RDW Coeff of Evette Plt Count MPV Immature Gran % (Auto) Neut % (Auto) Lymph % (Auto) [place] % (Auto) Eos % (Auto) Baso % (Auto) Neut # (Auto) Lymph # (Auto) [place] # (Auto) Eos # (Auto) Baso # (Auto) Immature Gran # (Auto) RBC Morphology ESR Sodium Potassium Chloride Carbon Dioxide Anion Gap BUN Creatinine Est Cr Clr Drug Dosing Est GFR ( Amer) Est GFR (Non-Af Amer) BUN/Creatinine Ratio Glucose POC Glucose 102 H Calcium C-Reactive Protein Random Vancomycin Blood Type Antibody Screen PG Care Time/CCT Total # of Minutes Spent Total Time Spent with Patient: Total time spent is greater than 50% in coordination of care (as documented) at patient's floor/unit and/or counseling patient: Coding Level of Care Code 79980 SUB INP/OBS CARE 3/50MIN Diagnoses ESRD (end stage renal disease) on dialysis N18.6; Z99.2 Osteomyelitis M86.9 HTN (hypertension) I10 Anemia D64.9
[2023-05-08] MEDS: INSULIN ASPART PER UNIT CHARGE SC SCH (09:08)
--- NOTE | 2023-05-08 11:28 | Pharmacy Report ---
Pharmacy PK ABX Note - Date of Service May 08, 2023 - Assessment and Plan Assessment 05/08: Gram negative bacilli growing on left foot culture (prelim). Random level this AM 17.5 mcg/mL without plans for dialysis today. Will not redose today and will obtain random level in AM in anticipation of MWF dialysis schedule. 05/07 62 year old F receiving VANCOMCYIN/CEFEPIME for treatment of foot infection. Patient has hx of diabetes. Pertinent microbiologic data includes: left foot culture currently growing a gram negative bacilli. E. faecium from most recent foot culture, patient was on vancomycin 500 mg post-dialysis MWF. More extensive culture history can be reviewed in EMR. Typical dialysis schedule MWF. Discussing possible BKA. Will dose vancomycin by levels. Plan Vancomycin * Random level today 17.5 mcg/mL * Will not redose today. * Random level with AM labs. Pharmacy will continue to follow and will adjust dose/frequency as necessary. Thank you. Pharmacy has transitioned to AUC monitoring for vancomycin. AUC/ELIUD is the preferred PK/PD target and is associated with decreased risk of nephrotoxicity compared to traditional trough targets.
[2023-05-08 13:34] LABS: Hematocrit (blood only) 25.8 % (37.0-47.0); Hemoglobin 8.4 g/dl (12.0-16.0); Reticulocytes # 0.05 10^6/uL (0.02-0.10)
[2023-05-08 14:12] LABS: Folate (Folic Acid),Ser orPlas > 22.30 ng/ml (>5.38)
[2023-05-08 14:13] LABS: Vitamin B12 474 pg/ml (180-914)
[2023-05-08] MEDS: CEFEPIME 1,000 MG in SYRINGE 0 ML IV SCH (16:44)
--- NOTE | 2023-05-08 18:39 | Hospitalist Progress Note ---
Date of Service May 08, 2023 Assessment & Plan (1) Diabetic infection of left foot: Plan: Malodorous left foot infection; sent in while patient was at dialysis on 05/[address] Dias on 03/15 with partial foot amputation Wound culture GNB x2 MRI left ankle ordered concerning for osteomyelitis Patient has been taking vancomycin on dialysis days for the past 5 weeks to cover for osteomyelitis Vancomycin + cefepime Discussed with Dr Dias and requested orthopedics consult for below knee amputation - discussed with Dr Miramontes and consult placed for Dr Richardson. (2) Peripheral arterial disease: Plan: s/p endovascular intervention 04/04. Per Dr Campbell' note at that time was supposed to follow up with non-invasive testing as outpatient in 1-2 weeks although I don't see this was ever performed therefore will consult Dr Campbell to see if further testing warranted at this time. (3) Anemia: Plan: Decreased Hgb down to 7.4 this morning but back up to 8.4 without intervention this afternoon B12, folate, iron studies, retic Suspect secondary to ESRD and will defer management for nephrology regarding EPO injections Aim Hgb > 7 unless this needs to be higher for her orthopedic operation (4) ESRD (end stage renal disease) on dialysis: Plan: Consult nephrology for ongoing dialysis management Restart on her usual anti-hypertensives (5) DM II (diabetes mellitus, type II), controlled: Plan: HbA1C not accurate in setting of ESRD on dialysis Patient is not currently on any diabetic medications at home With current glucose measurements this appears to be a historical rather than current diagnosis therefore BSG ACHS and insulin discontinued (6) UTI (urinary tract infection): Plan: Ruled out Urine culture with mixed growth and no specific symptoms of this (7) CHF (congestive heart failure): Plan: Fluid management with dialysis (8) HTN (hypertension): Plan: BP elevated at 194/76 at time of admission Normalized on her usual anti-hypertensives Plan VTE Prophylaxis - heparin 5000 units SQ BID (on hold pending stability in Hgb) Diet - dialysis renal Disposition - continued admission pending BKA on med/tele Admission and Anticipated Discharge Date Admission Date: May 06, 2023 Subjective No acute questions or concerns from the patient. No shortness of breath, chest pain or lightheadedness. No fever or chills. No melena or hematochezia. Review of Systems Review of Systems: All systems reviewed & are unremarkable except as noted in HPI & below Physical Exam 2 Constitutional: WD/WN, vitals as above ENMT: Mouth: oral mucous membranes not dry Respiratory: normal respiratory effort, lungs clear to auscultation Cardiovascular: RRR, no murmur, no edema Gastrointestinal (Abdomen): normal bowel sounds, soft, nontender, no hepatosplenomegaly Skin: Necrotic tissue on left stump with surrounding cellulitis extending about 2 inches Psychiatric: A+Ox3, euthymic affect Results & Data Results & Data Vital Signs (Past 12 Hours) Vital Signs Temp Pulse Pulse Resp BP Pulse Ox O2 Del Method 05/08/23 14:58 36.8 C 72 18 166/72 H 91 Room Air 05/08/23 14:00 80 05/08/23 11:40 37.1 C 63 18 153/69 H 92 Room Air 05/08/23 07:28 36.9 C 73 18 153/77 H 95 Room Air 05/08/23 07:00 68 Laboratory Results Abnormal lab results 05/07/23 05/08/23 05/08/23 Range/Units 20:56 04:35 08:21 RBC 2.35 L (4.20-5.40) M/uL Hgb 7.4 L (12.0-16.0) g/dl Hct 22.8 L (37.0-47.0) % RDW Std Deviation 53.2 H (36.4-46.3) fL RDW Coeff of Evette 15.5 H (11.5-14.5) % Neut # (Auto) 7.28 H (1.40-6.50) K/uL ESR 44 H (0-30) mm/hr Sodium 128 L (136-145) mmol/L Chloride 92 L (98-107) mmol/L BUN 29 H (6-23) mg/dl Creatinine 3.65 H D (0.6-1.2) mg/dl BUN/Creatinine Ratio 7.9 L (10-20) Glucose 107 H (70-99(Fasting)) mg/dl POC Glucose 103 H 102 H (70-99) mg/dl Calcium 8.3 L (8.6-10.3) mg/dl Iron (35-150) mcg/dl TIBC (250-450) mcg/dl Unsaturated IBC (155-355) mcg/dl Ferritin (8-388) ng/ml C-Reactive Protein 11.87 H (0-0.5) mg/dl 05/08/23 05/08/23 Range/Units 12:45 12:47 RBC (4.20-5.40) M/uL Hgb 8.4 L (12.0-16.0) g/dl Hct 25.8 L (37.0-47.0) % RDW Std Deviation (36.4-46.3) fL RDW Coeff of Evette (11.5-14.5) % Neut # (Auto) (1.40-6.50) K/uL ESR (0-30) mm/hr Sodium (136-145) mmol/L Chloride (98-107) mmol/L BUN (6-23) mg/dl Creatinine (0.6-1.2) mg/dl BUN/Creatinine Ratio (10-20) Glucose (70-99(Fasting)) mg/dl POC Glucose (70-99) mg/dl Calcium (8.6-10.3) mg/dl Iron 34 L (35-150) mcg/dl TIBC 123 L (250-450) mcg/dl Unsaturated IBC 89 L (155-355) mcg/dl Ferritin 1557.0 H (8-388) ng/ml C-Reactive Protein (0-0.5) mg/dl PG Care Time/CCT Total # of Minutes Spent Total Time Spent with Patient: Total time spent is greater than 50% in coordination of care (as documented) at patient's floor/unit and/or counseling patient: Coding Level of Care Code 17851 SUB INP/OBS CARE 2/35MIN Diagnoses Diabetic infection of left foot E11.628; L08.9 Peripheral arterial disease I73.9 Anemia D64.9 ESRD (end stage renal disease) on dialysis N18.6; Z99.2 DM II (diabetes mellitus, type II), controlled E11.9 UTI (urinary tract infection) N39.0 CHF (congestive heart failure) I50.9 HTN (hypertension) I10
[2023-05-08] MEDS: ATORVASTATIN 40 MG TAB PO SCH (20:13)
[2023-05-08] MEDS: MELATONIN 3 MG TAB PO SCH (20:13)
[2023-05-08] MEDS: ISOSORBIDE MONO EXTENDED REL 30 MG TABCR PO SCH (20:13)
[2023-05-08] MEDS: HYDROmorphone INJ 1 MG/ML SYRINGE IV PRN (22:11)
[2023-05-09] MEDS: LEVOTHYROXINE SODIUM 125 MCG TABLET PO SCH (05:04)
[2023-05-09] MEDS: HYDROmorphone INJ 1 MG/ML SYRINGE IV PRN ×2 (05:04→17:43)
[2023-05-09] MEDS ORDERED: EPOETIN ALFA 10,000 UNITS/ML VIAL IV ONE (07:00)
[2023-05-09] MEDS ORDERED: SODIUM CHLORIDE 0.9% 1,000 ML IV PRN (07:00)
[2023-05-09] MEDS ORDERED: HEPARIN SOD (PORCINE) 1000 UNIT/ML IV ONE (07:00)
[2023-05-09 07:51] LABS: Basophils # (auto) 0.02 K/uL (0.00-0.20); Basophils % (auto) 0.2 %; Eosinophils % (auto) 1.2 %; Hematocrit (blood only) 25.5 % (37.0-47.0); Hemoglobin 8.3 g/dl (12.0-16.0); Immature Granulocytes # (auto) 0.03 K/uL (0.01-0.20); Immature Granulocytes % (auto) 0.3 %; Lymphocytes # (auto) 0.96 K/uL (1.20-3.40); Lymphocytes % (auto) 11.2 %; Mean Corpuscular Hemoglobin 31.8 pg (25.0-34.0); Mean Corpuscular Hgb Conc 32.5 g/dL (32.0-36.0); Mean Corpuscular Volume 97.7 fL (80.0-100.0); Mean Platelet Volume 9.7 fL (9.4-12.4); Monocytes # (auto) 0.53 K/uL (0.11-0.59); Monocytes % (auto) 6.2 %; Neutrophils # (auto) 6.95 K/uL (1.40-6.50); Neutrophils % (auto) 80.9 %; Platelet Count 190 K/uL (130-400); RDW Coefficient of Variation 15.5 % (11.5-14.5); RDW Standard Deviation 54.1 fL (36.4-46.3); Red Blood Count 2.61 M/uL (4.20-5.40); White Blood Count 8.59 K/ul (4.8-10.8)
[2023-05-09 08:09] LABS: BUN Creatinine Ratio 9.4 (10-20); Calcium 8.4 mg/dl (8.6-10.3); Creatinine Clr Calc Pharmacy 10.4 ml/min; Est GFR (African American) 11.5 ml/min; Est GFR (Non-African American) 9.9 ml/min; Potassium 4.5 mmol/L (3.5-5.1)
[2023-05-09] MEDS: SEVELAMER HCL 800 MG TABLET PO SCH ×3 (08:18→16:54)
[2023-05-09] MEDS: CLOPIDOGREL BISULFATE 75 MG TAB PO SCH (08:18)
[2023-05-09] MEDS: METOPROLOL TARTRATE 50 MG TAB PO SCH ×2 (08:19→21:15)
[2023-05-09] MEDS: cloNIDine HCL 0.1 MG TAB PO SCH (08:19)
[2023-05-09] MEDS: EZETIMIBE 10 MG TAB PO SCH (08:19)
[2023-05-09] MEDS: amLODIPine BESYLATE 5 MG TAB PO SCH (08:19)
[2023-05-09] MEDS: PANTOprazole 40 MG TAB PO SCH (08:19)
[2023-05-09] MEDS: allopurinoL 100 MG TAB PO SCH (08:20)
[2023-05-09] MEDS: ASPIRIN 81 MG CHEW PO SCH (08:20)
[2023-05-09] MEDS: SENNA 8.6 MG TAB PO SCH ×2 (08:20→21:14)
[2023-05-09] MEDS: FUROSEMIDE 40 MG TAB PO SCH (08:20)
--- NOTE | 2023-05-09 08:35 | Nephrology Progress Note ---
Date of Service May 09, 2023 Assessment & Plan (1) ESRD (end stage renal disease) on dialysis: Plan: * Will provide HD this morning. Orders have been entered into EMR and HD RN notified * Outpatient HD Rx: SKIP RASMUSSEN, 3 hr, F-180NR, Qb 400/Qd 500, 2K 2Ca, EDW 57 kg * Monitor PRP (2) Osteomyelitis: Plan: * On empiric IV Cefepime * Patient reports that she will undergo L BKA this coming week. Await further input from Podiatry (3) HTN (hypertension): Plan: * In part related to LLE pain * Continue Metoprolol, Amlodipine, Lisinopril, Clonidine (4) Anemia: Plan: * Hgb 7.4-->8.3 following 1 unit PRBC 05/08/23 * Monitor H&H Admission and Anticipated Discharge Date Admission Date: May 06, 2023 Subjective Mrs. Hudson was evaluated in her hospital room this morning. She denies fever, angina or dyspnea. She reports that she is accepting of LLE BKA if needed but was tearful this morning Review of Systems Constitutional: no fever Eyes: no problem reported Ear, Nose, Mouth, Throat: no problem reported Respiratory: no cough and no dyspnea Cardiovascular: no chest pain Gastrointestinal: + nausea; no vomiting and no diarrhea/lo ose stools Physical Exam Constitutional: + ill appearing Eyes: PERRL, conjunctivae normal, anicteric sclerae ENMT: external ear and nose normal, oropharynx normal Neck: trachea midline, no thyromegaly Respiratory: normal respiratory effort, lungs clear to auscultation Cardiovascular: RRR, no murmur, no edema Extremities: + AV fistula (R BC AVF +bruit) Gastrointestinal (Abdomen): normal bowel sounds, soft, nontender, no hepatosplenomegaly Results & Data Vital Signs (Past 12 Hours) Vital Signs Temp Pulse Pulse Resp BP Pulse Ox O2 Del Method 05/09/23 07:38 36.8 C 64 18 122/57 L 90 Room Air 05/09/23 02:18 37.1 C 67 18 159/62 H 92 Room Air 05/08/23 22:07 78 05/08/23 22:07 37.5 C 78 18 163/67 H 91 Room Air Laboratory Results Laboratory Results - last 24 hr 05/08/23 05/08/23 05/08/23 05:39 12:45 12:47 WBC RBC Hgb 8.4 L Hct 25.8 L MCV MCH MCHC RDW Std Deviation RDW Coeff of Evette Plt Count MPV Immature Gran % (Auto) Neut % (Auto) Lymph % (Auto) Ward % (Auto) Eos % (Auto) Baso % (Auto) Reticulocyte % (Auto) 2.0 Neut # (Auto) Lymph # (Auto) Ward # (Auto) Eos # (Auto) Baso # (Auto) Reticulocyte # 0.05 Immature Gran # (Auto) Sodium Potassium Chloride Carbon Dioxide Anion Gap BUN Creatinine Est Cr Clr Drug Dosing Est GFR ( Amer) Est GFR (Non-Af Amer) BUN/Creatinine Ratio Glucose POC Glucose Calcium Iron 34 L TIBC 123 L Unsaturated IBC 89 L Transferrin % Sat 28 Ferritin 1557.0 H Vitamin B12 474 Folate > 22.30 Random Vancomycin Blood Type A Positive Antibody Screen NEGATIVE 05/09/23 05/09/23 07:35 07:36 WBC 8.59 RBC 2.61 L Hgb 8.3 L Hct 25.5 L MCV 97.7 MCH 31.8 MCHC 32.5 RDW Std Deviation 54.1 H RDW Coeff of Evette 15.5 H Plt Count 190 MPV 9.7 Immature Gran % (Auto) 0.3 Neut % (Auto) 80.9 Lymph % (Auto) 11.2 Ward % (Auto) 6.2 Eos % (Auto) 1.2 Baso % (Auto) 0.2 Reticulocyte % (Auto) Neut # (Auto) 6.95 H Lymph # (Auto) 0.96 L Ward # (Auto) 0.53 Eos # (Auto) 0.10 Baso # (Auto) 0.02 Reticulocyte # Immature Gran # (Auto) 0.03 Sodium 128 L Potassium 4.5 Chloride 92 L Carbon Dioxide 29 Anion Gap 7 BUN 42 H Creatinine 4.48 H D Est Cr Clr Drug Dosing 10.4 Est GFR ( Amer) 11.5 Est GFR (Non-Af Amer) 9.9 BUN/Creatinine Ratio 9.4 L Glucose 101 H POC Glucose 110 H Calcium 8.4 L Iron TIBC Unsaturated IBC Transferrin % Sat Ferritin Vitamin B12 Folate Random Vancomycin 15.2 Blood Type Antibody Screen PG Care Time/CCT Total # of Minutes Spent Total Time Spent with Patient: Total time spent is greater than 50% in coordination of care (as documented) at patient's floor/unit and/or counseling patient: Coding Level of Care Code 72954 SUB INP/OBS CARE 350MIN Diagnoses ESRD (end stage renal disease) on dialysis N18.6; Z99.2 Osteomyelitis M86.9 HTN (hypertension) I10 Anemia D64.9
[2023-05-09] MEDS ORDERED: Nursing to Pharmacy Communication SCH (08:45)
--- NOTE | 2023-05-09 08:59 | Hospitalist Progress Note ---
Date of Service May 09, 2023 Assessment & Plan (1) Diabetic infection of left foot: Plan: Malodorous left foot infection; sent in while patient was at dialysis on 05/[address] Dias on 03/15 with partial foot amputation Wound culture Proteus and Klebsiella sensitive to Cefepime MRI left ankle ordered concerning for osteomyelitis Patient has been taking vancomycin on dialysis days for the past 5 weeks to cover for osteomyelitis Vancomycin + cefepime increased pain control Dr. Richardson to bookcase for May 14 (2) Peripheral arterial disease: Plan: s/p endovascular intervention 04/04. Per Dr Campbell' note at that time was supposed to follow up with non-invasive testing as outpatient in 1-2 weeks although I don't see this was ever performed therefore will consult Dr Campbell to see if further testing warranted at this time. (3) Anemia: Plan: anemia of chronic renal disease, plus influenced by infection B12, folate, iron studies, retic Suspect secondary to ESRD and will defer management for nephrology regarding EPO injections Aim Hgb > 7 unless this needs to be higher for her orthopedic operation (4) ESRD (end stage renal disease) on dialysis: Plan: Consult nephrology for ongoing dialysis management Restart on her usual anti-hypertensives hopeful hyponatremia will be improved on dialysis (5) DM II (diabetes mellitus, type II), controlled: Plan: HbA1C not accurate in setting of ESRD on dialysis Patient is not currently on any diabetic medications at home With current glucose measurements this appears to be a historical rather than current diagnosis therefore BSG ACHS and insulin discontinued (6) CHF (congestive heart failure): Plan: HFpEF last echo 04/04 with preservef systolic function Fluid management with dialysis (7) UTI (urinary tract infection): Plan: Ruled out Plan VTE Prophylaxis - heparin 5000 units SQ BID (on hold pending stability in Hgb) Diet - dialysis renal Disposition - continued admission pending BKA on med/tele Admission and Anticipated Discharge Date Admission Date: May 06, 2023 Subjective patient is tearful understands that her foot infection is significant she will need to blood in the amputation. She is tearful and requesting improvement in pain control Physical Exam Physical Exam: her left leg previous had a transmetatarsal amputation there is dark eschar in the will be suture line her heel is blackened with what appears to be beginnings of wet gangrene the remainder leg is dusky with poor capillary refill and very tender to touch the right foot is intact without evidence of skin breakdown but she is missing her right toe that area is healed well Results & Data Results & Data Vital Signs (Past 12 Hours) Vital Signs Temp Pulse Pulse Resp BP Pulse Ox O2 Del Method 05/09/23 07:38 98.2 F 64 18 122/57 L 90 Room Air 05/09/23 02:18 98.8 F 67 18 159/62 H 92 Room Air 05/08/23 22:07 78 05/08/23 22:07 99.5 F 78 18 163/67 H 91 Room Air Laboratory Results reviewed CBC reviewed Chemistry PG Care Time/CCT Total # of Minutes Spent Total Time Spent with Patient: Total time spent is greater than 50% in coordination of care (as documented) at patient's floor/unit and/or counseling patient: Coding Level of Care Code 17266 SUB INP/OBS CARE 2/35MIN Diagnoses Diabetic infection of left foot E11.628; L08.9 Peripheral arterial disease I73.9 Anemia D64.9 ESRD (end stage renal disease) on dialysis N18.6; Z99.2 DM II (diabetes mellitus, type II), controlled E11.9 CHF (congestive heart failure) I50.9 UTI (urinary tract infection) N39.0
--- NOTE | 2023-05-09 11:27 | Ultrasound Report ---
ULTRASOUND LEFT LOWER EXTREMITY ARTERIAL CLINICAL HISTORY: Peripheral arterial disease. Heel wound. COMPARISON STUDY: Left lower extremity arterial ultrasound dated 03/30/2023. TECHNIQUE: Real-time, grayscale and color Doppler sonography of the arteries of the left lower extrem ity is performed from the inguinal crease to the foot. The patient declined ankle-brachial index asse ssment. FINDINGS: Atherosclerotic plaque and irregularity is seen throughout the arteries of the left lower e xtremity. There are triphasic arterial waveforms in the common femoral artery velocities measuring up to 186 cm/s. The profunda femoris artery is patent with velocities measuring up to 173 cm/s. A stent is suggested throughout the superficial femoral artery. There are elevated velocities within the pro ximal superficial femoral artery measuring up to 262 cm/s. There are blunted arterial waveforms in th e mid to distal portions of the stent with velocities measuring up to 248 cm/s.There are slightly jayleen nted arterial upstrokes within the popliteal artery with velocities measuring up to 152 cm/s. There i s at least two-vessel runoff to the foot. Velocities in the posterior tibial artery measure up to 65 cm/s. There are elevated velocities within the anterior vertebral artery proximally, which measure up to 249 cm/s. The dorsalis pedis artery is patent with velocities measuring up to 214 cm/s. There may be partial occlusion of the peroneal artery. Imaged portions of the peroneal artery show blunted art erial upstrokes and velocities measure up to 22 cm/s. IMPRESSION: 1. A stent within the superficial femoral artery is patent. Elevated velocities within the stent sugg est stenosis. See above. 2. There are elevated velocities in the anterior tibial artery suggesting stenosis. 3. There is at least two-vessel runoff to the foot. Segments of the peroneal artery may be occluded. Dictated: 05/09/2023 8:59 AM Transcribed: 05/09/2023 9:09 AM Néstor [id number] EVAN_Renata Electronically signed by: Frank Jones M.D. 05/09/2023 11:26 AM
[2023-05-09] MEDS: HEPARIN SOD (PORCINE) 1000 UNIT/ML IV SCH (12:08)
--- NOTE | 2023-05-09 12:21 | Orthopedic Consultation ---
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 At this point patient is open to surgical intervention with left below-knee amputation. Patient has attempted limb salvage for approximately a year with Dr. Arun Cedeno. Care plan discussed with Dr. Rocha and he is in agreement. We will follow with you and confirm care plan with patient tomorrow after she has had time to consider and discuss with her . Thank you for the opportunity to consult in the care of this patient. 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 Requesting Physician: Sushant Miramontes MD, Barrett Rocha MD Attending Physician: Barrett Rocha MD History of Present Illness This 62-year-old female was seen at the request of the above-noted physicians after she was admitted to the hospitalist service due to worsening malodorous, gangrenous condition of her left foot transmetatarsal amputation. She had prior transmetatarsal amputation and multiple debridements performed by Yong Dias D.P.M. Patient's condition has steadily worsened due to her significant medical comorbidities including peripheral vascular disease with prior superficial femoral artery stent, end-stage renal disease requiring hemodialysis on Tuesday, Tuesday and Tuesday, coronary artery disease, diabetes mellitus type 2 and tobacco abuse among other challenges. Allergies Allergy/AdvReac Type Severity Reaction Status Date / Time morphine Allergy Severe Hallucinati Verified 05/06/23 16:01 ng codeine Allergy Intermediate Redness of Verified 05/06/23 16:01 Skin prednisone Allergy Intermediate Itching Verified 05/06/23 16:01 Home Medications Medication Instructions Recorded Confirmed Type albuterol sulfate 90 mcg/actuation 1 puff inhalation QID PRN bad cough 11/12/22 05/06/23 History aerosol inhaler allopurinol 100 mg tablet 100 mg PO DAILY 11/12/22 05/06/23 History ascorbic acid (vitamin C) 500 mg 500 mg PO DAILY 11/12/22 05/06/23 History capsule aspirin 81 mg chewable tablet 81 mg PO DAILY 11/12/22 05/06/23 History atorvastatin 40 mg tablet (Lipitor) 40 mg PO HS 11/12/22 05/06/23 History cholecalciferol (vitamin D3) 50 50 mcg PO DAILY 11/12/22 05/06/23 History mcg (2,000 unit) tablet clonidine HCl 0.1 mg tablet 0.1 mg PO DAILY 11/12/22 05/06/23 History clopidogrel 75 mg tablet 75 mg PO DAILY 11/12/22 05/06/23 History denosumab 60 mg/mL subcutaneous 60 mg subcut Q6M 11/12/22 05/06/23 History syringe (Prolia) docusate sodium 100 mg capsule 100 mg PO DAILY PRN Constipation 11/12/22 05/06/23 History (Colace) esomeprazole magnesium 40 mg 40 mg PO DAILY 11/12/22 05/06/23 History capsule,delayed release (Nexium) ezetimibe 10 mg tablet 10 mg PO DAILY 11/12/22 05/06/23 History furosemide 40 mg tablet (Lasix) 40 mg PO DAILY 11/12/22 05/06/23 History isosorbide mononitrate 30 mg 30 mg PO HS 11/12/22 05/06/23 History tablet,extended release 24 hr levothyroxine 125 mcg tablet 125 mcg PO QAM 11/12/22 05/06/23 History lisinopril 40 mg tablet (Zestril) 40 mg PO DAILY 11/12/22 05/06/23 History loratadine 10 mg tablet 10 mg PO DAILY PRN allergies 11/12/22 05/06/23 History melatonin 10 mg capsule 10 mg PO HS 11/12/22 05/06/23 History metoprolol tartrate 50 mg tablet See Rx Instructions .Route .COMPLEX 11/12/22 05/06/23 History nitroglycerin 0.4 mg sublingual 0.4 mg sublingual DIRECTED PRN 11/12/22 05/06/23 History tablet Chest Pain sevelamer carbonate 800 mg tablet 800 mg PO TIDM 11/12/22 05/06/23 History vit B,C-folic ac 800 mcg-zinc 12.5 1 tab PO DAILY 11/12/22 05/06/23 History mg-selen-D3 2,000 unit-vit E tablet (RenaPlex-D) acetaminophen 325 mg tablet 650 mg (2 x 325 mg) PO Q4H PRN 01/05/23 05/06/23 Rx fever or pain #0 tabs sennosides 8.6 mg tablet (Senokot) 17.2 mg (2 x 8.6 mg) PO BID #0 tabs 01/05/23 05/06/23 Rx calcium carbonate 500 mg-vitamin 1 tab PO BID 03/14/23 05/06/23 History D3 10 mcg (400 unit) tablet (Oyster Shell Calcium-Vitamin D3) amlodipine 10 mg tablet 10 mg PO DAILY #30 tabs 04/07/23 05/06/23 Rx calcitriol 0.25 mcg capsule 0.25 mcg PO QAM #30 caps 04/07/23 05/06/23 Rx oxycodone 5 mg tablet 5 mg PO Q4H PRN Pain #15 tabs 04/07/23 05/06/23 Rx Patient History Medical History Anemia due to chronic kidney disease Depression Open wound of left foot PAD (peripheral artery disease) Encounter for pre-operative examination ESRD (end stage renal disease) on dialysis HD Follows with Dr. Mike Espinal CHF (congestive heart failure) Osteomyelitis of left foot Hypothyroidism Anemia Tobacco abuse Hyperlipidemia HTN (hypertension) CAD (coronary artery disease) DM II (diabetes mellitus, type II), controlled Surgical History S/P drug eluting coronary stent placement Social History Smoking Status: Current every day smoker Tobacco Type: Cigarettes Cigarettes Per Day: 5; Second Hand Exposure: No; Do You Dip or Chew Tobacco: No; Hx Alcohol Use: No Hx Substance Use: No Preferred Language: Chinese Communication Ability: Effective Surgery Technician Required: No Beliefs That Will Affect Care: None Current Living Situation: Spouse and Family Feels Safe at Home: Yes Assistive Devices: Walker and Wheelchair Physical Exam Physical Exam: Currently undergoing hemodialysis resting supine in dialysis suite. Constitutional: WD/WN, vitals as above Eyes: PERRL, conjunctivae normal, anicteric sclerae ENMT: external ear and nose normal, oropharynx normal Neck: trachea midline, no thyromegaly Respiratory: Unlabored breathing. No conversational dyspnea. Cardiovascular: Poor perfusion bilateral lower extremities with the left being worse than the right. Inability to palpate pedal pulses left residual transmetatarsal amputation. The left foot is somewhat warm. Gastrointestinal (Abdomen): Abdomen is soft, nontender and nondistended. Bowel sounds are present. Musculoskeletal: Focused examination left lower extremity demonstrates multiple ischemic ulcers. Previous transmetatarsal/Choparts amputation left foot with large necrotic, malodorous, gangrenous eschars distal and lateral hindfoot. Slight malodorous discharge with several small punctate moistened areas along the left foot. Inability to palpate pedal pulses. Foot is somewhat warm. Any passive or active range of motion of the left residual foot generates severe discomfort. Allodynia and hyperesthesias are noted with palpation distal to the ankle. Skin: Multiple small ischemic ulcers bilateral upper and lower extremities. Neurologic: PERRL, EOMI, accommodation nl, no face palsy, no dysarthria Psychiatric: A+Ox3, euthymic affect Lymphatic: no cervical or axillary lymphadenopathy Results & Data Vital Signs (Past 12 Hours) Vital Signs Temp Pulse Pulse Pulse Resp BP BP 05/09/23 11:00 62 142/52 H 05/09/23 10:33 05/09/23 10:30 63 162/65 H 05/09/23 10:15 59 L 147/57 H 05/09/23 09:55 36.9 C 59 L 05/09/23 09:53 64 05/09/23 07:38 36.8 C 64 18 122/57 L 05/09/23 02:18 37.1 C 67 18 159/62 H Pulse Ox O2 Del Method 05/09/23 11:00 05/09/23 10:33 Room Air 05/09/23 10:30 05/09/23 10:15 05/09/23 09:55 05/09/23 09:53 05/09/23 07:38 90 Room Air 05/09/23 02:18 92 Room Air Diagnostic Findings Radiographs, arterial Doppler and MRI images and reports reviewed demonstrating previous transmetatarsal/Choparts amputation left lower extremity with moth- eaten appearance of the cuboid and partially into the calcaneus. Fluid collections are noted with increased signal in the calcaneus and residual cuboid bridging into the residual talus. The residual cuneiform bones are nondistinct. Incomplete poor quality MRI due to patient inability to complete the study. A rterial Doppler demonstrates partial occlusion of the SFA stent, skip lesions of occlusion within the peroneal artery and partially occluded tibialis anterior. 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
--- NOTE | 2023-05-09 13:43 | Pharmacy Report ---
Pharmacy PK ABX Note - Date of Service May 09, 2023 - Assessment and Plan Assessment 62 year old F receiving vancomycin and cefepime for treatment of foot infection. Patient has hx of diabetes. Pertinent microbiologic data includes: left foot culture currently growing a gram negative bacilli. E. faecium from most recent foot culture, patient was on vancomycin 500 mg post-dialysis MWF. More extensive culture history can be reviewed in EMR. Typical dialysis schedule MWF. Plan is for left BKA on 05/13/23. Left foot culture growing Proteus vulgaris (resistant to ceftriaxone) and Klebsiella oxytoca (resistant to cefazolin). Plan Vancomycin * Random level today 15.2 mcg/mL * Will redose 500 mg IV x 1 after hemodialysis today * Hemodialysis MWF - next random level on Tuesday prior to HD Cefepime * 1 g IV q24h - appropriate for patient on HD Pharmacy will continue to follow and will adjust dose/frequency as necessary. Thank you. Pharmacy has transitioned to AUC monitoring for vancomycin. AUC/ELIUD is the preferred PK/PD target and is associated with decreased risk of nephrotoxicity compared to traditional trough targets.
[2023-05-09] MEDS ORDERED: VANCOMYCIN HCL 500 MG in NSS 100mL IV ONE (16:00)
[2023-05-09] MEDS: CEFEPIME 1,000 MG in SYRINGE 0 ML IV SCH (16:53)
[2023-05-09] MEDS: oxyCODONE HCL IR 5 MG TAB (IMMEDIATE RELEASE) PO PRN (21:13)
[2023-05-09] MEDS: ACETAMINOPHEN 500 MG TAB PO SCH (21:13)
[2023-05-09] MEDS: ATORVASTATIN 40 MG TAB PO SCH (21:14)
[2023-05-09] MEDS: MELATONIN 3 MG TAB PO SCH (21:15)
[2023-05-09] MEDS: lisinopril 40 MG TAB PO SCH (21:15)
[2023-05-09] MEDS: ISOSORBIDE MONO EXTENDED REL 30 MG TABCR PO SCH (21:16)
[2023-05-10] MEDS: LEVOTHYROXINE SODIUM 125 MCG TABLET PO SCH (05:21)
--- NOTE | 2023-05-10 08:33 | Nephrology Progress Note ---
Date of Service May 10, 2023 Assessment & Plan (1) ESRD (end stage renal disease) on dialysis: Plan: * Volume status and electrolyte balance are acceptable. Will plan next HD for am * Outpatient HD Rx: SKIP RASMUSSEN, 3 hr, F-180NR, Qb 400/Qd 500, 2K 2Ca, EDW 57 kg * Monitor PRP (2) Osteomyelitis: Plan: * On empiric IV Cefepime * Patient reports that she will undergo L BKA Tuesday after HD. Await further input from Orthopedic Surgery (3) HTN (hypertension): Plan: * In part related to LLE pain * Continue Metoprolol, Amlodipine, Lisinopril, Clonidine (4) Anemia: Plan: * Hgb 7.4-->8.3 following 1 unit PRBC 05/08/23 * Monitor H&H Admission and Anticipated Discharge Date Admission Date: May 06, 2023 Subjective Mrs. Hudson was evaluated in her hospital room this morning. She c/o L foot discomfort and reports that L BKA is tentatively planned for Tuesday after HD Review of Systems Constitutional: no fever Eyes: no problem reported Ear, Nose, Mouth, Throat: no problem reported Respiratory: no cough and no dyspnea Cardiovascular: no chest pain Gastrointestinal: + nausea; no vomiting and no diarrhea/lo ose stools Physical Exam Constitutional: + ill appearing Eyes: PERRL, conjunctivae normal, anicteric sclerae ENMT: external ear and nose normal, oropharynx normal Neck: trachea midline, no thyromegaly Respiratory: normal respiratory effort, lungs clear to auscultation Cardiovascular: RRR, no murmur, no edema Extremities: + AV fistula (R BC AVF +bruit) Gastrointestinal (Abdomen): normal bowel sounds, soft, nontender, no hepatosplenomegaly Skin: L foot TMA site remains partially open. L heel with foul smelling, necrotic ulcer Results & Data Vital Signs (Past 12 Hours) Vital Signs Temp Pulse Pulse Pulse Resp BP Pulse Ox 05/10/23 07:17 36.3 C L 65 18 174/76 H 91 05/10/23 03:19 37.1 C 65 18 153/60 H 93 05/10/23 00:21 72 05/09/23 23:57 36.7 C 75 18 153/73 H 93 O2 Del Method 05/10/23 07:17 Room Air 11/28/23 03:19 Room Air 05/10/23 00:21 05/09/23 23:57 Room Air PG Care Time/CCT Total # of Minutes Spent Total Time Spent with Patient: Total time spent is greater than 50% in coordination of care (as documented) at patient's floor/unit and/or counseling patient: Coding Level of Care Code 41992 SUB INP/OBS CARE 3/50MIN Diagnoses ESRD (end stage renal disease) on dialysis N18.6; Z99.2 Osteomyelitis M86.9 HTN (hypertension) I10 Anemia D64.9
[2023-05-10] MEDS: ASPIRIN 81 MG CHEW PO SCH (08:34)
[2023-05-10] MEDS: ACETAMINOPHEN 500 MG TAB PO SCH ×3 (08:34→21:12)
[2023-05-10] MEDS: amLODIPine BESYLATE 5 MG TAB PO SCH (08:35)
[2023-05-10] MEDS: DOCUSATE SODIUM 100 MG CAP PO PRN (08:35)
[2023-05-10] MEDS: oxyCODONE HCL IR 5 MG TAB (IMMEDIATE RELEASE) PO PRN ×3 (08:35→21:26)
[2023-05-10] MEDS: cloNIDine HCL 0.1 MG TAB PO SCH (08:36)
[2023-05-10] MEDS: SEVELAMER HCL 800 MG TABLET PO SCH ×3 (08:36→16:52)
[2023-05-10] MEDS: CLOPIDOGREL BISULFATE 75 MG TAB PO SCH (08:36)
[2023-05-10] MEDS: SENNA 8.6 MG TAB PO SCH ×2 (08:36→21:14)
[2023-05-10] MEDS: METOPROLOL TARTRATE 50 MG TAB PO SCH ×2 (08:36→21:14)
[2023-05-10] MEDS: PANTOprazole 40 MG TAB PO SCH (08:36)
[2023-05-10] MEDS: FUROSEMIDE 40 MG TAB PO SCH (08:37)
[2023-05-10] MEDS: EZETIMIBE 10 MG TAB PO SCH (08:37)
[2023-05-10] MEDS: allopurinoL 100 MG TAB PO SCH (08:37)
[2023-05-10] MEDS: CEFEPIME 1,000 MG in SYRINGE 0 ML IV SCH (15:48)
--- NOTE | 2023-05-10 17:46 | Vascular Medicine Consultation ---
Date of Consultation May 10, 2023 Assessment & Plan (1) Gangrene of left foot: 2. PAD -post multiple left lower extremity endovascular interventions 3. End-stage renal disease on HD 4. Type 2 diabetes 5. Coronary artery disease post PCI 6. Hypertension 7. Anemia Patient's nonhealing wound/infection has progressed now with extensive gangrene involving surgical wound and heel. Plans for left BKA later this week. Reviewed patient's repeat arterial duplex. Prior stents are patent with mild to moderate SFA restenosis. Arterial perfusion adequate to heal surgical wound after planned BKA. No need for additional revascularization. Clopidogrel can be held as necessary prior to surgery. Resume when safe from a surgical standpoint/stable hemoglobin. Vascular medicine to sign off. Please contact if can help going forward History of Present Illness Attending Physician: Barrett Rocha MD History of Present Illness Mrs. Hudson is a very pleasant 62-year-old woman with PAD and threatened limb. Prior medical history remarkable for end-stage renal disease on dialysis, type 2 diabetes, CAD post prior WILLIAM, hypertension, hypothyroidism, tobacco abuse, GERD. She has been dealing with left lower extremity nonhealing ulcers complicated by osteomyelitis since at least September 2022. Multiple partial amputations prior to eventual left TMA 12/2022. Readmitted 03/2023 with osteomyelitis and sepsis. Additional debridement/forefoot amputation with Dr. Dias during that admission. Course complicated by transient hemorrhagic shock and developed new left heel wound. Discharged on IV vancomycin. Return 05/06 with foul-smelling, gangrenous left foot infection. Restarted on broad-spectrum antibiotics. Seen by podiatry and orthopedics and left BKA recommended. PAD history remarkable for bilateral iliac stenting 05/2022 at [facility]. Repeat intervention with JAYLENE/stenting of proximal SFA 12/2022. 03/2023 Additional mid SFA and proximal to mid popliteal stenting (5.0 x 80 Supera x2) along with distal left JACINDA angioplasty. During angiogram noted to have a left midfoot AV fistula of DPA with reduced flow after prolonged balloon inflation. Repeat arterial duplex 05/09/2023 showed patent left SFA/popliteal stents, 50 to 74% restenosis in proximal (PSV 262) and distal (PSV 248) stents. Patent JACINDA, WINE STEWARD/STEWARDESS with 50 to 74% stenosis in proximal JACINDA and DPA (PSV 249, 214). Allergies Allergy/AdvReac Type Severity Reaction Status Date / Time morphine Allergy Severe Hallucinati Verified 05/06/23 16:01 ng codeine Allergy Intermediate Redness of Verified 05/06/23 16:01 Skin prednisone Allergy Intermediate Itching Verified 05/06/23 16:01 Home Medications Medication Instructions Recorded Confirmed Type albuterol sulfate 90 mcg/actuation 1 puff inhalation QID PRN bad cough 11/12/22 05/06/23 History aerosol inhaler allopurinol 100 mg tablet 100 mg PO DAILY 11/12/22 05/06/23 History ascorbic acid (vitamin C) 500 mg 500 mg PO DAILY 11/12/22 05/06/23 History capsule aspirin 81 mg chewable tablet 81 mg PO DAILY 11/12/22 05/06/23 History atorvastatin 40 mg tablet (Lipitor) 40 mg PO HS 11/12/22 05/06/23 History cholecalciferol (vitamin D3) 50 50 mcg PO DAILY 11/12/22 05/06/23 History mcg (2,000 unit) tablet clonidine HCl 0.1 mg tablet 0.1 mg PO DAILY 11/12/22 05/06/23 History clopidogrel 75 mg tablet 75 mg PO DAILY 11/12/22 05/06/23 History denosumab 60 mg/mL subcutaneous 60 mg subcut Q6M 11/12/22 05/06/23 History syringe (Prolia) docusate sodium 100 mg capsule 100 mg PO DAILY PRN Constipation 11/12/22 05/06/23 History (Colace) esomeprazole magnesium 40 mg 40 mg PO DAILY 11/12/22 05/06/23 History capsule,delayed release (Nexium) ezetimibe 10 mg tablet 10 mg PO DAILY 11/12/22 05/06/23 History furosemide 40 mg tablet (Lasix) 40 mg PO DAILY 11/12/22 05/06/23 History isosorbide mononitrate 30 mg 30 mg PO HS 11/12/22 05/06/23 History tablet,extended release 24 hr levothyroxine 125 mcg tablet 125 mcg PO QAM 11/12/22 05/06/23 History lisinopril 40 mg tablet (Zestril) 40 mg PO DAILY 11/12/22 05/06/23 History loratadine 10 mg tablet 10 mg PO DAILY PRN allergies 11/12/22 05/06/23 History melatonin 10 mg capsule 10 mg PO HS 11/12/22 05/06/23 History metoprolol tartrate 50 mg tablet See Rx Instructions .Route .COMPLEX 11/12/22 05/06/23 History nitroglycerin 0.4 mg sublingual 0.4 mg sublingual DIRECTED PRN 11/12/22 05/06/23 History tablet Chest Pain sevelamer carbonate 800 mg tablet 800 mg PO TIDM 11/12/22 05/06/23 History vit B,C-folic ac 800 mcg-zinc 12.5 1 tab PO DAILY 11/12/22 05/06/23 History mg-selen-D3 2,000 unit-vit E tablet (RenaPlex-D) acetaminophen 325 mg tablet 650 mg (2 x 325 mg) PO Q4H PRN 01/05/23 05/06/23 Rx fever or pain #0 tabs sennosides 8.6 mg tablet (Senokot) 17.2 mg (2 x 8.6 mg) PO BID #0 tabs 01/05/23 05/06/23 Rx calcium carbonate 500 mg-vitamin 1 tab PO BID 03/14/23 05/06/23 History D3 10 mcg (400 unit) tablet (Oyster Shell Calcium-Vitamin D3) amlodipine 10 mg tablet 10 mg PO DAILY #30 tabs 04/07/23 05/06/23 Rx calcitriol 0.25 mcg capsule 0.25 mcg PO QAM #30 caps 04/07/23 05/06/23 Rx oxycodone 5 mg tablet 5 mg PO Q4H PRN Pain #15 tabs 04/07/23 05/06/23 Rx Patient History Medical History Anemia due to chronic kidney disease Depression Open wound of left foot PAD (peripheral artery disease) Encounter for pre-operative examination ESRD (end stage renal disease) on dialysis HD Follows with Dr. Mike Espinal CHF (congestive heart failure) Osteomyelitis of left foot Hypothyroidism Anemia Tobacco abuse Hyperlipidemia HTN (hypertension) CAD (coronary artery disease) DM II (diabetes mellitus, type II), controlled Surgical History S/P drug eluting coronary stent placement Social History Smoking Status: Current every day smoker Tobacco Type: Cigarettes Cigarettes Per Day: 5; Second Hand Exposure: No; Do You Dip or Chew Tobacco: No; Hx Alcohol Use: No Hx Substance Use: No Preferred Language: Armenian Communication Ability: Effective Vibrating Screed Operator Required: No Beliefs That Will Affect Care: Islam Current Living Situation: Spouse and Family Feels Safe at Home: Yes Assistive Devices: Walker and Wheelchair Review of Systems Review of Systems: All systems reviewed & are unremarkable except as noted in HPI & below Physical Exam Constitutional: well developed Eyes: + anicteric sclerae Respiratory: normal respiratory effort, lungs clear to auscultation Cardiovascular: RRR, no murmur, no edema Rate/Rhythm: regular rate and regular rhythm Heart Sounds: no murmur Vessels: femoral pulses present and radial pulses present; + posterior tibial pulses abnormal, + dorsalis pedis puls es abnormal and + popliteal pulses abnormal Extremities: + AV fistula (palpable thrill RUE); no edema LT foot surgical wound open gangrenous foul-smelling tissue along the lateral aspect of the wound. Dry gangrene involving left heel extending around to midfoot. Nonpalpable DP pulse Gastrointestinal (Abdomen): Percussion/Palpation: abdomen soft; abdomen nontender Skin: + ulcer; no rashes Psychiatric: A+Ox3, euthymic affect Results & Data Vital Signs (Past 12 Hours) Vital Signs Temp Pulse Pulse Resp BP Pulse Ox O2 Del Method 05/10/23 15:41 61 05/10/23 15:18 98.1 F 59 L 18 154/68 H 100 Room Air 05/10/23 11:17 97.9 F 59 L 18 138/63 94 Room Air 05/10/23 09:53 64 05/10/23 07:17 97.3 F L 65 18 174/76 H 91 Room Air PG Care Time/CCT Total # of Minutes Spent Total Time Spent with Patient: Total time spent is greater than 50% in coordination of care (as documented) at patient's floor/unit and/or counseling patient: Coding Level of Care Code 04553 INT INP/OBS CARE 2/55MIN Diagnoses Gangrene of left foot I96
--- NOTE | 2023-05-10 18:33 | Hospitalist Progress Note ---
Date of Service May 10, 2023 Assessment & Plan (1) Diabetic infection of left foot: Plan: Malodorous left foot infection; sent in while patient was at dialysis on 05/[address] Dias on 03/15 with partial foot amputation Wound culture Proteus and Klebsiella sensitive to Cefepime MRI left ankle ordered concerning for osteomyelitis Patient has been taking vancomycin on dialysis days for the past 5 weeks to cover for osteomyelitis Vancomycin + cefepime increased pain control try medication for neuropathic pain did poorly in the past with carotid we will try dose of Lyrica at bedtime Dr. Richardson to bookcase for May 14 (2) Peripheral arterial disease: Plan: s/p endovascular intervention 04/04. Dr. Campbell saw the patient review of arterial Dopplers suggest prior stents are patent with mild to moderate SFA restenosis arterial perfusion seems adequate to heal surgical wounds after plan BKA per his recommendations. Clopidogrel can be stopped prior to surgery and resume when safe from a postsurgical standpoint (3) Anemia: Plan: anemia of chronic renal disease, plus influenced by infection B12, folate, iron studies, retic Suspect secondary to ESRD and will defer management for nephrology regarding EPO injections (4) ESRD (end stage renal disease) on dialysis: Plan: Consult nephrology for ongoing dialysis management Restart on her usual anti-hypertensives hopeful hyponatremia will be improved on dialysis (5) DM II (diabetes mellitus, type II), controlled: Plan: HbA1C not accurate in setting of ESRD on dialysis Patient is not currently on any diabetic medications at home With current glucose measurements this appears to be a historical rather than current diagnosis therefore BSG ACHS and insulin discontinued (6) CHF (congestive heart failure): Plan: HFpEF last echo 04/04 with preservef systolic function Fluid management with dialysis (7) UTI (urinary tract infection): Plan: Ruled out Plan VTE Prophylaxis - heparin 5000 units SQ BID (on hold pending stability in Hgb) Diet - dialysis renal Disposition - continued admission pending BKA on med/tele Admission and Anticipated Discharge Date Admission Date: May 06, 2023 Subjective this pt remains occasionally tearful, asks for pastoral care visit for BKA this tuesday05/13/23 Physical Exam Physical Exam: Patient mostly with phantom pain now to her transmetatarsal area of her left f oot. No chest pain or pressure lungs are clear but diminished at the bases Card exam is regular Results & Data Results & Data Vital Signs (Past 12 Hours) Vital Signs Temp Pulse Pulse Resp BP Pulse Ox O2 Del Method 05/10/23 15:41 61 05/10/23 15:18 98.1 F 59 L 18 154/68 H 100 Room Air 05/10/23 11:17 97.9 F 59 L 18 138/63 94 Room Air 05/10/23 09:53 64 05/10/23 07:17 97.3 F L 65 18 174/76 H 91 Room Air PG Care Time/CCT Total # of Minutes Spent Total Time Spent with Patient: Total time spent is greater than 50% in coordination of care (as documented) at patient's floor/unit and/or counseling patient: Coding Level of Care Code 35787 SUB INP/OBS CARE 2/35MIN Diagnoses Diabetic infection of left foot E11.628; L08.9 Peripheral arterial disease I73.9 Anemia D64.9 ESRD (end stage renal disease) on dialysis N18.6; Z99.2 DM II (diabetes mellitus, type II), controlled E11.9 CHF (congestive heart failure) I50.9 UTI (urinary tract infection) N39.0
[2023-05-10] MEDS: ISOSORBIDE MONO EXTENDED REL 30 MG TABCR PO SCH (21:12)
[2023-05-10] MEDS: ATORVASTATIN 40 MG TAB PO SCH (21:13)
[2023-05-10] MEDS: MELATONIN 3 MG TAB PO SCH (21:14)
[2023-05-10] MEDS: lisinopril 40 MG TAB PO SCH (21:14)
[2023-05-10] MEDS: PREGABALIN 25 MG CAP PO SCH (21:15)
--- NOTE | 2023-05-10 21:17 | Orthopedic Progress Note ---
Date of Service May 10, 2023 Assessment & Plan (1) Chronic osteomyelitis of left foot with draining sinus: Plan: Discussion was had with the patient regarding the condition of her gangrenous, painful, malodorous left foot and lower extremity. After further discussion with her family and her technical internship, patient continues consent for surgical intervention with left below-knee amputation. Patient has attempted limb salvage for approximately a year with Dr. Arun Cedeno. Care plan discussed with Dr. Rocha and he is in agreement. We will need to discontinue clopidogrel to be ready for surgery on May 13. Thank you for the opportunity to consult in the care of this patient. 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 Patient had pastoral care visit earlier today to ease some of her concerns and feels somewhat better now. Complaining of some phantom limb symptoms related to the left forefoot and midfoot. General discomfort left lower extremity due to neuropathic pain. Physical Exam Physical Exam: Currently watching television in supine position in her hospital room. Constitutional: WD/WN, vitals as above Eyes: PERRL, conjunctivae normal, anicteric sclerae ENMT: external ear and nose normal, oropharynx normal Neck: trachea midline, no thyromegaly Gastrointestinal (Abdomen): Soft, nontender and nondistended. Musculoskeletal: Focused examination left lower extremity redemonstrates multiple ischemic ulcers. Previous transmetatarsal/Chopart's amputation left foot with large necrotic, malodorous, gangrenous eschars distal and lateral hindfoot. Malodorous discharge with several small punctate moistened areas along the left foot. Inability to palpate pedal pulses. Foot is somewhat warm. Any passive or active range of motion of the left residual foot generates severe discomfort. Allodynia and hyperesthesias are noted with palpation distal to the left ankle. Neurologic: PERRL, EOMI, accommodation nl, no face palsy, no dysarthria Psychiatric: A+Ox3, euthymic affect Lymphatic: no cervical or axillary lymphadenopathy Results & Data Vital Signs (Past 12 Hours) Vital Signs Temp Pulse Pulse Pulse Resp BP Pulse Ox 05/10/23 19:20 36.7 C 67 18 152/61 H 92 05/10/23 15:41 61 05/10/23 15:18 36.7 C 59 L 18 154/68 H 100 05/10/23 11:17 36.6 C 59 L 18 138/63 94 05/10/23 09:53 64 O2 Del Method 05/10/23 19:20 Room Air 05/10/23 15:41 05/10/23 15:18 Room Air 05/10/23 11:17 Room Air 05/10/23 09:53 Laboratory Results Reviewed. Diagnostic Findings As per consultation. (3) Diabetic ulcer of left foot associated with diabetes mellitus due to un derlying condition, with necrosis of bone Diabetic foot ulcer location: midfoot Qualified Code(s): E08.621 - Diabetes mellitus due to underlying condition with foot ulcer; L97.424 - Non-pressure chronic ulcer of left heel and midfoot with necrosis of bone
[2023-05-10] MEDS: HYDROmorphone INJ 1 MG/ML SYRINGE IV PRN (23:00)
[2023-05-11] MEDS: oxyCODONE HCL IR 5 MG TAB (IMMEDIATE RELEASE) PO PRN ×3 (02:37→19:55)
[2023-05-11] MEDS: LEVOTHYROXINE SODIUM 125 MCG TABLET PO SCH (06:11)
[2023-05-11 06:39] LABS: Hematocrit (blood only) 24.8 % (37.0-47.0); Hemoglobin 7.9 g/dl (12.0-16.0); Mean Corpuscular Hemoglobin 31.2 pg (25.0-34.0); Mean Corpuscular Hgb Conc 31.9 g/dL (32.0-36.0); Mean Platelet Volume 10.2 fL (9.4-12.4); Platelet Count 216 K/uL (130-400); RDW Coefficient of Variation 15.5 % (11.5-14.5); RDW Standard Deviation 54.7 fL (36.4-46.3); Red Blood Count 2.53 M/uL (4.20-5.40); White Blood Count 8.95 K/ul (4.8-10.8)
[2023-05-11] MEDS ORDERED: SODIUM CHLORIDE 0.9% 1,000 ML IV PRN (07:00)
[2023-05-11] MEDS ORDERED: HEPARIN SOD (PORCINE) 1000 UNIT/ML IV SCH (07:00)
[2023-05-11] MEDS ORDERED: EPOETIN ALFA 10,000 UNITS/ML VIAL IV SCH (07:00)
[2023-05-11 07:03] LABS: BUN Creatinine Ratio 9.3 (10-20); Calcium 7.9 mg/dl (8.6-10.3); Creatinine Clr Calc Pharmacy 12.4 ml/min; Est GFR (African American) 14.2 ml/min; Est GFR (Non-African American) 12.3 ml/min; Potassium 3.9 mmol/L (3.5-5.1)
--- NOTE | 2023-05-11 08:46 | Nephrology Progress Note ---
Date of Service May 11, 2023 Assessment & Plan (1) ESRD (end stage renal disease) on dialysis: Plan: * Will provide HD today. Orders have been entered into EMR and HD RN notified * Outpatient HD Rx: SKIP RASMUSSEN, 3 hr, F-180NR, Qb 400/Qd 500, 2K 2Ca, EDW 57 kg * Monitor PRP (2) Osteomyelitis: Plan: * On empiric IV Cefepime * Patient reports that she will undergo L BKA Tuesday morning. Await further input from Orthopedic Surgery * Primary service has started Lyrica 25 mg po BID to help alleviate pain (3) HTN (hypertension): Plan: * In part related to LLE pain * Continue Metoprolol, Amlodipine, Lisinopril, Clonidine (4) Anemia: Plan: * s/p 1 unit PRBC 05/08/23. H&H again trending down * Will provide AUGIE w/ HD but recommend transfusion for Hgb < or = 7.0 Admission and Anticipated Discharge Date Admission Date: May 06, 2023 Subjective Mrs. Hudson was evaluated in her hospital room this morning. She has persistent L foot discomfort Review of Systems Constitutional: no fever Eyes: no problem reported Ear, Nose, Mouth, Throat: no problem reported Respiratory: no cough and no dyspnea Cardiovascular: no chest pain Gastrointestinal: + nausea; no vomiting and no diarrhea/lo ose stools Physical Exam Constitutional: + ill appearing Eyes: PERRL, conjunctivae normal, anicteric sclerae ENMT: external ear and nose normal, oropharynx normal Neck: trachea midline, no thyromegaly Respiratory: normal respiratory effort, lungs clear to auscultation Cardiovascular: RRR, no murmur, no edema Extremities: + AV fistula (R BC AVF +bruit) Gastrointestinal (Abdomen): normal bowel sounds, soft, nontender, no hepatosplenomegaly Results & Data Vital Signs (Past 12 Hours) Vital Signs Temp Pulse Pulse Pulse Resp BP Pulse Ox 05/11/23 07:56 36.8 C 61 16 127/45 L 96 05/11/23 07:46 57 L 05/11/23 03:58 36.8 C 67 18 151/69 H 92 05/11/23 00:25 70 05/10/23 22:21 36.6 C 67 18 161/65 H 92 O2 Del Method 05/11/23 07:56 Room Air 05/11/23 07:46 05/11/23 03:58 Room Air 05/11/23 00:25 05/10/23 22:21 Room Air Laboratory Results Laboratory Results - last 24 hr 05/11/23 05:54 WBC 8.95 RBC 2.53 L Hgb 7.9 L Hct 24.8 L MCV 98.0 MCH 31.2 MCHC 31.9 L RDW Std Deviation 54.7 H RDW Coeff of Evette 15.5 H Plt Count 216 MPV 10.2 Sodium 133 L Potassium 3.9 Chloride 102 Carbon Dioxide 27 Anion Gap 4 BUN 35 H Creatinine 3.76 H D Est Cr Clr Drug Dosing 12.4 Est GFR ( Amer) 14.2 Est GFR (Non-Af Amer) 12.3 BUN/Creatinine Ratio 9.3 L Glucose 102 H Calcium 7.9 L Random Vancomycin 15.0 PG Care Time/CCT Total # of Minutes Spent Total Time Spent with Patient: Total time spent is greater than 50% in coordination of care (as documented) at patient's floor/unit and/or counseling patient: Coding Level of Care Code 20561 SUB INP/OBS CARE 3/50MIN Diagnoses ESRD (end stage renal disease) on dialysis N18.6; Z99.2 Osteomyelitis M86.9 HTN (hypertension) I10 Anemia D64.9
[2023-05-11] MEDS: SEVELAMER HCL 800 MG TABLET PO SCH ×3 (09:02→17:52)
[2023-05-11] MEDS: ACETAMINOPHEN 500 MG TAB PO SCH ×3 (09:02→19:57)
[2023-05-11] MEDS: EZETIMIBE 10 MG TAB PO SCH (09:10)
[2023-05-11] MEDS: ASPIRIN 81 MG CHEW PO SCH (09:10)
[2023-05-11] MEDS: allopurinoL 100 MG TAB PO SCH (09:10)
[2023-05-11] MEDS: PREGABALIN 25 MG CAP PO SCH ×2 (09:11→19:55)
[2023-05-11] MEDS: PANTOprazole 40 MG TAB PO SCH (09:11)
[2023-05-11] MEDS: SENNA 8.6 MG TAB PO SCH ×2 (09:11→19:57)
--- NOTE | 2023-05-11 09:15 | Pharmacy Report ---
Pharmacy PK ABX Note - Date of Service May 11, 2023 - Assessment and Plan Assessment 62 year old F receiving vancomycin and cefepime for treatment of foot infection. Patient has hx of diabetes. Pertinent microbiologic data includes: left foot culture currently growing a gram negative bacilli. E. faecium from most recent foot culture, patient was on vancomycin 500 mg post-dialysis MWF. More extensive culture history can be reviewed in EMR. Typical dialysis schedule MWF. Plan is for left BKA on 05/13/23. Left foot culture growing Proteus vulgaris (resistant to ceftriaxone) and Klebsiella oxytoca (resistant to cefazolin). Plan Vancomycin * Random level today 15 mcg/mL * Will redose 500 mg IV x 1 after hemodialysis today * Hemodialysis MWF - next random level on Tuesday prior to next likely HD * 750 mg IV x 1 on 05/13 after HD will likely be appropriate in light of no HD/vanco redose until Tuesday, but reassess on that day Cefepime * 1 g IV q24h - appropriate for patient on HD Pharmacy will continue to follow and will adjust dose/frequency as necessary. Thank you. Pharmacy has transitioned to AUC monitoring for vancomycin. AUC/ELIUD is the preferred PK/PD target and is associated with decreased risk of nephrotoxicity compared to traditional trough targets.
[2023-05-11] MEDS: HEPARIN SOD (PORCINE) 1000 UNIT/ML IV SCH ×2 (10:39→13:19)
[2023-05-11] MEDS: cloNIDine HCL 0.1 MG TAB PO SCH (13:26)
[2023-05-11] MEDS: FUROSEMIDE 40 MG TAB PO SCH (13:26)
[2023-05-11] MEDS: amLODIPine BESYLATE 5 MG TAB PO SCH (13:26)
[2023-05-11] MEDS: METOPROLOL TARTRATE 50 MG TAB PO SCH ×2 (13:27→19:57)
[2023-05-11] MEDS: HYDROmorphone INJ 1 MG/ML SYRINGE IV PRN (14:28)
[2023-05-11] MEDS ORDERED: VANCOMYCIN HCL 500 MG in NSS 100mL IV ONE (16:00)
[2023-05-11] MEDS: CEFEPIME 1,000 MG in SYRINGE 0 ML IV SCH (16:01)
--- NOTE | 2023-05-11 18:06 | Hospitalist Progress Note ---
Date of Service May 11, 2023 Assessment & Plan (1) Diabetic infection of left foot: Plan: Malodorous left foot infection; sent in while patient was at dialysis on 05/[address] Dias on 03/15 with partial foot amputation Wound culture Proteus and Klebsiella sensitive to Cefepime MRI left ankle ordered concerning for osteomyelitis Patient has been taking vancomycin on dialysis days for the past 5 weeks to cover for osteomyelitis Vancomycin + cefepime increased pain control, Phantom/ neuropathic pain improved with lyrica Dr. Richardson to bookcase for May 14 (2) Peripheral arterial disease: Plan: s/p endovascular intervention 04/04. Dr. Campbell saw the patient review of arterial Dopplers suggest prior stents are patent with mild to moderate SFA restenosis arterial perfusion seems adequate to heal surgical wounds after plan BKA per his recommendations. Clopidogrel can be stopped prior to surgery and resume when safe from a postsurgical standpoint (3) Anemia: Plan: anemia of chronic renal disease, plus influenced by infection B12, folate, iron studies, retic Suspect secondary to ESRD and will defer management for nephrology regarding EPO injections (4) ESRD (end stage renal disease) on dialysis: Plan: Consult nephrology for ongoing dialysis management Restart on her usual anti-hypertensives hopeful hyponatremia will be improved on dialysis (5) DM II (diabetes mellitus, type II), controlled: Plan: HbA1C not accurate in setting of ESRD on dialysis Patient is not currently on any diabetic medications at home With current glucose measurements this appears to be a historical rather than current diagnosis therefore BSG ACHS and insulin discontinued (6) CHF (congestive heart failure): Plan: HFpEF last echo 04/04 with preservef systolic function Fluid management with dialysis (7) UTI (urinary tract infection): Plan: Ruled out Plan VTE Prophylaxis - heparin 5000 units SQ BID (on hold pending stability in Hgb) Diet - dialysis renal Disposition - continued admission pending BKA on med/tele Admission and Anticipated Discharge Date Admission Date: May 06, 2023 Subjective Pt is improved after low dose lyrica, appreciated pastoral care consult for or BKA, 05/13/23 Physical Exam 2 Physical Exam: Patient improved phantom pain now to her transmetatarsal area of her left foot. No chest pain or pressure lungs are clear but diminished at the bases Card exam is regular Results & Data Results & Data Vital Signs (Past 12 Hours) Vital Signs Temp Pulse Pulse Pulse Resp BP BP 05/11/23 15:44 97.5 F L 55 L 16 102/45 L 05/11/23 15:37 66 05/11/23 14:27 136/65 05/11/23 13:23 69 16 182/67 H 05/11/23 13:00 97.7 F 67 172/69 H 05/11/23 12:30 62 147/57 H 05/11/23 12:00 63 131/56 L 05/11/23 11:30 63 128/48 L 05/11/23 11:00 59 L 127/53 L 05/11/23 10:30 61 134/56 L 05/11/23 10:00 62 138/59 L 05/11/23 09:32 63 137/66 05/11/23 09:25 97.9 F 63 05/11/23 08:00 05/11/23 07:56 98.2 F 61 16 127/45 L 05/11/23 07:46 57 L Pulse Ox O2 Del Method 05/11/23 15:44 96 Room Air 05/11/23 15:37 05/11/23 14:27 05/11/23 13:23 95 Room Air 05/11/23 13:00 05/11/23 12:30 05/11/23 12:00 05/11/23 11:30 05/11/23 11:00 05/11/23 10:30 05/11/23 10:00 05/11/23 09:32 05/11/23 09:25 05/11/23 08:00 Room Air 05/11/23 07:56 96 Room Air 05/11/23 07:46 Laboratory Results reviewed cbc, reviewed prp PG Care Time/CCT Total # of Minutes Spent Total Time Spent with Patient: Total time spent is greater than 50% in coordination of care (as documented) at patient's floor/unit and/or counseling patient: Coding Level of Care Code 11248 SUB INP/OBS CARE 2/35MIN Diagnoses Diabetic infection of left foot E11.628; L08.9 Peripheral arterial disease I73.9 Anemia D64.9 ESRD (end stage renal disease) on dialysis N18.6; Z99.2 DM II (diabetes mellitus, type II), controlled E11.9 CHF (congestive heart failure) I50.9 UTI (urinary tract infection) N39.0
[2023-05-11] MEDS: MELATONIN 3 MG TAB PO SCH (19:56)
[2023-05-11] MEDS: lisinopril 40 MG TAB PO SCH (19:56)
[2023-05-11] MEDS: ISOSORBIDE MONO EXTENDED REL 30 MG TABCR PO SCH (19:57)
[2023-05-11] MEDS: ATORVASTATIN 40 MG TAB PO SCH (19:58)
[2023-05-11] MEDS: HYDROmorphone INJ 0.5 MG/0.5 ML SYR IV PRN (22:02)
[2023-05-12] MEDS: LEVOTHYROXINE SODIUM 125 MCG TABLET PO SCH (05:16)
--- NOTE | 2023-05-12 07:53 | Nephrology Progress Note ---
Date of Service May 12, 2023 Assessment & Plan (1) ESRD (end stage renal disease) on dialysis: Plan: * Volume status is acceptable. Awaiting am labs today * Will plan next HD for following surgery * Outpatient HD Rx: [facility] - MWF, 3 hr, F-180NR, Qb 400/Qd 500, 2K 2Ca, EDW 57 kg * Monitor PRP (2) Osteomyelitis: Plan: * On empiric IV Cefepime * Patient reports that she will undergo L BKA Tuesday morning. Await further input from Orthopedic Surgery * On Lyrica 25 mg po BID to help alleviate pain (3) HTN (hypertension): Plan: * Improved * Continue Metoprolol, Amlodipine, Lisinopril, Clonidine (4) Anemia: Plan: * s/p 1 unit PRBC 05/08/23 * Will provide AUGIE w/ HD but recommend transfusion for Hgb < or = 7.0 Admission and Anticipated Discharge Date Admission Date: May 06, 2023 Subjective Mrs. Hudson was evaluated in her hospital room this morning. She has persistent L foot discomfort Review of Systems Constitutional: no fever Eyes: no problem reported Ear, Nose, Mouth, Throat: no problem reported Respiratory: no cough and no dyspnea Cardiovascular: no chest pain Gastrointestinal: + nausea; no vomiting and no diarrhea/lo ose stools Physical Exam Constitutional: + ill appearing Eyes: PERRL, conjunctivae normal, anicteric sclerae ENMT: external ear and nose normal, oropharynx normal Neck: trachea midline, no thyromegaly Respiratory: normal respiratory effort, lungs clear to auscultation Cardiovascular: RRR, no murmur, no edema Extremities: + AV fistula (R BC AVF +bruit) Gastrointestinal (Abdomen): normal bowel sounds, soft, nontender, no hepatosplenomegaly Results & Data Vital Signs (Past 12 Hours) Vital Signs Temp Pulse Pulse Resp BP Pulse Ox O2 Del Method 05/12/23 02:28 36.9 C 63 16 141/67 H 95 Room Air 05/11/23 23:38 66 05/11/23 23:37 65 05/11/23 22:38 36.8 C 67 16 152/64 H 96 Room Air Laboratory Results Laboratory Results - last 24 hr 05/11/23 13:16 POC Glucose 109 H Laboratory Results - last 24 hr 05/11/23 05/12/23 13:16 08:09 WBC 8.45 RBC 2.90 L Hgb 9.2 L Hct 29.0 L MCV 100.0 MCH 31.7 MCHC 31.7 L RDW Std Deviation 59.0 H RDW Coeff of Evette 16.5 H Plt Count 202 MPV 10.4 POC Glucose 109 H PG Care Time/CCT Total # of Minutes Spent Total Time Spent with Patient: Total time spent is greater than 50% in coordination of care (as documented) at patient's floor/unit and/or counseling patient: Coding Level of Care Code 63345 SUB INP/OBS CARE 3/50MIN Diagnoses ESRD (end stage renal disease) on dialysis N18.6; Z99.2 Osteomyelitis M86.9 HTN (hypertension) I10 Anemia D64.9
[2023-05-12 08:47] LABS: Hemoglobin 9.2 g/dl (12.0-16.0); Mean Corpuscular Hemoglobin 31.7 pg (25.0-34.0); Mean Corpuscular Hgb Conc 31.7 g/dL (32.0-36.0); Mean Platelet Volume 10.4 fL (9.4-12.4); Platelet Count 202 K/uL (130-400); RDW Coefficient of Variation 16.5 % (11.5-14.5); White Blood Count 8.45 K/ul (4.8-10.8)
[2023-05-12] MEDS: SENNA 8.6 MG TAB PO SCH ×2 (10:03→20:54)
[2023-05-12] MEDS: amLODIPine BESYLATE 5 MG TAB PO SCH (10:03)
[2023-05-12] MEDS: allopurinoL 100 MG TAB PO SCH (10:03)
[2023-05-12] MEDS: FUROSEMIDE 40 MG TAB PO SCH (10:03)
[2023-05-12] MEDS: METOPROLOL TARTRATE 50 MG TAB PO SCH ×2 (10:03→20:54)
[2023-05-12] MEDS: ACETAMINOPHEN 500 MG TAB PO SCH ×3 (10:04→20:53)
[2023-05-12] MEDS: ASPIRIN 81 MG CHEW PO SCH (10:04)
[2023-05-12] MEDS: cloNIDine HCL 0.1 MG TAB PO SCH (10:05)
[2023-05-12] MEDS: PANTOprazole 40 MG TAB PO SCH (10:06)
[2023-05-12] MEDS: SEVELAMER HCL 800 MG TABLET PO SCH ×3 (10:06→15:39)
[2023-05-12] MEDS: EZETIMIBE 10 MG TAB PO SCH (10:06)
[2023-05-12 10:13] LABS: BUN Creatinine Ratio 7.4 (10-20); Creatinine Clr Calc Pharmacy 18.1 ml/min; Est GFR (African American) 22.4 ml/min; Est GFR (Non-African American) 19.3 ml/min; Potassium 3.9 mmol/L (3.5-5.1)
[2023-05-12] MEDS: PREGABALIN 25 MG CAP PO SCH ×2 (10:15→20:59)
[2023-05-12] MEDS: oxyCODONE HCL IR 5 MG TAB (IMMEDIATE RELEASE) PO PRN (10:15)
[2023-05-12] MEDS: HYDROmorphone INJ 0.5 MG/0.5 ML SYR IV PRN ×3 (12:25→23:43)
[2023-05-12] MEDS: CEFEPIME 1,000 MG in SYRINGE 0 ML IV SCH (15:38)
--- NOTE | 2023-05-12 18:53 | Hospitalist Progress Note ---
Date of Service May 12, 2023 Assessment & Plan (1) Diabetic infection of left foot: Plan: Malodorous left foot infection; sent in while patient was at dialysis on 05/[address] Dias on 03/15 with partial foot amputation Wound culture Proteus and Klebsiella sensitive to Cefepime MRI left ankle ordered concerning for osteomyelitis Patient has been taking vancomycin on dialysis days for the past 5 weeks to cover for osteomyelitis Vancomycin + cefepime increased pain control, Phantom/ neuropathic pain improved with lyrica Pain appears controlled on 05/12 Dr. Richardson to bookcase for May 13. (2) Peripheral arterial disease: Plan: s/p endovascular intervention 04/04. Dr. Campbell saw the patient review of arterial Dopplers suggest prior stents are patent with mild to moderate SFA restenosis arterial perfusion seems adequate to heal surgical wounds after plan BKA per his recommendations. Clopidogrel can be stopped prior to surgery and resume when safe from a postsurgical standpoint (3) Anemia: Plan: anemia of chronic renal disease, plus influenced by infection B12, folate, iron studies, retic Suspect secondary to ESRD and will defer management for nephrology regarding EPO injections (4) ESRD (end stage renal disease) on dialysis: Plan: Consult nephrology for ongoing dialysis management Restart on her usual anti-hypertensives hopeful hyponatremia will be improved on dialysis (5) DM II (diabetes mellitus, type II), controlled: Plan: HbA1C not accurate in setting of ESRD on dialysis Patient is not currently on any diabetic medications at home With current glucose measurements this appears to be a historical rather than current diagnosis therefore BSG ACHS and insulin discontinued (6) CHF (congestive heart failure): Plan: HFpEF last echo 04/04 with preservef systolic function Fluid management with dialysis (7) UTI (urinary tract infection): Plan: Ruled out Plan VTE Prophylaxis - heparin 5000 units SQ BID (on hold pending stability in Hgb) Diet - dialysis renal Disposition - continued admission pending BKA on med/tele Admission and Anticipated Discharge Date Admission Date: May 06, 2023 Subjective Patient reports pain appears to be controlled. Review of Systems Review of Systems: All systems reviewed & are unremarkable except as noted in HPI & below Physical Exam Physical Exam: Patient improved phantom pain now to her transmetatarsal area of her left foot. No chest pain or pressure lungs are clear but diminished at the bases Card exam is regular Results & Data Results & Data Vital Signs (Past 12 Hours) Vital Signs Temp Pulse Pulse Resp BP Pulse Ox O2 Del Method 05/12/23 16:15 36.9 C 68 16 141/67 H 96 Room Air 05/12/23 11:52 36.9 C 65 16 94/50 L 97 Room Air 05/12/23 07:55 36.8 C 65 16 110/61 93 Room Air PG Care Time/CCT Total # of Minutes Spent Total Time Spent with Patient: Total time spent is greater than 50% in coordination of care (as documented) at patient's floor/unit and/or counseling patient: Coding Level of Care Code 18077 SUB INP/OBS CARE 2/35MIN Diagnoses Diabetic infection of left foot E11.628; L08.9 Peripheral arterial disease I73.9 Anemia D64.9 ESRD (end stage renal disease) on dialysis N18.6; Z99.2 DM II (diabetes mellitus, type II), controlled E11.9 CHF (congestive heart failure) I50.9 UTI (urinary tract infection) N39.0
[2023-05-12] MEDS: MELATONIN 3 MG TAB PO SCH (20:54)
[2023-05-12] MEDS: ISOSORBIDE MONO EXTENDED REL 30 MG TABCR PO SCH (20:55)
[2023-05-12] MEDS: ATORVASTATIN 40 MG TAB PO SCH (20:55)
[2023-05-12] MEDS: lisinopril 40 MG TAB PO SCH (20:55)
[2023-05-13] MEDS: HYDROmorphone INJ 0.5 MG/0.5 ML SYR IV PRN ×2 (04:38→12:25)
[2023-05-13 05:19] LABS: Hematocrit (blood only) 28.5 % (37.0-47.0); Mean Corpuscular Hemoglobin 31.8 pg (25.0-34.0); Mean Corpuscular Hgb Conc 31.6 g/dL (32.0-36.0); Mean Corpuscular Volume 100.7 fL (80.0-100.0); Mean Platelet Volume 10.6 fL (9.4-12.4); Platelet Count 223 K/uL (130-400); RDW Coefficient of Variation 16.9 % (11.5-14.5); RDW Standard Deviation 60.9 fL (36.4-46.3); Red Blood Count 2.83 M/uL (4.20-5.40); White Blood Count 8.52 K/ul (4.8-10.8)
[2023-05-13 05:35] LABS: BUN Creatinine Ratio 7.5 (10-20); Calcium 7.9 mg/dl (8.6-10.3); Creatinine Clr Calc Pharmacy 13.5 ml/min; Est GFR (African American) 15.6 ml/min; Est GFR (Non-African American) 13.5 ml/min; Phosphorus 2.8 mg/dl (2.5-4.9); Potassium 4.1 mmol/L (3.5-5.1)
[2023-05-13] MEDS: LEVOTHYROXINE SODIUM 125 MCG TABLET PO SCH (05:36)
[2023-05-13] MEDS ORDERED: ROPIVACAINE 0.5% 5 MG/ML 30 ML VIAL ONE (06:30)
[2023-05-13] MEDS ORDERED: EPOETIN ALFA 10,000 UNITS/ML VIAL IV ONE (07:00)
[2023-05-13] MEDS ORDERED: SODIUM CHLORIDE 0.9% 1,000 ML IV PRN (07:00)
[2023-05-13] MEDS ORDERED: MIDAZOLAM HCL 1 MG/ML 2ML VIAL ONE (07:12)
[2023-05-13] MEDS ORDERED: fentaNYL citrate PF 100 MCG/2 ML VIAL ONE (07:12)
[2023-05-13] MEDS ORDERED: LIDOCAINE 2% 2 ML VIAL/AMP(20MG/ML) INFIL ONE (07:13)
[2023-05-13] MEDS ORDERED: DEXAMETHASONE SOD INJ 4 MG/ML VIAL ONE (07:13)
[2023-05-13] MEDS ORDERED: ONDANSETRON INJ 2 MG/ML 2 ML VIAL ONE (07:13)
[2023-05-13] MEDS ORDERED: PROPOFOL IV EMULSION 10 MG/ML 20 ML VIAL IV ONE (07:13)
--- NOTE | 2023-05-13 07:16 | History & Physical Bridge Note ---
Date of Service May 13, 2023 History & Physical Bridge Note I have examined the patient, reviewed the History & Physical and in the interval since the performance of the History & Physical I have noted the following changes of clinical significance: no changes noted
[2023-05-13] MEDS ORDERED: ceFAZolin 330 MG/ML 1 GM VIAL ONE (07:22)
[2023-05-13] MEDS ORDERED: BUPIVACAINE 0.25% PF 30 ML VIAL ONE (07:24)
--- NOTE | 2023-05-13 07:29 | Anesthesiology Consultation ---
Date of Service May 13, 2023 Assessment & Plan Chart Review Chart Review: Acceptable Risk for Surgery and Patient NOT seen in Pre Admission Testing Consults Requested none History Surgery Operation Date: 05/13/23 07:30 Proposed Procedures p Left Below Knee Amputation - Vincent Richardson DO Height/Weight Height: 5 ft 2 in Weight: 57.3 kg Allergies Allergy/AdvReac Type Severity Reaction Status Date / Time morphine Allergy Severe Hallucinati Verified 05/06/23 16:01 ng codeine Allergy Intermediate Redness of Verified 05/06/23 16:01 Skin prednisone Allergy Intermediate Itching Verified 05/06/23 16:01 Medications Home Medications Medication Instructions Recorded Confirmed Last Taken albuterol sulfate 90 mcg/actuation 1 puff inhalation QID PRN bad cough 11/12/22 05/06/23 Unknown aerosol inhaler allopurinol 100 mg tablet 100 mg PO DAILY 11/12/22 05/06/23 05/06/23 ascorbic acid (vitamin C) 500 mg 500 mg PO DAILY 11/12/22 05/06/23 05/06/23 capsule aspirin 81 mg chewable tablet 81 mg PO DAILY 11/12/22 05/06/23 05/06/23 atorvastatin 40 mg tablet (Lipitor) 40 mg PO HS 11/12/22 05/06/23 05/05/23 cholecalciferol (vitamin D3) 50 50 mcg PO DAILY 11/12/22 05/06/23 05/06/23 mcg (2,000 unit) tablet clonidine HCl 0.1 mg tablet 0.1 mg PO DAILY 11/12/22 05/06/23 05/06/23 clopidogrel 75 mg tablet 75 mg PO DAILY 11/12/22 05/06/23 05/06/23 denosumab 60 mg/mL subcutaneous 60 mg subcut Q6M 11/12/22 05/06/23 7 Months Ago syringe (Prolia) ~05/27/22 docusate sodium 100 mg capsule 100 mg PO DAILY PRN Constipation 11/12/22 05/06/23 Unknown (Colace) esomeprazole magnesium 40 mg 40 mg PO DAILY 11/12/22 05/06/23 05/06/23 capsule,delayed release (Nexium) ezetimibe 10 mg tablet 10 mg PO DAILY 11/12/22 05/06/23 05/06/23 furosemide 40 mg tablet (Lasix) 40 mg PO DAILY 11/12/22 05/06/23 05/06/23 isosorbide mononitrate 30 mg 30 mg PO HS 11/12/22 05/06/23 05/05/23 tablet,extended release 24 hr levothyroxine 125 mcg tablet 125 mcg PO QAM 11/12/22 05/06/23 05/06/23 lisinopril 40 mg tablet (Zestril) 40 mg PO DAILY 11/12/22 05/06/23 05/06/23 loratadine 10 mg tablet 10 mg PO DAILY PRN allergies 11/12/22 05/06/23 12/25/22 melatonin 10 mg capsule 10 mg PO HS 11/12/22 05/06/23 05/05/23 metoprolol tartrate 50 mg tablet See Rx Instructions .Route .COMPLEX 11/12/22 05/06/23 05/06/23 08:00 nitroglycerin 0.4 mg sublingual 0.4 mg sublingual DIRECTED PRN 11/12/22 05/06/23 Unknown tablet Chest Pain sevelamer carbonate 800 mg tablet 800 mg PO TIDM 11/12/22 05/06/23 05/06/23 08:00 vit B,C-folic ac 800 mcg-zinc 12.5 1 tab PO DAILY 11/12/22 05/06/23 05/06/23 mg-selen-D3 2,000 unit-vit E tablet (RenaPlex-D) acetaminophen 325 mg tablet 650 mg (2 x 325 mg) PO Q4H PRN 01/05/23 05/06/23 Unknown fever or pain #0 tabs sennosides 8.6 mg tablet (Senokot) 17.2 mg (2 x 8.6 mg) PO BID #0 tabs 01/05/23 05/06/23 05/06/23 08:00 calcium carbonate 500 mg-vitamin 1 tab PO BID 03/14/23 05/06/23 05/06/23 08:00 D3 10 mcg (400 unit) tablet (Oyster Shell Calcium-Vitamin D3) amlodipine 10 mg tablet 10 mg PO DAILY #30 tabs 04/07/23 05/06/23 05/06/23 calcitriol 0.25 mcg capsule 0.25 mcg PO QAM #30 caps 04/07/23 05/06/23 05/06/23 oxycodone 5 mg tablet 5 mg PO Q4H PRN Pain #15 tabs 04/07/23 05/06/23 Unknown Active Medications Generic Name Dose Route Start Last Admin Trade Name Miquel PRN Reason Stop Dose Admin Acetaminophen 1,000 mg 05/09/23 21:00 05/12/23 20:53 Acetaminophen 500 Mg Tab PO 06/08/23 20:59 1,000 mg TID SHARIFA Administration Allopurinol 100 mg 05/07/23 09:00 05/12/23 10:03 Allopurinol 100 Mg Tab PO 06/06/23 08:59 100 mg DAILY SHARIFA Administration Amlodipine Besylate 10 mg 05/07/23 09:00 05/12/23 10:03 Amlodipine Besylate 5 Mg Tab PO 06/06/23 08:59 10 mg DAILY SHARIFA Administration Aspirin 81 mg 05/07/23 09:00 05/12/23 10:04 Aspirin 81 Mg Chew PO 06/06/23 08:59 81 mg DAILY SHARIFA Administration Atorvastatin Calcium 40 mg 05/06/23 21:41 05/12/23 20:55 Atorvastatin 40 Mg Tab PO 06/05/23 21:40 40 mg HS SHARIFA Administration Clonidine HCl 0.1 mg 05/07/23 09:00 05/12/23 10:05 Clonidine Hcl 0.1 Mg Tab PO 06/06/23 08:59 0.1 mg DAILY SHARIFA Administration Docusate Sodium 100 mg 05/06/23 21:41 05/10/23 08:35 Docusate Sodium 100 Mg Cap PO 06/05/23 21:40 100 mg DAILY PRN Administration Constipation Ezetimibe 10 mg 05/07/23 09:00 05/12/23 10:06 Ezetimibe 10 Mg Tab PO 06/06/23 08:59 10 mg DAILY SHARIFA Administration Furosemide 40 mg 05/07/23 09:00 05/12/23 10:03 Furosemide 40 Mg Tab PO 06/06/23 08:59 40 mg DAILY SHARIFA Administration Heparin Sodium (Porcine) 5,000 units 05/06/23 22:00 05/07/23 21:24 Heparin Sod 5,000 Unit/0.5 Ml Vial SQ 06/05/23 21:59 Not Given Q12 SHARIFA Hydromorphone HCl 0.5 mg 05/06/23 20:39 05/13/23 04:38 Hydromorphone Inj 0.5 Mg/0.5 Ml Syr IV 05/20/23 20:38 0.5 mg Q4H PRN Administration Moderate Pain (4,5,6) on NRS Cefepime HCl 1,000 mg/ Syringe 10 mls @ 5 mls/min 05/07/23 16:00 05/12/23 15:38 IV 05/14/23 15:59 5 mls/min Q24H SHARIFA Administration Protocol Isosorbide Mononitrate 30 mg 05/06/23 21:41 05/12/23 20:55 Isosorbide [place] Extended Rel 30 Mg Tabcr PO 06/05/23 21:40 30 mg HS SHARIFA Administration Levothyroxine Sodium 125 mcg 05/07/23 06:30 05/13/23 05:36 Levothyroxine Sodium 125 Mcg Tablet PO 06/06/23 06:29 125 mcg DAILYBB SHARIFA Administration Lisinopril 40 mg 05/09/23 21:00 05/12/23 20:55 Lisinopril 40 Mg Tab PO 06/08/23 20:59 40 mg HS SHARIFA Administration Melatonin 9 mg 05/07/23 21:00 05/12/23 20:54 Melatonin 3 Mg Tab PO 06/06/23 20:59 9 mg HS SHARIFA Administration Metoprolol Tartrate 50 mg 05/07/23 09:00 05/12/23 10:03 Metoprolol Tartrate 50 Mg Tab PO 06/06/23 08:59 50 mg QAM SHARIFA Administration Metoprolol Tartrate 100 mg 05/06/23 22:00 05/12/23 20:54 Metoprolol Tartrate 50 Mg Tab PO 06/05/23 21:59 100 mg HS SHARIFA Administration Oxycodone HCl 10 mg 05/09/23 19:51 05/12/23 10:15 Oxycodone Hcl Ir 5 Mg Tab (Immediate Release) PO 05/23/23 19:50 10 mg Q6H PRN Administration Moderate Pain 4-6/10 Pantoprazole Sodium 40 mg 05/07/23 09:00 05/12/23 10:06 Pantoprazole 40 Mg Tab PO 06/06/23 08:59 40 mg DAILY SHARIFA Administration Pregabalin 25 mg 05/10/23 21:00 05/12/23 20:59 Pregabalin 25 Mg Cap PO 06/09/23 20:59 25 mg BID SHARIFA Administration Sennosides 17.2 mg 05/06/23 21:41 05/12/23 20:54 Senna 8.6 Mg Tab PO 06/05/23 21:40 17.2 mg BID SHARIFA Administration Sevelamer HCl 800 mg 05/07/23 08:00 05/12/23 15:39 Sevelamer Hcl 800 Mg Tablet PO 06/06/23 07:59 800 mg TIDM SHARIFA Administration NPO Date Last Intake of Fluids: 05/12/23 Time Last Intake of Fluids: 17:30 Date Last Intake of Solids: 05/12/23 Time Last Intake of Solids: 17:30 Past Medical History Medical History Anemia due to chronic kidney disease Depression Open wound of left foot PAD (peripheral artery disease) Encounter for pre-operative examination ESRD (end stage renal disease) on dialysis HD . Follows with Dr. Mike Espinal CHF (congestive heart failure) Osteomyelitis of left foot Hypothyroidism Anemia Tobacco abuse Hyperlipidemia HTN (hypertension) CAD (coronary artery disease) DM II (diabetes mellitus, type II), controlled Past Surgical History Surgical History S/P drug eluting coronary stent placement Social History Smoking Status: Current every day smoker tobacco type: cigarettes Smoking cigarettes per day: 5 Do You Dip or Chew Tobacco: No Hx Alcohol Use: No Hx Substance Use: No substance use type: does not use Review of Systems Constitutional: no fever Eyes: no problem reported Ear, Nose, Mouth, Throat: no problem reported Respiratory: no cough and no dyspnea Cardiovascular: no chest pain Gastrointestinal: + nausea; no vomiting and no diarrhea/loose stools Physical Exam Vital Signs Last Vital Signs Temp 36.8 C 05/13/23 07:11 Pulse 69 05/13/23 07:11 Resp 18 05/13/23 07:11 BP 169/58 H 05/13/23 07:11 Pulse Ox 95 05/13/23 07:11 O2 Del Method Room Air 05/13/23 07:11 Constitutional WD/WN, vitals as above well developed, + ill appearing, cooperative and comfortable Eyes PERRL, conjunctivae normal, anicteric sclerae normal visual todd by confrontation and + anicteric sclerae ENMT external ear and nose normal, oropharynx normal Mouth: oral mucous membranes not dry Neck trachea midline, no thyromegaly normal visual inspection and trachea midline Respiratory normal respiratory effort, lungs clear to auscultation normal respiratory effort Cardiovascular RRR, no murmur, no edema Rate/Rhythm: regular rate and regular rhythm Heart Sounds: no murmur Vessels: femoral pulses present and radial pulses present; + posterior tibial pulses abnormal, + dorsalis pedis pulses abnormal and + popliteal pulses abnormal Extremities: + AV fistula (R BC AVF +bruit); no edema Gastrointestinal (Abdomen) normal bowel sounds, soft, nontender, no hepatosplenomegaly Percussion/Palpation: abdomen soft; abdomen nontender Musculoskeletal Extremities: + amputation noted (Left transmetatarsal amputation) Skin + ulcer; no rashes Neurologic PERRL, EOMI, accommodation nl, no face palsy, no dysarthria moves all extremities (Decreased epicritic sensation) Psychiatric A+Ox3, euthymic affect Orientation: alert and oriented x 3 Lymphatic no cervical or axillary lymphadenopathy Testing Laboratory Results 05/13/23 04:47 05/13/23 04:47 PT 11.5 Seconds (9.0-12.0) 05/06/23 14:33 INR 1.1 (0.9-1.1) 05/06/23 14:33 Hemoglobin A1c 4.7 % (4.5-5.6) 05/07/23 05:52 Urine Color Dark Yellow 05/06/23 16:20 Urine Appearance Turbid (Clear) A 05/06/23 16:20 Urine pH >= 9.0 (4.5-7.5) H 05/06/23 16:20 Ur Specific [place] 1.015 (1.000-1.030) 05/06/23 16:20 Urine Protein 3+ (Negative) H 05/06/23 16:20 Urine Glucose (UA) Negative (Negative) 05/06/23 16:20 Urine Ketones Negative (Negative) 05/06/23 16:20 Urine Nitrite Negative (Negative) 05/06/23 16:20 Ur Leukocyte Esterase 3+ (Negative) H 05/06/23 16:20 Urine WBC (Auto) >30 /hpf (0-5) H 05/06/23 16:20 Urine RBC (Auto) 0-4 /hpf (0-4) 05/06/23 16:20 U Hyaline Cast (Auto) 1-5 /lpf (0-5) 05/06/23 16:20 U Epithel Cells (Auto) >30 /lpf (0-5) H 05/06/23 16:20 Urine Bacteria (Auto) 1+ (Negative) H 05/06/23 16:20 Blood Type A Positive 05/12/23 16:34 Antibody Screen NEGATIVE 05/12/23 16:34 05/06/23 14:33 Aerobic Blood Culture - Final Blood No growth in Aerobic bottle after 5 days. Anaerobic Blood Culture - Final No growth in Anaerobic bottle after 5 days. 05/06/23 14:33 Aerobic Blood Culture - Final Blood No growth in Aerobic bottle after 5 days. Anaerobic Blood Culture - Final No growth in Anaerobic bottle after 5 days. 05/06/23 14:33 Gram Stain - Final Foot,Left Wound Culture - Final Proteus vulgaris Klebsiella oxytoca 05/06/23 16:20 Urine Culture - Final Urine,Clean Catch More than three types of organisms present, all high counts. Repeat collection recommended. No further identifications or sensitivities to follow. 05/13/23 07:17 POC Glucose 76
[2023-05-13] MEDS ORDERED: GLYCOPYRROLATE 0.2 MG/ML VIAL ONE (08:05)
[2023-05-13] MEDS ORDERED: ePHEDrine sulfate 50 MG/5 ML SYR ONE (08:24)
--- NOTE | 2023-05-13 08:29 | Nephrology Progress Note ---
Date of Service May 13, 2023 Assessment & Plan (1) ESRD (end stage renal disease) on dialysis: Plan: * HD today. Orders placed in EMR and HD RN notified. * Will need to adjust EDW down due to BKA * Outpatient HD Rx: [facility] - MAGDALENAF, 3 hr, F-180NR, Qb 400/Qd 500, 2K 2Ca, EDW 57 kg * Monitor PRP (2) Osteomyelitis: Plan: * On empiric IV Cefepime * s/p L BKA 05/13/[address] Richardson * On Lyrica 25 mg po BID to help alleviate pain (3) HTN (hypertension): Plan: * Improved * Continue Metoprolol, Amlodipine, Lisinopril, Clonidine (4) Anemia: Plan: * s/p 1 unit PRBC 05/08/23 * Will provide AUGIE w/ HD but recommend transfusion for Hgb < or = 7.0 Admission and Anticipated Discharge Date Admission Date: May 06, 2023 Subjective Mrs. Hudson was evaluated in her hospital room this afternoon. She had just returned from [facility]. Mrs. Hudson awoke to voice. She indicated that her pain was controlled Review of Systems Constitutional: no fever Eyes: no problem reported Ear, Nose, Mouth, Throat: no problem reported Respiratory: no cough and no dyspnea Cardiovascular: no chest pain Gastrointestinal: + nausea; no vomiting and no diarrhea/lo ose stools Physical Exam Constitutional: + ill appearing Eyes: PERRL, conjunctivae normal, anicteric sclerae ENMT: external ear and nose normal, oropharynx normal Neck: trachea midline, no thyromegaly Respiratory: normal respiratory effort, lungs clear to auscultation Cardiovascular: RRR, no murmur, no edema Extremities: + AV fistula (R BC AVF +bruit) Gastrointestinal (Abdomen): normal bowel sounds, soft, nontender, no hepatosplenomegaly Results & Data Vital Signs (Past 12 Hours) Vital Signs Temp Pulse Pulse Pulse Resp BP Pulse Ox 05/13/23 07:30 61 05/13/23 07:11 36.8 C 69 69 18 169/58 H 95 05/13/23 03:24 36.4 C L 58 L 16 129/81 92 05/12/23 23:28 36.7 C 62 18 132/74 97 05/12/23 21:58 62 O2 Del Method 12/01/23 07:30 05/13/23 07:11 Room Air 05/13/23 03:24 Room Air 05/12/23 23:28 Room Air 05/12/23 21:58 Laboratory Results Laboratory Results - last 24 hr 05/12/23 05/12/23 05/12/23 08:09 08:21 16:34 WBC 8.45 RBC 2.90 L Hgb 9.2 L Hct 29.0 L MCV 100.0 MCH 31.7 MCHC 31.7 L RDW Std Deviation 59.0 H RDW Coeff of Evette 16.5 H Plt Count 202 MPV 10.4 Sodium 135 L Potassium 3.9 Chloride 103 Carbon Dioxide 27 Anion Gap 5 BUN 19 Creatinine 2.58 H D Est Cr Clr Drug Dosing 18.1 Est GFR ( Amer) 22.4 Est GFR (Non-Af Amer) 19.3 BUN/Creatinine Ratio 7.4 L Glucose 88 POC Glucose Calcium 8.0 L Phosphorus 2.2 L Random Vancomycin Blood Type A Positive Antibody Screen NEGATIVE 05/13/23 05/13/23 04:47 07:17 WBC 8.52 RBC 2.83 L Hgb 9.0 L Hct 28.5 L MCV 100.7 H MCH 31.8 MCHC 31.6 L RDW Std Deviation 60.9 H RDW Coeff of Evette 16.9 H Plt Count 223 MPV 10.6 Sodium 132 L Potassium 4.1 Chloride 101 Carbon Dioxide 24 Anion Gap 7 BUN 26 H Creatinine 3.47 H D Est Cr Clr Drug Dosing 13.5 Est GFR ( Amer) 15.6 Est GFR (Non-Af Amer) 13.5 BUN/Creatinine Ratio 7.5 L Glucose 81 POC Glucose 76 Calcium 7.9 L Phosphorus 2.8 Random Vancomycin Pending Blood Type Antibody Screen PG Care Time/CCT Total # of Minutes Spent Total Time Spent with Patient: Total time spent is greater than 50% in coordination of care (as documented) at patient's floor/unit and/or counseling patient: Coding Level of Care Code 56923 SUB INP/OBS CARE 3/50MIN Diagnoses ESRD (end stage renal disease) on dialysis N18.6; Z99.2 Osteomyelitis M86.9 HTN (hypertension) I10 Anemia D64.9
[2023-05-13] MEDS ORDERED: ONDANSETRON INJ 2 MG/ML 2 ML VIAL IV PRN (10:32)
[2023-05-13] MEDS ORDERED: ATROPINE SULFATE 0.1 MG/ML 10ML SYR IV PRN (10:32)
[2023-05-13] MEDS ORDERED: ePHEDrine sulfate 50 MG/ML AMP IV PRN (10:32)
[2023-05-13] MEDS ORDERED: fentaNYL citrate PF 100 MCG/2 ML VIAL IV PRN (10:32)
--- NOTE | 2023-05-13 10:57 | Operative Report ---
Post Operative Report Pre & Post Diagnosis Operation Date: 05/13/23 07:30 Pre-Op Diagnosis: Chronic osteomyelitis of left foot with draining sinus, gangrene left foot, peripheral vascular disease, diabetes mellitus type 2 with polyneuropathy, end- stage renal disease Post-Op Diagnosis: Chronic osteomyelitis of left foot with draining sinus, gangrene left foot, peripheral vascular disease, diabetes mellitus type 2 with polyneuropathy, end- stage renal disease I identified the patient and participated in the time-out.: Yes Procedure Operation Date: 05/13/23 07:30 Actual Procedures p Left Below Knee Amputation(Left) - Vincent Richardson DO Surgeon Vincent Richardson DO Coordinate Measuring Machine Operator None Estimated Blood Loss 50 Findings Consistent with Post-Op Diagnosis Specimens Residual left lower extremity Drains 10 Vincentian Hemovac drain x1 Anesthesia Type General Regional Complications none Disposition Accompanied Patient To Recovery: No Indications This is a 62-year-old female with chronic osteomyelitis with draining sinus left foot, gangrene left foot, peripheral vascular disease, end-stage renal disease, diabetes mellitus type 2 with polyneuropathy and failed limb salvage left lower extremity. Patient attempted and failed limb salvage for approximately 1 year. Patient was scheduled for left below-knee amputation after failure of limb salvage. Description of Procedure All potential risks, benefits, complications, alternatives, rehab, need for further surgery, potential for incomplete relief of symptoms, neurovascular injury, DVT, PE, , stiffness, weakness, loss of function, persistent pain, swelling, numbness, bone fracture, phantom limb pain and wound complications were discussed with the patient and family. The patient and family decided to proceed with the procedure as indicated. OPERATION AND FINDINGS: The patient had a regional anesthetic administered by the anesthesia department and was taken to the operative suite and placed supine on the Operating Room table. After we reviewed the consent and identification of proper operative site, appropriate anesthesia care was administered and the left lower extremity had tourniquet placed high on the thigh over cast padding. The left lower extremity was then sterilely prepped and draped in the usual fashion, elevated, and exsanguinated in an Esmarch bandage. Tourniquet inflated to 275 mmHg. Next after appropriate level of resection of the bone was determined and planned skin resection was extended approximately 1 cm distal to the level of bone resection of the tibia, the 10 blade scalpel was then used to make an incision anteriorly traversing the entirety of the lower extremity and then a long posterior flap was incised. Next the electrocautery was used to achieve hemostasis and then anterior compartments were sacrificed at the level of the skin resection and hemostat was placed posterior to the tibia and appropriate retractors were placed in the wound. The skin was retracted proximally, approximately 1 to 1.5 cm. Resection of the lower extremity of the tibia was performed with a sagittal saw and then oblique double bevel cut was made anteri naida and then sagittal saw was used to plane down the tibia to appropriate smoothed edges. A rasp was then was used to complete the process of the bony resection. Next, the posterior compartment was carefully dissected with Metzenbaum scissors to locate the major neurovascular bundles. These were tied with 2-0 silk ties which were doubled, tied and cut, and then distally they were singularly tied and cut followed by transection of the neurovascular bundles with electrocautery. Next careful bevel cut was made in the soft tissue of the posterior compartment including the gastroc-soleus to the point of the posterior aspect of the flap. The lower extremity was then passed off as specimen. Next, the surgical site was irrigated with pulsatile lavage, Ancef and sterile normal saline and further beveling of the soft tissues in the posterior compartment was performed until a stable flap closure was to be performed. Dog ears and soft tissue were excised using 10 blade scalpel and then the gastrocsoleus fascia was then used to trial the closure with an Allis clamp. It closed well without any significant soft tissue tension. After final irrigation with copious amounts of sterile normal saline, a 10 Vincentian single Hemovac drain was then placed in the wound exiting anteriorly and proximally. The gastrocsoleus fascia was then closed to the anterior fascia with interrupted #1 Vicryl sutures. After the deep soft tissues and fascia were closed with abundant muscular covering of the tibia, the dermis was closed using buried 2-0 Vicryl sutures. The skin was then closed using skin rafa. The tourniquet was released with normal hyperemic response returning to the residual lower limb. A sterile compressive dressing was applied consisting of Acticoat Flex, sterile 4 x 4's, cast padding overwrapped with an Wiliam wrap. Tourniquet was released. The patient was awakened and taken to recovery in stable condition. I attest to the content of the Intraoperative Record and any orders documented therein. Any exceptions are noted below.
--- NOTE | 2023-05-13 12:18 | Pharmacy Report ---
Pharmacy PK ABX Note - Date of Service May 13, 2023 - Assessment and Plan Assessment 62 year old F receiving vancomycin and cefepime for treatment of foot infection. Patient has hx of diabetes. Pertinent microbiologic data includes: left foot culture currently growing Proteus and Klebsiella. E. faecium from most recent foot culture, patient was on vancomycin 500 mg post-dialysis MWF. More extensive culture history can be reviewed in EMR. Typical dialysis schedule MWF. Patient s/p L BKA (POD0). Plan Vancomycin * Random level today 15.6 mcg/mL * Will redose 500 mg IV x 1 after hemodialysis today * Hemodialysis MWF - next random level on Tuesday prior to next likely HD Cefepime * 1 g IV q24h - appropriate for patient on HD Pharmacy will continue to follow and will adjust dose/frequency as necessary. Thank you. Pharmacy has transitioned to AUC monitoring for vancomycin. AUC/ELIUD is the preferred PK/PD target and is associated with decreased risk of nephrotoxicity compared to traditional trough targets.
[2023-05-13] MEDS: ACETAMINOPHEN 500 MG TAB PO SCH ×3 (12:26→22:19)
[2023-05-13] MEDS: EZETIMIBE 10 MG TAB PO SCH (12:26)
[2023-05-13] MEDS: SENNA 8.6 MG TAB PO SCH ×2 (12:26→22:16)
[2023-05-13] MEDS: PREGABALIN 25 MG CAP PO SCH ×2 (12:26→22:15)
[2023-05-13] MEDS: PANTOprazole 40 MG TAB PO SCH (12:27)
[2023-05-13] MEDS: allopurinoL 100 MG TAB PO SCH (12:27)
[2023-05-13] MEDS ORDERED: VANCOMYCIN HCL 500 MG in NSS 100mL IV ONE (16:00)
[2023-05-13] MEDS: SEVELAMER HCL 800 MG TABLET PO SCH ×3 (16:35→18:40)
[2023-05-13] MEDS: FUROSEMIDE 40 MG TAB PO SCH (16:36)
[2023-05-13] MEDS: amLODIPine BESYLATE 5 MG TAB PO SCH (16:37)
[2023-05-13] MEDS: METOPROLOL TARTRATE 50 MG TAB PO SCH ×2 (16:37→22:16)
[2023-05-13] MEDS: cloNIDine HCL 0.1 MG TAB PO SCH (16:46)
[2023-05-13] MEDS: ASPIRIN 81 MG CHEW PO SCH (16:46)
[2023-05-13] MEDS: CEFEPIME 1,000 MG in SYRINGE 0 ML IV SCH (16:46)
[2023-05-13] MEDS: ISOSORBIDE MONO EXTENDED REL 30 MG TABCR PO SCH (22:15)
[2023-05-13] MEDS: ATORVASTATIN 40 MG TAB PO SCH (22:16)
[2023-05-13] MEDS: lisinopril 40 MG TAB PO SCH (22:16)
[2023-05-13] MEDS: HEPARIN SOD 5,000 UNIT/0.5 ML VIAL SQ SCH (22:17)
[2023-05-13] MEDS: MELATONIN 3 MG TAB PO SCH (22:19)
--- NOTE | 2023-05-13 22:53 | Hospitalist Progress Note ---
Date of Service May 13, 2023 Assessment & Plan (1) Diabetic infection of left foot: Plan: Now s/p left BKA. by Dr. Richardson Patient has been taking vancomycin on dialysis days for the past 5 weeks to cover for osteomyelitis Vancomycin + cefepime increased pain control, Phantom/ neuropathic pain improved with lyrica (2) Peripheral arterial disease: Plan: s/p endovascular intervention 04/04. Dr. Campbell saw the patient review of arterial Dopplers suggest prior stents are patent with mild to moderate SFA restenosis arterial perfusion seems adequate to heal surgical wounds after plan BKA per his recommendations. Clopidogrel can be stopped prior to surgery and resume when safe from a postsurgical standpoint (3) Anemia: Plan: anemia of chronic renal disease, plus influenced by infection B12, folate, iron studies, retic Suspect secondary to ESRD and will defer management for nephrology regarding EPO injections (4) ESRD (end stage renal disease) on dialysis: Plan: Consult nephrology for ongoing dialysis management Restart on her usual anti-hypertensives hopeful hyponatremia will be improved on dialysis (5) DM II (diabetes mellitus, type II), controlled: Plan: HbA1C not accurate in setting of ESRD on dialysis Patient is not currently on any diabetic medications at home With current glucose measurements this appears to be a historical rather than current diagnosis therefore BSG ACHS and insulin discontinued (6) CHF (congestive heart failure): Plan: HFpEF last echo 04/04 with preservef systolic function Fluid management with dialysis (7) UTI (urinary tract infection): Plan: Ruled out Plan VTE Prophylaxis - heparin 5000 units SQ BID (on hold pending stability in Hgb) Diet - dialysis renal Disposition - continued admission pending BKA on med/tele Admission and Anticipated Discharge Date Admission Date: May 06, 2023 Subjective Patient is sad about losing her leg today. She has no new complaints. Review of Systems Review of Systems: All systems reviewed & are unremarkable except as noted in HPI & below Physical Exam Physical Exam: Patient improved phantom pain now to her transmetatarsal area of her left foot. No chest pain or pressure lungs are clear but diminished at the bases Card exam is regular Results & Data Results & Data Vital Signs (Past 12 Hours) Vital Signs Temp Pulse Pulse Pulse Resp BP BP 05/13/23 19:34 36.4 C L 62 18 113/62 05/13/23 15:55 36.7 C 78 142/59 H 05/13/23 15:30 70 105/45 L 05/13/23 15:00 70 111/47 L 05/13/23 14:30 66 89/45 L 05/13/23 14:00 67 95/46 L 05/13/23 13:30 66 100/43 L 05/13/23 13:00 63 97/46 L 05/13/23 12:38 36.5 C 64 Pulse Ox O2 Del Method 05/13/23 19:34 96 Room Air 05/13/23 15:55 05/13/23 15:30 05/13/23 15:00 05/13/23 14:30 05/13/23 14:00 05/13/23 13:30 05/13/23 13:00 05/13/23 12:38 PG Care Time/CCT Total # of Minutes Spent Total Time Spent with Patient: Total time spent is greater than 50% in coordination of care (as documented) at patient's floor/unit and/or counseling patient: Coding Level of Care Code 45101 SUB INP/OBS CARE 2/35MIN Diagnoses Diabetic infection of left foot E11.628; L08.9 Peripheral arterial disease I73.9 Anemia D64.9 ESRD (end stage renal disease) on dialysis N18.6; Z99.2 DM II (diabetes mellitus, type II), controlled E11.9 CHF (congestive heart failure) I50.9 UTI (urinary tract infection) N39.0
[2023-05-14] MEDS: HYDROmorphone INJ 0.5 MG/0.5 ML SYR IV PRN ×4 (02:16→22:23)
[2023-05-14] MEDS: LEVOTHYROXINE SODIUM 125 MCG TABLET PO SCH (04:52)
[2023-05-14] MEDS: oxyCODONE HCL IR 5 MG TAB (IMMEDIATE RELEASE) PO PRN ×3 (04:52→20:43)
[2023-05-14 05:41] LABS: Hematocrit (blood only) 23.2 % (37.0-47.0); Hemoglobin 7.4 g/dl (12.0-16.0); Mean Corpuscular Hemoglobin 31.8 pg (25.0-34.0); Mean Corpuscular Hgb Conc 31.9 g/dL (32.0-36.0); Mean Corpuscular Volume 99.6 fL (80.0-100.0); Platelet Count 203 K/uL (130-400); RDW Coefficient of Variation 17.7 % (11.5-14.5); RDW Standard Deviation 62.6 fL (36.4-46.3); Red Blood Count 2.33 M/uL (4.20-5.40); White Blood Count 7.49 K/ul (4.8-10.8)
[2023-05-14 06:04] LABS: BUN Creatinine Ratio 6.3 (10-20); Calcium 7.4 mg/dl (8.6-10.3); Creatinine Clr Calc Pharmacy 21.1 ml/min; Est GFR (Non-African American) 23.3 ml/min; Potassium 3.7 mmol/L (3.5-5.1)
[2023-05-14] MEDS: SENNA 8.6 MG TAB PO SCH ×2 (08:44→20:45)
[2023-05-14] MEDS: allopurinoL 100 MG TAB PO SCH (08:45)
[2023-05-14] MEDS: SEVELAMER HCL 800 MG TABLET PO SCH ×3 (08:45→16:56)
[2023-05-14] MEDS: METOPROLOL TARTRATE 50 MG TAB PO SCH ×2 (08:46→20:44)
[2023-05-14] MEDS: FUROSEMIDE 40 MG TAB PO SCH (08:46)
[2023-05-14] MEDS: amLODIPine BESYLATE 5 MG TAB PO SCH (08:46)
[2023-05-14] MEDS: EZETIMIBE 10 MG TAB PO SCH (08:46)
[2023-05-14] MEDS: HEPARIN SOD 5,000 UNIT/0.5 ML VIAL SQ SCH ×2 (08:47→20:45)
[2023-05-14] MEDS: PANTOprazole 40 MG TAB PO SCH (08:47)
[2023-05-14] MEDS: ACETAMINOPHEN 500 MG TAB PO SCH ×3 (08:49→20:51)
[2023-05-14] MEDS: ASPIRIN 81 MG CHEW PO SCH (09:27)
[2023-05-14] MEDS: cloNIDine HCL 0.1 MG TAB PO SCH (09:27)
[2023-05-14] MEDS: PREGABALIN 25 MG CAP PO SCH ×3 (09:27→20:51)
--- NOTE | 2023-05-14 13:05 | Nephrology Progress Note ---
Date of Service May 14, 2023 Assessment & Plan (1) End stage renal disease on dialysis due to type 2 diabetes mellitus: (2) Anemia due to chronic kidney disease: (3) Peripheral vascular disease in diabetes mellitus: (4) Gangrene of left foot: Plan ESKD on hemodialysis Tuesday, history, Tuesday at [facility] dialysis unit, admitted with chronic nonhealing left foot gangrene, s/p left BKA on 05/13/2023. Overall clinically otherwise stable. Had dialysis yesterday blood pressure, electrolyte, volume status acceptable. -- Monitor over the weekend and plan for dialysis Tuesday. -- Avoid IV fluid, dose medications for EGFR less than 10, right precaution. Admission and Anticipated Discharge Date Admission Date: May 06, 2023 Subjective Jacqui was seen and evaluated this morning. Looks comfortable however she is very emotional after having left BKA yesterday. Continues to have significant pain even with minimal movement. Blood pressure, volume status and electrolyte acceptable. Review of Systems Review of Systems: System was done and pertinent positives and negatives were mentioned above. Physical Exam Constitutional: WD/WN, vitals as above no acute distress Eyes: + anicteric sclerae Neck: normal visual inspection Respiratory: Auscultation: lungs clear to auscultation bilaterally Cardiovascular: RRR, no murmur, no edema Extremities: + AV fistula (rt BC AVF with thrill and bruit, aneurysm stable.) Musculoskeletal: left BKA, in dressing Neurologic: no focal motor deficits Psychiatric: Orientation: alert and oriented x 3 Results & Data Vital Signs (Past 12 Hours) Vital Signs Temp Pulse Pulse Resp BP Pulse Ox O2 Del Method 05/14/23 11:23 36.6 C 62 20 129/66 96 Room Air 05/14/23 07:58 37.0 C 70 20 135/66 93 Room Air 05/14/23 07:22 71 05/14/23 03:56 36.6 C 70 18 134/51 L 94 Room Air PG Care Time/CCT Total # of Minutes Spent Total Time Spent with Patient: Total time spent is greater than 50% in coordination of care (as documented) at patient's floor/unit and/or counseling patient: Coding Level of Care Code 11260 SUB INP/OBS CARE 2/35MIN Diagnoses End stage renal disease on dialysis due to type 2 diabetes mellitus E11.22; N18.6; Z99.2 Anemia due to chronic kidney disease N18.9; D63.1 Peripheral vascular disease in diabetes mellitus E11.51 Gangrene of left foot I96
--- NOTE | 2023-05-14 14:03 | Hospitalist Progress Note ---
Date of Service May 14, 2023 Assessment & Plan (1) Diabetic infection of left foot: Plan: Now s/p left BKA. by Dr. Richardson Patient has been taking vancomycin on dialysis days for the past 5 weeks to cover for osteomyelitis Vancomycin + cefepime increased pain control, Phantom/ neuropathic pain not at goal with lyrica will increase to TID 75mg per day (2) Peripheral arterial disease: Plan: s/p endovascular intervention 04/04. Dr. Campbell saw the patient review of arterial Dopplers suggest prior stents are patent with mild to moderate SFA restenosis arterial perfusion seems adequate to heal surgical wounds after plan BKA per his recommendations. Clopidogrel can be stopped prior to surgery and resume when safe from a postsurgical standpoint (3) Anemia: Plan: anemia of chronic renal disease, plus influenced by infection B12, folate, iron studies, retic Suspect secondary to ESRD and will defer management for nephrology regarding EPO injections (4) ESRD (end stage renal disease) on dialysis: Plan: Consult nephrology for ongoing dialysis management Restart on her usual anti-hypertensives hopeful hyponatremia will be improved on dialysis (5) DM II (diabetes mellitus, type II), controlled: Plan: HbA1C not accurate in setting of ESRD on dialysis Patient is not currently on any diabetic medications at home With current glucose measurements this appears to be a historical rather than current diagnosis therefore BSG ACHS and insulin discontinued (6) CHF (congestive heart failure): Plan: HFpEF last echo 04/04 with preservef systolic function Fluid management with dialysis (7) UTI (urinary tract infection): Plan: Ruled out Plan VTE Prophylaxis - heparin 5000 units SQ BID (on hold pending stability in Hgb) Diet - dialysis renal Disposition - continued admission pending BKA on med/tele Admission and Anticipated Discharge Date Admission Date: May 06, 2023 Subjective Patient reports she continues to have phantom pains Review of Systems Review of Systems: All systems reviewed & are unremarkable except as noted in HPI & below Physical Exam Physical Exam: Patient improved phantom pain now to her transmetatarsal area of her left foot. No chest pain or pressure lungs are clear but diminished at the bases Card exam is regular Results & Data Results & Data Vital Signs (Past 12 Hours) Vital Signs Temp Pulse Pulse Resp BP Pulse Ox O2 Del Method 05/14/23 11:23 36.6 C 62 20 129/66 96 Room Air 05/14/23 07:58 37.0 C 70 20 135/66 93 Room Air 05/14/23 07:22 71 05/14/23 03:56 36.6 C 70 18 134/51 L 94 Room Air PG Care Time/CCT Total # of Minutes Spent Total Time Spent with Patient: Total time spent is greater than 50% in coordination of care (as documented) at patient's floor/unit and/or counseling patient: Coding Level of Care Code 28712 SUB INP/OBS CARE 2/35MIN Diagnoses Diabetic infection of left foot E11.628; L08.9 Peripheral arterial disease I73.9 Anemia D64.9 ESRD (end stage renal disease) on dialysis N18.6; Z99.2 DM II (diabetes mellitus, type II), controlled E11.9 CHF (congestive heart failure) I50.9 UTI (urinary tract infection) N39.0
[2023-05-14 15:28] LABS: Hematocrit (blood only) 27.7 % (37.0-47.0); Hemoglobin 8.7 g/dl (12.0-16.0)
[2023-05-14] MEDS: CEFEPIME 1,000 MG in SYRINGE 0 ML IV SCH (16:56)
[2023-05-14] MEDS: ISOSORBIDE MONO EXTENDED REL 30 MG TABCR PO SCH (20:44)
[2023-05-14] MEDS: lisinopril 40 MG TAB PO SCH (20:44)
[2023-05-14] MEDS: ATORVASTATIN 40 MG TAB PO SCH (20:44)
[2023-05-14] MEDS: MELATONIN 3 MG TAB PO SCH (20:51)
--- NOTE | 2023-05-14 22:47 | Orthopedic Progress Note ---
Date of Service May 14, 2023 Assessment & Plan (1) Chronic osteomyelitis of left foot with draining sinus: Plan: Postoperative day #1 status post left below-knee amputation. Patient resting comfortably. Continue ice and elevation left lower extremity. Will likely pull drain tomorrow and perform dressing change. Continue VTE prophylaxis per medicine and nephrology services. Thank you for the opportunity to consult in the care of this patient. Vincent Richardson DO 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 Patient resting comfortably in bed. Does complain of moderate left lower extremity pain. Dr. Fabian addressed her "phantom limb pain" with increased Lyrica. Physical Exam Physical Exam: Currently watching television in supine position in her hospital room. Constitutional: WD/WN, vitals as above Eyes: PERRL, conjunctivae normal, anicteric sclerae ENMT: external ear and nose normal, oropharynx normal Neck: trachea midline, no thyromegaly Gastrointestinal (Abdomen): Soft, nontender and nondistended. Bowel sounds present. Musculoskeletal: Left lower extremity dressing intact. Drain intact. Separation of serosanguineous fluid in the tubing indicates slowing of drainage. Stump is soft. Compartments soft. No strikethrough. Neurologic: PERRL, EOMI, accommodation nl, no face palsy, no dysarthria Psychiatric: A+Ox3, euthymic affect Lymphatic: no cervical or axillary lymphadenopathy Results & Data Vital Signs (Past 12 Hours) Vital Signs Temp Pulse Pulse Resp BP Pulse Ox O2 Del Method 05/14/23 19:52 36.6 C 59 L 18 112/65 98 Room Air 05/14/23 16:07 78 05/14/23 15:17 36.6 C 58 L 20 98/63 L 98 Room Air 05/14/23 11:23 36.6 C 62 20 129/66 96 Room Air Laboratory Results Laboratories reviewed. 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
[2023-05-15] MEDS: LEVOTHYROXINE SODIUM 125 MCG TABLET PO SCH (05:58)
[2023-05-15 06:17] LABS: Hematocrit (blood only) 20.9 % (37.0-47.0); Hemoglobin 6.7 g/dl (12.0-16.0); Mean Corpuscular Hemoglobin 31.5 pg (25.0-34.0); Mean Corpuscular Hgb Conc 32.1 g/dL (32.0-36.0); Mean Corpuscular Volume 98.1 fL (80.0-100.0); Mean Platelet Volume 11.2 fL (9.4-12.4); Platelet Count 204 K/uL (130-400); RDW Coefficient of Variation 16.8 % (11.5-14.5); RDW Standard Deviation 60.9 fL (36.4-46.3); Red Blood Count 2.13 M/uL (4.20-5.40); White Blood Count 6.65 K/ul (4.8-10.8)
[2023-05-15] MEDS ORDERED: SODIUM CHLORIDE 0.9% 250 ML IV PRN (06:25)
[2023-05-15] MEDS: HYDROmorphone INJ 0.5 MG/0.5 ML SYR IV PRN ×4 (06:35→23:39)
[2023-05-15 06:58] LABS: Basophils # (auto) 0.03 K/uL (0.00-0.20); Basophils % (auto) 0.5 %; Eosinophils # (auto) 0.21 K/uL (0.00-0.50); Eosinophils % (auto) 3.2 %; Immature Granulocytes # (auto) 0.02 K/uL (0.01-0.20); Immature Granulocytes % (auto) 0.3 %; Lymphocytes # (auto) 1.81 K/uL (1.20-3.40); Lymphocytes % (auto) 27.2 %; Monocytes % (auto) 7.5 %; Neutrophils # (auto) 4.08 K/uL (1.40-6.50); Neutrophils % (auto) 61.3 %; Polychromasia 1+
[2023-05-15] MEDS: EZETIMIBE 10 MG TAB PO SCH (07:40)
[2023-05-15] MEDS: METOPROLOL TARTRATE 50 MG TAB PO SCH ×2 (07:40→22:01)
[2023-05-15] MEDS: SEVELAMER HCL 800 MG TABLET PO SCH ×3 (07:40→16:04)
[2023-05-15] MEDS: PANTOprazole 40 MG TAB PO SCH (07:40)
[2023-05-15] MEDS: amLODIPine BESYLATE 5 MG TAB PO SCH (07:41)
[2023-05-15] MEDS: FUROSEMIDE 40 MG TAB PO SCH (07:41)
[2023-05-15] MEDS: allopurinoL 100 MG TAB PO SCH (07:42)
[2023-05-15] MEDS: HEPARIN SOD 5,000 UNIT/0.5 ML VIAL SQ SCH (07:42)
[2023-05-15] MEDS: oxyCODONE HCL IR 5 MG TAB (IMMEDIATE RELEASE) PO PRN ×3 (07:43→21:59)
[2023-05-15] MEDS: cloNIDine HCL 0.1 MG TAB PO SCH (07:44)
[2023-05-15] MEDS: ASPIRIN 81 MG CHEW PO SCH (07:44)
[2023-05-15] MEDS: ACETAMINOPHEN 500 MG TAB PO SCH ×3 (07:45→21:59)
[2023-05-15] MEDS: SENNA 8.6 MG TAB PO SCH ×2 (07:46→22:00)
[2023-05-15] MEDS: PREGABALIN 25 MG CAP PO SCH ×3 (07:53→22:05)
--- NOTE | 2023-05-15 10:31 | XRay Report ---
XR chest 1V portable CLINICAL HISTORY: Hypoxia COMPARISON STUDY: Chest radiograph May 06, 2023. FINDINGS: A loop recorder is incidentally noted. There is no pneumothorax. Trace bilateral pleural ef fusions are present. Interstitial thickening is again noted. Patchy bilateral airspace opacities have slightly progressed. Cardiomegaly is again noted. IMPRESSION: 1. Cardiomegaly with interstitial thickening and patchy bilateral airspace opacities. The findings fa vor pulmonary edema. A superimposed infectious process cannot be excluded. Radiographic follow-up to ensure resolution is recommended. 2. Trace bilateral pleural effusions. ACT 112: Negative or not required by law. Electronically signed by: Brian Jackson M.D. 05/15/2023 10:30 AM
--- NOTE | 2023-05-15 12:21 | Nephrology Progress Note ---
Date of Service May 15, 2023 Assessment & Plan (1) End stage renal disease on dialysis due to type 2 diabetes mellitus: (2) Anemia due to chronic kidney disease: (3) Peripheral vascular disease in diabetes mellitus: (4) Gangrene of left foot: Plan ESKD on hemodialysis Tuesday, history, Tuesday at [facility] dialysis unit, admitted with chronic nonhealing left foot gangrene, s/p left BKA on 05/13/2023. Blood pressure, electrolyte, volume status acceptable. Acute drop in hemoglobin, no sign of active bleeding at this time, getting blood transfusion. -- plan for dialysis Tuesday. AUGIE with HD tomorrow. -- Avoid IV fluid, dose medications for eGFR less than 10, right arm precaution. Admission and Anticipated Discharge Date Admission Date: May 06, 2023 Subjective Jacqui was seen and evaluated this morning. She was somewhat lethargic but opened eyes and answer question appropriately and mainly complained of feeling tired. Hemoglobin dropped to 6.7 and she was getting 1 unit of blood transfusion. Left BKA dressing was dry. Blood pressure relatively stable. Review of Systems Review of Systems: System was done and pertinent positives and negatives were mentioned above. Physical Exam Constitutional: WD/WN, vitals as above no acute distress Eyes: + anicteric sclerae Neck: normal visual inspection Respiratory: Auscultation: lungs clear to auscultation bilaterally Cardiovascular: RRR, no murmur, no edema Extremities: + AV fistula (rt BC AVF with thrill and bruit, aneurysm stable.) Neurologic: no focal motor deficits Psychiatric: Orientation: alert and oriented x 3 Results & Data Vital Signs (Past 12 Hours) Vital Signs Temp Pulse Pulse Resp BP BP Pulse Ox 05/15/23 12:15 37.1 C 66 17 124/72 98 05/15/23 11:28 36.8 C 64 17 121/69 96 05/15/23 10:28 36.8 C 70 17 135/72 98 05/15/23 09:28 36.7 C 72 17 133/65 98 05/15/23 08:58 36.8 C 67 20 145/75 H 92 05/15/23 08:43 36.8 C 71 20 130/70 93 05/15/23 08:23 36.8 C 71 18 127/85 93 05/15/23 07:50 37.1 C 65 20 124/53 L 92 05/15/23 07:10 64 05/15/23 03:51 36.9 C 63 16 124/69 92 O2 Del Method O2 Flow Rate 05/15/23 12:15 05/15/23 11:28 05/15/23 10:28 05/15/23 09:28 1 05/15/23 08:58 05/15/23 08:43 05/15/23 08:23 05/15/23 07:50 Room Air 05/15/23 07:10 05/15/23 03:51 Room Air PG Care Time/CCT Total # of Minutes Spent Total Time Spent with Patient: Total time spent is greater than 50% in coordination of care (as documented) at patient's floor/unit and/or counseling patient: Coding Level of Care Code 41727 SUB INP/OBS CARE 2/35MIN Diagnoses End stage renal disease on dialysis due to type 2 diabetes mellitus E11.22; N18.6; Z99.2 Anemia due to chronic kidney disease N18.9; D63.1 Peripheral vascular disease in diabetes mellitus E11.51 Gangrene of left foot I96
--- NOTE | 2023-05-15 13:27 | CT Scan Report ---
CT OF THE ABDOMEN AND PELVIS WITHOUT CONTRAST CLINICAL HISTORY: Anemia. COMPARISON STUDY: No previous studies for comparison. TECHNIQUE: Axial images of the abdomen and pelvis were obtained without IV contrast. Images were revi ewed in the axial, sagittal, and coronal planes. Automated exposure control was utilized for the carlos dy. A dose lowering technique was utilized adhering to the principles of ALARA. FINDINGS: Small bilateral pleural effusions are present. Subpleural opacities favor atelectasis. Ther e is interlobular septal thickening and groundglass opacities within the lower lungs. The findings fa vor pulmonary edema. Anasarca is present. Evaluation of the abdomen and pelvis is suboptimal on this unenhanced exam. There is no biliary ductal dilatation status post cholecystectomy. No hepatic lesion s are identified. Moderate renal atrophy is noted. There is no hydronephrosis. There is extensive vas cular calcification. Spleen, adrenal glands and pancreas are unremarkable. No retroperitoneal hematom a is present. There is no hemoperitoneum. Moderate amount of stool within the colon is present. The s ensitivity for detection of bowel mucosal lesions is diminished given CT technique but none are ident ified. There is no lymphadenopathy. There are no fluid collections. No acute fractures within the vis ualized skeletal structures are present. Bladder is distended. IMPRESSION: 1. No retroperitoneal hematoma. No hemoperitoneum. 2. Anasarca. Small bilateral pleural effusions. Findings suggestive of pulmonary edema within the low er chest. 3. No bowel obstruction. Moderate amount of stool within the colon. 4. Distended bladder. No hydronephrosis. Moderate bilateral renal atrophy. 5. Extensive vascular calcification. ACT 112: Negative or not required by law. Electronically signed by: Brian Jackson M.D. 05/15/2023 1:25 PM
--- NOTE | 2023-05-15 15:53 | Orthopedic Progress Note ---
Date of Service May 15, 2023 Assessment & Plan (1) Chronic osteomyelitis of left foot with draining sinus: Plan: Postoperative day #2 status post left below-knee amputation. Patient resting comfortably. Continue ice and elevation left lower extremity. Drain pulled. Nursing to perform sterile dry dressing change today. Continue VTE prophylaxis per medicine and nephrology services. Thank you for the opportunity to consult in the care of this patient. 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 Mild to moderate complaints of pain with the residual left lower extremity including phantom limb pain. Hemoglobin dropped to 6.7 and she received 1 unit of PRBCs. Jacqui is relatively alert and told me a story about her engagement and wedding to her . Physical Exam Physical Exam: Currently watching television in supine position in her hospital room. Constitutional: WD/WN, vitals as above Eyes: PERRL, conjunctivae normal, anicteric sclerae ENMT: external ear and nose normal, oropharynx normal Neck: trachea midline, no thyromegaly Musculoskeletal: Left lower extremity dressing intact. Drain pulled without any difficulty. Separation of serosanguineous fluid in the tubing indicates slowing of drainage. Approximately 30 cc of serosanguineous discharge in the Hemovac drain when pulled. Stump is soft. Compartments soft. No strikethrough. Neurologic: PERRL, EOMI, accommodation nl, no face palsy, no dysarthria Psychiatric: A+Ox3, euthymic affect Lymphatic: no cervical or axillary lymphadenopathy Results & Data Vital Signs (Past 12 Hours) Vital Signs Temp Pulse Pulse Resp BP BP Pulse Ox 05/15/23 15:00 64 05/15/23 12:15 37.1 C 66 17 124/72 98 05/15/23 11:28 36.8 C 64 17 121/69 96 05/15/23 10:28 36.8 C 70 17 135/72 98 05/15/23 09:28 36.7 C 72 17 133/65 98 05/15/23 08:58 36.8 C 67 20 145/75 H 92 05/15/23 08:43 36.8 C 71 20 130/70 93 05/15/23 08:23 36.8 C 71 18 127/85 93 05/15/23 07:50 37.1 C 65 20 124/53 L 92 05/15/23 07:10 64 O2 Del Method O2 Flow Rate 05/15/23 15:00 05/15/23 12:15 05/15/23 11:28 05/15/23 10:28 05/15/23 09:28 1 05/15/23 08:58 05/15/23 08:43 05/15/23 08:23 05/15/23 07:50 Room Air 05/15/23 07:10 Laboratory Results Laboratories reviewed. Hemoglobin 6.7. Awaiting laboratory draw to confirm elevation of hemoglobin after transfusion. White blood cell count trending downward. Sed rate trending downward. 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
[2023-05-15 16:51] LABS: Hematocrit (blood only) 27.5 % (37.0-47.0); Hemoglobin 9.3 g/dl (12.0-16.0)
--- NOTE | 2023-05-15 17:09 | Hospitalist Progress Note ---
Date of Service May 15, 2023 Assessment & Plan (1) Diabetic infection of left foot: Plan: Now s/p left BKA. by Dr. Richardson Patient has been taking vancomycin on dialysis days for the past 5 weeks to cover for osteomyelitis Vancomycin + cefepime increased pain control, Phantom/ neuropathic pain improved. will increase to TID 75mg per day. Anemia: Acute blood lose anemia Required transfusion. Goal is to maintain h and H above 8.5 for stump healing. (2) Peripheral arterial disease: Plan: s/p endovascular intervention 04/04. Dr. Campbell saw the patient review of arterial Dopplers suggest prior stents are patent with mild to moderate SFA restenosis arterial perfusion seems adequate to heal surgical wounds after plan BKA per his recommendations. Clopidogrel can be stopped prior to surgery and resume when safe from a postsurgical standpoint (3) Anemia: Plan: anemia of chronic renal disease, plus influenced by infection B12, folate, iron studies, retic Suspect secondary to ESRD and will defer management for nephrology regarding EPO injections (4) ESRD (end stage renal disease) on dialysis: Plan: Consult nephrology for ongoing dialysis management Restart on her usual anti-hypertensives hopeful hyponatremia will be improved on dialysis (5) DM II (diabetes mellitus, type II), controlled: Plan: HbA1C not accurate in setting of ESRD on dialysis Patient is not currently on any diabetic medications at home With current glucose measurements this appears to be a historical rather than current diagnosis therefore BSG ACHS and insulin discontinued (6) CHF (congestive heart failure): Plan: HFpEF last echo 04/04 with preservef systolic function Fluid management with dialysis (7) UTI (urinary tract infection): Plan: Ruled out Plan VTE Prophylaxis - heparin 5000 units SQ BID (on hold pending stability in Hgb) Diet - dialysis renal Disposition - continued admission pending BKA on med/tele Admission and Anticipated Discharge Date Admission Date: May 06, 2023 Subjective Patient reports feeling confused today. HOwever she is aware of when she was admitted. ANd how many days she is in the hospital. Review of Systems Review of Systems: All systems reviewed & are unremarkable except as noted in HPI & below Physical Exam Physical Exam: Patient improved phantom pain now to her transmetatarsal area of her left foot. No chest pain or pressure lungs are clear but diminished at the bases Card exam is regular Results & Data Results & Data Vital Signs (Past 12 Hours) Vital Signs Temp Pulse Pulse Resp BP BP Pulse Ox 05/15/23 15:58 37.1 C 63 20 149/66 H 94 05/15/23 15:00 64 05/15/23 12:15 37.1 C 66 17 124/72 98 05/15/23 11:28 36.8 C 64 17 121/69 96 05/15/23 10:28 36.8 C 70 17 135/72 98 05/15/23 09:28 36.7 C 72 17 133/65 98 05/15/23 08:58 36.8 C 67 20 145/75 H 92 05/15/23 08:43 36.8 C 71 20 130/70 93 05/15/23 08:23 36.8 C 71 18 127/85 93 05/15/23 07:50 37.1 C 65 20 124/53 L 92 05/15/23 07:10 64 O2 Del Method O2 Flow Rate 05/15/23 15:58 Room Air 05/15/23 15:00 05/15/23 12:15 05/15/23 11:28 05/15/23 10:28 05/15/23 09:28 1 05/15/23 08:58 05/15/23 08:43 05/15/23 08:23 05/15/23 07:50 Room Air 05/15/23 07:10 PG Care Time/CCT Total # of Minutes Spent Total Time Spent with Patient: Total time spent is greater than 50% in coordination of care (as documented) at patient's floor/unit and/or counseling patient: Coding Level of Care Code 16481 SUB INP/OBS CARE 2/35MIN Diagnoses Diabetic infection of left foot E11.628; L08.9 Peripheral arterial disease I73.9 Anemia D64.9 ESRD (end stage renal disease) on dialysis N18.6; Z99.2 DM II (diabetes mellitus, type II), controlled E11.9 CHF (congestive heart failure) I50.9 UTI (urinary tract infection) N39.0
[2023-05-15] MEDS: MELATONIN 3 MG TAB PO SCH (21:59)
[2023-05-15] MEDS: ISOSORBIDE MONO EXTENDED REL 30 MG TABCR PO SCH (22:01)
[2023-05-15] MEDS: ATORVASTATIN 40 MG TAB PO SCH (22:02)
[2023-05-15] MEDS: lisinopril 40 MG TAB PO SCH (22:02)
[2023-05-16] MEDS: HYDROmorphone INJ 0.5 MG/0.5 ML SYR IV PRN ×3 (03:58→21:54)
[2023-05-16 04:45] LABS: Hematocrit (blood only) 27.8 % (37.0-47.0); Hemoglobin 9.4 g/dl (12.0-16.0); Mean Corpuscular Hemoglobin 31.1 pg (25.0-34.0); Mean Corpuscular Hgb Conc 33.8 g/dL (32.0-36.0); Mean Corpuscular Volume 92.1 fL (80.0-100.0); Mean Platelet Volume 10.5 fL (9.4-12.4); Platelet Count 206 K/uL (130-400); RDW Coefficient of Variation 17.7 % (11.5-14.5); RDW Standard Deviation 58.7 fL (36.4-46.3); Red Blood Count 3.02 M/uL (4.20-5.40); White Blood Count 7.17 K/ul (4.8-10.8)
[2023-05-16 05:16] LABS: BUN Creatinine Ratio 6.6 (10-20); Calcium 7.7 mg/dl (8.6-10.3); Creatinine Clr Calc Pharmacy 11.6 ml/min; Est GFR (African American) 11.8 ml/min; Est GFR (Non-African American) 10.2 ml/min; Potassium 4.6 mmol/L (3.5-5.1)
[2023-05-16] MEDS: LEVOTHYROXINE SODIUM 125 MCG TABLET PO SCH (06:22)
[2023-05-16] MEDS: METOPROLOL TARTRATE 50 MG TAB PO SCH ×2 (08:31→21:55)
[2023-05-16] MEDS: EZETIMIBE 10 MG TAB PO SCH (08:31)
[2023-05-16] MEDS: SEVELAMER HCL 800 MG TABLET PO SCH ×3 (08:31→18:25)
[2023-05-16] MEDS: allopurinoL 100 MG TAB PO SCH (08:31)
[2023-05-16] MEDS: amLODIPine BESYLATE 5 MG TAB PO SCH (08:31)
[2023-05-16] MEDS: FUROSEMIDE 40 MG TAB PO SCH (08:32)
[2023-05-16] MEDS: PANTOprazole 40 MG TAB PO SCH (08:32)
[2023-05-16] MEDS: SENNA 8.6 MG TAB PO SCH ×2 (08:32→21:56)
[2023-05-16] MEDS: ASPIRIN 81 MG CHEW PO SCH (08:39)
[2023-05-16] MEDS: PREGABALIN 25 MG CAP PO SCH ×3 (08:39→22:00)
[2023-05-16] MEDS: oxyCODONE HCL IR 5 MG TAB (IMMEDIATE RELEASE) PO PRN ×2 (08:40→18:26)
[2023-05-16] MEDS: ACETAMINOPHEN 500 MG TAB PO SCH ×3 (08:40→22:00)
[2023-05-16] MEDS: cloNIDine HCL 0.1 MG TAB PO SCH (08:40)
[2023-05-16] MEDS ORDERED: EPOETIN ALFA 20,000 UNITS/ML VIAL IV ONE (10:00)
--- NOTE | 2023-05-16 12:14 | Nephrology Progress Note ---
Date of Service May 16, 2023 Assessment & Plan (1) End stage renal disease on dialysis due to type 2 diabetes mellitus: (2) Anemia due to chronic kidney disease: (3) Peripheral vascular disease in diabetes mellitus: (4) Gangrene of left foot: Plan ESKD on hemodialysis Tuesday, history, Tuesday at [facility] dialysis unit, admitted with chronic nonhealing left foot gangrene, s/p left BKA on 05/13/2023. Blood pressure, electrolyte, volume status acceptable. Hemoglobin improved after 1 unit of blood transfusion. -- dialysis today.. AUGIE with HD. -- Avoid IV fluid, dose medications for eGFR less than 10, right arm precaution. Admission and Anticipated Discharge Date Admission Date: May 06, 2023 Subjective Jacqui was seen and evaluated this morning. She complains of continued severe pain at left BKA site. Blood pressure relatively low but asymptomatic. Electrolyte acceptable. Due for dialysis today. Review of Systems Review of Systems: System was done and pertinent positives and negatives were mentioned above. Physical Exam Constitutional: WD/WN, vitals as above no acute distress Eyes: + anicteric sclerae Neck: normal visual inspection Respiratory: Auscultation: lungs clear to auscultation bilaterally Cardiovascular: RRR, no murmur, no edema Extremities: + AV fistula (rt BC AVF with thrill and bruit, aneurysm stable.) Neurologic: no focal motor deficits Psychiatric: Orientation: alert and oriented x 3 Results & Data Vital Signs (Past 12 Hours) Vital Signs Temp Pulse Resp BP Pulse Ox O2 Del Method 05/16/23 11:43 37.1 C 63 16 108/42 L 95 Room Air 05/16/23 08:00 36.8 C 72 16 125/70 90 Room Air 05/16/23 03:49 36.8 C 66 18 145/70 H 94 Room Air PG Care Time/CCT Total # of Minutes Spent Total Time Spent with Patient: Total time spent is greater than 50% in coordination of care (as documented) at patient's floor/unit and/or counseling patient: Coding Level of Care Code 36784 SUB INP/OBS CARE 2/35MIN Diagnoses End stage renal disease on dialysis due to type 2 diabetes mellitus E11.22; N18.6; Z99.2 Anemia due to chronic kidney disease N18.9; D63.1 Peripheral vascular disease in diabetes mellitus E11.51 Gangrene of left foot I96
--- NOTE | 2023-05-16 19:19 | Orthopedic Progress Note ---
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 Patient resting comfortably. Continue ice and elevation left lower extremity. Drain pulled. Nursing to perform sterile dry dressing change today. Continue VTE prophylaxis per medicine and nephrology services. Attempt to maintain hemoglobin at approximately 8.5 during the first 6 weeks postop period to encourage efficient tissue healing. Erin may be removed at 4 weeks postop while in rehab/nursing care facility. PT for range of motion left knee and transfer training. Follow-up with Dr. Richardson approximately 6 weeks postop in clinic. Thank you for the opportunity to consult in the care of this patient. 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 Continues to complain of moderate discomfort left lower extremity. Seems somewhat more confused and lethargic today compared to yesterday. Physical Exam Physical Exam: Currently watching television in supine position in her hospital room. Constitutional: WD/WN, vitals as above Eyes: PERRL, conjunctivae normal, anicteric sclerae ENMT: external ear and nose normal, oropharynx normal Neck: trachea midline, no thyromegaly Musculoskeletal: Left lower extremity dressing intact. Stump is soft with some tenderness distally. Compartments soft. No strikethrough. Left knee range of motion i mproved with both active and passive range of motion. Neurologic: PERRL, EOMI, accommodation nl, no face palsy, no dysarthria Psychiatric: A+Ox3, euthymic affect Lymphatic: no cervical or axillary lymphadenopathy Results & Data Vital Signs (Past 12 Hours) Vital Signs Temp Pulse Pulse Pulse Resp BP BP 05/16/23 17:00 36.9 C 61 126/48 L 05/16/23 16:30 62 122/46 L 05/16/23 16:00 63 122/49 L 05/16/23 15:30 63 124/47 L 05/16/23 15:00 64 113/49 L 05/16/23 14:30 62 107/43 L 05/16/23 14:08 60 05/16/23 14:00 59 L 111/57 L 05/16/23 13:51 57 L 124/53 L 05/16/23 13:46 36.9 C 58 L 05/16/23 11:43 37.1 C 63 16 108/42 L 05/16/23 10:00 05/16/23 08:00 36.8 C 72 16 125/70 Pulse Ox O2 Del Method 05/16/23 17:00 05/16/23 16:30 05/16/23 16:00 05/16/23 15:30 05/16/23 15:00 05/16/23 14:30 05/16/23 14:08 05/16/23 14:00 05/16/23 13:51 05/16/23 13:46 05/16/23 11:43 95 Room Air 05/16/23 10:00 Room Air 05/16/23 08:00 90 Room Air Laboratory Results Results reviewed. Hemoglobin improved. 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
[2023-05-16] MEDS: MELATONIN 3 MG TAB PO SCH (21:54)
[2023-05-16] MEDS: lisinopril 40 MG TAB PO SCH (21:55)
[2023-05-16] MEDS: ISOSORBIDE MONO EXTENDED REL 30 MG TABCR PO SCH (21:55)
[2023-05-16] MEDS: ATORVASTATIN 40 MG TAB PO SCH (21:56)
--- NOTE | 2023-05-16 22:20 | Hospitalist Progress Note ---
Date of Service May 16, 2023 Assessment & Plan (1) Diabetic infection of left foot: Plan: Now s/p left BKA. by Dr. Richardson Patient has been taking vancomycin on dialysis days for the past 5 weeks to cover for osteomyelitis Vancomycin + cefepime increased pain control, Phantom/ neuropathic pain improved. contiue lyrica TID 75mg per day. Anemia: Acute blood lose anemia Required transfusion. Goal is to maintain h and H above 8.5 for stump healing. hemoglobin at goal. (2) Peripheral arterial disease: Plan: s/p endovascular intervention 04/04. Dr. Campbell saw the patient review of arterial Dopplers suggest prior stents are patent with mild to moderate SFA restenosis arterial perfusion seems adequate to heal surgical wounds after plan BKA per his recommendations. Clopidogrel can be stopped prior to surgery and resume when safe from a postsurgical standpoint (3) Anemia: Plan: anemia of chronic renal disease, plus influenced by infection B12, folate, iron studies, retic Suspect secondary to ESRD and will defer management for nephrology regarding EPO injections (4) ESRD (end stage renal disease) on dialysis: Plan: Consult nephrology for ongoing dialysis management Restart on her usual anti-hypertensives hopeful hyponatremia will be improved on dialysis (5) DM II (diabetes mellitus, type II), controlled: Plan: HbA1C not accurate in setting of ESRD on dialysis Patient is not currently on any diabetic medications at home With current glucose measurements this appears to be a historical rather than current diagnosis therefore BSG ACHS and insulin discontinued (6) CHF (congestive heart failure): Plan: HFpEF last echo 04/04 with preservef systolic function Fluid management with dialysis (7) UTI (urinary tract infection): Plan: Ruled out Plan VTE Prophylaxis - heparin 5000 units SQ BID (on hold pending stability in Hgb) Diet - dialysis renal Disposition - continued admission pending BKA on med/tele Admission and Anticipated Discharge Date Admission Date: May 06, 2023 Subjective 62 yo female reports no new symptoms. Review of Systems Review of Systems: All systems reviewed & are unremarkable except as noted in HPI & below Physical Exam Physical Exam: Patient improved phantom pain now to her transmetatarsal area of her left foot. No chest pain or pressure lungs are clear but diminished at the bases Card exam is regular Results & Data Results & Data Vital Signs (Past 12 Hours) Vital Signs Temp Pulse Pulse Pulse Resp BP BP 05/16/23 19:00 37.1 C 64 18 147/69 H 05/16/23 17:00 36.9 C 61 126/48 L 05/16/23 16:30 62 122/46 L 05/16/23 16:00 63 122/49 L 05/16/23 15:30 63 124/47 L 05/16/23 15:00 64 113/49 L 05/16/23 14:30 62 107/43 L 05/16/23 14:08 60 05/16/23 14:00 59 L 111/57 L 05/16/23 13:51 57 L 124/53 L 05/16/23 13:46 36.9 C 58 L 05/16/23 11:43 37.1 C 63 16 108/42 L Pulse Ox O2 Del Method 05/16/23 19:00 92 Room Air 05/16/23 17:00 05/16/23 16:30 05/16/23 16:00 05/16/23 15:30 05/16/23 15:00 05/16/23 14:30 05/16/23 14:08 05/16/23 14:00 05/16/23 13:51 05/16/23 13:46 05/16/23 11:43 95 Room Air PG Care Time/CCT Total # of Minutes Spent Total Time Spent with Patient: Total time spent is greater than 50% in coordination of care (as documented) at patient's floor/unit and/or counseling patient: Coding Level of Care Code 42534 SUB INP/OBS CARE 2/35MIN Diagnoses Diabetic infection of left foot E11.628; L08.9 Peripheral arterial disease I73.9 Anemia D64.9 ESRD (end stage renal disease) on dialysis N18.6; Z99.2 DM II (diabetes mellitus, type II), controlled E11.9 CHF (congestive heart failure) I50.9 UTI (urinary tract infection) N39.0
[2023-05-17] MEDS: oxyCODONE HCL IR 5 MG TAB (IMMEDIATE RELEASE) PO PRN ×3 (01:44→16:30)
[2023-05-17 05:05] LABS: Hematocrit (blood only) 28.9 % (37.0-47.0); Hemoglobin 9.6 g/dl (12.0-16.0); Mean Corpuscular Hemoglobin 31.2 pg (25.0-34.0); Mean Corpuscular Hgb Conc 33.2 g/dL (32.0-36.0); Mean Corpuscular Volume 93.8 fL (80.0-100.0); Platelet Count 202 K/uL (130-400); RDW Coefficient of Variation 18.9 % (11.5-14.5); RDW Standard Deviation 61.4 fL (36.4-46.3); Red Blood Count 3.08 M/uL (4.20-5.40)
[2023-05-17 05:18] LABS: BUN Creatinine Ratio 5.3 (10-20); C Reactive Protein 8.88 mg/dl (0-0.5); Calcium 7.8 mg/dl (8.6-10.3); Creatinine Clr Calc Pharmacy 16.6 ml/min; Est GFR (African American) 20.2 ml/min; Est GFR (Non-African American) 17.4 ml/min; Potassium 3.8 mmol/L (3.5-5.1)
[2023-05-17] MEDS: LEVOTHYROXINE SODIUM 125 MCG TABLET PO SCH (05:44)
[2023-05-17] MEDS: PREGABALIN 25 MG CAP PO SCH ×2 (07:49→13:20)
[2023-05-17] MEDS: amLODIPine BESYLATE 5 MG TAB PO SCH (08:20)
[2023-05-17] MEDS: SEVELAMER HCL 800 MG TABLET PO SCH ×2 (08:20→12:41)
[2023-05-17] MEDS: METOPROLOL TARTRATE 50 MG TAB PO SCH (08:20)
[2023-05-17] MEDS: FUROSEMIDE 40 MG TAB PO SCH (08:20)
[2023-05-17] MEDS: SENNA 8.6 MG TAB PO SCH (08:20)
[2023-05-17] MEDS: allopurinoL 100 MG TAB PO SCH (08:20)
[2023-05-17] MEDS: PANTOprazole 40 MG TAB PO SCH (08:20)
[2023-05-17] MEDS: EZETIMIBE 10 MG TAB PO SCH (08:20)
[2023-05-17] MEDS: ASPIRIN 81 MG CHEW PO SCH (08:23)
[2023-05-17] MEDS: cloNIDine HCL 0.1 MG TAB PO SCH (08:23)
[2023-05-17] MEDS: ACETAMINOPHEN 500 MG TAB PO SCH ×2 (08:23→13:20)
[2023-05-17] MEDS: DOCUSATE SODIUM 100 MG CAP PO PRN (08:23)
--- NOTE | 2023-05-17 12:29 | Nephrology Progress Note ---
Date of Service May 17, 2023 Assessment & Plan (1) End stage renal disease on dialysis due to type 2 diabetes mellitus: (2) Anemia due to chronic kidney disease: (3) Peripheral vascular disease in diabetes mellitus: (4) Gangrene of left foot: Plan ESKD on hemodialysis Tuesday, history, Tuesday at [facility] dialysis unit, admitted with chronic nonhealing left foot gangrene, s/p left BKA on 05/13/2023. Blood pressure, electrolyte, volume status acceptable. Had dialysis yesterday, received Epogen during dialysis. --Waiting for discharge to [facility] --Next dialysis tomorrow -- Avoid IV fluid, dose medications for eGFR less than 10, right arm precaution. Admission and Anticipated Discharge Date Admission Date: May 06, 2023 Subjective Jacqui was seen and evaluated this morning. She was very emotional and tearful as she reported one of her relative was killed yesterday and complains of continued severe pain at left BKA site. Blood pressure relatively low but asymptomatic. Electrolyte acceptable. Had dialysis yesterday. Review of Systems Review of Systems: System was done and pertinent positives and negatives were mentioned above. Physical Exam Constitutional: WD/WN, vitals as above no acute distress Eyes: + anicteric sclerae Neck: normal visual inspection Respiratory: Auscultation: lungs clear to auscultation bilaterally Cardiovascular: RRR, no murmur, no edema Extremities: + AV fistula (rt BC AVF with thrill and bruit, aneurysm stable.) Neurologic: no focal motor deficits Psychiatric: Orientation: alert and oriented x 3 Results & Data Vital Signs (Past 12 Hours) Vital Signs Temp Pulse Pulse Pulse Resp BP Pulse Ox 05/17/23 11:51 36.4 C L 55 L 16 121/67 90 05/17/23 08:01 36.4 C L 67 16 172/63 H 94 05/17/23 06:18 63 05/17/23 03:30 37.3 C 71 18 146/69 H 93 O2 Del Method 05/17/23 11:51 Room Air 05/17/23 08:01 Room Air 05/17/23 06:18 05/17/23 03:30 Room Air PG Care Time/CCT Total # of Minutes Spent Total Time Spent with Patient: Total time spent is greater than 50% in coordination of care (as documented) at patient's floor/unit and/or counseling patient: Coding Level of Care Code 70487 SUB INP/OBS CARE Diagnoses End stage renal disease on dialysis due to type 2 diabetes mellitus E11.22; N18.6; Z99.2 Anemia due to chronic kidney disease N18.9; D63.1 Peripheral vascular disease in diabetes mellitus E11.51 Gangrene of left foot I96
--- NOTE | 2023-05-17 15:26 | Discharge Summary ---
Date of Service May 17, 2023 Admission HPI Per Admitting Provider [place] is a 62-year-old female with PMH of ESRD on HD M/W/F, CAD, PAD s/p angioplasty, hypothyroidism, T2DM, and left diabetic foot infection s/p surgical debridement and partial left foot amputation on 03/15/[address] Dias. She presented for malodorous left foot and potential infection on 05/06. Patient received dialysis this morning, and the nurses noted that the foot was malodorous. Home health care nurse on Thursday 05/03 also noted that it was starting to smell. Patient endorses sharp, constant left foot pain; 03/22. She has been taking oxycodone for it (10 mg at night) which makes it bearable. Shiraz horton has been receiving vancomycin at dialysis to cover for osteomyelitis x5 weeks. Dr. Dias is unavailable until 05/11. Patient endorses tobacco cigarette smoking; 5 cigarettes/daily. She denies alcohol use, vaping, and recreational drug use. Patient took morning medications, and reports no recent changes to medication. She is hypertensive at 194/76 at time of admission. ED course: Oxycodone 5 mg Cefepime 2000 mg Patient received vancomycin earlier today at HD, and has been receiving for osteomyelitis coverage ROS: Patient endorses infrequent urination and L foot pain. Patient denies fever, chills, sweating, NOBLES, dizziness, lightheadedness, CP, SOB, abdominal, N/V/D, burning with urination, numbness/tingling in the LEs. Discharge Data Allergies Allergy/AdvReac Type Severity Reaction Status Date / Time morphine Allergy Severe Hallucinati Verified 05/06/23 16:01 ng codeine Allergy Intermediate Redness of Verified 05/06/23 16:01 Skin prednisone Allergy Intermediate Itching Verified 05/06/23 16:01 Consultations 05/06/23 16:18 ED Decision to Admit Stat 05/07/23 09:13 Consult Podiatry Routine 05/07/23 10:02 Consult Nephrology Routine 05/08/23 09:35 Consult Orthopedic Surgery Routine 05/08/23 18:33 Consult Vascular Surgery Routine Procedures Performed Operation Date: 05/13/23 07:30 Actual Procedures p Left Below Knee Amputation(Left) - Vincent Richardson DO Ordered Studies 05/06/23 20:10 MRI Ankle [MR ankle LT wo con] Stat 05/09/23 US arterial duplex LE LT Routine 05/13/23 07:50 US - OR guided needle placemen Stat 05/15/23 09:40 CT abd pelvis wo con Routine Hospital Course (1) Diabetic infection of left foot: Now s/p left BKA. by Dr. Richardson Patient has been taking vancomycin on dialysis days for the past 5 weeks to cover for osteomyelitis Vancomycin + cefepime increased pain control, Phantom/ neuropathic pain improved. contiue lyrica TID 75mg per day. Anemia: Acute blood lose anemia Required transfusion. Goal is to maintain h and H above 8.5 for stump healing. hemoglobin at goal. (2) Peripheral arterial disease: s/p endovascular intervention 04/04. Dr. Campbell saw the patient review of arterial Dopplers suggest prior stents are patent with mild to moderate SFA restenosis arterial perfusion seems adequate to heal surgical wounds after plan BKA per his recommendations. Clopidogrel can be stopped prior to surgery and resume when safe from a postsurgical standpoint (3) Anemia: anemia of chronic renal disease, plus influenced by infection B12, folate, iron studies, retic Suspect secondary to ESRD and will defer management for nephrology regarding EPO injections (4) ESRD (end stage renal disease) on dialysis: Consult nephrology for ongoing dialysis management Restart on her usual anti-hypertensives hopeful hyponatremia will be improved on dialysis (5) DM II (diabetes mellitus, type II), controlled: HbA1C not accurate in setting of ESRD on dialysis Patient is not currently on any diabetic medications at home With current glucose measurements this appears to be a historical rather than current diagnosis therefore BSG ACHS and insulin discontinued (6) CHF (congestive heart failure): HFpEF last echo 04/04 with preservef systolic function Fluid management with dialysis (7) UTI (urinary tract infection): Ruled out Plan VTE Prophylaxis - heparin 5000 units SQ BID (on hold pending stability in Hgb) Diet - dialysis renal Disposition - continued admission pending BKA on med/tele Discharge Plan Discharge Items Patient Disposition: Transfer Inpatient Rehab Fac Reason For Visit: L FOOT INFECTION/PAIN Discharge Diagnosis: L foot infection/pain Activity: Resume your previous activity Non-emergency contact: Primary Care Provider Call non-emergency contact if: you have any medication questions Follow-up/Referrals: [facility] [Primary Care Provider] - Diet: Carb Consistent or DM2 and Dialysis Renal Addtl Attending Provider Instructions: DIALYSIS TUESDAY, TUESDAY AND TUESDAY. Postoperative day #3 status post left below-knee amputation. Patient resting comfortably. Continue ice and elevation left lower extremity. Drain pulled. Nursing to perform sterile dry dressing change today. Continue VTE prophylaxis per medicine and nephrology services. Attempt to maintain hemoglobin at approximately 8.5 during the first 6 weeks postop period to encourage efficient tissue healing. Erin may be removed at 4 weeks postop while in rehab/nursing care facility. PT for range of motion left knee and transfer training. Follow-up with Dr. Richardson approximately 6 weeks postop in clinic. Thank you for the opportunity to consult in the care of this patient. Vincent Richardson DO [facility] [place] [phone] Pending Studies at Discharge: No Stand-Alone Forms: My [facility] Skilled Items Patient informed of condition?: Yes DNR: Yes Discharge Level of Care: Acute rehab Communicable Disease: No Discharge Prognosis: Stable Lines: None Urinary Catheter: No Medications and DC Order Prescriptions: New heparin, porcine (PF) 5,000 unit/0.5 mL Syringe 5,000 unit subcut Q12 Qty: 0 0RF pregabalin [Lyrica] 25 mg Capsule 75 mg PO .after dialysis Qty: 0 0RF Continued calcium carbonate-vitamin D3 [Oyster Shell Calcium-Vit D3] 500 mg-10 mcg (400 unit) tablet 1 tab PO BID amlodipine 10 mg tablet 10 mg PO DAILY Qty: 30 0RF calcitriol 0.25 mcg Capsule 0.25 mcg PO QAM Qty: 30 0RF oxycodone 5 mg tablet 5 mg PO Q4H PRN (Reason: Pain) Qty: 15 0RF furosemide [Lasix] 40 mg tablet 40 mg PO DAILY atorvastatin [Lipitor] 40 mg tablet 40 mg PO HS clonidine HCl 0.1 mg tablet 0.1 mg PO DAILY isosorbide mononitrate 30 mg tablet extended release 24 hr 30 mg PO HS clopidogrel 75 mg tablet 75 mg PO DAILY allopurinol 100 mg tablet 100 mg PO DAILY esomeprazole magnesium [Nexium] 40 mg capsule,delayed release(DR/EC) 40 mg PO DAILY levothyroxine 125 mcg tablet 125 mcg PO QAM metoprolol tartrate 50 mg tablet See Rx Instructions .ROUTE .COMPLEX Rx Instructions: Take 50mg by mouth in the morning and 100mg by mouth at bedtime nitroglycerin 0.4 mg tablet, sublingual 0.4 mg sublingual DIRECTED PRN (Reason: Chest Pain) Rx Instructions: Take 1 tablet by mouth every 5 minutes X3 for chest pain as needed aspirin 81 mg tablet,chewable 81 mg PO DAILY albuterol sulfate 90 mcg/actuation HFA aerosol inhaler 1 puff INHALATION QID PRN (Reason: bad cough) lisinopril [Zestril] 40 mg tablet 40 mg PO DAILY loratadine 10 mg tablet 10 mg PO DAILY PRN (Reason: allergies) ezetimibe 10 mg tablet 10 mg PO DAILY sevelamer carbonate 800 mg tablet 800 mg PO TIDM cholecalciferol (vitamin D3) 50 mcg (2,000 unit) tablet 50 mcg PO DAILY Prolia 60 mg/mL syringe 60 mg SUBCUT Q6M melatonin 10 mg capsule 10 mg PO HS ascorbic acid (vitamin C) 500 mg capsule 500 mg PO DAILY RenaPlex-D 800 mcg-12.5 mg -2,000 unit tablet 1 tab PO DAILY docusate sodium [Colace] 100 mg Capsule 100 mg PO DAILY PRN (Reason: Constipation) acetaminophen 325 mg Tablet 650 mg PO Q4H PRN (Reason: fever or pain) Qty: 0 0RF sennosides [Senokot] 8.6 mg Tablet 17.2 mg PO BID Qty: 0 0RF Discharge Orders: Discharge Order (Routine); Ordered 05/17/23 Ordered By: Del Rios Admission Data Admit Date/Time: 05/06/23 18:18 Attending Provider: Del Rios Admit Provider: Hermilo Mayfield Primary Care Provider: Quyen Salazar Other Providers: Quyen Salazar; Hermilo Mayfield; Yong Dias; Senthil Starkey; Vincent Richardson; Alexsander Campbell Coding Diagnoses Diabetic infection of left foot E11.628; L08.9 Peripheral arterial disease I73.9 Anemia D64.9 ESRD (end stage renal disease) on dialysis N18.6; Z99.2 DM II (diabetes mellitus, type II), controlled E11.9 CHF (congestive heart failure) I50.9 UTI (urinary tract infection) N39.0
[2023-05-18] MEDS ORDERED: EPOETIN ALFA 10,000 UNITS/ML VIAL IV ONE (09:00)
== END 2023-05-17 17:10 | DRG 239 ==
LOC: ED 12:56 → 2W 18:18 → SUATTDRO 18:18 → 2W 21:23

== ENCOUNTER 2023-06-07 15:16 | Inpatient (IN) ==
--- NOTE | 2023-06-07 16:04 | ED Triage Note ---
Date of Service June 07, 2023 Provider in Triage Author: Chele Zuniga History of Present Illness This patient was briefly evaluated while in triage. An abbreviated physical exam was performed. This patient is a 63-year-old Female who presents to the ED for evaluation of an illness. The father reports that she slept all day yesterday. She was awake that he had to feed her and provide her drinks because she kept dropping all of her food. Patient was recently admitted to [facility], and was discharged on 05/31. After having a left lower extremity amputation by Dr. Richardson. Physical Exam CONSTITUTIONAL: Healthy and well nourished. Alert and oriented X 3. GCS 15. HEENT: No scleral icterus or conjunctival injection. RESPIRATORY: Clear to auscultation bilaterally with no wheezing, crackles, rhonchi or stridor. CARDIOVASCULAR: A bradycardic rhythm without obvious murmurs, rubs or gallops. GASTROINTESTINAL: Bowel sounds present in all quadrants. MUSCULOSKELETAL: Left lower extremity was not evaluated, with the reporting that the surgical wound looks well without redness, swelling or drainage. INTEGUMENTARY: No rash or other significant dermatologic conditions noted. HEMATOLOGIC: No ecchymosis or petechiae. PSYCHIATRIC: Positive affect. NEUROLOGIC: No focal neurologic deficits noted. Initial orders for labs and / or imaging were placed and patient was placed in the waiting area until a bed is available. Please see further documentation for the full ED course.
--- NOTE | 2023-06-07 16:43 | XRay Report ---
SINGLE VIEW CHEST CLINICAL HISTORY: Fever FINDINGS: An AP, portable, upright chest radiograph is compared to study dated 05/15/2023. The examina tion is degraded by portable technique and patient rotation. The heart is enlarged noting atheroscle rotic calcification of the thoracic aorta. There is pulmonary vascular congestion. There are small pl eural effusions with left basilar consolidation. No pneumothorax is seen. The skeletal structures are osteopenic. The bony thorax is grossly intact. Cholecystectomy clips are noted in the right upper qu adrant. IMPRESSION: 1. Cardiomegaly with pulmonary vascular congestion. 2. Small pleural effusions with left basilar consolidation. This could represent atelectasis and/or p neumonia. Correlate clinically. Radiographic follow-up to resolution is recommended. ACT 112: Negative or not required by law. Electronically signed by: Frank Jones M.D. 06/07/2023 4:41 PM
--- OUTSIDE RECORDS SUMMARY | 2023-06-07 17:24 | External Medical Summary ---
Author Name Unknown Address Unknown Organization [id number]:[facility] [place] [id number] Laboratory Report Ordering Provider Test Date Status LAURIE ABDI 05/25/2023 07:16:21 Final Observation Date Value Abnormality Reference (Units ) Status WBC, Total 05/25/2023 07:16:21 4.49 4.00-10.8 0 (K/uL) Final RBC 05/25/2023 07:16:21 3.51 3.85-5.15 (M/uL) Final Hemoglobin 05/25/2023 07:16:21 10.9 Below low normal 12 .0-15.3 (g/dL) Final HCT 05/25/2023 07:16:21 33.1 Below low normal 36. 0-45.2 (%) Final MCV 05/25/2023 07:16:21 94.3 81.5-97.5 (fL) Final MCH 05/25/2023 07:16:21 31.1 27.0-34.0 (pg) Final MCHC 05/25/2023 07:16:21 32.9 32.0-36.0 (g/dL) Final RDW 05/25/2023 07:16:21 17.4 11.5-15.5 (%) Final Platelets 05/25/2023 07:16:21 110 Below low normal 140 -400 (K/uL) Final MPV 05/25/2023 07:16:21 12.1 6.6-11.1 ( fL) Final Performing Location [facility] [place] [address]
--- OUTSIDE RECORDS SUMMARY | 2023-06-07 17:24 | External Medical Summary ---
Author Name Unknown Address Unknown Organization [id number]:[facility] [place] [address] Laboratory Report Ordering Provider Test Date Status LAURIE ABDI 05/18/2023 07:00:52 Final Observation Date Value Abnormality Reference (Units ) Status BUN 05/18/2023 07:00:52 18 6-20 (mg/dL) Final Creatinine 05/18/2023 07:00:52 3.6 Above high normal 0.5-1.0 (mg/dL) Final Glomerular filtration rate/1.73 sq M.predicted [Volume Rate/Area] in Serum, Plasma or Blood by Creatinine-based formula (CKD-EPI) 05/18/2023 07:00:52 14 Below low normal >=60 (mL/min) Final eGFR is calculated based on the CKD-EPI 2020 equation SODIUM 05/18/2023 07:00:52 128 Below low normal 135 -146 (mmol/L) Final Potassium 05/18/2023 07:00:52 4.0 3.5-5.1 (m mol/L) Final Cl 05/18/2023 07:00:52 92 Below low normal 98- 107 (mmol/L) Final CO2 05/18/2023 07:00:52 25 22-32 (mmo l/L) Final Anion gap 05/18/2023 07:00:52 11 7-15 (mmol /L) Final Glucose 05/18/2023 07:00:52 90 70-120 (mg /dL) Final Calcium 05/18/2023 07:00:52 7.9 Below low normal 8.4 -10.2 (mg/dL) Final Performing Location [facility] [place] [address]
--- OUTSIDE RECORDS SUMMARY | 2023-06-07 17:24 | External Medical Summary ---
Author Name Unknown Address Unknown Organization [id number]:[facility] [place] [address] Laboratory Report Ordering Provider Test Date Status LAURIE ABDI 05/26/2023 06:20:00 Final Observation Date Value Abnormality Reference (Units ) Status WBC, Total 05/26/2023 06:20:00 4.30 4.00-10.8 0 (K/uL) Final RBC 05/26/2023 06:20:00 3.47 3.85-5.15 (M/uL) Final Hemoglobin 05/26/2023 06:20:00 11.0 Below low normal 12 .0-15.3 (g/dL) Final HCT 05/26/2023 06:20:00 32.8 Below low normal 36. 0-45.2 (%) Final MCV 05/26/2023 06:20:00 94.5 81.5-97.5 (fL) Final MCH 05/26/2023 06:20:00 31.7 27.0-34.0 (pg) Final MCHC 05/26/2023 06:20:00 33.5 32.0-36.0 (g/dL) Final RDW 05/26/2023 06:20:00 17.7 11.5-15.5 (%) Final Platelets 05/26/2023 06:20:00 111 Below low normal 140 -400 (K/uL) Final MPV 05/26/2023 06:20:00 12.4 6.6-11.1 ( fL) Final Performing Location [facility] [place] [address]
--- OUTSIDE RECORDS SUMMARY | 2023-06-07 17:24 | External Medical Summary ---
Author Name Unknown Address Unknown Organization K01:[facility] [address] [place] [address] Laboratory Report Ordering Provider Test Date Status JONAS KLEIN 05/18/2023 07:00:52 Final Observation Date Value Abnormality Reference (Units ) Status Hep B surface Ag 05/18/2023 07:00:52 Negative Neg ative Final Performing Location [facility] [address] [place] [address]
--- OUTSIDE RECORDS SUMMARY | 2023-06-07 17:24 | External Medical Summary ---
Author Name Unknown Address Unknown Organization K01:[facility] [place] [place] [address] [place] [address] Laboratory Report Ordering Provider Test Date Status JONAS KLEIN 05/18/2023 07:00:52 Final Observation Date Value Abnormality Reference (Units) Status Hepatitis B virus surface Ab [Units/volume] in Serum or Plasma by Immunoassay 05/18/2023 07:00:52 367.0 (mIU/mL) Final Hepatitis B virus surface Ab [Presence] in Serum by Immunoassay 05/18/2023 07:00:52 Positive Final HEPATITIS B SURFACE ANTIBODY, INTERPRETATION 05/18/2023 07:00:52 Immune to Hepatitis B Virus Final POSITIVE: >=11.5 mIU/mL
INDETERMINATE: 8.5-<11.5 mIU/mL
NEGATIVE: <8.5 mIU/mL Performing Location [facility] [place] [facility] [address] [place] [address]
--- OUTSIDE RECORDS SUMMARY | 2023-06-07 17:24 | External Medical Summary ---
Author Name Unknown Address Unknown Organization [id number]:[facility] [place] [address] Laboratory Report Ordering Provider Test Date Status LAURIE ABDI 05/18/2023 07:00:52 Final Observation Date Value Abnormality Reference (Units ) Status WBC, Total 05/18/2023 07:00:52 4.58 4.00-10.8 0 (K/uL) Final RBC 05/18/2023 07:00:52 3.37 3.85-5.15 (M/uL) Final Hemoglobin 05/18/2023 07:00:52 10.6 Below low normal 12 .0-15.3 (g/dL) Final HCT 05/18/2023 07:00:52 32.9 Below low normal 36. 0-45.2 (%) Final MCV 05/18/2023 07:00:52 97.6 81.5-97.5 (fL) Final MCH 05/18/2023 07:00:52 31.5 27.0-34.0 (pg) Final MCHC 05/18/2023 07:00:52 32.2 32.0-36.0 (g/dL) Final RDW 05/18/2023 07:00:52 18.7 11.5-15.5 (%) Final Platelets 05/18/2023 07:00:52 219 140-400 (K /uL) Final MPV 05/18/2023 07:00:52 11.4 6.6-11.1 ( fL) Final Performing Location [facility] [place] [address]
--- OUTSIDE RECORDS SUMMARY | 2023-06-07 17:24 | External Medical Summary ---
Author Name Unknown Address Unknown Organization K09:[facility] [place] [address] Laboratory Report Ordering Provider Test Date Status LAURIE ABDI 05/25/2023 07:16:21 Final Observation Date Value Abnormality Reference (Units ) Status BUN 05/25/2023 07:16:21 25 Above high normal 6-20 (mg/dL) Final Creatinine 05/25/2023 07:16:21 3.0 Above high normal 0.5-1.0 (mg/dL) Final Glomerular filtration rate/1.73 sq M.predicted [Volume Rate/Area] in Serum, Plasma or Blood by Creatinine-based formula (CKD-EPI) 05/25/2023 07:16:21 17 Below low normal >=60 (mL/min) Final eGFR is calculated based on the CKD-EPI 2020 equation SODIUM 05/25/2023 07:16:21 122 Below low normal 135 -146 (mmol/L) Final Potassium 05/25/2023 07:16:21 4.5 3.5-5.1 (m mol/L) Final Cl 05/25/2023 07:16:21 86 Below low normal 98- 107 (mmol/L) Final CO2 05/25/2023 07:16:21 27 22-32 (mmo l/L) Final Anion gap 05/25/2023 07:16:21 9 7-15 (mmol /L) Final Glucose 05/25/2023 07:16:21 55 Below low normal 70- 120 (mg/dL) Final Calcium 05/25/2023 07:16:21 7.8 Below low normal 8.4 -10.2 (mg/dL) Final Performing Location [facility] [place] [address]
[2023-06-07 19:27] LABS: Alanine Aminotransferase 20 U/L (7-52); Albumin Globulin Ratio 0.6 (0.9-2); Albumin Level 2.3 gm/dl (3.4-5.0); Alkaline Phosphatase 132 U/L (34-104); Anion Gap 8 (3-11); Aspartate Aminotransferase 54 U/L (13-39); BUN Creatinine Ratio 10.8 (10-20); Bilirubin,Total 0.6 mg/dl (0.2-1.0); Blood Urea Nitrogen 48 mg/dl (6-23); Calcium 8.6 mg/dl (8.6-10.3); Carbon Dioxide 30 mmol/L (21-32); Chloride 96 mmol/L (98-107); Est GFR (African American) 11.5 ml/min; Est GFR (Non-African American) 9.9 ml/min; Globulin 3.7 gm/dl (2.5-4.0); Glucose 93 mg/dl (70-99(Fasting)); Potassium 5.4 mmol/L (3.5-5.1); Sodium 134 mmol/L (136-145)
[2023-06-07 19:33] LABS: Basophils # (auto) 0.01 K/uL (0.00-0.20); Basophils % (auto) 0.2 %; Hematocrit (blood only) 36.6 % (37.0-47.0); Hemoglobin 12.1 g/dl (12.0-16.0); Immature Granulocytes # (auto) 0.01 K/uL (0.01-0.20); Immature Granulocytes % (auto) 0.2 %; Lymphocytes # (auto) 1.04 K/uL (1.20-3.40); Lymphocytes % (auto) 18.4 %; Mean Corpuscular Hemoglobin 31.9 pg (25.0-34.0); Mean Corpuscular Hgb Conc 33.1 g/dL (32.0-36.0); Mean Corpuscular Volume 96.6 fL (80.0-100.0); Mean Platelet Volume 12.2 fL (9.4-12.4); Monocytes # (auto) 0.17 K/uL (0.11-0.59); Neutrophils # (auto) 4.43 K/uL (1.40-6.50); Neutrophils % (auto) 78.2 %; Platelet Count 83 K/uL (130-400); Platelet Estimate Decreased (Normal); RDW Coefficient of Variation 18.2 % (11.5-14.5); Red Blood Count 3.79 M/uL (4.20-5.40); White Blood Count 5.66 K/ul (4.8-10.8)
[2023-06-07 19:47] LABS: Troponin I High Sensitivity 68.4 pg/ml (0-14)
[2023-06-07 20:10] LABS: INR 1.2 (0.9-1.1)
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
[2023-06-07] MEDS ORDERED: CEFEPIME 2,000 MG/20 ML VIAL IV STA (21:13)
[2023-06-07 21:44] LABS: Troponin I High Sensitivity 66.2 pg/ml (0-14)
--- NOTE | 2023-06-07 21:58 | History & Physical Report ---
Date of Service June 07, 2023 Assessment & Plan (1) Influenza A: Plan: 63yo female presenting from home with complaint of severe generalized weakness, fatigue as well as cough and chest congestion. Found to have Influenza A. Patient presently afebrile, HD stable, no respiratory distress. -Admit to medical -Maintain isolation precautions -Supportive care - Tylenol PRN, Robitussin. Tamiflu is not recommended in patient's with ESRD on HD -PT/OT evaluations appreciated. Hopefully patient's acute weakness is due to her Influenza A infection and she will be able to return home (2) Left lower lobe pneumonia: Plan: Concern for bacterial PNA as well given CXR finding and elevation of procalcitonin -Follow cultures -Antibiotic coverage with Ceftriaxone and Azithromycin -Tylenol, Robitussin as needed (3) ESRD on hemodialysis: Plan: Chronic. Patient with LUE AV fistula with palpable thrill. She does appear to be slightly volume overloaded today as evidenced by trace bilateral pleural effusions and increased edema. Electrolytes with elevation of K to 5.4. She still does make urine. -Nephrology consultation appreciated. Patient will likely receive HD tomorrow -Continue home medications Renagel -Continue Calcitriol -Avoid nephrotoxic agents. Renal dosing where needed (4) HTN (hypertension): Plan: Blood pressure elevated in the ER. Patient has not taken her medications today. She was given Hydralazine 10mg PO x 1 and her Amlodipine with improvement -Continue Metoprolol -Continue Lisinopril -Continue Clonidine. Will give additional dose of this as needed if her pressure remains high. -Continue Isosorbide -Continue Amlodipine -Monitor (5) PAD (peripheral artery disease): Plan: Chronic. Stable -Continue ASA and Plavix -Continue Atorvastatin and Zetia -Wound care to post-operative site History of Present Illness Chief Complaint: weakness, fatigue, inability to care for self Primary Care Provider: KEN Rice Becca is a pleasant 63yo female with multiple medical comorbidities including ESRD on HD M/W/F (last HD on 06/05/23), PAD, HTN, HLP, DM and CAD. Patient was admitted to [facility] from 05/06/23 - 05/17/23 after presenting with malodorous discharge from the left foot. She had a left BKA performed by Dr. Richardson on 05/13/23. She was discharged to [facility] on 05/17/23. She reports that things went fairly well at rehab and she felt that she was getting stronger. She returned home on 05/31/23 and has since been declining. She is unable to care for herself. Her reports that over the last two days she has been very weak and tired. She slept most of the day yesterday and her had to feed her. Today she was too weak to hold a spoon. She also lost her balance today and fell forward striking her face. She reports ongoing pain in the left leg which is stable and unchanged. No increased pain, redness or drainage from the surgical site. She does report some chest congestion as well as cough with sputum production, poor appetite, fatigue. She denies fever, chills, shortness of breath, nausea, vomiting or diarrhea. In the ER she is afebrile, HD stable ER Course: Hydralazine 10mg po Amlodipine 10mg po Cefepime 2gm IV Allergies Allergy/AdvReac Type Severity Reaction Status Date / Time morphine Allergy Severe Hallucinati Verified 06/07/23 22:58 ng codeine Allergy Intermediate Redness of Verified 06/07/23 22:58 Skin prednisone Allergy Intermediate Itching Verified 06/07/23 22:58 Home Medications Medication Instructions Recorded Confirmed Type albuterol sulfate 90 mcg/actuation 1 puff inhalation QID PRN bad cough 11/12/22 06/07/23 History aerosol inhaler allopurinol 100 mg tablet 100 mg PO DAILY 11/12/22 06/07/23 History ascorbic acid (vitamin C) 500 mg 500 mg PO DAILY 11/12/22 06/07/23 History capsule aspirin 81 mg chewable tablet 81 mg PO DAILY 11/12/22 06/07/23 History atorvastatin 40 mg tablet (Lipitor) 40 mg PO HS 11/12/22 06/07/23 History cholecalciferol (vitamin D3) 50 50 mcg PO DAILY 11/12/22 06/07/23 History mcg (2,000 unit) tablet clonidine HCl 0.1 mg tablet 0.1 mg PO DAILY 11/12/22 06/07/23 History clopidogrel 75 mg tablet 75 mg PO DAILY 11/12/22 06/07/23 History denosumab 60 mg/mL subcutaneous 60 mg subcut Q6M 11/12/22 06/07/23 History syringe (Prolia) docusate sodium 100 mg capsule 100 mg PO DAILY PRN Constipation 11/12/22 06/07/23 History (Colace) ezetimibe 10 mg tablet 10 mg PO DAILY 11/12/22 06/07/23 History furosemide 40 mg tablet (Lasix) 40 mg PO DAILY 11/12/22 06/07/23 History isosorbide mononitrate 30 mg 30 mg PO HS 11/12/22 06/07/23 History tablet,extended release 24 hr levothyroxine 125 mcg tablet 125 mcg PO QAM 11/12/22 06/07/23 History lisinopril 40 mg tablet (Zestril) 40 mg PO DAILY 11/12/22 06/07/23 History loratadine 10 mg tablet 10 mg PO DAILY PRN allergies 11/12/22 06/07/23 History melatonin 10 mg capsule 10 mg PO HS 11/12/22 06/07/23 History metoprolol tartrate 50 mg tablet 25 mg PO AMPM 11/12/22 06/07/23 History nitroglycerin 0.4 mg sublingual 0.4 mg sublingual DIRECTED PRN 11/12/22 06/07/23 History tablet Chest Pain sevelamer carbonate 800 mg tablet 800 mg PO TIDM 11/12/22 06/07/23 History vit B,C-folic ac 800 mcg-zinc 12.5 1 tab PO DAILY 11/12/22 06/07/23 History mg-selen-D3 2,000 unit-vit E tablet (RenaPlex-D) acetaminophen 325 mg tablet 650 mg (2 x 325 mg) PO Q4H PRN 01/05/23 06/07/23 Rx fever or pain #0 tabs sennosides 8.6 mg tablet (Senokot) 17.2 mg (2 x 8.6 mg) PO BID #0 tabs 01/05/23 06/07/23 Rx calcium carbonate 500 mg-vitamin 1 tab PO BID 03/14/23 06/07/23 History D3 10 mcg (400 unit) tablet (Oyster Shell Calcium-Vitamin D3) amlodipine 10 mg tablet 10 mg PO DAILY #30 tabs 04/07/23 06/07/23 Rx calcitriol 0.25 mcg capsule 0.25 mcg PO QAM #30 caps 04/07/23 06/07/23 Rx heparin, porcine (PF) 5,000 0 unit subcut DIRECTED 06/07/23 06/07/23 History unit/0.5 mL injection syringe meloxicam 15 mg tablet 15 mg PO DAILY 06/07/23 06/07/23 History omeprazole 40 mg capsule,delayed 40 mg PO DAILY 06/07/23 06/07/23 History release oxycodone 5 mg tablet 5 mg PO Q6 PRN Pain 06/07/23 06/07/23 History pregabalin 75 mg capsule 75 mg PO HS 06/07/23 06/07/23 History Past Med/Surg History Medical History Anemia due to chronic kidney disease Depression Open wound of left foot PAD (peripheral artery disease) ESRD (end stage renal disease) on dialysis HD . Follows with Dr. Mike Espinal CHF (congestive heart failure) Osteomyelitis of left foot Hypothyroidism Anemia Tobacco abuse Hyperlipidemia HTN (hypertension) CAD (coronary artery disease) DM II (diabetes mellitus, type II), controlled Surgical History S/P drug eluting coronary stent placement Social History Smoking Status: Never smoker Tobacco Type: Cigarettes Cigarettes Per Day: 5; Second Hand Exposure: No; Do You Dip or Chew Tobacco: No; Hx Alcohol Use: No Hx Substance Use: No Preferred Language: Vietnamese Communication Ability: Effective Commissioned Police Officer Required: No Beliefs That Will Affect Care: Jew Current Living Situation: Spouse and Family Feels Safe at Home: Yes Assistive Devices: Walker and Wheelchair Review of Systems Review of Systems: All systems reviewed & are unremarkable except as noted in HPI & below Physical Exam Physical Exam: General: patient chronically ill in appearance, NAD Skin: ecchymosis and areas of scabbing noted on bilateral hands and forearms HEENT: NC/AT, PERRL, EOMI, anicteric sclera, conjunctiva without injection, external ear normal to inspection and nontender, nares patent, moist mucus membranes, dentition intact, no oropharyngeal lesions, neck supple, trachea midline, no LAD, no thyromegaly, no JVD Heart: +S1/S2, regular, bradycardic, no m/r/g Lungs: equal air entry bilaterally, crackles present in bilateral bases Abd: +BS, soft, NT/ND, no masses/organomegaly/ascites Ext: 1+ edema of RLE, s/p left BKA with well appearing surgical site, no bleeding or infection Neuro: nonfocal, patient AA&O x 4, speech intact, no facial droop, moving all extremities on command with equal strength 5/5 Results & Data Results & Data Vital Signs (Past 12 Hours) Vital Signs Temp Pulse Pulse Resp BP BP Pulse Ox 06/07/23 21:42 57 L 14 187/113 H 96 06/07/23 20:35 49 L 06/07/23 16:00 36.3 C L 48 L 19 161/60 H 95 O2 Del Method 06/07/23 21:42 Room Air 06/07/23 20:35 06/07/23 16:00 Room Air Laboratory Results Laboratory Results WBC 5.66 K/ul (4.8-10.8) 06/07/23 18:56 RBC 3.79 M/uL (4.20-5.40) L 06/07/23 18:56 Hgb 12.1 g/dl (12.0-16.0) 06/07/23 18:56 Hct 36.6 % (37.0-47.0) L 06/07/23 18:56 MCV 96.6 fL (80.0-100.0) 06/07/23 18:56 MCH 31.9 pg (25.0-34.0) 06/07/23 18:56 MCHC 33.1 g/dL (32.0-36.0) 06/07/23 18:56 RDW Std Deviation 64.0 fL (36.4-46.3) H 06/07/23 18:56 RDW Coeff of Evette 18.2 % (11.5-14.5) H 06/07/23 18:56 Plt Count 83 K/uL (130-400) L 06/07/23 18:56 MPV 12.2 fL (9.4-12.4) 06/07/23 18:56 Immature Gran % (Auto) 0.2 % 06/07/23 18:56 Neut % (Auto) 78.2 % 06/07/23 18:56 Lymph % (Auto) 18.4 % 06/07/23 18:56 [place] % (Auto) 3.0 % 06/07/23 18:56 Eos % (Auto) 0.0 % 06/07/23 18:56 Baso % (Auto) 0.2 % 06/07/23 18:56 Neut # (Auto) 4.43 K/uL (1.40-6.50) 06/07/23 18:56 Lymph # (Auto) 1.04 K/uL (1.20-3.40) L 06/07/23 18:56 [place] # (Auto) 0.17 K/uL (0.11-0.59) 06/07/23 18:56 Eos # (Auto) 0.00 K/uL (0.00-0.50) 06/07/23 18:56 Baso # (Auto) 0.01 K/uL (0.00-0.20) 06/07/23 18:56 Immature Gran # (Auto) 0.01 K/uL (0.01-0.20) 06/07/23 18:56 Platelet Estimate Decreased (Normal) L 06/07/23 18:56 PT 13.0 Seconds (9.0-12.0) H 06/07/23 19:24 INR 1.2 (0.9-1.1) H 06/07/23 19:24 Sodium 134 mmol/L (136-145) L 06/07/23 18:56 Potassium 5.4 mmol/L (3.5-5.1) H 06/07/23 18:56 Chloride 96 mmol/L (98-107) L 06/07/23 18:56 Carbon Dioxide 30 mmol/L (21-32) 06/07/23 18:56 Anion Gap 8 (3-11) 06/07/23 18:56 BUN 48 mg/dl (6-23) H 06/07/23 18:56 Creatinine 4.45 mg/dl (0.6-1.2) H 06/07/23 18:56 Est Cr Clr Drug Dosing Not Reportable 06/07/23 18:56 Est GFR ( Amer) 11.5 ml/min 06/07/23 18:56 Est GFR (Non-Af Amer) 9.9 ml/min 06/07/23 18:56 BUN/Creatinine Ratio 10.8 (10-20) 06/07/23 18:56 Glucose 93 mg/dl (70-99(Fasting)) 06/07/23 18:56 Lactate 1.2 mmol/L (0.4-2.0) 06/07/23 19:24 Calcium 8.6 mg/dl (8.6-10.3) 06/07/23 18:56 Total Bilirubin 0.6 mg/dl (0.2-1.0) 06/07/23 18:56 AST 54 U/L (13-39) H 06/07/23 18:56 ALT 20 U/L (7-52) 06/07/23 18:56 Alkaline Phosphatase 132 U/L (34-104) H 06/07/23 18:56 Troponin I High Sens 66.2 pg/ml (0-14) H* 06/07/23 21:04 Total Protein 6.0 gm/dl (6.0-8.3) 06/07/23 18:56 Albumin 2.3 gm/dl (3.4-5.0) L 06/07/23 18:56 Globulin 3.7 gm/dl (2.5-4.0) 06/07/23 18:56 Albumin/Globulin Ratio 0.6 (0.9-2) L 06/07/23 18:56 Procalcitonin 1.68 ng/ml (0-0.5) H 06/07/23 18:56 Nasal Influ A H1 2008 PCR DETECTED (NotDetected) A* 06/07/23 21:32 Nasal Screen MRSA (PCR) Negative (Negative) 06/07/23 21:32 Adenovirus (PCR) Not Detected (NotDetected) 06/07/23 21:32 B. pertussis DNA (PCR) Not Detected (NotDetected) 06/07/23 21:32 B.parapertussis DNA PCR Not Detected (NotDetected) 06/07/23 21:32 C. pneumoniae DNA (PCR) Not Detected (NotDetected) 06/07/23 21:32 Coronavirus OC43 (PCR) Not Detected (NotDetected) 06/07/23 21:32 Coronavirus HKU1 (PCR) Not Detected (NotDetected) 06/07/23 21:32 Coronavirus 229E (PCR) Not Detected (NotDetected) 06/07/23 21:32 SARS-CoV-2 (PCR) Not Detected (NotDetected) 06/07/23 21:32 Coronavirus NL63 (PCR) Not Detected (NotDetected) 06/07/23 21:32 Human Metapneumovir PCR Not Detected (NotDetected) 06/07/23 21:32 Influenza Type B (PCR) Not Detected (NotDetected) 06/07/23 21:32 M. pneumoniae (PCR) Not Detected (NotDetected) 06/07/23 21:32 Parainfluenza 1 (PCR) Not Detected (NotDetected) 06/07/23 21:32 Parainfluenza 2 (PCR) Not Detected (NotDetected) 06/07/23 21:32 Parainfluenza 3 (PCR) Not Detected (NotDetected) 06/07/23 21:32 Parainfluenza 4 (PCR) Not Detected (NotDetected) 06/07/23 21:32 RSV (PCR) Not Detected (NotDetected) 06/07/23 21:32 Entero/Rhino (PCR) Not Detected (NotDetected) 06/07/23 21:32 Impressions Chest X-Ray 06/07/23 16:04 SINGLE VIEW CHEST CLINICAL HISTORY: Fever FINDINGS: An AP, portable, upright chest radiograph is compared to study dated 05/15/2023. The examination is degraded by portable technique and patient rotation. The heart is enlarged noting atherosclerotic calcification of the thoracic aorta. There is pulmonary vascular congestion. There are small pleural effusions with left basilar consolidation. No pneumothorax is seen. The skeletal structures are osteopenic. The bony thorax is grossly intact. Cholecystectomy clips are noted in the right upper quadrant. IMPRESSION: 1. Cardiomegaly with pulmonary vascular congestion. 2. Small pleural effusions with left basilar consolidation. This could represent atelectasis and/or pneumonia. Correlate clinically. Radiographic follow-up to resolution is recommended. ACT 112: Negative or not required by law. Electronically signed by: Frank Jones M.D. 06/07/2023 4:41 PM Venous Doppler Study 06/07/23 16:04 Exam(s): US VENOUS RIGHT LOWER EXTREMITY EXAM: US Duplex Right Lower Extremity Veins CLINICAL HISTORY: RLE pain s/p amputation. TECHNIQUE: Real-time duplex ultrasound scan of the right lower extremity veins integrating B-mode two-dimensional vascular structure, Doppler spectral analysis, color flow Doppler imaging and compression. COMPARISON: No relevant prior studies available. FINDINGS: Deep veins: Unremarkable. No DVT in the visualized common femoral, femoral, proximal deep femoral or popliteal veins. The veins demonstrate normal color flow, are normally compressible, with normal phasic flow and/or augmentation response. Evaluation of the interrogated calf veins is limited. Superficial veins: Unremarkable. No thrombus in the saphenofemoral junction. Soft tissues: Subcutaneous edema noted at the right calf. No loculated fluid collection. No popliteal cyst. IMPRESSION: No evidence for deep vein thrombosis involving the right lower extremity. Subcutaneous edema noted at the right calf. Electronically signed by: Klever Parry MD 06/08/23 00:28 AM PG Care Time/CCT Total # of Minutes Spent Total Time Spent with Patient: Total time spent is greater than 50% in coordination of care (as documented) at patient's floor/unit and/or counseling patient: Coding Level of Care Code 04334 INT INP/OBS CARE MIN Diagnoses Influenza A J10.1 Left lower lobe pneumonia J18.9 Pneumonia type: due to unspecified organism ESRD on hemodialysis N18.6; Z99.2 HTN (hypertension) I10 PAD (peripheral artery disease) I73.9 (2) Left lower lobe pneumonia Pneumonia type: due to unspecified organism Qualified Code(s): J18.9 - Pneumonia, unspecified organism
[2023-06-07 22:32] LABS: Adenovirus PCR Not Detected (NotDetected); Bordetella parapertussis PCR Not Detected (NotDetected); Bordetella pertussis PCR Not Detected (NotDetected); Chlamydia pneumoniae PCR Not Detected (NotDetected); Coronavirus 229E PCR Not Detected (NotDetected); Coronavirus CoV-2 (COVID19)PCR Not Detected (NotDetected); Coronavirus HKU1 PCR Not Detected (NotDetected); Coronavirus NL63 PCR Not Detected (NotDetected); Coronavirus OC43PCR Not Detected (NotDetected); Human Metapneumovirus PCR Not Detected (NotDetected); Influenza B PCR Not Detected (NotDetected); Mycoplasma pneumoniae PCR Not Detected (NotDetected); Parainfluenza Virus 1 PCR Not Detected (NotDetected); Parainfluenza Virus 2 PCR Not Detected (NotDetected); Parainfluenza Virus 3 PCR Not Detected (NotDetected); Parainfluenza Virus 4 PCR Not Detected (NotDetected); Respiratory Syncytial VirusPCR Not Detected (NotDetected); Rhinovirus/Enterovirus PCR Not Detected (NotDetected)
[2023-06-07 22:38] LABS: Influenza A (H1 2009) PCR DETECTED (NotDetected)
[2023-06-07] MEDS ORDERED: amLODIPine BESYLATE 5 MG TAB PO ONE (22:47)
[2023-06-07] MEDS ORDERED: hydrALAZINE 10 MG TAB PO STA (22:48)
--- NOTE | 2023-06-08 00:28 | Ultrasound Report ---
Exam(s): US VENOUS RIGHT LOWER EXTREMITY EXAM: US Duplex Right Lower Extremity Veins CLINICAL HISTORY: RLE pain s/p amputation. TECHNIQUE: Real-time duplex ultrasound scan of the right lower extremity veins integrating B-mode two-dimensional vascular structure, Doppler spectral analysis, color flow Doppler imaging and compression. COMPARISON: No relevant prior studies available. FINDINGS: Deep veins: Unremarkable. No DVT in the visualized common femoral, femoral, proximal deep femoral or popliteal veins. The veins demonstrate normal color flow, are normally compressible, with normal phasic flow and/or augmentation response. Evaluation of the interrogated calf veins is limited. Superficial veins: Unremarkable. No thrombus in the saphenofemoral junction. Soft tissues: Subcutaneous edema noted at the right calf. No loculated fluid collection. No popliteal cyst. IMPRESSION: No evidence for deep vein thrombosis involving the right lower extremity. Subcutaneous edema noted at the right calf. Electronically signed by: Klever Parry MD 06/08/23 00:28 AM
[2023-06-08] MEDS ORDERED: AZITHROMYCIN 500 MG in DEXTROSE 5% 250 ML IV STA (00:41)
[2023-06-08] MEDS ORDERED: ONDANSETRON INJ 2 MG/ML 2 ML VIAL IV PRN (00:41)
[2023-06-08] MEDS ORDERED: LORATADINE 10 MG TAB PO PRN (00:51)
[2023-06-08] MEDS ORDERED: DOCUSATE SODIUM 100 MG CAP PO PRN (00:51)
[2023-06-08] MEDS ORDERED: ALBUTEROL HFA 8 GM INHALER INH PRN (00:51)
[2023-06-08] MEDS: Patient's HEIGHT &/or WEIGHT Needed SCH ×2 (00:56→00:58)
[2023-06-08] MEDS ORDERED: guaiFENesin/DEXTROM SYRUP 200MG/20MG 10ML UDC PO PRN (00:59)
[2023-06-08 01:03] LABS: Magnesium 2.3 mg/dl (1.7-2.4)
[2023-06-08] MEDS ORDERED: DEXTROSE 5% IV ONE (02:00)
[2023-06-08] MEDS ORDERED: CEFTRIAXONE SODIUM IV ONE (02:00)
[2023-06-08] MEDS ORDERED: MINI B IV ONE (02:00)
[2023-06-08] MEDS: oxyCODONE HCL IR 5 MG TAB (IMMEDIATE RELEASE) PO PRN ×2 (02:57→21:17)
[2023-06-08] MEDS: ACETAMINOPHEN 500 MG TAB PO SCH ×3 (05:09→21:17)
[2023-06-08] MEDS: LEVOTHYROXINE SODIUM 125 MCG TABLET PO SCH (05:09)
[2023-06-08 07:01] LABS: Albumin Level 1.8 gm/dl (3.4-5.0); Bilirubin Direct 0.1 mg/dl (0-0.2); Bilirubin,Total 0.4 mg/dl (0.2-1.0); Calcium 7.7 mg/dl (8.6-10.3); Potassium 4.9 mmol/L (3.5-5.1)
[2023-06-08 07:09] LABS: Hematocrit (blood only) 24.6 % (37.0-47.0); Mean Corpuscular Hemoglobin 31.1 pg (25.0-34.0); Mean Corpuscular Hgb Conc 32.5 g/dL (32.0-36.0); Mean Corpuscular Volume 95.7 fL (80.0-100.0); Mean Platelet Volume 11.6 fL (9.4-12.4); Platelet Count 59 K/uL (130-400); RDW Coefficient of Variation 16.4 % (11.5-14.5); RDW Standard Deviation 57.8 fL (36.4-46.3); Red Blood Count 2.57 M/uL (4.20-5.40); White Blood Count 4.96 K/ul (4.8-10.8)
[2023-06-08 07:18] LABS: BUN Creatinine Ratio 11.5 (10-20); Creatinine Clr Calc Pharmacy 10.6 ml/min; Est GFR (Non-African American) 9.5 ml/min; Total Protein 4.5 gm/dl (6.0-8.3)
[2023-06-08] MEDS: SEVELAMER HCL 800 MG TABLET PO SCH ×3 (08:02→17:03)
--- NOTE | 2023-06-08 08:13 | Hospitalist Progress Note ---
Date of Service June 08, 2023 Assessment & Plan (1) Influenza A: Plan: 63yo female presenting from home with complaint of severe generalized weakness, fatigue as well as cough and chest congestion. Found to have Influenza A. CXR with possible pneumonia Patient presently afebrile, no respiratory distress. - -Maintain isolation precautions -Supportive care - Tylenol PRN, Robitussin. Tamiflu can be used 30 mg after dialysis sessions With LLL infiltrate on CXR Concern for bacterial PNA as well given CXR finding and elevation of procalcitonin -Follow cultures -Antibiotic coverage with Ceftriaxone and Azithromycin(prior to amputation of leg the patient was being treated with vancomycin for Enterococcus faecium cultures from her foot wounds which are no no longer present since she had a BKA) -Tylenol, Robitussin as needed -PT/OT evaluations appreciated. Hopefully patient's acute weakness is due to her Influenza A infection and she will be able to return home (2) ESRD on hemodialysis: Plan: Chronic. Patient with RUE AV fistula with palpable thrill. -Nephrology consultation appreciated. Patient will likely receive HD Tuesday -Continue home medications Renagel -Continue Calcitriol -Avoid nephrotoxic agents. Renal dosing where needed (3) HTN (hypertension): Plan: Chronic and typially stable Blood pressure elevated in the ER. Patient has not taken her medications -Continue Metoprolol -Continue Lisinopril -Continue Clonidine. -Continue Isosorbide -Continue Amlodipine (4) PAD (peripheral artery disease): Plan: Chronic. Stable -Continue ASA and Plavix -Continue Atorvastatin and Zetia -Underwent BKA by Dr. Richardson 05/13/2023 Admission and Anticipated Discharge Date Admission Date: June 07, 2023 Subjective Patient seen in dialysis she endorses being very fatigued and tired. She has a nonproductive cough Physical Exam Physical Exam: Lungs are diminished at the bases bilaterally but no overt wheezes there are occasional rhonchi that clear Card exam is regular She is a left BKA AV fistulas in the right arm. Results & Data Results & Data Vital Signs (Past 12 Hours) Vital Signs Temp Pulse Pulse Pulse Resp BP Pulse Ox 06/08/23 08:00 97.3 F L 58 L 16 116/65 97 06/08/23 04:05 06/08/23 02:29 97.5 F L 51 L 16 170/64 H 93 06/08/23 00:51 52 L 16 177/100 H 95 06/08/23 00:28 52 L 06/08/23 00:17 181/81 H 06/07/23 23:31 50 L 14 196/77 H 96 06/07/23 21:42 57 L 14 187/113 H 96 06/07/23 20:35 49 L O2 Del Method 06/08/23 08:00 Room Air 06/08/23 04:05 Room Air 06/08/23 02:29 Room Air 06/08/23 00:51 Room Air 06/08/23 00:28 06/08/23 00:17 06/07/23 23:31 Room Air 06/07/23 21:42 Room Air 06/07/23 20:35 Laboratory Results Reviewed CBC reviewed chemistry PG Care Time/CCT Total # of Minutes Spent Total Time Spent with Patient: Total time spent is greater than 50% in coordination of care (as documented) at patient's floor/unit and/or counseling patient: Coding Level of Care Code 68953 SUB INP/OBS CARE 3/50MIN Diagnoses Influenza A J10.1 ESRD on hemodialysis N18.6; Z99.2 HTN (hypertension) I10 PAD (peripheral artery disease) I73.9
[2023-06-08] MEDS ORDERED: MELOXICAM 7.5 MG TAB PO SCH (09:00)
[2023-06-08] MEDS ORDERED: EPOETIN ALFA 20,000 UNITS/ML VIAL IV SCH (09:00)
[2023-06-08] MEDS: METOPROLOL TARTRATE 25 MG TAB PO SCH ×2 (09:16→20:38)
[2023-06-08] MEDS: lisinopril 40 MG TAB PO SCH (09:16)
[2023-06-08] MEDS: cloNIDine HCL 0.1 MG TAB PO SCH (09:16)
[2023-06-08] MEDS: amLODIPine BESYLATE 5 MG TAB PO SCH (09:16)
[2023-06-08] MEDS: ASPIRIN 81 MG CHEW PO SCH (09:17)
[2023-06-08] MEDS: allopurinoL 100 MG TAB PO SCH (09:17)
[2023-06-08] MEDS: CALCITRIOL 0.25 MCG CAPSULE PO SCH (09:18)
[2023-06-08] MEDS: EZETIMIBE 10 MG TAB PO SCH (09:19)
[2023-06-08] MEDS: PANTOprazole 40 MG TAB PO SCH (09:19)
[2023-06-08] MEDS: CLOPIDOGREL BISULFATE 75 MG TAB PO SCH (09:19)
[2023-06-08] MEDS: SENNA 8.6 MG TAB PO SCH ×2 (09:20→20:38)
--- NOTE | 2023-06-08 11:47 | Nephrology Consultation ---
Date of Consultation June 08, 2023 Assessment & Plan (1) ESRD on hemodialysis: (2) Influenza A: (3) Left lower lobe pneumonia: (4) Anemia due to chronic kidney disease: (5) HTN (hypertension): Plan 63-year-old female with end-stage renal disease, on hemodialysis secondary to diabetic nephropathy, chronic diabetic foot ulcer of left foot status post transmetatarsal amputation on 12/30/22, admitted with generalized weakness, failure to thrive, influenza A and left lower lobe pneumonia. Started empirically on Zithromax and ceftriaxone. On admission she was noted to be volume overloaded, potassium was elevated which slightly improved this morning. She is due for dialysis today. --Plan for dialysis today for 3.5 hours with 2K bath. --Right arm nephrology precaution for AV fistula, dose medications for eGFR less than 10 --Epogen 20,000 units with dialysis today. --continue Nephrocaps and Renvela Will follow. Thank you for allowing me to participate in your patient's care. It was a pleasure to see Jacqui. History of Present Illness Reason for Consultation: ESRD Attending Physician: Barrett Rocha MD History of Present Illness Ms Jacqui Hudson is a 63year old female with PMH significant for ESRD on HD MWF , DM II, HLD, CAD S/P PCI and WILLIAM placement , Hypothyroidism, insomnia, admitted to the hospital with generalized weakness, failure to thrive at home, influenza A, left lower lobe pneumonia.Nephrology consult requested for management of hemodialysis while inpatient. EMR records were reviewed in detail during patient's visit. Jacqui presented to ER yesterday from home with generalized weakness and inability to eat or drink and had a fall at home. On admission she was noted to to have influenza A and concern for left lower lobe pneumonia and started on Zithromax and ceftriaxone. Lab was notable for potassium 5.5 and chest x-ray concerning for pulmonary congestion. She was recently admitted from 05/06/23 - 05/17/23 after presenting with malodorous discharge from the left foot with history of left foot osteomyelitis, had a left BKA on 05/13/23 and discharged to [facility] on 05/17/23. Went home on 05/31/23 and she has since been declining. End-stage renal disease secondary to diabetic nephropathy, has been on dialysis for last almost 3 years via right brachiocephalic AV fistula, at [facility] [place] under care of Dr. Mckeon.h/o smoking for 50 years. Lives at home with her and grown-up son and grand children. She reports ongoing pain in the left leg which is stable and unchanged. No increased pain, redness or drainage from the surgical site. Allergies Allergy/AdvReac Type Severity Reaction Status Date / Time morphine Allergy Severe Hallucinati Verified 06/07/23 22:58 ng codeine Allergy Intermediate Redness of Verified 06/07/23 22:58 Skin prednisone Allergy Intermediate Itching Verified 06/07/23 22:58 Home Medications Medication Instructions Recorded Confirmed Type albuterol sulfate 90 mcg/actuation 1 puff inhalation QID PRN bad cough 11/12/22 06/07/23 History aerosol inhaler allopurinol 100 mg tablet 100 mg PO DAILY 11/12/22 06/07/23 History ascorbic acid (vitamin C) 500 mg 500 mg PO DAILY 11/12/22 06/07/23 History capsule aspirin 81 mg chewable tablet 81 mg PO DAILY 11/12/22 06/07/23 History atorvastatin 40 mg tablet (Lipitor) 40 mg PO HS 11/12/22 06/07/23 History cholecalciferol (vitamin D3) 50 50 mcg PO DAILY 11/12/22 06/07/23 History mcg (2,000 unit) tablet clonidine HCl 0.1 mg tablet 0.1 mg PO DAILY 11/12/22 06/07/23 History clopidogrel 75 mg tablet 75 mg PO DAILY 11/12/22 06/07/23 History denosumab 60 mg/mL subcutaneous 60 mg subcut Q6M 11/12/22 06/07/23 History syringe (Prolia) docusate sodium 100 mg capsule 100 mg PO DAILY PRN Constipation 11/12/22 06/07/23 History (Colace) ezetimibe 10 mg tablet 10 mg PO DAILY 11/12/22 06/07/23 History furosemide 40 mg tablet (Lasix) 40 mg PO DAILY 11/12/22 06/07/23 History isosorbide mononitrate 30 mg 30 mg PO HS 11/12/22 06/07/23 History tablet,extended release 24 hr levothyroxine 125 mcg tablet 125 mcg PO QAM 11/12/22 06/07/23 History lisinopril 40 mg tablet (Zestril) 40 mg PO DAILY 11/12/22 06/07/23 History loratadine 10 mg tablet 10 mg PO DAILY PRN allergies 11/12/22 06/07/23 History melatonin 10 mg capsule 10 mg PO HS 11/12/22 06/07/23 History metoprolol tartrate 50 mg tablet 25 mg PO AMPM 11/12/22 06/07/23 History nitroglycerin 0.4 mg sublingual 0.4 mg sublingual DIRECTED PRN 11/12/22 06/07/23 History tablet Chest Pain sevelamer carbonate 800 mg tablet 800 mg PO TIDM 11/12/22 06/07/23 History vit B,C-folic ac 800 mcg-zinc 12.5 1 tab PO DAILY 11/12/22 06/07/23 History mg-selen-D3 2,000 unit-vit E tablet (RenaPlex-D) acetaminophen 325 mg tablet 650 mg (2 x 325 mg) PO Q4H PRN 01/05/23 06/07/23 Rx fever or pain #0 tabs sennosides 8.6 mg tablet (Senokot) 17.2 mg (2 x 8.6 mg) PO BID #0 tabs 01/05/23 06/07/23 Rx calcium carbonate 500 mg-vitamin 1 tab PO BID 03/14/23 06/07/23 History D3 10 mcg (400 unit) tablet (Oyster Shell Calcium-Vitamin D3) amlodipine 10 mg tablet 10 mg PO DAILY #30 tabs 04/07/23 06/07/23 Rx calcitriol 0.25 mcg capsule 0.25 mcg PO QAM #30 caps 04/07/23 06/07/23 Rx heparin, porcine (PF) 5,000 0 unit subcut DIRECTED 06/07/23 06/07/23 History unit/0.5 mL injection syringe meloxicam 15 mg tablet 15 mg PO DAILY 06/07/23 06/07/23 History omeprazole 40 mg capsule,delayed 40 mg PO DAILY 06/07/23 06/07/23 History release oxycodone 5 mg tablet 5 mg PO Q6 PRN Pain 06/07/23 06/07/23 History pregabalin 75 mg capsule 75 mg PO HS 06/07/23 06/07/23 History Patient History Medical History Anemia due to chronic kidney disease Depression Open wound of left foot PAD (peripheral artery disease) ESRD (end stage renal disease) on dialysis HD . Follows with Dr. Mike Espinal CHF (congestive heart failure) Osteomyelitis of left foot Hypothyroidism Anemia Tobacco abuse Hyperlipidemia HTN (hypertension) CAD (coronary artery disease) DM II (diabetes mellitus, type II), controlled Surgical History S/P drug eluting coronary stent placement Social History Smoking Status: Former smoker Tobacco Type: Cigarettes Cigarettes Per Day: 5; Second Hand Exposure: No; Do You Dip or Chew Tobacco: No; Hx Alcohol Use: No Hx Substance Use: No Preferred Language: Kazakh Communication Ability: Effective Avian Keeper Required: No Beliefs That Will Affect Care: None Current Living Situation: Spouse Feels Safe at Home: Yes Assistive Devices: Denture - Upper, Denture - Lower, Glasses and Wheelchair Review of Systems Review of Systems: Detailed review of system was done and pertinent positives and negatives were mentioned above. Physical Exam Constitutional: WD/WN, vitals as above + ill appearing; no acute distress Respiratory: Auscultation: lungs clear to auscultation bilaterally Cardiovascular: Rate/Rhythm: regular rate and regular rhythm Heart Sounds: normal S1 and normal S2 Extremities: + AV fistula (Right brachiocephalic AV fistula thrill and bruit) Musculoskeletal: Left BKA, stump dressing dry Neurologic: no focal motor deficits Psychiatric: Orientation: alert and oriented x 3 Results & Data Vital Signs (Past 12 Hours) Vital Signs Temp Pulse Pulse Pulse Pulse Resp BP 06/08/23 11:36 06/08/23 11:30 69 116/84 06/08/23 11:00 79 130/46 L 06/08/23 10:30 45 L 118/51 L 06/08/23 10:00 47 L 122/44 L 06/08/23 09:36 49 L 123/51 L 06/08/23 09:29 36.4 C L 49 L 06/08/23 08:00 36.3 C L 58 L 16 06/08/23 04:05 06/08/23 02:29 36.4 C L 51 L 16 06/08/23 00:51 52 L 16 06/08/23 00:28 52 L 06/08/23 00:17 BP Pulse Ox O2 Del Method 06/08/23 11:36 Room Air 06/08/23 11:30 06/08/23 11:00 06/08/23 10:30 06/08/23 10:00 06/08/23 09:36 06/08/23 09:29 06/08/23 08:00 116/65 97 Room Air 06/08/23 04:05 Room Air 06/08/23 02:29 170/64 H 93 Room Air 06/08/23 00:51 177/100 H 95 Room Air 06/08/23 00:28 06/08/23 00:17 181/81 H PG Care Time/CCT Total # of Minutes Spent Total Time Spent with Patient: Total time spent is greater than 50% in coordination of care (as documented) at patient's floor/unit and/or counseling patient: Coding Level of Care Code 24341 INT INP/OBS CARE 3/75MIN Diagnoses ESRD on hemodialysis N18.6; Z99.2 Influenza A J10.1 Left lower lobe pneumonia J18.9 Pneumonia type: due to unspecified organism Anemia due to chronic kidney disease N18.9; D63.1 HTN (hypertension) I10 (3) Left lower lobe pneumonia Pneumonia type: due to unspecified organism Qualified Code(s): J18.9 - Pneumonia, unspecified organism
--- NOTE | 2023-06-08 15:24 | Electrocardiogram Report ---
Test Reason : Blood Pressure : / mmHG Vent. Rate : 046 BPM Atrial Rate : 046 BPM P-R Int : 150 ms QRS Dur : 090 ms QT Int : 452 ms P-R-T Axes : 027 005 061 degrees QTc Int : 395 ms Sinus bradycardia Minimal voltage criteria for LVH, may be normal variant Borderline ECG When compared with ECG of 06-MAY-2023 14:48, Vent. rate has decreased BY 26 BPM QT has shortened Confirmed by Alexsander Hill ([id number]) on 06/08/2023 3:24:43 PM Referred By: Christina Alcantar Confirmed By:Lion Hill
[2023-06-08] MEDS: OSELTAMIVIR PHOSPHATE SUSP 30 MG/5 ML UDP PO SCH (18:49)
[2023-06-08] MEDS: ATORVASTATIN 40 MG TAB PO SCH (20:37)
[2023-06-08] MEDS: ISOSORBIDE MONO EXTENDED REL 30 MG TABCR PO SCH (20:37)
[2023-06-08] MEDS: MELATONIN 3 MG TAB PO SCH (20:43)
[2023-06-08] MEDS: PREGABALIN 75 MG CAP PO SCH (20:43)
[2023-06-08] MEDS ORDERED: AZITHROMYCIN 250 MG in DEXTROSE 5% 250 ML IV SCH (23:00)
[2023-06-09] MEDS: cefTRIAXone SODIUM 1,000 MG in DEXTROSE 5 % MINI-B 50 ML IV SCH (01:56)
[2023-06-09] MEDS: LEVOTHYROXINE SODIUM 125 MCG TABLET PO SCH (05:32)
[2023-06-09] MEDS: ACETAMINOPHEN 500 MG TAB PO SCH ×3 (05:32→21:22)
--- NOTE | 2023-06-09 07:33 | Hospitalist Progress Note ---
Date of Service June 09, 2023 Assessment & Plan (1) Influenza A: Plan: 63yo female presenting from home with complaint of severe generalized weakness, fatigue as well as cough and chest congestion. Found to have Influenza A. CXR with possible pneumonia Patient presently afebrile, no respiratory distress. - -Maintain isolation precautions patient's had dramatic improvement with just dialysis and 1 dose of oseltamivir -Supportive care - Tylenol PRN, Robitussin. Tamiflu can be used 30 mg after dialysis sessions With LLL infiltrate on CXR Concern for bacterial PNA as well given CXR finding and elevation of procalcitonin -Follow cultures -Antibiotic coverage with Ceftriaxone and Azithromycin(prior to amputation of leg the patient was being treated with vancomycin for Enterococcus faecium cultures from her foot wounds which are no no longer present since she had a BKA) -Tylenol, Robitussin as needed -Complete 5-day course of ceftriaxone (3-day course of azithromycin) -PT/OT evaluations appreciated. Hopefully patient's acute weakness is due to her Influenza A infection and she will be able to return home (2) ESRD on hemodialysis: Plan: Chronic. Patient with RUE AV fistula with palpable thrill. -Nephrology consultation appreciated. Patient will likely receive HD Tuesday -Continue home medications Renagel -Continue Calcitriol -Avoid nephrotoxic agents. Renal dosing where needed Epogen given 06/08/23 (3) HTN (hypertension): Plan: Chronic and typially stable Blood pressure elevated in the ER. Patient has not taken her medications -Continue Metoprolol -Continue Lisinopril -Continue Clonidine. -Continue Isosorbide -Continue Amlodipine (4) PAD (peripheral artery disease): Plan: Chronic. Stable -Continue ASA and Plavix -Continue Atorvastatin and Zetia -Underwent BKA by Dr. Richardson 05/13/2023 Admission and Anticipated Discharge Date Admission Date: June 07, 2023 Subjective Patient looks much improved after having dialysis and instituting Tamiflu. Tamiflu is renally dosed and only given after dialysis. Patient's at the bedside and discloses that he cannot care for her at home as he got a back injury himself and they have they have struggled mightily since she is returned from her visit to [facility] Patient and both endorse the need for rehab placement after this discharge Physical Exam Physical Exam: Patient's lungs are clear although she is got a dry cough Card exam is regular with a systolic murmur Left stump has dressing in place Results & Data Results & Data Vital Signs (Past 12 Hours) Vital Signs Temp Pulse Resp BP Pulse Ox O2 Del Method 06/09/23 07:16 98.8 F 86 16 131/69 96 Room Air 06/08/23 20:20 99.0 F 106 H 20 148/76 H 96 Room Air 06/08/23 19:45 Room Air Laboratory Results Ordered every other day labs CBC and chemistry PG Care Time/CCT Total # of Minutes Spent Total Time Spent with Patient: Total time spent is greater than 50% in coordination of care (as documented) at patient's floor/unit and/or counseling patient: Coding Level of Care Code 83148 SUB INP/OBS CARE 2/35MIN Diagnoses Influenza A J10.1 ESRD on hemodialysis N18.6; Z99.2 HTN (hypertension) I10 PAD (peripheral artery disease) I73.9
[2023-06-09] MEDS: SEVELAMER HCL 800 MG TABLET PO SCH ×3 (08:02→17:03)
[2023-06-09] MEDS: CALCITRIOL 0.25 MCG CAPSULE PO SCH (09:28)
[2023-06-09] MEDS: SENNA 8.6 MG TAB PO SCH ×2 (09:29→20:18)
[2023-06-09] MEDS: EZETIMIBE 10 MG TAB PO SCH (09:29)
[2023-06-09] MEDS: CLOPIDOGREL BISULFATE 75 MG TAB PO SCH (09:29)
[2023-06-09] MEDS: PANTOprazole 40 MG TAB PO SCH (09:30)
[2023-06-09] MEDS: allopurinoL 100 MG TAB PO SCH (09:30)
[2023-06-09] MEDS: METOPROLOL TARTRATE 25 MG TAB PO SCH ×2 (09:31→20:17)
[2023-06-09] MEDS: amLODIPine BESYLATE 5 MG TAB PO SCH (09:53)
[2023-06-09] MEDS: cloNIDine HCL 0.1 MG TAB PO SCH (09:53)
[2023-06-09] MEDS: lisinopril 40 MG TAB PO SCH (09:53)
[2023-06-09] MEDS: ASPIRIN 81 MG CHEW PO SCH (10:36)
--- NOTE | 2023-06-09 10:40 | Nephrology Progress Note ---
Date of Service June 09, 2023 Assessment & Plan (1) ESRD on hemodialysis: (2) Influenza A: (3) Left lower lobe pneumonia: (4) Anemia due to chronic kidney disease: (5) HTN (hypertension): Plan 63-year-old female with end-stage renal disease, on hemodialysis secondary to diabetic nephropathy, chronic diabetic foot ulcer of left foot status post transmetatarsal amputation on 12/30/22, admitted with generalized weakness, failure to thrive, influenza A and left lower lobe pneumonia. Started empirically on Zithromax and ceftriaxone. On admission she was noted to be volume overloaded, potassium was elevated which slightly improved this morning. Had dialysis yesterday, volume status improved, blood pressure, electrolyte acceptable. --Plan for dialysis tomorrow as a regular schedule --Right arm nephrology precaution for AV fistula, dose medications for eGFR less than 10 -- Received Epogen 20,000 units with dialysis yesterday. --continue Nephrocaps and Renvela Will follow. Thank you for allowing me to participate in your patient's care. It was a pleasure to see Jacqui. Admission and Anticipated Discharge Date Admission Date: June 07, 2023 Annette Osman was seen and evaluated this morning. She seems to be at her baseline, denied any discomfort, shortness of breath or pain. Blood pressure stable. Volume status acceptable. Electrolyte acceptable. Review of Systems Review of Systems: Detailed review of system was done and pertinent positives and negatives were mentioned above. Physical Exam Constitutional: WD/WN, vitals as above + ill appearing; no acute distress Respiratory: Auscultation: lungs clear to auscultation bilaterally Cardiovascular: Rate/Rhythm: regular rate and regular rhythm Heart Sounds: normal S1 and normal S2 Extremities: + AV fistula (Right brachiocephalic AV fistula thrill and bruit) Neurologic: no focal motor deficits Psychiatric: Orientation: alert and oriented x 3 Results & Data Vital Signs (Past 12 Hours) Vital Signs Temp Pulse Resp BP Pulse Ox O2 Del Method 06/09/23 09:25 56 L 111/64 06/09/23 07:16 37.1 C 86 16 131/69 96 Room Air PG Care Time/CCT Total # of Minutes Spent Total Time Spent with Patient: Total time spent is greater than 50% in coordination of care (as documented) at patient's floor/unit and/or counseling patient: Coding Level of Care Code 70674 SUB INP/OBS CARE MIN Diagnoses ESRD on hemodialysis N18.6; Z99.2 Influenza A J10.1 Left lower lobe pneumonia J18.9 Pneumonia type: due to unspecified organism Anemia due to chronic kidney disease N18.9; D63.1 HTN (hypertension) I10 (3) Left lower lobe pneumonia Pneumonia type: due to unspecified organism Qualified Code(s): J18.9 - Pneumonia, unspecified organism
[2023-06-09] MEDS: oxyCODONE HCL IR 5 MG TAB (IMMEDIATE RELEASE) PO PRN ×2 (11:26→20:23)
[2023-06-09] MEDS: ATORVASTATIN 40 MG TAB PO SCH (20:18)
[2023-06-09] MEDS: ISOSORBIDE MONO EXTENDED REL 30 MG TABCR PO SCH (20:19)
[2023-06-09] MEDS: MELATONIN 3 MG TAB PO SCH (20:23)
[2023-06-09] MEDS: PREGABALIN 75 MG CAP PO SCH (20:27)
[2023-06-10] MEDS: cefTRIAXone SODIUM 1,000 MG in DEXTROSE 5 % MINI-B 50 ML IV SCH (01:04)
[2023-06-10 04:58] LABS: Appearance Urine Turbid (Clear); Bacteria Urine Automated 1+ (Negative); Bilirubin Urine Negative (Negative); Blood Urine 3+ (Negative); Color Urine Yellow; Epithelial Cell Urine Auto >30 /lpf (0-5); Glucose Urine UA Negative (Negative); Ketones Urine Negative (Negative); Leukocyte Esterase Urine 3+ (Negative); Nitrite Urine Negative (Negative); Protein Urine 3+ (Negative); Specific Gravity Urine 1.011 (1.000-1.030); Urobilinogen Urine Negative (Negative); WBC Urine Automated >30 /hpf (0-5)
[2023-06-10 05:09] LABS: RBC Urine Automated 0-4 /hpf (0-4)
[2023-06-10] MEDS: ACETAMINOPHEN 500 MG TAB PO SCH ×3 (05:38→20:38)
[2023-06-10] MEDS: oxyCODONE HCL IR 5 MG TAB (IMMEDIATE RELEASE) PO PRN ×2 (05:38→20:43)
[2023-06-10] MEDS: LEVOTHYROXINE SODIUM 125 MCG TABLET PO SCH (05:38)
[2023-06-10] MEDS ORDERED: DEXTROSE 50% 50 ML SYRINGE IV PRN (07:45)
[2023-06-10] MEDS ORDERED: CARBOHYDRATES FOR HYPOGLYCEMIA PO PRN (07:45)
[2023-06-10] MEDS ORDERED: GLUCAGON FOR INJ 1 MG VIAL IM PRN (07:45)
[2023-06-10] MEDS ORDERED: GLUCOSE 40% GEL 15 GM TUBE PO PRN (07:45)
[2023-06-10] MEDS ORDERED: GLUCOSE 10 TAB/TUBE PO PRN (07:45)
[2023-06-10] MEDS ORDERED: EPOETIN ALFA 10,000 UNITS/ML VIAL IV STA (08:18)
--- NOTE | 2023-06-10 08:39 | Hospitalist Progress Note ---
Date of Service June 10, 2023 Assessment & Plan (1) Influenza A: Plan: 63yo female presenting from home with complaint of severe generalized weakness, fatigue as well as cough and chest congestion. Found to have Influenza A. CXR with possible pneumonia Patient presently afebrile, no respiratory distress. - -Maintain isolation precautions patient's had dramatic improvement with just dialysis and 1 dose of oseltamivir -Supportive care - Tylenol PRN, Robitussin. Tamiflu can be used 30 mg after dialysis sessions With LLL infiltrate on CXR Concern for bacterial PNA as well given CXR finding and elevation of procalcitonin -Follow cultures -Patient lost peripheral IV access will transition to just azithromycin as low suspicion of bacterial secondary pneumonia feels most of her issues are revolving around influenza pneumonia -Tylenol, Robitussin as needed -Complete 5-day course of ceftriaxone (3-day course of azithromycin) -PT/OT evaluations appreciated. Hopefully patient's acute weakness is due to her Influenza A infection and she will be able to return home (2) ESRD on hemodialysis: Plan: Chronic. Patient with RUE AV fistula with palpable thrill. -Nephrology consultation appreciated. Patient will likely receive HD Tuesday -Continue home medications Renagel -Continue Calcitriol -Avoid nephrotoxic agents. Renal dosing where needed Epogen given 06/08/23 Anemia of chronic disease (3) HTN (hypertension): Plan: Chronic and typially stable Blood pressure elevated in the ER. Patient has not taken her medications -Continue Metoprolol -Continue Lisinopril -Continue Clonidine. -Continue Isosorbide -Continue Amlodipine (4) PAD (peripheral artery disease): Plan: Chronic. Stable -Continue ASA and Plavix -Continue Atorvastatin and Zetia -Underwent BKA by Dr. Richardson 05/13/2023 Admission and Anticipated Discharge Date Admission Date: June 07, 2023 Results & Data Results & Data Vital Signs (Past 12 Hours) Vital Signs Temp Pulse Resp BP Pulse Ox O2 Del Method 06/10/23 06:44 98.2 F 60 18 136/78 95 Room Air PG Care Time/CCT Total # of Minutes Spent Total Time Spent with Patient: Total time spent is greater than 50% in coordination of care (as documented) at patient's floor/unit and/or counseling patient: Coding Diagnoses Influenza A J10.1 ESRD on hemodialysis N18.6; Z99.2 HTN (hypertension) I10 PAD (peripheral artery disease) I73.9
[2023-06-10] MEDS: amLODIPine BESYLATE 5 MG TAB PO SCH (08:41)
[2023-06-10] MEDS: SENNA 8.6 MG TAB PO SCH ×2 (08:41→20:37)
[2023-06-10] MEDS: lisinopril 40 MG TAB PO SCH (08:41)
[2023-06-10] MEDS: cloNIDine HCL 0.1 MG TAB PO SCH (08:41)
[2023-06-10] MEDS: METOPROLOL TARTRATE 25 MG TAB PO SCH ×2 (08:41→20:38)
[2023-06-10] MEDS: SEVELAMER HCL 800 MG TABLET PO SCH ×3 (08:41→16:14)
[2023-06-10] MEDS: CLOPIDOGREL BISULFATE 75 MG TAB PO SCH (08:41)
[2023-06-10] MEDS: PANTOprazole 40 MG TAB PO SCH (08:43)
[2023-06-10] MEDS: allopurinoL 100 MG TAB PO SCH (08:43)
[2023-06-10] MEDS: EZETIMIBE 10 MG TAB PO SCH (08:43)
[2023-06-10] MEDS ORDERED: AZITHROMYCIN 250 MG TAB PO SCH (09:00)
[2023-06-10] MEDS: ASPIRIN 81 MG CHEW PO SCH (09:23)
[2023-06-10] MEDS: CALCITRIOL 0.25 MCG CAPSULE PO SCH (09:28)
--- NOTE | 2023-06-10 13:40 | Orthopedic Consultation ---
Date of Consultation June 10, 2023 Assessment & Plan (1) Left lower lobe pneumonia: Patient seen and examined during this stay for treatment of influenza A and pneumonia. Left lower extremity below-knee amputation intact and progressing with normal healing pattern. Continue with conservative management including standard sterile dressing changes QOD. 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 No weightbearing left lower extremity. Maintain rafa until seen in follow-up in approximately 2 to 3 weeks when discharged from [facility] and/or further shelter care. Thank you for the opportunity to consult in the care of this patient. Dc Richardson DO [facility] [phone] (2) Influenza A: (3) ESRD on hemodialysis: (4) Below-knee amputation of left lower extremity: History of Present Illness Reason for Consultation: Left leg pain, weakness and acute influenza with respiratory distress. Requesting Physician: Barrett Rocha MD Attending Physician: Barrett Rocha MD History of Present Illness This pleasant 63-year-old female well-known to my service with recent admission for acute influenza, weakness and respiratory distress. Patient was having some left leg pain within expectations. The patient had recent left below-knee amputation and was progressing well with her recovery with the exception of lower limb moderate phantom limb pain of the left managed by Neurontin. No evidence of drainage from the left residual leg and patient has been progressing well with her recovery. She has used the plc engineer sock and brace without difficulty. Allergies Allergy/AdvReac Type Severity Reaction Status Date / Time morphine Allergy Severe Hallucinati Verified 06/07/23 22:58 ng codeine Allergy Intermediate Redness of Verified 06/07/23 22:58 Skin prednisone Allergy Intermediate Itching Verified 06/07/23 22:58 Home Medications Medication Instructions Recorded Confirmed Type albuterol sulfate 90 mcg/actuation 1 puff inhalation QID PRN bad cough 11/12/22 06/07/23 History aerosol inhaler allopurinol 100 mg tablet 100 mg PO DAILY 11/12/22 06/07/23 History ascorbic acid (vitamin C) 500 mg 500 mg PO DAILY 11/12/22 06/07/23 History capsule aspirin 81 mg chewable tablet 81 mg PO DAILY 11/12/22 06/07/23 History atorvastatin 40 mg tablet (Lipitor) 40 mg PO HS 11/12/22 06/07/23 History cholecalciferol (vitamin D3) 50 50 mcg PO DAILY 11/12/22 06/07/23 History mcg (2,000 unit) tablet clonidine HCl 0.1 mg tablet 0.1 mg PO DAILY 11/12/22 06/07/23 History clopidogrel 75 mg tablet 75 mg PO DAILY 11/12/22 06/07/23 History denosumab 60 mg/mL subcutaneous 60 mg subcut Q6M 11/12/22 06/07/23 History syringe (Prolia) docusate sodium 100 mg capsule 100 mg PO DAILY PRN Constipation 11/12/22 06/07/23 History (Colace) ezetimibe 10 mg tablet 10 mg PO DAILY 11/12/22 06/07/23 History furosemide 40 mg tablet (Lasix) 40 mg PO DAILY 11/12/22 06/07/23 History isosorbide mononitrate 30 mg 30 mg PO HS 11/12/22 06/07/23 History tablet,extended release 24 hr levothyroxine 125 mcg tablet 125 mcg PO QAM 11/12/22 06/07/23 History lisinopril 40 mg tablet (Zestril) 40 mg PO DAILY 11/12/22 06/07/23 History loratadine 10 mg tablet 10 mg PO DAILY PRN allergies 11/12/22 06/07/23 History melatonin 10 mg capsule 10 mg PO HS 11/12/22 06/07/23 History metoprolol tartrate 50 mg tablet 25 mg PO AMPM 11/12/22 06/07/23 History nitroglycerin 0.4 mg sublingual 0.4 mg sublingual DIRECTED PRN 11/12/22 06/07/23 History tablet Chest Pain sevelamer carbonate 800 mg tablet 800 mg PO TIDM 11/12/22 06/07/23 History vit B,C-folic ac 800 mcg-zinc 12.5 1 tab PO DAILY 11/12/22 06/07/23 History mg-selen-D3 2,000 unit-vit E tablet (RenaPlex-D) acetaminophen 325 mg tablet 650 mg (2 x 325 mg) PO Q4H PRN 01/05/23 06/07/23 Rx fever or pain #0 tabs sennosides 8.6 mg tablet (Senokot) 17.2 mg (2 x 8.6 mg) PO BID #0 tabs 01/05/23 06/07/23 Rx calcium carbonate 500 mg-vitamin 1 tab PO BID 03/14/23 06/07/23 History D3 10 mcg (400 unit) tablet (Oyster Shell Calcium-Vitamin D3) amlodipine 10 mg tablet 10 mg PO DAILY #30 tabs 04/07/23 06/07/23 Rx calcitriol 0.25 mcg capsule 0.25 mcg PO QAM #30 caps 04/07/23 06/07/23 Rx heparin, porcine (PF) 5,000 0 unit subcut DIRECTED 06/07/23 06/07/23 History unit/0.5 mL injection syringe meloxicam 15 mg tablet 15 mg PO DAILY 06/07/23 06/07/23 History omeprazole 40 mg capsule,delayed 40 mg PO DAILY 06/07/23 06/07/23 History release oxycodone 5 mg tablet 5 mg PO Q6 PRN Pain 06/07/23 06/07/23 History pregabalin 75 mg capsule 75 mg PO HS 06/07/23 06/07/23 History azithromycin 250 mg tablet 250 mg PO QAM #3 tabs 06/10/23 Rx oseltamivir 6 mg/mL oral 30 mg (5 mL) PO MoWeFr@1600 #2 mL 06/10/23 Rx suspension (Tamiflu) Patient History Medical History Anemia due to chronic kidney disease Depression Open wound of left foot PAD (peripheral artery disease) ESRD (end stage renal disease) on dialysis HD . Follows with Dr. Mike Espinal CHF (congestive heart failure) Osteomyelitis of left foot Hypothyroidism Anemia Tobacco abuse Hyperlipidemia HTN (hypertension) CAD (coronary artery disease) DM II (diabetes mellitus, type II), controlled Surgical History S/P drug eluting coronary stent placement Social History Smoking Status: Former smoker Tobacco Type: Cigarettes Cigarettes Per Day: 5; Second Hand Exposure: No; Do You Dip or Chew Tobacco: No; Hx Alcohol Use: No Hx Substance Use: No Preferred Language: Macedonian Communication Ability: Effective Press Washer Required: No Beliefs That Will Affect Care: None Current Living Situation: Spouse Feels Safe at Home: Yes Assistive Devices: Wheelchair Physical Exam Constitutional: WD/WN, vitals as above Eyes: PERRL, conjunctivae normal, anicteric sclerae ENMT: external ear and nose normal, oropharynx normal Neck: trachea midline, no thyromegaly Respiratory: No current, acute conversational dyspnea or labored breathing. Patient is wearing a mask to prevent spread of droplet nuclei. Musculoskeletal: Examination of the left lower extremity in brace and plc engineer sock on the left. Minimal tenderness with palpation at the distal left lower extremity stump. Dressing intact. No evidence of strikethrough. Compartments are soft. Neurologic: PERRL, EOMI, accommodation nl, no face palsy, no dysarthria Psychiatric: A+Ox3, euthymic affect Results & Data Vital Signs (Past 12 Hours) Vital Signs Temp Pulse Pulse Pulse Resp BP BP 06/10/23 12:30 61 131/62 06/10/23 12:00 67 135/58 L 06/10/23 11:30 68 147/58 H 06/10/23 11:00 51 L 135/55 L 06/10/23 10:30 53 L 135/54 L 06/10/23 10:00 55 L 152/60 H 06/10/23 09:45 36.7 C 61 06/10/23 08:00 63 18 158/69 H 06/10/23 06:44 36.8 C 60 18 136/78 Pulse Ox O2 Del Method 06/10/23 12:30 06/10/23 12:00 06/10/23 11:30 06/10/23 11:00 06/10/23 10:30 06/10/23 10:00 06/10/23 09:45 06/10/23 08:00 97 Room Air 06/10/23 06:44 95 Room Air Laboratory Results Reviewed. (1) Left lower lobe pneumonia Pneumonia type: due to unspecified organism Qualified Code(s): J18.9 - Pneumonia, unspecified organism
--- NOTE | 2023-06-10 15:13 | Nephrology Progress Note ---
Date of Service June 10, 2023 Assessment & Plan (1) ESRD on hemodialysis: (2) Influenza A: (3) Left lower lobe pneumonia: (4) Anemia due to chronic kidney disease: (5) HTN (hypertension): Plan 63-year-old female with end-stage renal disease, on hemodialysis secondary to diabetic nephropathy, chronic diabetic foot ulcer of left foot status post transmetatarsal amputation on 12/30/22, admitted with generalized weakness, failure to thrive, influenza A and left lower lobe pneumonia. Started empirically on Zithromax and ceftriaxone. Received Tamiflu On admission she was noted to be volume overloaded, potassium was elevated which slightly improved this morning. Volume status improved, blood pressure, electrolyte acceptable. --Plan for dialysis today, seems close to baseline, OK to DC after HD. --Right arm nephrology precaution for AV fistula, dose medications for eGFR less than 10 --Received Epogen 20,000 units with last dialysis. --continue Nephrocaps and Renvela Will follow. Admission and Anticipated Discharge Date Admission Date: June 07, 2023 Subjective Jacqui was seen and evaluated this morning. She has been doing well, denied any discomfort, shortness of breath or pain. Blood pressure stable. Volume status acceptable. Electrolyte acceptable. Review of Systems Review of Systems: Detailed review of system was done and pertinent positives and negatives were mentioned above. Physical Exam Constitutional: WD/WN, vitals as above no acute distress Respiratory: Auscultation: lungs clear to auscultation bilaterally Cardiovascular: Rate/Rhythm: regular rate and regular rhythm Heart Sounds: normal S1 and normal S2 Extremities: + AV fistula (Right brachiocephalic AV fistula thrill and bruit) Neurologic: no focal motor deficits Psychiatric: Orientation: alert and oriented x 3 Results & Data Vital Signs (Past 12 Hours) Vital Signs Temp Pulse Pulse Pulse Resp BP BP 06/10/23 15:05 36.6 C 67 18 162/69 H 06/10/23 13:25 36.7 C 79 156/67 H 06/10/23 13:00 67 151/67 H 06/10/23 12:30 61 131/62 06/10/23 12:00 67 135/58 L 06/10/23 11:30 68 147/58 H 06/10/23 11:00 51 L 135/55 L 06/10/23 10:30 53 L 135/54 L 06/10/23 10:00 55 L 152/60 H 06/10/23 09:45 36.7 C 61 06/10/23 08:00 63 18 158/69 H 06/10/23 07:30 06/10/23 06:44 36.8 C 60 18 136/78 Pulse Ox O2 Del Method 06/10/23 15:05 96 Room Air 06/10/23 13:25 06/10/23 13:00 06/10/23 12:30 06/10/23 12:00 06/10/23 11:30 06/10/23 11:00 06/10/23 10:30 06/10/23 10:00 06/10/23 09:45 06/10/23 08:00 97 Room Air 06/10/23 07:30 Room Air 06/10/23 06:44 95 Room Air PG Care Time/CCT Total # of Minutes Spent Total Time Spent with Patient: Total time spent is greater than 50% in coordination of care (as documented) at patient's floor/unit and/or counseling patient: Coding Level of Care Code 66572 SUB INP/OBS CARE 2/35MIN Diagnoses ESRD on hemodialysis N18.6; Z99.2 Influenza A J10.1 Left lower lobe pneumonia J18.9 Pneumonia type: due to unspecified organism Anemia due to chronic kidney disease N18.9; D63.1 HTN (hypertension) I10 (3) Left lower lobe pneumonia Pneumonia type: due to unspecified organism Qualified Code(s): J18.9 - Pneumonia, unspecified organism
--- NOTE | 2023-06-10 15:44 | Discharge Summary ---
Date of Service June 10, 2023 Admission HPI Per Admitting Provider Jacqui Hudson is a pleasant 63yo female with multiple medical comorbidities including ESRD on HD M/W/F (last HD on 06/05/23), PAD, HTN, HLP, DM and CAD. Patient was admitted to [facility] from 05/06/23 - 05/17/23 after presenting with malodorous discharge from the left foot. She had a left BKA performed by Dr. Richardson on 05/13/23. She was discharged to [facility] on 05/17/23. She reports that things went fairly well at rehab and she felt that she was getting stronger. She returned home on 05/31/23 and has since been declining. She is unable to care for herself. Her reports that over the last two days she has been very weak and tired. She slept most of the day yesterday and her had to feed her. Today she was too weak to hold a spoon. She also lost her balance today and fell forward striking her face. She reports ongoing pain in the left leg which is stable and unchanged. No increased pain, redness or drainage from the surgical site. She does report some chest congestion as well as cough with sputum production, poor appetite, fatigue. She denies fever, chills, shortness of breath, nausea, vomiting or diarrhea. In the ER she is afebrile, HD stable ER Course: Hydralazine 10mg po Amlodipine 10mg po Cefepime 2gm IV Admission Exam Per Admitting Provider metabolic encephalopathy secondary to influenza pneumonia poa esrd on [employer] Principal Diagnosis Metabolic encephalopathy from influenza pneumonia present on admission End-stage renal disease with renal replacement therapy Discharge Exam Patient's lungs are clear although she is got a dry cough Card exam is regular with a systolic murmur Left stump has dressing in place Discharge Data Allergies Allergy/AdvReac Type Severity Reaction Status Date / Time morphine Allergy Severe Hallucinati Verified 06/07/23 22:58 ng codeine Allergy Intermediate Redness of Verified 06/07/23 22:58 Skin prednisone Allergy Intermediate Itching Verified 06/07/23 22:58 Consultations 06/07/23 21:20 ED Decision to Admit Stat 06/07/23 21:57 Consult Nephrology Routine Ordered Studies 06/07/23 16:04 US venous doppler LE RT Stat Hospital Course (1) Influenza A: 63yo female presenting from home with complaint of severe generalized weakness, fatigue as well as cough and chest congestion. Found to have Influenza A. CXR with possible pneumonia Patient presently afebrile, no respiratory distress. - -Maintain isolation precautions patient's had dramatic improvement with just dialysis and 1 dose of oseltamivir -Supportive care - Tylenol PRN, Robitussin. Tamiflu can be used 30 mg after dialysis sessions With LLL infiltrate on CXR Concern for bacterial PNA as well given CXR finding and elevation of procalcitonin -Patient lost peripheral IV access will transition to just azithromycin as low suspicion of bacterial secondary pneumonia feels most of her issues are revolving around influenza pneumonia -Tylenol, Robitussin as needed -5-day course of azithromycin) -PT/OT evaluations appreciated. PTs sustained serious back injury and cannot help pt, she is with recent BKA and witout prothesis cannot transfer without significant help, to rehab (2) ESRD on hemodialysis: Chronic. Patient with RUE AV fistula with palpable thrill. -Nephrology consultation appreciated. Patient will likely receive HD Tuesday -Continue home medications Renagel -Continue Calcitriol -Avoid nephrotoxic agents. Renal dosing where needed Epogen given 06/08/23 Anemia of chronic disease (3) HTN (hypertension): Chronic and typially stable Blood pressure elevated in the ER. Patient has not taken her medications -Continue Metoprolol -Continue Lisinopril -Continue Clonidine. -Continue Isosorbide -Continue Amlodipine (4) PAD (peripheral artery disease): Chronic. Stable -Continue ASA and Plavix -Continue Atorvastatin and Zetia -Underwent BKA by Dr. Richardson 05/13/2023, seen in hospital 06/10, will follow up in office in about 2 weeks Total Time Total Time Spent Total Time Spent (In Minutes): It required greater than 30 minutes to prepare this patient for discharge. Discharge Plan Discharge Items Patient Disposition: Transfer Inpatient Rehab Fac Reason For Visit: GENERALIZED WEAKNESS Discharge Diagnosis: metabolic encephalopahty from influenza esrd on dialysis MWF Activity: Resume your previous activity Non-emergency contact: Primary Care Provider and Neon Sign Servicer Call non-emergency contact if: your symptoms worsen Follow-up/Referrals: Christina Alcantar PA-C [Primary Care Provider] - 06/23/23 10:40 am Diet: Dialysis Renal Addtl Attending Provider Instructions: complete 2 additional doses of Tamiflu 30 mg, each dose after the next 2 dialysis sessions Pending Studies at Discharge: No Stand-Alone Forms: My [facility] Skilled Items Patient informed of condition?: Yes DNR: No Discharge Level of Care: Skilled Communicable Disease: Yes Discharge Prognosis: Stable Lines: None Urinary Catheter: No Medications and DC Order Prescriptions: New azithromycin 250 mg Tablet 250 mg PO QAM Qty: 3 0RF oseltamivir [Tamiflu] 6 mg/mL Suspension For Reconstitution 30 mg PO MoWeFr@1600 Qty: 2 0RF Continued calcium carbonate-vitamin D3 [Oyster Shell Calcium-Vit D3] 500 mg-10 mcg (400 unit) tablet 1 tab PO BID amlodipine 10 mg tablet 10 mg PO DAILY Qty: 30 0RF calcitriol 0.25 mcg Capsule 0.25 mcg PO QAM Qty: 30 0RF omeprazole 40 mg capsule,delayed release(DR/EC) 40 mg PO DAILY pregabalin 75 mg capsule 75 mg PO HS oxycodone 5 mg tablet 5 mg PO Q6 PRN (Reason: Pain) heparin, porcine (PF) 5,000 unit/0.5 mL syringe 0 unit subcut DIRECTED meloxicam 15 mg tablet 15 mg PO DAILY furosemide [Lasix] 40 mg tablet 40 mg PO DAILY atorvastatin [Lipitor] 40 mg tablet 40 mg PO HS clonidine HCl 0.1 mg tablet 0.1 mg PO DAILY isosorbide mononitrate 30 mg tablet extended release 24 hr 30 mg PO HS clopidogrel 75 mg tablet 75 mg PO DAILY allopurinol 100 mg tablet 100 mg PO DAILY levothyroxine 125 mcg tablet 125 mcg PO QAM metoprolol tartrate 50 mg tablet 25 mg PO AMPM nitroglycerin 0.4 mg tablet, sublingual 0.4 mg sublingual DIRECTED PRN (Reason: Chest Pain) Rx Instructions: Take 1 tablet by mouth every 5 minutes X3 for chest pain as needed aspirin 81 mg tablet,chewable 81 mg PO DAILY albuterol sulfate 90 mcg/actuation HFA aerosol inhaler 1 puff INHALATION QID PRN (Reason: bad cough) lisinopril [Zestril] 40 mg tablet 40 mg PO DAILY loratadine 10 mg tablet 10 mg PO DAILY PRN (Reason: allergies) ezetimibe 10 mg tablet 10 mg PO DAILY sevelamer carbonate 800 mg tablet 800 mg PO TIDM cholecalciferol (vitamin D3) 50 mcg (2,000 unit) tablet 50 mcg PO DAILY Prolia 60 mg/mL syringe 60 mg SUBCUT Q6M melatonin 10 mg capsule 10 mg PO HS ascorbic acid (vitamin C) 500 mg capsule 500 mg PO DAILY RenaPlex-D 800 mcg-12.5 mg -2,000 unit tablet 1 tab PO DAILY docusate sodium [Colace] 100 mg Capsule 100 mg PO DAILY PRN (Reason: Constipation) acetaminophen 325 mg Tablet 650 mg PO Q4H PRN (Reason: fever or pain) Qty: 0 0RF sennosides [Senokot] 8.6 mg Tablet 17.2 mg PO BID Qty: 0 0RF Discharge Orders: Discharge Order (Routine); Ordered 06/10/23 Ordered By: Barrett Rocha Admission Data Admit Date/Time: 06/07/23 21:57 Attending Provider: Barrett Rocha Admit Provider: Dalia Vang Primary Care Provider: Christina Alcantar Other Providers: Isabelle Gardiner; Dalia Vang; [facility] Coding Level of Care Code 08793 INP/OBS DISCH >30 MIN Diagnoses Influenza A J10.1 ESRD on hemodialysis N18.6; Z99.2 HTN (hypertension) I10 PAD (peripheral artery disease) I73.9
[2023-06-10] MEDS: OSELTAMIVIR PHOSPHATE SUSP 30 MG/5 ML UDP PO SCH (16:15)
[2023-06-10 16:59] LABS: Hemoglobin 8.5 g/dl (12.0-16.0); Mean Corpuscular Hemoglobin 31.7 pg (25.0-34.0); Mean Corpuscular Hgb Conc 32.7 g/dL (32.0-36.0); Mean Platelet Volume 11.7 fL (9.4-12.4); Platelet Count 54 K/uL (130-400); RDW Coefficient of Variation 17.6 % (11.5-14.5); RDW Standard Deviation 62.9 fL (36.4-46.3); Red Blood Count 2.68 M/uL (4.20-5.40); White Blood Count 3.77 K/ul (4.8-10.8)
[2023-06-10 17:12] LABS: BUN Creatinine Ratio 7.7 (10-20); Calcium 7.4 mg/dl (8.6-10.3); Creatinine Clr Calc Pharmacy 28.9 ml/min; Est GFR (African American) 37.3 ml/min; Est GFR (Non-African American) 32.2 ml/min; Potassium 3.5 mmol/L (3.5-5.1)
[2023-06-10] MEDS: PREGABALIN 75 MG CAP PO SCH (20:37)
[2023-06-10] MEDS: MELATONIN 3 MG TAB PO SCH (20:37)
[2023-06-10] MEDS: ISOSORBIDE MONO EXTENDED REL 30 MG TABCR PO SCH (20:38)
[2023-06-10] MEDS: ATORVASTATIN 40 MG TAB PO SCH (20:38)
[2023-06-10] MEDS ORDERED: AZITHROMYCIN 250 MG in DEXTROSE 5% 250 ML IV SCH (23:00)
[2023-06-12 06:07] LABS: HBSAG NON-REACTIVE (NON-REACTIVE); Hepatitis B Surface Ab, Quant 37 mIU/mL (> OR = 10)
== END 2023-06-10 21:02 | DRG 193 ==
LOC: ED 15:16 → SUATTDRO 21:57 → EDINP 21:57 → 3W 06-08 00:44